=== PATIENT | female | born 1960 | race Caucasian/White ===

== ENCOUNTER 2020-04-12 11:26 | Day surgery (SDC) | payer MEDICAID, SELFPAY ==
[2020-04-05 13:34] VITALS: BMI 34.0
--- NOTE | 2020-04-11 14:24 | HO.ANESPROP2 ---
Documented by User: Malgorzata Doss 04/11/20 14:26 HPI - Anesthesia Eval Consult details Narrative: 59yo F for Upper Endoscopy and Colonoscopy [facility] Past Medical History Medical History Asthma Depression Diabetes Elevated cholesterol Fibromyalgia GERD (gastroesophageal reflux disease) Hepatitis HTN (hypertension) Neuropathy Sleep apnea Surgical History Surgical History Hx of excision of mass Hx of hernia repair S/P insertion of spinal cord stimulator Social History Social History Smoking Status: Current every day smoker Tobacco Type: Cigarette Cigarettes Per Day: 20 Years Smoked: 48 Use of substances other than those prescribed or required for medical reasons: No Advance Directives Information Provided: No Meds Allergies Allergy/AdvReac Type Severity Reaction Status Date / Time iodine Allergy Severe THROAT Verified 04/05/20 13:32 CLOSES ibuprofen AdvReac Intermediate UPSET Verified 04/05/20 13:32 STOMACH Home Medications Medication Instructions Recorded Confirmed Type albuterol sulfate [ProAir HFA] 2 puff INHALATION Q4-6H PRN 04/05/20 04/05/20 History atorvastatin 20 mg PO BEDTIME 04/05/20 04/05/20 History bupropion HCl [Wellbutrin XL] 150 mg PO QAM 04/05/20 04/05/20 History clonazepam 0.5 mg PO BEDTIME 04/05/20 04/05/20 History docusate sodium [Colace] 100 mg PO DAILY 04/05/20 04/05/20 History duloxetine 30 mg PO DAILY 04/05/20 04/05/20 History fluticasone furoate [Veramyst] 1 spray INTRANASAL DAILY 04/05/20 04/05/20 History fluticasone propionate [Flovent 1 puff INHALATION BID 04/05/20 04/05/20 History HFA] gabapentin 800 mg PO DAILY 04/05/20 04/05/20 History insulin detemir U-100 [Levemir SUBCUT 04/05/20 History U-100 Insulin] lactulose 10 g PO BEDTIME 04/05/20 04/05/20 History lisinopril 20 mg PO DAILY 04/05/20 04/05/20 History loratadine 10 mg PO DAILY 04/05/20 04/05/20 History meloxicam 15 mg PO DAILY 04/05/20 04/05/20 History metformin 500 mg PO BID 04/05/20 04/05/20 History oxycodone-acetaminophen [Percocet] 1 tab PO Q6H PRN 04/05/20 04/12/20 History pantoprazole 40 mg PO DAILY 04/05/20 04/05/20 History sucralfate [Carafate] 1 g PO BID 04/05/20 04/05/20 History trazodone 100 mg PO BEDTIME 04/05/20 04/05/20 History Exam Exam Date and Time: April 11, 2020 1424 Height,Weight and Vital Signs: Height 5 ft 4 in Weight 89.811 kg Assessment and Plan Assessment Anesthesia Assessment: Chart Reviewed Documented by User: Edith Lopez 04/12/20 11:42 PMFSH Past Medical History Medical History Asthma Depression Diabetes Elevated cholesterol Fibromyalgia GERD (gastroesophageal reflux disease) Hepatitis HTN (hypertension) Neuropathy Sleep apnea Surgical History Surgical History Hx of excision of mass Hx of hernia repair S/P insertion of spinal cord stimulator Social History Social History Smoking Status: Current every day smoker Tobacco Type: Cigarette Cigarettes Per Day: 20 Years Smoked: 48 Use of substances other than those prescribed or required for medical reasons: No Advance Directives Information Provided: No Meds Allergies Allergy/AdvReac Type Severity Reaction Status Date / Time iodine Allergy Severe THROAT Verified 04/05/20 13:32 CLOSES ibuprofen AdvReac Intermediate UPSET Verified 04/05/20 13:32 STOMACH Home Medications Medication Instructions Recorded Confirmed Type albuterol sulfate [ProAir HFA] 2 puff INHALATION Q4-6H PRN 04/05/20 04/05/20 History atorvastatin 20 mg PO BEDTIME 04/05/20 04/05/20 History bupropion HCl [Wellbutrin XL] 150 mg PO QAM 04/05/20 04/05/20 History clonazepam 0.5 mg PO BEDTIME 04/05/20 04/05/20 History docusate sodium [Colace] 100 mg PO DAILY 04/05/20 04/05/20 History duloxetine 30 mg PO DAILY 04/05/20 04/05/20 History fluticasone furoate [Veramyst] 1 spray INTRANASAL DAILY 04/05/20 04/05/20 History fluticasone propionate [Flovent 1 puff INHALATION BID 04/05/20 04/05/20 History HFA] gabapentin 800 mg PO DAILY 04/05/20 04/05/20 History insulin detemir U-100 [Levemir SUBCUT 04/05/20 History U-100 Insulin] lactulose 10 g PO BEDTIME 04/05/20 04/05/20 History lisinopril 20 mg PO DAILY 04/05/20 04/05/20 History loratadine 10 mg PO DAILY 04/05/20 04/05/20 History meloxicam 15 mg PO DAILY 04/05/20 04/05/20 History metformin 500 mg PO BID 04/05/20 04/05/20 History oxycodone-acetaminophen [Percocet] 1 tab PO Q6H PRN 04/05/20 04/12/20 History pantoprazole 40 mg PO DAILY 04/05/20 04/05/20 History sucralfate [Carafate] 1 g PO BID 04/05/20 04/05/20 History trazodone 100 mg PO BEDTIME 04/05/20 04/05/20 History Exam Airway Mallampati Class: III TM Dist: >3cm Neck ROM: Full Heart: RRR Lungs: CTA
[2020-04-12 11:34] VITALS: BP 152/72; PULSE 76; RESP 16; TEMP 36.4; O2SAT 97
--- NOTE | 2020-04-12 11:42 | HO.ANESPROP2 ---
[facility] Past Medical History Medical History Asthma Depression Diabetes Elevated cholesterol Fibromyalgia GERD (gastroesophageal reflux disease) Hepatitis HTN (hypertension) Neuropathy Sleep apnea Surgical History Surgical History Hx of excision of mass Hx of hernia repair S/P insertion of spinal cord stimulator Social History Social History Smoking Status: Current every day smoker Tobacco Type: Cigarette Cigarettes Per Day: 20 Years Smoked: 48 Use of substances other than those prescribed or required for medical reasons: No Advance Directives Information Provided: No Meds Allergies Allergy/AdvReac Type Severity Reaction Status Date / Time iodine Allergy Severe THROAT Verified 04/05/20 13:32 CLOSES ibuprofen AdvReac Intermediate UPSET Verified 04/05/20 13:32 STOMACH Home Medications Medication Instructions Recorded Confirmed Type albuterol sulfate [ProAir HFA] 2 puff INHALATION Q4-6H PRN 04/05/20 04/05/20 History atorvastatin 20 mg PO BEDTIME 04/05/20 04/05/20 History bupropion HCl [Wellbutrin XL] 150 mg PO QAM 04/05/20 04/05/20 History clonazepam 0.5 mg PO BEDTIME 04/05/20 04/05/20 History docusate sodium [Colace] 100 mg PO DAILY 04/05/20 04/05/20 History duloxetine 30 mg PO DAILY 04/05/20 04/05/20 History fluticasone furoate [Veramyst] 1 spray INTRANASAL DAILY 04/05/20 04/05/20 History fluticasone propionate [Flovent 1 puff INHALATION BID 04/05/20 04/05/20 History HFA] gabapentin 800 mg PO DAILY 04/05/20 04/05/20 History insulin detemir U-100 [Levemir SUBCUT 04/05/20 History U-100 Insulin] lactulose 10 g PO BEDTIME 04/05/20 04/05/20 History lisinopril 20 mg PO DAILY 04/05/20 04/05/20 History loratadine 10 mg PO DAILY 04/05/20 04/05/20 History meloxicam 15 mg PO DAILY 04/05/20 04/05/20 History metformin 500 mg PO BID 04/05/20 04/05/20 History oxycodone-acetaminophen [Percocet] 1 tab PO Q6H PRN 04/05/20 04/12/20 History pantoprazole 40 mg PO DAILY 04/05/20 04/05/20 History sucralfate [Carafate] 1 g PO BID 04/05/20 04/05/20 History trazodone 100 mg PO BEDTIME 04/05/20 04/05/20 History Exam Exam Date and Time: April 12, 2020 1142 Height,Weight and Vital Signs: Height 5 ft 4 in Weight 89.811 kg Last Vital Signs Temp 97.5 F 04/12/20 11:34 Pulse 76 04/12/20 11:34 Resp 16 04/12/20 11:34 BP 152/72 H 04/12/20 11:34 Pulse Ox 97 04/12/20 11:34 Assessment and Plan Assessment Anesthesia Assessment: Anesthesia Plan Discussed, Smoking Cess. Discussed and Chart Reviewed Final Anesthetic Review NPO: Yes ASA Class: III Final Preanesthetic Review: No Changes in Pt Med Stat, Meds/Allgs Chart Reviewed, Consent Obtained/Reviewed and Anes Risks/Benef Reviewed Patient Risk: Intermediate Anesthetic Plan Anesthetic Plan: MAC: Disposition: Standard PACU
--- NOTE | 2020-04-12 12:12 | MHC.SHP ---
Pre-Procedural Eval Section B Chief Complaint: EPIGASTRIC PAIN, SCREENING Relevant Social History: Tobacco Use Present Medications: see Short Stay Collaborative assessment Medical History: Significant History (Asthma, Depression, Diabetes, Elevated cholesterol, Fibromyalgia, GERD (gastroesophageal reflux disease), Hepatitis, HTN (hypertension), Neuropathy, Sleep apnea) History of Previous Operations: Relevant previous surgery/procedure and date(s) (hernia repair) Allergies: Allergies Allergy/AdvReac Type Severity Reaction Status Date / Time iodine Allergy Severe THROAT Verified 04/05/20 13:32 CLOSES ibuprofen AdvReac Intermediate UPSET Verified 04/05/20 13:32 STOMACH Review of Systems Sugical H&P ROS: Negative: Constitution, Cardiovascular, Respiratory, Neurological, Psychiatric, Hem-Onc, Allergic/Immunologic, Gastrointestinal, Genitourinary, Musculoskeletal, Integumentary, Endocrine and Eyes/Ears/Nose/Throat Exam Surgical H&P Exam: Normal: HEENT, Normal: Heart, Normal: Lungs, Normal: Extremities, Normal: Abdomen, Normal: Skin and Normal: Neurological Plan Diagnosis/Plan: Unchanged Patient has been examined and remains a candidate for the planned procedure
[2020-04-12 12:22] LABS: Glucose, Whole Blood 99 mg/dL (60-115)
--- NOTE | 2020-04-12 12:37 | P.OP_ITS ---
Operative Note Operative Note Date of Service: 04/12/20 Narrative: Operative Information Procedure Description: EGD, Colonoscopy FLEXIBLE TRANSORAL UPPER GASTROINTESTINAL ENDOSCOPY AND COLONOSCOPY PROCEDURE NOTE UPPER ENDOSCOPY Consent: Indications for the procedure and potential complications of bleeding, perforation, reaction to medications and missed diagnosis were discussed with the patient and informed consent was obtained. Instrument: Olympus GIF H 190 J mid size upper endoscope Monitoring: Vital signs and clinical assessment, continuous EKG monitoring, Pulse oximetry, Carbon Dioxide monitoring and blood pressure monitoring were done throughout the procedure. Procedure: The patient was placed in the left lateral decubitis position and pre-procedure medications were administered and a bite block was placed. The endoscope was inserted into the mouth and advanced under direct vision to the third part of duodenum. A careful inspection was made as the upper endoscope was withdrawn including a retroflexed examination of the proximal stomach; Findings and interventions are described below. Findings: Larynx:normal Esophagus: GE junction at 37 cm, diaphragm hiatus at 37 cm, normal mucosa, no varices seen Stomach: patchy erythema mucosa. Biopsies were obtained. Grade 2 flap valve on retroflexed examination of the cardia. Duodenum: Normal bulb and descending duodenum, bx taken Intervention: Biopsies as noted above COLONOSCOPY Instrument: Olympus variable stiffness pediatric scope 190L Colonoscopy Monitoring: Vital signs and clinical assessment, continuous EKG monitoring, Pulse oximetry, Carbon Dioxide monitoring and blood pressure monitoring were done throughout the procedure. Colon withdrawal time was 10 minutes. Procedure: The patient was placed in the left lateral decubitis position and pre-procedure medications were administered. After a digital rectal examination of the ano-rectum, the video colonoscope was inserted into the rectum and advanced through the colon to the cecum/TI. The colonoscope was slowly withdrawn in a retrograde panoramic fashion and the colon mucosa was carefully examined including a retroflexed view of the rectum. Findings and interventions are described below. Procedure Difficulty:difficult due to looping, patient coughing thru out procedure Findings: Terminal Ileum-not intubated but appeared lipomatous Cecum:normal Ascending Colon: normal Transverse Colon -normal Descending Colon:normal Sigmoid Colon: normal Rectum: Retroflexion with small internal hemorrhoids, grade I Anorectum - normal Colon preparation: Jenkins Bowel Preparation Scale Right colon; 2 Transverse colon: 2 Left colon; 2 (0 = Unprepared colon segment with mucosa not seen due to solid stool that cannot be cleared. 1 = Portion of mucosa of the colon segment seen, but other areas of the colon segment not well seen due to staining, residual stool and/or opaque liquid. 2 = Minor amount of residual staining, small fragments of stool and/or opaque liquid, but mucosa of colon segment seen well. 3 = Entire mucosa of colon segment seen well with no residual staining, small fragments of stool or opaque liquid) Impression and Post Procedure Diagnosis: Endoscopy Findings: gastritis Colonoscopy Findings: internal hemorrhoids Plan: Await Pathology results Repeat Colonoscopy in 5 years or earlier if clinically indicated High fiber diet leaflet avoid straining at stool, epsom salts and sitz bath, anusol supps or cream as needed Above findings were reviewed with the patient and relevant handouts were provided if indicated.
--- NOTE | 2020-04-12 12:37 | PM.OP ---
Brief Operative Note Date of Service: 04/12/20 Pre-op diagnosis: epigastric pain-improved now and colon screening Post-op diagnosis: same Procedure: see op note Surgeon: Evelyn Ruiz MD Anesthesia: MAC Estimated blood loss (mL): 0 Condition: stable Disposition: PACU
[2020-04-12 13:09] VITALS: BP 117/90; PULSE 91; RESP 20; TEMP 37; O2SAT 100
[2020-04-12 13:24] VITALS: BP 151/69; PULSE 69; RESP 22; TEMP 37; O2SAT 100
[2020-04-12 14:00] LABS: COVID-19 Test Negative (Negative); IDNOW Serial# 9DD0AD1C
== END 2020-04-12 14:27 | disposition home or self-care (01) ==
PROVIDERS: PCP Internal Medicine Geriatric Medicine; Visit Provider Internal Medicine Gastroenterology
PROC: (CPT 45380; principal; 2020-04-12 12:30)
DX: Z12.11 Encounter for screening for malignant neoplasm of colon (principal); K29.70 Gastritis, unspecified, without bleeding; K64.8 Other hemorrhoids; K56.2 Volvulus; E11.9 Type 2 diabetes mellitus without complications; I10 Essential (primary) hypertension; Z79.4 Long term (current) use of insulin; Z79.899 Other long term (current) drug therapy; Z20.828 Contact with and (suspected) exposure to other viral communicable diseases
CPT/HCPCS: 45380; 43239; 82947; 87635; 88305; 88342

== ENCOUNTER → 2020-06-01 10:37 | Outpatient (BNVA) | payer MEDICAID, SELFPAY | PROVIDERS: PCP Internal Medicine Geriatric Medicine; Visit Provider Internal Medicine Pulmonary Disease | DX: J44.9 Chronic obstructive pulmonary disease, unspecified (principal); R05 Cough; R91.8 Other nonspecific abnormal finding of lung field | CPT/HCPCS: 99202 ==

== ENCOUNTER 2020-06-22 11:49 | Outpatient (REF) | payer MEDICAID, SELFPAY | END 2020-06-22 11:50 | disposition home or self-care (01) | LOC: HO.RESP 11:49 | PROVIDERS: Visit Provider Internal Medicine Pulmonary Disease | DX: J44.9 Chronic obstructive pulmonary disease, unspecified (principal) | CPT/HCPCS: 94010; 99212 ==

== ENCOUNTER 2020-06-24 11:16 | Outpatient (REF) | payer MEDICAID, SELFPAY ==
--- NOTE | ~2020-06-24 | CT_ITS ---
EXAMINATION: CT CHEST WITHOUT CONTRAST CLINICAL INFORMATION: Abnormal finding of lung givens. COMPARISON: Chest x-ray 11/03/2015 TECHNIQUE: Multidetector volumetric CT imaging of the chest was done. Axial MIP volume rendering provided. Sagittal and coronal reformatted images were obtained. This CT examination was performed using dose optimization techniques as appropriate, variously including the following: *Automated exposure control *Adjustment of mA and/or kV according to patient size (this includes techniques or standardized protocols for targeted exams where dose is matched to indication/reason for exam; i.e. extremities or head) *Use of iterative reconstruction technique DLP: 217 mGy-cm FINDINGS: INTERACTIVE DEVELOPER: Unremarkable. LUNGS: There are punctate 1 mm scattered calcifications seen throughout the lungs. No noncalcified pulmonary nodules or mass seen. The lungs are expanded without any acute consolidation or mass. MEDIASTINUM: The thyroid lobes are symmetrical with a small hypodense nodule in the left lobe. The central trachea and bronchi are widely patent. The heart size and great vessels are normal caliber. There is no pericardial effusion. No abnormal size mediastinal or hilar lymph nodes seen. PLEURA: There is no pleural effusion. No pleural mass or thickening. AXILLA: No lymphadenopathy. UPPER ABDOMEN: Visualized liver, spleen, pancreas, and bilateral adrenal glands are unremarkable. OSSEOUS STRUCTURES: There is no lytic or sclerotic process. There is mild ventral spondylosis mid and lower dorsal spine. There is a posterior epidural space electrode. CT/CT chest wo con IMPRESSION: Scattered punctate calcifications throughout both lungs likely small granulomas. No noncalcified nodule, mass or consolidation seen. Hypodense nodule left thyroid lobe. Recommend ultrasound correlation.
== END 2020-06-24 11:17 | disposition home or self-care (01) ==
LOC: HO.CT 11:16
PROVIDERS: Visit Provider Internal Medicine Pulmonary Disease
DX: R91.8 Other nonspecific abnormal finding of lung field (principal)
CPT/HCPCS: 71250

== ENCOUNTER → 2020-07-11 08:42 | Outpatient (BNVA) | payer MEDICAID, SELFPAY | PROVIDERS: PCP Internal Medicine Geriatric Medicine; Referring Provider Internal Medicine Geriatric Medicine; Visit Provider Internal Medicine Gastroenterology ==

== ENCOUNTER 2020-11-03 14:12 | Emergency (ER) | payer MEDICAID, SELFPAY ==
[2020-11-03] VITALS (7 sets, daily range): BP systolic 118–180; BP diastolic 49–92; PULSE 73–83; RESP 15–24; TEMP 36.7–36.9; O2SAT 95–98; BMI 37.5
--- NOTE | 2020-11-03 | ECG_ITS ---
Test Reason : CHEST PRESSURE Blood Pressure : / mmHG Vent. Rate : 078 BPM Atrial Rate : 078 BPM P-R Int : 150 ms QRS Dur : 062 ms QT Int : 348 ms P-R-T Axes : 048 009 041 degrees QTc Int : 396 ms Normal sinus rhythm Normal ECG When compared to the previous EKG of No significant changes seen Referred By: Kya Ge Electronically Signed By:Jese Guzman
--- NOTE | ~2020-11-03 | XR_ITS ---
EXAMINATION: XR CHEST CLINICAL INFORMATION: Chest pain, chronic shortness of breath COMPARISON: Chest radiographs 07/05/2017, 11/03/2015, CT chest 06/24/2020. IT problems at time of imaging. Preliminary report provided 11/03/2020 at 1725 hours. TECHNIQUE: Portable upright AP view of the chest was obtained. FINDINGS: Heart is within upper limits of normal size. The vascularity is normal. The lungs are grossly clear. There is no lobar or segmental airspace consolidation or effusion. No pneumothorax or pleural reaction. Spinal stimulator leads are again noted overlying mid thoracic spine. XR/XR chest 1V IMPRESSION: Unremarkable examination.
--- NOTE | 2020-11-03 16:43 | ED_ITS ---
HPI - General Adult General Chief complaint: General Medical Stated complaint: weakness, tight chest pain Time Seen by Provider: 11/03/20 16:30 Source: patient Mode of arrival: ambulatory Limitations: no limitations History of Present Illness HPI narrative: Patient comes emergency room complaining of 2 weeks of feeling intermittent episodes of feeling tired and chest tightness. Patient states that she feels like she is ?melting?. Patient states she has this episodes approximately 4 times per day. At this moment, patient states she is asymptomatic. Denies chest pain, no shortness of breath, not feeling tired. Patient denies being sick recently, no nausea vomiting diarrhea, no UTI or URI symptoms. Related Data Home Medications Medication Instructions Recorded Confirmed albuterol sulfate [ProAir HFA] 2 puff INHALATION Q4-6H PRN 04/05/20 04/05/20 atorvastatin 20 mg PO BEDTIME 04/05/20 04/05/20 bupropion HCl [Wellbutrin XL] 150 mg PO QAM 04/05/20 04/05/20 clonazepam 0.5 mg PO BEDTIME 04/05/20 04/05/20 docusate sodium [Colace] 100 mg PO DAILY 04/05/20 04/05/20 duloxetine 30 mg PO DAILY 04/05/20 04/05/20 fluticasone furoate [Veramyst] 1 spray INTRANASAL DAILY 04/05/20 04/05/20 gabapentin 800 mg PO DAILY 04/05/20 04/05/20 insulin detemir U-100 [Levemir SUBCUT 04/05/20 U-100 Insulin] lactulose 10 g PO BEDTIME 04/05/20 04/05/20 lisinopril 20 mg PO DAILY 04/05/20 04/05/20 loratadine 10 mg PO DAILY 04/05/20 04/05/20 meloxicam 15 mg PO DAILY 04/05/20 04/05/20 metformin 500 mg PO BID 04/05/20 04/05/20 oxycodone-acetaminophen [Percocet] 1 tab PO Q6H PRN 04/05/20 04/12/20 trazodone 100 mg PO BEDTIME 04/05/20 04/05/20 Previous Rx's Medication Instructions Recorded bisacodyl 5 mg tablet,delayed 10 mg PO ONCE 1 Days #2 tab 04/11/20 release pantoprazole 40 mg tablet,delayed 40 mg PO BID 30 Days #60 tab 06/01/20 release fluticasone furoate 200 1 inh INHALATION DAILY 30 Days #1 07/04/20 mcg-vilanterol 25 mcg/dose ea inhalation powder umeclidinium 62.5 mcg/actuation 1 inh INHALATION DAILY 30 Days #1 07/04/20 blister powder for inhalation ea sucralfate 100 mg/mL oral 10 ml PO BID #600 ml 08/09/20 suspension Allergies Allergy/AdvReac Type Severity Reaction Status Date / Time iodine Allergy Severe THROAT Verified 11/03/20 15:19 CLOSES ibuprofen AdvReac Intermediate UPSET Verified 11/03/20 15:19 STOMACH Review of Systems Review of Systems: Constitutional : No Weight loss, No Fever, No Chills, No Ni ght Sweats, intermittent episodes Fatigue, No Malaise ENT/Mouth : No Hearing loss, No Ear Pain, No Nasal Congestion, No Sinus Pain, No Hoarseness, No sore throat, No Rhinorrhea, No Swallowing Difficulty Eyes: No Eye Pain, No Swelling, No Redness, No Foreign Body, No Discharge, No Vision Changes Cardiovascular : Intermittent chest pressure, no Chest Pain, No SOB, No Dyspnea on Exertion, No Orthopnea, No Edema, No Palpitations Respiratory : No Cough, No Sputum, No Wheezing, No Smoke Exposure, No Dyspnea Gastrointestinal : No Nausea, No Vomiting, No Diarrhea, No Constipation, No abdominal Pain, No Hematochezia, No Melena Genitourinary : no irregular bleeding, No Dysuria, No Urinary Frequency, No Hematuria, No Urinary Incontinence, No Urgency, No Flank Pain, No Urinary Flow Changes, No Hesitancy Musculoskeletal : No joint pain, No Myalgias, No Joint Swelling Skin : No Skin Lesions, No rash Neuro : No Weakness, No Numbness, No Paresthesias, No Loss of Consciousness, No Dizziness, the Mitten episodes Headache Psych : No Anxiety/Panic, No Depression, No SI/HI/AH/VH, No Social Issues, Heme/Lymph: No Bruising, No Bleeding,No Lymphadenopathy Endocrine : No Polyuria, No Polydipsia, No Temperature Intolerance PMFSH Past Medical History Medical History Asthma Depression Diabetes Elevated cholesterol Fibromyalgia GERD (gastroesophageal reflux disease) Hepatitis HTN (hypertension) Neuropathy Sleep apnea Surgical History H/O colonoscopy History of esophagogastroduodenoscopy (EGD) Hx of excision of mass Hx of hernia repair S/P insertion of spinal cord stimulator Social History Social History (Updated 07/11/20 @ 08:47 by DEIRDRE Toussaint) Household Members: None Alcohol intake: current Alcohol intake frequency: does not drink Alcohol type: wine Patient Tobacco Use Status: Current everyday Tobacco user Cigarette Packs Per Day: 1 Cigarettes Per Day: 20 Years Smoked: 48 Smoked in Last 30 Days: Yes Substance Use Type: Marijuana Advance Directives: No Advance Directives Information Provided: No Patient : No Physical Exam Vital Signs: Vital Signs: Last Vital Signs Temp 98.0 F 11/03/20 16:08 Pulse 73 11/03/20 18:09 Resp 20 11/03/20 18:09 BP 180/92 H 11/03/20 18:09 Pulse Ox 95 11/03/20 18:09 Body Mass Index 37.5 Appearance: Alert. Oriented X3. No acute distress. Eyes: Pupils equal, round and reactive to light. ENT: Pharynx normal. Neck: Normal inspection. Neck supple. No lymph nodes noted. No crepitus CVS: Normal heart rate and rhythm. Pulses normal. Normal S1 and S2 Respiratory: No respiratory distress. Breath sounds normal. No Wheezing. No rales Abdomen: Soft and nontender. No rigidity. No distention. good BS x4 Skin: Skin warm and dry. Normal skin color. Normal skin turgor. Extremities: No lower extremity edema. No lower extremity edema. No Lacerations. No Rash Neuro: Oriented X 3. No motor deficit. No sensory deficit. Moving all extermities. No slurred speech. Course Course Course Narrative: I discussed the labs with the patient, patient does have anemia, her hemoglobin is lower than usual. Patient states that she is known to be anemic, she is already taking iron pills. At this time, blood transfusion is not indicated. At this time patient remains asymptomatic. Patient will follow-up with her primary care physician Medical Decision Making Lab Data Result diagrams: 11/03/20 17:01 11/03/20 17:01 Labs: Lab Results 11/03/20 11/03/20 11/03/20 Range/Units 17:01 17:01 17:01 WBC 5.7 (4.8-10.8) X10*3/uL RBC 3.93 L (4.20-5.50) X10*6/uL Hgb 10.2 L (12.0-16.0) g/dl Hct 33.7 L (37-47) % MCV 85.8 (80-98) fL MCH 26.0 L (27.0-33.0) pg MCHC 30.3 L (31.0-35.0) g/dl RDW 14.6 (11.0-16.0) % Plt Count 146 L (160-400) X10*3/uL MPV 10.7 (9.4-12.3) fL Immature Gran % (Auto) 0.4 (0.0-0.4) % Neut % (Auto) 63.3 (45-73) % Lymph % (Auto) 26.7 (20-40) % Fleming % (Auto) 8.0 (2-11) % Eos % (Auto) 1.2 (0-4) % Baso % (Auto) 0.4 (0-2) % Lymph # (Auto) 1.5 (1.2-4.9) X10*3/uL Fleming # (Auto) 0.5 (0.1-1.2) X10*3/uL Eos # (Auto) 0.1 (0.0-0.4) X10*3/uL Baso # (Auto) 0.0 (0.0-0.2) X10*3/uL Abs Immat Gran (auto) 0.02 (0.00-0.03) X10*3/uL Absolute Neuts (auto) 3.6 (2.0-8.3) X10*3/uL Absolute Nucleated RBC 0.000 (0.0-0.012) X10*3/uL Nucleated RBC % (auto) 0.0 (0.0-0.2) /100WBC PT 12.3 (10.8-13.0) SEC INR 1.0 (0.9-1.1) Sodium 140 (135-145) mmol/L Potassium 5.1 (3.3-5.1) mmol/L Chloride 107 (96-108) mmol/L Carbon Dioxide 24 (22-29) mmol/L Anion Gap 14 (12-20) BUN 20 H (9-16) mg/dL Creatinine 0.97 (0.5-1.4) mg/dL Estim Creat Clear Calc 68.0 Estimated GFR 59 Random Glucose 188 H (60-115) mg/dL Calcium 9.1 (8.4-10.2) mg/dL Magnesium 1.7 (1.6-2.6) mg/dL Total Bilirubin 0.2 (0.0-1.0) mg/dL Direct Bilirubin < 0.2 (0.0-0.5) mg/dL AST 19 (5-31) U/L ALT 13 (0-31) U/L Alkaline Phosphatase 87 (39-117) U/L Troponin I High Sens (<3.5-17.0) ng/L B-Natriuretic Peptide (<100) pg/mL Total Protein 7.1 (6.5-8.0) g/dL Albumin 4.0 (3.5-5.0) g/dL Urine Color Urine Appearance Urine pH (5.0-8.0) Ur Specific [place] (1.005-1.025) Urine Protein (NEG-TRACE) MG/DL Urine Glucose (UA) (NEG) MG/DL Urine Ketones (NEG) MG/DL Urine Blood (NEG) Urine Nitrite (NEG) Ur Leukocyte Esterase (NEG) COVID-19 ([facility]) (Negative) COVID-19 Clin Com 11/03/20 11/03/20 11/03/20 Range/Units 17:01 17:01 17:37 WBC (4.8-10.8) X10*3/uL RBC (4.20-5.50) X10*6/uL Hgb (12.0-16.0) g/dl Hct (37-47) % MCV (80-98) fL MCH (27.0-33.0) pg MCHC (31.0-35.0) g/dl RDW (11.0-16.0) % Plt Count (160-400) X10*3/uL MPV (9.4-12.3) fL Immature Gran % (Auto) (0.0-0.4) % Neut % (Auto) (45-73) % Lymph % (Auto) (20-40) % Fleming % (Auto) (2-11) % Eos % (Auto) (0-4) % Baso % (Auto) (0-2) % Lymph # (Auto) (1.2-4.9) X10*3/uL Fleming # (Auto) (0.1-1.2) X10*3/uL Eos # (Auto) (0.0-0.4) X10*3/uL Baso # (Auto) (0.0-0.2) X10*3/uL Abs Immat Gran (auto) (0.00-0.03) X10*3/uL Absolute Neuts (auto) (2.0-8.3) X10*3/uL Absolute Nucleated RBC (0.0-0.012) X10*3/uL Nucleated RBC % (auto) (0.0-0.2) /100WBC PT (10.8-13.0) SEC INR (0.9-1.1) Sodium (135-145) mmol/L Potassium (3.3-5.1) mmol/L Chloride (96-108) mmol/L Carbon Dioxide (22-29) mmol/L Anion Gap (12-20) BUN (9-16) mg/dL Creatinine (0.5-1.4) mg/dL Estim Creat Clear Calc Estimated GFR Random Glucose (60-115) mg/dL Calcium (8.4-10.2) mg/dL Magnesium (1.6-2.6) mg/dL Total Bilirubin (0.0-1.0) mg/dL Direct Bilirubin (0.0-0.5) mg/dL AST (5-31) U/L ALT (0-31) U/L Alkaline Phosphatase (39-117) U/L Troponin I High Sens 4.9 (<3.5-17.0) ng/L B-Natriuretic Peptide 22 (<100) pg/mL Total Protein (6.5-8.0) g/dL Albumin (3.5-5.0) g/dL Urine Color YELLOW Urine Appearance CLEAR Urine pH 6.0 (5.0-8.0) Ur Specific [place] 1.025 (1.005-1.025) Urine Protein NEG (NEG-TRACE) MG/DL Urine Glucose (UA) NEG (NEG) MG/DL Urine Ketones NEG (NEG) MG/DL Urine Blood NEG (NEG) Urine Nitrite NEG (NEG) Ur Leukocyte Esterase NEG (NEG) COVID-19 ([facility]) Negative (Negative) COVID-19 Clin Com See Note Discharge Plan Discharge Clinical Impression: Fatigue Qualifiers: Fatigue type: unspecified Qualified Code(s): R53.83 - Other fatigue Anemia Qualifiers: Anemia type: unspecified type Qualified Code(s): D64.9 - Anemia, unspecified Patient Disposition: Home, Self-Care Instructions: Anemia (ED), Fatigue (ED) Additional Instructions: Please follow-up with your primary care physician tomorrow. If you have any worsening or new symptoms, please return to the emergency room or call 911 Prescriptions: No Action bisacodyl [Dulcolax (bisacodyl)] 5 mg tablet,delayed release (DR/EC) 10 mg PO ONCE 1 Days Qty: 2 RF: 0 Breo Ellipta 200-25 mcg/dose blister with device 1 inh inhalation DAILY 30 Days Qty: 1 RF: 6 Incruse Ellipta 62.5 mcg/actuation blister with device 1 inh inhalation DAILY 30 Days Qty: 1 RF: 6 sucralfate [Carafate] 100 mg/mL suspension 10 ml PO BID Qty: 600 RF: 3 metformin 500 mg Tablet 500 mg PO BID RF: 0 atorvastatin 20 mg Tablet 20 mg PO BEDTIME RF: 0 meloxicam 15 mg Tablet 15 mg PO DAILY RF: 0 lisinopril 20 mg Tablet 20 mg PO DAILY RF: 0 clonazepam 0.5 mg Tablet 0.5 mg PO BEDTIME RF: 0 gabapentin 800 mg Tablet 800 mg PO DAILY RF: 0 trazodone 100 mg Tablet 100 mg PO BEDTIME RF: 0 docusate sodium [Colace] 100 mg Capsule 100 mg PO DAILY RF: 0 oxycodone-acetaminophen [Percocet] 7.5-325 mg Tablet 1 tab PO Q6H PRN (Reason: Pain) RF: 0 albuterol sulfate [ProAir HFA] 90 mcg/actuation Hfa Aerosol Inhaler 2 puff INHALATION Q4-6H PRN (Reason: Wheezing) RF: 0 loratadine 10 mg Tablet 10 mg PO DAILY RF: 0 bupropion HCl [Wellbutrin XL] 150 mg Tablet Extended Release 24 Hr 150 mg PO QAM RF: 0 lactulose 10 gram/15 mL Solution 10 g PO BEDTIME RF: 0 Levemir U-100 Insulin 100 unit/mL Solution SUBCUT RF: 0 Veramyst 27.5 mcg/actuation Luna,Suspension 1 spray INTRANASAL DAILY RF: 0 duloxetine 30 mg Capsule, Delayed Rel Sprinkle 30 mg PO DAILY RF: 0 pantoprazole 40 mg tablet,delayed release (DR/EC) 40 mg PO BID 30 Days Qty: 60 RF: 3
[2020-11-03 17:05] LABS: MANUAL DIFF FLAG NO
[2020-11-03 17:08] LABS: Basophils Percent Auto 0.4 % (0-2); Eosinophils Absolute Auto 0.1 X10*3/uL (0.0-0.4); Eosinophils Percent Auto 1.2 % (0-4); Hematocrit 33.7 % (37-47); Hemoglobin 10.2 g/dl (12.0-16.0); Imm Gran Abs Auto 0.02 X10*3/uL (0.00-0.03); Imm Gran Pct Auto 0.4 % (0.0-0.4); Lymphocytes Absolute Auto 1.5 X10*3/uL (1.2-4.9); Lymphocytes Percent Auto 26.7 % (20-40); Mean Corpuscular HGB Conc 30.3 g/dl (31.0-35.0); Mean Corpuscular Volume 85.8 fL (80-98); Mean Platelet Volume 10.7 fL (9.4-12.3); Monocytes Absolute Auto 0.5 X10*3/uL (0.1-1.2); Neutrophils Absolute Auto 3.6 X10*3/uL (2.0-8.3); Neutrophils Percent Auto 63.3 % (45-73); Platelet Count 146 X10*3/uL (160-400); Red Blood Count 3.93 X10*6/uL (4.20-5.50); Red Cell Distribution Width 14.6 % (11.0-16.0); White Blood Count 5.7 X10*3/uL (4.8-10.8)
[2020-11-03 17:13] LABS: Prothrombin Time 12.3 SEC (10.8-13.0)
[2020-11-03 17:30] LABS: COVID-19 Test Negative (Negative)
[2020-11-03 17:39] LABS: Alanine Aminotransferase 13 U/L (0-31); Alkaline Phosphatase 87 U/L (39-117); Anion Gap 14 (12-20); Aspartate Amino Transferase 19 U/L (5-31); Bilirubin Direct < 0.2 mg/dL (0.0-0.5); Bilirubin Total 0.2 mg/dL (0.0-1.0); Blood Urea Nitrogen 20 mg/dL (9-16); Calcium 9.1 mg/dL (8.4-10.2); Carbon Dioxide 24 mmol/L (22-29); Chloride 107 mmol/L (96-108); Estimated Glomerular Filt Rate 59; Glucose Random 188 mg/dL (60-115); Magnesium 1.7 mg/dL (1.6-2.6); Potassium 5.1 mmol/L (3.3-5.1); Sodium 140 mmol/L (135-145); Total Protein 7.1 g/dL (6.5-8.0)
[2020-11-03 17:40] LABS: B Type Natriuretic Peptide 22 pg/mL (<100); Troponin-I High Sensitivity 4.9 ng/L (<3.5-17.0)
[2020-11-03 17:47] LABS: Glucose Urine UA NEG (NEG); Leukocyte Esterase Urine NEG (NEG); Nitrite Urine NEG (NEG); Specific Gravity - Urine 1.025 (1.005-1.025); Urine Blood NEG (NEG); Urine Ketones NEG (NEG); Urine Protein NEG (NEG-TRACE)
[2020-11-03 17:48] LABS: Appearance Urine CLEAR; Color Urine YELLOW
== END 2020-11-03 20:03 | disposition home or self-care (01) ==
PROVIDERS: Emergency Provider Emergency Medicine; PCP Internal Medicine Geriatric Medicine
DX: R53.83 Other fatigue (principal); D64.9 Anemia, unspecified; E11.9 Type 2 diabetes mellitus without complications; I10 Essential (primary) hypertension; J45.909 Unspecified asthma, uncomplicated; Z79.4 Long term (current) use of insulin; Z79.899 Other long term (current) drug therapy; Z20.822 Contact with and (suspected) exposure to COVID-19
CPT/HCPCS: 36415; 71045; 80048; 80076; 81003; 83735; 83880; 84484; 85025; 85610; 87635; 93005; 99283; 99284

== ENCOUNTER 2020-11-17 13:49 | Outpatient (REF) | payer MEDICAID, SELFPAY ==
[2020-11-17 14:45] LABS: MANUAL DIFF FLAG NO
[2020-11-17 14:49] LABS: Basophils Percent Auto 0.4 % (0-2); Eosinophils Absolute Auto 0.1 X10*3/uL (0.0-0.4); Eosinophils Percent Auto 1.5 % (0-4); Hematocrit 35.1 % (37-47); Hemoglobin 10.6 g/dl (12.0-16.0); Imm Gran Abs Auto 0.01 X10*3/uL (0.00-0.03); Imm Gran Pct Auto 0.2 % (0.0-0.4); Lymphocytes Absolute Auto 1.4 X10*3/uL (1.2-4.9); Lymphocytes Percent Auto 25.5 % (20-40); Mean Corpuscular HGB Conc 30.2 g/dl (31.0-35.0); Mean Corpuscular Hemoglobin 25.9 pg (27.0-33.0); Mean Corpuscular Volume 85.8 fL (80-98); Mean Platelet Volume 10.6 fL (9.4-12.3); Monocytes Absolute Auto 0.5 X10*3/uL (0.1-1.2); Monocytes Percent Auto 9.4 % (2-11); Neutrophils Absolute Auto 3.4 X10*3/uL (2.0-8.3); Platelet Count 156 X10*3/uL (160-400); Red Blood Count 4.09 X10*6/uL (4.20-5.50); Red Cell Distribution Width 15.1 % (11.0-16.0); White Blood Count 5.5 X10*3/uL (4.8-10.8)
== END 2020-11-17 13:50 | disposition home or self-care (01) ==
LOC: HO.LAB 13:49
PROVIDERS: PCP Internal Medicine Geriatric Medicine; Visit Provider Internal Medicine Pulmonary Disease
DX: Z91.09 Other allergy status, other than to drugs and biological substances (principal)
CPT/HCPCS: 36415; 85025; 86003; 99212

== ENCOUNTER → 2021-02-22 13:48 | Outpatient (BNVA) | payer MEDICAID, SELFPAY | PROVIDERS: PCP Internal Medicine Geriatric Medicine; Visit Provider Internal Medicine Pulmonary Disease | DX: J44.9 Chronic obstructive pulmonary disease, unspecified (principal); G47.33 Obstructive sleep apnea (adult) (pediatric) | CPT/HCPCS: 99212 ==

== ENCOUNTER → 2021-03-20 08:57 | Outpatient (REF) | payer MEDICAID, SELFPAY | LOC: HO.SL 08:57 | PROVIDERS: PCP Internal Medicine Geriatric Medicine; Visit Provider Internal Medicine Pulmonary Disease | DX: G47.33 Obstructive sleep apnea (adult) (pediatric) (principal) | CPT/HCPCS: 95806 ==

== ENCOUNTER 2021-04-04 08:37 | Outpatient (REF) | payer MEDICAID, SELFPAY ==
--- NOTE | ~2021-04-04 | US_ITS ---
EXAMINATION: US ABDOMEN COMPLETE CLINICAL INFORMATION: Hepatic fibrosis. COMPARISON: Abdominal ultrasound 08/11/2018. CT abdomen 08/29/2018. TECHNIQUE: Real-time imaging of the abdominal viscera. FINDINGS: PANCREAS: Normal. ABDOMINAL AORTA: The proximal and mid abdominal aorta is normal caliber. The distal abdominal aorta is not visualized. INFERIOR VENA CAVA: Visualized portions are normal. LIVER: The liver is normal in size. The liver contour is normal. Parenchymal echogenicity is moderately increased. No focal hepatic lesion. GALLBLADDER: Surgically absent. COMMON BILE DUCT: Normal in caliber measuring 1.19 cm in diameter. RIGHT KIDNEY: Normal. No hydronephrosis. No renal calculi or focal parenchymal lesions. The kidney measures 9.3 cm in maximum dimension. LEFT KIDNEY: Normal. No hydronephrosis. No renal calculi or focal parenchymal lesions. The kidney measures 10.7 cm in maximum dimension. SPLEEN: Normal. The spleen measures 10.8 cm in maximum dimension. FREE FLUID: None. US/US abdomen complete IMPRESSION: Moderate increased liver echogenicity. No focal lesion seen. The rest of the abdominal ultrasound is unremarkable.
== END 2021-04-04 08:38 | disposition home or self-care (01) ==
LOC: HO.HMGCX 08:37
PROVIDERS: PCP Internal Medicine Geriatric Medicine; Visit Provider Internal Medicine Geriatric Medicine
DX: K74.00 Hepatic fibrosis, unspecified (principal)
CPT/HCPCS: 76700

== ENCOUNTER 2021-05-31 12:23 | Outpatient (REF) | payer MEDICAID, SELFPAY ==
--- NOTE | ~2021-05-31 | MM_ITS ---
EXAMINATION: MM SCREENING DIGITAL BREAST TOMOSYNTHESIS, BILATERAL CLINICAL INFORMATION: Screening. Asymptomatic. The lifetime risk of breast cancer based on the Tyrer-Cuzick Model is 3%. COMPARISON: Mammography: 05/26/2018, 06/04/2016, 05/30/2015 TECHNIQUE: Digital breast tomosynthesis is performed in both the craniocaudal and mediolateral oblique views along with computer-aided detection (CAD). Synthesized 2D images are generated from the tomosynthesis. Additional bilateral CC and additional bilateral MLO views are provided. FINDINGS: The breasts are almost entirely fatty (ACR BI-RADS breast composition Category a). There are no significant masses, abnormal calcifications, or other abnormalities. Background stromal markings are similar to prior studies. No developing density. No significant changes. MM/MM tomosynthesis screening BI IMPRESSION: No mammographic evidence of malignancy. ASSESSMENT: BI-RADS 1: Negative RECOMMENDATION: Routine annual mammography screening. This patient's information was entered into a reminder system with a target due date for their next mammogram.
== END 2021-05-31 12:24 | disposition home or self-care (01) ==
LOC: HO.MAMMO 12:23
PROVIDERS: PCP Internal Medicine Geriatric Medicine; Visit Provider Internal Medicine Geriatric Medicine
DX: Z12.31 Encounter for screening mammogram for malignant neoplasm of breast (principal)
CPT/HCPCS: 77063; 77067

== ENCOUNTER → 2021-06-15 10:00 | Outpatient (BNVA) | payer MEDICAID, SELFPAY | PROVIDERS: PCP Internal Medicine Geriatric Medicine; Visit Provider Internal Medicine Pulmonary Disease ==

== ENCOUNTER 2021-09-26 10:54 | Outpatient (REF) | payer MEDICAID, SELFPAY ==
[2021-09-26 11:39] LABS: MANUAL DIFF FLAG NO
[2021-09-26 11:56] LABS: Basophils Percent Auto 0.4 % (0-2); Eosinophils Absolute Auto 0.1 X10*3/uL (0.0-0.4); Eosinophils Percent Auto 1.3 % (0-4); Hematocrit 35.3 % (37.0-47.0); Hemoglobin 10.9 g/dl (12.0-16.0); Imm Gran Abs Auto 0.03 X10*3/uL (0.00-0.03); Imm Gran Pct Auto 0.4 % (0.0-0.4); Lymphocytes Absolute Auto 2.6 X10*3/uL (1.2-4.9); Lymphocytes Percent Auto 32.3 % (20-40); Mean Corpuscular HGB Conc 30.9 g/dl (31.0-35.0); Mean Corpuscular Hemoglobin 26.4 pg (27.0-33.0); Mean Corpuscular Volume 85.5 fL (80.0-98.0); Monocytes Absolute Auto 0.5 X10*3/uL (0.1-1.2); Monocytes Percent Auto 6.1 % (2-11); Neutrophils Absolute Auto 4.9 x10*3/uL (2.0-8.3); Neutrophils Percent Auto 59.5 % (45-73); Platelet Count 166 X10*3/uL (160-400); Red Blood Count 4.13 X10*6/uL (4.20-5.50); Red Cell Distribution Width 14.4 % (11.0-16.0); White Blood Count 8.2 X10*3/uL (4.8-10.8)
== END 2021-09-26 10:55 | disposition home or self-care (01) ==
LOC: HO.LAB 10:54
PROVIDERS: PCP Internal Medicine Geriatric Medicine; Visit Provider Internal Medicine Pulmonary Disease
DX: J44.9 Chronic obstructive pulmonary disease, unspecified (principal); G47.33 Obstructive sleep apnea (adult) (pediatric); Z91.09 Other allergy status, other than to drugs and biological substances
CPT/HCPCS: 36415; 82785; 85025; 99212

== ENCOUNTER → 2022-01-10 11:28 | Outpatient (BNVA) | payer MEDICAID, SELFPAY | PROVIDERS: PCP Internal Medicine Geriatric Medicine; Visit Provider Internal Medicine Pulmonary Disease | DX: J44.9 Chronic obstructive pulmonary disease, unspecified (principal); G47.33 Obstructive sleep apnea (adult) (pediatric); R05.9 Cough, unspecified | CPT/HCPCS: 99212 ==

== ENCOUNTER 2022-02-12 14:19 | Outpatient (REF) | payer MEDICAID, SELFPAY ==
--- NOTE | ~2022-02-12 | FL_ITS ---
EXAMINATION: XR BARIUM SWALLOW CLINICAL INFORMATION: Cough, dysphagia and aspiration. COMPARISON: None TECHNIQUE: Routine modified barium swallow was performed with lateral fluoroscopy in the presence of speech therapist. FINDINGS: Following oral administration of thin barium, there is laryngeal penetration without aspiration. No retention of barium is seen in the pharynx. On oral administration of thick barium, puree, solid food, nectar consistency barium, there is normal propagation of barium from the oral cavity through the pharynx and into esophagus. FLUOROSCOPY TIME: 2.0 minutes DOSE AREA PRODUCT: 1.349 uGy-m2 (microgray-meter squared) FL/FL barium swallow modified IMPRESSION: Episode of laryngeal penetration with thin barium. This was not seen with other consistencies of barium. Correlate with speech therapy results.
--- NOTE | 2022-02-15 18:21 | MHC.SL.IMP ---
Date of Plan of Treatment: 02/12/22 Onset of Symptoms/Illness: 02/12/07 Date Treatment Started: 02/12/22 Admitting Diagnosis: Asthma Depression Diabetes Elevated cholesterol Fibromyalgia GERD Hepatitis Hypertension Neuropathy Sleep apnea Primary Speech & Language Diagnosis: R13.12 Oropharyngeal Phase Dysphagia Reason for Today's Visit: 32849 Modified Barium Swallow Study Pre-evaluation Dietary Consistencies: Regular Pre-evaluation Liquid Consistency: Thin Pre-evaluation Medication Administration: Whole with Liquid Medical History: Modified Barium Swallow Study Fluoroscopic Evaluation of Swallowing Function CPT Code 22088 Evaluation Year: 2021 Reason for Study: Patient reports extensive history of dysphagia. Referring Physician: Jed Story MD Evaluating Clinician: Samia Funes MA, CCC-[facility] [employer] [facility] Study Number: 1 Patient Name: Louisa Levin Status: Outpatient Age: 61 Gender: Female MEDICAL HISTORY: Comorbidities: Asthma Depression Diabetes Elevated cholesterol Fibromyalgia GERD Hepatitis Hypertension Neuropathy Sleep apnea Current (pre-evaluation) Intake/Diet: Route: PO Diet Grade: Regular Liquid Consistencies: Thin Pre-Study Functional Oral Intake Scale (FOIS): 7- Total oral intake with no restrictions Pain: None reported at time of study SUBJECTIVE: Pt is a 61 year old female referred for a modified barium swallow study by Jed Story MD of [facility]. Pt stated she has been experiencing difficulty swallowing ?for a very long time,? reporting onset of dysphagia approximately 15 years ago. She reports that she sometimes chokes when eating or drinking or on saliva. Pt reported a coughing episode which resulted in her eyes both turning red when she woke up the next morning. Pt reports she feels globus sensation at times. Pt denies odynophagia. Pt reports that she can sometimes swallow without any difficulties, stating that these episodes seem to occur at random and do not seem to be happening more with any particular foods or drinks. Food and Liquid Trials: Oral Impairment: Lip Closure: Did not test Oral Impairment: Tongue Control During Bolus Hold: 1=Escape to lateral buccal cavity/floor of mouth (FOM) Oral Impairment: Bolus Preparation/Mastication: 1=Slow prolonged chewing/mashing with complete re-collection Oral Impairment: Bolus Transport/Lingual Motion: 2=Slowed tongue motion Oral Impairment: Oral Residue: 1=Trace residue lining oral structures Oral Impairment:Initiation of Pharyngeal Swallow: 3=Bolus head in pyriforms Pharyngeal Impairment: Soft Palate Elevation: 0=No bolus between soft palate (SP)/pharyngeal wall (PW) Pharyngeal Impairment: Laryngeal Elevation: 1=Partial thyroid cartilage/arytenoids to epiglottic petiole movement Pharyngeal Impairment: Anterior Hyoid Excursion: 1=Partial anterior movement Pharyngeal Impairment: Epiglottic Movement: 1=Partial inversion Pharyngeal Impairment: Laryngeal Vestibular Closure:: 1=Incomplete: narrow column air/contrast in laryngeal vestibule Pharyngeal Impairment: Pharyngeal Stripping Wave: 1=Present: diminished Pharyngeal Impairment: Pharyngeal Contraction: Did not test Pharyngeal Impairment: Pharyngoesophageal Segment Openin=Complete distension and complete duration: no obstruction of flow Pharyngeal Impairment: Tongue Base (TB) Retraction: 3=Wide column of contrast/air between TB and posterior PW Pharyngeal Impairment: Pharyngeal Residue: 1=Trace residue within or on pharyngeal structures Pharyngeal Impairment: Esophageal Clearance Upright Position: Did not test Impressions and Recommendations Clinical Observations: OBJECTIVE: Time-out: performed at 02:45 Evaluation Start: 02:30; Stop: 02:40 Patient Positioning: Seated 70-90 degrees Viewing Planes: LATERAL ONLY Contrast: MBSImP? Standardized Protocol using commercially prepared, standardized Barium viscosities, including: Varibar? THIN LIQUID (40% w/v, <15 cps) , Varibar? NECTAR (40% w/v, <150-450 cps) , 1/2 Shortbread Cookie (1 x1 x.25 ) MBSImP ID: [id number] MBSImP Results: Lip closure for intraoral bolus containment could not be assessed due to logistical reasons not related to physiologic impairment. Tongue control during bolus hold allowed bolus escape to the lateral buccal cavity/floor of mouth. Bolus preparation and mastication resulted in slow, prolonged chewing/mashing but with complete re-collection. Bolus transport/lingual motion was with slowed tongue motion. Oral residue was a trace, lining oral structures. Initiation of the pharyngeal swallow occurred when the bolus head was in the pyriform sinuses. Soft palate elevation resulted in no bolus between the soft palate and the pharyngeal wall. Laryngeal elevation was decreased, with partial superior movement of the thyroid cartilage/partial approximation of the arytenoids to the epiglottic petiole. Anterior hyoid excursion demonstrated partial anterior movement. Epiglottic movement resulted in partial inversion. Laryngeal vestibular closure was incomplete, with a narrow column of air/contrast noted within the laryngeal vestibule at the height of the swallow. Pharyngeal stripping wave was present, but diminished. Pharyngeal contraction could not be determined due to logistical reasons not related to physiologic impairment. Pharyngoesophageal segment opening was completely distended for complete duration with no obstruction of bolus flow. Tongue base retraction allowed a wide column of contrast or air between the retracted tongue base and the posterior pharyngeal wall. Pharyngeal residue was a trace within or on pharyngeal structures. Esophageal clearance in the upright position could not be assessed due to logistical reasons not related to physiologic impairment. Oral Impairment Score: 7 (absence of score, component 1) Pharyngeal Impairment Score: 8 (absence of score, component 13) Esophageal Impairment Score: --- (absence of score, component 17) Laryngeal Penetration and Aspiration: Penetration was observed in today's study. Thin Contrast entered the airway, remained above the vocal folds, and was ejected from the airway. ASSESSMENT: Clinician Assessment: This exam was conducted by a multidisciplinary team, included a speech pathologist, radiologist, and radiology physician assistant. Pt was seated upright at 90 degrees in a chair for lateral view only. Pt trialed the following liquid and solid consistencies: thin liquid barium, nectar thick liquid barium, pureed solid (mixture applesauce with barium paste), ground solid (mixture chicken salad with barium paste), regular solid (Ileana Doone cookie coated with barium paste). There was escape of bolus to floor of mouth. Mastication was mildly prolonged, characterized by piece meal deglutition pattern. Pt chewed bolus, swallowed partial bolus, chewed remaining bolus, and swallowed again to clear the oral cavity. Posterior lingual movements for transport of bolus were slowed. Pt demonstrated good oral clearance, trace oral residue subsequently cleared. Pharyngeal swallow trigger was delayed, initiated as bolus head reached pyriform sinuses. There was no nasopharyngeal reflux. Laryngeal elevation was incomplete with partial anterior hyoid excursion and partial epiglottic inversion. Laryngeal vestibular closure was incomplete. There were episodes of flash penetration with sips of thin liquid. Contrast entered the airway above the vocal folds and spontaneously and immediately ejected from the airway, with no subsequent aspiration. No aspiration or penetration with sips of nectar thick liquid or with solids. There was good clearance of the valleculae and pyriform sinuses. Trace residue on tongue base and posterior pharyngeal wall subsequently cleared. No obstruction of flow through the pharyngoesophageal segment opening. The following compensatory strategies have not been used until today's study, but when employed, improved swallowing function: [place]-thick Liquid eliminated Penetration Liquid Intake Recommendation: Thin Liquid Intake Strategies: Small Sips, No Straws Dietary Recommendations: Regular Medication Administration: Whole with Puree Please contact the pharmacy regarding appropriate crushable or liquid drug formulations that are available whenever modified delivery is recommended. Compensatory Strategies Recommended: Sitting Upright (90 deg) No Straw Small Bites and Sips Alternate Liquids/Solids Rate of Ingestion Change Avoid Specific Foods Supervision during eating and or drinking: None Needed Recommendation for Speech Therapy: N/A PLAN: Intake Recommendations: Route: PO Diet Grade: Regular Liquid Consistencies: Thin Post-Study Functional Oral Intake Scale (FOIS): 7- Total oral intake with no restrictions Evidence of flash penetration with thin liquids. No evidence of aspiration with consumption of liquids and solids during this exam. Good oral and pharyngeal clearance. Recommend resume unmodified diet with aspiration precautions: -Take small sips of liquid, one sip at a time -Avoid ?chugging? consecutive sips of liquid -Avoid the use of straws -One bite at a time and chew food well -Clear oral cavity before taking more bites -Moisten food with sauce/gravy as needed -Upright 90 degree position when eating/drinking Recommend patient to continue monitoring dysphagia. Contact PCP if there is any worsening of dysphagia, in which case patient may need re-evaluation. Therapy Recommendations: Therapy will be discontinued Prognosis for Improvement: The prognosis for the patient to meet nutritional needs by mouth is good based on degree of impairment. Clinician - Supplemental, Miscellaneous Communication: It is important to note MBSS objective studies are snapshots in time and Patient function might vary with factors such as time of day or concomitant medical conditions. For this reason, the final treatment plan for this patient should rest with their medical care team. Additional recommendations should be considered with the totality of the Patient in mind. Thank for the opportunity to participate in the care of this patient. If you have any questions about the content of this report, please contact the [facility] at [facility]. Education: Education regarding findings from today's study and plans for therapy were provided to Patient and family/caregiver through Verbal Instruction. Understanding was expressed by the Patient and family/caregiver. Flatbed Owner Operator Clinician/Clinical Fellow: No Supervisory Statement: N/A Speech Language Pathologist: Samia Funes M.A., [facility]
== END 2022-02-12 14:20 | disposition home or self-care (01) ==
LOC: HO.XRAY 14:19
PROVIDERS: Visit Provider Internal Medicine Pulmonary Disease
DX: R13.12 Dysphagia, oropharyngeal phase (principal); R05.9 Cough, unspecified
CPT/HCPCS: 74230; 92611

== ENCOUNTER → 2022-03-14 10:15 | Outpatient (BNVA) | payer MEDICAID, SELFPAY | PROVIDERS: PCP Internal Medicine Geriatric Medicine; Visit Provider Internal Medicine Pulmonary Disease | DX: J44.9 Chronic obstructive pulmonary disease, unspecified (principal); G47.33 Obstructive sleep apnea (adult) (pediatric); R05.9 Cough, unspecified | CPT/HCPCS: 99212 ==

== ENCOUNTER 2022-07-31 08:49 | Outpatient (REF) | payer MEDICAID, SELFPAY ==
--- NOTE | ~2022-07-31 | US_ITS ---
EXAMINATION: US ABDOMEN COMPLETE CLINICAL INFORMATION: Abdominal pain. COMPARISON: Ultrasound abdomen 09/11/2021 and 04/04/2021. CT abdomen 12/29/2018. TECHNIQUE: Real-time imaging of the abdominal viscera. Technically difficult study secondary to body habitus. FINDINGS: Technologist reports extremely limited study due to body habitus. PANCREAS: The visualized head and body of the pancreas appears unremarkable. Remainder of the pancreas is obscured by bowel gas. ABDOMINAL AORTA: The distal aorta obscured. Normal caliber of the more proximal aorta. INFERIOR VENA CAVA: Visualized portions are normal. LIVER: Very Limited evaluation. Diffuse increased parenchymal echogenicity. No focal hepatic lesion. There is no intrahepatic biliary duct dilatation seen. GALLBLADDER: Surgically absent. COMMON BILE DUCT: Normal in caliber measuring 1.1 cm in diameter. RIGHT KIDNEY: Normal. No hydronephrosis. No renal calculi or focal parenchymal lesions. The kidney measures 11.3 cm in maximum dimension. LEFT KIDNEY: Normal. No hydronephrosis. No renal calculi or focal parenchymal lesions. The kidney measures 10.6 cm in maximum dimension. SPLEEN: Normal. The spleen measures 11.7 cm in maximum dimension. FREE FLUID: None. US/US abdomen complete IMPRESSION: 1. Technically Extremely limited study due to body habitus. Recommend further evaluation with CT scan as clinically warranted. 2. There is generalized increase in hepatic echotexture, consistent with fatty infiltration or hepatocellular disease. Please correlate clinically. No focal hepatic mass or intrahepatic biliary duct dilatation is seen, however evaluation is markedly limited. Further evaluation with CT scan or MRI as clinically warranted. 3. Status postcholecystectomy.
== END 2022-07-31 08:50 | disposition home or self-care (01) ==
LOC: HO.US 08:49
PROVIDERS: PCP Internal Medicine Geriatric Medicine; Visit Provider Internal Medicine Geriatric Medicine
DX: R10.84 Generalized abdominal pain (principal)
CPT/HCPCS: 76700

== ENCOUNTER → 2022-11-02 14:00 | Outpatient (BNVA) | payer MEDICAID, SELFPAY | PROVIDERS: PCP Internal Medicine Geriatric Medicine; Visit Provider Internal Medicine Pulmonary Disease | DX: J44.9 Chronic obstructive pulmonary disease, unspecified (principal); G47.33 Obstructive sleep apnea (adult) (pediatric) | CPT/HCPCS: 99212 ==

== ENCOUNTER 2023-01-16 11:04 | Outpatient (AMB) | payer MEDICAID, SELFPAY ==
[2023-01-16 11:08] VITALS: BP 110/62; PULSE 94; O2SAT 97; BMI 38.7
--- NOTE | 2023-01-16 11:08 | MHC.OFFVIS ---
Intake Vital Signs 01/16/23 11:08 Height 5 ft 3 in Weight 218 lb 4.122 oz BMI 38.7 BP 110/62 Blood Pressure Location Lt brachial Position Sitting Pulse 94 Pulse Source Doppler Pulse Oximetry (%) 97 Oxygen Delivery Method Room Air Intake Visit Reasons: shortness of breath Allergies iodine Allergy (Severe, Verified 01/16/23 11:10) THROAT CLOSES ibuprofen Adverse Reaction (Intermediate, Verified 01/16/23 11:10) UPSET STOMACH HPI shortness of breath HPI Details 61-year-old lady, active 48 pack-year smoker, followed for underlying moderate asthma/COPD overlap syndrome and moderate SHANNAN.? She continues to use Breo, Incruse, and albuterol MDI with good baseline control of her underlying symptoms.? Patient continues to undergo cardiac workup with a possibility for surgical intervention her underlying coronary artery disease. Patient denies any recent exacerbations. [facility] Medical History Asthma Depression Diabetes Elevated cholesterol Fibromyalgia GERD (gastroesophageal reflux disease) Hepatitis HTN (hypertension) Neuropathy Sleep apnea Surgical History H/O colonoscopy History of esophagogastroduodenoscopy (EGD) Hx of excision of mass Hx of hernia repair S/P insertion of spinal cord stimulator Social History (Updated 01/16/23 @ 11:15 by Darlyn You Bhavin) Household Members: None Alcohol intake: current Alcohol intake frequency: does not drink Alcohol type: wine Patient Tobacco Use Status: Current everyday Tobacco user Cigarette Packs Per Day: 1 Cigarettes Per Day: 24 Years Smoked: 48 Substance Use Type: Marijuana Review of Systems Const Denies daytime sleepiness, Denies excessive sweating, Denies fatigue, Denies fever(s), Denies lethargy, Denies malaise, Denies night sweats, Denies snoring and Denies weight loss Eyes Denies blurry vision and Denies itchy eyes ENT Denies nasal congestion, Denies post nasal drip, Denies sinus pain, Denies sinus pressure and Denies other ( Thrush) Card Denies chest pain, Denies pedal edema, Denies dyspnea, Reports dyspnea on exertion, Denies orthopnea and Denies paroxysmal nocturnal dyspnea Resp Denies cough, Denies hemoptysis, Denies excessive phlegm production, Denies dyspnea, Reports dyspnea on exertion, Denies snoring and Denies wheezing GI Denies abdominal pain and Denies heartburn Musc Denies myalgias, Denies arthralgias and Denies joint swelling Skin/Breast Denies rash Neuro Denies memory loss and Denies seizure-like activity Psych Denies abnormal sleep pattern, Denies anxiety and Denies memory loss Endo Denies excessive sweating, Denies fatigue and Denies heat intolerance Ken/Lymph Denies easy bruising Aller/Immun Denies itchy eyes, Denies seasonal rhinorrhea and Denies wheezing Physical Exam Vital Signs: Last Vital Signs Pulse 94 01/16/23 11:08 BP 110/62 01/16/23 11:08 Pulse Ox 97 01/16/23 11:08 Oxygen Delivery Method Room Air 01/16/23 11:08 BMI result Body Mass Index 38.7 Const General: no acute distress and alert Nutritional Appearance: obese Orientation/consciousness: Other orientation findings ( oriented) HEENT Head: Yes atraumatic Eyes General: appearance normal, both eyes and all related structures Sclerae: sclerae normal EOM: EOMs intact bilaterally Neck Neck: Yes supple Lymphatic: no lymphadenopathy noted Resp Effort & Inspection: normal respiratory effort and no use of accessory muscles Auscultation: clear to auscultation bilaterally Cardio Rate: regular rate Rhythm: regular rhythm Heart sounds: no gallops, no murmurs and no rubs Skin General skin exam: other ( warm) Extrem General: No clubbing, No cyanosis and No edema Assessment & Plan Assessment & Plan (1) Asthma-COPD overlap syndrome: Code(s): J44.9 - Chronic obstructive pulmonary disease, unspecified Plan: At this time well controlled on current regimen Breo, Incruse, and albuterol MDI. Continue current regimen. (2) SHANNAN (obstructive sleep apnea): Code(s): G47.33 - Obstructive sleep apnea (adult) (pediatric) Plan: Well controlled on current CPAP therapy. Continue current CPAP therapy. (3) Dyspnea on exertion: Code(s): R06.09 - Other forms of dyspnea Plan: Multifactorial in etiology including contribution from underlying cardiac, pulmonary, and obesity/deconditioning etiologies. Pulmonary component is well controlled at this time. Will obtain PFT for further assessment. Patient continues to undergo cardiac workup or with possibility of surgical intervention for underlying coronary artery disease. Patient has been advised on diet/exercise for underlying obesity/deconditioning component. Orders: Orders PFT pulmonary function test Today R06.09 - Other forms of dyspnea Coding Level of Care Code Est Pt Level 4 (11180) Diagnoses Asthma-COPD overlap syndrome J44.9 SHANNAN (obstructive sleep apnea) G47.33 Dyspnea on exertion R06.09
== END 2023-01-16 11:32 | disposition home or self-care (01) ==
PROVIDERS: PCP Internal Medicine Geriatric Medicine; Visit Provider Internal Medicine Pulmonary Disease
DX: J44.9 Chronic obstructive pulmonary disease, unspecified (principal); G47.33 Obstructive sleep apnea (adult) (pediatric); R06.09 Other forms of dyspnea
CPT/HCPCS: 99214

== ENCOUNTER → 2023-01-16 11:04 | Outpatient (BNVA) | payer MEDICAID, SELFPAY | PROVIDERS: PCP Internal Medicine Geriatric Medicine; Visit Provider Internal Medicine Pulmonary Disease | DX: J44.9 Chronic obstructive pulmonary disease, unspecified (principal); G47.33 Obstructive sleep apnea (adult) (pediatric); R06.09 Other forms of dyspnea | CPT/HCPCS: 99212 ==

== ENCOUNTER 2023-02-04 11:21 | Outpatient (REF) | payer MEDICAID, SELFPAY ==
--- NOTE | 2023-02-04 12:13 | PFT_ITS ---
Forced vital capacity is 79%, FEV1 76%. FEV1/FVC ratio is 75. [id number] 55% and MVV 107%. Post bronchodilator therapy, there is a significant improvement in [id number] by 42%. Total lung capacity 81%. Residual volume 70%. Diffusion capacity 55%. CONCLUSION: There is evidence of mild obstructive airway disorder with some improvement after bronchodilator therapy. These findings may be consistent with mild bronchial asthma. Clinical correlation is recommended. Hafsa Sinclair MD MSB/MODL / [phone]
== END 2023-02-04 11:22 | disposition home or self-care (01) ==
LOC: HO.RESP 11:21
PROVIDERS: PCP Internal Medicine Geriatric Medicine; Visit Provider Internal Medicine Pulmonary Disease
DX: R06.09 Other forms of dyspnea (principal)
CPT/HCPCS: 94010; 94727; 94729

== ENCOUNTER → 2023-02-04 12:13 | Outpatient (BNV) | payer MEDICAID, SELFPAY | PROVIDERS: PCP Internal Medicine Geriatric Medicine; Visit Provider Internal Medicine | DX: R06.09 Other forms of dyspnea (principal) | CPT/HCPCS: 94060; 94727; 94729 ==

== ENCOUNTER 2023-02-27 09:50 | Outpatient (AMB) | payer MEDICAID, SELFPAY ==
--- NOTE | 2023-02-27 10:04 | MHC.OFFVIS ---
Intake Vital Signs 02/27/23 10:11 Height 5 ft 3 in Weight 219 lb BMI 38.8 BP 132/55 L Blood Pressure Location Lt brachial Position Sitting Pulse 86 Intake Visit Reasons: Breakthrough GERD Intake Note: Dr. Ruiz former patient last appt was 2020 for GERD. Patient cc: acid reflex with burning sensation, abdominal pain, constipation and some swallowing even with saliva. Wreath Machine Operator Required: Yes Accompanied by: Spouse Allergies iodine Allergy (Severe, Verified 02/27/23 10:03) THROAT CLOSES ibuprofen Adverse Reaction (Intermediate, Verified 02/27/23 10:03) UPSET STOMACH Medication List - Last Reconciled 02/27/23 by RANCHO QuirosC albuterol sulfate 90 mcg/actuation (ProAir HFA) 2 puffs inhalation Q4-6H PRN atorvastatin 20 mg PO BEDTIME bupropion HCl (Wellbutrin XL) 150 mg PO QAM clonazepam 0.5 mg PO BEDTIME docusate sodium (Colace) 100 mg PO DAILY duloxetine 30 mg PO DAILY fluticasone furoate 27.5 mcg/actuation 1 spray intranasal DAILY fluticasone furoate-vilanterol 200-25 mcg/dose (Breo Ellipta) 1 ea inhalation DAILY gabapentin 800 mg PO DAILY insulin detemir U-100 (Levemir U-100 Insulin) subcut lactulose 10 grams PO BEDTIME lisinopril 20 mg PO DAILY loratadine 10 mg PO DAILY meloxicam 15 mg PO DAILY metformin 500 mg PO BID pantoprazole 40 mg PO BID 90 days prednisone 40 mg (2 x 20 mg) PO DAILY 5 days trazodone 100 mg PO BEDTIME umeclidinium 62.5 mcg/actuation (Incruse Ellipta) 1 inh inhalation DAILY HPI HPI Comments History of Present Illness Details A 62 y/o female with hx gastritis-established with Dr. Ruiz- last encounter 2020 My stomach comes up and into my nose sometimes at night - eats diana meal@ 5:30- ppi bid Eats 2 large meals a day-a.m. and p.m. [facility] Medical History (Updated 02/27/23 @ 13:55 by Deneen Hi PA-C) Diabetes Hepatitis GERD (gastroesophageal reflux disease) Neuropathy Fibromyalgia Depression Sleep apnea Asthma Elevated cholesterol HTN (hypertension) Surgical History History of esophagogastroduodenoscopy (EGD) H/O colonoscopy S/P insertion of spinal cord stimulator Hx of excision of mass Hx of hernia repair Social History Household Members: None Alcohol intake: current Alcohol intake frequency: does not drink Alcohol type: wine Patient Tobacco Use Status: Current everyday Tobacco user Cigarette Packs Per Day: 1 Cigarettes Per Day: 24 Years Smoked: 48 Substance Use Type: Marijuana Physical Exam Vital Signs: Last Vital Signs Pulse 86 02/27/23 10:11 BP 132/55 L 02/27/23 10:11 BMI result Body Mass Index 38.8 Const General: cooperative, comfortable and no acute distress Nutritional Appearance: overweight Orientation/consciousness: patient oriented x3 Limitations: language barrier and ambulation with cane Eyes Eyelids: Yes lid lag Conjunctivae: conjunctival abnormal (Conjunctiva injected bilateral no drainage) Resp Effort & Inspection: normal respiratory effort and able to speak in complete sentences Auscultation: clear to auscultation bilaterally, no rales, no rhonchi and no wheezes Cardio Rate: regular rate Rhythm: regular rhythm Heart sounds: Murmur heart sound present GI Palpation (GI): Soft to palpation and nontender Auscultation: normal bowel sounds Skin General skin exam: no rashes or lesions noted Neuro General: patient oriented x3 Psych Speech and movement: Normal speech and movement present Affect: Labile affect present Attitude: cooperative Thought process: Normal thought process present Thought content: Normal thought content present Results Reviewed Results Reviewed: ndoscopy Findings: gastritis Colonoscopy Findings: internal hemorrhoids Plan: Await Pathology results Repeat Colonoscopy in 5 years or earlier if clinically indicated High fiber diet leaflet avoid straining at stool, epsom salts and sitz bath, anusol supps or cream as needed Above findings were reviewed with the patient and relevant handouts were provided if indicated. B: 1960 Submitted by: Evelyn Ruiz MD Collected: 04/12/20 MR #: [id number] Received: 04/12/20 Status: [facility] Location: [facility] Diagnosis A. Duodenum, biopsy: Duodenal mucosa within normal limits. B. Stomach, biopsy: Antral-type and oxyntic mucosa with mild chronic inactive inflammation; no Helicobacter organisms seen. Clinical History Pre-Op Dx: Epigastric pain and screening Post-Op Dx: Gastritis Microscopic Description A,B. Microscopic sections reviewed. Immunostain for H. pylori is non-reactive (B). Material Received A. Duodenal bx's B. Stomach bx's Gross Description Received in two parts. Part A: Received in formalin labeled Duodenal bx's are three glistening, semitranslucent, soft, hyperemic and congested, adams and adams-pink, irregular tissue fragments, ranging from 0.2 to 0.3 cm. in greatest dimension, which are submitted in toto in a single cassette labeled A. Part B: Received in formalin labeled Stomach bx's are three glistening, semitranslucent, soft, hyperemic and congested, adams and adams-pink, irregular tissue fragments, ranging from 0.2 to 0.3 cm. in greatest dimension, which are submitted in toto in a single cassette labeled B. KL Special studies ordered and performed: immunostain for H. pylori on B NOTE: Some or all of the immunohistochemical tests reported herein may have been developed and their performance characteristics determined by [facility]. They have not been cleared or approved by the U.S. Food and Drug Administration (FDA). However, the FDA has determined that such clearance or approval is not necessary. This laboratory is certified under the Clinical Laboratory Improvement Amendments of 1988 (CLIA) as qualified to perform high complexity clinical laboratory testing. Electronically Signed By: Prashanth Ayers MD 04/13/20 1500 Patient: Louisa Levin Age/Sex: 59/F MR#: [id number] Page 1 of 1 Assessment & Plan Assessment & Plan (1) Epigastric abdominal pain: Comment: Vague, Not a great historian Reconcile medications list uncertain for correct Bring updated medication list next appointment Code(s): R10.13 - Epigastric pain Plan: Labs (2) Early satiety: Comment: DM, narcs- likely play a role Code(s): R68.81 - Early satiety Plan: GES Update labs Small portions at a time remain upright 2-3 hours after eating specially evening meal Continue PPI -qa.m. / HS (3) GERD (gastroesophageal reflux disease): Comment: Continue ppi- take 2nd dose @ hs Code(s): K21.9 - Gastro-esophageal reflux disease without esophagitis Plan: Continue PPI -qa.m. / HS (4) Diabetes: Comment: IDDM Code(s): E11.9 - Type 2 diabetes mellitus without complications Plan: Good glucose control Plan Gastric emptying study Orders: Orders Comprehensive Met. Panel Today R10.13 - Epigastric pain, R68.81 - Early satiety Thyroid Stimulating Hormone Today E11.9 - Type 2 diabetes mellitus without complications, R10.13 - Epigastric pain, R68.81 - Early satiety NM gastric emptying study Today E11.9 - Type 2 diabetes mellitus without complications, K21.9 - Gastro-esophageal reflux disease without esophagitis, R10.13 - Epigastric pain, R68.81 - Early satiety Complete Blood Count Auto Diff Today K21.9 - Gastro-esophageal reflux disease without esophagitis, R10.13 - Epigastric pain Hemoglobin A1c Today E11.9 - Type 2 diabetes mellitus without complications, R68.81 - Early satiety Patient Instructions: GES Update labs Small portions at a time remain upright 2-3 hours after eating specially evening meal Continue PPI -qa.m. / HS Bring updated medication list at next appointment Coding Level of Care Code Est Pt Level 4 (84559) Diagnoses Epigastric abdominal pain R10.13 Early satiety R68.81 GERD (gastroesophageal reflux disease) K21.9 Diabetes E11.9 Time Spent (min) 35 Comment [id number]
[2023-02-27 10:11] VITALS: BP 132/55; PULSE 86; BMI 38.8
== END 2023-02-27 11:20 | disposition home or self-care (01) ==
PROVIDERS: PCP Internal Medicine Geriatric Medicine; Visit Provider Physician Assistant
DX: R10.13 Epigastric pain (principal); R68.81 Early satiety; K21.9 Gastro-esophageal reflux disease without esophagitis; E11.9 Type 2 diabetes mellitus without complications
CPT/HCPCS: 99214

== ENCOUNTER → 2023-02-27 09:50 | Outpatient (BNVA) | payer MEDICAID, SELFPAY | PROVIDERS: PCP Internal Medicine Geriatric Medicine; Visit Provider Physician Assistant | DX: R10.13 Epigastric pain (principal); K21.9 Gastro-esophageal reflux disease without esophagitis; R68.81 Early satiety; E11.9 Type 2 diabetes mellitus without complications | CPT/HCPCS: 99212 ==

== ENCOUNTER → 2023-03-26 09:23 | Outpatient (REF) | payer MEDICAID, SELFPAY ==
--- NOTE | ~2023-03-26 | NM_ITS ---
EXAMINATION: CO RADIONUCLIDE SOLID FOOD GASTRIC EMPTYING 4-HOUR STUDY CLINICAL INFORMATION: Epigastric pain. COMPARISON: None available. TECHNIQUE: A standard meal consisting of 4 oz of Egg Beaters brand tagged with 1000 microcuries Tc-99m Sulfur Colloid, 8 oz water and 2 slices of toast with jelly was administered orally to the patient. Images were obtained using a dual head gamma camera in the anterior and posterior projections over of the stomach immediately post ingestion and at hourly intervals up to 4 hours post ingestion. The anterior and posterior counts at each time interval were averaged using the geometric mean and expressed as percentage of the immediate post ingestion counts. FINDINGS: There is good visualization of activity in the stomach immediately post ingestion. As the study progresses, there is good clearance of activity from the stomach and visualization of progressively increasing small bowel activity. By the end of the study, there is almost no retention noted in the stomach. Retention in the stomach at each time interval was: 1 hour 81% (normal 37%-90%) 2 hours 39% (normal 30%-60%) 3 hours 6% 4 hours 2% (normal 0%-10%) CO/CO gastric emptying study IMPRESSION: Normal 4-hour solid food gastric emptying study. (For solid meal, rapid gastric emptying is less than 30% at 60 minutes. Delayed gastric emptying criteria is more than 60% remaining at 120 minutes or more than 10% at 240 minutes. The 4-hour value is the best discriminator of a normal or abnormal result). Gastric emptying study grading per JNMT Consensus Recommendations in 2008 (https://tech.snmjournals.org/content/36/44) Grade 1 (mild retention): 11-20% at 4h Grade 2 (moderate retention): 21-35% at 4h Grade 3 (severe retention): 36-50% at 4h Grade 4 (very severe retention): >50% retention at 4h
== END ==
LOC: HO.NUCMED 09:23
PROVIDERS: PCP Internal Medicine Geriatric Medicine; Visit Provider Physician Assistant
DX: R10.13 Epigastric pain (principal); R68.81 Early satiety; K21.9 Gastro-esophageal reflux disease without esophagitis; E11.9 Type 2 diabetes mellitus without complications
CPT/HCPCS: 78264; A9541

== ENCOUNTER 2023-07-05 13:06 | Outpatient (AMB) | payer MEDICAID, SELFPAY ==
--- NOTE | 2023-07-05 13:08 | A.OFFVIS_ITS ---
Intake Vital Signs 07/05/23 13:10 Height 5 ft 3 in Weight 219 lb 5.759 oz BMI 38.9 BP 128/84 Pulse 87 Pulse Source Doppler Pulse Oximetry (%) 99 Oxygen Delivery Method Room Air Intake Visit Reasons: shortness of breath Prom Burn Off Operator Required: Yes Prom Burn Off Operator Name: Darlyn Edward Allergies iodine Allergy (Severe, Verified 07/05/23 13:16) THROAT CLOSES ibuprofen Adverse Reaction (Intermediate, Verified 07/05/23 13:16) UPSET STOMACH HPI shortness of breath HPI Details 62-year-old lady, active 48 pack-year sm marlo, followed for underlying moderate asthma/COPD overlap syndrome and moderate SHANNAN.? She continues to use Breo, Incruse, and albuterol MDI with good baseline control of her underlying symptoms.? Patient still continues to undergo cardiac workup with a possibility for surgical intervention her underlying coronary artery disease. Patient denies any recent exacerbations. [facility] Medical History (Updated 02/27/23 @ 13:55 by Deneen Hi PA-C) Diabetes Hepatitis GERD (gastroesophageal reflux disease) Neuropathy Fibromyalgia Depression Sleep apnea Asthma Elevated cholesterol HTN (hypertension) Surgical History History of esophagogastroduodenoscopy (EGD) H/O colonoscopy S/P insertion of spinal cord stimulator Hx of excision of mass Hx of hernia repair Social History Household Members: None Alcohol intake: current Alcohol intake frequency: does not drink Alcohol type: wine Patient Tobacco Use Status: Current everyday Tobacco user Cigarette Packs Per Day: 1 Cigarettes Per Day: 24 Years Smoked: 48 Substance Use Type: Marijuana Review of Systems Const Denies daytime sleepiness, Denies excessive sweating, Denies fatigue, Denies fever(s), Denies lethargy, Denies malaise, Denies night sweats, Denies snoring and Denies weight loss Eyes Denies blurry vision and Denies itchy eyes ENT Denies nasal congestion, Denies post nasal drip, Denies sinus pain, Denies sinus pressure and Denies other ( Thrush) Card Denies chest pain, Denies pedal edema, Denies dyspnea, Denies orthopnea and Denies paroxysmal nocturnal dyspnea Resp Denies cough, Denies hemoptysis, Denies excessive phlegm production, Denies dyspnea, Denies snoring and Denies wheezing GI Denies abdominal pain and Denies heartburn Musc Denies myalgias, Denies arthralgias and Denies joint swelling Skin/Breast Denies rash Neuro Denies memory loss and Denies seizure-like activity Psych Denies abnormal sleep pattern, Denies anxiety and Denies memory loss Endo Denies excessive sweating, Denies fatigue and Denies heat intolerance Ken/Lymph Denies easy bruising Aller/Immun Denies itchy eyes, Denies seasonal rhinorrhea and Denies wheezing Physical Exam Vital Signs: Last Vital Signs Pulse 87 07/05/23 13:10 BP 128/84 07/05/23 13:10 Pulse Ox 99 07/05/23 13:10 Oxygen Delivery Method Room Air 07/05/23 13:10 BMI result Body Mass Index 38.9 Const General: no acute distress and alert Nutritional Appearance: obese Orientation/consciousness: Other orientation findings ( oriented) HEENT Head: Yes atraumatic Eyes General: appearance normal, both eyes and all related structures Sclerae: sclerae normal EOM: EOMs intact bilaterally Neck Neck: Yes supple Lymphatic: no lymphadenopathy noted Resp Effort & Inspection: normal respiratory effort and no use of accessory muscles Auscultation: clear to auscultation bilaterally Cardio Rate: regular rate Rhythm: regular rhythm Heart sounds: no gallops, no murmurs and no rubs Skin General skin exam: other ( warm) Extrem General: No clubbing, No cyanosis and No edema Assessment & Plan Assessment & Plan (1) COPD (chronic obstructive pulmonary disease): Code(s): J44.9 - Chronic obstructive pulmonary disease, unspecified Plan: Well controlled on current regimen of Breo, Incruse, and albuterol MDI. Continue current regimen. (2) SHANNAN (obstructive sleep apnea): Code(s): G47.33 - Obstructive sleep apnea (adult) (pediatric) Plan: Well controlled on current CPAP therapy. Continue CPAP therapy. Coding Level of Care Code Est Pt Level 4 (95796) Diagnoses COPD (chronic obstructive pulmonary disease) J44.9 SHANNAN (obstructive sleep apnea) G47.33
[2023-07-05 13:10] VITALS: BP 128/84; PULSE 87; O2SAT 99; BMI 38.9
== END 2023-07-05 13:36 | disposition home or self-care (01) ==
PROVIDERS: PCP Internal Medicine Geriatric Medicine; Visit Provider Internal Medicine Pulmonary Disease
DX: J44.9 Chronic obstructive pulmonary disease, unspecified (principal); G47.33 Obstructive sleep apnea (adult) (pediatric)
CPT/HCPCS: 99214

== ENCOUNTER → 2023-07-05 13:06 | Outpatient (BNVA) | payer MEDICAID, SELFPAY | PROVIDERS: PCP Internal Medicine Geriatric Medicine; Visit Provider Internal Medicine Pulmonary Disease | DX: J44.9 Chronic obstructive pulmonary disease, unspecified (principal); G47.33 Obstructive sleep apnea (adult) (pediatric) | CPT/HCPCS: 99212 ==

== ENCOUNTER 2023-10-16 09:41 | Outpatient (REF) | payer MEDICAID, SELFPAY ==
[2023-10-16 15:05] LABS: MANUAL DIFF FLAG NO
[2023-10-16 15:09] LABS: Basophils Absolute Auto 0.1 X10*3/uL (0.0-0.2); Basophils Percent Auto 0.7 % (0-2); Eosinophils Absolute Auto 0.1 X10*3/uL (0.0-0.4); Eosinophils Percent Auto 1.3 % (0-4); Hematocrit 35.2 % (37.0-47.0); Hemoglobin 10.9 g/dl (12.0-16.0); Imm Gran Abs Auto 0.02 X10*3/uL (0.00-0.03); Imm Gran Pct Auto 0.3 % (0.0-0.4); Lymphocytes Absolute Auto 1.9 X10*3/uL (1.2-4.9); Lymphocytes Percent Auto 25.9 % (20-40); Mean Corpuscular Hemoglobin 26.5 pg (27.0-33.0); Mean Corpuscular Volume 85.6 fL (80.0-98.0); Mean Platelet Volume 11.2 fL (9.4-12.3); Monocytes Absolute Auto 0.6 X10*3/uL (0.1-1.2); Neutrophils Absolute Auto 4.6 x10*3/uL (2.0-8.3); Neutrophils Percent Auto 63.8 % (45-73); Platelet Count 209 X10*3/uL (160-400); Red Blood Count 4.11 X10*6/uL (4.20-5.50); Red Cell Distribution Width 15.7 % (11.0-16.0); White Blood Count 7.1 X10*3/uL (4.8-10.8)
[2023-10-16 15:35] LABS: Alanine Aminotransferase 16 U/L (0-31); Albumin Level 4.5 g/dL (3.5-5.0); Alkaline Phosphatase 72 U/L (39-117); Anion Gap 16 (12-20); Aspartate Amino Transferase 19 U/L (5-31); Bilirubin Total 0.3 mg/dL (0.0-1.0); Blood Urea Nitrogen 21 mg/dL (9-16); Calcium 10.2 mg/dL (8.4-10.2); Carbon Dioxide 23 mmol/L (22-29); Chloride 107 mmol/L (96-108); Cholesterol 163 mg/dL (<200); Estimated Glomerular Filt Rate 44; Glucose Fasting 117 mg/dL (60-99); HDL Cholesterol 38 mg/dL (>40); LDL Cholesterol Calculated 81 mg/dL (<100); Potassium 4.5 mmol/L (3.3-5.1); Sodium 141 mmol/L (135-145); Triglycerides 220 mg/dL (<150)
[2023-10-16 15:40] LABS: Creatinine Urine 246.69 mg/dL; Microalbum/Creatinine Ratio Ur 15.8 ug/mg cr (<30)
== END 2023-10-16 09:42 | disposition home or self-care (01) ==
LOC: HO.CHCLDS 09:41
PROVIDERS: Visit Provider Internal Medicine Geriatric Medicine
DX: I35.0 Nonrheumatic aortic (valve) stenosis (principal); E11.42 Type 2 diabetes mellitus with diabetic polyneuropathy; J42 Unspecified chronic bronchitis; E78.00 Pure hypercholesterolemia, unspecified; G89.4 Chronic pain syndrome; J32.9 Chronic sinusitis, unspecified; J45.909 Unspecified asthma, uncomplicated
CPT/HCPCS: 36415; 80053; 80061; 82043; 82570; 85025

== ENCOUNTER 2023-10-23 10:11 | Outpatient (AMB) | payer MEDICAID, SELFPAY ==
[2023-10-23 10:15] VITALS: BP 118/58; PULSE 98; O2SAT 99; BMI 35.4
--- NOTE | 2023-10-23 10:15 | A.OFFVIS_ITS ---
Vital Signs 10/23/23 10:15 Height 5 ft 3 in Weight 200 lb BMI 35.4 BP 118/58 L Blood Pressure Location Lt brachial Position Sitting Pulse 98 Pulse Source Doppler Pulse Oximetry (%) 99 Oxygen Delivery Method Room Air Intake Visit Reasons: shannan Home Health Clinical Liaison Required: Yes Home Health Clinical Liaison Name: Darlyn Joe Edward Allergies iodine Allergy (Severe, Verified 10/23/23 10:19) THROAT CLOSES ibuprofen Adverse Reaction (Intermediate, Verified 10/23/23 10:19) UPSET STOMACH HPI HPI shannan: Details: 62-year-old lady, active 48 pack-year smoker, followed for underlying moderate asthma/COPD overlap syndrome and moderate SHANNAN.? She continues to use Breo, Incruse, and albuterol MDI with good baseline control of her underlying symptoms.? Patient still continues to undergo cardiac workup with a possibility for surgical or percutaneous intervention her underlying coronary artery disease. Patient denies any recent exacerbations. patient was tried on Chantix by PCP, however she developed an allergic reaction. [facility] Medical History (Updated 10/23/23 @ 10:42 by Jed Story MD) Diabetes Hepatitis GERD (gastroesophageal reflux disease) Neuropathy Fibromyalgia Depression Sleep apnea Asthma Elevated cholesterol HTN (hypertension) Surgical History History of esophagogastroduodenoscopy (EGD) H/O colonoscopy S/P insertion of spinal cord stimulator Hx of excision of mass Hx of hernia repair Social History Household Members: None Alcohol intake: current Alcohol intake frequency: does not drink Alcohol type: wine Patient Tobacco Use Status: Current everyday Tobacco user Cigarette Packs Per Day: 1 Cigarettes Per Day: 24 Years Smoked: 48 Substance Use Type: Marijuana Review of Systems Const Denies daytime sleepiness, Denies excessive sweating, Denies fatigue, Denies fever(s), Denies lethargy, Denies malaise, Denies night sweats, Denies snoring and Denies weight loss Eyes Denies blurry vision and Denies itchy eyes ENT Denies nasal congestion, Denies post nasal drip, Denies sinus pain, Denies sinus pressure and Denies other ( Thrush) Card Denies chest pain, Denies pedal edema, Denies dyspnea, Denies orthopnea and Denies paroxysmal nocturnal dyspnea Resp Denies cough, Denies hemoptysis, Denies excessive phlegm production, Denies dyspnea, Denies snoring and Denies wheezing GI Denies abdominal pain and Denies heartburn Musc Denies myalgias, Denies arthralgias and Denies joint swelling Skin/Breast Denies rash Neuro Denies memory loss and Denies seizure-like activity Psych Denies abnormal sleep pattern, Denies anxiety and Denies memory loss Endo Denies excessive sweating, Denies fatigue and Denies heat intolerance Ken/Lymph Denies easy bruising Aller/Immun Denies itchy eyes, Denies seasonal rhinorrhea and Denies wheezing Physical Exam Vital Signs: Last Vital Signs Pulse 98 10/23/23 10:15 BP 118/58 L 10/23/23 10:15 Pulse Ox 99 10/23/23 10:15 Oxygen Delivery Method Room Air 10/23/23 10:15 BMI result Body Mass Index 35.4 Const General: no acute distress and alert Nutritional Appearance: obese Orientation/consciousness: Other orientation findings ( oriented) HEENT Head: Yes atraumatic Eyes General: appearance normal, both eyes and all related structures Sclerae: sclerae normal EOM: EOMs intact bilaterally Neck Neck: Yes supple Lymphatic: no lymphadenopathy noted Resp Effort & Inspection: normal respiratory effort and no use of accessory muscles Auscultation: clear to auscultation bilaterally Cardio Rate: regular rate Rhythm: regular rhythm Heart sounds: no gallops, no murmurs and no rubs Skin General skin exam: other ( warm) Extrem General: No clubbing, No cyanosis and No edema Assessment & Plan Assessment & Plan (1) Asthma-COPD overlap syndrome: Code(s): J44.9 - Chronic obstructive pulmonary disease, unspecified Category: Medical Plan: Well controlled on current regimen of Incruse, Breo, and albuterol MDI. Continue current regimen. (2) Personal history of nicotine dependence: Code(s): Z87.891 - Personal history of nicotine dependence Category: Medical Plan: Will obtain CT chest for screening for lung cancer. Orders: Orders CT lung screening Today Z87.891 - Personal history of nicotine dependence Medications: Refilled prednisone 40 mg (2 x 20 mg) PO DAILY 5 days 10 tabs 0RF Coding Level of Care Code Est Pt Level 4 (78040) Diagnoses Asthma-COPD overlap syndrome J44.9 Personal history of nicotine dependence Z87.205
== END 2023-10-23 10:39 | disposition home or self-care (01) ==
PROVIDERS: PCP Internal Medicine Geriatric Medicine; Referring Provider Internal Medicine Geriatric Medicine; Visit Provider Internal Medicine Pulmonary Disease
DX: J44.9 Chronic obstructive pulmonary disease, unspecified (principal); Z87.891 Personal history of nicotine dependence
CPT/HCPCS: 99214

== ENCOUNTER → 2023-10-23 10:11 | Outpatient (BNVA) | payer MEDICAID, SELFPAY | PROVIDERS: PCP Internal Medicine Geriatric Medicine; Visit Provider Internal Medicine Pulmonary Disease | DX: J44.9 Chronic obstructive pulmonary disease, unspecified (principal); G47.33 Obstructive sleep apnea (adult) (pediatric); Z87.891 Personal history of nicotine dependence | CPT/HCPCS: 99212 ==

== ENCOUNTER 2023-12-21 18:51 | Inpatient (IN) | payer MEDICAID, SELFPAY ==
[2023-12-21] VITALS (10 sets, daily range): BP systolic 129–178; BP diastolic 60–87; PULSE 112–133; RESP 19–30; TEMP 39.6–40; O2SAT 95–98; BMI 34.1
--- NOTE | 2023-12-21 | ECG_ITS ---
Test Reason : ams Blood Pressure : / mmHG Vent. Rate : 112 BPM Atrial Rate : 112 BPM P-R Int : 150 ms QRS Dur : 062 ms QT Int : 302 ms P-R-T Axes : 067 032 059 degrees QTc Int : 412 ms Sinus tachycardia Otherwise normal ECG When compared with ECG of 03-NOV-2020 15:33, Nonspecific T wave abnormality now evident in Inferior leads Referred By: Generic ED Physician Electronically Signed By:PAYTON HARTLEY MD
--- NOTE | ~2023-12-21 | XR_ITS ---
EXAMINATION: XR lumbar spine 2-3V CLINICAL INFORMATION: Reason for Exam location of spinal stimulator wires COMPARISON: None TECHNIQUE: 3 views of the lumbar spine FINDINGS: 5 nonrib-bearing lumbar-type vertebral bodies. Spinal stimulator leads are seen extending superiorly beyond the superior endplate of T10 vertebral body and out of field of view. Vertebral body heights are maintained. Alignment is maintained. Disc space narrowing and osteophytosis at L5/S1 Cholecystectomy clips are noted. XR/XR lumbar spine 2-3V IMPRESSION: * Spinal stimulator leads are seen extending superiorly beyond the superior endplate of T10 vertebral body and out of field of view. * Mild spondylosis of the lumbar spine.
--- NOTE | ~2023-12-21 | CT_ITS ---
EXAMINATION: CT HEAD WITHOUT CONTRAST CLINICAL INFORMATION: Fever. Altered mental status. COMPARISON: CT head dated 10/14/2020. TECHNIQUE: Contiguous axial imaging was performed from the skull base to vertex without intravenous administration of contrast. This CT examination was performed using dose optimization techniques as appropriate, variously including the following: *Automated exposure control *Adjustment of mA and/or kV according to patient size (this includes techniques or standardized protocols for targeted exams where dose is matched to indication/reason for exam; i.e. extremities or head) *Use of iterative reconstruction technique DLP: 909 mGy-cm FINDINGS: There is no acute intracranial hemorrhage. There is no evidence of acute/subacute cerebral or cerebellar infarction. There is no mass effect or midline shift. No extra-axial fluid collection. The ventricles are normal in size. The ocular lenses are surgically absent. The mastoid air cells are clear. The paranasal sinuses are well aerated. CT/CT head/brain wo IV con IMPRESSION: No acute intracranial pathology.
--- NOTE | ~2023-12-21 | XR_ITS ---
EXAMINATION: XR CHEST CLINICAL INFORMATION: Fever. COMPARISON: Chest radiograph dated 11/03/2020. TECHNIQUE: Frontal view of the chest was obtained. FINDINGS: The cardiac silhouette is normal in size. There is no consolidation within either lung. No large pleural effusion. No pneumothorax. No acute osseous abnormality. There are spinal stimulator leads overlying the mid thoracic spine. XR/XR chest 1V IMPRESSION: No acute cardiopulmonary disease.
--- NOTE | ~2023-12-21 | CT_ITS ---
EXAMINATION: CT EXTREMITY WITHOUT CONTRAST, LEFT LOWER CLINICAL INFORMATION: Query abscess. COMPARISON: Radiograph dated 02/20/2024. TECHNIQUE: Multidetector volumetric imaging was obtained through the left lower leg without intravenous contrast. Multiplanar reformatted images in coronal and sagittal orientations were submitted. This CT examination was performed using dose optimization techniques as appropriate, variously including the following: *Automated exposure control. *Adjustment of mA and/or kV according to patient size (this includes techniques or standardized protocols for targeted exams where dose is matched to indication/reason for exam; i.e. extremities or head). *Use of iterative reconstruction technique. DLP: 278 mGy-cm FINDINGS: There is diffuse soft tissue swelling in the lower leg from the knee to the hindfoot with associated generalized subcutaneous edema. No discrete fluid collections are identified. Specifically, no appreciable abscess on this unenhanced study. The prosthetic components of the left total knee arthroplasty appear appropriately aligned without periprosthetic fracture. No effusion. Mildly comminuted oblique fracture is present at the proximal fibular diaphysis with callus formation. No appreciable osseous bridging. There is a long medial plate and screw fixation construct extending from the proximal tibial diaphysis through the medial malleolus, crossing the comminuted fracture of the mid tibial diaphysis. Alignment appears anatomic. Multiple additional screws cross this fracture line. At the tibial plafond, there is a comminuted intra-articular component of the fracture with multiple separate AP fixation screws crossing the subarticular region. There is a nondisplaced transverse fracture of the distal fibular metadiaphysis with callus formation. No appreciable CT findings of osteomyelitis. CT/CT lower leg LT wo IV con IMPRESSION: 1. Diffuse soft tissue swelling and subcutaneous edema in the left lower leg. No discrete fluid collections are identified. Specifically, no appreciable abscess. 2. Healing fractures of the proximal and distal fibular diaphyses as well as the tibial shaft and tibial plafond status post ORIF.
--- NOTE | ~2023-12-21 | FL_ITS ---
FLUOROSCOPIC GUIDED LUMBAR PUNCTURE INDICATION: Concern for meningitis TECHNIQUE: Risks and benefits and possible complications were discussed with the patient's spouse and the consent was signed. Patient was placed prone on the fluoroscopy table. The back was prepped and draped in routine sterile fashion. Betadine was used as a skin antiseptic. Utilizing fluoroscopic guidance, the L2-3 interlaminar space was accessed with a 22 gauge Oscar spinal needle and clear CSF fluid obtained. Opening pressure was unable to be recorded due to the patient's agitation. 9 cc of fluid was sent for analysis. The needle was removed without immediate complications. Total fluoroscopy time: 1 min FL/FL guided lumbar puncture LP IMPRESSION: Successful fluoroscopic guided lumbar puncture This procedure was performed by Frederick Padilla PA-C and supervised by Dr. Pike.
--- NOTE | ~2023-12-21 | XR_ITS ---
EXAMINATION: XR CHEST CLINICAL INFORMATION: Fever. Evaluate for aspiration. COMPARISON: Chest radiograph dated 12/21/2023. TECHNIQUE: Frontal view of the chest was obtained. FINDINGS: Hypoinflation of the lungs. No airspace consolidation. No pleural effusion or pneumothorax. Stable cardiomediastinal silhouette. XR/XR chest 1V IMPRESSION: Hypoinflation of the lungs without airspace consolidation.
--- NOTE | ~2023-12-21 | XR_ITS ---
EXAMINATION: XR TIBIA AND FIBULA, LEFT CLINICAL INFORMATION: Orogastric, rule out osteomyelitis COMPARISON: None available. TECHNIQUE: AP and lateral views of the left tibia and fibula were obtained. FINDINGS: Total knee arthroplasty partially visualized. Proximal fibular obliquely oriented fracture with surrounding callus formation. Tibial ORIF affixes a mid tibial comminuted fracture in satisfactory alignment without evidence of hardware complication. Obliquely oriented distal fibular fracture. No periosteal reaction, cortical erosion, focal osteopenia to suggest osteomyelitis. Posterior soft tissue swelling. XR/XR tibia fibula LT 2V IMPRESSION: * No periosteal reaction, cortical erosion, focal osteopenia to suggest osteomyelitis. * Proximal fibular and distal fibular fractures. * Tibial ORIF without evidence of hardware complication. * Posterior soft tissue swelling.
[2023-12-21 19:45] LABS: MANUAL DIFF FLAG NO
[2023-12-21 19:46] LABS: Basophils Percent Auto 0.4 % (0-2); Eosinophils Percent Auto 0.4 % (0-4); Hematocrit 30.7 % (37.0-47.0); Hemoglobin 9.5 g/dl (12.0-16.0); Imm Gran Abs Auto 0.03 X10*3/uL (0.00-0.03); Imm Gran Pct Auto 0.4 % (0.0-0.4); Lymphocytes Absolute Auto 0.9 X10*3/uL (1.2-4.9); Mean Corpuscular HGB Conc 30.9 g/dl (31.0-35.0); Mean Corpuscular Volume 87.2 fL (80.0-98.0); Mean Platelet Volume 10.7 fL (9.4-12.3); Monocytes Absolute Auto 0.4 X10*3/uL (0.1-1.2); Monocytes Percent Auto 4.6 % (2-11); Neutrophils Absolute Auto 6.7 x10*3/uL (2.0-8.3); Neutrophils Percent Auto 83.2 % (45-73); Platelet Count 168 X10*3/uL (160-400); Red Blood Count 3.52 X10*6/uL (4.20-5.50); Red Cell Distribution Width 14.1 % (11.0-16.0); White Blood Count 8.1 X10*3/uL (4.8-10.8)
--- NOTE | 2023-12-21 19:46 | MHC.EDTECH ---
Patient BIBA,changed into hospital attire, sr. media managerthelma Botello placed patient on the hospital monitor ,vitals taken rectal temp of 104.4,RN aware at bedside.This tech placed a continues rectal at this time,cultures and labs obtained and sent to lab, EKG was taken by sr. media managerthelma Botello, patient is confused at this time and not redirectable at bedside at this time.
[2023-12-21 19:57] LABS: INTERNATIONAL NORM RATIO 1.1 (0.9-1.1); Prothrombin Time 13.5 SEC (11.1-13.3)
--- NOTE | 2023-12-21 19:57 | PC.NURSE ---
Dr. Barcenas came to bedside for provider evaluation. While removing the orthoboot from her left lower extremity, pt became increasingly agitated and combative, and grabbed the boot from this RN and yelled at the doctor stating: No! Don't touch that! It's mine! Go to hell doctor! (in Tuval[place], translated by this RN). Patient's daughter, 'Melissa' is present at bedside. States that her mother had a similar episode about 2 weeks ago at [place]. Denies any diagnosed known history of dementia/Alzheimer's. Melissa reports worsening altered mental status while at [facility]. Pt is a patient at [facility] for left tibial fracture after a fall on November 08. While changing into hospital attire, found to have a single tablet (unknown medication) under right breast, and a container of glucometer strips under her left breast. Pt is mumbling/talking, responding to auditory & visual hallucinations. Was screaming about her (who is not ), and holding a bundled up blanket stating that it is a baby boy. Increased urinary frequency and intermittent incontinence. IV access established in left wrist by EDWARD Jiang. 2 initial IV attempts unsuccessful by this RN in right forearm due to patient jerking her arms/movement. Patient is alert & oriented to self only. Couldn't recall the facility that she's at, and stated date was November 27 or something . Continuous monitoring in place, pt is tachycardic 110-120 bpm, hot to touch. Continuous rectal thermometer in place, currently 104.4 F. Sepsis protocol in place. Provider aware of plan to perform straight catheterization after administration (& effectiveness) of Haldol/Ativan. Labs drawn and sent for analysis. Awaiting urine specimen collection and analysis upon successful urinary catheterization. Care ongoing by [facility].
--- NOTE | 2023-12-21 19:58 | MHC.EDTECH ---
Patient is talking to her self and not allowing anyone to touch her, septic protocol called at 6 daughter at bedside
[2023-12-21 20:00] LABS: Partial Thromboplastin Time 30.4 SEC (26.0-36.8)
--- NOTE | 2023-12-21 20:00 | ED.AMS ---
HPI - Altered Mental Status General Chief Complaint: Altered Mental Status Stated Complaint: from [facility] AMS, possible sepsis, leg hot to touch Time Seen by Provider: 12/21/23 19:46 Source: patient Mode of arrival: EMS Limitations: language barrier (Sammarinese speaking only) and other (Patient is psychotic with paranoid ideation) History of Present Illness ED Provider: Dr. Adam Barcenas HPI narrative: 63-year-old female with history of diabetes mellitus, asthma, COPD, GERD, obstructive sleep apnea, tib fib fracture of the left lower extremity 11/09/[address] [facility] who presents from her nursing facility for evaluation of altered mental status. Information was obtained from the patient's daughter. The daughter states that the patient has had episodes of paranoid ideation since being discharged from [facility]. The daughter states the patient was hospitalized for several days to weeks prior due to paranoid ideation. Today, the patient became more paranoid and delusional. According to the nursing notes, at [facility] the patient was holding a blanket and saying it was a baby. She was sitting in a chair screaming about a baby. Patient has no history dementia or psychiatric illness. Here in the emergency department the patient was found to be febrile with a temperature of a 104 degrees degrees F, respiratory rate was 22, heart rate was 113 and blood pressure was 149/71. Patient does have erythema with increased warmth of the left lower extremity. Related Data Home Medications ?Medication ?Instructions ?Recorded ?Confirmed albuterol sulfate 90 mcg/actuation 2 puff inhalation Q4-6H PRN 04/05/20 02/27/23 aerosol inhaler (ProAir HFA) Wheezing atorvastatin 20 mg tablet 20 mg PO BEDTIME 04/05/20 02/27/23 bupropion HCl 150 mg 24 hr tablet, 150 mg PO QAM 04/05/20 02/27/23 extended release (Wellbutrin XL) clonazepam 0.5 mg tablet 0.5 mg PO BEDTIME 04/05/20 02/27/23 docusate sodium 100 mg capsule 100 mg PO DAILY 04/05/20 02/27/23 (Colace) duloxetine 30 mg capsule,delayed 30 mg PO DAILY 04/05/20 02/27/23 release sprinkle fluticasone furoate 27.5 1 spray intranasal DAILY 04/05/20 02/27/23 mcg/actuation nasal spray,suspension gabapentin 800 mg tablet 800 mg PO DAILY 04/05/20 02/27/23 insulin detemir U-100 100 unit/mL subcut 04/05/20 02/27/23 subcutaneous solution (Levemir U-100 Insulin) lactulose 10 gram/15 mL oral 10 g PO BEDTIME 04/05/20 02/27/23 solution lisinopril 20 mg tablet 20 mg PO DAILY 04/05/20 02/27/23 loratadine 10 mg tablet 10 mg PO DAILY 04/05/20 02/27/23 meloxicam 15 mg tablet 15 mg PO DAILY 04/05/20 02/27/23 metformin 500 mg tablet 500 mg PO BID 04/05/20 02/27/23 trazodone 100 mg tablet 100 mg PO BEDTIME 04/05/20 02/27/23 Previous Rx's ?Medication ?Instructions ?Recorded pantoprazole 40 mg tablet,delayed 40 mg PO BID 90 days #180 tabs 01/01/23 release fluticasone furoate 200 1 ea inhalation DAILY #60 ea 07/05/23 mcg-vilanterol 25 mcg/dose inhalation powder (Breo Ellipta) umeclidinium 62.5 mcg/actuation 1 inh inhalation DAILY #30 ea 07/05/23 blister powder for inhalation (Incruse Ellipta) prednisone 20 mg tablet 40 mg (2 x 20 mg) PO DAILY 5 days 10/23/23 #10 tabs Allergies Allergy/AdvReac Type Severity Reaction Status Date / Time iodine Allergy Severe THROAT Verified 12/21/23 19:08 CLOSES ibuprofen AdvReac Intermediate UPSET Verified 12/21/23 19:08 STOMACH Review of Systems Review of Systems: Yes all other systems are reviewed and are negative [facility] Past Medical History [facility] Narrative: Social history: The patient is currently residing at the [facility] facility secondary to her left tib-fib fracture/ORIF from [facility] since 11/09/2023. Medical History Diabetes Hepatitis GERD (gastroesophageal reflux disease) Neuropathy Fibromyalgia Depression Sleep apnea Asthma Elevated cholesterol HTN (hypertension) Surgical History History of esophagogastroduodenoscopy (EGD) H/O colonoscopy S/P insertion of spinal cord stimulator Hx of excision of mass Hx of hernia repair Social History Social History Household Members: None Alcohol intake: current Alcohol intake frequency: does not drink Alcohol type: wine Patient Tobacco Use Status: Tobacco use Unknown Cigarette Packs Per Day: 1 Cigarettes Per Day: 24 Years Smoked: 48 Smoked in Last 30 Days: No Use of substances other than those prescribed or required for medical reasons: No Substance Use Type: Marijuana Advance Directives: Yes Advance Directives Information Provided: No Advance Directives on File: No Do you have a plan to hurt others: No Plan Nutrition Risks: No Nutritional Risk Patient : No Physical Exam ED Vital Signs: Vital Signs - 24 hr 12/21/23 19:44 12/21/23 19:59 12/21/23 20:35 Temperature 104.0 F H 104.0 F H 103.6 F H Pulse Rate 113 H 118 H 114 H Respiratory Rate 22 H 20 19 Blood Pressure 149/71 H 129/81 167/77 H Pulse Oximetry 97 97 96 Oxygen Delivery Method Nasal Cannula Room Air Room Air 12/21/23 20:50 12/21/23 21:20 12/21/23 21:27 Temperature 103.5 F H 103.5 F H 103.6 F H Pulse Rate 123 H 120 H 121 H Respiratory Rate 28 H 30 H 30 H Blood Pressure 162/87 H 178/82 H 164/80 H Pulse Oximetry 96 97 95 Oxygen Delivery Method Room Air Room Air 12/21/23 22:00 12/21/23 22:12 Temperature 103.3 F H 103.3 F H Pulse Rate 117 H 123 H Respiratory Rate 29 H 28 H Blood Pressure 169/85 H 164/77 H Pulse Oximetry 96 96 Oxygen Delivery Method Room Air Room Air BMI result Body Mass Index 34.1 Vital signs reviewed, patient was an elevated temperature, heart rate, respiratory rate with a normal blood pressure. Exam: General: Patient was agitated, she is speaking Sammarinese and is referring to a baby, she does not want to be touched and is not cooperative Head: Normocephalic, atraumatic EENT: PERRL, Lids normal, sclera normal, conjunctiva normal, nose normal , ears normal, throat without erythema or exudates Neck: Supple, no adenopathy Lung: breath sounds symmetric, no wheezing, rales or rhonchi Chest: symmetric movement, nontender Heart: regular rate and rhythm, normal S1, S2 no murmurs or rubs Abdomen: soft, non-tender, nondistended, normal bowel sounds Back: no vertebral tenderness, no CVAT Extremities: Patient has erythema to her left lower extremity from the ankle to just below the knee, the erythema is warm to the touch Neuro: Awake, cranial nerves appear to be intact, moves all extremities symmetrically Psych: Patient is very paranoid and delusional Medications Administered Generic Name Dose Route Start Last Admin Trade Name Freq PRN Reason Stop Dose Admin Enoxaparin Sodium 40 mg 12/21/23 23:00 12/21/23 22:45 Enoxaparin Sodium 40 Mg/0.4 Ml Syringe SUBCUT 40 mg Q24H PEYTON Administration Insulin Human Lispro 0 unit 12/22/23 00:00 12/21/23 23:48 Insulin Lispro 100 Unit/Ml 3 Ml Vial SUBCUT Not Given Q6H PEYTON Protocol Sodium Chloride 3 ml 12/22/23 00:00 12/21/23 23:49 0.9 % Sodium Chloride Flush 3 Ml Syringe IVFLUSH Not Given QSHIFT PEYTON Discontinued Medications Generic Name Dose Route Start Last Admin Trade Name Freq PRN Reason Stop Dose Admin Acetaminophen 650 mg 12/21/23 20:12 12/21/23 20:46 Acetaminophen Supp 650 Mg Supp.Rect [place] 12/21/23 20:13 650 mg ONCE ONE Administration Diphenhydramine HCl 25 mg 12/21/23 19:56 12/21/23 20:08 Diphenhydramine Hcl 50 Mg/Ml Vial IVPUSH 12/21/23 19:57 25 mg ONCE ONE Administration Haloperidol Lactate 5 mg 12/21/23 19:56 12/21/23 20:08 Haloperidol Lactate 5 Mg/Ml Vial IVPUSH 12/21/23 19:57 5 mg ONCE ONE Administration Haloperidol Lactate 5 mg 12/21/23 21:46 12/21/23 21:50 Haloperidol Lactate 5 Mg/Ml Vial IVPUSH 12/21/23 21:47 5 mg ONCE ONE Administration Sodium Chloride 2,787 mls @ 2,787 mls/hr 12/21/23 19:56 12/21/23 21:58 Ns 30 ml/kg infuse over 1 hr (2787 ml) 12/21/23 20:55 Infused IV Infusion .Q1H STA Piperacillin Sod/Tazobactam 100 mls @ 200 mls/hr 12/21/23 19:56 12/21/23 20:40 Sod 4.5 gm/ Sodium Chloride IV 12/21/23 20:25 Infused ONCE ONE Infusion Vancomycin HCl 2,000 mg/ 500 mls @ 250 mls/hr 12/21/23 19:56 12/21/23 23:22 Sodium Chloride IV 12/21/23 21:55 Infused ONCE ONE Infusion Acetaminophen 1,000 mg in 100 mls @ 400 mls/hr 12/21/23 23:57 12/22/23 00:28 Ofirmev IV 12/22/23 00:11 Infused ONCE ONE Infusion Lorazepam 1 mg 12/21/23 19:56 12/21/23 20:08 Lorazepam 2 Mg/Ml Vial IVPUSH 12/21/23 19:57 1 mg STAT STA Administration Lorazepam 1 mg 12/21/23 23:57 12/22/23 00:14 Lorazepam 2 Mg/Ml Vial IVPUSH 12/21/23 23:58 1 mg STAT STA Administration Medical Decision Making Medical Decision Making MDM Narrative: 63-year-old female with history of diabetes mellitus, asthma, COPD, GERD, obstructive sleep apnea, tib fib fracture of the left lower extremity 11/09/[address] [facility] who presents from her nursing facility for evaluation of altered mental status with psychosis and paranoid delusions. According to the daughter patient has had paranoid ideation 2 weeks prior and was admitted to [facility] and has had these delusions since being hospitalized at her rehab facility. Patient's vital signs revealed temperature of a 104 degrees degrees F, respiratory rate was 22, heart rate was 113 and blood pressure was 149/71. Patient does have erythema with increased warmth of the left lower extremity from the ankle to just below the knee. 6: Sepsis protocol started at 19:56 hours Differential diagnosis: ?Includes but is not limited to cellulitis, sepsis, encephalopathy, auditory hallucinations, visual hallucinations, electrolyte abnormalities, anemia, urinary tract infection Following evaluation was ordered: CBC, BMP, liver panel, PT/INR, PTT, lactic acid, urinalysis, blood cultures x2, EKG Patient was initially treated with the following: Haldol 5 mg IV, Ativan 1 mg IV, Benadryl 25 mg IV, Zosyn 4.5 g IV and vancomycin 2 g IV, normal saline 30 cc/kilogram bolus Course: 22:01 My interpretation patient's laboratory evaluation as follows: WBC was normal 8100, normocytic anemia which is chronic with an H&H of 9.5 in 30.7. Platelet count was normal. Urinalysis was negative. Tox screen was positive for opiates and benzodiazepine-the patient was given benzos here in the emergency department prior to urine drug screen collection. Lactic acid was normal at 0.9. COVID-19, RSV and influenza were negative. Tib fib x-rays did not reveal any significant abnormalities except for posterior soft tissue swelling. The patient did get improvement of her acute psychosis with the above IV medications, she did require 2nd dose of Haldol [address] scan of the head is pending. I will discuss admission for cellulitis with the covering hospitalist. 22:40 I did discuss the patient over tiger text with the covering hospitalist, Dr. Zheng and the patient will be admitted for further management. Admission/Observation Consideration of admission/observation: Escalation of care including admission/observation considered Lab Data MDM Lab Attestation statement: I reviewed the patient's lab results. 12/21/23 19:38 12/21/23 19:38 Labs: Lab Results 12/21/23 12/21/23 Range/Units 19:38 20:45 WBC 8.1 (4.8-10.8) X10*3/uL RBC 3.52 L (4.20-5.50) X10*6/uL Hgb 9.5 L (12.0-16.0) g/dl Hct 30.7 L (37.0-47.0) % MCV 87.2 (80.0-98.0) fL MCH 27.0 (27.0-33.0) pg MCHC 30.9 L (31.0-35.0) g/dl RDW 14.1 (11.0-16.0) % Plt Count 168 (160-400) X10*3/uL MPV 10.7 (9.4-12.3) fL Immature Gran % (Auto) 0.4 (0.0-0.4) % Neut % (Auto) 83.2 H (45-73) % Lymph % (Auto) 11.0 L (20-40) % [place] % (Auto) 4.6 (2-11) % Eos % (Auto) 0.4 (0-4) % Baso % (Auto) 0.4 (0-2) % Lymph # (Auto) 0.9 L (1.2-4.9) X10*3/uL [place] # (Auto) 0.4 (0.1-1.2) X10*3/uL Eos # (Auto) 0.0 (0.0-0.4) X10*3/uL Baso # (Auto) 0.0 (0.0-0.2) X10*3/uL Abs Immat Gran (auto) 0.03 (0.00-0.03) X10*3/uL Absolute Neuts (auto) 6.7 (2.0-8.3) x10*3/uL Absolute Nucleated RBC 0.000 (0.0-0.012) X10*3/uL Nucleated RBC % (auto) 0.0 (0.0-0.2) /100WBC PT 13.5 H (11.1-13.3) SEC INR 1.1 (0.9-1.1) APTT 30.4 (26.0-36.8) SEC Sodium 140 (135-145) mmol/L Potassium 4.6 (3.3-5.1) mmol/L Chloride 109 H (96-108) mmol/L Carbon Dioxide 24 (22-29) mmol/L Anion Gap 12 (12-20) BUN 18 H (9-16) mg/dL Creatinine 1.21 (0.5-1.4) mg/dL Estim Creat Clear Calc 52.9 Estimated GFR 45 Random Glucose 189 H (60-115) mg/dL Lactic Acid 0.9 (0.5-2.0) mmol/L Calcium 9.5 D (8.4-10.2) mg/dL Total Bilirubin 0.3 (0.0-1.0) mg/dL Direct Bilirubin 0.1 (0.0-0.5) mg/dL AST 20 (5-31) U/L ALT 11 (0-31) U/L Alkaline Phosphatase 78 (39-117) U/L Total Protein 7.6 (6.5-8.0) g/dL Albumin 4.1 (3.5-5.0) g/dL Urine Color Yellow Urine Appearance Clear Urine pH 8.5 (5.0-9.0) Ur Specific [place] 1.015 (1.005-1.025) Urine Protein Negative (Neg-Trace) mg/dL Urine Glucose (UA) Negative (Negative) mg/dL Urine Ketones Negative (Negative) mg/dL Urine Blood Negative (Negative) Urine Nitrite Negative (Negative) Ur Leukocyte Esterase Negative (Negative) Urine RBC 0-2 (0-2) /HPF Urine WBC 0-5 (0-5) /HPF Ur Squamous Epith Cells 0-2 (0-2) /HPF Urine Bacteria None Seen (None Seen) Hyaline Casts 0-2 (0-2) /LPF Urine Opiates Screen Not Detected (Not Detect) Ur Buprenorphine Scrn Not Detected (Not Detect) ng/mL Ur Oxycodone Screen Positive H (Not Detect) ng/mL Urine Methadone Screen Not Detected (Not Detect) ng/mL Urine Fentanyl Screen Not Detected (Not Detect) Ur Barbiturates Screen Not Detected (Not Detect) Ur Phencyclidine Scrn Not Detected (Not Detect) Ur Amphetamines Screen Not Detected (Not Detect) U Benzodiazepines Scrn Not Detected (Not Detect) Urine Cocaine Screen Not Detected (Not Detect) U Marijuana (THC) Screen Not Detected (Not Detect) Influenza Type A (PCR) NEGATIVE (Negative) Influenza Type B (PCR) NEGATIVE (Negative) RSV RNA Qual (PCR) NEGATIVE (Negative) SARS-CoV-2 RNA (RT-PCR) NEGATIVE (Negative) Independent Interpretation I performed an independent interpretation of an: Plain X-Ray Interpretation: My interpretation of the patient's tib-fib x-ray is as follows: Nose disruption of the tibial hardware, no obvious fracture noted, no obvious osteomyelitis Radiology Impression Discussion of test interpretation with radiology: I have reviewed the radiologist's reading. Radiologist Impression: XR tibia fibula LT 2V IMPRESSION: * No periosteal reaction, cortical erosion, focal osteopenia to suggest osteomyelitis. * Proximal fibular and distal fibular fractures. * Tibial ORIF without evidence of hardware complication. * Posterior soft tissue swelling. Dictated By: Maite Mcdaniel MD CT head/brain wo IV con IMPRESSION: No acute intracranial pathology. Dictated By: Bridger Cha Jr, DO Independent Historian Clinical information obtained from an independent historian. History obtained from or confirmed by: Spouse and Other (Daughter) Critical Care Time Critical Care Time Critical Care Time: Yes Total Critical Care Time: 80 Attestation: Critical Care: The patient was critically ill with a high probability of imminent or life threatening deterioration. I spent greater than 30 minutes of discontinuous time evaluating the patient,delivering critical care at the bedside, discussing and evaluating pertinent data with consultants. Critical care time does not include time spent performing separately billable procedures or teaching. Total time spent performing critical care was 80 minutes. Discharge Plan Discharge Clinical Impression: Cellulitis of left leg, Delirium, Paranoid ideation, Hallucinations, visual Patient Disposition: Admitted As Inpatient
[2023-12-21 20:02] LABS: Lactic Acid 0.9 mmol/L (0.5-2.0)
[2023-12-21 20:07] LABS: Alanine Aminotransferase 11 U/L (0-31); Albumin Level 4.1 g/dL (3.5-5.0); Alkaline Phosphatase 78 U/L (39-117); Anion Gap 12 (12-20); Aspartate Amino Transferase 20 U/L (5-31); Bilirubin Direct 0.1 mg/dL (0.0-0.5); Bilirubin Total 0.3 mg/dL (0.0-1.0); Blood Urea Nitrogen 18 mg/dL (9-16); Calcium 9.5 mg/dL (8.4-10.2); Carbon Dioxide 24 mmol/L (22-29); Chloride 109 mmol/L (96-108); Creatinine Clr Calc Pharmacy 52.9; Estimated Glomerular Filt Rate 45; Glucose Random 189 mg/dL (60-115); Potassium 4.6 mmol/L (3.3-5.1); Sodium 140 mmol/L (135-145); Total Protein 7.6 g/dL (6.5-8.0)
[2023-12-21] MEDS: LORazepam 2 MG/ML VIAL 1 MG IVPUSH (20:08)
[2023-12-21] MEDS: Haloperidol Lactate 5 MG/ML VIAL IVPUSH ×2 (20:08→21:50)
[2023-12-21] MEDS: diphenhydrAMINE HCL 50 MG/ML VIAL 25 MG IVPUSH (20:08)
--- OUTSIDE RECORDS SUMMARY | 2023-12-21 20:08 | XMS_ITS | Continuity of Care Document ---
Author Organization [facility] ter Address [address] [place] [id number]- Care Team Providers Care Cat And Dog Bather Name Role Phone Name Henry BARTLETT Primary Care Physician Encounter [facility] Date(s): 10/11/22 - 10/11/[address] [id number] Discharge Disposition: A-D/C Home Attending Physician: Chelsie Pride MD Admitting Physician: Chelsie Pride MD Referring Physician: Chaz House DO Allergies, Adverse Reactions, Alerts Substance Reaction Severity Status ibuprofen Active aspirin Active Contrast Dye Active CeleBREX Active Medications albuterol 2.5mg / 3mL (0.083%) (OP) 3 mL = 2.5 mg, Neb, Every 6 hours, PRN as needed for wheezing, # 90 mL, 0 Refills, Maintenance Start Date: 10/11/22 Status: Ordered atorvastatin 20 mg oral tablet 1 tablet = 20 mg, By Mouth, Daily, # 30 tablet, 0 Refills, Maintenance, 10/11/22 9:54:00 EDT, Tablet, Partial fill upon patient request if the prescription is for a schedule II opioid drug. Start Date: 10/11/22 Status: Ordered azelastine 137 mcg/inh (0.1%) nasal spray 2 sprays, Nares, Both, 2 times a day, 0 Refills, Maintenance, 10/11/22 9:58:00 EDT, Partial fill upon patient request if the prescription is for a schedule II opioid drug. Start Date: 10/11/22 Status: Ordered Breo Ellipta 200 mcg-25 mcg/inh inhalation powder 1 puffs, Inhalation, Daily, 0 Refills, Maintenance, 10/11/22 9:48:00 EDT, Powder, Partial fill uponpatient request if the prescription is for a schedule II opioid drug. Start Date: 10/11/22 Status: Ordered Carafate 1 gm/10 ml oral suspension 10 mL = 1 Gm, By Mouth, 3 times a day before meals and bedtime, 0 Refills, Maintenance, 10/11/22 9:52:00 EDT, Partial fill upon patient request if the prescription is for a schedule II opioid drug. Start Date: 10/11/22 Status: Ordered cetirizine 10 mg oral tablet 1 tablet = 10 mg, By Mouth, Daily, # 30 tablet, 0 Refills, Maintenance, 10/11/22 9:58:00 EDT, Tablet, Partial fill upon patient request if the prescription is for a schedule II opioid drug. Start Date: 10/11/22 Status: Ordered Colace sodium 100 mg oral capsule 100 mg, 1, capsule, By Mouth, 2 times a day, PRN, # 20 capsule, Refills 0, Maintenance, for constipation, 10/11/22 9:51:00 EDT, Partial fill upon patient request if the prescription is for a scheduleII opioid drug. Start Date: 10/11/22 Status: Ordered duloxetine 60 mg oral enteric coated capsule 2 capsule = 120 mg, By Mouth, Daily, do not crush or chew, # 60 capsule, 0 Refills, Maintenance, 10/11/22 9:47:00 EDT, CR Capsule, Partial fill upon patient request if the prescription is for a schedule II opioid drug. Start Date: 10/11/22 Status: Ordered ferrous gluconate 324 mg oral tablet 1 tablet = 324 mg, By Mouth, Daily, # 100 tablet, 0 Refills, Maintenance, 10/11/22 9:56:00 EDT, Tablet, Partial fill upon patient request if the prescription is for a schedule II opioid drug. Start Date: 10/11/22 Status: Ordered lisinopril 20 mg oral tablet 20 mg, 1, tablet, By Mouth, Daily, # 30 tablet, Refills 0, Maintenance, 10/11/22 9:56:00 EDT, Partial fill upon patient request if the prescription is for a schedule II opioid drug. Start Date: 10/11/22 Status: Ordered Lyrica 100 mg oral capsule 1 capsule = 100 mg, By Mouth, 3 times a day, # 90 capsule, 5 Refills, Maintenance, 10/11/22 9:59:00EDT, Capsule, Partial fill upon patient request if the prescription is for a schedule II opioid drug. Start Date: 10/11/22 Status: Ordered meloxicam 15 mg oral tablet 1 tablet = 15 mg, By Mouth, Daily, # 30 tablet, 0 Refills, Maintenance, 10/11/22 9:54:00 EDT, Tablet, Partial fill upon patient request if the prescription is for a schedule II opioid drug. Start Date: 10/11/22 Status: Ordered metFORMIN 500 mg oral tablet 1 tablet = 500 mg, By Mouth, 2 times a day, # 60 tablet, 0 Refills, Maintenance, 10/11/22 9:54:00 EDT, Tablet, Partial fill upon patient request if the prescription is for a schedule II opioid drug. Start Date: 10/11/22 Status: Ordered omeprazole 40 mg oral enteric coated capsule 1 capsule = 40 mg, By Mouth, Daily, # 30 capsule, 0 Refills, Maintenance, 10/11/22 9:51:00 EDT, EC Capsule, Partial fill upon patient request if the prescription is for a schedule II opioid drug. Start Date: 10/11/22 Status: Ordered Percocet 7.5 mg-325 mg oral tablet 1 tablet, By Mouth, Every 8 hours, 0 Refills, Maintenance, 10/11/22 9:59:00 EDT, Partial fill upon patient request if the prescription is for a schedule II opioid drug. Start Date: 10/11/22 Status: Ordered Restasis 0.05% ophthalmic emulsion 1 drops, Every 12 hours, 0 Refills, Maintenance, 10/11/22 9:48:00 EDT, Partial fill upon patient request if the prescription is for a schedule II opioid drug. Start Date: 10/11/22 Status: Ordered riboflavin 400 mg oral capsule 1 capsule = 400 mg, By Mouth, Daily, # 30 capsule, 5 Refills, Maintenance, 10/11/22 9:56:00 EDT, Partial fill upon patient request if the prescription is for a schedule II opioid drug. Start Date: 10/11/22 Status: Ordered SUMAtriptan 100 mg oral tablet 1 tablet = 100 mg, By Mouth, Daily, PRN for migraine headache, may repeat dose after 2 hours up to a maximum of 2, # 9 tablet, 0 Refills, Maintenance, 10/11/22 9:57:00 EDT, Tablet, Partial fill upon patient request if the prescription is for a schedul... Start Date: 10/11/22 Status: Ordered tiZANidine 2 mg oral capsule 1 capsule = 2 mg, By Mouth, 3 times a day, PRN as needed for muscle spasm, # 90 capsule, 5 Refills,Maintenance, 10/11/22 9:58:00 EDT, Capsule, Partial fill upon patient request if the prescription is for a schedule II opioid drug. Start Date: 10/11/22 Stop Date: 11/10/22 Status: Ordered traZODone 100 mg oral tablet 200 mg, 2, tablet, By Mouth, Daily at bedtime, Refills 0, Maintenance, 10/11/22 9:49:00 EDT, Partial fill upon patient request if the prescription is for a schedule II opioid drug. Start Date: 10/11/22 Status: Ordered Problem List Condition Confirmation Course Effective Dates Status Health [facility] Informant Severe obesity Confirmed Active Vital Signs Most recent to oldest [Reference Range]: 1 2 3 Height 160 cm (10/11/22 8:55 AM) Weight 104 kg (10/11/22 8:55 AM) Oxygen Saturation [94-100 %] 96 % (10/11/22 8:55 AM) Pulse Rate [55-90 bpm] 84 bpm (10/11/22 8:55 AM) Body Mass Index [18.5-24.99 kg/m2] 40.63 kg/m2 *>HHI* (10/11/22 8:55 AM) Blood Pressure [90-138/55-84 mm Hg] 129/68mm Hg (10/11/22 9:00 AM) 128/75mm Hg (10/11/22 8:55 AM) Respiratory Rate [16-30 br/min] 22 br/min (10/11/22 11:39 AM) 16 br/min (10/11/22 8:55 AM) 23 br/min (10/11/22 8:55 AM) Temperature [96.8-100.4 DegF] 97.3 DegF (10/11/22 8:55 AM) Mode of Delivery (Oxygen) Room air (10/11/22 8:55 AM) Blood pressure sites Arm, left (10/11/22 9:00 AM) Arm, right (10/11/22 8:55 AM) Temperature Route Temporal (10/11/22 8:55 AM) Dry Weight 104 kg (10/11/22 8:55 AM) Weight Obtained Via Standing scale (10/11/22 8:55 AM) Dry Weight Obtained Via Standing scale (10/11/22 8:55 AM) Social History Social History Type Response Sex Female Patient Care team information Care Team Personnel Name: Name Henry BARTLETT Position: S Outreach Member Role: PCP Address: Address: [address] [place] [id number]
[2023-12-21] MEDS: Piperacillin Sodium/Tazobactam 4.5 GM in 0.9 % Sodium Chloride 100 ML IV (20:12)
[2023-12-21] MEDS: Acetaminophen Supp 650 MG SUPP.RECT PR (20:46)
--- NOTE | 2023-12-21 20:50 | PC.NURSE ---
Rectal temp probe replaced, urinary straight cath complete and urine sent to lab. Patient resting comfortably at this time. Awaiting xray and CT scan.
--- NOTE | 2023-12-21 20:51 | MHC.EDTECH ---
Assisted RN with a straight cath, patient had 180MLS of output (yellow in color) urine,sample and sars/flu/rsv was obtained and sent to lab. Vitals taken temp is 103.5,HR 123,resp.28,RN aware at bedside. Patient is calm at this time,family at bedside
[2023-12-21 21:16] LABS: Appearance Urine Clear; Color Urine Yellow; Glucose Urine UA Negative (Negative); Leukocyte Esterase Urine Negative (Negative); Nitrite Urine Negative (Negative); PH 8.5 (5.0-9.0); Specific Gravity - Urine 1.015 (1.005-1.025); Urine Blood Negative (Negative); Urine Ketones Negative (Negative); Urine Protein Negative (Neg-Trace)
[2023-12-21 21:19] LABS: Bacteria Urine None Seen (None Seen); Hyaline Casts Urine 0-2 /LPF (0-2); RBC Urine 0-2 /HPF (0-2); Squamous Epithelial Cell Urine 0-2 /HPF (0-2); WBC Urine 0-5 /HPF (0-5)
[2023-12-21 21:34] LABS: Influenza A PCR NEGATIVE (Negative); Influenza B PCR NEGATIVE (Negative); Resp Syncy Virus RNA Qual PCR NEGATIVE (Negative); SARS COV2 PCR INHOUSE NEGATIVE (Negative)
--- NOTE | 2023-12-21 21:43 | MHC.EDTECH ---
Hourly rounds and vitals completed,temp is 103.6,HR,BP and resp rate are elevated,RN is aware,patient is resting quietly at this time.
--- NOTE | 2023-12-21 22:13 | MHC.EDTECH ---
Patient was incont. X2 of a large amount of urine,patient was cleaned bed linen changed yimi-care given , Pure-wick placed to keep patient clean and dry,patient tolerated well,draining urine at this time, patient is confused,calm at this time,vitals taken,temp is 103.3 at this time,RN is aware
--- NOTE | 2023-12-21 22:16 | PM.IMHP ---
History of Present Illness Date of Service: 12/21/23 Chief Complaint: AMS This is a 63-year-old female with pertinent history of mood disorder, insulin-dependent diabetes mellitus, SHANNAN, COPD not on home oxygen, gastroesophageal reflux disease, tibia/fibula fracture of left lower extremity 11/09/2023 with ORIF at [facility] who presents to the emergency department from nursing facility for evaluation of altered mentation. Unable to obtain history from the patient. History was obtained from ER provider and chart review. As per the daughter who was present earlier prior to my evaluation patient has had many episodes of paranoia since being discharged from [facility]. Patient was confused on the day of presentation. Also had episodes of paranoia and delusion. Apparently, patient was holding a blanket and saying that it was a baby. She was also screaming about a date baby while sitting in chair. No history of psychiatric illness. In the emergency department, patient was found to be febrile, tachypneic and tachycardic. Also found to have left lower extremity cellulitis and initiated on empiric IV antibiotics. Unable to obtain review of systems. Review of Systems Review of Systems: Yes Unobtainable due to mental condition and Unobtainable due to mental status PMFSH Medical History Diabetes Hepatitis GERD (gastroesophageal reflux disease) Neuropathy Fibromyalgia Depression Sleep apnea Asthma Elevated cholesterol HTN (hypertension) Surgical History History of esophagogastroduodenoscopy (EGD) H/O colonoscopy S/P insertion of spinal cord stimulator Hx of excision of mass Hx of hernia repair Social History Household Members: None Alcohol intake: current Alcohol intake frequency: does not drink Alcohol type: wine Patient Tobacco Use Status: Current everyday Tobacco user Cigarette Packs Per Day: 1 Cigarettes Per Day: 24 Years Smoked: 48 Smoked in Last 30 Days: No Use of substances other than those prescribed or required for medical reasons: No Substance Use Type: Marijuana Advance Directives: Yes Advance Directives Information Provided: No Advance Directives on File: No Do you have a plan to hurt others: No Plan Meds Allergies Allergy/AdvReac Type Severity Reaction Status Date / Time iodine Allergy Severe THROAT Verified 12/21/23 19:08 CLOSES ibuprofen AdvReac Intermediate UPSET Verified 12/21/23 19:08 STOMACH Home Medications ?Medication ?Instructions ?Recorded ?Confirmed ?Last Taken ?Type albuterol sulfate 90 mcg/actuation 2 puff inhalation Q4-6H PRN 04/05/20 02/27/23 Unknown History aerosol inhaler (ProAir HFA) Wheezing atorvastatin 20 mg tablet 20 mg PO BEDTIME 04/05/20 02/27/23 Unknown History bupropion HCl 150 mg 24 hr tablet, 150 mg PO QAM 04/05/20 02/27/23 Unknown History extended release (Wellbutrin XL) clonazepam 0.5 mg tablet 0.5 mg PO BEDTIME 04/05/20 02/27/23 Unknown History docusate sodium 100 mg capsule 100 mg PO DAILY 04/05/20 02/27/23 Unknown History (Colace) duloxetine 30 mg capsule,delayed 30 mg PO DAILY 04/05/20 02/27/23 Unknown History release sprinkle fluticasone furoate 27.5 1 spray intranasal DAILY 04/05/20 02/27/23 Unknown History mcg/actuation nasal spray,suspension gabapentin 800 mg tablet 800 mg PO DAILY 04/05/20 02/27/23 Unknown History insulin detemir U-100 100 unit/mL subcut 04/05/20 02/27/23 Unknown History subcutaneous solution (Levemir U-100 Insulin) lactulose 10 gram/15 mL oral 10 g PO BEDTIME 04/05/20 02/27/23 Unknown History solution lisinopril 20 mg tablet 20 mg PO DAILY 04/05/20 02/27/23 Unknown History loratadine 10 mg tablet 10 mg PO DAILY 04/05/20 02/27/23 Unknown History meloxicam 15 mg tablet 15 mg PO DAILY 04/05/20 02/27/23 Unknown History metformin 500 mg tablet 500 mg PO BID 04/05/20 02/27/23 Unknown History trazodone 100 mg tablet 100 mg PO BEDTIME 04/05/20 02/27/23 Unknown History Physical Exam Vital Signs and Narrative: Vital Signs: Last Vital Signs Temp 103.3 F H 12/21/23 22:12 Pulse 123 H 12/21/23 22:12 Resp 28 H 12/21/23 22:12 BP 164/77 H 12/21/23 22:12 Pulse Ox 96 12/21/23 22:12 O2 Del Method Room Air 12/21/23 22:12 BMI result Body Mass Index 34.1 Middle-aged female lying in bed in no distress Neck supple, no JVD Regular rate and rhythm, S1-S2 heard Regular breath sounds bilaterally, no wheezing or crackles appreciated Abdomen soft nontender, no guarding, no rigidity Patient is awake, alert and not answering questions appropriately, unable to assess orientation, not following commands Psych: Paranoid Left lower extremity with erythema and warmth Results Labs 12/21/23 19:38 12/21/23 19:38 Labs: Laboratory Results - last 24 hr 12/21/23 12/21/23 19:38 20:45 MCV 87.2 MCH 27.0 MCHC 30.9 L RDW 14.1 Plt Count 168 MPV 10.7 Immature Gran % (Auto) 0.4 Neut % (Auto) 83.2 H Lymph % (Auto) 11.0 L [place] % (Auto) 4.6 Eos % (Auto) 0.4 Baso % (Auto) 0.4 Lymph # (Auto) 0.9 L [place] # (Auto) 0.4 Eos # (Auto) 0.0 Baso # (Auto) 0.0 Abs Immat Gran (auto) 0.03 Absolute Neuts (auto) 6.7 Absolute Nucleated RBC 0.000 Nucleated RBC % (auto) 0.0 PT 13.5 H INR 1.1 APTT 30.4 Anion Gap 12 Estim Creat Clear Calc 52.9 Estimated GFR 45 Random Glucose 189 H Lactic Acid 0.9 Calcium 9.5 D Total Bilirubin 0.3 Direct Bilirubin 0.1 AST 20 ALT 11 Alkaline Phosphatase 78 Total Protein 7.6 Albumin 4.1 Urine Color Yellow Urine Appearance Clear Urine pH 8.5 Ur Specific [place] 1.015 Urine Protein Negative Urine Glucose (UA) Negative Urine Ketones Negative Urine Blood Negative Urine Nitrite Negative Ur Leukocyte Esterase Negative Urine RBC 0-2 Urine WBC 0-5 Ur Squamous Epith Cells 0-2 Urine Bacteria None Seen Hyaline Casts 0-2 Influenza Type A (PCR) NEGATIVE Influenza Type B (PCR) NEGATIVE RSV RNA Qual (PCR) NEGATIVE SARS-CoV-2 RNA (RT-PCR) NEGATIVE Imaging Radiologist's Impressions: Impressions Tibia/Fibula X-Ray 12/21/23 21:17 IMPRESSION: * No periosteal reaction, cortical erosion, focal osteopenia to suggest osteomyelitis. * Proximal fibular and distal fibular fractures. * Tibial ORIF without evidence of hardware complication. * Posterior soft tissue swelling. Assessment and Plan (1) Cellulitis of left leg: Status: Acute Plan This is a 63-year-old female with pertinent history of mood disorder, insulin-dependent diabetes mellitus, SHANNAN, COPD not on home oxygen, gastroesophageal reflux disease, tubular fracture of left lower extremity 11/09/2023 with ORIF at [facility] who presents to the emergency department from nursing facility for evaluation of altered mentation. #. Sepsis due to left lower leg cellulitis: Resuscitated with IV crystalloids. Initiating empiric IV vancomycin. Lactic acid and blood culture obtained. #. Acute metabolic encephalopathy in the setting of above #. Paranoia in a patient with mood disorder: Consulting Psychiatry to optimize #. Insulin-dependent diabetes mellitus with hyperglycemia: Initiating Accu-Cheks with sliding scale insulin every 6 hours #. COPD: No exacerbation during admission. Continue home inhalers #. Gastroesophageal reflux disease: On PPI #. Tibia/fibular fracture status post ORIF Med rec pending DVT prophylaxis: Lovenox Full code Admit as inpatient and will require two night minimum hospital stay for IV antibiotics (as above), which is not possible in a lesser acute setting. Quality Stroke Does the patient have a stroke diagnosis?: No VTE Prior VTE?: No VTE Risk Level:: Medical - moderate - high VTE Device Contraindication: Treatment Not Indicated VTE Drug Contraindication: N/A - Med Ordered
--- NOTE | 2023-12-21 22:30 | MHC.EDTECH ---
Belongings list completed,copy placed in chart, POC taken and is 130,RN was made aware
[2023-12-21 22:35] LABS: Glucose, Whole Blood 130 mg/dL (60-115)
[2023-12-21] MEDS: Enoxaparin Sodium 40 MG/0.4 ML SYRINGE SUBCUT (22:45)
[2023-12-21 22:47] LABS: Amphetamine Screen Urine Not Detected (Not Detect); Barbiturates, Urine Not Detected (Not Detect); Benzodiazepines Screen Urine Not Detected (Not Detect); Buprenorphine Scr Not Detected (Not Detect); Cannabinoid Screen Urine Not Detected (Not Detect); Cocaine Screen Urine Not Detected (Not Detect); Fentanyl, urine Not Detected (Not Detect); Methadone Screen, Urine Not Detected (Not Detect); Opiate Screen Urine Not Detected (Not Detect); Oxycodone Screen Urine Positive (Not Detect); Phencyclidine Screen Urine Not Detected (Not Detect)
[2023-12-21 23:51] LABS: Glucose, Whole Blood 128 mg/dL (60-115)
--- NOTE | 2023-12-21 23:56 | PC.NURSE ---
Assumed care for pt at 2300. Pt is altered, fidgety, attempting to get out of bed. Removed purewick. Core temp is currently 104F. [place] text sent to Dr. Zheng with this information. New orders placed in JUL.
[2023-12-22] VITALS (23 sets, daily range): BP systolic 109–198; BP diastolic 56–90; PULSE 94–123; RESP 16–34; TEMP 36.2–39.6; O2SAT 94–100
[2023-12-22] MEDS: Acetaminophen 1,000 MG/100 ML PIGGYBACK 400 MG IV ×3 (00:13→15:22)
[2023-12-22] MEDS: LORazepam 2 MG/ML VIAL 1 MG IVPUSH ×2 (00:14→15:21)
--- NOTE | 2023-12-22 00:24 | PC.NURSE ---
Pt medicated as per JUL. Cooling blanket not available. Dr. Zheng and charge nurse made aware. Ice packs applied. Pt tolerating well. Monitoring is ongoing.
--- NOTE | 2023-12-22 00:45 | PC.NURSE ---
Cooling blanket applied. Pt tolerating well.
--- NOTE | 2023-12-22 02:36 | MHC.EDTECH ---
Pt placed on cooling blanket, set to 98.6. Will take pt off once temp reaches 98.6
--- NOTE | 2023-12-22 04:21 | MHC.EDTECH ---
This tech took over care of patient at 0400AM,rounds and vitals completed,patient has a pure-wick in place and is clean and dry,and is resting quietly.call gay in reach
--- NOTE | 2023-12-22 04:25 | MHC.EDTECH ---
Cooling blanket is turned off at this time
[2023-12-22 05:09] LABS: Glucose, Whole Blood 166 mg/dL (60-115)
--- NOTE | 2023-12-22 05:09 | MHC.EDTECH ---
Patient placed back on cooling blanket,temp is 102.3 at this time,RN at bedside
[2023-12-22 05:10] LABS: Basophils Absolute Auto 0.1 X10*3/uL (0.0-0.2); Basophils Percent Auto 0.3 % (0-2); Hematocrit 33.9 % (37.0-47.0); Hemoglobin 10.6 g/dl (12.0-16.0); Imm Gran Abs Auto 0.12 X10*3/uL (0.00-0.03); Imm Gran Pct Auto 0.7 % (0.0-0.4); Lymphocytes Absolute Auto 1.1 X10*3/uL (1.2-4.9); Lymphocytes Percent Auto 6.3 % (20-40); MANUAL DIFF FLAG NO; Mean Corpuscular HGB Conc 31.3 g/dl (31.0-35.0); Mean Corpuscular Hemoglobin 27.4 pg (27.0-33.0); Mean Corpuscular Volume 87.6 fL (80.0-98.0); Mean Platelet Volume 10.9 fL (9.4-12.3); Monocytes Absolute Auto 1.5 X10*3/uL (0.1-1.2); Monocytes Percent Auto 8.3 % (2-11); Neutrophils Absolute Auto 14.9 x10*3/uL (2.0-8.3); Neutrophils Percent Auto 84.4 % (45-73); Platelet Count 151 X10*3/uL (160-400); Red Blood Count 3.87 X10*6/uL (4.20-5.50); Red Cell Distribution Width 14.3 % (11.0-16.0); White Blood Count 17.7 X10*3/uL (4.8-10.8)
[2023-12-22 05:24] LABS: Anion Gap 13 (12-20); Blood Urea Nitrogen 15 mg/dL (9-16); Calcium 9.3 mg/dL (8.4-10.2); Carbon Dioxide 19 mmol/L (22-29); Chloride 112 mmol/L (96-108); Creatinine Clr Calc Pharmacy 52.9; Estimated Glomerular Filt Rate 45; Glucose Random 190 mg/dL (60-115); Sodium 140 mmol/L (135-145)
--- NOTE | 2023-12-22 05:41 | PC.NURSE ---
Pts alert and oriented to self. Pt is on the cooling blanket. Temp rising to 102.9. [place] text sent to Dr. Zheng.
--- NOTE | 2023-12-22 06:20 | MHC.EDTECH ---
Emptied 900MLS of clear yellow urine from suction canister, patient removed pure-wick,per-care given linen changed,new pure wick placed,patient tolerated well, Vitals taken temp is 103.2 cooling blanket remains on patient.
[2023-12-22] MEDS: vancomycin HCL 1,250 MG in 0.9 % Sodium Chloride 250 ML 166.67 MG IV (08:16)
[2023-12-22] MEDS: 0.9 % Sodium Chloride Flush 3 ML SYRINGE IVFLUSH (08:18)
--- NOTE | 2023-12-22 09:32 | PHA.MEDREC ---
Addendum entered by Ashlyn Wolfe RPh 12/22/23 10:02: MED REC DONE BY AUDIT MGR, REVIEWED BY [facility] Original Note: Pharmacy Consult ? Medication Reconciliation Pharmacy has completed the medication reconciliation. List from [facility].
[2023-12-22] MEDS: Acetaminophen Supp 650 MG SUPP.RECT PR (10:11)
[2023-12-22] MEDS: cefTRIAXone sodium 2 GM in 0.9 % Sodium Chloride 50 ML IV (10:12)
[2023-12-22] MEDS: Ampicillin Sodium 2 GM in 0.9 % Sodium Chloride 100 ML IV ×3 (10:44→18:49)
--- NOTE | 2023-12-22 11:32 | PC.NURSE ---
Assumed care of this patient at 1100 from [facility], upon initial bedside assessment, patient noted to have rectal temp of 102.0, uncomfortable on stretcher. Patient repositioned, bed linen change, cooling blanket reapplied.
--- NOTE | 2023-12-22 11:33 | P.PNIM_ITS ---
Subjective Subjective Date of Service: 12/22/23 Interval History: seen and evaluated this morning altered mentation, verbally responsive, more alert than last night continues to spike fever no other overnight events Review of Systems Review of Systems: Yes Unobtainable due to mental status Physical Exam 2 Vital Signs: Vital Signs: Last Vital Signs Temp 99 F 12/22/23 10:13 Pulse 106 H 12/22/23 10:13 Resp 22 H 12/22/23 10:13 BP 160/74 H 12/22/23 10:13 Pulse Ox 98 12/22/23 10:13 O2 Del Method Room Air 12/22/23 07:21 BMI result Body Mass Index 34.1 Const: Other: Constitutional : altered, restless, not in distress Neck : Normal inspection, Supple Cardiovascular : RRR, no JVP, no lower extremity edema Respiratory : good bilateral air entry, no crackles, wheezes or rhonchi Gastrointestinal: soft, lax, Normal bowel sounds, Non tender Skin : Warm, Dry, LLE mild warmth but no erythema or tenderness around the surgical area, no drainage. Neurological : respond to physical stimuli, says a word or 2, follow some commands, restless Objective Data Active Medications Acetaminophen (Acetaminophen 325 Mg Tablet) 650 mg PO Q6H PRN PRN Reason: Pain, Mild (Pain Scale 1-3), fever or headache Acetaminophen (Acetaminophen Supp 650 Mg Supp.Rect) 650 mg DC Q6H PRN PRN Reason: Pain, Mild (Pain Scale 1-3), fever or headache Last Admin: 12/22/23 10:11 Dose: 650 mg Documented By: HERNANDEZ Albuterol Sulfate (Albuterol Sulfate (0.083%) 2.5 Mg/3 Ml Vial.Neb) 2.5 mg INHALE Q4H PRN PRN Reason: Shortness of Breath/Wheezing Calcium Carbonate (Calcium Carbonate 750 Mg Tab.Chew) 750 mg PO Q4H PRN PRN Reason: Heartburn Glucose (Glucose Gel 15 Gm Gel..Gram.) 15 gm PO Q15M PRN; Protocol PRN Reason: per Hypoglycemia Standing Ord. Dextrose (D10) 250 mls @ 750 mls/hr IV Q15M PRN; Protocol PRN Reason: per Hypoglycemia Standing Ord. Vancomycin HCl 750 mg/ Sodium (Chloride) 265 mls @ 265 mls/hr IV Q12H [facility] Ampicillin Sodium 2 gm/ Sodium (Chloride) 100 mls @ 200 mls/hr IV Q4H [facility] Last Infusion: 12/22/23 11:32 Dose: Infused Documented By: MIKEL Ceftriaxone Sodium 2 gm/ (Sodium Chloride) 50 mls @ 100 mls/hr IV Q12H [facility] Last Infusion: 12/22/23 11:31 Dose: Infused Documented By: MIKEL Insulin Human Lispro (Insulin Lispro 100 Unit/Ml 3 Ml Vial) 0 unit SUBCUT Q6H [facility]; Protocol Last Admin: 12/22/23 05:08 Dose: Not Given Documented By: DIOGO Non-Admin Reason: NPO Magnesium Hydroxide (Milk Of Magnesia 30 Ml Oral.Susp) 30 ml PO DAILY PRN PRN Reason: Constipation Melatonin (Melatonin 3 Mg Tablet) 6 mg PO BEDTIME PRN PRN Reason: Insomnia Ondansetron HCl (Ondansetron Hcl 4 Mg/2 Ml Vial) 4 mg IVPUSH Q8H PRN PRN Reason: Nausea and Vomiting Pharmacy Consult (Consult Rx Vancomycin Dosing) 1 each MISCELLANE DAILY PRN PRN Reason: Consult order Sodium Chloride (0.9 % Sodium Chloride Flush 3 Ml Syringe) 3 ml IVFLUSH QSHIFT [facility] Last Admin: 12/22/23 08:18 Dose: 3 ml Documented By: HERNANDEZ Labs 12/22/23 05:06 12/22/23 05:06 Labs: Laboratory Results - last 24 hr 12/21/23 12/21/23 12/21/23 19:38 20:45 22:29 MCV 87.2 MCH 27.0 MCHC 30.9 L RDW 14.1 Plt Count 168 MPV 10.7 Immature Gran % (Auto) 0.4 Neut % (Auto) 83.2 H Lymph % (Auto) 11.0 L [place] % (Auto) 4.6 Eos % (Auto) 0.4 Baso % (Auto) 0.4 Lymph # (Auto) 0.9 L [place] # (Auto) 0.4 Eos # (Auto) 0.0 Baso # (Auto) 0.0 Abs Immat Gran (auto) 0.03 Absolute Neuts (auto) 6.7 Absolute Nucleated RBC 0.000 Nucleated RBC % (auto) 0.0 PT 13.5 H INR 1.1 APTT 30.4 Anion Gap 12 Estim Creat Clear Calc 52.9 Estimated GFR 45 POC Glucose 130 H Random Glucose 189 H Lactic Acid 0.9 Calcium 9.5 D Total Bilirubin 0.3 Direct Bilirubin 0.1 AST 20 ALT 11 Alkaline Phosphatase 78 Total Protein 7.6 Albumin 4.1 Urine Color Yellow Urine Appearance Clear Urine pH 8.5 Ur Specific [place] 1.015 Urine Protein Negative Urine Glucose (UA) Negative Urine Ketones Negative Urine Blood Negative Urine Nitrite Negative Ur Leukocyte Esterase Negative Urine RBC 0-2 Urine WBC 0-5 Ur Squamous Epith Cells 0-2 Urine Bacteria None Seen Hyaline Casts 0-2 Urine Opiates Screen Not Detected Ur Buprenorphine Scrn Not Detected Ur Oxycodone Screen Positive H Urine Methadone Screen Not Detected Urine Fentanyl Screen Not Detected Ur Barbiturates Screen Not Detected Ur Phencyclidine Scrn Not Detected Ur Amphetamines Screen Not Detected U Benzodiazepines Scrn Not Detected Urine Cocaine Screen Not Detected U Marijuana (THC) Screen Not Detected Influenza Type A (PCR) NEGATIVE Influenza Type B (PCR) NEGATIVE RSV RNA Qual (PCR) NEGATIVE SARS-CoV-2 RNA (RT-PCR) NEGATIVE 12/21/23 12/22/23 23:47 05:06 MCV 87.6 MCH 27.4 MCHC 31.3 RDW 14.3 Plt Count 151 L MPV 10.9 Immature Gran % (Auto) 0.7 H Neut % (Auto) 84.4 H Lymph % (Auto) 6.3 L [place] % (Auto) 8.3 Eos % (Auto) 0.0 Baso % (Auto) 0.3 Lymph # (Auto) 1.1 L [place] # (Auto) 1.5 H Eos # (Auto) 0.0 Baso # (Auto) 0.1 Abs Immat Gran (auto) 0.12 H Absolute Neuts (auto) 14.9 H Absolute Nucleated RBC 0.000 Nucleated RBC % (auto) 0.0 PT INR APTT Anion Gap 13 Estim Creat Clear Calc 52.9 Estimated GFR 45 POC Glucose 128 H 166 H Random Glucose 190 H Lactic Acid Calcium 9.3 Total Bilirubin Direct Bilirubin AST ALT Alkaline Phosphatase Total Protein Albumin Urine Color Urine Appearance Urine pH Ur Specific [place] Urine Protein Urine Glucose (UA) Urine Ketones Urine Blood Urine Nitrite Ur Leukocyte Esterase Urine RBC Urine WBC Ur Squamous Epith Cells Urine Bacteria Hyaline Casts Urine Opiates Screen Ur Buprenorphine Scrn Ur Oxycodone Screen Urine Methadone Screen Urine Fentanyl Screen Ur Barbiturates Screen Ur Phencyclidine Scrn Ur Amphetamines Screen U Benzodiazepines Scrn Urine Cocaine Screen U Marijuana (THC) Screen Influenza Type A (PCR) Influenza Type B (PCR) RSV RNA Qual (PCR) SARS-CoV-2 RNA (RT-PCR) Assessment and Plan (1) Hallucinations, visual: Status: Acute (2) Delirium: Status: Acute (3) Sepsis: Status: Acute (4) Fever: Status: Acute (5) Toxic metabolic encephalopathy: Status: Acute Plan This is a 63-year-old female with pertinent history of mood disorder, insulin- dependent diabetes mellitus, SHANNAN, COPD not on home oxygen, gastroesophageal reflux disease, tubular fracture of left lower extremity 11/09/2023 with OR[facility] at [facility] who presents to the emergency department from nursing facility for evaluation of altered mentation. # Sepsis due to possible Meningitis vs LLE cellulitis complicated with acute metabolic encephalopathy Pending cultures To check LP later today by ED provider ( postponed as patient received Lovenox) Continue Vancomycin Start IV Ceftriaxone and Ampicillin ID evaluation IVF IV and DC Tylenol for fever Close monitoring # Paranoia in a patient with mood disorder Consulting Psychiatry to optimize medications # Insulin-dependent diabetes mellitus with hyperglycemia:Initiating Accu-Cheks with sliding scale insulin every 6 hours # COPD: No exacerbation during admission. Continue home inhalers # Gastroesophageal reflux disease: On PPI # Tibia/fibular fracture status post ORIF, to do PT once medically stable DVT prophylaxis: SCDs Full code The patient will need overnight stay for further work up including likely LP and to continue IV antibiotics pending specialist evaluation which is not possible in a lesser acute setting. Quality Stroke Does the patient have a stroke diagnosis?: No VTE Prior VTE?: No VTE Risk Level:: Medical - moderate - high VTE Device Contraindication: Treatment Not Indicated VTE Drug Contraindication: N/A - Med Ordered
[2023-12-22 11:36] LABS: Glucose, Whole Blood 171 mg/dL (60-115)
[2023-12-22] MEDS: Insulin Lispro 100 UNIT/ML 3 ML VIAL SUBCUT (11:42)
--- NOTE | 2023-12-22 11:52 | PC.NURSE ---
Spoke to inpatient Dr. Amaya about patient's current condition and plan of care. Fever persists at 102, at bedside asking about LP. Patient to get LP this afternoon since she received Lovonox shot last night, then will be admitted upstairs Med/Tele. Will come down to speak with . Resp Viral Panel to be ordered & collected. ID consult place by provider.
--- NOTE | 2023-12-22 13:31 | PC.NURSE ---
Attempted to place second IV line, patient uncooperative, pulling arm. Patient attempting to get OOB, redirected to lie back down. Patient does not tolerate the rapid cooling temp option, moderate cooling option continues to run.
--- NOTE | 2023-12-22 13:38 | PC.NURSE ---
Patient continues to try to get OOB, provider made aware.
[2023-12-22 13:45] LABS: Adenovirus PCR Not Detected (Not Detect.); Bordetella parapertussis PCR Not Detected (Not Detect.); Bordetella pertussis PCR Not Detected (Not Detect.); Chlamydia pneumoniae PCR Not Detected (Not Detect.); Coronavirus 229E PCR Not Detected (Not Detect.); Coronavirus HKU1 PCR Not Detected (Not Detect.); Coronavirus NL63 PCR Not Detected (Not Detect.); Coronavirus OC43 PCR Not Detected (Not Detect.); Human metapneumovirus PCR Not Detected (Not Detect.); Influenza A PCR Not Detected (Not Detect.); Influenza B PCR Not Detected (Not Detect.); Mycoplasma pneumoniae PCR Not Detected (Not Detect.); Parainfluenza 1 PCR Not Detected (Not Detect.); Parainfluenza 2 PCR Not Detected (Not Detect.); Parainfluenza 3 PCR Not Detected (Not Detect.); Parainfluenza 4 PCR Not Detected (Not Detect.); RSV PCR Not Detected (Not Detect.); Rhino/Enterovirus PCR Not Detected (Not Detect.)
[2023-12-22 13:50] LABS: SARS-CoV-2 PCR Not Detected (Not Detect.)
[2023-12-22] MEDS: OLANZapine 10 MG VIAL 5 MG IM ×2 (14:07→14:55)
--- NOTE | 2023-12-22 14:10 | PC.NURSE ---
Provider at bedside, patient continues to fight staff, remove her own clothing, attempt to get OOB. Concern regarding need to lie still & recover from upcoming LP discussed, need for additional IV line and kenny also mentioned. Provider order 1x 5mg IM Zyprexa IM. Patient is usually on many PO psych meds, currently held. 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 ICU to review chart.
--- NOTE | 2023-12-22 15:02 | PC.NURSE ---
Proivder again at bedside, patient attempting to get OOB, yelling out in Ivorian incomprehensibly, Removed IV, Tele leads, purewick, trying to climb OOB via tele wires. Provider Dr. Russell verbally ordered okay to give PRN IM Zyprexa and bilat soft wrist restaints. Marvin Vazquez at bedside with Flip RN to assist in restraining patient. No seizure pads available, but blankets taped to siderails to prevent climbing/injury to patient. Cooling blanket to be repplied, Taylor to attempt IV access.
[2023-12-22] MEDS: Ketorolac Tromethamine 30 MG/ML VIAL IVPUSH (15:21)
[2023-12-22] MEDS: cefEPime HCl 2 GM in 0.9 % Sodium Chloride 50 ML IV ×2 (15:21→23:17)
--- NOTE | 2023-12-22 15:59 | PC.NURSE ---
Patient now more settled in bed, intermittently pulling on restraints. Cooling blanket remains on, fever persists, monitored through rectal probe. IV toradol and tylenol given per MAR as IV access has been reestablished. 20 R Hand, wrapped with gauze for additional protection. Per Provider, okay to given PRN IV ativan, medicated per JUL.
[2023-12-22 16:20] LABS: VBG Base Excess -6.7 mmol/L; VBG HCO3 15 mmol/L (22-26); VBG pCO2 22 mmHg; VBG pH 7.44 (7.32-7.43); VBG pO2 128 mmHg
[2023-12-22 16:20] LABS: Venous Blood Gas Refer to POC result
[2023-12-22 16:41] LABS: Anion Gap 16 (12-20); Blood Urea Nitrogen 14 mg/dL (9-16); C Reactive Protein 25.16 mg/dL (< or = 0.50); Calcium 9.7 mg/dL (8.4-10.2); Carbon Dioxide 17 mmol/L (22-29); Chloride 110 mmol/L (96-108); Estimated Glomerular Filt Rate 56; Glucose Random 110 mg/dL (60-115); Lactate Dehydrogenase 288 U/L (122-220); Potassium 3.7 mmol/L (3.3-5.1); Sodium 139 mmol/L (135-145)
--- NOTE | 2023-12-22 17:33 | PC.NURSE ---
Patient currently had [facility] bed. Spoke to admitting providerJose Luis regarding whether to admit patient upstairs and wait for LP tomorrow d/t need of IR procedure and sedation, provider relays that it is ED provider's call. Dr. Mesa ED spoke with patient's , feels that sedation level is appropiate to attempt at bedside now. Also spoke to Jose Luis about need for kenny, earlier order was canceled. Dr. Amaya confirmed Kenny can be placed with nursing feels she is sedate enough to tolerate procedure, will place order when kenny is successful. 16F temp sensing kenny placed, waiting for provider to place new order. Patient continues to have fever, HR better, VS documented.
[2023-12-22 17:42] LABS: Glucose, Whole Blood 112 mg/dL (60-115)
--- NOTE | 2023-12-22 18:32 | PC.NURSE ---
Upon initial assessment, Dr. Mesa noticed spinal stimulator on patient's imaging, patient taken to xray for additional images for location of stimulator for LP. Patient tolerated xrays mildly well, intermittent arm flailing. Dr. Mesa currently attempting bedside LP. Plan for patient to go upstairs med/tele bed still in place.
--- NOTE | 2023-12-22 18:47 | PC.NURSE ---
Pt being prepared for transport up to floor room.
--- NOTE | 2023-12-22 18:52 | PC.NURSE ---
Dr. Mesa attempt bedside LP x 3, patient did not tolerate, patient going up to med/tele now.
--- NOTE | 2023-12-22 18:57 | PC.NURSE ---
1745 abx delayed d/t emergent imaging/bedside LP
[2023-12-22] MEDS: Naloxone HCl 0.4 MG/ML VIAL IVPUSH (20:37)
--- NOTE | 2023-12-22 20:38 | P.PNCC_ITS ---
Critical Care Event Note Summary Date of Service: 12/22/23 <TAHIRA Underwood - Last Filed: 12/23/23 01:11> Code activated: No <TAHIRA Underwood - Last Filed: 12/23/23 01:11> Narrative: This case had a high probability of a clinically significant, sudden, or life threatening deterioration of this patient's condition which required my full and direct attention, intervention and personal management. <TAHIRA Underwood - Last Filed: 12/23/23 01:11> Critical Care Time (minutes): 45 <TAHIRA Underwood - Last Filed: 12/23/23 01:11> Comment: Asked to evaluate the patient for possible ICU co-management or transfer VSS Somnolent, pinpoint pupils Bilat thick neck iii/vi systolic murmur LLSB with clear S1 and S2 Lungs CTA Abdomen soft positive BS LL Ext linear fibula wound with sourounding erythema, hotness c/w cellulitis 2+ pulses bilateral upper and lower ext Labs reviewed remarkable for WBC 17 k Patient takes narcotics on a daily basis, when she does not she gets agresive, angry and agitated (according to her ). Yesterday she was like this in the ED and received many doses of Zyprexa, Haldol, Ativan. She did c/o headache but suffers from chronic migraines. Has a Fever and a red LLExt as she had recent surgery and was seen at [facility] due to possible wound necrosis which was ruled out. For the past 3 day she had low grade fever, red L L Ext and malaise. Currently not septic or in Shock however early SIRS due to fever, WBC > 12 and eminent Celullitis LLExt Doubt Meningitis No Co2 retention VBG normal Some response with Narcan 0.4mg IV x 1 get better IV access, AVOID sedative agents which can cause respiratory suppresion (opioids are ok for pain control and distress) No ICU need at this point patient is Hemodinamically stable; mantaining her own airway, she is not hypotensive, tachycardic, tachypnic or hypoxic. Fever control with cooling blanket, Tylenol and ICE; can use Toradol as there is no true allergy to NSAIDS recommend Idalia NEVILLE and Dayami Case discussed with Dr Curtis and Dr Rivero Total Critical Care time eval 45 min <TAHIRA Underwood - Last Filed: 12/23/23 01:11> Asked to evaluate the patient for possible ICU co-management or transfer VSS Somnolent, pinpoint pupils Bilat thick neck iii/vi systolic murmur LLSB with clear S1 and S2 Lungs CTA Abdomen soft positive BS LL Ext linear fibula wound with sourounding erythema, hotness c/w cellulitis 2+ pulses bilateral upper and lower ext Labs reviewed remarkable for WBC 17 k Patient takes narcotics on a daily basis, when she does not she gets agresive, angry and agitated (according to her ). Yesterday she was like this in the ED and received many doses of Zyprexa, Haldol, Ativan. She did c/o headache but suffers from chronic migraines. Has a Fever and a red LLExt as she had recent surgery and was seen at [facility] due to possible wound necrosis which was ruled out. For the past 3 day she had low grade fever, red L L Ext and malaise. Currently not septic or in Shock however early SIRS due to fever, WBC > 12 and eminent Celullitis LLExt No Co2 retention VBG normal Some response with Narcan 0.4mg IV x 1 get better IV access, AVOID sedative agents which can cause respiratory suppresion (opioids are ok for pain control and distress) No ICU need at this point patient is Hemodinamically stable; mantaining her own airway, she is not hypotensive, tachycardic, tachypnic or hypoxic. Fever control with cooling blanket, Tylenol and ICE; can use Toradol as there is no true allergy to NSAIDS recommend ECHO, Vanco and Zosyn Case discussed with Dr Curtis and Dr Rivero Total Critical Care time eval 45 min <Beatriz Curtis MD - Last Filed: 12/23/23 07:41>
[2023-12-22 22:03] LABS: Vancomycin Random 18.4 mcg/mL (15-20)
[2023-12-22] MEDS: vancomycin HCL 750 MG in 0.9 % Sodium Chloride 250 ML 265 MG IV (22:04)
[2023-12-22 22:49] LABS: Erythrocyte Sedimentation Rate 74 MM/HR (0-20)
[2023-12-23] VITALS (13 sets, daily range): BP systolic 134–181; BP diastolic 66–107; PULSE 97–114; RESP 19–22; TEMP 36.2–39.4; O2SAT 94–100
[2023-12-23] MEDS: Ampicillin Sodium 2 GM in 0.9 % Sodium Chloride 100 ML IV ×4 (00:07→13:05)
[2023-12-23] MEDS: Acetaminophen Supp 650 MG SUPP.RECT PR ×3 (00:21→18:03)
[2023-12-23 00:33] LABS: Glucose, Whole Blood 73 mg/dL (60-115)
[2023-12-23] MEDS: LORazepam 2 MG/ML VIAL 1 MG IVPUSH ×4 (01:47→16:23)
[2023-12-23] MEDS: Ketorolac Tromethamine 15 MG/ML VIAL IVPUSH (01:59)
[2023-12-23 03:04] LABS: Glucose, Whole Blood 82 mg/dL (60-115)
--- NOTE | 2023-12-23 04:17 | PC.NURSE ---
pt arrived to unit from ED at approx 191. Non behavioral restraints in place to bilateral wrists. Cooling blanket at bedside if needed. T 99.7 rectally
--- NOTE | 2023-12-23 05:20 | PC.NURSE ---
T 102.9 Rectally. medicated with tylenol supp, Prn toradol for elevated temp both without result, Temp remains elevated. placed on cooling blanket @ 0230 with core temp 103.3 noted. Core temp at 0515 100.1 increased agitation and restlessness due to cooling blanket noted. previously medicated with ativan 1mg IV with minimal effect noted. MD at bedside several times throughout the night.
[2023-12-23 05:46] LABS: Glucose, Whole Blood 95 mg/dL (60-115)
[2023-12-23] MEDS: cefEPime HCl 2 GM in 0.9 % Sodium Chloride 50 ML IV (06:22)
[2023-12-23 07:37] LABS: Hematocrit 32.9 % (37.0-47.0); Hemoglobin 10.1 g/dl (12.0-16.0); Mean Corpuscular HGB Conc 30.7 g/dl (31.0-35.0); Mean Corpuscular Hemoglobin 27.1 pg (27.0-33.0); Mean Corpuscular Volume 88.2 fL (80.0-98.0); Mean Platelet Volume 12.2 fL (9.4-12.3); Platelet Count 132 X10*3/uL (160-400); Red Blood Count 3.73 X10*6/uL (4.20-5.50); White Blood Count 14.8 X10*3/uL (4.8-10.8)
[2023-12-23 07:48] LABS: Vancomycin Random 18.9 mcg/mL (15-20)
[2023-12-23 08:06] LABS: Anion Gap 15 (12-20); Blood Urea Nitrogen 19 mg/dL (9-16); Calcium 9.1 mg/dL (8.4-10.2); Carbon Dioxide 16 mmol/L (22-29); Chloride 113 mmol/L (96-108); Creatinine Clr Calc Pharmacy 60.9; Estimated Glomerular Filt Rate 53; Glucose Random 116 mg/dL (60-115); Potassium 3.6 mmol/L (3.3-5.1); Sodium 140 mmol/L (135-145)
--- NOTE | 2023-12-23 08:18 | HE.PHANOTE ---
RE VANCO DOSE DECREASED YESTERDAY BUT TROUGH STILL INCREASING. 18.9 TODAY WITH RENAL FUNCTION STABLE. WILL CHANGE TO 1250 Q24 DOSING. INSIGHT STATES THIS SHOULD GIVE AUC 422 AND TROUGH 11.9 BUT WITH PATIENT RUNNING HIGHER THAN ANTICIPATED WILL PROBABLY SEE TROUGH CLOSER TO 19 WITH NEXT LEVEL 12/23 @2100. MAY STILL NEED TO REDUCE DOSE FURTHER.
[2023-12-23 08:26] LABS: Glucose, Whole Blood 132 mg/dL (60-115)
--- NOTE | 2023-12-23 08:54 | MHC.CM.PN ---
Patient is a STR Resident at [facility] and a [facility] bed hold there.Returning [facility] to [facility] is the tentative plan; CM has initiated and will follow for dc planning. [facility] is faxing over a copy of Patient's HCP.
[2023-12-23 12:01] LABS: Glucose, Whole Blood 111 mg/dL (60-115)
[2023-12-23 12:16] LABS: CSF Appearance Clear, Colorless
[2023-12-23 12:17] LABS: CSF Tube # 1
[2023-12-23 12:25] LABS: Glucose CSF 82 mg/dL; Total Protein CSF 40.6 mg/dL (15-45)
--- NOTE | 2023-12-23 12:35 | P.PNIM_ITS ---
Subjective Subjective Date of Service: 12/23/23 Interval History: seen and evaluated this morning More alert and interactive but overall restless and disoriented continues to spike fever , less than before LP negative for Brain infx no other overnight events Review of Systems Review of Systems: Yes all other systems are reviewed and are negative Physical Exam 2 Vital Signs: Vital Signs: Last Vital Signs Temp 97.2 F 12/23/23 11:59 Pulse 105 H 12/23/23 11:59 Resp 19 12/23/23 11:59 BP 163/78 H 12/23/23 11:59 Pulse Ox 98 12/23/23 11:59 O2 Del Method Room Air 12/23/23 11:59 BMI result Body Mass Index 34.1 Const: Other: Constitutional : altered, restless Neck : Normal inspection, Supple Cardiovascular : RRR, no JVP, no lower extremity edema Respiratory : good bilateral air entry, no crackles, wheezes or rhonchi Gastrointestinal: soft, lax, Normal bowel sounds, Non tender Skin : Warm, Dry, LLE mild warmth but no erythema or tenderness around the surgical area, no drainage. Neurological : alert, disoriented, follow some commands, restless Objective Data Active Medications Acetaminophen (Acetaminophen Supp 650 Mg Supp.Rect) 650 mg OH Q6H PRN PRN Reason: Pain, Mild (Pain Scale 1-3), fever or headache Last Admin: 12/23/23 09:57 Dose: 650 mg Documented By: HUGH Albuterol Sulfate (Albuterol Sulfate (0.083%) 2.5 Mg/3 Ml Vial.Neb) 2.5 mg INHALE Q4H PRN PRN Reason: Shortness of Breath/Wheezing Calcium Carbonate (Calcium Carbonate 750 Mg Tab.Chew) 750 mg PO Q4H PRN PRN Reason: Heartburn Glucose (Glucose Gel 15 Gm Gel..Gram.) 15 gm PO Q15M PRN; Protocol PRN Reason: per Hypoglycemia Standing Ord. Dextrose (D10) 250 mls @ 750 mls/hr IV Q15M PRN; Protocol PRN Reason: per Hypoglycemia Standing Ord. Cefepime HCl 2 gm/ Sodium (Chloride) 50 mls @ 100 mls/hr IV Q8H [place] Last Infusion: 12/23/23 06:52 Dose: Infused Documented By: MAYA Ampicillin Sodium 2 gm/ Sodium (Chloride) 100 mls @ 200 mls/hr IV Q4H [facility] Last Infusion: 12/23/23 10:33 Dose: Infused Documented By: HUGH Vancomycin HCl 1,250 mg/ (Sodium Chloride) 250 mls @ 166.667 mls/hr IV Q24H [place] Insulin Human Lispro (Insulin Lispro 100 Unit/Ml 3 Ml Vial) 0 unit SUBCUT Q6H [facility]; Protocol Last Admin: 12/23/23 12:08 Dose: Not Given Documented By: HUGH Non-Admin Reason: No Insulin Coverage Lorazepam (Lorazepam 2 Mg/Ml Vial) 1 mg IVPUSH Q6H PRN PRN Reason: Restlessness Last Admin: 12/23/23 10:31 Dose: 1 mg Documented By: HUGH Magnesium Hydroxide (Milk Of Magnesia 30 Ml Oral.Susp) 30 ml PO DAILY PRN PRN Reason: Constipation Melatonin (Melatonin 3 Mg Tablet) 6 mg PO BEDTIME PRN PRN Reason: Insomnia Olanzapine (Olanzapine 10 Mg Vial) 5 mg IM ONCE PRN PRN Reason: anxiety/restlessness Last Admin: 12/22/23 14:55 Dose: 5 mg Documented By: MIKEL Ondansetron HCl (Ondansetron Hcl 4 Mg/2 Ml Vial) 4 mg IVPUSH Q8H PRN PRN Reason: Nausea and Vomiting Pharmacy Consult (Consult Rx Vancomycin Dosing) 1 each MISCELLANE DAILY PRN PRN Reason: Consult order Sodium Chloride (0.9 % Sodium Chloride Flush 3 Ml Syringe) 3 ml IVFLUSH QSHIFT [facility] Last Admin: 12/23/23 10:32 Dose: Not Given Documented By: HUGH Non-Admin Reason: IV Running Labs 12/23/23 06:52 12/23/23 06:52 Labs: Laboratory Results - last 24 hr 12/22/23 12/22/23 12/22/23 16:13 17:38 21:37 MCV MCH MCHC RDW Plt Count MPV Absolute Nucleated RBC Nucleated RBC % (auto) ESR 74 H VBG pH 7.44 H VBG pCO2 22 VBG pO2 128 VBG HCO3 15 L VBG O2 Saturation 99.0 VBG Base Excess -6.7 Anion Gap 16 Estim Creat Clear Calc 64.0 Estimated GFR 56 POC Glucose 112 Random Glucose 110 Calcium 9.7 Lactate Dehydrogenase 288 H C-Reactive Protein 25.16 H CSF Tube Number CSF Appearance (b) CSF Glucose CSF Total Protein Random Vancomycin 18.4 Respiratory Panel Leslie Adenovirus (Rapid PCR) B.pert (TEM-PCR) B.parapertussis DNA PCR C. pneumoniae DNA (PCR) Coronavirus OC43 (PCR) Coronavirus HKU1 (PCR) Coronavirus 229E (PCR) Coronavirus NL63 (PCR) Human Metapneumovir PCR Influenza A (RT-PCR) Influenza B (RT-PCR) M. pneumoniae (PCR) Parainfluenza 1 (PCR) Parainfluenza 2 (PCR) Parainfluenza 3 (PCR) Parainfluenza 4 (PCR) RSV (PCR) Entero/Rhino (PCR) SARS-CoV-2 RNA (RT-PCR) 12/22/23 12/23/23 12/23/23 Unknown 00:16 02:59 MCV MCH MCHC RDW Plt Count MPV Absolute Nucleated RBC Nucleated RBC % (auto) ESR VBG pH VBG pCO2 VBG pO2 VBG HCO3 VBG O2 Saturation VBG Base Excess Anion Gap Estim Creat Clear Calc Estimated GFR POC Glucose 73 82 Random Glucose Calcium Lactate Dehydrogenase C-Reactive Protein CSF Tube Number CSF Appearance (b) CSF Glucose CSF Total Protein Random Vancomycin Respiratory Panel Leslie See Note Adenovirus (Rapid PCR) Not Detected B.pert (TEM-PCR) Not Detected B.parapertussis DNA PCR Not Detected C. pneumoniae DNA (PCR) Not Detected Coronavirus OC43 (PCR) Not Detected Coronavirus HKU1 (PCR) Not Detected Coronavirus 229E (PCR) Not Detected Coronavirus NL63 (PCR) Not Detected Human Metapneumovir PCR Not Detected Influenza A (RT-PCR) Not Detected Influenza B (RT-PCR) Not Detected M. pneumoniae (PCR) Not Detected Parainfluenza 1 (PCR) Not Detected Parainfluenza 2 (PCR) Not Detected Parainfluenza 3 (PCR) Not Detected Parainfluenza 4 (PCR) Not Detected RSV (PCR) Not Detected Entero/Rhino (PCR) Not Detected SARS-CoV-2 RNA (RT-PCR) Not Detected 12/23/23 12/23/23 12/23/23 05:40 06:52 08:16 MCV 88.2 MCH 27.1 MCHC 30.7 L RDW 14.0 Plt Count 132 L MPV 12.2 Absolute Nucleated RBC 0.000 Nucleated RBC % (auto) 0.0 ESR VBG pH VBG pCO2 VBG pO2 VBG HCO3 VBG O2 Saturation VBG Base Excess Anion Gap 15 Estim Creat Clear Calc 60.9 Estimated GFR 53 POC Glucose 95 132 H Random Glucose 116 H Calcium 9.1 D Lactate Dehydrogenase C-Reactive Protein CSF Tube Number CSF Appearance (b) CSF Glucose CSF Total Protein Random Vancomycin 18.9 Respiratory Panel Leslie Adenovirus (Rapid PCR) B.pert (TEM-PCR) B.parapertussis DNA PCR C. pneumoniae DNA (PCR) Coronavirus OC43 (PCR) Coronavirus HKU1 (PCR) Coronavirus 229E (PCR) Coronavirus NL63 (PCR) Human Metapneumovir PCR Influenza A (RT-PCR) Influenza B (RT-PCR) M. pneumoniae (PCR) Parainfluenza 1 (PCR) Parainfluenza 2 (PCR) Parainfluenza 3 (PCR) Parainfluenza 4 (PCR) RSV (PCR) Entero/Rhino (PCR) SARS-CoV-2 RNA (RT-PCR) 12/23/23 12/23/23 11:58 Unknown MCV MCH MCHC RDW Plt Count MPV Absolute Nucleated RBC Nucleated RBC % (auto) ESR VBG pH VBG pCO2 VBG pO2 VBG HCO3 VBG O2 Saturation VBG Base Excess Anion Gap Estim Creat Clear Calc Estimated GFR POC Glucose 111 Random Glucose Calcium Lactate Dehydrogenase C-Reactive Protein CSF Tube Number 1 CSF Appearance (b) Clear, Colorless CSF Glucose 82 CSF Total Protein 40.6 Random Vancomycin Respiratory Panel Leslie Adenovirus (Rapid PCR) B.pert (TEM-PCR) B.parapertussis DNA PCR C. pneumoniae DNA (PCR) Coronavirus OC43 (PCR) Coronavirus HKU1 (PCR) Coronavirus 229E (PCR) Coronavirus NL63 (PCR) Human Metapneumovir PCR Influenza A (RT-PCR) Influenza B (RT-PCR) M. pneumoniae (PCR) Parainfluenza 1 (PCR) Parainfluenza 2 (PCR) Parainfluenza 3 (PCR) Parainfluenza 4 (PCR) RSV (PCR) Entero/Rhino (PCR) SARS-CoV-2 RNA (RT-PCR) Microbiology Microbiology Results: Microbiology 12/21/23 19:43 Blood Culture - Preliminary Blood - Venous No growth after 24 hours. 12/21/23 19:38 Blood Culture - Preliminary Blood - Venous No growth after 24 hours. Assessment and Plan (1) Toxic metabolic encephalopathy: Status: Acute (2) Fever: Status: Acute (3) Hallucinations, visual: Status: Acute Plan This is a 63-year-old female with pertinent history of mood disorder, insulin- dependent diabetes mellitus, SHANNAN, COPD not on home oxygen, gastroesophageal reflux disease, tubular fracture of left lower extremity 11/09/2023 with [facility] at [facility] who presents to the emergency department from nursing facility for evaluation of altered mentation. # Acute toxic metabolic encephalopathy 2/2 Possible Sepsis due to possible LLE cellulitis OR acute Serotonin syndrome Pending cultures CSF analysis negative for infection, pending encephalitis panel On Duloxetine, Trazodone, Bupropion among others that might be causing Serotonin syndrome Continue IV and OH Tylenol for fever with cooling device Pending final cultures DC Vancomycin, Cefepime and Ampicillin ID evaluation, Start Doxycycline and check for Tick borne disease Continue IVF Neurology and Psychiatry consults pending Keep on Tele Check CK, HIV, Hep C load, [place] Close monitoring # Paranoia in a patient with mood disorder Consulting Psychiatry to optimize medications # Insulin-dependent diabetes mellitus with hyperglycemia:Initiating Accu-Cheks with sliding scale insulin every 6 hours # COPD: No exacerbation during admission. Continue home inhalers # Gastroesophageal reflux disease: On PPI # Tibia/fibular fracture status post ORIF, to do PT once medically stable DVT prophylaxis: SCDs Full code The patient will need overnight stay for further work up and treatment with IV antibiotics and Benzodiazepines, pending specialist evaluation which is not possible in a lesser acute setting. Quality Stroke Does the patient have a stroke diagnosis?: No VTE Prior VTE?: No VTE Risk Level:: Medical - moderate - high VTE Device Contraindication: Treatment Not Indicated VTE Drug Contraindication: N/A - Med Ordered
[2023-12-23 12:56] LABS: Appearance CSF CLEAR; CSF Monos 50 %; CSF Tube # 4; Color CSF COLORLESS; Lymphocytes CSF 50 %; Red Blood Cell CSF 0 MM*3; White Blood Cell CSF 1 MM*3
--- NOTE | 2023-12-23 13:11 | P.CNPS_ITS ---
History of Present Illness Date of Service: 12/23/23 Chief Complaint: AMS Reason for Consult: psychosis Requesting physician: Tristin Amaya Discussed with referring provider: Yes Sources of Information: patient interviewed and chart reviewed HPI Narrative: pt seen at bedside; pt had just had sedation for a procedure so was unable to participate in interview; this write spoke with who said that before the sedation bijan was more herself; he says she was clearer and more coherent; she recognized him easily today whereas she could not recognize him yesterday. Past Psychiatric History: hx mood disorder Medical Evaluation Reviewed: Yes discussed with Dr Amaya- GAURAV longla; no spesis; suspect acute serotonin sydrome [facility] Medical History Diabetes Hepatitis GERD (gastroesophageal reflux disease) Neuropathy Fibromyalgia Depression Sleep apnea Asthma Elevated cholesterol HTN (hypertension) Surgical History History of esophagogastroduodenoscopy (EGD) H/O colonoscopy S/P insertion of spinal cord stimulator Hx of excision of mass Hx of hernia repair Diagnostics Vital Signs (24Hr): Vital Signs - 24 hr 12/22/23 13:57 12/22/23 14:00 12/22/23 14:10 Temperature 102.5 F H 101.9 F H Pulse Rate 115 H 120 H 110 H Respiratory Rate 28 H 34 H 28 H Blood Pressure 172/62 H 172/62 H Pulse Oximetry Oxygen Delivery Method 12/22/23 14:55 12/22/23 15:10 12/22/23 15:16 Temperature 100.1 F Pulse Rate 116 H 116 H Respiratory Rate 30 H 28 H 19 Blood Pressure 177/90 H 198/84 H 177/90 H Pulse Oximetry 96 98 Oxygen Delivery Method Room Air Room Air 12/22/23 15:25 12/22/23 15:55 12/22/23 18:12 Temperature 101.4 F H 101.5 F H Pulse Rate 115 H 113 H 96 Respiratory Rate 25 H 28 H 21 H Blood Pressure 189/64 H 160/69 H 109/56 L Pulse Oximetry 96 98 99 Oxygen Delivery Method Room Air Room Air 12/22/23 19:07 12/23/23 00:00 12/23/23 00:15 Temperature 97.2 F 98.3 F 102.9 F H Pulse Rate 94 113 H Respiratory Rate 20 20 Blood Pressure 145/58 H 174/81 H Pulse Oximetry 94 96 Oxygen Delivery Method Room Air Room Air 12/23/23 01:21 12/23/23 04:09 12/23/23 05:18 Temperature 102.9 F H 101.4 F H 100.1 F Pulse Rate 114 H Respiratory Rate 22 H Blood Pressure 173/70 H Pulse Oximetry 94 Oxygen Delivery Method Room Air 12/23/23 06:27 12/23/23 07:49 12/23/23 11:59 Temperature 99.9 F 97.8 F 97.2 F Pulse Rate 113 H 105 H Respiratory Rate 20 19 Blood Pressure 148/71 H 163/78 H Pulse Oximetry 100 98 Oxygen Delivery Method Room Air Room Air BMI result Body Mass Index 34.1 Labs 12/23/23 06:52 12/23/23 06:52 Labs: Laboratory Results - last 48 hr 12/21/23 12/21/23 12/21/23 19:38 20:45 22:29 WBC 8.1 RBC 3.52 L Hgb 9.5 L Hct 30.7 L MCV 87.2 MCH 27.0 MCHC 30.9 L RDW 14.1 Plt Count 168 MPV 10.7 Immature Gran % (Auto) 0.4 Neut % (Auto) 83.2 H Lymph % (Auto) 11.0 L Hart % (Auto) 4.6 Eos % (Auto) 0.4 Baso % (Auto) 0.4 Lymph # (Auto) 0.9 L Hart # (Auto) 0.4 Eos # (Auto) 0.0 Baso # (Auto) 0.0 Abs Immat Gran (auto) 0.03 Absolute Neuts (auto) 6.7 Absolute Nucleated RBC 0.000 Nucleated RBC % (auto) 0.0 ESR PT 13.5 H INR 1.1 APTT 30.4 VBG pH VBG pCO2 VBG pO2 VBG HCO3 VBG O2 Saturation VBG Base Excess Sodium 140 Potassium 4.6 Chloride 109 H Carbon Dioxide 24 Anion Gap 12 BUN 18 H Creatinine 1.21 Estim Creat Clear Calc 52.9 Estimated GFR 45 POC Glucose 130 H Random Glucose 189 H Lactic Acid 0.9 Calcium 9.5 D Total Bilirubin 0.3 Direct Bilirubin 0.1 AST 20 ALT 11 Alkaline Phosphatase 78 Lactate Dehydrogenase C-Reactive Protein Total Protein 7.6 Albumin 4.1 Urine Color Yellow Urine Appearance Clear Urine pH 8.5 Ur Specific Heaters 1.015 Urine Protein Negative Urine Glucose (UA) Negative Urine Ketones Negative Urine Blood Negative Urine Nitrite Negative Ur Leukocyte Esterase Negative Urine RBC 0-2 Urine WBC 0-5 Ur Squamous Epith Cells 0-2 Urine Bacteria None Seen Hyaline Casts 0-2 CSF Tube Number CSF Volume CSF Appearance CSF Color CSF WBC CSF RBC CSF Lymphocytes CSF Monocytes % CSF Appearance (b) CSF Glucose CSF Total Protein Random Vancomycin Urine Opiates Screen Not Detected Ur Buprenorphine Scrn Not Detected Ur Oxycodone Screen Positive H Urine Methadone Screen Not Detected Urine Fentanyl Screen Not Detected Ur Barbiturates Screen Not Detected Ur Phencyclidine Scrn Not Detected Ur Amphetamines Screen Not Detected U Benzodiazepines Scrn Not Detected Urine Cocaine Screen Not Detected U Marijuana (THC) Screen Not Detected Respiratory Panel Leslie Adenovirus (Rapid PCR) B.pert (TEM-PCR) B.parapertussis DNA PCR C. pneumoniae DNA (PCR) Coronavirus OC43 (PCR) Coronavirus HKU1 (PCR) Coronavirus 229E (PCR) Coronavirus NL63 (PCR) Human Metapneumovir PCR Influenza A (RT-PCR) Influenza Type A (PCR) NEGATIVE Influenza B (RT-PCR) Influenza Type B (PCR) NEGATIVE M. pneumoniae (PCR) Parainfluenza 1 (PCR) Parainfluenza 2 (PCR) Parainfluenza 3 (PCR) Parainfluenza 4 (PCR) RSV (PCR) RSV RNA Qual (PCR) NEGATIVE Entero/Rhino (PCR) SARS-CoV-2 RNA (RT-PCR) NEGATIVE 12/21/23 12/22/23 12/22/23 23:47 05:06 11:32 WBC 17.7 H RBC 3.87 L Hgb 10.6 L Hct 33.9 L MCV 87.6 MCH 27.4 MCHC 31.3 RDW 14.3 Plt Count 151 L MPV 10.9 Immature Gran % (Auto) 0.7 H Neut % (Auto) 84.4 H Lymph % (Auto) 6.3 L Hart % (Auto) 8.3 Eos % (Auto) 0.0 Baso % (Auto) 0.3 Lymph # (Auto) 1.1 L Hart # (Auto) 1.5 H Eos # (Auto) 0.0 Baso # (Auto) 0.1 Abs Immat Gran (auto) 0.12 H Absolute Neuts (auto) 14.9 H Absolute Nucleated RBC 0.000 Nucleated RBC % (auto) 0.0 ESR PT INR APTT VBG pH VBG pCO2 VBG pO2 VBG HCO3 VBG O2 Saturation VBG Base Excess Sodium 140 Potassium 4.0 Chloride 112 H Carbon Dioxide 19 L Anion Gap 13 BUN 15 Creatinine 1.21 Estim Creat Clear Calc 52.9 Estimated GFR 45 POC Glucose 128 H 166 H 171 H Random Glucose 190 H Lactic Acid Calcium 9.3 Total Bilirubin Direct Bilirubin AST ALT Alkaline Phosphatase Lactate Dehydrogenase C-Reactive Protein Total Protein Albumin Urine Color Urine Appearance Urine pH Ur Specific Heaters Urine Protein Urine Glucose (UA) Urine Ketones Urine Blood Urine Nitrite Ur Leukocyte Esterase Urine RBC Urine WBC Ur Squamous Epith Cells Urine Bacteria Hyaline Casts CSF Tube Number CSF Volume CSF Appearance CSF Color CSF WBC CSF RBC CSF Lymphocytes CSF Monocytes % CSF Appearance (b) CSF Glucose CSF Total Protein Random Vancomycin Urine Opiates Screen Ur Buprenorphine Scrn Ur Oxycodone Screen Urine Methadone Screen Urine Fentanyl Screen Ur Barbiturates Screen Ur Phencyclidine Scrn Ur Amphetamines Screen U Benzodiazepines Scrn Urine Cocaine Screen U Marijuana (THC) Screen Respiratory Panel Leslie Adenovirus (Rapid PCR) B.pert (TEM-PCR) B.parapertussis DNA PCR C. pneumoniae DNA (PCR) Coronavirus OC43 (PCR) Coronavirus HKU1 (PCR) Coronavirus 229E (PCR) Coronavirus NL63 (PCR) Human Metapneumovir PCR Influenza A (RT-PCR) Influenza Type A (PCR) Influenza B (RT-PCR) Influenza Type B (PCR) M. pneumoniae (PCR) Parainfluenza 1 (PCR) Parainfluenza 2 (PCR) Parainfluenza 3 (PCR) Parainfluenza 4 (PCR) RSV (PCR) RSV RNA Qual (PCR) Entero/Rhino (PCR) SARS-CoV-2 RNA (RT-PCR) 12/22/23 12/22/23 12/22/23 16:13 17:38 21:37 WBC RBC Hgb Hct MCV MCH MCHC RDW Plt Count MPV Immature Gran % (Auto) Neut % (Auto) Lymph % (Auto) Hart % (Auto) Eos % (Auto) Baso % (Auto) Lymph # (Auto) Hart # (Auto) Eos # (Auto) Baso # (Auto) Abs Immat Gran (auto) Absolute Neuts (auto) Absolute Nucleated RBC Nucleated RBC % (auto) ESR 74 H PT INR APTT VBG pH 7.44 H VBG pCO2 22 VBG pO2 128 VBG HCO3 15 L VBG O2 Saturation 99.0 VBG Base Excess -6.7 Sodium 139 Potassium 3.7 Chloride 110 H Carbon Dioxide 17 L Anion Gap 16 BUN 14 Creatinine 1.00 Estim Creat Clear Calc 64.0 Estimated GFR 56 POC Glucose 112 Random Glucose 110 Lactic Acid Calcium 9.7 Total Bilirubin Direct Bilirubin AST ALT Alkaline Phosphatase Lactate Dehydrogenase 288 H C-Reactive Protein 25.16 H Total Protein Albumin Urine Color Urine Appearance Urine pH Ur Specific Heaters Urine Protein Urine Glucose (UA) Urine Ketones Urine Blood Urine Nitrite Ur Leukocyte Esterase Urine RBC Urine WBC Ur Squamous Epith Cells Urine Bacteria Hyaline Casts CSF Tube Number CSF Volume CSF Appearance CSF Color CSF WBC CSF RBC CSF Lymphocytes CSF Monocytes % CSF Appearance (b) CSF Glucose CSF Total Protein Random Vancomycin 18.4 Urine Opiates Screen Ur Buprenorphine Scrn Ur Oxycodone Screen Urine Methadone Screen Urine Fentanyl Screen Ur Barbiturates Screen Ur Phencyclidine Scrn Ur Amphetamines Screen U Benzodiazepines Scrn Urine Cocaine Screen U Marijuana (THC) Screen Respiratory Panel Leslie Adenovirus (Rapid PCR) B.pert (TEM-PCR) B.parapertussis DNA PCR C. pneumoniae DNA (PCR) Coronavirus OC43 (PCR) Coronavirus HKU1 (PCR) Coronavirus 229E (PCR) Coronavirus NL63 (PCR) Human Metapneumovir PCR Influenza A (RT-PCR) Influenza Type A (PCR) Influenza B (RT-PCR) Influenza Type B (PCR) M. pneumoniae (PCR) Parainfluenza 1 (PCR) Parainfluenza 2 (PCR) Parainfluenza 3 (PCR) Parainfluenza 4 (PCR) RSV (PCR) RSV RNA Qual (PCR) Entero/Rhino (PCR) SARS-CoV-2 RNA (RT-PCR) 12/22/23 12/23/23 12/23/23 Unknown 00:16 02:59 WBC RBC Hgb Hct MCV MCH MCHC RDW Plt Count MPV Immature Gran % (Auto) Neut % (Auto) Lymph % (Auto) Hart % (Auto) Eos % (Auto) Baso % (Auto) Lymph # (Auto) Hart # (Auto) Eos # (Auto) Baso # (Auto) Abs Immat Gran (auto) Absolute Neuts (auto) Absolute Nucleated RBC Nucleated RBC % (auto) ESR PT INR APTT VBG pH VBG pCO2 VBG pO2 VBG HCO3 VBG O2 Saturation VBG Base Excess Sodium Potassium Chloride Carbon Dioxide Anion Gap BUN Creatinine Estim Creat Clear Calc Estimated GFR POC Glucose 73 82 Random Glucose Lactic Acid Calcium Total Bilirubin Direct Bilirubin AST ALT Alkaline Phosphatase Lactate Dehydrogenase C-Reactive Protein Total Protein Albumin Urine Color Urine Appearance Urine pH Ur Specific Heaters Urine Protein Urine Glucose (UA) Urine Ketones Urine Blood Urine Nitrite Ur Leukocyte Esterase Urine RBC Urine WBC Ur Squamous Epith Cells Urine Bacteria Hyaline Casts CSF Tube Number CSF Volume CSF Appearance CSF Color CSF WBC CSF RBC CSF Lymphocytes CSF Monocytes % CSF Appearance (b) CSF Glucose CSF Total Protein Random Vancomycin Urine Opiates Screen Ur Buprenorphine Scrn Ur Oxycodone Screen Urine Methadone Screen Urine Fentanyl Screen Ur Barbiturates Screen Ur Phencyclidine Scrn Ur Amphetamines Screen U Benzodiazepines Scrn Urine Cocaine Screen U Marijuana (THC) Screen Respiratory Panel Leslie See Note Adenovirus (Rapid PCR) Not Detected B.pert (TEM-PCR) Not Detected B.parapertussis DNA PCR Not Detected C. pneumoniae DNA (PCR) Not Detected Coronavirus OC43 (PCR) Not Detected Coronavirus HKU1 (PCR) Not Detected Coronavirus 229E (PCR) Not Detected Coronavirus NL63 (PCR) Not Detected Human Metapneumovir PCR Not Detected Influenza A (RT-PCR) Not Detected Influenza Type A (PCR) Influenza B (RT-PCR) Not Detected Influenza Type B (PCR) M. pneumoniae (PCR) Not Detected Parainfluenza 1 (PCR) Not Detected Parainfluenza 2 (PCR) Not Detected Parainfluenza 3 (PCR) Not Detected Parainfluenza 4 (PCR) Not Detected RSV (PCR) Not Detected RSV RNA Qual (PCR) Entero/Rhino (PCR) Not Detected SARS-CoV-2 RNA (RT-PCR) Not Detected 12/23/23 12/23/23 12/23/23 05:40 06:52 08:16 WBC 14.8 H RBC 3.73 L Hgb 10.1 L Hct 32.9 L MCV 88.2 MCH 27.1 MCHC 30.7 L RDW 14.0 Plt Count 132 L MPV 12.2 Immature Gran % (Auto) Neut % (Auto) Lymph % (Auto) Hart % (Auto) Eos % (Auto) Baso % (Auto) Lymph # (Auto) Hart # (Auto) Eos # (Auto) Baso # (Auto) Abs Immat Gran (auto) Absolute Neuts (auto) Absolute Nucleated RBC 0.000 Nucleated RBC % (auto) 0.0 ESR PT INR APTT VBG pH VBG pCO2 VBG pO2 VBG HCO3 VBG O2 Saturation VBG Base Excess Sodium 140 Potassium 3.6 Chloride 113 H Carbon Dioxide 16 L Anion Gap 15 BUN 19 H Creatinine 1.05 Estim Creat Clear Calc 60.9 Estimated GFR 53 POC Glucose 95 132 H Random Glucose 116 H Lactic Acid Calcium 9.1 D Total Bilirubin Direct Bilirubin AST ALT Alkaline Phosphatase Lactate Dehydrogenase C-Reactive Protein Total Protein Albumin Urine Color Urine Appearance Urine pH Ur Specific Heaters Urine Protein Urine Glucose (UA) Urine Ketones Urine Blood Urine Nitrite Ur Leukocyte Esterase Urine RBC Urine WBC Ur Squamous Epith Cells Urine Bacteria Hyaline Casts CSF Tube Number CSF Volume CSF Appearance CSF Color CSF WBC CSF RBC CSF Lymphocytes CSF Monocytes % CSF Appearance (b) CSF Glucose CSF Total Protein Random Vancomycin 18.9 Urine Opiates Screen Ur Buprenorphine Scrn Ur Oxycodone Screen Urine Methadone Screen Urine Fentanyl Screen Ur Barbiturates Screen Ur Phencyclidine Scrn Ur Amphetamines Screen U Benzodiazepines Scrn Urine Cocaine Screen U Marijuana (THC) Screen Respiratory Panel Leslie Adenovirus (Rapid PCR) B.pert (TEM-PCR) B.parapertussis DNA PCR C. pneumoniae DNA (PCR) Coronavirus OC43 (PCR) Coronavirus HKU1 (PCR) Coronavirus 229E (PCR) Coronavirus NL63 (PCR) Human Metapneumovir PCR Influenza A (RT-PCR) Influenza Type A (PCR) Influenza B (RT-PCR) Influenza Type B (PCR) M. pneumoniae (PCR) Parainfluenza 1 (PCR) Parainfluenza 2 (PCR) Parainfluenza 3 (PCR) Parainfluenza 4 (PCR) RSV (PCR) RSV RNA Qual (PCR) Entero/Rhino (PCR) SARS-CoV-2 RNA (RT-PCR) 12/23/23 12/23/23 12/23/23 11:58 Unknown Unknown WBC RBC Hgb Hct MCV MCH MCHC RDW Plt Count MPV Immature Gran % (Auto) Neut % (Auto) Lymph % (Auto) Hart % (Auto) Eos % (Auto) Baso % (Auto) Lymph # (Auto) Hart # (Auto) Eos # (Auto) Baso # (Auto) Abs Immat Gran (auto) Absolute Neuts (auto) Absolute Nucleated RBC Nucleated RBC % (auto) ESR PT INR APTT VBG pH VBG pCO2 VBG pO2 VBG HCO3 VBG O2 Saturation VBG Base Excess Sodium Potassium Chloride Carbon Dioxide Anion Gap BUN Creatinine Estim Creat Clear Calc Estimated GFR POC Glucose 111 Random Glucose Lactic Acid Calcium Total Bilirubin Direct Bilirubin AST ALT Alkaline Phosphatase Lactate Dehydrogenase C-Reactive Protein Total Protein Albumin Urine Color Urine Appearance Urine pH Ur Specific Heaters Urine Protein Urine Glucose (UA) Urine Ketones Urine Blood Urine Nitrite Ur Leukocyte Esterase Urine RBC Urine WBC Ur Squamous Epith Cells Urine Bacteria Hyaline Casts CSF Tube Number 1 4 CSF Volume 3.0 CSF Appearance CLEAR CSF Color COLORLESS CSF WBC 1 CSF RBC 0 CSF Lymphocytes 50 CSF Monocytes % 50 CSF Appearance (b) Clear, Colorless CSF Glucose 82 CSF Total Protein 40.6 Random Vancomycin Urine Opiates Screen Ur Buprenorphine Scrn Ur Oxycodone Screen Urine Methadone Screen Urine Fentanyl Screen Ur Barbiturates Screen Ur Phencyclidine Scrn Ur Amphetamines Screen U Benzodiazepines Scrn Urine Cocaine Screen U Marijuana (THC) Screen Respiratory Panel Leslie Adenovirus (Rapid PCR) B.pert (TEM-PCR) B.parapertussis DNA PCR C. pneumoniae DNA (PCR) Coronavirus OC43 (PCR) Coronavirus HKU1 (PCR) Coronavirus 229E (PCR) Coronavirus NL63 (PCR) Human Metapneumovir PCR Influenza A (RT-PCR) Influenza Type A (PCR) Influenza B (RT-PCR) Influenza Type B (PCR) M. pneumoniae (PCR) Parainfluenza 1 (PCR) Parainfluenza 2 (PCR) Parainfluenza 3 (PCR) Parainfluenza 4 (PCR) RSV (PCR) RSV RNA Qual (PCR) Entero/Rhino (PCR) SARS-CoV-2 RNA (RT-PCR) Imaging Radiology Impressions: ITS Impressions Tibia/Fibula X-Ray 12/21/23 21:17 IMPRESSION: * No periosteal reaction, cortical erosion, focal osteopenia to suggest osteomyelitis. * Proximal fibular and distal fibular fractures. * Tibial ORIF without evidence of hardware complication. * Posterior soft tissue swelling. Head CT 12/21/23 21:27 IMPRESSION: No acute intracranial pathology. Chest X-Ray 12/21/23 22:20 IMPRESSION: No acute cardiopulmonary disease. Lumbar Spine X-Ray 12/22/23 17:57 IMPRESSION: * Spinal stimulator leads are seen extending superiorly beyond the superior endplate of T10 vertebral body and out of field of view. * Mild spondylosis of the lumbar spine. Mental Status Exam Mental Status Exam Narrative: pt unable to participate in interview Level of Consciousness: Restless Medications Medications Current Medications Acetaminophen (Acetaminophen Supp 650 Mg Supp.Rect) 650 mg DC Q6H PRN PRN Reason: Pain, Mild (Pain Scale 1-3), fever or headache Last Admin: 12/23/23 09:57 Dose: 650 mg Albuterol Sulfate (Albuterol Sulfate (0.083%) 2.5 Mg/3 Ml Vial.Neb) 2.5 mg INHALE Q4H PRN PRN Reason: Shortness of Breath/Wheezing Calcium Carbonate (Calcium Carbonate 750 Mg Tab.Chew) 750 mg PO Q4H PRN PRN Reason: Heartburn Glucose (Glucose Gel 15 Gm Gel..Gram.) 15 gm PO Q15M PRN; Protocol PRN Reason: per Hypoglycemia Standing Ord. Dextrose (D10) 250 mls @ 750 mls/hr IV Q15M PRN; Protocol PRN Reason: per Hypoglycemia Standing Ord. Cefepime HCl 2 gm/ Sodium (Chloride) 50 mls @ 100 mls/hr IV Q8H [facility] Last Infusion: 12/23/23 06:52 Dose: Infused Ampicillin Sodium 2 gm/ Sodium (Chloride) 100 mls @ 200 mls/hr IV Q4H [facility] Last Admin: 12/23/23 13:05 Dose: 200 mls/hr Vancomycin HCl 1,250 mg/ (Sodium Chloride) 250 mls @ 166.667 mls/hr IV Q24H [facility] Insulin Human Lispro (Insulin Lispro 100 Unit/Ml 3 Ml Vial) 0 unit SUBCUT Q6H [facility]; Protocol Last Admin: 12/23/23 12:08 Dose: Not Given Lorazepam (Lorazepam 2 Mg/Ml Vial) 1 mg IVPUSH Q6H PRN PRN Reason: Restlessness Last Admin: 12/23/23 10:31 Dose: 1 mg Magnesium Hydroxide (Milk Of Magnesia 30 Ml Oral.Susp) 30 ml PO DAILY PRN PRN Reason: Constipation Melatonin (Melatonin 3 Mg Tablet) 6 mg PO BEDTIME PRN PRN Reason: Insomnia Olanzapine (Olanzapine 10 Mg Vial) 5 mg IM ONCE PRN PRN Reason: anxiety/restlessness Last Admin: 12/22/23 14:55 Dose: 5 mg Ondansetron HCl (Ondansetron Hcl 4 Mg/2 Ml Vial) 4 mg IVPUSH Q8H PRN PRN Reason: Nausea and Vomiting Pharmacy Consult (Consult Rx Vancomycin Dosing) 1 each MISCELLANE DAILY PRN PRN Reason: Consult order Sodium Chloride (0.9 % Sodium Chloride Flush 3 Ml Syringe) 3 ml IVFLUSH QSHIFT [place] Last Admin: 12/23/23 10:32 Dose: Not Given Allergies Allergies Allergy/AdvReac Type Severity Reaction Status Date / Time iodine Allergy Severe THROAT Verified 12/21/23 19:08 CLOSES ibuprofen AdvReac Intermediate UPSET Verified 12/21/23 19:08 STOMACH Assessment & Plan Assessment & Plan (1) Toxic metabolic encephalopathy: Status: Acute Code(s): G92.8 - Other toxic encephalopathy Plan no medication recommendations to day please re-consult when needed thank you signing off now Total time managing care of this patient today ____ minutes.
[2023-12-23 14:17] LABS: Cryptococcus neoformans/gattii Not Detected (Not Detect.); Enterovirus Not Detected (Not Detect.); Escherichia coli K1 Not Detected (Not Detect.); Haemophilus influenzae Not Detected (Not Detect.); Herpes simplex virus 1 Not Detected (Not Detect.); Herpes simplex virus 2 Not Detected (Not Detect.); Human herpesvirus 6 Not Detected (Not Detect.); Human parechovirus Not Detected (Not Detect.); Listeria monocytogenes Not Detected (Not Detect.); Neisseria meningitidis Not Detected (Not Detect.); Streptococcus agalactiae Not Detected (Not Detect.); Streptococcus pneumoniae Not Detected (Not Detect.); Varicella zoster virus Not Detected (Not Detect.)
[2023-12-23] MEDS: Doxycycline Hyclate 100 MG in 0.9 % Sodium Chloride 250 ML 166.67 MG IV (14:41)
[2023-12-23] MEDS: Labetalol HCL 100 MG/20 ML VIAL 10 MG IVPUSH (14:46)
[2023-12-23] MEDS: Lactated Ringers 1,000 ML 100 ML IVCONT (15:05)
[2023-12-23 17:02] LABS: Glucose, Whole Blood 93 mg/dL (60-115)
[2023-12-23 22:45] LABS: Acetaminophen LAB < 3 mcg/mL (<30)
[2023-12-24] VITALS (9 sets, daily range): BP systolic 142–202; BP diastolic 64–85; PULSE 82–103; RESP 18–20; TEMP 36.2–38.5; O2SAT 98–100
[2023-12-24 00:15] LABS: Glucose, Whole Blood 111 mg/dL (60-115)
[2023-12-24] MEDS: LORazepam 2 MG/ML VIAL 1 MG IVPUSH (00:48)
[2023-12-24] MEDS: Acetaminophen Supp 650 MG SUPP.RECT PR (00:49)
[2023-12-24] MEDS: Doxycycline Hyclate 100 MG in 0.9 % Sodium Chloride 250 ML 250 MG IV (00:50)
[2023-12-24] MEDS: 0.9 % Sodium Chloride Flush 3 ML SYRINGE IVFLUSH ×2 (01:17→21:35)
[2023-12-24] MEDS: Lactated Ringers 1,000 ML 100 ML IVCONT (01:54)
[2023-12-24 06:54] LABS: Hematocrit 28.6 % (37.0-47.0); Hemoglobin 8.8 g/dl (12.0-16.0); Mean Corpuscular HGB Conc 30.8 g/dl (31.0-35.0); Mean Corpuscular Hemoglobin 26.7 pg (27.0-33.0); Mean Corpuscular Volume 86.7 fL (80.0-98.0); Mean Platelet Volume 11.7 fL (9.4-12.3); Platelet Count 151 X10*3/uL (160-400); Red Cell Distribution Width 13.9 % (11.0-16.0); White Blood Count 8.8 X10*3/uL (4.8-10.8)
[2023-12-24 06:58] LABS: Glucose, Whole Blood 129 mg/dL (60-115)
[2023-12-24 07:14] LABS: Alanine Aminotransferase 16 U/L (0-31); Albumin Level 3.5 g/dL (3.5-5.0); Alkaline Phosphatase 76 U/L (39-117); Aspartate Amino Transferase 23 U/L (5-31); Bilirubin Direct 0.2 mg/dL (0.0-0.5); Bilirubin Total 0.4 mg/dL (0.0-1.0); Creatinine Clr Calc Pharmacy 68.1; Estimated Glomerular Filt Rate 60
[2023-12-24 07:18] LABS: Anion Gap 15 (12-20); Blood Urea Nitrogen 17 mg/dL (9-16); Calcium 9.3 mg/dL (8.4-10.2); Carbon Dioxide 18 mmol/L (22-29); Chloride 114 mmol/L (96-108); Creatinine Clr Calc Pharmacy 63.3; Estimated Glomerular Filt Rate 55; Glucose Random 142 mg/dL (60-115); Potassium 3.3 mmol/L (3.3-5.1); Sodium 144 mmol/L (135-145)
[2023-12-24 08:32] LABS: C Reactive Protein 19.76 mg/dL (< or = 0.50)
[2023-12-24 08:35] LABS: HIV Num 1 9.95 S/CO (0.00-0.99)
[2023-12-24 09:11] LABS: Erythrocyte Sedimentation Rate 100 MM/HR (0-20)
[2023-12-24 10:44] LABS: HIV AB/AG Nonreactive (Nonreactive); HIV Num 2 0.05 S/CO; HIV Num 3 0.05 S/CO
[2023-12-24 11:00] LABS: Procalcitonin 2.26 ng/mL
--- NOTE | 2023-12-24 11:11 | MHC.CM.PN ---
Per rounds, pt. is not ready to DC, she is still running a fever. DCP is to return to [facility] for STR, they are holding her bed. Clinical update has been sent to [facility] [place].
[2023-12-24] MEDS: Labetalol HCL 100 MG/20 ML VIAL 10 MG IVPUSH (11:26)
[2023-12-24 11:33] LABS: Glucose, Whole Blood 135 mg/dL (60-115)
[2023-12-24] MEDS: Losartan Potassium 50 MG TABLET PO (12:23)
[2023-12-24] MEDS: Aspirin Enteric Coated 81 MG TABLET.DR PO (12:24)
--- NOTE | 2023-12-24 12:36 | HO.PM.IMPN ---
Subjective Subjective Date of Service: 12/24/23 Interval History: seen and evaluated this morning More alert and interactive continues to spike fever , less often LLE more painful today and swollen no other overnight events Review of Systems Review of Systems: Yes all other systems are reviewed and are negative Physical Exam Vital Signs: Vital Signs: Last Vital Signs Temp 100.7 F H 12/24/23 12:00 Pulse 103 H 12/24/23 12:00 Resp 20 12/24/23 12:00 BP 174/79 H 12/24/23 12:23 Pulse Ox 100 12/24/23 12:00 O2 Del Method Room Air 12/24/23 12:00 BMI result Body Mass Index 34.1 Const: Other: Constitutional : altered, less restless Neck : Normal inspection, Supple Cardiovascular : RRR, no JVP, no lower extremity edema Respiratory : good bilateral air entry, no crackles, wheezes or rhonchi Gastrointestinal: soft, lax, Normal bowel sounds, Non tender Skin : Warm, Dry, LLE worsening warmth and mild tenderness around the surgical area, no drainage. Neurological : alert, disoriented, follow commands, having less tremors Objective Data Active Medications Acetaminophen (Acetaminophen Supp 650 Mg Supp.Rect) 650 mg AK Q6H PRN PRN Reason: Pain, Mild (Pain Scale 1-3), fever or headache Last Admin: 12/24/23 00:49 Dose: 650 mg Documented By: JENNY Albuterol Sulfate (Albuterol Sulfate (0.083%) 2.5 Mg/3 Ml Vial.Neb) 2.5 mg INHALE Q4H PRN PRN Reason: Shortness of Breath/Wheezing Aspirin (Aspirin Enteric Coated 81 Mg Tablet.) 81 mg PO DAILY [facility] Last Admin: 12/24/23 12:24 Dose: 81 mg Documented By: NIRAJ Atorvastatin Calcium (Atorvastatin Calcium 20 Mg Tablet) 20 mg PO BEDTIME [facility] Calcium Carbonate (Calcium Carbonate 750 Mg Tab.Chew) 750 mg PO Q4H PRN PRN Reason: Heartburn Glucose (Glucose Gel 15 Gm Gel..Gram.) 15 gm PO Q15M PRN; Protocol PRN Reason: per Hypoglycemia Standing Ord. Dextrose (D10) 250 mls @ 750 mls/hr IV Q15M PRN; Protocol PRN Reason: per Hypoglycemia Standing Ord. Clindamycin Phosphate (Cleocin) 300 mg in 50 mls @ 100 mls/hr IV Q6H [facility] Insulin Human Lispro (Insulin Lispro 100 Unit/Ml 3 Ml Vial) 0 unit SUBCUT Q6H [facility]; Protocol Last Admin: 12/24/23 11:29 Dose: Not Given Documented By: NIRAJ Non-Admin Reason: No Insulin Coverage Labetalol HCl (Labetalol Hcl 100 Mg/20 Ml Vial) 10 mg IVPUSH Q6H PRN PRN Reason: SBP > 160 Lorazepam (Lorazepam 2 Mg/Ml Vial) 1 mg IVPUSH Q4H PRN PRN Reason: Restlessness Last Admin: 12/24/23 00:48 Dose: 1 mg Documented By: SALMOD Losartan Potassium (Losartan Potassium 50 Mg Tablet) 50 mg PO DAILY [facility]; Protocol Last Admin: 12/24/23 12:23 Dose: 50 mg Documented By: NIRAJ Magnesium Hydroxide (Milk Of Magnesia 30 Ml Oral.Susp) 30 ml PO DAILY PRN PRN Reason: Constipation Melatonin (Melatonin 3 Mg Tablet) 6 mg PO BEDTIME PRN PRN Reason: Insomnia Sodium Chloride (0.9 % Sodium Chloride Flush 3 Ml Syringe) 3 ml IVFLUSH QSHIFT [facility] Last Admin: 12/24/23 08:29 Dose: Not Given Documented By: NIRAJ Non-Admin Reason: IV Running Tamsulosin HCl (Tamsulosin Hcl 0.4 Mg Capsule) 0.4 mg PO BEDTIME [facility] Topiramate (Topiramate 25 Mg Tablet) 50 mg PO BID [facility] Labs 12/24/23 06:11 12/24/23 06:11 Labs: Laboratory Results - last 24 hr 12/23/23 12/23/23 12/23/23 06:52 16:53 22:08 MCV MCH MCHC RDW Plt Count MPV Absolute Nucleated RBC Nucleated RBC % (auto) ESR Anion Gap Estim Creat Clear Calc Estimated GFR POC Glucose 93 Random Glucose Calcium Total Bilirubin Direct Bilirubin AST ALT Alkaline Phosphatase Total Creatine Kinase 173 H C-Reactive Protein Total Protein Albumin Procalcitonin CSF Tube Number CSF Volume CSF Appearance CSF Color CSF WBC CSF RBC CSF Lymphocytes CSF Monocytes % CSF C.neoform/gat PCR CSF CMV DNA (PCR) CSF Enterovirus (PCR) CSF E. coli K1 (PCR) CSF H. influenzae (PCR) CSF HSV I (PCR) CSF HSV II (PCR) CSF HHV 6 (PCR) CSF L.monocytogenes PCR CSF N. meningitidis PCR CSF Parechovirus (PCR) CSF S. agalactiae (PCR) CSF S. pneumoniae (PCR) CSF VZV (PCR) Acetaminophen < 3 HIV 1&2 Ab/P24 Ag 4thGn Nonreactive 12/23/23 12/24/23 12/24/23 Unknown 00:10 06:11 MCV 86.7 MCH 26.7 L MCHC 30.8 L RDW 13.9 Plt Count 151 L MPV 11.7 Absolute Nucleated RBC 0.000 Nucleated RBC % (auto) 0.0 ESR 100 H Anion Gap 15 Estim Creat Clear Calc 63.3 Estimated GFR POC Glucose 111 Random Glucose Calcium Total Bilirubin Direct Bilirubin AST ALT Alkaline Phosphatase Total Creatine Kinase C-Reactive Protein Total Protein Albumin Procalcitonin CSF Tube Number 4 CSF Volume 3.0 CSF Appearance CLEAR CSF Color COLORLESS CSF WBC 1 CSF RBC 0 CSF Lymphocytes 50 CSF Monocytes % 50 CSF C.neoform/gat PCR Not Detected CSF CMV DNA (PCR) Not Detected CSF Enterovirus (PCR) Not Detected CSF E. coli K1 (PCR) Not Detected CSF H. influenzae (PCR) Not Detected CSF HSV I (PCR) Not Detected CSF HSV II (PCR) Not Detected CSF HHV 6 (PCR) Not Detected CSF L.monocytogenes PCR Not Detected CSF N. meningitidis PCR Not Detected CSF Parechovirus (PCR) Not Detected CSF S. agalactiae (PCR) Not Detected CSF S. pneumoniae (PCR) Not Detected CSF VZV (PCR) Not Detected Acetaminophen HIV 1&2 Ab/P24 Ag 4thGn 12/24/23 12/24/23 12/24/23 06:11 06:11 06:55 MCV MCH MCHC RDW Plt Count MPV Absolute Nucleated RBC Nucleated RBC % (auto) ESR Anion Gap Estim Creat Clear Calc 68.1 Estimated GFR 55 60 POC Glucose 129 H Random Glucose 142 H Calcium 9.3 Total Bilirubin 0.4 Direct Bilirubin 0.2 AST 23 ALT 16 Alkaline Phosphatase 76 Total Creatine Kinase C-Reactive Protein 19.76 H Total Protein 7.0 Albumin 3.5 Procalcitonin CSF Tube Number CSF Volume CSF Appearance CSF Color CSF WBC CSF RBC CSF Lymphocytes CSF Monocytes % CSF C.neoform/gat PCR CSF CMV DNA (PCR) CSF Enterovirus (PCR) CSF E. coli K1 (PCR) CSF H. influenzae (PCR) CSF HSV I (PCR) CSF HSV II (PCR) CSF HHV 6 (PCR) CSF L.monocytogenes PCR CSF N. meningitidis PCR CSF Parechovirus (PCR) CSF S. agalactiae (PCR) CSF S. pneumoniae (PCR) CSF VZV (PCR) Acetaminophen HIV 1&2 Ab/P24 Ag 4thGn 12/24/23 12/24/23 09:39 11:29 MCV MCH MCHC RDW Plt Count MPV Absolute Nucleated RBC Nucleated RBC % (auto) ESR Anion Gap Estim Creat Clear Calc Estimated GFR POC Glucose 135 H Random Glucose Calcium Total Bilirubin Direct Bilirubin AST ALT Alkaline Phosphatase Total Creatine Kinase C-Reactive Protein Total Protein Albumin Procalcitonin 2.26 CSF Tube Number CSF Volume CSF Appearance CSF Color CSF WBC CSF RBC CSF Lymphocytes CSF Monocytes % CSF C.neoform/gat PCR CSF CMV DNA (PCR) CSF Enterovirus (PCR) CSF E. coli K1 (PCR) CSF H. influenzae (PCR) CSF HSV I (PCR) CSF HSV II (PCR) CSF HHV 6 (PCR) CSF L.monocytogenes PCR CSF N. meningitidis PCR CSF Parechovirus (PCR) CSF S. agalactiae (PCR) CSF S. pneumoniae (PCR) CSF VZV (PCR) Acetaminophen HIV 1&2 Ab/P24 Ag 4thGn Microbiology Microbiology Results: Microbiology 12/23/23 Unknown Gram Stain - Final Cerebrospinal Fluid CSF Examination - Final Fluid Description - Final CSF Culture - Preliminary No growth after 1 day 12/21/23 19:43 Blood Culture - Preliminary Blood - Venous No growth after 48 hours. 12/21/23 19:38 Blood Culture - Preliminary Blood - Venous No growth after 48 hours. Assessment and Plan (1) Toxic metabolic encephalopathy: Status: Acute (2) Fever: Status: Acute (3) Sepsis: Status: Acute Plan This is a 63-year-old female with pertinent history of mood disorder, insulin-dependent diabetes mellitus, SHANNAN, COPD not on home oxygen, gastroesophageal reflux disease, tubular fracture of left lower extremity 11/09/2023 with ORIF at [facility] who presents to the emergency department from nursing facility for evaluation of altered mentation. # Acute toxic metabolic encephalopathy 2/2 Possible Sepsis due to possible LLE cellulitis OR acute Serotonin syndrome On Duloxetine, Trazodone, Bupropion among others that might be causing Serotonin syndrome. On Hold Blood cultures negative CSF analysis negative for infection, negative encephalitis panel Elevated CRP, ESR and Procalcitonin still raising question of infection; LLE looks worse today so will cover with broader Abx Mildly elevated CK of 170 Passed swallowing screen, start diet Lorazepam IV PRN for possible Serotonin syndrome; less tremors and restlessness for the last 2 days, still spiking fever but lower and less frequent PO Tylenol for fever with cooling device DC Vancomycin, Cefepime and Ampicillin, ID evaluation, Switch to Clindamycin for now pending Tick borne disease, HIV, Hep C load, [place] [facility] consult pending Close monitoring # Paranoia in a patient with mood disorder Consulting Psychiatry to optimize medications once more alert # Insulin-dependent diabetes mellitus with hyperglycemia:Initiating Accu-Cheks with SSI # COPD: No exacerbation during admission. Continue home inhalers # Gastroesophageal reflux disease: On PPI # Tibia/fibular fracture status post ORIF, to do PT once medically stable DVT prophylaxis: SCDs Full code The patient will need overnight stay for further work up and treatment with IV antibiotics and Benzodiazepines, pending specialist evaluation which is not possible in a lesser acute setting. Quality Stroke Does the patient have a stroke diagnosis?: No VTE Prior VTE?: No VTE Risk Level:: Medical - moderate - high VTE Device Contraindication: Treatment Not Indicated VTE Drug Contraindication: N/A - Med Ordered
--- NOTE | 2023-12-24 13:27 | P.CNNE_ITS ---
History of Present Illness Data of Consult Service Date: 12/24/23 Primary Care Provider: Ethan Lepe MD [facility] Reason for consult: Altered mental status This is a 63-year-old female with history of mood disorder, insulin-dependent diabetes mellitus, SHANNAN, COPD, gastroesophageal reflux disease, tibia/fibula fracture of left lower extremity 11/09/2023 with ORIF at [facility] who presented to the emergency department from nursing facility for evaluation of altered mentation. Unable to obtain history from the patient. History was obtained from ER provider and chart review. Per the daughter, this patient has had many episodes of paranoia since being discharged from [facility]. Patient was confused on the day of presentation. Also had episodes of paranoia and delusion. Apparently, patient was holding a blanket and saying that it was a baby. She was also screaming about a date baby while sitting in chair. No history of psychiatric illness. In the emergency department, patient was found to be febrile, tachypneic and tachycardic. Also found to have left lower extremity cellulitis and initiated on empiric IV antibiotics. Her feels that she is better mentally, although she prefers to sleep and does not answer many questions. She speaks Slovak and a exam was performed with the help of her who speaks Slovak. She complains of a lot of pain in her left leg in which she has the cellulitis. CT brain and Spinal fluid were normal. [facility] Past Medical History Medical History Diabetes Hepatitis GERD (gastroesophageal reflux disease) Neuropathy Fibromyalgia Depression Sleep apnea Asthma Elevated cholesterol HTN (hypertension) Surgical History Surgical History History of esophagogastroduodenoscopy (EGD) H/O colonoscopy S/P insertion of spinal cord stimulator Hx of excision of mass Hx of hernia repair Social History Social History Household Members: None Housing: Intermediate Do you presently have visiting nurse or other home services: No (currently at [facility]) Alcohol intake: current Alcohol intake frequency: does not drink Alcohol type: wine 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 Patient Tobacco Use Status: Tobacco use Unknown Cigarette Packs Per Day: 1 Cigarettes Per Day: 24 Years Smoked: 48 Substance Use Type: Marijuana Advance Directives Date on File: 12/23/23 service: No Meds Allergies Allergy/AdvReac Type Severity Reaction Status Date / Time iodine Allergy Severe THROAT Verified 12/21/23 19:08 CLOSES ibuprofen AdvReac Intermediate UPSET Verified 12/21/23 19:08 STOMACH Active Medications: Current Medications Acetaminophen (Acetaminophen 325 Mg Tablet) 975 mg PO Q6H PRN PRN Reason: Fever Albuterol Sulfate (Albuterol Sulfate (0.083%) 2.5 Mg/3 Ml Vial.Neb) 2.5 mg INHALE Q4H PRN PRN Reason: Shortness of Breath/Wheezing Aspirin (Aspirin Enteric Coated 81 Mg Tablet.Dr) 81 mg PO DAILY [facility] Last Admin: 12/24/23 12:24 Dose: 81 mg Atorvastatin Calcium (Atorvastatin Calcium 20 Mg Tablet) 20 mg PO BEDTIME [facility] Calcium Carbonate (Calcium Carbonate 750 Mg Tab.Chew) 750 mg PO Q4H PRN PRN Reason: Heartburn Glucose (Glucose Gel 15 Gm Gel..Gram.) 15 gm PO Q15M PRN; Protocol PRN Reason: per Hypoglycemia Standing Ord. Dextrose (D10) 250 mls @ 750 mls/hr IV Q15M PRN; Protocol PRN Reason: per Hypoglycemia Standing Ord. Clindamycin Phosphate (Cleocin) 300 mg in 50 mls @ 100 mls/hr IV Q6H [facility] Insulin Human Lispro (Insulin Lispro 100 Unit/Ml 3 Ml Vial) 0 unit SUBCUT QIDACHS [facility]; Protocol Labetalol HCl (Labetalol Hcl 100 Mg/20 Ml Vial) 10 mg IVPUSH Q6H PRN PRN Reason: SBP > 160 Lorazepam (Lorazepam 2 Mg/Ml Vial) 1 mg IVPUSH Q4H PRN PRN Reason: Restlessness Last Admin: 12/24/23 00:48 Dose: 1 mg Losartan Potassium (Losartan Potassium 50 Mg Tablet) 50 mg PO DAILY [facility]; Protocol Last Admin: 12/24/23 12:23 Dose: 50 mg Magnesium Hydroxide (Milk Of Magnesia 30 Ml Oral.Susp) 30 ml PO DAILY PRN PRN Reason: Constipation Melatonin (Melatonin 3 Mg Tablet) 6 mg PO BEDTIME PRN PRN Reason: Insomnia Sodium Chloride (0.9 % Sodium Chloride Flush 3 Ml Syringe) 3 ml IVFLUSH QSHIFT [facility] Last Admin: 12/24/23 08:29 Dose: Not Given Tamsulosin HCl (Tamsulosin Hcl 0.4 Mg Capsule) 0.4 mg PO BEDTIME [facility] Topiramate (Topiramate 25 Mg Tablet) 50 mg PO BID [facility] Home Medications ?Medication ?Instructions ?Recorded ?Confirmed ?Last Taken ?Type atorvastatin 20 mg tablet 20 mg PO BEDTIME 04/05/20 12/22/23 Unknown History bupropion HCl 150 mg 24 hr tablet, 150 mg PO DAILY 04/05/20 12/22/23 Unknown History extended release (Wellbutrin XL) insulin detemir U-100 100 unit/mL 34 unit subcut BEDTIME 04/05/20 12/22/23 Unknown History subcutaneous solution (Levemir U-100 Insulin) metformin 500 mg tablet 500 mg PO DAILY 04/05/20 12/22/23 Unknown History trazodone 100 mg tablet 100 mg PO BEDTIME 04/05/20 12/22/23 Unknown History Saccharomyces boulardii 10 billion 10,000 mmu cells PO BID 12/22/23 12/22/23 Unknown History cell capsule acetaminophen 325 mg tablet 650 mg PO Q4H PRN Pain 12/22/23 12/22/23 Unknown History (Tylenol) albuterol sulfate 90 mcg/actuation 2 puff inhalation Q6H PRN wheezing 12/22/23 12/22/23 Unknown History aerosol inhaler (Ventolin HFA) aspirin 81 mg tablet,delayed 81 mg PO DAILY 12/22/23 12/22/23 Unknown History release bisacodyl 10 mg rectal suppository 10 mg MS DAILY PRN Constipation 12/22/23 12/22/23 Unknown History cetirizine 10 mg tablet 10 mg PO DAILY 12/22/23 12/22/23 Unknown History docusate sodium 100 mg capsule 100 mg PO BID 12/22/23 12/22/23 Unknown History duloxetine 60 mg capsule,delayed 60 mg PO BID 12/22/23 12/22/23 Unknown History release sprinkle famotidine 20 mg tablet 20 mg PO BEDTIME 12/22/23 12/22/23 Unknown History ferrous gluconate 324 mg (38 mg 324 mg PO DAILY 12/22/23 12/22/23 Unknown History iron) tablet fluticasone propionate 50 2 spray intranasal DAILY 12/22/23 12/22/23 Unknown History mcg/actuation nasal spray,suspension (Flonase Allergy Relief) insulin lispro 100 unit/mL 1 sliding scale dose subcut TIDAC 12/22/23 12/22/23 Unknown History subcutaneous solution losartan 50 mg tablet 50 mg PO DAILY 12/22/23 12/22/23 Unknown History magnesium hydroxide 400 mg/5 mL 30 ml PO DAILY PRN Constipation 12/22/23 12/22/23 Unknown History oral suspension (Milk of Magnesia) naloxone 4 mg/actuation nasal 4 mg intranasal Q3M PRN Opioid 12/22/23 12/22/23 Unknown History spray (Narcan) Overdose oxycodone 5 mg tablet 5 mg PO Q4H PRN Moderate Pain 12/22/23 12/22/23 Unknown History (Scale Score 5-6) oxycodone-acetaminophen 7.5 mg-325 1 tab PO DAILY 12/22/23 12/22/23 Unknown History mg tablet (Percocet) pantoprazole 40 mg tablet,delayed 40 mg PO DAILY@0630 12/22/23 12/22/23 Unknown History release pregabalin 100 mg capsule 100 mg PO TID 12/22/23 12/22/23 Unknown History riboflavin (vitamin B2) 100 mg 100 mg PO DAILY 12/22/23 12/22/23 Unknown History tablet riboflavin (vitamin B2) 400 mg 400 mg PO DAILY 12/22/23 12/22/23 Unknown History tablet sennosides 8.6 mg-docusate sodium 2 tab-cap PO BEDTIME 12/22/23 12/22/23 Unknown History 50 mg tablet (Senna with Docusate Sodium) sodium phosphates 19 gram-7 118 ml MS DAILY PRN Constipation 12/22/23 12/22/23 Unknown History gram/118 mL enema (Fleet Enema) sumatriptan succinate 100 mg tablet 100 mg PO DAILY PRN Migraine 12/22/23 12/22/23 Unknown History Headache tamsulosin 0.4 mg capsule 0.4 mg PO BEDTIME 12/22/23 12/22/23 Unknown History tizanidine 4 mg tablet 4 mg PO Q8H PRN Muscle Spasm 12/22/23 12/22/23 Unknown History topiramate 50 mg tablet 50 mg PO BID 12/22/23 12/22/23 Unknown History Physical Exam 2 Vital Signs: Vital Signs: Last Vital Signs Temp 100.7 F H 12/24/23 12:00 Pulse 103 H 12/24/23 12:00 Resp 20 12/24/23 12:00 BP 174/79 H 12/24/23 12:23 Pulse Ox 100 12/24/23 12:00 O2 Del Method Room Air 12/24/23 12:00 BMI result Body Mass Index 34.1 Neuro: Other: Exam is somewhat limited because of poor patient cooperation and because she prefers to sleep at this time. She was oriented to month, year and to the hospital but didn't know this was [facility]. She followed simple commands, and her exam was nonfocal. Neck was supple. Results Labs 12/24/23 06:11 12/24/23 06:11 Labs: Short CBC 12/24/23 Range/Units 06:11 WBC 8.8 (4.8-10.8) X10*3/uL Hgb 8.8 L (12.0-16.0) g/dl Hct 28.6 L (37.0-47.0) % Plt Count 151 L (160-400) X10*3/uL BMP 12/24/23 12/24/23 06:11 06:11 Sodium 144 Potassium 3.3 Chloride 114 H Carbon Dioxide 18 L BUN 17 H Creatinine 1.01 0.94 Calcium 9.3 Cardiac Enzymes 12/23/23 Range/Units 06:52 Total Creatine Kinase 173 H (26-140) U/L Liver Function 12/24/23 Range/Units 06:11 Total Bilirubin 0.4 (0.0-1.0) mg/dL Direct Bilirubin 0.2 (0.0-0.5) mg/dL AST 23 (5-31) U/L ALT 16 (0-31) U/L Alkaline Phosphatase 76 (39-117) U/L Albumin 3.5 (3.5-5.0) g/dL Microbiology Microbiology Results: Microbiology 12/23/23 Unknown Cerebrospinal Fluid Gram Stain - Final 12/23/23 Unknown Cerebrospinal Fluid CSF Examination - Final 12/23/23 Unknown Cerebrospinal Fluid Fluid Description - Final 12/23/23 Unknown Cerebrospinal Fluid CSF Culture - Preliminary No growth after 1 day 12/21/23 19:43 Blood - Venous Blood Culture - Preliminary No growth after 48 hours. 12/21/23 19:38 Blood - Venous Blood Culture - Preliminary No growth after 48 hours. Assessment and Plan (1) Toxic metabolic encephalopathy: Status: Acute Encephalopathy probably related to her Left leg cellulitis. She's spiking temperatures again. Recommendation and blood cultures. Continue antibiotic coverage. Rule out other metabolic abnormalities. CT brain and spinal fluid were negative. Procedures Date of Service Date of Service: 12/24/23
[2023-12-24] MEDS: Acetaminophen 325 MG TABLET 975 MG PO (13:29)
[2023-12-24] MEDS: Clindamycin Phosphate/D5W 300 MG/50 ML PIGGYBACK 100 MG IV ×2 (13:57→18:32)
--- NOTE | 2023-12-24 14:04 | MHC.SPEECHCO ---
Per RN, Pt passed swallow screen and MD has placed her on a diet. No difficulties indicated by Staff or in EMR - save behavioral challenges. Per , OK to hold off for now, please re-refer if status changes.
[2023-12-24 15:00] LABS: MRSA Nasal PCR POSITIVE (Negative); SA Nasal PCR POSITIVE (Negative)
[2023-12-24 16:32] LABS: Glucose, Whole Blood 126 mg/dL (60-115)
--- NOTE | 2023-12-24 17:48 | HO.WOUND ---
Wound Consult: Initial 63yr old?female admitted to [facility] on 12/21/23 - See progress notes and H&P for detailed history.? Wound consult placed for Left Leg wound.? Patient agreeable to assessment and photo documentation.? See chart review for detailed history patient had orthopedic procedure at [facility]SH on 11/09/23 per providers notes imaging completed and no concern for osteo at this time. Concern for hardware reaction may be considered TT to provider. Left Lower Leg Etiology: ?Unknown Etiology Measurements: Superior site 1cm x 0.4cm x 0.2cm dry lifting scab with moist wound bed exposed medial site 3cm x 0.5cm x 0.1cm dried yellow slough adhernt to wound bed Drainage / Odor: None Edges: ? irregular Dorina wound: Red hot swollen and tender to the touch Pain: pain reported Goals of Treatment: ? Elevate lower leg and moist wound healing Recommendations: 1. Left Lower Leg - Elevate lower leg off of bed surface with pillows. Cleanse wound sites with NS moist gauze, apply wound gel cover with dry dressing change ever 3 days. Re-consult wound care Nurse for wound deterioration or wound changes.
[2023-12-24 20:47] LABS: Glucose, Whole Blood 112 mg/dL (60-115)
[2023-12-24] MEDS: Tamsulosin HCL 0.4 MG CAPSULE PO (21:34)
[2023-12-24] MEDS: Atorvastatin Calcium 20 MG TABLET PO (21:34)
[2023-12-24] MEDS: Topiramate 25 MG TABLET 50 MG PO (21:34)
[2023-12-24] MEDS: Melatonin 3 MG TABLET 6 MG PO (21:45)
[2023-12-24 21:50] LABS: Vancomycin Random 5.8 mcg/mL (15-20)
[2023-12-25] MEDS: Clindamycin Phosphate/D5W 300 MG/50 ML PIGGYBACK 100 MG IV ×4 (01:41→18:33)
[2023-12-25] MEDS: Acetaminophen 325 MG TABLET 975 MG PO ×2 (03:03→21:55)
[2023-12-25] MEDS: cefEPime HCl 2 GM in 0.9 % Sodium Chloride 50 ML IV ×3 (03:05→17:37)
[2023-12-25 03:22] VITALS: BP 156/76; PULSE 82; RESP 18; TEMP 36.7; O2SAT 98
[2023-12-25 06:59] LABS: Hematocrit 26.3 % (37.0-47.0); Hemoglobin 8.2 g/dl (12.0-16.0); Mean Corpuscular HGB Conc 31.2 g/dl (31.0-35.0); Mean Corpuscular Hemoglobin 26.8 pg (27.0-33.0); Mean Corpuscular Volume 85.9 fL (80.0-98.0); Mean Platelet Volume 11.4 fL (9.4-12.3); Platelet Count 154 X10*3/uL (160-400); Red Blood Count 3.06 X10*6/uL (4.20-5.50); Red Cell Distribution Width 13.9 % (11.0-16.0); White Blood Count 7.2 X10*3/uL (4.8-10.8)
[2023-12-25 07:11] VITALS: BP 124/67; PULSE 62; RESP 18; TEMP 36.3; O2SAT 100
[2023-12-25 07:13] LABS: Anion Gap 13 (12-20); Blood Urea Nitrogen 12 mg/dL (9-16); Calcium 9.3 mg/dL (8.4-10.2); Carbon Dioxide 20 mmol/L (22-29); Chloride 112 mmol/L (96-108); Creatinine Clr Calc Pharmacy 74.4; Estimated Glomerular Filt Rate > 60; Glucose Random 154 mg/dL (60-115); Sodium 142 mmol/L (135-145)
[2023-12-25 07:41] LABS: Glucose, Whole Blood 141 mg/dL (60-115)
[2023-12-25] MEDS: Topiramate 25 MG TABLET 50 MG PO ×2 (07:45→21:55)
[2023-12-25] MEDS: Losartan Potassium 50 MG TABLET PO (07:45)
[2023-12-25] MEDS: Aspirin Enteric Coated 81 MG TABLET.DR PO (07:46)
[2023-12-25] MEDS: 0.9 % Sodium Chloride Flush 3 ML SYRINGE IVFLUSH ×2 (07:46→16:45)
--- NOTE | 2023-12-25 09:27 | P.CONOP_ITS ---
History of Present Illness HPI Consult date: 12/25/23 Chief complaint: AMS Narrative: Ms. Levin is a 63-year-old female with history of diabetes mellitus, asthma, COPD, GERD, obstructive sleep apnea, tib fib fracture of the left lower extremity 11/09/[address] [facility] who presents from her nursing facility for evaluation of altered mental status. She was admitted to the medicine service and noted to have cellulitis on the left lower extremity. Orthopedics was consulted given recent surgery for additional evaluation. Review of Systems 2 Review of Systems: Yes all other systems are reviewed and are negative [facility] Past Medical History Medical History Diabetes Hepatitis GERD (gastroesophageal reflux disease) Neuropathy Fibromyalgia Depression Sleep apnea Asthma Elevated cholesterol HTN (hypertension) Surgical History Surgical History History of esophagogastroduodenoscopy (EGD) H/O colonoscopy S/P insertion of spinal cord stimulator Hx of excision of mass Hx of hernia repair Social History Social History Household Members: None Housing: [facility] Do you presently have visiting nurse or other home services: No (currently at [facility]) Alcohol intake: current Alcohol intake frequency: does not drink Alcohol type: wine 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 Patient Tobacco Use Status: Tobacco use Unknown Cigarette Packs Per Day: 1 Cigarettes Per Day: 24 Years Smoked: 48 Substance Use Type: Marijuana Advance Directives Date on File: 12/23/23 service: No Meds Allergies Allergy/AdvReac Type Severity Reaction Status Date / Time iodine Allergy Severe THROAT Verified 12/21/23 19:08 CLOSES ibuprofen AdvReac Intermediate UPSET Verified 12/21/23 19:08 STOMACH Active Medications: Current Medications Acetaminophen (Acetaminophen 325 Mg Tablet) 975 mg PO Q6H PRN PRN Reason: Fever Last Admin: 12/25/23 03:03 Dose: 975 mg Acetaminophen/Butalbital/Caffeine (Butalb/Acetamin/Caff 50/325/40 Tablet) 1 tab PO Q4H PRN PRN Reason: Headache Albuterol Sulfate (Albuterol Sulfate (0.083%) 2.5 Mg/3 Ml Vial.Neb) 2.5 mg INHALE Q4H PRN PRN Reason: Shortness of Breath/Wheezing Aspirin (Aspirin Enteric Coated 81 Mg Tablet.Dr) 81 mg PO DAILY [facility] Last Admin: 12/25/23 07:46 Dose: 81 mg Atorvastatin Calcium (Atorvastatin Calcium 20 Mg Tablet) 20 mg PO BEDTIME [facility] Last Admin: 12/24/23 21:34 Dose: 20 mg Calcium Carbonate (Calcium Carbonate 750 Mg Tab.Chew) 750 mg PO Q4H PRN PRN Reason: Heartburn Glucose (Glucose Gel 15 Gm Gel..Gram.) 15 gm PO Q15M PRN; Protocol PRN Reason: per Hypoglycemia Standing Ord. Dextrose (D10) 250 mls @ 750 mls/hr IV Q15M PRN; Protocol PRN Reason: per Hypoglycemia Standing Ord. Clindamycin Phosphate (Cleocin) 300 mg in 50 mls @ 100 mls/hr IV Q6H [facility] Last Infusion: 12/25/23 08:28 Dose: Infused Cefepime HCl 2 gm/ Sodium (Chloride) 50 mls @ 100 mls/hr IV Q8H [facility] Last Infusion: 12/25/23 04:12 Dose: Infused Insulin Human Lispro (Insulin Lispro 100 Unit/Ml 3 Ml Vial) 0 unit SUBCUT QIDACHS [facility]; Protocol Last Admin: 12/25/23 07:44 Dose: Not Given Labetalol HCl (Labetalol Hcl 100 Mg/20 Ml Vial) 10 mg IVPUSH Q6H PRN PRN Reason: SBP > 160 Lorazepam (Lorazepam 2 Mg/Ml Vial) 1 mg IVPUSH Q4H PRN PRN Reason: Restlessness Last Admin: 12/24/23 00:48 Dose: 1 mg Losartan Potassium (Losartan Potassium 50 Mg Tablet) 50 mg PO DAILY [facility]; Protocol Last Admin: 12/25/23 07:45 Dose: 50 mg Magnesium Hydroxide (Milk Of Magnesia 30 Ml Oral.Susp) 30 ml PO DAILY PRN PRN Reason: Constipation Melatonin (Melatonin 3 Mg Tablet) 6 mg PO BEDTIME PRN PRN Reason: Insomnia Last Admin: 12/24/23 21:45 Dose: 6 mg Sodium Chloride (0.9 % Sodium Chloride Flush 3 Ml Syringe) [address] [facility] Last Admin: 12/25/23 07:46 Dose: 3 ml Tamsulosin HCl (Tamsulosin Hcl 0.4 Mg Capsule) 0.4 mg PO BEDTIME [facility] Last Admin: 12/24/23 21:34 Dose: 0.4 mg Topiramate (Topiramate 25 Mg Tablet) 50 mg PO BID [facility] Last Admin: 12/25/23 07:45 Dose: 50 mg Home Medications ?Medication ?Instructions ?Recorded ?Confirmed ?Last Taken ?Type atorvastatin 20 mg tablet 20 mg PO BEDTIME 04/05/20 12/22/23 Unknown History bupropion HCl 150 mg 24 hr tablet, 150 mg PO DAILY 04/05/20 12/22/23 Unknown History extended release (Wellbutrin XL) insulin detemir U-100 100 unit/mL 34 unit subcut BEDTIME 04/05/20 12/22/23 Unknown History subcutaneous solution (Levemir U-100 Insulin) metformin 500 mg tablet 500 mg PO DAILY 04/05/20 12/22/23 Unknown History trazodone 100 mg tablet 100 mg PO BEDTIME 04/05/20 12/22/23 Unknown History Saccharomyces boulardii 10 billion 10,000 mmu cells PO BID 12/22/23 12/22/23 Unknown History cell capsule acetaminophen 325 mg tablet 650 mg PO Q4H PRN Pain 12/22/23 12/22/23 Unknown History (Tylenol) albuterol sulfate 90 mcg/actuation 2 puff inhalation Q6H PRN wheezing 12/22/23 12/22/23 Unknown History aerosol inhaler (Ventolin HFA) aspirin 81 mg tablet,delayed 81 mg PO DAILY 12/22/23 12/22/23 Unknown History release bisacodyl 10 mg rectal suppository 10 mg [place] DAILY PRN Constipation 12/22/23 12/22/23 Unknown History cetirizine 10 mg tablet 10 mg PO DAILY 12/22/23 12/22/23 Unknown History docusate sodium 100 mg capsule 100 mg PO BID 12/22/23 12/22/23 Unknown History duloxetine 60 mg capsule,delayed 60 mg PO BID 12/22/23 12/22/23 Unknown History release sprinkle famotidine 20 mg tablet 20 mg PO BEDTIME 12/22/23 12/22/23 Unknown History ferrous gluconate 324 mg (38 mg 324 mg PO DAILY 12/22/23 12/22/23 Unknown History iron) tablet fluticasone propionate 50 2 spray intranasal DAILY 12/22/23 12/22/23 Unknown History mcg/actuation nasal spray,suspension (Flonase Allergy Relief) insulin lispro 100 unit/mL 1 sliding scale dose subcut TIDAC 12/22/23 12/22/23 Unknown History subcutaneous solution losartan 50 mg tablet 50 mg PO DAILY 12/22/23 12/22/23 Unknown History magnesium hydroxide 400 mg/5 mL 30 ml PO DAILY PRN Constipation 12/22/23 12/22/23 Unknown History oral suspension (Milk of Magnesia) naloxone 4 mg/actuation nasal 4 mg intranasal Q3M PRN Opioid 12/22/23 12/22/23 Unknown History spray (Narcan) Overdose oxycodone 5 mg tablet 5 mg PO Q4H PRN Moderate Pain 12/22/23 12/22/23 Unknown History (Scale Score 5-6) oxycodone-acetaminophen 7.5 mg-325 1 tab PO DAILY 12/22/23 12/22/23 Unknown History mg tablet (Percocet) pantoprazole 40 mg tablet,delayed 40 mg PO DAILY@0630 12/22/23 12/22/23 Unknown History release pregabalin 100 mg capsule 100 mg PO TID 12/22/23 12/22/23 Unknown History riboflavin (vitamin B2) 100 mg 100 mg PO DAILY 12/22/23 12/22/23 Unknown History tablet riboflavin (vitamin B2) 400 mg 400 mg PO DAILY 12/22/23 12/22/23 Unknown History tablet sennosides 8.6 mg-docusate sodium 2 tab-cap PO BEDTIME 12/22/23 12/22/23 Unknown History 50 mg tablet (Senna with Docusate Sodium) sodium phosphates 19 gram-7 118 ml [place] DAILY PRN Constipation 12/22/23 12/22/23 Unknown History gram/118 mL enema (Fleet Enema) sumatriptan succinate 100 mg tablet 100 mg PO DAILY PRN Migraine 12/22/23 12/22/23 Unknown History Headache tamsulosin 0.4 mg capsule 0.4 mg PO BEDTIME 12/22/23 12/22/23 Unknown History tizanidine 4 mg tablet 4 mg PO Q8H PRN Muscle Spasm 12/22/23 12/22/23 Unknown History topiramate 50 mg tablet 50 mg PO BID 12/22/23 12/22/23 Unknown History Physical Exam 2 Vital Signs: Vital Signs: Last Vital Signs Temp 97.3 F 12/25/23 07:11 Pulse 62 12/25/23 07:11 Resp 18 12/25/23 07:11 BP 124/67 12/25/23 07:11 Pulse Ox 100 12/25/23 07:11 O2 Del Method Room Air 12/25/23 07:11 BMI result Body Mass Index 34.1 Const: Other: Constitutional : altered, less restless Neck : Normal inspection, Supple Cardiovascular : RRR, no JVP, no lower extremity edema Respiratory : good bilateral air entry, no crackles, wheezes or rhonchi Gastrointestinal: soft, lax, Normal bowel sounds, Non tender Skin : Warm, Dry, LLE worsening warmth and mild tenderness around the surgical area, no drainage. Neurological : alert, disoriented, follow commands, having less tremors General: cooperative, healthy appearing and no acute distress Resp: Effort & Inspection: normal respiratory effort and able to speak in complete sentences Cardio: Rate: regular rate Peripheral pulses: Peripheral pulses 2+ throughout GI: Palpation (GI): Soft to palpation Skin: Lesions: no lesions Rashes: no rashes Extrem: Other: LLE cellulitic. Prior incision sites are intact. No active drainage. Able to dorsi/plantar flex. NVI. Results Labs 12/25/23 06:04 12/25/23 06:04 Labs: Abnormal lab results 12/24/23 12/24/23 12/24/23 Range/Units 11:29 13:40 16:27 RBC (4.20-5.50) X10*6/uL Hgb (12.0-16.0) g/dl Hct (37.0-47.0) % MCH (27.0-33.0) pg Plt Count (160-400) X10*3/uL Potassium (3.3-5.1) mmol/L Chloride (96-108) mmol/L Carbon Dioxide (22-29) mmol/L POC Glucose 135 H 126 H (60-115) mg/dL Random Glucose (60-115) mg/dL Nasal Screen MRSA (PCR) POSITIVE A (Negative) Nasal S. aureus Screen POSITIVE A (Negative) Random Vancomycin (15-20) mcg/mL 12/24/23 12/25/23 12/25/23 Range/Units 21:10 06:04 07:31 RBC 3.06 L (4.20-5.50) X10*6/uL Hgb 8.2 L (12.0-16.0) g/dl Hct 26.3 L (37.0-47.0) % MCH 26.8 L (27.0-33.0) pg Plt Count 154 L (160-400) X10*3/uL Potassium 3.0 L (3.3-5.1) mmol/L Chloride 112 H (96-108) mmol/L Carbon Dioxide 20 L (22-29) mmol/L POC Glucose 141 H (60-115) mg/dL Random Glucose 154 H (60-115) mg/dL Nasal Screen MRSA (PCR) (Negative) Nasal S. aureus Screen (Negative) Random Vancomycin 5.8 L (15-20) mcg/mL H & H 12/21/23 12/22/23 12/23/23 Range/Units 19:38 05:06 06:52 Hgb 9.5 L 10.6 L 10.1 L (12.0-16.0) g/dl Hct 30.7 L 33.9 L 32.9 L (37.0-47.0) % 12/24/23 12/25/23 Range/Units 06:11 06:04 Hgb 8.8 L 8.2 L (12.0-16.0) g/dl Hct 28.6 L 26.3 L (37.0-47.0) % Coagulation 12/21/23 Range/Units 19:38 INR 1.1 (0.9-1.1) All other labs normal. Assessment and Plan (1) Fever: Status: Acute (2) Sepsis: Status: Acute (3) Cellulitis of left leg: Status: Acute Continue IV abx Pain management as appropriate No acute orthopeidc intervention needed at this time -> f/u with surgeon once discharged Procedures Date of Service Date of Service: 12/25/23
[2023-12-25] MEDS: Butalb/Acetamin/Caff 50/325/40 TABLET 2 TAB PO (10:28)
[2023-12-25 11:12] VITALS: BP 141/86; PULSE 82; RESP 18; TEMP 36.1; O2SAT 100
[2023-12-25 11:41] LABS: Glucose, Whole Blood 141 mg/dL (60-115)
--- NOTE | 2023-12-25 12:12 | P.PNIM_ITS ---
Subjective Subjective Date of Service: 12/25/23 Interval History: seen and evaluated this morning Alert, interactive but disoriented Looks much better overall LLE painful and swollen, little better than yesterday No fever last 24 hours no other overnight events Review of Systems Review of Systems: Yes all other systems are reviewed and are negative Physical Exam 2 Vital Signs: Vital Signs: Last Vital Signs Temp 97.0 F 12/25/23 11:12 Pulse 82 12/25/23 11:12 Resp 18 12/25/23 11:12 BP 141/86 H 12/25/23 11:12 Pulse Ox 100 12/25/23 11:12 O2 Del Method Room Air 12/25/23 11:12 BMI result Body Mass Index 34.1 Const: Other: Constitutional : Alert, interactive, not in distress Neck : Normal inspection, Supple Cardiovascular : RRR, no JVP, no lower extremity edema Respiratory : good bilateral air entry, no crackles, wheezes or rhonchi Gastrointestinal: soft, lax, Normal bowel sounds, Non tender Skin : Warm, Dry, LLE worsened erythema and mild tenderness around the surgical area, no drainage. Neurological : Alert, disoriented, no focal weakness Objective Data Active Medications Acetaminophen (Acetaminophen 325 Mg Tablet) 975 mg PO Q6H PRN PRN Reason: Fever Last Admin: 12/25/23 03:03 Dose: 975 mg Documented By: RAZIA Acetaminophen/Butalbital/Caffeine (Butalb/Acetamin/Caff 50/325/40 Tablet) 1 tab PO Q4H PRN PRN Reason: Headache Albuterol Sulfate (Albuterol Sulfate (0.083%) 2.5 Mg/3 Ml Vial.Glory) 2.5 mg INHALE Q4H PRN PRN Reason: Shortness of Breath/Wheezing Aspirin (Aspirin Enteric Coated 81 Mg Tablet.) 81 mg PO DAILY [facility] Last Admin: 12/25/23 07:46 Dose: 81 mg Documented By: AISHWARYA Atorvastatin Calcium (Atorvastatin Calcium 20 Mg Tablet) 20 mg PO BEDTIME [facility] Last Admin: 12/24/23 21:34 Dose: 20 mg Documented By: SHIRA Calcium Carbonate (Calcium Carbonate 750 Mg Tab.Chew) 750 mg PO Q4H PRN PRN Reason: Heartburn Glucose (Glucose Gel 15 Gm Gel..Gram.) 15 gm PO Q15M PRN; Protocol PRN Reason: per Hypoglycemia Standing Ord. Dextrose (D10) 250 mls @ 750 mls/hr IV Q15M PRN; Protocol PRN Reason: per Hypoglycemia Standing Ord. Clindamycin Phosphate (Cleocin) 300 mg in 50 mls @ 100 mls/hr IV Q6H [facility] Last Infusion: 12/25/23 08:28 Dose: Infused Documented By: AISHWARYA Cefepime HCl 2 gm/ Sodium (Chloride) 50 mls @ 100 mls/hr IV Q8H [facility] Last Infusion: 12/25/23 11:04 Dose: Infused Documented By: AISHWARYA Insulin Human Lispro (Insulin Lispro 100 Unit/Ml 3 Ml Vial) 0 unit SUBCUT QIDACHS [facility]; Protocol Last Admin: 12/25/23 11:41 Dose: Not Given Documented By: AISHWARYA Non-Admin Reason: No Insulin Coverage Labetalol HCl (Labetalol Hcl 100 Mg/20 Ml Vial) 10 mg IVPUSH Q6H PRN PRN Reason: SBP > 160 Lorazepam (Lorazepam 2 Mg/Ml Vial) 1 mg IVPUSH Q4H PRN PRN Reason: Restlessness Last Admin: 12/24/23 00:48 Dose: 1 mg Documented By: JENNY Losartan Potassium (Losartan Potassium 50 Mg Tablet) 50 mg PO DAILY [facility]; Protocol Last Admin: 12/25/23 07:45 Dose: 50 mg Documented By: AISHWARYA Magnesium Hydroxide (Milk Of Magnesia 30 Ml Oral.Susp) 30 ml PO DAILY PRN PRN Reason: Constipation Melatonin (Melatonin 3 Mg Tablet) 6 mg PO BEDTIME PRN PRN Reason: Insomnia Last Admin: 12/24/23 21:45 Dose: 6 mg Documented By: SHIRA Comments: pt request for sleep Sodium Chloride (0.9 % Sodium Chloride Flush 3 Ml Syringe) [facility] Last Admin: 12/25/23 07:46 Dose: 3 ml Documented By: AISHWARYA Tamsulosin HCl (Tamsulosin Hcl 0.4 Mg Capsule) 0.4 mg PO BEDTIME [facility] Last Admin: 12/24/23 21:34 Dose: 0.4 mg Documented By: SHIRA Topiramate (Topiramate 25 Mg Tablet) 50 mg PO BID [facility] Last Admin: 12/25/23 07:45 Dose: 50 mg Documented By: AISHWARYA Labs 12/25/23 06:04 12/25/23 06:04 Labs: Laboratory Results - last 24 hr 12/24/23 12/24/23 12/24/23 13:40 16:27 20:42 MCV MCH MCHC RDW Plt Count MPV Absolute Nucleated RBC Nucleated RBC % (auto) Anion Gap Estim Creat Clear Calc Estimated GFR POC Glucose 126 H 112 Random Glucose Calcium Nasal Screen MRSA (PCR) POSITIVE A Nasal S. aureus Screen POSITIVE A Nasal MRSA/S.aureus Interp SEE NOTE Random Vancomycin 12/24/23 12/25/23 12/25/23 21:10 06:04 06:04 MCV 85.9 MCH 26.8 L MCHC 31.2 RDW 13.9 Plt Count 154 L MPV 11.4 Absolute Nucleated RBC 0.000 Nucleated RBC % (auto) 0.0 Anion Gap 13 Estim Creat Clear Calc 74.4 Cancelled Estimated GFR > 60 POC Glucose Random Glucose Calcium Nasal Screen MRSA (PCR) Nasal S. aureus Screen Nasal MRSA/S.aureus Interp Random Vancomycin 5.8 L 12/25/23 12/25/23 12/25/23 06:04 07:31 11:36 MCV MCH MCHC RDW Plt Count MPV Absolute Nucleated RBC Nucleated RBC % (auto) Anion Gap Estim Creat Clear Calc Estimated GFR Cancelled POC Glucose 141 H 141 H Random Glucose 154 H Calcium 9.3 Nasal Screen MRSA (PCR) Nasal S. aureus Screen Nasal MRSA/S.aureus Interp Random Vancomycin Microbiology Microbiology Results: Microbiology 12/23/23 Unknown Gram Stain - Final Cerebrospinal Fluid CSF Examination - Final Fluid Description - Final CSF Culture - Preliminary No growth after 2 days Assessment and Plan (1) Toxic metabolic encephalopathy: Status: Acute (2) Sepsis: Status: Acute (3) Paranoid ideation: Status: Acute (4) Cellulitis of left leg: Status: Acute (5) Delirium: Status: Acute Plan This is a 63-year-old female with pertinent history of mood disorder, insulin- dependent diabetes mellitus, SHANNAN, COPD not on home oxygen, gastroesophageal reflux disease, tubular fracture of left lower extremity 11/09/2023 with ORIF at [facility] who presents to the emergency department from nursing facility for evaluation of altered mentation. # Acute toxic metabolic encephalopathy 2/2 Sepsis due to LLE cellulitis OR acute Serotonin syndrome (or both?) On Duloxetine, Trazodone, Bupropion among others that might be causing Serotonin syndrome. On Hold CSF analysis negative for infection, negative encephalitis panel Blood cultures negative Elevated CRP, ESR and Procalcitonin still raising question of infection pending Tick borne disease, HIV, Hep C load, [place] Lorazepam IV PRN for possible Serotonin syndrome; last dose on 12/23 LLE looked worse after narrowing down to Doxycycline only; Broaden to Clindamycin but had to Add Cefepime as it worsened in few hours even more Today LLE looks little better. CT scan LLE not showing any abscess ID evaluation, Switch to Clindamycin for now Neurology input, treat infx Orthopedic input; outpatient follow up after finishing treatment for infection, no intervention now Continue Clindamycin and Cefepime: To discuss to ID PO Tylenol for fever with cooling device Close monitoring Start PT Psychiatry consult for home medications review and advice # Headache likely related to recent LP encourage PO fluids, give IV if needed and use pain meds prn # Paranoia in a patient with mood disorder Consulting Psychiatry to optimize medications once more alert # Insulin-dependent diabetes mellitus with hyperglycemia:Initiating Accu-Cheks with SSI # COPD: No exacerbation during admission. Continue home inhalers # Gastroesophageal reflux disease: On PPI # Tibia/fibular fracture status post ORIF, to do PT once medically stable DVT prophylaxis: SCDs Full code The patient will need overnight stay for further work up and treatment with IV antibiotics and Benzodiazepines, pending specialist evaluation which is not possible in a lesser acute setting. Quality Stroke Does the patient have a stroke diagnosis?: No VTE Prior VTE?: No VTE Risk Level:: Medical - moderate - high VTE Device Contraindication: Treatment Not Indicated VTE Drug Contraindication: N/A - Med Ordered
--- NOTE | 2023-12-25 12:56 | MHC.CM.PN ---
Per ROUNDS discussion, Patient will receive a PSYCH Eval and is not yet medically cleared for dc. Returning to [facility] is the goal and CM will continue to follow.
--- NOTE | 2023-12-25 14:17 | W.PM.IDCN ---
History of Present Illness Data of Consult Service Date: 12/23/23 Requesting physician: Tristin Amaya Primary Care Provider: Ethan Lepe MD HPI Reason for consult: fever of unknown origin She presents with confusion and temperature 104 on 12/20. She was given IV antibiotics and LP was done which is unremarkable. She has been on multiple medications for pain. She has had initial some mild LLE cellulitis Review of Systems Review of Systems: Yes Unobtainable due to mental status PMFSH Past Medical History Medical History Diabetes Hepatitis GERD (gastroesophageal reflux disease) Neuropathy Fibromyalgia Depression Sleep apnea Asthma Elevated cholesterol HTN (hypertension) Family History Family history: reviewed and not pertinent Surgical History Surgical History History of esophagogastroduodenoscopy (EGD) H/O colonoscopy S/P insertion of spinal cord stimulator Hx of excision of mass Hx of hernia repair Social History Social History Household Members: None Housing: [place]way Do you presently have visiting nurse or other home services: No (currently at [facility]) Alcohol intake: current Alcohol intake frequency: does not drink Alcohol type: wine 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 Patient Tobacco Use Status: Tobacco use Unknown Cigarette Packs Per Day: 1 Cigarettes Per Day: 24 Years Smoked: 48 Substance Use Type: Marijuana Advance Directives Date on File: 12/23/23 service: No Meds Allergies Allergy/AdvReac Type Severity Reaction Status Date / Time iodine Allergy Severe THROAT Verified 12/21/23 19:08 CLOSES ibuprofen AdvReac Intermediate UPSET Verified 12/21/23 19:08 STOMACH Active Medications: Current Medications Acetaminophen (Acetaminophen 325 Mg Tablet) 975 mg PO Q6H PRN PRN Reason: Fever Last Admin: 12/25/23 03:03 Dose: 975 mg Acetaminophen/Butalbital/Caffeine (Butalb/Acetamin/Caff 50/325/40 Tablet) 1 tab PO Q4H PRN PRN Reason: Headache Albuterol Sulfate (Albuterol Sulfate (0.083%) 2.5 Mg/3 Ml Vial.Neb) 2.5 mg INHALE Q4H PRN PRN Reason: Shortness of Breath/Wheezing Aspirin (Aspirin Enteric Coated 81 Mg Tablet.Dr) 81 mg PO DAILY [facility] Last Admin: 12/25/23 07:46 Dose: 81 mg Atorvastatin Calcium (Atorvastatin Calcium 20 Mg Tablet) 20 mg PO BEDTIME [facility] Last Admin: 12/24/23 21:34 Dose: 20 mg Calcium Carbonate (Calcium Carbonate 750 Mg Tab.Chew) 750 mg PO Q4H PRN PRN Reason: Heartburn Glucose (Glucose Gel 15 Gm Gel..Gram.) 15 gm PO Q15M PRN; Protocol PRN Reason: per Hypoglycemia Standing Ord. Dextrose (D10) 250 mls @ 750 mls/hr IV Q15M PRN; Protocol PRN Reason: per Hypoglycemia Standing Ord. Clindamycin Phosphate (Cleocin) 300 mg in 50 mls @ 100 mls/hr IV Q6H [facility] Last Infusion: 12/25/23 12:52 Dose: Infused Cefepime HCl 2 gm/ Sodium (Chloride) 50 mls @ 100 mls/hr IV Q8H [facility] Last Infusion: 12/25/23 11:04 Dose: Infused Insulin Human Lispro (Insulin Lispro 100 Unit/Ml 3 Ml Vial) 0 unit SUBCUT QIDACHS [facility]; Protocol Last Admin: 12/25/23 11:41 Dose: Not Given Labetalol HCl (Labetalol Hcl 100 Mg/20 Ml Vial) 10 mg IVPUSH Q6H PRN PRN Reason: SBP > 160 Lorazepam (Lorazepam 2 Mg/Ml Vial) 1 mg IVPUSH Q4H PRN PRN Reason: Restlessness Last Admin: 12/24/23 00:48 Dose: 1 mg Losartan Potassium (Losartan Potassium 50 Mg Tablet) 50 mg PO DAILY [facility]; Protocol Last Admin: 12/25/23 07:45 Dose: 50 mg Magnesium Hydroxide (Milk Of Magnesia 30 Ml Oral.Susp) 30 ml PO DAILY PRN PRN Reason: Constipation Melatonin (Melatonin 3 Mg Tablet) 6 mg PO BEDTIME PRN PRN Reason: Insomnia Last Admin: 12/24/23 21:45 Dose: 6 mg Sodium Chloride (0.9 % Sodium Chloride Flush 3 Ml Syringe) 3 ml IVFLUSH QSHIFT [facility] Last Admin: 12/25/23 07:46 Dose: 3 ml Tamsulosin HCl (Tamsulosin Hcl 0.4 Mg Capsule) 0.4 mg PO BEDTIME [facility] Last Admin: 12/24/23 21:34 Dose: 0.4 mg Topiramate (Topiramate 25 Mg Tablet) 50 mg PO BID [facility] Last Admin: 12/25/23 07:45 Dose: 50 mg Home Medications ?Medication ?Instructions ?Recorded ?Confirmed ?Last Taken ?Type atorvastatin 20 mg tablet 20 mg PO BEDTIME 04/05/20 12/22/23 Unknown History bupropion HCl 150 mg 24 hr tablet, 150 mg PO DAILY 04/05/20 12/22/23 Unknown History extended release (Wellbutrin XL) insulin detemir U-100 100 unit/mL 34 unit subcut BEDTIME 04/05/20 12/22/23 Unknown History subcutaneous solution (Levemir U-100 Insulin) metformin 500 mg tablet 500 mg PO DAILY 04/05/20 12/22/23 Unknown History trazodone 100 mg tablet 100 mg PO BEDTIME 04/05/20 12/22/23 Unknown History Saccharomyces boulardii 10 billion 10,000 mmu cells PO BID 12/22/23 12/22/23 Unknown History cell capsule acetaminophen 325 mg tablet 650 mg PO Q4H PRN Pain 12/22/23 12/22/23 Unknown History (Tylenol) albuterol sulfate 90 mcg/actuation 2 puff inhalation Q6H PRN wheezing 12/22/23 12/22/23 Unknown History aerosol inhaler (Ventolin HFA) aspirin 81 mg tablet,delayed 81 mg PO DAILY 12/22/23 12/22/23 Unknown History release bisacodyl 10 mg rectal suppository 10 mg DC DAILY PRN Constipation 12/22/23 12/22/23 Unknown History cetirizine 10 mg tablet 10 mg PO DAILY 12/22/23 12/22/23 Unknown History docusate sodium 100 mg capsule 100 mg PO BID 12/22/23 12/22/23 Unknown History duloxetine 60 mg capsule,delayed 60 mg PO BID 12/22/23 12/22/23 Unknown History release sprinkle famotidine 20 mg tablet 20 mg PO BEDTIME 12/22/23 12/22/23 Unknown History ferrous gluconate 324 mg (38 mg 324 mg PO DAILY 12/22/23 12/22/23 Unknown History iron) tablet fluticasone propionate 50 2 spray intranasal DAILY 12/22/23 12/22/23 Unknown History mcg/actuation nasal spray,suspension (Flonase Allergy Relief) insulin lispro 100 unit/mL 1 sliding scale dose subcut TIDAC 12/22/23 12/22/23 Unknown History subcutaneous solution losartan 50 mg tablet 50 mg PO DAILY 12/22/23 12/22/23 Unknown History magnesium hydroxide 400 mg/5 mL 30 ml PO DAILY PRN Constipation 12/22/23 12/22/23 Unknown History oral suspension (Milk of Magnesia) naloxone 4 mg/actuation nasal 4 mg intranasal Q3M PRN Opioid 12/22/23 12/22/23 Unknown History spray (Narcan) Overdose oxycodone 5 mg tablet 5 mg PO Q4H PRN Moderate Pain 12/22/23 12/22/23 Unknown History (Scale Score 5-6) oxycodone-acetaminophen 7.5 mg-325 1 tab PO DAILY 12/22/23 12/22/23 Unknown History mg tablet (Percocet) pantoprazole 40 mg tablet,delayed 40 mg PO DAILY@0630 12/22/23 12/22/23 Unknown History release pregabalin 100 mg capsule 100 mg PO TID 12/22/23 12/22/23 Unknown History riboflavin (vitamin B2) 100 mg 100 mg PO DAILY 12/22/23 12/22/23 Unknown History tablet riboflavin (vitamin B2) 400 mg 400 mg PO DAILY 12/22/23 12/22/23 Unknown History tablet sennosides 8.6 mg-docusate sodium 2 tab-cap PO BEDTIME 12/22/23 12/22/23 Unknown History 50 mg tablet (Senna with Docusate Sodium) sodium phosphates 19 gram-7 118 ml DC DAILY PRN Constipation 12/22/23 12/22/23 Unknown History gram/118 mL enema (Fleet Enema) sumatriptan succinate 100 mg tablet 100 mg PO DAILY PRN Migraine 12/22/23 12/22/23 Unknown History Headache tamsulosin 0.4 mg capsule 0.4 mg PO BEDTIME 12/22/23 12/22/23 Unknown History tizanidine 4 mg tablet 4 mg PO Q8H PRN Muscle Spasm 12/22/23 12/22/23 Unknown History topiramate 50 mg tablet 50 mg PO BID 12/22/23 12/22/23 Unknown History Physical Exam Vital Signs: Vital Signs: Last Vital Signs Temp 97.0 F 12/25/23 11:12 Pulse 82 12/25/23 11:12 Resp 18 12/25/23 11:12 BP 141/86 H 12/25/23 11:12 Pulse Ox 100 12/25/23 11:12 O2 Del Method Room Air 12/25/23 11:12 BMI result Body Mass Index 34.1 Extrem: Other: slight LLE cellulitis Results Labs 12/25/23 06:04 12/25/23 06:04 Labs: Short CBC 12/25/23 Range/Units 06:04 WBC 7.2 (4.8-10.8) X10*3/uL Hgb 8.2 L (12.0-16.0) g/dl Hct 26.3 L (37.0-47.0) % Plt Count 154 L (160-400) X10*3/uL BMP 12/25/23 12/25/23 06:04 06:04 Sodium 142 Potassium 3.0 L Chloride 112 H Carbon Dioxide 20 L BUN 12 Creatinine 0.86 Cancelled Calcium 9.3 Microbiology Microbiology Results: Microbiology 12/23/23 Unknown Cerebrospinal Fluid Gram Stain - Final 12/23/23 Unknown Cerebrospinal Fluid CSF Examination - Final 12/23/23 Unknown Cerebrospinal Fluid Fluid Description - Final 12/23/23 Unknown Cerebrospinal Fluid CSF Culture - Preliminary No growth after 2 days 12/21/23 19:43 Blood - Venous Blood Culture - Preliminary No growth after 48 hours. 12/21/23 19:38 Blood - Venous Blood Culture - Preliminary No growth after 48 hours. Assessment and Plan (1) Toxic metabolic encephalopathy: Status: Acute (2) Fever: Status: Acute (3) Sepsis: Status: Acute Plan Possible serotonin syndrome. It would be unusual to have fever with such mild cellulitis Can give Vancomycin or Doxycycline and Zosyn pending above. Await cultures. Optimize pain medication management to minimize serotonergic medication interaction.
[2023-12-25 15:21] VITALS: BP 138/67; PULSE 83; RESP 18; TEMP 36.7; O2SAT 99
--- NOTE | 2023-12-25 15:36 | P.CNPS_ITS ---
History of Present Illness Date of Service: t Chief Complaint: AMS Reason for Consult: R/O serotoninergic syndrome Requesting physician: Tristin Amaya Discussed with referring provider: Yes Sources of Information: patient interviewed, chart reviewed and crisis/core team assessment reviewed HPI Narrative: The patient is a 63-year-old Cym[place] female, only [place]utanese-speaking, , with a past history of a fracture that was transferred from the subacute rehab to the emergency room due to fever and altered mental status. It was clear that the patient had cellulitis and she needed IV antibiotics and inpatient level of care for her sepsis. The patient has several medical comorbidities such as obesity, SHANNAN, diabetes and high blood pressure. The patient has a long history of mood disorders, she had been treated as an outpatient several times and she has tried psychiatric medications in the past. On admission she was initially on Cymbalta and Topamax but it Cymbalta was discontinued due to the possibility of serotonergic syndrome. The assessment focused stain showed that the patient was on delirium, encephalopathy due to sepsis. Today she was assessed at bedside, chart review and case discussed with the primary team. The patient is alert, awake but she is slightly confused oriented to self, partially on place and time. The patient is pleasant, cooperative and states that she does not remember very well. Still encephalopathic. She is able to contract for safety and I explained her that is completely expected that she could be confused after being septic. The patient understood and she was able to contract for safety. Past Psychiatric History: hx mood disorder Medical Evaluation Reviewed: Yes Review of Systems Review of Systems Yes all other systems are reviewed and are negative [facility] Medical History Diabetes Hepatitis GERD (gastroesophageal reflux disease) Neuropathy Fibromyalgia Depression Sleep apnea Asthma Elevated cholesterol HTN (hypertension) Surgical History History of esophagogastroduodenoscopy (EGD) H/O colonoscopy S/P insertion of spinal cord stimulator Hx of excision of mass Hx of hernia repair Family History: Denies Social History: with good social support Substance History: Denies Diagnostics Vital Signs (24Hr): Vital Signs - 24 hr 12/24/23 19:22 12/24/23 23:32 12/25/23 03:22 Temperature 97.2 F 97.5 F 98.0 F Pulse Rate 92 82 82 Respiratory Rate 18 18 18 Blood Pressure 172/82 H 160/80 H 156/76 H Pulse Oximetry 100 99 98 Oxygen Delivery Method Room Air Room Air Room Air 12/25/23 07:11 12/25/23 11:12 12/25/23 15:21 Temperature 97.3 F 97.0 F 98.1 F Pulse Rate 62 82 83 Respiratory Rate 18 18 18 Blood Pressure 124/67 141/86 H 138/67 Pulse Oximetry 100 100 99 Oxygen Delivery Method Room Air Room Air Room Air BMI result Body Mass Index 34.1 Labs 12/25/23 06:04 12/25/23 06:04 Labs: Laboratory Results - last 48 hr 12/23/23 12/23/23 12/23/23 06:52 16:53 22:08 WBC RBC Hgb Hct MCV MCH MCHC RDW Plt Count MPV Absolute Nucleated RBC Nucleated RBC % (auto) ESR Sodium Potassium Chloride Carbon Dioxide Anion Gap BUN Creatinine Estim Creat Clear Calc Estimated GFR POC Glucose 93 Random Glucose Calcium Total Bilirubin Direct Bilirubin AST ALT Alkaline Phosphatase Total Creatine Kinase 173 H C-Reactive Protein Total Protein Albumin Procalcitonin Nasal Screen MRSA (PCR) Nasal S. aureus Screen Nasal MRSA/S.aureus Interp Random Vancomycin Acetaminophen < 3 HIV 1&2 Ab/P24 Ag 4thGn Nonreactive 12/24/23 12/24/23 12/24/23 00:10 06:11 06:11 WBC 8.8 RBC 3.30 L Hgb 8.8 L Hct 28.6 L MCV 86.7 MCH 26.7 L MCHC 30.8 L RDW 13.9 Plt Count 151 L MPV 11.7 Absolute Nucleated RBC 0.000 Nucleated RBC % (auto) 0.0 ESR 100 H Sodium 144 Potassium 3.3 Chloride 114 H Carbon Dioxide 18 L Anion Gap 15 BUN 17 H Creatinine 1.01 0.94 Estim Creat Clear Calc 63.3 Estimated GFR POC Glucose 111 Random Glucose Calcium Total Bilirubin Direct Bilirubin AST ALT Alkaline Phosphatase Total Creatine Kinase C-Reactive Protein Total Protein Albumin Procalcitonin Nasal Screen MRSA (PCR) Nasal S. aureus Screen Nasal MRSA/S.aureus Interp Random Vancomycin Acetaminophen HIV 1&2 Ab/P24 Ag 4thGn 12/24/23 12/24/23 12/24/23 06:11 06:11 06:55 WBC RBC Hgb Hct MCV MCH MCHC RDW Plt Count MPV Absolute Nucleated RBC Nucleated RBC % (auto) ESR Sodium Potassium Chloride Carbon Dioxide Anion Gap BUN Creatinine Estim Creat Clear Calc 68.1 Estimated GFR 55 60 POC Glucose 129 H Random Glucose 142 H Calcium 9.3 Total Bilirubin 0.4 Direct Bilirubin 0.2 AST 23 ALT 16 Alkaline Phosphatase 76 Total Creatine Kinase C-Reactive Protein 19.76 H Total Protein 7.0 Albumin 3.5 Procalcitonin Nasal Screen MRSA (PCR) Nasal S. aureus Screen Nasal MRSA/S.aureus Interp Random Vancomycin Acetaminophen HIV 1&2 Ab/P24 Ag 4thGn 12/24/23 12/24/23 12/24/23 09:39 11:29 13:40 WBC RBC Hgb Hct MCV MCH MCHC RDW Plt Count MPV Absolute Nucleated RBC Nucleated RBC % (auto) ESR Sodium Potassium Chloride Carbon Dioxide Anion Gap BUN Creatinine Estim Creat Clear Calc Estimated GFR POC Glucose 135 H Random Glucose Calcium Total Bilirubin Direct Bilirubin AST ALT Alkaline Phosphatase Total Creatine Kinase C-Reactive Protein Total Protein Albumin Procalcitonin 2.26 Nasal Screen MRSA (PCR) POSITIVE A Nasal S. aureus Screen POSITIVE A Nasal MRSA/S.aureus Interp SEE NOTE Random Vancomycin Acetaminophen HIV 1&2 Ab/P24 Ag 4thGn 12/24/23 12/24/23 12/24/23 16:27 20:42 21:10 WBC RBC Hgb Hct MCV MCH MCHC RDW Plt Count MPV Absolute Nucleated RBC Nucleated RBC % (auto) ESR Sodium Potassium Chloride Carbon Dioxide Anion Gap BUN Creatinine Estim Creat Clear Calc Estimated GFR POC Glucose 126 H 112 Random Glucose Calcium Total Bilirubin Direct Bilirubin AST ALT Alkaline Phosphatase Total Creatine Kinase C-Reactive Protein Total Protein Albumin Procalcitonin Nasal Screen MRSA (PCR) Nasal S. aureus Screen Nasal MRSA/S.aureus Interp Random Vancomycin 5.8 L Acetaminophen HIV 1&2 Ab/P24 Ag 4thGn 12/25/23 12/25/23 12/25/23 06:04 06:04 06:04 WBC 7.2 RBC 3.06 L Hgb 8.2 L Hct 26.3 L MCV 85.9 MCH 26.8 L MCHC 31.2 RDW 13.9 Plt Count 154 L MPV 11.4 Absolute Nucleated RBC 0.000 Nucleated RBC % (auto) 0.0 ESR Sodium 142 Potassium 3.0 L Chloride 112 H Carbon Dioxide 20 L Anion Gap 13 BUN 12 Creatinine 0.86 Cancelled Estim Creat Clear Calc 74.4 Cancelled Estimated GFR > 60 POC Glucose Random Glucose Calcium Total Bilirubin Direct Bilirubin AST ALT Alkaline Phosphatase Total Creatine Kinase C-Reactive Protein Total Protein Albumin Procalcitonin Nasal Screen MRSA (PCR) Nasal S. aureus Screen Nasal MRSA/S.aureus Interp Random Vancomycin Acetaminophen HIV 1&2 Ab/P24 Ag 4thGn 12/25/23 12/25/23 12/25/23 06:04 07:31 11:36 WBC RBC Hgb Hct MCV MCH MCHC RDW Plt Count MPV Absolute Nucleated RBC Nucleated RBC % (auto) ESR Sodium Potassium Chloride Carbon Dioxide Anion Gap BUN Creatinine Estim Creat Clear Calc Estimated GFR Cancelled POC Glucose 141 H 141 H Random Glucose 154 H Calcium 9.3 Total Bilirubin Direct Bilirubin AST ALT Alkaline Phosphatase Total Creatine Kinase C-Reactive Protein Total Protein Albumin Procalcitonin Nasal Screen MRSA (PCR) Nasal S. aureus Screen Nasal MRSA/S.aureus Interp Random Vancomycin Acetaminophen HIV 1&2 Ab/P24 Ag 4thGn Imaging Radiology Impressions: ITS Impressions Tibia/Fibula X-Ray 12/21/23 21:17 IMPRESSION: * No periosteal reaction, cortical erosion, focal osteopenia to suggest osteomyelitis. * Proximal fibular and distal fibular fractures. * Tibial ORIF without evidence of hardware complication. * Posterior soft tissue swelling. Head CT 12/21/23 21:27 IMPRESSION: No acute intracranial pathology. Chest X-Ray 12/21/23 22:20 IMPRESSION: No acute cardiopulmonary disease. Lumbar Spine X-Ray 12/22/23 17:57 IMPRESSION: * Spinal stimulator leads are seen extending superiorly beyond the superior endplate of T10 vertebral body and out of field of view. * Mild spondylosis of the lumbar spine. Lumbar Puncture Fluoroscopy 12/23/23 11:50 IMPRESSION: Successful fluoroscopic guided lumbar puncture This procedure was performed by Frederick Padilla PA-C and supervised by Dr. Pike. Chest X-Ray 12/24/23 11:50 IMPRESSION: Hypoinflation of the lungs without airspace consolidation. Lower Extremity CT 12/24/23 18:56 IMPRESSION: 1. Diffuse soft tissue swelling and subcutaneous edema in the left lower leg. No discrete fluid collections are identified. Specifically, no appreciable abscess. 2. Healing fractures of the proximal and distal fibular diaphyses as well as the tibial shaft and tibial plafond status post ORIF. Mental Status Exam Mental Status Exam Patient Appearance: Appropriate (On hospital gowns) Patient Orientation: Person and Situation Level of Consciousness: Awake and Appropriate Patient Behavior: Guarded and Passive Mood Description: Withdrawn Affect Description: Constricted Patient Cognition Impaired: Yes Ability to Follow Directions: Good Speech Pattern: Clear Hallucinations: None Delusions: Ideas of Reference Thought Process: Distracted Thought Content: positive for [place] and positive for Poverty of Content Judgement: Poor Medications Medications Current Medications Acetaminophen (Acetaminophen 325 Mg Tablet) 975 mg PO Q6H PRN PRN Reason: Fever Last Admin: 12/25/23 03:03 Dose: 975 mg Acetaminophen/Butalbital/Caffeine (Butalb/Acetamin/Caff 50/325/40 Tablet) 1 tab PO Q4H PRN PRN Reason: Headache Albuterol Sulfate (Albuterol Sulfate (0.083%) 2.5 Mg/3 Ml Vial.Glory) 2.5 mg INHALE Q4H PRN PRN Reason: Shortness of Breath/Wheezing Aspirin (Aspirin Enteric Coated 81 Mg Tablet.) 81 mg PO DAILY [facility] Last Admin: 12/25/23 07:46 Dose: 81 mg Atorvastatin Calcium (Atorvastatin Calcium 20 Mg Tablet) 20 mg PO BEDTIME [facility] Last Admin: 12/24/23 21:34 Dose: 20 mg Calcium Carbonate (Calcium Carbonate 750 Mg Tab.Chew) 750 mg PO Q4H PRN PRN Reason: Heartburn Glucose (Glucose Gel 15 Gm Gel..Gram.) 15 gm PO Q15M PRN; Protocol PRN Reason: per Hypoglycemia Standing Ord. Dextrose (D10) 250 mls @ 750 mls/hr IV Q15M PRN; Protocol PRN Reason: per Hypoglycemia Standing Ord. Clindamycin Phosphate (Cleocin) 300 mg in 50 mls @ 100 mls/hr IV Q6H [facility] Last Infusion: 12/25/23 12:52 Dose: Infused Cefepime HCl 2 gm/ Sodium (Chloride) 50 mls @ 100 mls/hr IV Q8H [facility] Last Infusion: 12/25/23 11:04 Dose: Infused Insulin Human Lispro (Insulin Lispro 100 Unit/Ml 3 Ml Vial) 0 unit SUBCUT QIDACHS [facility]; Protocol Last Admin: 12/25/23 11:41 Dose: Not Given Labetalol HCl (Labetalol Hcl 100 Mg/20 Ml Vial) 10 mg IVPUSH Q6H PRN PRN Reason: SBP > 160 Lorazepam (Lorazepam 2 Mg/Ml Vial) 1 mg IVPUSH Q4H PRN PRN Reason: Restlessness Last Admin: 12/24/23 00:48 Dose: 1 mg Losartan Potassium (Losartan Potassium 50 Mg Tablet) 50 mg PO DAILY [facility]; Protocol Last Admin: 12/25/23 07:45 Dose: 50 mg Magnesium Hydroxide (Milk Of Magnesia 30 Ml Oral.Susp) 30 ml PO DAILY PRN PRN Reason: Constipation Melatonin (Melatonin 3 Mg Tablet) 6 mg PO BEDTIME PRN PRN Reason: Insomnia Last Admin: 12/24/23 21:45 Dose: 6 mg Sodium Chloride (0.9 % Sodium Chloride Flush 3 Ml Syringe) 3 ml IVFLUSH QSHIFT [facility] Last Admin: 12/25/23 07:46 Dose: 3 ml Tamsulosin HCl (Tamsulosin Hcl 0.4 Mg Capsule) 0.4 mg PO BEDTIME [facility] Last Admin: 12/24/23 21:34 Dose: 0.4 mg Topiramate (Topiramate 25 Mg Tablet) 50 mg PO BID [facility] Last Admin: 12/25/23 07:45 Dose: 50 mg Allergies Allergies Allergy/AdvReac Type Severity Reaction Status Date / Time iodine Allergy Severe THROAT Verified 12/21/23 19:08 CLOSES ibuprofen AdvReac Intermediate UPSET Verified 12/21/23 19:08 STOMACH Assessment & Plan Assessment & Plan (1) Toxic metabolic encephalopathy: Status: Acute Code(s): G92.8 - Other toxic encephalopathy (2) Fever: Status: Acute Code(s): R50.9 - Fever, unspecified (3) Sepsis: Status: Acute Code(s): A41.9 - Sepsis, unspecified organism (4) Hallucinations, visual: Status: Acute Code(s): R44.1 - Visual hallucinations (5) Delirium: Status: Acute Code(s): R41.0 - Disorientation, unspecified (6) Cellulitis of left leg: Status: Acute Code(s): L03.116 - Cellulitis of left lower limb (7) Diabetes: Status: Acute Code(s): E11.9 - Type 2 diabetes mellitus without complications (8) GERD (gastroesophageal reflux disease): Status: Acute Code(s): K21.9 - Gastro-esophageal reflux disease without esophagitis (9) SHANNAN (obstructive sleep apnea): Status: Acute Code(s): G47.33 - Obstructive sleep apnea (adult) (pediatric) Plan The patient is a middle-aged [place] female, only Bhutanese-speaking who was initially admitted for cellulitis and sepsis after of leg fracture. The patient was initially extremely confused with psychotic symptoms in the context of her infectious process. She was treated with antibiotics IV and currently she looks much better from the 1st assessment of December 20. Diagnosis 1. Delirium, in process of resolving. 2. Mood disorder. Plan 1. Continue IV antibiotics and other medical treatment. 2. Continue Topamax. 3. At this moment do not restart Cymbalta until she is medically cleared and we can start the titration of Cymbalta as an outpatient. At this moment the patient does not have signs or symptoms of serotonergic syndrome. 4. Reassessment as demand. Total time managing care of this patient today _45___ minutes. Patient educated on: diagnosis Guardian/Caregiver educated on: diagnosis and therapeutic strategies Informed Consent: further education needed
[2023-12-25 16:15] LABS: Glucose, Whole Blood 126 mg/dL (60-115)
[2023-12-25 16:33] LABS: A. Phagocytphilium DNA,RT-PCR NOT DETECTED (NOT DETECTED); Babesia Microti DNA, RT-PCR NOT DETECTED (NOT DETECTED); Borrelia Miyamotoi,DNA RT-PCR NOT DETECTED (NOT DETECTED); E.Chaffeensis DNA RT-PCR NOT DETECTED (NOT DETECTED); Lyme(Borrelia ssp)DNA RT-PCR NOT DETECTED (NOT DETECTED)
[2023-12-25] MEDS: Butalb/Acetamin/Caff 50/325/40 TABLET 1 TAB PO (17:37)
[2023-12-25 19:20] VITALS: BP 181/79; PULSE 82; RESP 20; TEMP 36.9; O2SAT 95
[2023-12-25] MEDS: Atorvastatin Calcium 20 MG TABLET PO (21:55)
[2023-12-25] MEDS: Melatonin 3 MG TABLET 6 MG PO (21:55)
[2023-12-25] MEDS: Tamsulosin HCL 0.4 MG CAPSULE PO (21:55)
[2023-12-25 23:51] VITALS: BP 188/79; PULSE 79; RESP 20; TEMP 36.9; O2SAT 97
[2023-12-26] VITALS (10 sets, daily range): BP systolic 158–192; BP diastolic 69–83; PULSE 78–91; RESP 18–63; TEMP 36.2–36.8; O2SAT 98–100
[2023-12-26] MEDS: 0.9 % Sodium Chloride Flush 3 ML SYRINGE IVFLUSH (00:16)
[2023-12-26] MEDS: Labetalol HCL 100 MG/20 ML VIAL 10 MG IVPUSH (00:16)
[2023-12-26] MEDS: Clindamycin Phosphate/D5W 300 MG/50 ML PIGGYBACK 100 MG IV (00:57)
[2023-12-26] MEDS: LORazepam 2 MG/ML VIAL 1 MG IVPUSH ×2 (00:59→19:56)
[2023-12-26] MEDS: cefEPime HCl 2 GM in 0.9 % Sodium Chloride 50 ML IV ×2 (02:04→19:56)
[2023-12-26] MEDS: Acetaminophen 325 MG TABLET 975 MG PO ×2 (05:19→21:10)
[2023-12-26] MEDS: Losartan Potassium 50 MG TABLET PO (06:07)
--- NOTE | 2023-12-26 06:18 | PC.NURSE ---
[id number] [facility] [place] medical coding specialist utilized as patient initally declines medical coding specialist, allows attempt to have IV placed and then with increasing anxiety declines IV access as RN as is attempting to obtain access with vein finder. [facility] [place] medical coding specialist called to bedside as patient now refusing care, self ambulates herself to chair and appears very anxious. In speaking to patient with [facility] medical coding specialist patient is offered comfort and support. Offered to patient to speak to her family and if one of them is available it would be permissible to have them come and provide support for her during the night. Pt said she could ask but her daughter's work . Also explained to the patient that before any test/procedures to have medical coding specialist utilized instead of declined to better assist in providing her the best care for her. Patient reports she is anxious and cannot help it at times . Words of encouragement and support provided and offered to reach out to Dr. Zheng to address her anxiety and elevated BP. Pt agreeable and at this point sitting in recliner, legs elevated with blanket. Dr. Zheng notified and orders as documented.
[2023-12-26] MEDS: LORazepam 0.5 MG TABLET 0.25 MG PO (06:34)
[2023-12-26 07:01] LABS: Glucose, Whole Blood 184 mg/dL (60-115)
[2023-12-26 07:53] LABS: Hematocrit 26.4 % (37.0-47.0); Hemoglobin 8.4 g/dl (12.0-16.0); Mean Corpuscular HGB Conc 31.8 g/dl (31.0-35.0); Mean Corpuscular Hemoglobin 27.1 pg (27.0-33.0); Mean Corpuscular Volume 85.2 fL (80.0-98.0); Mean Platelet Volume 11.1 fL (9.4-12.3); Platelet Count 156 X10*3/uL (160-400); Red Cell Distribution Width 13.9 % (11.0-16.0); White Blood Count 7.2 X10*3/uL (4.8-10.8)
[2023-12-26 08:11] LABS: Alanine Aminotransferase 22 U/L (0-31); Albumin Level 3.4 g/dL (3.5-5.0); Alkaline Phosphatase 63 U/L (39-117); Anion Gap 16 (12-20); Aspartate Amino Transferase 28 U/L (5-31); Bilirubin Direct 0.2 mg/dL (0.0-0.5); Bilirubin Total 0.4 mg/dL (0.0-1.0); Blood Urea Nitrogen 12 mg/dL (9-16); C Reactive Protein 8.23 mg/dL (< or = 0.50); Calcium 9.2 mg/dL (8.4-10.2); Carbon Dioxide 17 mmol/L (22-29); Chloride 112 mmol/L (96-108); Creatinine Clr Calc Pharmacy 68.1; Estimated Glomerular Filt Rate 60; Glucose Random 178 mg/dL (60-115); Potassium 3.1 mmol/L (3.3-5.1); Sodium 142 mmol/L (135-145); Total Protein 6.7 g/dL (6.5-8.0)
[2023-12-26 08:48] LABS: HCV Log PCR <1.18 NOT DETECTED Log IU/mL (NOT DETECTED); HepC Viral Load <15 NOT DETECTED IU/mL (NOT DETECTED)
[2023-12-26] MEDS: Aspirin Enteric Coated 81 MG TABLET.DR PO (09:25)
[2023-12-26] MEDS: Topiramate 25 MG TABLET 50 MG PO ×2 (09:25→21:10)
[2023-12-26] MEDS: Insulin Lispro 100 UNIT/ML 3 ML VIAL SUBCUT (09:25)
--- NOTE | 2023-12-26 11:25 | P.PNIM_ITS ---
Subjective Subjective Date of Service: 12/26/23 Interval History: continues to improved, more alert, better insight Physical Exam 2 Vital Signs: Vital Signs: Last Vital Signs Temp 97.1 F 12/26/23 08:00 Pulse 85 12/26/23 08:00 Resp 20 12/26/23 08:00 BP 163/69 H 12/26/23 08:00 Pulse Ox 100 12/26/23 08:00 O2 Del Method Room Air 12/26/23 08:00 BMI result Body Mass Index 34.1 Extrem: Other: slight LLE cellulitis Objective Data Active Medications Acetaminophen (Acetaminophen 325 Mg Tablet) 975 mg PO Q6H PRN PRN Reason: Fever Last Admin: 12/26/23 05:19 Dose: 975 mg Documented By: SHIRA Acetaminophen/Butalbital/Caffeine (Butalb/Acetamin/Caff 50/325/40 Tablet) 1 tab PO Q4H PRN PRN Reason: Headache Last Admin: 12/25/23 17:37 Dose: 1 tab Documented By: AISHWARYA Albuterol Sulfate (Albuterol Sulfate (0.083%) 2.5 Mg/3 Ml Vial.Glory) 2.5 mg INHALE Q4H PRN PRN Reason: Shortness of Breath/Wheezing Aspirin (Aspirin Enteric Coated 81 Mg Tablet.) 81 mg PO DAILY [facility] Last Admin: 12/26/23 09:25 Dose: 81 mg Documented By: AISHWARYA Atorvastatin Calcium (Atorvastatin Calcium 20 Mg Tablet) 20 mg PO BEDTIME [facility] Last Admin: 12/25/23 21:55 Dose: 20 mg Documented By: HEYDI Calcium Carbonate (Calcium Carbonate 750 Mg Tab.Chew) 750 mg PO Q4H PRN PRN Reason: Heartburn Glucose (Glucose Gel 15 Gm Gel..Gram.) 15 gm PO Q15M PRN; Protocol PRN Reason: per Hypoglycemia Standing Ord. Guaifenesin (Guaifenesin 200 Mg/10 Ml 10 Ml Liquid) 10 ml PO Q4H PRN PRN Reason: Cough Dextrose (D10) 250 mls @ 750 mls/hr IV Q15M PRN; Protocol PRN Reason: per Hypoglycemia Standing Ord. Clindamycin Phosphate (Cleocin) 300 mg in 50 mls @ 100 mls/hr IV Q6H [facility] Last Infusion: 12/26/23 02:02 Dose: Infused Documented By: SHIRA Cefepime HCl 2 gm/ Sodium (Chloride) 50 mls @ 100 mls/hr IV Q8H [facility] Last Infusion: 12/26/23 03:45 Dose: Infused Documented By: SHIRA Insulin Human Lispro (Insulin Lispro 100 Unit/Ml 3 Ml Vial) 0 unit SUBCUT QIDACHS [facility]; Protocol Last Admin: 12/26/23 09:25 Dose: 2 unit Documented By: AISHWARYA Labetalol HCl (Labetalol Hcl 100 Mg/20 Ml Vial) 10 mg IVPUSH Q6H PRN PRN Reason: SBP > 160 Last Admin: 12/26/23 00:16 Dose: 10 mg Documented By: SHIRA Lorazepam (Lorazepam 2 Mg/Ml Vial) 1 mg IVPUSH Q4H PRN PRN Reason: Restlessness Last Admin: 12/26/23 00:59 Dose: 1 mg Documented By: SHIRA Comments: Anxiety unable to sleep Losartan Potassium (Losartan Potassium 50 Mg Tablet) 50 mg PO DAILY [facility]; Protocol Last Admin: 12/26/23 06:07 Dose: 50 mg Documented By: SHIRA Comments: Ordered to give early per Dr. Zheng Magnesium Hydroxide (Milk Of Magnesia 30 Ml Oral.Susp) 30 ml PO DAILY PRN PRN Reason: Constipation Melatonin (Melatonin 3 Mg Tablet) 6 mg PO BEDTIME PRN PRN Reason: Insomnia Last Admin: 12/25/23 21:55 Dose: 6 mg Documented By: HEYDI Sodium Chloride (0.9 % Sodium Chloride Flush 3 Ml Syringe) 3 ml IVFLUSH QSHIFT [facility] Last Admin: 12/26/23 07:05 Dose: Not Given Documented By: AISHWARYA Non-Admin Reason: No Access Tamsulosin HCl (Tamsulosin Hcl 0.4 Mg Capsule) 0.4 mg PO BEDTIME [facility] Last Admin: 12/25/23 21:55 Dose: 0.4 mg Documented By: HEYDI Topiramate (Topiramate 25 Mg Tablet) 50 mg PO BID [facility] Last Admin: 12/26/23 09:25 Dose: 50 mg Documented By: AISHWARYA Labs 12/26/23 07:31 12/26/23 07:31 Labs: Laboratory Results - last 24 hr 12/23/23 12/25/23 12/25/23 22:08 11:36 16:12 MCV MCH MCHC RDW Plt Count MPV Absolute Nucleated RBC Nucleated RBC % (auto) Anion Gap Estim Creat Clear Calc Estimated GFR POC Glucose 141 H 126 H Random Glucose Calcium Total Bilirubin Direct Bilirubin AST ALT Alkaline Phosphatase C-Reactive Protein Total Protein Albumin A.phagocytophil DNA PCR NOT DETECTED Babesia microti DNA PCR NOT DETECTED Borrelia sp DNA (PCR) NOT DETECTED Borrelia miyamotoi (PCR) NOT DETECTED E.chaffeensis DNA (PCR) NOT DETECTED Hep C Viral Load <15 NOT DETECTED Hep C Viral Load Log <1.18 NOT DETECTED Tick-borne Disease PCR SEE NOTE 12/26/23 12/26/23 06:56 07:31 MCV 85.2 MCH 27.1 MCHC 31.8 RDW 13.9 Plt Count 156 L MPV 11.1 Absolute Nucleated RBC 0.000 Nucleated RBC % (auto) 0.0 Anion Gap 16 Estim Creat Clear Calc 68.1 Estimated GFR 60 POC Glucose 184 H Random Glucose 178 H Calcium 9.2 Total Bilirubin 0.4 Direct Bilirubin 0.2 AST 28 ALT 22 Alkaline Phosphatase 63 C-Reactive Protein 8.23 H Total Protein 6.7 Albumin 3.4 L A.phagocytophil DNA PCR Babesia microti DNA PCR Borrelia sp DNA (PCR) Borrelia miyamotoi (PCR) E.chaffeensis DNA (PCR) Hep C Viral Load Hep C Viral Load Log Tick-borne Disease PCR Microbiology Microbiology Results: Microbiology 12/23/23 Unknown Gram Stain - Final Cerebrospinal Fluid CSF Examination - Final Fluid Description - Final CSF Culture - Final No growth after 3 days. Assessment and Plan (1) Toxic metabolic encephalopathy: Status: Acute (2) Sepsis: Status: Acute (3) Paranoid ideation: Status: Acute (4) Cellulitis of left leg: Status: Acute (5) Delirium: Status: Acute Plan 63F PMH mood disorder, insulin-dependent diabetes mellitus, SHANNAN, COPD not on home oxygen, gastroesophageal reflux disease, tubular fracture of left lower extremity 11/09/2023 with ORIF at [facility] who presented to the emergency department from nursing facility for evaluation of altered mentation. Acute toxic metabolic encephalopathy 2/2 Sepsis due to LLE cellulitis and polypharmacy On Duloxetine, Trazodone, Bupropion now On Hold CSF analysis negative for infection, negative encephalitis panel Blood cultures negative Elevated CRP, ESR and Procalcitonin still raising question of infection will continue cefepime and change clinda to doxy, plan for 2-3 days iv abx, if remains fever free will change to po Insulin-dependent diabetes mellitus with hyperglycemia Accu-Cheks with SSI COPD No exacerbation during admission. Continue home inhalers Gastroesophageal reflux disease On PPI Tibia/fibular fracture status post ORIF, pt recommnending str at discharge DVT prophylaxis: lovenox Full code reason for continued hospitalization:monitoring for deferevesence Quality Stroke Does the patient have a stroke diagnosis?: No VTE Prior VTE?: No VTE Risk Level:: Medical - moderate - high VTE Device Contraindication: Treatment Not Indicated VTE Drug Contraindication: N/A - Med Ordered
[2023-12-26 11:39] LABS: Glucose, Whole Blood 123 mg/dL (60-115)
[2023-12-26] MEDS: Potassium Chloride ER 20 MEQ TAB.ER.PRT 40 MEQ PO (12:02)
[2023-12-26] MEDS: Enoxaparin Sodium 40 MG/0.4 ML SYRINGE SUBCUT (12:03)
--- NOTE | 2023-12-26 17:46 | HO.MIDLINE_ITS ---
Midline Insertion MIDLINE INSERTION Diagnosis: LLE Cellulitis Indication: IV access for antibiotics Pertinent Labs: reviewed Technique: Using sterile technique including cap and mask, glove and drape, the right arm was prepped and draped in the usual sterile fashion of full barrier technique with CHG. Using ultrasound guidance, right basilic vein access was obtained twice by Ysabel Parekh RN, but unable to advance guidewire. Right brachial vein access was then obtained by Vandana Trevino RN on second attempt. A 20G X 8CM non-PASV ST midline was positioned. The procedure was performed in S272. Ultrasound was used to document vein patency and for needle entry. A formal ultrasound picture was recorded. V[employer] Data Processing Mechanic has released the line for use and it is currently dressed with a StatLock, Tegaderm, and CHG disc. Verification has been performed for blood return and line patency. Arm Circumference: 33 CM Equipment: BARD PowerGlide ST Midline Catheter Type: 20G X 8 CM non-PASV Midline Lot #: [id number]
[2023-12-26 18:19] LABS: Glucose, Whole Blood 106 mg/dL (60-115)
--- NOTE | 2023-12-26 19:10 | PC.NURSE ---
patient came back from midline insertion at 1820 and refusing to get blood pressure recheck and to take medications. patient educated blood pressure is elevated and the importance of checking the blood pressure. patient continued to refuse, made MD aware.
[2023-12-26 20:39] LABS: Glucose, Whole Blood 113 mg/dL (60-115)
[2023-12-26] MEDS: Atorvastatin Calcium 20 MG TABLET PO (21:09)
[2023-12-26] MEDS: Melatonin 3 MG TABLET 6 MG PO (21:09)
[2023-12-26] MEDS: Tamsulosin HCL 0.4 MG CAPSULE PO (21:10)
[2023-12-26] MEDS: Doxycycline Hyclate 100 MG in 0.9 % Sodium Chloride 250 ML 166.67 MG IV (21:11)
[2023-12-27] VITALS (8 sets, daily range): BP systolic 154–182; BP diastolic 70–82; PULSE 75–82; RESP 18–20; TEMP 36.2–36.5; O2SAT 98–100
[2023-12-27] MEDS: Labetalol HCL 100 MG/20 ML VIAL 10 MG IVPUSH (00:22)
[2023-12-27] MEDS: Acetaminophen 325 MG TABLET 975 MG PO ×4 (04:27→23:46)
[2023-12-27] MEDS: cefEPime HCl 2 GM in 0.9 % Sodium Chloride 50 ML IV ×3 (04:27→20:13)
[2023-12-27] MEDS: amLODIPine Besylate 5 MG TABLET PO (06:30)
[2023-12-27] MEDS: Losartan Potassium 50 MG TABLET PO (06:30)
[2023-12-27 06:41] LABS: Mean Corpuscular Hemoglobin 26.5 pg (27.0-33.0); Mean Corpuscular Volume 85.3 fL (80.0-98.0); Mean Platelet Volume 10.9 fL (9.4-12.3); Platelet Count 219 X10*3/uL (160-400); Red Cell Distribution Width 13.8 % (11.0-16.0); White Blood Count 9.6 X10*3/uL (4.8-10.8)
[2023-12-27 06:50] LABS: Anion Gap 18 (12-20); Blood Urea Nitrogen 9 mg/dL (9-16); Calcium 9.4 mg/dL (8.4-10.2); Carbon Dioxide 17 mmol/L (22-29); Chloride 112 mmol/L (96-108); Creatinine Clr Calc Pharmacy 75.3; Estimated Glomerular Filt Rate > 60; Glucose Fasting 128 mg/dL (60-99); Potassium 3.3 mmol/L (3.3-5.1); Sodium 144 mmol/L (135-145)
[2023-12-27 07:59] LABS: Glucose, Whole Blood 134 mg/dL (60-115)
[2023-12-27] MEDS: Topiramate 25 MG TABLET 50 MG PO ×2 (08:35→20:14)
[2023-12-27] MEDS: Aspirin Enteric Coated 81 MG TABLET.DR PO (08:35)
[2023-12-27] MEDS: Potassium Chloride ER 20 MEQ TAB.ER.PRT 40 MEQ PO (08:35)
[2023-12-27] MEDS: Doxycycline Hyclate 100 MG in 0.9 % Sodium Chloride 250 ML 166.67 MG IV ×2 (08:38→21:57)
[2023-12-27] MEDS: Heparin Sodium,Porcine Flush 50 UNITS, 0.9 % Sodium Chloride Flush 5 ML IVFLUSH ×4 (08:43→23:46)
--- NOTE | 2023-12-27 08:58 | P.PNIM_ITS ---
Subjective Subjective Date of Service: 12/27/23 Interval History: continues to improved, more alert, better insight Physical Exam 2 Vital Signs: Vital Signs: Last Vital Signs Temp 97.2 F 12/27/23 07:20 Pulse 76 12/27/23 07:20 Resp 20 12/27/23 07:20 BP 154/78 H 12/27/23 07:20 Pulse Ox 100 12/27/23 07:20 O2 Del Method Room Air 12/27/23 07:20 BMI result Body Mass Index 34.1 Extrem: Other: slight LLE cellulitis Objective Data Active Medications Acetaminophen (Acetaminophen 325 Mg Tablet) 975 mg PO Q6H PRN PRN Reason: Fever Last Admin: 12/27/23 04:27 Dose: 975 mg Documented By: MAYA Acetaminophen/Butalbital/Caffeine (Butalb/Acetamin/Caff 50/325/40 Tablet) 1 tab PO Q4H PRN PRN Reason: Headache Last Admin: 12/25/23 17:37 Dose: 1 tab Documented By: AISHWARYA Albuterol Sulfate (Albuterol Sulfate (0.083%) 2.5 Mg/3 Ml Vial.Neb) 2.5 mg INHALE Q4H PRN PRN Reason: Shortness of Breath/Wheezing Amlodipine Besylate (Amlodipine Besylate 5 Mg Tablet) 5 mg PO DAILY [facility]; Protocol Last Admin: 12/27/23 06:30 Dose: 5 mg Documented By: MAYA Aspirin (Aspirin Enteric Coated 81 Mg Tablet.Dr) 81 mg PO DAILY [facility] Last Admin: 12/27/23 08:35 Dose: 81 mg Documented By: MARYBETH Atorvastatin Calcium (Atorvastatin Calcium 20 Mg Tablet) 20 mg PO BEDTIME [facility] Last Admin: 12/26/23 21:09 Dose: 20 mg Documented By: MAYA Calcium Carbonate (Calcium Carbonate 750 Mg Tab.Chew) 750 mg PO Q4H PRN PRN Reason: Heartburn Heparin Sodium (Porcine) 50 (units/ Sodium Chloride 5 ml) 0 units IVFLUSH QSHIFT [facility] Last Admin: 12/27/23 08:43 Dose: 50 unit Documented By: MARYBETH Enoxaparin Sodium (Enoxaparin Sodium 40 Mg/0.4 Ml Syringe) 40 mg SUBCUT Q24H [facility] Last Admin: 12/26/23 12:03 Dose: 40 mg Documented By: AISHWARYA Glucose (Glucose Gel 15 Gm Gel..Gram.) 15 gm PO Q15M PRN; Protocol PRN Reason: per Hypoglycemia Standing Ord. Guaifenesin (Guaifenesin 200 Mg/10 Ml 10 Ml Liquid) 10 ml PO Q4H PRN PRN Reason: Cough Dextrose (D10) 250 mls @ 750 mls/hr IV Q15M PRN; Protocol PRN Reason: per Hypoglycemia Standing Ord. Cefepime HCl 2 gm/ Sodium (Chloride) 50 mls @ 100 mls/hr IV Q8H [facility] Last Infusion: 12/27/23 04:57 Dose: Infused Documented By: MAYA Doxycycline Hyclate 100 mg/ (Sodium Chloride) 250 mls @ 166.67 mls/hr IV Q12H [facility] Last Admin: 12/27/23 08:38 Dose: 166.67 mls/hr Documented By: MARYBETH Insulin Human Lispro (Insulin Lispro 100 Unit/Ml 3 Ml Vial) 0 unit SUBCUT QIDACHS [facility]; Protocol Last Admin: 12/27/23 08:03 Dose: Not Given Documented By: MARYBETH Non-Admin Reason: No Insulin Coverage Labetalol HCl (Labetalol Hcl 100 Mg/20 Ml Vial) 10 mg IVPUSH Q6H PRN PRN Reason: SBP > 160 Last Admin: 12/27/23 00:22 Dose: 10 mg Documented By: MAYA Lorazepam (Lorazepam 2 Mg/Ml Vial) 1 mg IVPUSH Q4H PRN PRN Reason: Restlessness Last Admin: 12/26/23 19:56 Dose: 1 mg Documented By: MAYA Losartan Potassium (Losartan Potassium 50 Mg Tablet) 50 mg PO DAILY [facility]; Protocol Last Admin: 12/27/23 06:30 Dose: 50 mg Documented By: MAYA Magnesium Hydroxide (Milk Of Magnesia 30 Ml Oral.Susp) 30 ml PO DAILY PRN PRN Reason: Constipation Melatonin (Melatonin 3 Mg Tablet) 6 mg PO BEDTIME PRN PRN Reason: Insomnia Last Admin: 12/26/23 21:09 Dose: 6 mg Documented By: MAYA Sodium Chloride (0.9 % Sodium Chloride Flush 3 Ml Syringe) [facility] Last Admin: 12/27/23 08:28 Dose: Not Given Documented By: MARYBETH Non-Admin Reason: No Access Tamsulosin HCl (Tamsulosin Hcl 0.4 Mg Capsule) 0.4 mg PO BEDTIME [facility] Last Admin: 12/26/23 21:10 Dose: 0.4 mg Documented By: MAYA Topiramate (Topiramate 25 Mg Tablet) 50 mg PO BID [facility] Last Admin: 12/27/23 08:35 Dose: 50 mg Documented By: MARYBETH Labs 12/27/23 06:17 12/27/23 06:17 Labs: Laboratory Results - last 24 hr 12/26/23 12/26/23 12/26/23 11:34 18:10 20:31 MCV MCH MCHC RDW Plt Count MPV Absolute Nucleated RBC Nucleated RBC % (auto) Anion Gap Estim Creat Clear Calc Estimated GFR POC Glucose 123 H 106 113 Fasting Glucose Calcium 12/27/23 12/27/23 06:17 07:36 MCV 85.3 MCH 26.5 L MCHC 31.0 RDW 13.8 Plt Count 219 D MPV 10.9 Absolute Nucleated RBC 0.000 Nucleated RBC % (auto) 0.0 Anion Gap 18 Estim Creat Clear Calc 75.3 Estimated GFR > 60 POC Glucose 134 H Fasting Glucose 128 H Calcium 9.4 Microbiology Microbiology Results: Microbiology 12/21/23 19:43 Blood Culture - Final Blood - Venous No growth after 5 days. 12/21/23 19:38 Blood Culture - Final Blood - Venous No growth after 5 days. 12/23/23 Unknown Gram Stain - Final Cerebrospinal Fluid CSF Examination - Final Fluid Description - Final CSF Culture - Final No growth after 3 days. Assessment and Plan (1) Toxic metabolic encephalopathy: Status: Acute (2) Sepsis: Status: Acute (3) Paranoid ideation: Status: Acute (4) Cellulitis of left leg: Status: Acute (5) Delirium: Status: Acute Plan 63F PMH mood disorder, insulin-dependent diabetes mellitus, SHANNAN, COPD not on home oxygen, gastroesophageal reflux disease, tubular fracture of left lower extremity 11/09/2023 with ORIF at [facility] who presented to the emergency department from nursing facility for evaluation of altered mentation. Acute toxic metabolic encephalopathy 2/2 Sepsis due to LLE cellulitis and polypharmacy On Duloxetine, Trazodone, Bupropion now On Hold CSF analysis negative for infection, negative encephalitis panel Blood cultures negative Elevated CRP, ESR and Procalcitonin still raising question of infection continue cefepime and doxy, plan for 2-3 days iv abx, if remains fever free will change to po Insulin-dependent diabetes mellitus with hyperglycemia Accu-Cheks with SSI COPD No exacerbation during admission. Continue home inhalers Gastroesophageal reflux disease On PPI Tibia/fibular fracture status post ORIF, pt recommnending str at discharge DVT prophylaxis: lovenox Full code reason for continued hospitalization:monitoring for deferevesence Quality Stroke Does the patient have a stroke diagnosis?: No VTE Prior VTE?: No VTE Risk Level:: Medical - moderate - high VTE Device Contraindication: Treatment Not Indicated VTE Drug Contraindication: N/A - Med Ordered
[2023-12-27] MEDS: LORazepam 0.5 MG TABLET PO ×2 (09:52→23:46)
[2023-12-27 11:29] LABS: Glucose, Whole Blood 111 mg/dL (60-115)
[2023-12-27] MEDS: Enoxaparin Sodium 40 MG/0.4 ML SYRINGE SUBCUT (12:10)
--- NOTE | 2023-12-27 13:31 | MHC.CM.PN ---
EMR REVIEWED, PER HOSPITALIST PT WILL REMAIN INPT FOR 1-2 MORE DAYS FOR IV ABX, PLAN FOR PT TO RETURN TO [facility] TO CONT STR, SNF UPDATED AND CM WILL CONT TO FOLLOW DC NEEDS.
[2023-12-27 17:03] LABS: Glucose, Whole Blood 97 mg/dL (60-115)
[2023-12-27] MEDS: Tamsulosin HCL 0.4 MG CAPSULE PO (20:13)
[2023-12-27] MEDS: Atorvastatin Calcium 20 MG TABLET PO (20:13)
[2023-12-27] MEDS: Melatonin 3 MG TABLET 6 MG PO (20:13)
[2023-12-27 21:22] LABS: Glucose, Whole Blood 93 mg/dL (60-115)
[2023-12-28] VITALS (7 sets, daily range): BP systolic 114–180; BP diastolic 70–84; PULSE 76–98; RESP 17–20; TEMP 36–37.2; O2SAT 99–100
[2023-12-28] MEDS: cefEPime HCl 2 GM in 0.9 % Sodium Chloride 50 ML IV ×3 (04:13→17:33)
[2023-12-28] MEDS: LORazepam 2 MG/ML VIAL 1 MG IVPUSH ×2 (04:13→07:59)
[2023-12-28 06:17] LABS: Creatinine Clr Calc Pharmacy 76.2; Estimated Glomerular Filt Rate > 60
[2023-12-28 07:46] LABS: Glucose, Whole Blood 122 mg/dL (60-115)
[2023-12-28] MEDS: Aspirin Enteric Coated 81 MG TABLET.DR PO (07:58)
[2023-12-28] MEDS: Heparin Sodium,Porcine Flush 50 UNITS, 0.9 % Sodium Chloride Flush 5 ML IVFLUSH ×2 (07:58→16:39)
[2023-12-28] MEDS: amLODIPine Besylate 5 MG TABLET PO (07:58)
[2023-12-28] MEDS: Topiramate 25 MG TABLET 50 MG PO ×2 (07:59→20:49)
[2023-12-28] MEDS: 0.9 % Sodium Chloride Flush 3 ML SYRINGE IVFLUSH ×2 (07:59→16:39)
[2023-12-28] MEDS: Losartan Potassium 50 MG TABLET PO (07:59)
[2023-12-28] MEDS: Hydrocortisone 2.5 % Rectal Cr 30 GM TUBE 1 APPL PR (08:14)
--- NOTE | 2023-12-28 09:15 | HO.PM.IMPN ---
Subjective Subjective Date of Service: 12/28/23 Interval History: some improvement in LLE swelling and pain Physical Exam Vital Signs: Vital Signs: Last Vital Signs Temp 96.8 F 12/28/23 07:19 Pulse 89 12/28/23 07:19 Resp 18 12/28/23 07:19 BP 136/84 12/28/23 07:19 Pulse Ox 100 12/28/23 07:19 O2 Del Method Room Air 12/28/23 07:19 BMI result Body Mass Index 34.1 LLE erythema resolved, still with some swelling and tenderness Objective Data Active Medications Acetaminophen (Acetaminophen 325 Mg Tablet) 975 mg PO Q6H PRN PRN Reason: Fever Last Admin: 12/27/23 23:46 Dose: 975 mg Documented By: MAYA Acetaminophen/Butalbital/Caffeine (Butalb/Acetamin/Caff 50/325/40 Tablet) 1 tab PO Q4H PRN PRN Reason: Headache Last Admin: 12/25/23 17:37 Dose: 1 tab Documented By: AISHWARYA Albuterol Sulfate (Albuterol Sulfate (0.083%) 2.5 Mg/3 Ml Vial.Neb) 2.5 mg INHALE Q4H PRN PRN Reason: Shortness of Breath/Wheezing Amlodipine Besylate (Amlodipine Besylate 5 Mg Tablet) 5 mg PO DAILY [facility]; Protocol Last Admin: 12/28/23 07:58 Dose: 5 mg Documented By: AISHWARYA Aspirin (Aspirin Enteric Coated 81 Mg Tablet.Dr) 81 mg PO DAILY [facility] Last Admin: 12/28/23 07:58 Dose: 81 mg Documented By: AISHWARYA Atorvastatin Calcium (Atorvastatin Calcium 20 Mg Tablet) 20 mg PO BEDTIME [facility] Last Admin: 12/27/23 20:13 Dose: 20 mg Documented By: MAYA Calcium Carbonate (Calcium Carbonate 750 Mg Tab.Chew) 750 mg PO Q4H PRN PRN Reason: Heartburn Heparin Sodium (Porcine) 50 (units/ Sodium Chloride 5 ml) 0 units IVFLUSH QSHIFT [facility] Last Admin: 12/28/23 07:58 Dose: 50 unit Documented By: AISHWARYA Enoxaparin Sodium (Enoxaparin Sodium 40 Mg/0.4 Ml Syringe) 40 mg SUBCUT Q24H [facility] Last Admin: 12/27/23 12:10 Dose: 40 mg Documented By: MARYBETH Glucose (Glucose Gel 15 Gm Gel..Gram.) 15 gm PO Q15M PRN; Protocol PRN Reason: per Hypoglycemia Standing Ord. Guaifenesin (Guaifenesin 200 Mg/10 Ml 10 Ml Liquid) 10 ml PO Q4H PRN PRN Reason: Cough Hydrocortisone (Hydrocortisone 2.5 % Rectal Cr 30 Gm Tube) 1 appl NC DAILY [facility] Last Admin: 12/28/23 08:14 Dose: 1 appl Documented By: AISHWARYA Dextrose (D10) 250 mls @ 750 mls/hr IV Q15M PRN; Protocol PRN Reason: per Hypoglycemia Standing Ord. Cefepime HCl 2 gm/ Sodium (Chloride) 50 mls @ 100 mls/hr IV Q8H [facility] Last Infusion: 12/28/23 04:43 Dose: Infused Documented By: MAYA Doxycycline Hyclate 100 mg/ (Sodium Chloride) 250 mls @ 166.67 mls/hr IV Q12H [facility] Insulin Human Lispro (Insulin Lispro 100 Unit/Ml 3 Ml Vial) 0 unit SUBCUT QIDACHS [facility]; Protocol Last Admin: 12/28/23 07:48 Dose: Not Given Documented By: AISHWARYA Non-Admin Reason: No Insulin Coverage Comments: POC 122 Labetalol HCl (Labetalol Hcl 100 Mg/20 Ml Vial) 10 mg IVPUSH Q6H PRN PRN Reason: SBP > 160 Last Admin: 12/27/23 00:22 Dose: 10 mg Documented By: MAYA Lorazepam (Lorazepam 2 Mg/Ml Vial) 1 mg IVPUSH Q4H PRN PRN Reason: Restlessness Last Admin: 12/28/23 07:59 Dose: 1 mg Documented By: AISHWARYA Lorazepam (Lorazepam 0.5 Mg Tablet) 0.5 mg PO Q8H PRN PRN Reason: anxiety/restlessness Last Admin: 12/27/23 23:46 Dose: 0.5 mg Documented By: MAYA Losartan Potassium (Losartan Potassium 50 Mg Tablet) 50 mg PO DAILY [facility]; Protocol Last Admin: 12/28/23 07:59 Dose: 50 mg Documented By: AISHWARYA Magnesium Hydroxide (Milk Of Magnesia 30 Ml Oral.Susp) 30 ml PO DAILY PRN PRN Reason: Constipation Melatonin (Melatonin 3 Mg Tablet) 6 mg PO BEDTIME PRN PRN Reason: Insomnia Last Admin: 12/27/23 20:13 Dose: 6 mg Documented By: MAYA Sodium Chloride (0.9 % Sodium Chloride Flush 3 Ml Syringe) 3 ml IVFLUSH QSHIFT [facility] Last Admin: 12/28/23 07:59 Dose: 3 ml Documented By: AISHWARYA Tamsulosin HCl (Tamsulosin Hcl 0.4 Mg Capsule) 0.4 mg PO BEDTIME [facility] Last Admin: 12/27/23 20:13 Dose: 0.4 mg Documented By: MAYA Topiramate (Topiramate 25 Mg Tablet) 50 mg PO BID [facility] Last Admin: 12/28/23 07:59 Dose: 50 mg Documented By: AISHWARYA Labs 12/27/23 06:17 12/28/23 05:26 Labs: Laboratory Results - last 24 hr 12/27/23 12/27/23 12/27/23 11:14 16:54 21:02 Estim Creat Clear Calc Estimated GFR POC Glucose 111 97 93 12/28/23 12/28/23 05:26 07:22 Estim Creat Clear Calc 76.2 Estimated GFR > 60 POC Glucose 122 H Assessment and Plan (1) Toxic metabolic encephalopathy: Status: Acute (2) Sepsis: Status: Acute (3) Paranoid ideation: Status: Acute (4) Cellulitis of left leg: Status: Acute (5) Delirium: Status: Acute Plan 63F PMH mood disorder, insulin-dependent diabetes mellitus, SHANNAN, COPD not on home oxygen, gastroesophageal reflux disease, tubular fracture of left lower extremity 11/09/2023 with [facility] at [facility] who presented to the emergency department from nursing facility for evaluation of altered mentation. Acute toxic metabolic encephalopathy 2/2 Sepsis due to LLE cellulitis and polypharmacy On Duloxetine, Trazodone, Bupropion now On Hold CSF analysis negative for infection, negative encephalitis panel Blood cultures negative continue cefepime and doxy, plan for 1-2 more days iv abx, if remains fever free will change to po Insulin-dependent diabetes mellitus with hyperglycemia Accu-Cheks with SSI COPD No exacerbation during admission. Continue home inhalers Gastroesophageal reflux disease On PPI Tibia/fibular fracture status post ORIF, pt recommnending str at discharge DVT prophylaxis: lovenox Full code reason for continued hospitalization: needs a couple more days iv abx for better bioavailability Quality Stroke Does the patient have a stroke diagnosis?: No VTE Prior VTE?: No VTE Risk Level:: Medical - moderate - high VTE Device Contraindication: Treatment Not Indicated VTE Drug Contraindication: N/A - Med Ordered
[2023-12-28] MEDS: Doxycycline Hyclate 100 MG in 0.9 % Sodium Chloride 250 ML 166.67 MG IV ×2 (11:08→22:55)
[2023-12-28] MEDS: Enoxaparin Sodium 40 MG/0.4 ML SYRINGE SUBCUT (11:13)
[2023-12-28 11:45] LABS: Glucose, Whole Blood 112 mg/dL (60-115)
[2023-12-28 16:16] LABS: Glucose, Whole Blood 156 mg/dL (60-115)
[2023-12-28] MEDS: Insulin Lispro 100 UNIT/ML 3 ML VIAL SUBCUT (16:39)
[2023-12-28] MEDS: LORazepam 0.5 MG TABLET PO (17:33)
[2023-12-28] MEDS: Melatonin 3 MG TABLET 6 MG PO (20:48)
[2023-12-28] MEDS: Acetaminophen 325 MG TABLET 975 MG PO (20:48)
[2023-12-28] MEDS: Tamsulosin HCL 0.4 MG CAPSULE PO (20:49)
[2023-12-28] MEDS: Atorvastatin Calcium 20 MG TABLET PO (20:49)
[2023-12-28 20:56] LABS: Glucose, Whole Blood 84 mg/dL (60-115)
[2023-12-29] VITALS (7 sets, daily range): BP systolic 140–178; BP diastolic 59–85; PULSE 72–86; RESP 16–20; TEMP 36.2–36.6; O2SAT 97–100
[2023-12-29] MEDS: LORazepam 0.5 MG TABLET PO ×3 (00:23→15:08)
[2023-12-29] MEDS: Heparin Sodium,Porcine Flush 50 UNITS, 0.9 % Sodium Chloride Flush 5 ML IVFLUSH ×4 (00:24→23:26)
[2023-12-29] MEDS: 0.9 % Sodium Chloride Flush 3 ML SYRINGE IVFLUSH ×3 (00:24→15:06)
[2023-12-29] MEDS: cefEPime HCl 2 GM in 0.9 % Sodium Chloride 50 ML IV ×3 (03:30→19:55)
[2023-12-29 07:26] LABS: Hemoglobin 9.1 g/dl (12.0-16.0); Mean Corpuscular HGB Conc 29.4 g/dl (31.0-35.0); Mean Corpuscular Hemoglobin 26.3 pg (27.0-33.0); Mean Corpuscular Volume 89.6 fL (80.0-98.0); Mean Platelet Volume 10.8 fL (9.4-12.3); Platelet Count 225 X10*3/uL (160-400); Red Blood Count 3.46 X10*6/uL (4.20-5.50); White Blood Count 6.9 X10*3/uL (4.8-10.8)
[2023-12-29 07:32] LABS: Anion Gap 17 (12-20); Blood Urea Nitrogen 12 mg/dL (9-16); Calcium 9.4 mg/dL (8.4-10.2); Carbon Dioxide 16 mmol/L (22-29); Chloride 112 mmol/L (96-108); Creatinine Clr Calc Pharmacy 75.3; Estimated Glomerular Filt Rate > 60; Glucose Fasting 149 mg/dL (60-99); Sodium 142 mmol/L (135-145)
--- NOTE | 2023-12-29 08:18 | HO.PM.IMPN ---
Subjective Subjective Date of Service: 12/29/23 Interval History: Pt seen and examined in her room with airline security representative services Appears more interactive but still confused. Pt thinks it is 2004 and she is here because of her fall at home which occured on 11/09/2023 LLE with improvement in swelling, pt still complaining of pain Routine labs today significant for potassium of 3.0 Review of Systems Left lower leg pain No fever, chills Denies chest pain/pressure Physical Exam Vital Signs: Vital Signs: Last Vital Signs Temp 97.8 F 12/29/23 07:59 Pulse 77 12/29/23 07:59 Resp 18 12/29/23 07:59 BP 158/70 H 12/29/23 07:59 Pulse Ox 99 12/29/23 07:59 O2 Del Method Room Air 12/29/23 07:59 BMI result Body Mass Index 34.1 General: Alert and oriented to person and place, not to time situation. In no acute distress Resp: CTA bilaterally CVS: S1, S2, RRR GI: +BS, NT, no distention Skin: Warm, dry Neuro: Cranial nerves II-XII grossly intact bilaterally. Motor grossly intact bilaterally Extremities: No edema. Mild tenderness to left lower extremity. Left lower extremity with mild erythema, so purulent discharge Objective Data Active Medications Acetaminophen (Acetaminophen 325 Mg Tablet) 975 mg PO Q6H PRN PRN Reason: Fever Last Admin: 12/28/23 20:48 Dose: 975 mg Documented By: MAYA Acetaminophen/Butalbital/Caffeine (Butalb/Acetamin/Caff 50/325/40 Tablet) 1 tab PO Q4H PRN PRN Reason: Headache Last Admin: 12/25/23 17:37 Dose: 1 tab Documented By: AISHWARYA Albuterol Sulfate (Albuterol Sulfate (0.083%) 2.5 Mg/3 Ml Vial.Neb) 2.5 mg INHALE Q4H PRN PRN Reason: Shortness of Breath/Wheezing Amlodipine Besylate (Amlodipine Besylate 5 Mg Tablet) 5 mg PO DAILY [facility]; Protocol Last Admin: 12/28/23 07:58 Dose: 5 mg Documented By: AISHWARYA Aspirin (Aspirin Enteric Coated 81 Mg Tablet.) 81 mg PO DAILY [facility] Last Admin: 12/28/23 07:58 Dose: 81 mg Documented By: AISHWARYA Atorvastatin Calcium (Atorvastatin Calcium 20 Mg Tablet) 20 mg PO BEDTIME [facility] Last Admin: 12/28/23 20:49 Dose: 20 mg Documented By: MAYA Calcium Carbonate (Calcium Carbonate 750 Mg Tab.Chew) 750 mg PO Q4H PRN PRN Reason: Heartburn Heparin Sodium (Porcine) 50 (units/ Sodium Chloride 5 ml) 0 units IVFLUSH QSHIFT [facility] Last Admin: 12/29/23 00:24 Dose: 50 unit Documented By: MAYA Enoxaparin Sodium (Enoxaparin Sodium 40 Mg/0.4 Ml Syringe) 40 mg SUBCUT Q24H [facility] Last Admin: 12/28/23 11:13 Dose: 40 mg Documented By: AISHWARYA Glucose (Glucose Gel 15 Gm Gel..Gram.) 15 gm PO Q15M PRN; Protocol PRN Reason: per Hypoglycemia Standing Ord. Guaifenesin (Guaifenesin 200 Mg/10 Ml 10 Ml Liquid) 10 ml PO Q4H PRN PRN Reason: Cough Hydrocortisone (Hydrocortisone 2.5 % Rectal Cr 30 Gm Tube) 1 appl [place] DAILY [facility] Last Admin: 12/28/23 08:14 Dose: 1 appl Documented By: AISHWARYA Dextrose (D10) 250 mls @ 750 mls/hr IV Q15M PRN; Protocol PRN Reason: per Hypoglycemia Standing Ord. Cefepime HCl 2 gm/ Sodium (Chloride) 50 mls @ 100 mls/hr IV Q8H [facility] Last Infusion: 12/29/23 04:00 Dose: Infused Documented By: MAYA Doxycycline Hyclate 100 mg/ (Sodium Chloride) 250 mls @ 166.67 mls/hr IV Q12H [facility] Last Infusion: 12/29/23 00:25 Dose: Infused Documented By: MAYA Insulin Human Lispro (Insulin Lispro 100 Unit/Ml 3 Ml Vial) 0 unit SUBCUT QIDACHS [facility]; Protocol Last Admin: 12/28/23 20:49 Dose: Not Given Documented By: MAYA Non-Admin Reason: No Insulin Coverage Labetalol HCl (Labetalol Hcl 100 Mg/20 Ml Vial) 10 mg IVPUSH Q6H PRN PRN Reason: SBP > 160 Last Admin: 12/27/23 00:22 Dose: 10 mg Documented By: MAYA Lorazepam (Lorazepam 0.5 Mg Tablet) 0.5 mg PO Q6H PRN PRN Reason: anxiety/restlessness Last Admin: 12/29/23 00:23 Dose: 0.5 mg Documented By: MAYA Losartan Potassium (Losartan Potassium 50 Mg Tablet) 50 mg PO DAILY [facility]; Protocol Last Admin: 12/28/23 07:59 Dose: 50 mg Documented By: AISHWARYA Magnesium Hydroxide (Milk Of Magnesia 30 Ml Oral.Susp) 30 ml PO DAILY PRN PRN Reason: Constipation Melatonin (Melatonin 3 Mg Tablet) 6 mg PO BEDTIME PRN PRN Reason: Insomnia Last Admin: 12/28/23 20:48 Dose: 6 mg Documented By: MAYA Sodium Chloride (0.9 % Sodium Chloride Flush 3 Ml Syringe) 3 ml IVFLUSH QSHIFT [facility] Last Admin: 12/29/23 00:24 Dose: 3 ml Documented By: MAYA Tamsulosin HCl (Tamsulosin Hcl 0.4 Mg Capsule) 0.4 mg PO BEDTIME [facility] Last Admin: 12/28/23 20:49 Dose: 0.4 mg Documented By: MAYA Topiramate (Topiramate 25 Mg Tablet) 50 mg PO BID [facility] Last Admin: 12/28/23 20:49 Dose: 50 mg Documented By: MAYA Labs 12/29/23 07:08 12/29/23 07:08 Labs: Laboratory Results - last 24 hr 12/28/23 12/28/23 12/28/23 11:32 16:05 20:46 MCV MCH MCHC RDW Plt Count MPV Absolute Nucleated RBC Nucleated RBC % (auto) Anion Gap Estim Creat Clear Calc Estimated GFR POC Glucose 112 156 H 84 Fasting Glucose Calcium 12/29/23 07:08 MCV 89.6 MCH 26.3 L MCHC 29.4 L RDW 14.0 Plt Count 225 MPV 10.8 Absolute Nucleated RBC 0.000 Nucleated RBC % (auto) 0.0 Anion Gap 17 Estim Creat Clear Calc 75.3 Estimated GFR > 60 POC Glucose Fasting Glucose 149 H Calcium 9.4 Assessment and Plan (1) Toxic metabolic encephalopathy: Status: Acute (2) Cellulitis of left leg: Status: Acute Plan 63F PMH mood disorder, insulin-dependent diabetes mellitus, SHANNAN, COPD not on home oxygen, gastroesophageal reflux disease, tubular fracture of left lower extremity 11/09/2023 with ORIF at [facility] who presented to the emergency department from nursing facility for evaluation of altered mentation. Acute toxic metabolic encephalopathy 2/2 Sepsis due to LLE cellulitis and polypharmacy On Duloxetine, Trazodone, Bupropion now on hold CSF analysis negative for infection, negative encephalitis panel Blood cultures negative Will continue cefepime and doxy IV for one more day, will change to p.o. abx if remains afebrile Hypokalemia Labs this show potassium of 3.0 Will give potassium 40 mEq p.o. Follow potassium Tibia/fibula fracture on 11/09/2023 S/P ORIF at [facility] Insulin-dependent type 2 diabetes SSI, diabetic diet COPD Not in acute exacerbation Continue home inhalers GERD Continue ppi Full Code Attending:?Dr. Pimentel DVT Prophylaxis: Lovenox Pt will require a hospitalization of at least two nights for treatment with IV abx. Pt is not yet back to baseline mentation. Quality Stroke Does the patient have a stroke diagnosis?: No VTE Prior VTE?: No VTE Risk Level:: Medical - moderate - high VTE Device Contraindication: Treatment Not Indicated VTE Drug Contraindication: N/A - Med Ordered
[2023-12-29 08:25] LABS: Glucose, Whole Blood 152 mg/dL (60-115)
[2023-12-29] MEDS: Potassium Chloride Packet 20 MEQ PACKET 40 MEQ PO (08:46)
[2023-12-29] MEDS: Aspirin Enteric Coated 81 MG TABLET.DR PO (08:46)
[2023-12-29] MEDS: amLODIPine Besylate 5 MG TABLET PO (08:46)
[2023-12-29] MEDS: Losartan Potassium 50 MG TABLET PO (08:46)
[2023-12-29] MEDS: Topiramate 25 MG TABLET 50 MG PO ×2 (08:47→22:38)
[2023-12-29] MEDS: Hydrocortisone 2.5 % Rectal Cr 30 GM TUBE 1 APPL PR (08:50)
[2023-12-29] MEDS: Doxycycline Hyclate 100 MG in 0.9 % Sodium Chloride 250 ML 166.67 MG IV ×2 (10:08→22:36)
[2023-12-29 11:37] LABS: Glucose, Whole Blood 127 mg/dL (60-115)
[2023-12-29] MEDS: Enoxaparin Sodium 40 MG/0.4 ML SYRINGE SUBCUT (11:39)
[2023-12-29 16:10] LABS: Glucose, Whole Blood 122 mg/dL (60-115)
[2023-12-29 20:26] LABS: Glucose, Whole Blood 107 mg/dL (60-115)
[2023-12-29] MEDS: Atorvastatin Calcium 20 MG TABLET PO (22:38)
[2023-12-29] MEDS: Tamsulosin HCL 0.4 MG CAPSULE PO (22:38)
[2023-12-30 02:56] VITALS: BP 148/67; PULSE 97; RESP 16; TEMP 36.5; O2SAT 100
[2023-12-30] MEDS: cefEPime HCl 2 GM in 0.9 % Sodium Chloride 50 ML IV (03:03)
[2023-12-30] MEDS: LORazepam 0.5 MG TABLET PO ×2 (03:37→15:14)
[2023-12-30 07:08] LABS: Anion Gap 17 (12-20); Blood Urea Nitrogen 12 mg/dL (9-16); Calcium 9.4 mg/dL (8.4-10.2); Carbon Dioxide 16 mmol/L (22-29); Chloride 113 mmol/L (96-108); Creatinine Clr Calc Pharmacy 74.4; Estimated Glomerular Filt Rate > 60; Glucose Random 132 mg/dL (60-115); Potassium 3.9 mmol/L (3.3-5.1); Sodium 142 mmol/L (135-145)
[2023-12-30 07:31] VITALS: BP 152/72; PULSE 94; RESP 16; TEMP 36.2; O2SAT 100
--- NOTE | 2023-12-30 07:39 | P.PNIM_ITS ---
Subjective Subjective Date of Service: 12/30/23 Interval History: Patient is Fijian-speaking only, seen with practice clinician services Patient overall says she is ?feeling great? However continues to complain of lower leg pain, especially in right leg No significant swelling or erythema Patient continues to be confused, oriented to self only. Patient reports believing that she is at [facility] but states she does not know what kind of facility that his. Also unable to state date. However, when asked to later where she came from patient states she was previously at rehab Potassium improved, 3.0 -> 3.9 No other significant electrolyte abnormalities Physical Exam 2 Vital Signs: Vital Signs: Last Vital Signs Temp 97.2 F 12/30/23 07:31 Pulse 94 12/30/23 07:31 Resp 16 12/30/23 07:31 BP 152/72 H 12/30/23 07:31 Pulse Ox 100 12/30/23 07:31 O2 Del Method Room Air 12/30/23 07:31 BMI result Body Mass Index 34.1 General: AOx1, not to place, time, or situation. In no acute distress Resp: CTA bilaterally CVS: S1, S2, RRR, murmur GI: +BS, NT, no distention Skin: Warm, dry Neuro: Cranial nerves II-XII grossly intact bilaterally. Motor grossly intact bilaterally Extremities: No edema. No significant erythema or warmth. As pictured below Psych: Pleasantly confused Objective Data Active Medications Acetaminophen (Acetaminophen 325 Mg Tablet) 975 mg PO Q6H PRN PRN Reason: Fever Last Admin: 12/28/23 20:48 Dose: 975 mg Documented By: MAYA Acetaminophen/Butalbital/Caffeine (Butalb/Acetamin/Caff 50/325/40 Tablet) 1 tab PO Q4H PRN PRN Reason: Headache Last Admin: 12/25/23 17:37 Dose: 1 tab Documented By: AISHWARYA Amlodipine Besylate (Amlodipine Besylate 5 Mg Tablet) 5 mg PO DAILY [facility]; Protocol Last Admin: 12/29/23 08:46 Dose: 5 mg Documented By: ELROY Aspirin (Aspirin Enteric Coated 81 Mg Tablet.) 81 mg PO DAILY [facility] Last Admin: 12/29/23 08:46 Dose: 81 mg Documented By: ELROY Atorvastatin Calcium (Atorvastatin Calcium 20 Mg Tablet) 20 mg PO BEDTIME [facility] Last Admin: 12/29/23 22:38 Dose: 20 mg Documented By: FITO Calcium Carbonate (Calcium Carbonate 750 Mg Tab.Chew) 750 mg PO Q4H PRN PRN Reason: Heartburn Heparin Sodium (Porcine) 50 (units/ Sodium Chloride 5 ml) 0 units IVFLUSH QSHIFT [facility] Last Admin: 12/29/23 23:26 Dose: 50 unit Documented By: FITO Enoxaparin Sodium (Enoxaparin Sodium 40 Mg/0.4 Ml Syringe) 40 mg SUBCUT Q24H [facility] Last Admin: 12/29/23 11:39 Dose: 40 mg Documented By: ELROY Glucose (Glucose Gel 15 Gm Gel..Gram.) 15 gm PO Q15M PRN; Protocol PRN Reason: per Hypoglycemia Standing Ord. Guaifenesin (Guaifenesin 200 Mg/10 Ml 10 Ml Liquid) 10 ml PO Q4H PRN PRN Reason: Cough Hydrocortisone (Hydrocortisone 2.5 % Rectal Cr 30 Gm Tube) 1 appl [place] DAILY [facility] Last Admin: 12/29/23 08:50 Dose: 1 appl Documented By: ELROY Dextrose (D10) 250 mls @ 750 mls/hr IV Q15M PRN; Protocol PRN Reason: per Hypoglycemia Standing Ord. Cefepime HCl 2 gm/ Sodium (Chloride) 50 mls @ 100 mls/hr IV Q8H [facility] Last Infusion: 12/30/23 03:54 Dose: Infused Documented By: FITO Doxycycline Hyclate 100 mg/ (Sodium Chloride) 250 mls @ 166.67 mls/hr IV Q12H [facility] Last Infusion: 12/30/23 01:05 Dose: Infused Documented By: FITO Insulin Human Lispro (Insulin Lispro 100 Unit/Ml 3 Ml Vial) 0 unit SUBCUT QIDACHS [facility]; Protocol Last Admin: 12/29/23 22:39 Dose: Not Given Documented By: FITO Non-Admin Reason: No Insulin Coverage Labetalol HCl (Labetalol Hcl 100 Mg/20 Ml Vial) 10 mg IVPUSH Q6H PRN PRN Reason: SBP > 160 Last Admin: 12/27/23 00:22 Dose: 10 mg Documented By: MAYA Lorazepam (Lorazepam 0.5 Mg Tablet) 0.5 mg PO Q6H PRN PRN Reason: anxiety/restlessness Last Admin: 12/30/23 03:37 Dose: 0.5 mg Documented By: FITO Losartan Potassium (Losartan Potassium 50 Mg Tablet) 50 mg PO DAILY [facility]; Protocol Last Admin: 12/29/23 08:46 Dose: 50 mg Documented By: ELROY Magnesium Hydroxide (Milk Of Magnesia 30 Ml Oral.Susp) 30 ml PO DAILY PRN PRN Reason: Constipation Melatonin (Melatonin 3 Mg Tablet) 6 mg PO BEDTIME PRN PRN Reason: Insomnia Last Admin: 12/28/23 20:48 Dose: 6 mg Documented By: MAYA Sodium Chloride (0.9 % Sodium Chloride Flush 3 Ml Syringe) 3 ml IVFLUSH QSHIFT [facility] Last Admin: 12/29/23 23:51 Dose: Not Given Documented By: FITO Non-Admin Reason: pt has midline Tamsulosin HCl (Tamsulosin Hcl 0.4 Mg Capsule) 0.4 mg PO BEDTIME [facility] Last Admin: 12/29/23 22:38 Dose: 0.4 mg Documented By: FITO Topiramate (Topiramate 25 Mg Tablet) 50 mg PO BID [facility] Last Admin: 12/29/23 22:38 Dose: 50 mg Documented By: FITO Labs 12/29/23 07:08 12/30/23 05:02 Labs: Laboratory Results - last 24 hr 12/29/23 12/29/23 12/29/23 08:22 11:24 16:00 Anion Gap Estim Creat Clear Calc Estimated GFR POC Glucose 152 H 127 H 122 H Random Glucose Calcium 12/29/23 12/30/23 19:39 05:02 Anion Gap 17 Estim Creat Clear Calc 74.4 Estimated GFR > 60 POC Glucose 107 Random Glucose 132 H Calcium 9.4 Assessment and Plan (1) Toxic metabolic encephalopathy: Status: Acute (2) Cellulitis of left leg: Status: Acute Plan 63F PMH mood disorder, insulin-dependent diabetes mellitus, SHANNAN, COPD not on home oxygen, gastroesophageal reflux disease, tubular fracture of left lower extremity 11/09/2023 with ORIF at who presented to the emergency department from nursing facility for evaluation of altered mentation. Acute toxic metabolic encephalopathy 2/2 Sepsis due to LLE cellulitis and polypharmacy On Duloxetine, Trazodone, Bupropion, and pregabalin, all now on hold CSF analysis negative for infection, negative encephalitis panel Blood cultures negative UA negative Pt received 10 days of IV abx, last on cefepime and doxy, stopped 12/30/2023 Midline can be removed Pt still pleasantly confused, unclear if this is new baseline Psychiatry consult for medication management, including Cymbalta titration Hypokalemia, resolved Potassium improved to 3.9 Tibia/fibula fracture on 11/09/2023 S/P ORIF at [facility] for rehab Insulin-dependent type 2 diabetes SSI, diabetic diet COPD Not in acute exacerbation Continue home inhalers GERD Continue ppi Full Code Attending:?Dr. Pimentel DVT Prophylaxis: Lovenox Pt will require continued hospitalization while awaiting psychiatric medication reconciliation and titration. Pt will likely be able to be discharged back to rehab tomorrow. Quality Stroke Does the patient have a stroke diagnosis?: No VTE Prior VTE?: No VTE Risk Level:: Medical - moderate - high VTE Device Contraindication: Treatment Not Indicated VTE Drug Contraindication: N/A - Med Ordered
[2023-12-30 07:41] LABS: Glucose, Whole Blood 125 mg/dL (60-115)
[2023-12-30] MEDS: Aspirin Enteric Coated 81 MG TABLET.DR PO (08:21)
[2023-12-30] MEDS: Losartan Potassium 50 MG TABLET PO (08:21)
[2023-12-30] MEDS: amLODIPine Besylate 5 MG TABLET PO (08:21)
[2023-12-30] MEDS: 0.9 % Sodium Chloride Flush 3 ML SYRINGE IVFLUSH (08:22)
[2023-12-30] MEDS: Topiramate 25 MG TABLET 50 MG PO (08:22)
[2023-12-30] MEDS: Heparin Sodium,Porcine Flush 50 UNITS, 0.9 % Sodium Chloride Flush 5 ML IVFLUSH ×2 (08:34→15:24)
[2023-12-30] MEDS: Doxycycline Hyclate 100 MG in 0.9 % Sodium Chloride 250 ML 166.67 MG IV (11:05)
--- NOTE | 2023-12-30 11:17 | PC.NURSE ---
Patient refused sequentials,risks explained,encouraged activity
[2023-12-30 11:21] LABS: Glucose, Whole Blood 128 mg/dL (60-115)
[2023-12-30 12:00] VITALS: BP 126/79; PULSE 88; RESP 14; TEMP 36.2; O2SAT 96
[2023-12-30] MEDS: Enoxaparin Sodium 40 MG/0.4 ML SYRINGE SUBCUT (12:48)
--- NOTE | 2023-12-30 13:32 | MHC.CM.PN ---
Addendum entered by Oralia Thompson 12/30/23 15:48: PT WAS SEEN BY PSYCH, PER PROVIDER, PT CAN DC BACK TO [facility] TODAY. BLS TRANSPORT IS BOOKED FOR 6:30 P.M. VIA [facility]. PROVIDER WILL NOTIFY DAUGHTER WHEN SPEAKS WITH HER REGARDING PSYCH CONSULT. CENTER UPDATED ON RETURN VIA [facility] Original Note: EMR REVIEWED AND PER MD ROUNDS, PT MAY BE READY TO DC TODAY HOWEVER WILL NEED TO BE SEEN BY PSYCH BEFORE DC REGARDING HOME MED REGIME. CM WILL CONTINUE TO FOLLOW FOR PLAN.
[2023-12-30] MEDS: Acetaminophen 325 MG TABLET 975 MG PO (15:03)
--- NOTE | 2023-12-30 15:15 | PM.PSYCN ---
History of Present Illness Date of Service: 12/30/2023 Chief Complaint: AMS Reason for Consult: med management for discharge; psych meds currently on hold Requesting physician: Herlinda Garvin Discussed with referring provider: Yes Sources of Information: patient interviewed and chart reviewed HPI Narrative: Per previous psychiatric consult on 12/25/23: The patient is a 63-year-old female, only Wallisian-speaking, , with a past history of a fracture that was transferred from the subacute rehab to the emergency room due to fever and altered mental status. It was clear that the patient had cellulitis and she needed IV antibiotics and inpatient level of care for her sepsis. The patient has several medical comorbidities such as obesity, SHANNAN, diabetes and high blood pressure. The patient has history of mood disorders, she had been treated as an outpatient several times and she has tried psychiatric medications in the past. On admission she was initially on Cymbalta and Topamax but it Cymbalta was discontinued due to the possibility of serotonergic syndrome. The assessment focused stain showed that the patient was on delirium, encephalopathy due to sepsis. During psychiatric assessment today, pt presents alert, oriented to person and certain aspects of situation; not oriented to time. Calm, cooperative, pleasant. She reports feeling confused but feeling okay ; denies depressive symptoms. Pt requesting to be discharged home. Past Psychiatric History: hx mood disorder Medical Evaluation Reviewed: Yes [facility] Medical History Diabetes Hepatitis GERD (gastroesophageal reflux disease) Neuropathy Fibromyalgia Depression Sleep apnea Asthma Elevated cholesterol HTN (hypertension) Surgical History History of esophagogastroduodenoscopy (EGD) H/O colonoscopy S/P insertion of spinal cord stimulator Hx of excision of mass Hx of hernia repair Family History: Denies Social History: with good social support Diagnostics Vital Signs (24Hr): Vital Signs - 24 hr 12/29/23 19:34 12/29/23 23:03 12/30/23 02:56 Temperature 97.8 F 97.2 F 97.7 F Pulse Rate 85 86 97 Respiratory Rate 16 16 16 Blood Pressure 163/85 H 168/70 H 148/67 H Pulse Oximetry 97 100 100 Oxygen Delivery Method Room Air Room Air 12/30/23 07:31 12/30/23 12:00 Temperature 97.2 F 97.1 F Pulse Rate 94 88 Respiratory Rate 16 14 Blood Pressure 152/72 H 126/79 Pulse Oximetry 100 96 Oxygen Delivery Method Room Air Room Air BMI result Body Mass Index 34.1 Labs 12/29/23 07:08 12/30/23 05:02 Labs: Laboratory Results - last 48 hr 12/28/23 12/28/23 12/29/23 16:05 20:46 07:08 WBC 6.9 RBC 3.46 L Hgb 9.1 L Hct 31.0 L MCV 89.6 MCH 26.3 L MCHC 29.4 L RDW 14.0 Plt Count 225 MPV 10.8 Absolute Nucleated RBC 0.000 Nucleated RBC % (auto) 0.0 Sodium 142 Potassium 3.0 L Chloride 112 H Carbon Dioxide 16 L Anion Gap 17 BUN 12 Creatinine 0.85 Estim Creat Clear Calc 75.3 Estimated GFR > 60 POC Glucose 156 H 84 Random Glucose Fasting Glucose 149 H Calcium 9.4 12/29/23 12/29/23 12/29/23 08:22 11:24 16:00 WBC RBC Hgb Hct MCV MCH MCHC RDW Plt Count MPV Absolute Nucleated RBC Nucleated RBC % (auto) Sodium Potassium Chloride Carbon Dioxide Anion Gap BUN Creatinine Estim Creat Clear Calc Estimated GFR POC Glucose 152 H 127 H 122 H Random Glucose Fasting Glucose Calcium 12/29/23 12/30/23 12/30/23 19:39 05:02 07:35 WBC RBC Hgb Hct MCV MCH MCHC RDW Plt Count MPV Absolute Nucleated RBC Nucleated RBC % (auto) Sodium 142 Potassium 3.9 D Chloride 113 H Carbon Dioxide 16 L Anion Gap 17 BUN 12 Creatinine 0.86 Estim Creat Clear Calc 74.4 Estimated GFR > 60 POC Glucose 107 125 H Random Glucose 132 H Fasting Glucose Calcium 9.4 12/30/23 11:17 WBC RBC Hgb Hct MCV MCH MCHC RDW Plt Count MPV Absolute Nucleated RBC Nucleated RBC % (auto) Sodium Potassium Chloride Carbon Dioxide Anion Gap BUN Creatinine Estim Creat Clear Calc Estimated GFR POC Glucose 128 H Random Glucose Fasting Glucose Calcium Imaging Radiology Impressions: ITS Impressions Tibia/Fibula X-Ray 12/21/23 21:17 IMPRESSION: * No periosteal reaction, cortical erosion, focal osteopenia to suggest osteomyelitis. * Proximal fibular and distal fibular fractures. * Tibial ORIF without evidence of hardware complication. * Posterior soft tissue swelling. Head CT 12/21/23 21:27 IMPRESSION: No acute intracranial pathology. Chest X-Ray 12/21/23 22:20 IMPRESSION: No acute cardiopulmonary disease. Lumbar Spine X-Ray 12/22/23 17:57 IMPRESSION: * Spinal stimulator leads are seen extending superiorly beyond the superior endplate of T10 vertebral body and out of field of view. * Mild spondylosis of the lumbar spine. Lumbar Puncture Fluoroscopy 12/23/23 11:50 IMPRESSION: Successful fluoroscopic guided lumbar puncture This procedure was performed by Frederick Padilla PA-C and supervised by Dr. Pike. Chest X-Ray 12/24/23 11:50 IMPRESSION: Hypoinflation of the lungs without airspace consolidation. Lower Extremity CT 12/24/23 18:56 IMPRESSION: 1. Diffuse soft tissue swelling and subcutaneous edema in the left lower leg. No discrete fluid collections are identified. Specifically, no appreciable abscess. 2. Healing fractures of the proximal and distal fibular diaphyses as well as the tibial shaft and tibial plafond status post ORIF. Mental Status Exam Mental Status Exam Patient Appearance: Appropriate Patient Orientation: Person and Situation Level of Consciousness: Awake Patient Behavior: Appropriate and Good Eye Contact Mood Description: Calm and Withdrawn Affect Description: Calm Ability to Follow Directions: Good Speech Pattern: Clear and Difficulty Finding Words Hallucinations: None Delusions: Not Present Thought Process: Confusion Thought Content: positive for Linear Judgement: Fair Medications Medications Current Medications Acetaminophen (Acetaminophen 325 Mg Tablet) 975 mg PO Q6H PRN PRN Reason: Fever or mild pain Last Admin: 12/30/23 15:03 Dose: 975 mg Acetaminophen/Butalbital/Caffeine (Butalb/Acetamin/Caff 50/325/40 Tablet) 1 tab PO Q4H PRN PRN Reason: Headache Last Admin: 12/25/23 17:37 Dose: 1 tab Amlodipine Besylate (Amlodipine Besylate 5 Mg Tablet) 5 mg PO DAILY [facility]; Protocol Last Admin: 12/30/23 08:21 Dose: 5 mg Aspirin (Aspirin Enteric Coated 81 Mg Tablet.) 81 mg PO DAILY [facility] Last Admin: 12/30/23 08:21 Dose: 81 mg Atorvastatin Calcium (Atorvastatin Calcium 20 Mg Tablet) 20 mg PO BEDTIME [facility] Last Admin: 08/18/24 22:38 Dose: 20 mg Calcium Carbonate (Calcium Carbonate 750 Mg Tab.Chew) 750 mg PO Q4H PRN PRN Reason: Heartburn Heparin Sodium (Porcine) 50 (units/ Sodium Chloride 5 ml) [facility] Last Admin: 12/30/23 08:34 Dose: 50 unit Enoxaparin Sodium (Enoxaparin Sodium 40 Mg/0.4 Ml Syringe) 40 mg SUBCUT Q24H [facility] Last Admin: 12/30/23 12:48 Dose: 40 mg Glucose (Glucose Gel 15 Gm Gel..Gram.) 15 gm PO Q15M PRN; Protocol PRN Reason: per Hypoglycemia Standing Ord. Guaifenesin (Guaifenesin 200 Mg/10 Ml 10 Ml Liquid) 10 ml PO Q4H PRN PRN Reason: Cough Hydrocortisone (Hydrocortisone 2.5 % Rectal Cr 30 Gm Tube) 1 appl [place] DAILY [facility] Last Admin: 12/30/23 08:31 Dose: Not Given Dextrose (D10) 250 mls @ 750 mls/hr IV Q15M PRN; Protocol PRN Reason: per Hypoglycemia Standing Ord. Insulin Human Lispro (Insulin Lispro 100 Unit/Ml 3 Ml Vial) 0 unit SUBCUT QIDACHS [facility]; Protocol Last Admin: 12/30/23 12:44 Dose: Not Given Labetalol HCl (Labetalol Hcl 100 Mg/20 Ml Vial) 10 mg IVPUSH Q6H PRN PRN Reason: SBP > 160 Last Admin: 12/27/23 00:22 Dose: 10 mg Lorazepam (Lorazepam 0.5 Mg Tablet) 0.5 mg PO Q6H PRN PRN Reason: anxiety/restlessness Last Admin: 12/30/23 15:14 Dose: 0.5 mg Losartan Potassium (Losartan Potassium 50 Mg Tablet) 50 mg PO DAILY [facility]; Protocol Last Admin: 12/30/23 08:21 Dose: 50 mg Magnesium Hydroxide (Milk Of Magnesia 30 Ml Oral.Susp) 30 ml PO DAILY PRN PRN Reason: Constipation Melatonin (Melatonin 3 Mg Tablet) 6 mg PO BEDTIME PRN PRN Reason: Insomnia Last Admin: 12/28/23 20:48 Dose: 6 mg Sodium Chloride (0.9 % Sodium Chloride Flush 3 Ml Syringe) 3 ml IVFLUSH [facility] Last Admin: 12/30/23 08:22 Dose: 3 ml Tamsulosin HCl (Tamsulosin Hcl 0.4 Mg Capsule) 0.4 mg PO BEDTIME [facility] Last Admin: 12/29/23 22:38 Dose: 0.4 mg Topiramate (Topiramate 25 Mg Tablet) 50 mg PO BID [facility] Last Admin: 12/30/23 08:22 Dose: 50 mg Allergies Allergies Allergy/AdvReac Type Severity Reaction Status Date / Time iodine Allergy Severe THROAT Verified 12/21/23 19:08 CLOSES ibuprofen AdvReac Intermediate UPSET Verified 12/21/23 19:08 STOMACH Assessment & Plan Assessment & Plan (1) Toxic metabolic encephalopathy: Status: Acute Code(s): G92.8 - Other toxic encephalopathy (2) Sepsis: Status: Acute Code(s): A41.9 - Sepsis, unspecified organism (3) Delirium: Status: Acute Code(s): R41.0 - Disorientation, unspecified (4) Paranoid ideation: Status: Acute Code(s): F22 - Delusional disorders (5) Hallucinations, visual: Status: Acute Code(s): R44.1 - Visual hallucinations Plan During psychiatric assessment today, pt presents alert, oriented to person, place (unable to name hospital but knew she was in the hospital) and certain aspects of situation; not oriented to time. Calm, cooperative, pleasant. She reports feeling confused but feeling okay ; denies depressive symptoms. No delusions present at this time. denies SI/HI/VH/AH. Pt requesting to be discharged home. Recommendations: Continue Topamax. DC Trazodone. Hold Cymbalta and Wellbutrin until pt follows up with her outpatient providers. Can slowly restart after pt's confusion has improved. Total time managing care of this patient today _30___ minutes. Patient educated on: medication risk/benefits
[2023-12-30 15:49] VITALS: BP 177/76; PULSE 79; RESP 20; TEMP 36.4; O2SAT 100
--- NOTE | 2023-12-30 16:26 | PM.DS ---
DS: Providers Provider Date of Service: 12/30/23 Date of admission: 12/21/23 22:14 Date of discharge: 12/30/23 Primary care physician: Ethan Lepe MD Consults: 12/22/23 11:41 Consult to Infectious Diseases Routine Consulting Provider: [facility] Reason for consultation: Fever, AMS, concerns of Meningitis vs cellulitis 12/23/23 03:26 Consult to Wound Care Routine Reason for consultation: redness and warmth to LLE Has provider been notified: No 12/23/23 14:17 Consult to Neurology Routine Consulting Provider: [facility] Reason for consultation: AMS, Fever, Serotonin syndrome ? 12/23/23 14:20 Consult to Psychiatry Routine Consulting Provider: Psych Cover[facility] Reason for consultation: AMS, Serotonins syndrome ? 12/25/23 07:23 Consult to Orthopedics Routine Consulting Provider: [facility] Reason for consultation: LLE swelling and erythema at site of recent ORIF. 12/25/23 09:32 Consult to Psychiatry Routine Consulting Provider: Psych Covering Reason for consultation: Home medicaiton evaluation. concern over Serotonin syndrome. 12/30/23 10:59 Consult to Psychiatry Routine Consulting Provider: Psych Covering Reason for consultation: Med management for discharge today; psych meds currently on hold DS: Diagnosis Discharge Diagnosis (1) Toxic metabolic encephalopathy: Status: Acute (2) Sepsis: Status: Acute (3) Delirium: Status: Acute (4) Paranoid ideation: Status: Acute (5) Hallucinations, visual: Status: Acute DS: Summary Hospital Course Hospital Course: From admission H&P: Chief Complaint: AMS This is a 63-year-old female with pertinent history of mood disorder, insulin-dependent diabetes mellitus, SHANNAN, COPD not on home oxygen, gastroesophageal reflux disease, tibia/fibula fracture of left lower extremity 11/09/2023 with ORIF at [facility] who presents to the emergency department from nursing facility for evaluation of altered mentation. Unable to obtain history from the patient. History was obtained from ER provider and chart review. As per the daughter who was present earlier prior to my evaluation patient has had many episodes of paranoia since being discharged from [facility]. Patient was confused on the day of presentation. Also had episodes of paranoia and delusion. Apparently, patient was holding a blanket and saying that it was a baby. She was also screaming about a date baby while sitting in chair. No history of psychiatric illness. In the emergency department, patient was found to be febrile, tachypneic and tachycardic. Also found to have left lower extremity cellulitis and initiated on empiric IV antibiotics. Unable to obtain review of systems. Hospital course: Patient was admitted to the hospital for acute metabolic encephalopathy in the setting of lower left extremity cellulitis with sepsis and polypharmacy. Patient's temperature was noted be as high as 104.0. For cellulitis with sepsis patient was initially treated with empiric vancomycin IV, and then ceftriaxone and ampicillin were added. Patient was evaluated by critical Care who felt she did not meet ICU criteria. Patient was also evaluated for tick-borne diseases, West Nile virus, hep C, and HIV. Lumbar puncture was performed and CSF analysis was negative for infection, and negative for encephalitis panel. Blood cultures were negative. UA negative. CT of head negative. CXR negative. ID was consulted and patient's IV antibiotics were switched to cefepime and doxycycline. Patient had midline placed and received a total of 10 days IV antibiotics. For polypharmacy, patient was seen by Psychiatry 3 times and initial concern was for serotonergic syndrome. Patient's bupropion, duloxetine, trazodone, and pregabalin were held, with only pregabalin being resumed upon discharge. Psychiatry recommended continuing Topamax, discontinuing trazodone, and holding Cymbalta and Wellbutrin until patient follows up with outpatient psychiatry. Daughter was contacted and patient already has established outpatient care with psychiatry. Patient continues to be encephalopathic and not fully oriented to time, place, or situation. Patient should follow-up with Psychiatry outpatient for full resolution of encephalopathy and possible resumption of anti psychiatric medications. Patient's long-acting insulin Levemir 34 units bedtime was also held during admission. Patient was placed on a sliding scale insulin, but was mostly euglycemic during admission and not requiring additional insulin. Will resume metformin and sliding scale insulin upon discharge. For COPD will resume home inhalers. For CAD will resume statin and aspirin. For GERD continue PPI. For hypertension continue home meds. For migraines continue sumatriptan. Time Attestation Discharge Coordination Time (in mins): 40 Quality: Safe Use of Opioids Does Pt have an Active Cancer Diagnosis on the Problem List?: No Quality: Stroke Does the patient have a stroke diagnosis?: No Physical Exam Vital Signs: Vital Signs: Last Vital Signs Temp 97.5 F 12/30/23 15:49 Pulse 79 12/30/23 15:49 Resp 20 12/30/23 15:49 BP 177/76 H 12/30/23 15:49 Pulse Ox 100 12/30/23 15:49 O2 Del Method Room Air 12/30/23 15:49 BMI result Body Mass Index 34.1 General: AOx1, not to place, time, or situation. In no acute distress Resp: CTA bilaterally CVS: S1, S2, RRR, murmur GI: +BS, NT, no distention Skin: Warm, dry Neuro: Cranial nerves II-XII grossly intact bilaterally. Motor grossly intact bilaterally Extremities: No edema. No significant erythema or warmth. As pictured below Psych: Pleasantly confused DS: Data Data Completed and Pending Labs on day of discharge: Laboratory Results - last 24 hr 12/29/23 12/30/23 12/30/23 19:39 05:02 07:35 Sodium 142 Potassium 3.9 D Chloride 113 H Carbon Dioxide 16 L Anion Gap 17 BUN 12 Creatinine 0.86 Estim Creat Clear Calc 74.4 Estimated GFR > 60 POC Glucose 107 125 H Random Glucose 132 H Calcium 9.4 12/30/23 11:17 Sodium Potassium Chloride Carbon Dioxide Anion Gap BUN Creatinine Estim Creat Clear Calc Estimated GFR POC Glucose 128 H Random Glucose Calcium Discharge Plan Discharge Anticipated Discharge Date/Time: 12/30/23 16:30 Patient Disposition: Xfer SNF Discharge Diagnosis: Acute toxic metabolic encephalopathy due to LLE cellulitis with sepsis and polypharmacy Referrals: [facility] [Outside] - 1 Week (TRANSFER FOR SHORT TERM REHAB) Ethan Lepe MD [Primary Care Provider] - 1 Week Discharge Medications: Continued Incruse Ellipta 62.5 mcg/actuation blister with device 1 inh inhalation DAILY Qty: 30 6RF Breo Ellipta 200-25 mcg/dose blister with device 1 ea inhalation DAILY Qty: 60 6RF pantoprazole 40 mg tablet,delayed release (DR/EC) 40 mg PO DAILY@0630 Qty: 30 6RF metformin 500 mg Tablet 500 mg PO DAILY atorvastatin 20 mg Tablet 20 mg PO BEDTIME losartan 50 mg Tablet 50 mg PO DAILY acetaminophen [Tylenol] 325 mg Tablet 650 mg PO Q4H PRN (Reason: Pain) cetirizine 10 mg Tablet 10 mg PO DAILY tizanidine 4 mg Tablet 4 mg PO Q8H PRN (Reason: Muscle Spasm) riboflavin (vitamin B2) 100 mg Tablet 100 mg PO DAILY sumatriptan succinate 100 mg Tablet 100 mg PO DAILY PRN (Reason: Migraine Headache) Rx Instructions: do not exceed 2 doses per 24 hrs sennosides-docusate sodium [Senna with Docusate Sodium] 8.6-50 mg Tablet 2 tab-cap PO BEDTIME aspirin 81 mg Tablet,Delayed Release (Dr/Ec) 81 mg PO DAILY famotidine 20 mg Tablet 20 mg PO BEDTIME magnesium hydroxide [Milk of Magnesia] 400 mg/5 mL Suspension 30 ml PO DAILY PRN (Reason: Constipation) tamsulosin 0.4 mg Capsule 0.4 mg PO BEDTIME bisacodyl 10 mg Suppository 10 mg UT DAILY PRN (Reason: Constipation) Fleet Enema 19-7 gram/118 mL Enema 118 ml UT DAILY PRN (Reason: Constipation) docusate sodium 100 mg Capsule 100 mg PO BID insulin lispro 100 unit/mL Solution 1 sliding scale dose SUBCUT TIDAC albuterol sulfate [Ventolin HFA] 90 mcg/actuation HFA aerosol inhaler 2 puff INHALATION Q6H PRN (Reason: wheezing) fluticasone propionate [Flonase Allergy Relief] 50 mcg/actuation Aulander,Suspension 2 spray INTRANASAL DAILY Rx Instructions: administer into each nostril oxycodone 5 mg Tablet 5 mg PO Q4H PRN (Reason: Moderate Pain (Scale Score 5-6)) topiramate 50 mg Tablet 50 mg PO BID pregabalin 100 mg Capsule 100 mg PO TID ferrous gluconate 324 mg (38 mg iron) Tablet 324 mg PO DAILY riboflavin (vitamin B2) 400 mg Tablet 400 mg PO DAILY Saccharomyces boulardii 10 billion cell Capsule 10,000 mmu cells PO BID naloxone [Narcan] 4 mg/actuation Aulander,Non-Aerosol 4 mg INTRANASAL Q3M PRN (Reason: Opioid Overdose) Rx Instructions: spray 1 dose into ONE nostril; alternate nostrils w each dose until help arrives Discontinued trazodone 100 mg Tablet 100 mg PO BEDTIME bupropion HCl [Wellbutrin XL] 150 mg Tablet Extended Release 24 Hr 150 mg PO DAILY Levemir U-100 Insulin 100 unit/mL Solution 34 unit SUBCUT BEDTIME oxycodone-acetaminophen [Percocet] 7.5-325 mg Tablet 1 tab PO DAILY Rx Instructions: May use PRN oxycodone 4 hrs after this dose. duloxetine 60 mg Capsule, Delayed Rel Sprinkle 60 mg PO BID Discharge Orders: Discharge Order (Routine); Ordered 12/30/23 Ordered By: Herlinda Garvin Diet: Advance to usual diet Activity on Discharge: As tolerated Stand Alone Forms: Patient Portal Discharge page Print Language: Turkish Care Plan Goals: Resolution of mentation back to baseline Resolution of lower left leg cellulitis Health Concerns: Monitor for fever, lethargy, agitation, increasing confusion Monitor for increased lower left leg swelling, redness, pain Plan of Treatment: Pt's psychiatric medications -- bupropion 150 mg daily, duloxetine 60 mg b.i.d., and trazodone 100 mg bedtime -- are being held due to possible serotonin syndrome Patient should follow up outpatient with Psychiatry in 1-2 weeks for evaluation of of continued encephalopathy and possible resumption of psychiatric medications Long acting insulin Levemir 34 units at bedtime also being held due to patient being mostly you glycemic during hospital stay and not requiring insulin dosing with sliding scale insulin; resume as indicated Follow-up outpatient for tibia/fibula ORIF with [facility] Assessment: See discharge summary
[2023-12-30 16:29] LABS: Glucose, Whole Blood 118 mg/dL (60-115)
[2023-12-30 17:25] LABS: West Nile Virus IgM Antibody <0.90 index (<0.90); West Nile Virus, IgG 3.15 index (<1.30)
--- NOTE | 2023-12-30 18:23 | PC.NURSE ---
Midline removed from Right upper arm by charge nurse Meeta
== END 2023-12-30 19:03 | disposition skilled nursing facility (03) | DRG 720 ==
LOC: HO.ED 22:42 → HO.EDOVER 22:47 → HO.IMC 12-22 16:28 → HO.S3 12-29 18:14
PROVIDERS: Emergency Medicine Emergency Medical Services; Internal Medicine; Student in an Organized Health Care Education/Training Program; Admitting Provider Student in an Organized Health Care Education/Training Program; Emergency Provider Emergency Medicine; PCP Family Medicine; Referring Provider Internal Medicine Geriatric Medicine; Visit Provider Student in an Organized Health Care Education/Training Program
DX: A41.9 Sepsis, unspecified organism (principal); G92.8 Other toxic encephalopathy; F22 Delusional disorders; E11.40 Type 2 diabetes mellitus with diabetic neuropathy, unspecified; L03.116 Cellulitis of left lower limb; D64.9 Anemia, unspecified; E11.65 Type 2 diabetes mellitus with hyperglycemia; F39 Unspecified mood [affective] disorder; G97.1 Other reaction to spinal and lumbar puncture; I25.10 Atherosclerotic heart disease of native coronary artery without angina pectoris; Y84.4 Aspiration of fluid as the cause of abnormal reaction of the patient, or of later complication, without mention of misadventure at the time of the procedure; T50.915A Adverse effect of multiple unspecified drugs, medicaments and biological substances, initial encounter; E87.6 Hypokalemia; G47.33 Obstructive sleep apnea (adult) (pediatric); K21.9 Gastro-esophageal reflux disease without esophagitis; J44.9 Chronic obstructive pulmonary disease, unspecified; M79.7 Fibromyalgia; Z79.4 Long term (current) use of insulin; Z79.51 Long term (current) use of inhaled steroids; Z79.82 Long term (current) use of aspirin; Z79.84 Long term (current) use of oral hypoglycemic drugs; Z96.82 Presence of neurostimulator; Z79.899 Other long term (current) drug therapy
CPT/HCPCS: 0241U; 36410; 36415; 62328; 70450; 71045; 72100; 73590; 73700; 80048; 80076; 80143; 80202; 80307; 81001; 82550; 82565; 82803; 82945; 82947; 83605; 83615; 84145; 84157; 85025; 85027; 85610; 85652; 85730; 86140; 86788; 86789; 87015; 87040; 87070; 87205; 87389; 87468; 87469; 87478; 87483; 87484; 87522; 87633; 87640; 87641; 87798; 89051; 93005; 97116; 97162; 99285; C1758; J0131; J0290; J0692; J0696; J0736; J1200; J1630; J1642; J1650; J1885; J1920; J2060; J2310; J2359; J2543; J3370; J3371; J7120

== ENCOUNTER → 2023-12-21 19:11 | Outpatient (BNV) | payer MEDICAID, SELFPAY | PROVIDERS: Admitting Provider Student in an Organized Health Care Education/Training Program; Emergency Provider Emergency Medicine Emergency Medical Services; PCP Family Medicine; Visit Provider Internal Medicine Cardiovascular Disease | DX: R00.0 Tachycardia, unspecified (principal) | CPT/HCPCS: 93010 ==

== ENCOUNTER 2023-12-21 22:14 | Outpatient (BNV) | payer MEDICAID, SELFPAY | END 2023-12-22 11:00 | PROVIDERS: Admitting Provider Student in an Organized Health Care Education/Training Program; Emergency Provider Emergency Medicine; PCP Family Medicine; Visit Provider Physician Assistant Surgical | DX: R41.0 Disorientation, unspecified (principal) | CPT/HCPCS: 62328 ==

== ENCOUNTER → 2023-12-21 22:14 | Outpatient (BNV) | payer MEDICAID, SELFPAY | PROVIDERS: Admitting Provider Student in an Organized Health Care Education/Training Program; Emergency Provider Emergency Medicine; PCP Family Medicine; Visit Provider Internal Medicine | DX: G92.8 Other toxic encephalopathy (principal); R50.9 Fever, unspecified; A41.9 Sepsis, unspecified organism | CPT/HCPCS: 99222 ==

== ENCOUNTER → 2023-12-21 22:14 | Outpatient (BNV) | payer MEDICAID, SELFPAY | PROVIDERS: Admitting Provider Student in an Organized Health Care Education/Training Program; Emergency Provider Emergency Medicine; PCP Family Medicine; Visit Provider Physician Assistant Medical | DX: A41.9 Sepsis, unspecified organism (principal); L03.116 Cellulitis of left lower limb; R41.0 Disorientation, unspecified | CPT/HCPCS: 99291 ==

== ENCOUNTER → 2023-12-21 22:14 | Outpatient (BNV) | payer OTHER, SELFPAY | PROVIDERS: Admitting Provider Student in an Organized Health Care Education/Training Program; Emergency Provider Emergency Medicine; PCP Family Medicine; Visit Provider Clinical Nurse Specialist Psychiatric/Mental Health | DX: F22 Delusional disorders (principal); G92.8 Other toxic encephalopathy; A41.9 Sepsis, unspecified organism; R41.0 Disorientation, unspecified; R44.1 Visual hallucinations | CPT/HCPCS: 99231; 99232 ==

== ENCOUNTER → 2023-12-21 22:14 | Outpatient (BNV) | payer MEDICAID, SELFPAY | PROVIDERS: Admitting Provider Student in an Organized Health Care Education/Training Program; Emergency Provider Emergency Medicine; PCP Family Medicine; Visit Provider Psychiatry & Neurology Neurology | DX: G92.8 Other toxic encephalopathy (principal); L03.116 Cellulitis of left lower limb | CPT/HCPCS: 99222 ==

== ENCOUNTER → 2023-12-21 22:14 | Outpatient (BNV) | payer MEDICAID, SELFPAY | PROVIDERS: Admitting Provider Student in an Organized Health Care Education/Training Program; Emergency Provider Emergency Medicine; PCP Family Medicine; Visit Provider Physician Assistant | DX: R50.9 Fever, unspecified (principal); A41.9 Sepsis, unspecified organism; L03.116 Cellulitis of left lower limb | CPT/HCPCS: 99222 ==

== ENCOUNTER → 2023-12-21 22:14 | Outpatient (BNV) | payer MEDICAID, SELFPAY | PROVIDERS: Admitting Provider Student in an Organized Health Care Education/Training Program; Emergency Provider Emergency Medicine Emergency Medical Services; PCP Family Medicine; Visit Provider Student in an Organized Health Care Education/Training Program | DX: A41.9 Sepsis, unspecified organism (principal); F22 Delusional disorders; L03.116 Cellulitis of left lower limb; G93.41 Metabolic encephalopathy; R41.0 Disorientation, unspecified; R44.1 Visual hallucinations | CPT/HCPCS: 99223; 99232; 99233; 99239 ==

== ENCOUNTER 2024-04-10 12:39 | Outpatient (REF) | payer MEDICAID, SELFPAY | END 2024-04-10 12:40 | disposition home or self-care (01) | LOC: HO.CT 12:39 | PROVIDERS: PCP Family Medicine; Visit Provider Internal Medicine Pulmonary Disease | DX: Z12.2 Encounter for screening for malignant neoplasm of respiratory organs (principal); Z87.891 Personal history of nicotine dependence | CPT/HCPCS: 71271 ==

== ENCOUNTER 2024-07-03 08:37 | Outpatient (AMB) | payer MEDICAID, SELFPAY ==
--- OUTSIDE RECORDS SUMMARY | 2024-07-03 08:54 | XMS_ITS | Encounter Summary ---
Author Organization [employer] Address [address] [facility] 7t [place] [address] Care Team Providers Care Garment Steamer Name Role Phone Name, Henry BARTLETT Primary Care Provider [phone] Reason for Visit * Reason Comments Med Refill Encounter Details Date Type Department Care Team ([facility] st Contact Info) Description 07/09/2023 Refill [facility] [address] [place], [place] [phone] Name, MD Henry [address] [place] [address] Chronic pain syndrome Social History Tobacco Use Types Packs/Day Years Used Date Smoking Tobacco: Every Day Cigarettes Passive Smoke Exposure: Current Smokeless Tobacco: Current Alcohol Use Standard Drinks/Week Comments Never 0 (1 standard drink = 0.6 oz pur e alcohol) Depression Answer Date Recorded Patient Health Questionnaire-9 Score 6 09/13/2022 Housing Stability Answer Date Recorded What is your housing situation today? I have aleksey conte 02/26/[address] you li ve. Do you have problems with any of the following? None of the above 02/26/2023 Food Insecurity Answer Date Recorded Within the past 12 months, y ou worried that your food would run out before you got money to buy more: Never True 02/26/2023 Within the past 12 months,th e food you bought just didn't last and you didn't have enough money to get more: Never True Transportation Answer Date Recorded In the past 12 months, has l ack of transportation kept you from medical appts, meetings, work or from getting things needed for daily living? No 02/26/2023 Utilities Answer Date Recorded In the past 12 months, has t he electric, gas, oil or water company threatened to shut off services in your home? No 02/26/2023 Depression Answer Date Recorded Patient Health Questionnaire-2 Score 2 09/13/2022 Comments Unknown Sex and Gender Information Value Date Recorded Sex Assigned at Female 03/12/2022 10:16 AM EDT Legal Sex Female 10:16 AM EDT Gender Identity Female 03/12/2022 10:16 AM EDT Sexual Orientation Straight 03/12/2022 10 :16 AM EDT documented as of this encounter Plan of Treatment Upcoming Encounters Date Type Department Care Team (Late st Contact Info) Description 07/29/2024 10:45 AM EDT Office Visit [facility] [address] [place] [phone] Name, MD Henry [address] [place] [phone] 09/11/2024 9:30 AM EDT Telemedicine [facility] [address] [place] [phone] Suni Rodriguez RN 10/01/2024 10:00 AM EDT Office Visit [facility] [address] [place] [address] Clarisse Bar [address] [place] [address] documented as of this encounter Visit Diagnoses Diagnosis Chronic pain syndrome documented in this encounter Additional Health Concerns Assessment Noted Time PHQ-9 Depression Total Score: 6 09/14/19 23 9:53 AM EDT documented as of this encounter Care Teams Garment Steamer Relationship Specialty Start Date End Date Name, MD Henry [address] [place] [phone] PCP - General Family Medicine 08/19/15 Finn Galindo Inverted Block OperatorAudio/Visual Operator 08/06/23 Mari Carrion Production Tool EngineerAudio/Visual Operator 12/03/23 Chiquita 01/18/24 documented as of this encounter
--- OUTSIDE RECORDS SUMMARY | 2024-07-03 08:54 | XMS_ITS | Encounter Summary ---
Author Organization [employer] Address [address] [facility] 7t [place] [address] Care Team Providers Care Veneer Puller Name Role Phone Name, Henry BARTLETT Primary Care Provider [phone] Encounter Details Date Type Department Care Team (Latest Contact Info) Description 03/20/2021 Abstract [facility] CONVERSIONS Dental, Provider, DDS Social History Tobacco Use Types Packs/Day Years Used Date Smoking Tobacco: Never Assessed Comments Unknown Sex and Gender Information Value Date Recorded Sex Assigned at Female 03/12/2022 10:16 AM EDT Legal Sex Female 10:16 AM EDT Gender Identity Female 03/12/2022 10:16 AM EDT Sexual Orientation Straight 03/12/2022 10 :16 AM EDT documented as of this encounter Plan of Treatment Upcoming Encounters Date Type Department Care Team ( st Contact Info) Description 07/29/2024 10:45 AM EDT Office Visit [facility] [address] [place] [phone] Name, MD Henry [address] [place] [address] 09/11/2024 9:30 AM EDT Telemedicine [facility] [address] [place] [address] [phone] Suni Rodriguez, EDWARD 10/01/2024 10:00 AM EDT Office Visit [facility] ADULT DENTAL [address] [place] [phone] Clarisse Bar [address] [place] [address] documented as of this encounter Visit Diagnoses Not on filedocumented in this encounter Care Teams Veneer Puller Relationship Specialty Start Date End Date Name, MD Henry [address] [place] [phone] PCP - General Family Medicine 08/19/15 Finn Galindo Robot TechnicianInsole Reinforcer 08/06/23 Mari Carrion Clinical Trials ManagerInsole Reinforcer 12/03/23 Chiquita 01/18/24 documented as of this encounter
--- OUTSIDE RECORDS SUMMARY | 2024-07-03 08:54 | XMS_ITS | Encounter Summary ---
Author Organization [employer] Address [address] [facility] 7t [place] [address] Care Team Providers Care Sustainable Agriculture Faculty Name Role Phone Name, Henry BARTLETT Primary Care Provider [phone] Reason for Visit * Reason Onset Date Comments Prior Authorization 09/18/2023 Encounter Details Date Type Department Care Team ([facility] st Contact Info) Description 09/18/2023 Telephone [facility] [address] [place], [place] [phone] Name, MD Henry [address] [place] [address] Prior Authorization Social History Tobacco Use Types Packs/Day Years [...] AM EDT documented as of this encounter Miscellaneous Notes * Telephone Encounter - Yue Olsen NP - 10/18/2023 2:59 PM EDT Happy to complete pa on pcp behalf thanks * Telephone Encounter - Rocky Talamantes - 09/18/2023 10:35 AM EDT Tc from pt calling in regards to pregabalin (Lyrica) 100 MG capsule unsure if medication needed PA.Sap Basis Architect spoke with pharmacy in which they stated medication needs a PA renewal. documented in this encounter Plan of Treatment Upcoming Encounters Date Type Department Care Team (Late st Contact Info) Description 07/29/2024 10:45 AM EDT Office Visit [facility] [address] [place] [phone] Name, MD Henry [address] [place] [address] 09/11/2024 9:30 AM EDT Telemedicine [facility] [address] [place] [phone] Suni Rodriguez RN 10/01/2024 10:00 AM EDT Office Visit [facility] [address] [place] [phone] Clarisse Bar [address] [place] [address] documented as of this encounter Visit Diagnoses Not on filedocumented in this encounter Additional Health Concerns Assessment Noted Time PHQ-9 Depression Total Score: 6 09/14/19 23 9:53 AM EDT documented as of this encounter Care Teams Sustainable Agriculture Faculty Relationship Specialty Start Date End Date Name, MD Henry [address] [place] [address] PCP - General Family Medicine 08/19/15 Finn Galindo Inter Fold Roll CutterRed Cross Worker 08/06/23 Mari Carrion Building Equipment InspectorRed Cross Worker 12/03/23 Chiquiat 01/18/24 documented as of this encounter
--- OUTSIDE RECORDS SUMMARY | 2024-07-03 08:54 | XMS_ITS | Encounter Summary ---
Author Organization [employer] Address [address] [facility] 7t [place] [address] Care Team Providers Care Rampman Name Role Phone Name, Henry BARTLETT Primary Care Provider [phone] Reason for Visit * Reason Comments Med Refill Encounter Details Date Type Department Care Team ([facility] st Contact Info) Description 08/05/2023 Refill [facility] [address] [place], [place] [phone] Name, MD Henry [address] [place] [address] Chronic pain syndrome Social History Tobacco Use [...] Description 07/29/2024 10:45 AM EDT Office Visit [facility] [address] [place] [phone] Name, MD Henry [address] [place] [address] 09/11/2024 9:30 AM EDT Telemedicine [facility] [address] [place] [phone] Suni Rodriguez RN 10/01/2024 10:00 AM EDT Office Visit [facility] [address] [place] [address] Clarisse Bar [address] [place] [address] documented as of this encounter Visit Diagnoses Diagnosis Chronic pain syndrome documented in this encounter Additional Health Concerns Assessment Noted Time PHQ-9 Depression Total Score: 6 09/14/19 23 9:53 AM EDT documented as of this encounter Care Teams Rampman Relationship Specialty Start Date End Date Name, MD Henry [address] [place] [phone] PCP - General Family Medicine 08/19/15 Finn Galindo State EditorAnode Adjuster 08/06/23 Mari Carrion Human Resources Operations ManagerAnode Adjuster 12/03/23 Chiquita 01/18/24 documented as of this encounter
--- OUTSIDE RECORDS SUMMARY | 2024-07-03 08:54 | XMS_ITS | Encounter Summary ---
Author Organization [employer] Address [address] [facility] 7t [place] [address] Care Team Providers Care Chief Supply Chain Officer Name Role Phone Name, Henry BARTLETT Primary Care Provider [phone] Encounter Details Date Type Department Care Team (Late st Contact Info) Description 05/09/2022 Orders Only [facility] [address] [place], [place] [phone] Darlyn Pagan RN [address] [place], [place] [phone] Social History Tobacco Use Types Packs/Day Years Used Date Smoking Tobacco: Never Assessed Comments Unknown Sex and Gender Information Value Date Recorded Sex Assigned at Female 03/12/2022 10:16 AM EDT Legal Sex Female 10:16 AM EDT Gender Identity Female 03/12/2022 10:16 AM EDT Sexual Orientation Straight 03/12/2022 10 :16 AM EDT COVID-19 Exposure Response Date Recorded In the last 10 days, have yo u been in contact with someone who was confirmed or suspected to have Coronavirus/COVID-19? Unable to assess 04/23/2022 3:31 PM EST documented as of this encounter Plan of Treatment Upcoming Encounters Date Type Department Care Team (Late st Contact Info) Description 07/29/2024 10:45 AM EDT Office Visit [facility] [address] [place] [address] [phone] Name, MD Henry [address] [place], [place] [phone] 09/11/2024 9:30 AM EDT Telemedicine [facility] [address] [place] [address] Suni Rodriguez RN 10/01/2024 10:00 AM EDT Office Visit [facility] AD[facility] [address] [place], [place] [phone] Dipika, Clarisse [address] [place] [address] documented as of this encounter Visit Diagnoses Not on filedocumented in this encounter Care Teams Chief Supply Chain Officer Relationship Specialty Start Date End Date Name, MD Henry [address] [place] [address] PCP - General Family Medicine 08/19/15 Finn Galindo Core DipperHand Drawer In Helper 08/06/23 Mari Carrion Director Global Market ResearchHand Drawer In Helper 12/03/23 Chiquita 01/18/24 documented as of this encounter
--- OUTSIDE RECORDS SUMMARY | 2024-07-03 08:54 | XMS_ITS | Data Portability ---
Author Organization [facility], Main Office Address [address], [address] [place] [address] Care Team Providers [employer] Name Role Phone ROSEANN VAZQUEZ - 2ND FLOOR OTHER NAME, SAMEER Primary Care Provider [phone] Assessment Encounter Date Assessment Date Assessment LastModified by Organization Details LastModified Time 01/02/2024 01/02/2024 Spent 30 reviewing records, seeing pt, consulting with staff and documenting [email or web address] Not available 01/02/2024 20:36:57 01/09/2024 01/09/2024 Spent 30 reviewing records, seeing pt, consulting with staff and documenting [email or web address] Not available 01/09/2024 13:17:39 01/15/2024 01/15/2024 spent greateer than 30 minutes with assessment, coordination of services, planning, and discharge documentation [email or web address] Not available 01/15/2024 11:53:57 Plan of Treatment Reminders Order Date Submit Date Provider Last Modified By Organization Details Last Modified Time Details Appointments None record ed. Lab None record ed. Referral None record ed. Procedures None record ed. Surgeries None record ed. Imaging None record ed. Medication Orders None record ed. Patient TargetsNo targets recorded. Patient InstructionsNo instructions recorded. Reason for Referral None Reported. Problems Name Problem SNOMED Code Status Onset Date Resolution Date Notes Provider Name and Address Organization Details Recorded Time Open fracture of left tibia 3558609529473 9105 Active 2023 Juliet Whittaker NP [address] [facility], [address], [place], [address], [facility] [employer] 4 14:31:24 Insulin treated type 2 diabetes mellitus 948998271 Active 2023 Juliet Whittaker NP [address] [facility], [address], [place], [address], [facility] [employer] [facility] 4 14:31:36 Smoker 71722056 Active 2023 Juliet Whittaker NP [address], [place], [address], [facility] [employer] [facility] 4 14:31:04 Hypertensiv e disorder 10067577 Active 2023 Juliet Whittaker NP [address], [place], [address], [facility] [employer] [facility] 4 14:31:42 Hyperlipide jessica 57585949 Active 2023 Juliet Whittaker NP [address], [place], [address], [facility] [employer] [facility] 4 14:31:08 Asthma 249970579 Active 2023 Juliet Whittaker NP [address], [place], [address], [facility] [employer] [facility] 4 14:31:29 Gastroesoph ageal reflux disease without esophagitis 936041168 Active 2023 Juliet Whittaker NP [address], [place], [address], [facility] [employer] [facility] 4 14:30:48 Depressive disorder 83746656 Active 2023 Juliet Whittaker NP [address], [place], [address], [facility] [employer] [facility] 4 14:30:37 Migraine 73947163 Active 2023 Juliet Whittaker NP [address], [place], [address], [facility] [employer] [facility] 4 14:30:45 Chronic pain 07173235 Active 2023 Juliet Whittaker NP [address], [place], [address], [facility] [employer] [facility] 4 14:30:20 Delirium 2746856 Active 2023 Juliet Whittaker NP [address], [place], [address], [facility] 4 14:30:17 Anemia 386314369 Active 2023 Juliet Whittaker NP [address] [facility], [facility] [address], [place], [address], [facility] 4 14:30:42 Chronic constipatio n 158253641 Active 2023 Juliet Whittaker NP [address] [facility], [facility] [address], [place], [address], [facility] 4 14:30:09 Itching 129432277 Active 2023 Shantelle Henderson MD [address] [facility], [facility] [address], [place], [address], [facility] 4 20:36:29 Problem Notes None recorded. Medical Equipment None Reported. Allergies Allergen ID Allergen Name Allergen Category Reaction Reaction Severity Criticality Documentation Date Start Date Code Code System Note Provider Name and Address Organization Details Recorded Time 57703 ibuprofen medicatio n Not available Not available Not available 11/13/2023 5640 RxNorm Not Available Not Available Not Available 64778 iodine medicatio n Not available Not available Not available 11/13/2023 5933 RxNorm Not Available Not Available Not Available Medications Name Sig Start Date Stop Date Status Note LastModified by Organization Details LastModified Time Percocet 7.5 mg-325 mg tablet give one tab po q am at 0800 2023 active may have oxycodone in 4 hours prn from percocet for breakthrou gh pain'insur ance only approving once a day and this is what pt requests for pain Not Available Not Available Not Available Ativan 0.5 mg tablet 1 tab po q 6 hrs prn x 14 days E KIT 2023 active Not Available Not Available Not Avai lable oxycodone 5 mg tablet 1 tab q 4 hrs prn severe pain 2023 active Not Available Not Available Not Avai lable Lyrica 100 mg capsule Take 1 capsule 3 times a day by oral route. 2023 active Not Available Not Available Not Avai lable Vitals Date Recorded Body height Systolic blood pressure Diastolic blood pressure Provider Name and Address Organization Details Last Updated DateTime 12/21/2023 154.94 cm 130 mm[Hg] 77 mm[Hg] Ethan Lepe MD [address], [place], [address], [facility] 12/21/2023 16:38:09 Date Recorded Body height Heart rate Respiratory rate Body temperature Oxygen saturation Oxygen saturation in Arterial blood by Pulse oximetry Systolic blood pressure Diastolic blood pressure Provider Name and Address Organization Details Last Updated DateTime 4 154.94 cm 74 /min 18 /min 98 [degF] 97 % 97 % 132 mm[Hg] 70 mm[Hg] SPIKE CARRILLO NP [address] [facility], [address], [place], [address], [facility] 4 12:03:14 Date Recorded Body height Body mass index (BMI) Body weight Heart rate Respiratory rate Body temperature Oxygen saturation Oxygen saturation in Arterial blood by Pulse oximetry Systolic blood pressure Diastolic blood pressure Provider Name and Address Organization Details Last Updated DateTime 4 154.94 cm 35.7 kg/m2 17574.9 6 g 70 /min 18 /min 98 [degF] 97 % 97 % 128 mm[Hg] 60 mm[Hg] Shantelle Henderson MD [address], [place], [address], [facility] 4 17:41:59 Date Recorded Body height Heart rate Respiratory rate Body temperature Oxygen saturation Oxygen saturation in Arterial blood by Pulse oximetry Systolic blood pressure Diastolic blood pressure Provider Name and Address Organization Details Last Updated DateTime 4 154.94 cm 88 /min 18 /min 97.3 [degF] 97 % 97 % 150 mm[Hg] 83 mm[Hg] SPIKE CARRILLO NP [address], [place], [address], [facility] 4 13:17:27 Date Recorded Body height Heart rate Respiratory rate Body temperature Oxygen saturation Oxygen saturation in Arterial blood by Pulse oximetry Provider Name and Address Organization Details Last Updated DateTime 4 154.94 cm 74 /min 18 /min 97.5 [degF] 97 % 97 % Juliet Whittaker NP [address] [facility], [address], [place], [address], [facility] [employer] [facility] 4 11:04:12 Social History Question Answer Notes LastModified by Organizat ion Details LastModified Time Tobacco Smoking Status Current Every Day Smoker SPIKE CARRILLO NP [address] [facility] [address] [facility], [address], [place], [address], [facility] [employer] [facility] 11/13/2023 15:19:45 Do You Have An Advance Directive? Yes Information not available 11/19/2023 What Is Your Level Of Alcohol Consumption? None [email or web address] Information not available 11/13/2023 What Is Your Code Status? DNR/DNI No Dialysis Information not available 11/13/2023 Where Do You Live? Apartment Alone Information not available 11/19/2023 Legal Guardian? No Informati on not available 11/19/2023 Do You Have A Medical Power Of Dredge Operator? Yes Has HCP Not Invoked Information not available 11/19/2023 What Was The Date Of Your Most Recent Tobacco Screening? 11/19/2023 Information not available 11/19/2023 Do You Have An Out Of Hospital DNR? Yes [email or web address] Information not available 11/13/2023 What Is Your Relationship Status? Lives Locally And Is Supportive. (not Father Of Her Kids) Information not available 11/19/2023 How Much Tobacco Do You Smoke? 1 PPD [email or web address] Information not available 11/13/2023 Do You Use Any Illicit Or Recreational Drugs? No [email or web address] Information not available 11/13/2023 Has Tobacco Cessation Counseling Been Provided? Yes She Says She Has Been Smoking 1 Cig/d Since Here And Will Try To Keep To That. Information not available 11/19/2023 On What Date Was Tobacco Cessation Counseling Provided? 11/19/2023 Information not available 11/19/2023 How Many Years Have You Smoked Tobacco? 48 [email or web address] Information not available 11/13/2023 Do You Or Have You Ever Used Any Other Forms Of Tobacco Or Nicotine? No [email or web address] Information not available 11/13/2023 Sex: Unknown Functional Status None recorded. Mental Status None recorded. Family History Nothing Reported Notes:n/c Medical History No medical history recorded. Gynecological HistoryNo gynecological history recorded. Obstetrics History GPAL:G 0 P 0 0 0 0 Immunizations Vaccine Type Date Status Note Provider Nam e and Address Organization Details Recorded Time Hep B, unspecified formulation 5 completed Marietta Zachariah null, [facility] 11/20/2023 14:12:27 Hep B, unspecified formulation 6 completed [facility] 11/20/2023 14:12:36 Hep B, unspecified formulation 6 completed [facility] 11/20/2023 14:12:44 Hep B, unspecified formulation 3 completed [facility] 11/20/2023 14:12:52 Hep B, unspecified formulation 3 completed [facility] 11/20/2023 14:13:01 Hep B, unspecified formulation 9 completed [facility] 11/20/2023 14:13:12 Tdap 9 completed Marietta Zachariah [facility] 11/20/2023 14:13:29 Td(adult) unspecified formulation 7 completed Marietta Zachariah [facility] 11/20/2023 14:13:42 Td(adult) unspecified formulation 0 completed Marietta Zachariah [facility] 11/20/2023 14:13:50 Pneumococcal conjugate PCV20, polysaccharide CEW420 conjugate, adjuvant, PF 4 completed Marietta Zachariah [facility] 11/20/2023 14:21:19 pneumococcal polysaccharide PPV23 5 completed [facility] 11/20/2023 14:21:52 influenza, unspecified formulation 3 completed [facility] Son[facility] 11/20/2023 14:22:14 influenza, unspecified formulation 3 completed [facility] 11/20/2023 14:22:25 Hep A, unspecified formulation 5 completed [place] [facility] 11/20/2023 14:22:56 Hep A, unspecified formulation 6 completed [place] [facility] 11/20/2023 14:23:07 SARS-COV-2 (COVID-19) vaccine, UNSPECIFIED 1 completed [place] [facility] 11/20/2023 14:23:28 SARS-COV-2 (COVID-19) vaccine, UNSPECIFIED 1 completed [facility] 11/20/2023 14:23:41 SARS-COV-2 (COVID-19) vaccine, UNSPECIFIED 1 completed [place] [facility] 11/20/2023 14:23:54 SARS-COV-2 (COVID-19) vaccine, UNSPECIFIED 3 completed [facility] 11/20/2023 14:24:04 SARS-COV-2 (COVID-19) vaccine, UNSPECIFIED 3 completed [facility] 11/20/2023 14:24:14 Past Encounters Encounter ID Performer Location Encounter Start Date Encounter Closed Date Diagnosis/Indication Diagnosis SNOMED-CT Code Diagnosis ICD10 Code Diagnosis Note [id number] SPIKE CARRILLO NP [address] [address] 11/13/2023 14:55:15 11/21/2023 12:53:23 Open fracture of left tibia [id number] 3441556 S82.292B S/P ORIF at [facility] by Dr. Escobar. procedure well.Soft cast in placeNWBPT OT eval and tx.On lovenox 40 mg qd x 28d for ACContinue APAP 1000 mg tidOn oxycodone - currently 5 mg or 7.5 mg q 4 hr prn. Change to 5 or 10 mg q 4 hr prnMiralax bid for bowelsKefl ex 500 mg qid to complete 10 days of abx. proph. for open fx. Last day 11/17. Plus probioticO rtho follow up 11/24Monito r VS, labs, CSM, painUpdate Ortho with concerns Delirium 5935145 F09 Problemati c in hosp.Impro rajiv with pain mgmt, fracture repair, and tx. of urinary retention. Hosp. meds reviewed, appears ativan used in hosp. during agitated event. Currently very agitated and upsetPlan -get usual psych meds orderedman age pain - liberalizi ng dose as aboveget nicoderm patchadd ativan 0.5 mg q 6 prn x 14 daysprovid e supportive care, family may be helpful to calm her downMonito r closely Chronic pain 10716228 G8 9.29 Increasing oxy as above - 5 or 10 mg q4 hr prn(FYI uses percocet 7.5/325 tid prn at home)William nue other home meds:Dulox etine 60 mg bidLyrica 100 mg tidTizanid ine 4 mg q8 hr prnMonitor use and effect. Asthma 147527320 J45.90 9 Currently on:albuter ol MDI prnzyrtec 10 mg qdFlonase nasal spray qdBreo Ellipta 1 inh qdIncruse Ellipta 1 inh qdMonitor resp. sx. Insulin tr eated type 2 diabetes mellitus 594953636 Z79.4 Continue:C arb control dietLevemi r 30 units sq qdMetformi n 500 mg bidAdd lispro SSI tid Hypertensive disorder 38 736469 I10 Continue losartan 50 mg qdMonitor VS Hyperlipidemia 10290941 E78.5 Continue atorvastat in 20 mg qd Depressive disorder 3548 9007 F32.A Continue:W ellbutrin XL 150 mg qdDuloxeti ne 60 mg bidTrazodo ne 100 mg q HS Currently agitated, adding ativan prn x 14 d as above Gastroesop hageal reflux disease without esophagitis 057535156 K21.9 Continue:p epcid 20 mg q HSpantopra zole 40 mg bidMonitor GI sx. Anemia 688852106 D64.9 Continue Fe Gluc 324 mg qdMonitor CBC, S/S active bleed Migraine 00884515 G43.90 9 Continue sumatripta n 100 mg qd prn [id number] SHANNON CASTELLANO [facility] [address] [place] [address] 11/15/2023 11:34:00 11/21/2023 13:27:05 Open fracture of left tibia [id number] 9836713 S82.292B S/P ORIF at [facility] by Dr. Escobar. procedure well.Soft cast in placeNWBPT OT eval and tx.On lovenox 40 mg qd x 28d for ACContinue APAP 1000 mg tidOn oxycodone - currently 5 mg or 7.5 mg q 4 hr prn. Change to 5 or 10 mg q 4 hr prnMiralax bid for bowelsKefl ex 500 mg qid to complete 10 days of abx. proph. for open fx. Last day 11/17. Plus probioticO rtho follow up 11/24Monito r VS, labs, CSM, painUpdate Ortho with concerns Chronic pain 14970779 G8 9.29 Increasing oxy as above - 5 or 10 mg q4 hr prn(FYI uses percocet 7.5/325 tid prn at home)William nue other home meds:Dulox etine 60 mg bidLyrica 100 mg tidTizanid ine 4 mg q8 hr prnMonitor use and effect. Asthma 853113562 J45.90 9 Currently on:albuter ol MDI prnzyrtec 10 mg qdFlonase nasal spray qdBreo Ellipta 1 inh qdIncruse Ellipta 1 inh qdMonitor resp. sx. Insulin tr eated type 2 diabetes mellitus 311407096 Z79.4 Continue:C arb control dietLevemi r 30 units sq qdMetformi n 500 mg bidAdd lispro SSI tid Hypertensive disorder 38 214795 I10 Continue losartan 50 mg qdMonitor VS Hyperlipidemia 15671430 E78.5 Continue atorvastat in 20 mg qd Depressive disorder 9029 9007 F32.A Continue:W ellbutrin XL 150 mg qdDuloxeti ne 60 mg bidTrazodo ne 100 mg q HSmood is good today, she is pleasant Gastroesop hageal reflux disease without esophagitis 034840112 K21.9 Continue:p epcid 20 mg q HSpantopra zole 40 mg bidMonitor GI sx. [id number] Juliet Whittaker, [facility] [address] [place] [address] 11/18/2023 15:52:50 11/21/2023 14:49:22 Open fracture of left tibia [id number] 6833079 S82.292B S/P ORIF at [facility] by Dr. Meadows with Soft cast in placeNWBPT OT eval and tx.contlov enox 40 mg qd x 28d for ACAPAP 1000 mg tidoxycodo ne 5 or 10 mg q 4 hr prndc Miralax bid for bowels, refusing to takesenna s 1 tab po dailymom 60 cc po x 1 todayKefle x 500 mg qid to complete 10 days of abx. proph. for open fx. Last day 11/17 today. Plus probioticO rtho follow up 11/24Monito r VS, labs, CSM, painUpdate Ortho with concernssh e requests to go home, will need social service to assess readiness and services Chronic pain 66279131 G8 9.29 oxy as above - 5 or 10 mg q4 hr prn, recently increased( FYI uses percocet 7.5/325 tid prn at home)Willaim nue other home meds:Dulox etine 60 mg bidLyrica 100 mg tidTizanid ine 4 mg q8 hr prnMonitor use and effect. Asthma 047196478 J45.90 9 Currently on:albuter ol MDI prnzyrtec 10 mg qdFlonase nasal spray qdBreo Ellipta 1 inh qdIncruse Ellipta 1 inh qdMonitor resp. sx. Insulin tr eated type 2 diabetes mellitus 467284453 Z79.4 Continue:C arb control dietLevemi r 30 units sq qdMetformi n 500 mg bidAdd lispro SSI tid Hypertensive disorder 38 347840 I10 Continuelo sartan 50 mg qdMonitor VS Depressive disorder 0609 9007 F32.A very upset todayConti nue:Wellbu marisa XL 150 mg qdDuloxeti ne 60 mg bidTrazodo ne 100 mg q HSmonitor mood Gastroesop hageal reflux disease without esophagitis 619936806 K21.9 Continue:p epcid 20 mg q HSpantopra zole 40 mg bidMonitor GI sx. Smoker 27025089 F17.200 pt refuses nicotine patch11/17 startnicor ette gum 2 mg po q 1-2 hoursmonit or and encourage quitting Acute constipation 9006 K59.00 11/17 states no bm in a weekdc Miralax bid for bowelssenn a s 1 tab po dailymom 60 cc po x 1 todaymonit or [id number] Shantelle Henderson MD [address] [place] [address] 11/19/2023 16:09:47 11/21/2023 15:41:04 Open fracture of left tibia 6108539703 1122179 S82.292B Recovering from ORIF for open fx of left tib-fib.Is NWB on LLENeeds PT/OT for strengthen ing, balance, gait training, safety and function.C ontinue fall precaution s.Monitor for safety.Con tinue lovenox 40 mg subq qd x 28d for DVT prophylaxi s (end date 12/21)William nue APAP 1000 mg TID and oxycodone 5-10 mg q 4 hrs prn for pain.Compl eted cephalexin for abx prophylaxi s.Understa nds need to stay here for safety while NWB.F/U with ortho on 11/24 at 10 AM as planned. Smoker 26552124 F17.200 Doing well with 1 cig/dayCon tinue nicorette gum 2 mg po q 1-2 hours when needed.Con tinue to encourage cessation. Chronic pain 37230912 G8 9.29 From neuropathy and back pain.William nue meds as above and duloxetine 60 mg BID, Lyrica 100 mg TID and tizanidine 4 mg q 8 hrs prnMonitor use and effect. Hypertensive disorder 38 572785 I10 Only 2 BPs checked since here.Will order daily.Cont inue losartan 50 mg qdMonitor BP and labs. Depressive disorder 6124 9007 F33.8 Mood good todayConti nue Wellbutrin XL 150 mg qd, duloxetine 60 mg BID and trazodone 100 mg qhs.Also started on lorazepam 0.5 mg q 6 hrs prn for agitation. Monitor mood.Consu lt psych prn Gastroesop hageal reflux disease without esophagitis 674562927 K21.9 No current sxs.Contin ue famotidine 20 mg qd and pantoprazo le 40 mg qd. (written as BID on d/c summary, but qd in PCC, will leave for now and monitor sxs).Monit or GI sx. Chronic constipation 236 157691 K59.09 She tells me this is a chronic problem and in [place] gave her something sweet that worked well. Figured out it was lactulose. We discuss that that is something we usually use later on and try gentler stuff first.Will increase senna to 2 tabs qhs and continue prn MOM.Monito r bowel function. Chronic ob structive pulmonary disease 75479905 J44.89 More likely COPD than asthma, although may be crossover syndrome.N o current sxs.Contin ue Breo ellipta 200/25 mcg qd, Incruse ellipta 62.5 mcg qd, cetirizine 10 mg qd, fluticason e nasal spray 2 sprays in each nostril qd, and albuterol MDI 2 puffs q 6 hrs prn.Monito r resp. 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 Anemia 634866793 D64.9 Acute on chronic.Co ntinue FeSO4 325 mg qd.Monitor labs. Migraine 72070402 G43.80 9 Had a migraine inpt, none since here.William nue sumatripta n 100 mg qd prn.Also on topiramate 50 mg BID and riboflavin 400 mg qd per d/c med list, but not in PCC, added.Amina tor sxs. [id number] Juliet Whittaker NP [address] [address] 11/22/2023 08:21:02 2023 15:10:12 Open fracture of left tibia 1050179498 5772449 S82.292B Recovering from ORIF for open fx of left tib-fib with NWB to LLEContPT/ OT for strengthen ing, balance, gait training, safety and function.C ontinue fall precaution s.Monitor for safety.valentine enox 40 mg subq qd x 28d for DVT prophylaxi s (end date 12/11)APAP 1000 mg TID and oxycodone 5-10 mg q 4 hrs prn for pain. (requiring 2-3 times per day) (was on 7.5 mg percocet at home prior to fx)Complet ed cephalexin for abx prophylaxi s due to open woundUnder stands need to stay here for safety while NWB and agreeable to revisit on saturdayF/U with ortho on 11/24 at 10 AM as planned. Chronic constipation 236 452388 K59.09 chronic problemrep orts having bowel movementsc ontdocusat e 100 mg po bidsenna-s 2 tabs qhs and continue prn MOM.Monito r bowel function. Smoker 85650141 F17.200 Doing well with 1 cig/dayCon tnicorette gum 2 mg po q 1-2 hours prnencoura ge cessation. Chronic pain 55438888 G8 9.29 From neuropathy and back pain.Contm eds as above and duloxetine 60 mg BIDLyrica 100 mg TIDtizanid ine 4 mg q 8 hrs prnMonitor use and effect.see ms she has refused a few doses of lyrica but denies this Chronic ob structive pulmonary disease 10790154 J44.89 stableNo current sxs.Contin ueBreo ellipta 200/25 mcg qd, Incruse ellipta 62.5 mcg qd, cetirizine 10 mg qd, fluticason e nasal spray 2 sprays in each nostril qd, and albuterol MDI 2 puffs q 6 hrs prn.Monito r resp. 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 Depressive disorder 3548 9007 F33.8 Mood good todayConti nueWellbut rin XL 150 mg qd, duloxetine 60 mg BID and trazodone 100 mg qhs.Also started on lorazepam 0.5 mg q 6 hrs prn for agitation until 11/26 as rehab has been challengin g for her.Monito r mood.Consu lt psych prn Gastroesop hageal reflux disease without esophagitis 206671145 K21.9 No current sxs.Contin uefamotidi ne 20 mg qd and pantoprazo le 40 mg qd. (written as BID on d/c summary, but qd in PCC, will leave for now and monitor sxs).Monit or GI sx. Anemia 031088457 D64.9 Acute on chronic.Co ntinueFeSO 4 325 mg qd.Monitor labs. Dysuria 36612510 R30.0 pt had kenny removed on 11/19, no bladder scan available but urinating good amounts per pt and no distention has scant bleeding per pt and has some11/21 urinalysis with c & s [id number] Juliet Whittaker NP [address] [address] 11/25/2023 14:11:11 2023 15:32:35 Open fracture of left tibia [id number] S82.292B Recovering from [facility]IF for open fx of left tib-fib with NWB to LLEContPT/ OT for strengthen ing, balance, gait training, safety and function.C ontinue fall precaution s.Monitor for safety.valentine enox 40 mg subq qd x 28d for DVT prophylaxi s (end date 12/11)APAP 1000 mg TID and oxycodone 5-10 mg q 4 hrs prn for pain. (requiring 2-3 times per day) (was on 7.5 mg percocet at home prior to fx)Complet ed cephalexin for abx prophylaxi s due to open wound She remains NWB, has Ortho f/u 11/25/23 as planned at 940 am. Recommenda tions for visit:Plac ed in AEB out 2-3x /day for romMay PWB in boot onlyShe may go home when safe with wheelchair /walkerfu in 6 weekscanno t read all of consult rec and request progress note. F/U with ortho in 6 weeks Anemia 493350512 D64.9 Acute on chronic.Co ntinueFeSO 4 325 mg qd.Monitor labs. Smoker 90470065 F17.200 Doing well with 1 cig/day now request to quit totally and would like patch 11/24 dc nicorette gum 2 mg po q 1-2 hours prn11/24 start nicotine patch 14 transderma l q 24 hoursencou rage cessation. Chronic pain 94536585 G8 9.29 From neuropathy and back pain.Contm eds as aboveanddu loxetine 60 mg BIDLyrica 100 mg TIDtizanid ine 4 mg q 8 hrs prnMonitor use and effect.see ms she has refused a few doses of lyrica but denies this [id number] Juliet Whittaker NP [address] [address] 11/26/2023 12:25:38 2023 16:07:03 Open fracture of left tibia [id number] S82.292B Recovering from ORIF for open fx of left tib-fib with NWB to LLEContPT/ OT for strengthen ing, balance, gait training, safety and function.C ontinue fall precaution s.Monitor for safety.valentine enox 40 mg subq qd x 28d for DVT prophylaxi s (end date 12/11)APAP 1000 mg TID and oxycodone 5-10 mg q 4 hrs prn for pain. (requiring 2-3 times per day still)(was on 7.5 mg percocet at home prior to fx)Complet ed cephalexin for abx prophylaxi s due to open woundwill consider decrease or change to percocet in near future to match prior dosing Ortho f/u 11/25/23Rec karin quintero for visit:Plac ed in AEB out 2-3x /day for romMay PWB in boot onlyShe may go home when safe with wheelchair /walkerfu in 6 weekscanno t read all of consult rec and request progress note. 11/26/23 with macerated open areas- sutures and soft cast removed on 11/24 at ortho visit.Will recommend ns wash, pat dry, and zerform to these wounds daily with ty wrap and wound consult for optimal healing. F/U with ortho in 6 weeks Anemia 764320357 D64.9 stableAcut e on chronic.Co ntinueFeSO 4 325 mg qd.Monitor labs. Smoker 83700330 F17.200 Doing well with 1 cig/day now request to quit totally and would like patch 11/24 dc nicorette gum 2 mg po q 1-2 hours prn11/24 start nicotine patch 14 transderma l q 24 hours11/25 seems happy with patch todayencou rage cessation. Chronic pain 95233000 G8 9.29 From neuropathy and back pain.Contm eds as aboveanddu loxetine 60 mg BIDLyrica 100 mg TIDtizanid ine 4 mg q 8 hrs prnMonitor use and effect.see ms she has refused a few doses of lyrica but denies this Type 2 kiarra betes mellitus 63515387 E11.42 E11.21 BS improving with increased dosingWith neuropathy and nephropath y.11/21 increase Levemir 30 units sq qd to 34 units qd, contmetfor min 500 mg BID and SSI.Pain meds as above for neuropathy .Sugars have frequently 99-270s hereNo recent HgA1Cs found in any hospital system, most recent 2020.monit or for adjustment s Depressive disorder 8465 8772 F33.8 Mood good todayConti nueWellbut rin XL 150 mg qd, duloxetine 60 mg BID and trazodone 100 mg qhs.11/25 dc for nonuse--lo razepam 0.5 mg q 6 hrs prn for agitation until 11/26 as rehab has been challengin g for her.Monito r mood.Consu lt psych prn Gastroesop hageal reflux disease without esophagitis 499161573 K21.9 No current sxs.Contin uefamotidi ne 20 mg qdpantopra zole 40 mg qd. (written as BID on d/c summary, but qd in PCC, will leave for now and monitor sxs).Monit or GI sx. [id number] SPIKE CARRILLO NP [facility] [place] [address] 12/03/2023 10:34:04 12/04/2023 20:41:13 Open fracture of left tibia [id number] S82.292B Recovering from ORIF for open fx of left tib-fib with NWB to LLE S/P recent hosp. due to increased pain and concern of oozing from wounds. Seen by Ortho, work up unremarkab le, pain improved. Continue:N WB per most recent note from Dr. Meadows in hosp.Fract ure boot when OOBPT OT eval and tx.lovenox 40 mg subq qd x 28d for DVT prophylaxi s (end date 12/11)APAP 1000 mg TIDOxycodo ne 5-10 mg q 4 hrs prn for pain, still using, monitor (was on 7.5 mg percocet at home prior to fx) Completed cephalexin for abx prophylaxi s due to open woundMonit or Depressive disorder 3548 9007 F33.8 Mood good today, no agitation or behaviors. ContinueWe llbutrin XL 150 mg qd, duloxetine 60 mg BID and trazodone 100 mg qhs.11/25 dc for nonuse--lo razepam 0.5 mg q 6 hrs prn for agitation until 11/26 as rehab has been challengin g for her.Monito r mood.Consu lt psych prn Anemia 570838037 D64.9 stableAcut e on chronic.Co ntinueFeSO 4 325 mg qd.Monitor labs. Smoker 24693169 F17.200 Waxes and wanes re: smoking.Cu rrently back on the nicoderm patch.Enco urage smoking cessation Chronic pain 65217987 G8 9.29 From neuropathy and back pain.Contm eds as aboveanddu loxetine 60 mg BIDLyrica 100 mg TIDtizanid ine 4 mg q 8 hrs prnMonitor use and effect. Type 2 kiarra betes mellitus 63359565 E11.42 E11.21 BS controlled , most readings 100s, occ. 200s.With neuropathy and nephropath y.On 11/21, increased Levemir from 30 units to 34 units qd, continueCo ntinue metformin 500 mg BID and SSI.Pain meds as above for neuropathy .Monitor Gastroesop hageal reflux disease without esophagitis 989867728 K21.9 No current sxs.Contin uefamotidi ne 20 mg qdpantopra zole 40 mg qd. (written as BID on d/c summary, but qd in PCC, will leave for now and monitor sxs).Monit or GI sx. [id number] Juliet Whittaker, LANCE [address] [address] 12/11/2023 08:34:56 12/13/2023 13:43:14 Open fracture of left tibia [id number] 6409944 S82.292B Recovering from ORIF for open fx of left tib-fib with NWB to LLE repaired on 11/10/[address] Meadows at [facility] 11/29 S/P recent hosp. due to increased pain and concern of oozing from wounds. Seen by Ortho, work up unremarkab le with xray US , pain improved, and no s/s of infection Continue:N WB per most recent note from Dr. Meadows in hosp.Fract ure boot when OOB, NWBPT OT eval and tx.lovenox 40 mg subq qd x 28d for DVT prophylaxi s (end date 12/11)APAP 1000 mg TID 12/08 dc Oxycodone 5-10 mg q 4 hrs prn for pain, still using, monitor (was on 7.5 mg percocet at home prior to fx)12/08 start percocet 7.5 mg po q 8 hours prn painComple brit cephalexin for abx prophylaxi s due to open woundMonit or for s/s of infection Depressive disorder 8445 9463 F33.8 Mood good today, no agitation or behaviors. ContinueWe llbutrin XL 150 mg qdduloxeti ne 60 mg BIDtrazodo ne 100 mg qhs.Monito r mood.Consu lt psych prn Anemia 620467850 D64.9 stableAcut e on chronic.Co ntFeSO4 325 mg qd.Monitor labs weekly Smoker 10536363 F17.200 Waxes and wanes re: smoking.Cu rrently back on the nicoderm patchwill leave patch on JUL as she continues to change her mind3-10 minutes spent on smoking cessation counseling Encourage smoking cessation Chronic pain 28586906 G8 9.29 From neuropathy and back pain.Conts ee meds aboveand contduloxe richie 60 mg BIDLyrica 100 mg TIDtizanid ine 4 mg q 8 hrs prnMonitor use and effect. Type 2 kiarra betes mellitus 21736352 E11.42 E11.21 BS controlled , most readings 100s, occ. 200s.With neuropathy and nephropath y.On 11/21, increased Levemir from 30 units to 34 units qd, with improved BSContinue metformin 500 mg BID and SSI.Pain meds as above for neuropathy .Monitor Gastroesop hageal reflux disease without esophagitis 664389530 K21.9 No current sxs.Contfa motidine 20 mg qdpantopra zole 40 mg qdMonitor GI sx. Chronic constipation 236 308750 K59.09 chronic problemrep orts having bowel movementsc ontdocusat e 100 mg po bidsenna-s 2 tabs qhs and continue prn MOM.Monito r bowel function. Chronic ob structive pulmonary disease 74107135 J44.89 stableNo current sxs.Contin ueBreo ellipta 200/25 mcg qd, Incruse ellipta 62.5 mcg qd, cetirizine 10 mg qd, fluticason e nasal spray 2 sprays in each nostril qd, and albuterol MDI 2 puffs q 6 hrs prn.Monito r resp. status Hypertensive disorder 38 331682 I10 slightly elevated but improvingw ill monitor as likely slightly elevated prior with pain and prior to medsContin uelosartan 50 mg qdMonitor BP and labs. [id number] Juliet Whittaker NP [facility] [address] 12/18/2023 09:58:36 12/24/2023 14:47:22 Open fracture of left tibia 9757050604 9142882 S82.292B Recovering from ORIF for open fx of left tib-fib with NWB to LLE repaired on 11/10/[address] Meadows at [facility] of note: 11/29 S/P recent hosp. due to increased pain and concern of oozing from wounds. Seen by Ortho, work up unremarkab le with xray US , pain improved, and no s/s of infection, no change is medication s at this visit Continue:N WB per most recent note from Dr. Meadows in hosp.Fract ure boot when OOB, NWBPT OT eval and tx.complet ed lovenox 40 mg subq qd x 28d for DVT prophylaxi s (end date 12/11)fu Dr Meadows 01/05 at 0900 contduloxe richie 60 mg po bidtizandi dine 4 mg po q 8 hours prn spasmslyri ca 100 mg po tidpercoce t 7.5 mg po q am as this is all insurance will allow and supplement with oxycodone 5 mg po q 4 hours prn pain/ dc 10 mg po oxycodone doseof note: refuses tylenol sched and dc'd Completed cephalexin for abx prophylaxi s due to open woundMonit or for s/s of infection Depressive disorder 3548 9007 F33.8 Mood good today, no agitation or behaviors. ContinueWe llbutrin XL 150 mg qdduloxeti ne 60 mg BIDtrazodo ne 100 mg qhs.Monito r mood.Consu lt psych prn Anemia 713757801 D64.9 stableAcut e on chronic.Co ntFeSO4 325 mg qd.Monitor labs weekly Smoker 31430731 F17.200 Waxes and wanes re: smoking.Cu rrently back on the nicoderm patchwill leave patch on JUL as she continues to change her mind3-10 minutes spent on smoking cessation counseling Encourage smoking cessation Chronic pain 20760623 G8 9.29 From neuropathy and back pain.Conts ee meds aboveand contduloxe richie 60 mg BIDLyrica 100 mg TIDtizanid ine 4 mg q 8 hrs prnMonitor use and effect. Type 2 kiarra betes mellitus 62846822 E11.42 E11.21 BS controlled , most readings 100s, occ. 200s.With neuropathy and nephropath y.On 11/21, increased Levemir from 30 units to 34 units qd, with improved BSContinue metformin 500 mg BID and SSI.Pain meds as above for neuropathy .Monitor Gastroesop hageal reflux disease without esophagitis 937921735 K21.9 No current sxs.Contfa motidine 20 mg qdpantopra zole 40 mg qdMonitor GI sx. Chronic constipation 236 726297 K59.09 chronic problemrep orts having bowel movementsc ontdocusat e 100 mg po bidsenna-s 2 tabs qhs and continue prn MOM.Monito r bowel function. Chronic ob structive pulmonary disease 82749238 J44.89 stableNo current sxs.Contin ueBreo ellipta 200/25 mcg qd, Incruse ellipta 62.5 mcg qd, cetirizine 10 mg qd, fluticason e nasal spray 2 sprays in each nostril qd, and albuterol MDI 2 puffs q 6 hrs prn.Monito r resp. status Hypertensive disorder 38 875668 I10 slightly elevated but improvingw ill monitor as likely slightly elevated prior with pain and prior to medsContin uelosartan 50 mg qdMonitor BP and labs. [id number] Ethan Lepe MD [facility] [address] 12/21/2023 16:37:35 12/24/2023 15:57:18 Cellulitis of left lower limb 4952361400 1775386 L03.116 concern for infection with altered mental statusstat CBC with diff, blood cultures x 2, bmp, UAafter labs drawn startkefle x 500 mg qid x 10 daysprobio tic x 2 weeksto ED for decompensa tion Altered mental status 41 1899046 G93.41 see above [id number] SPIKE CARRILLO NP [facility] [address] 12/31/2023 11:32:41 01/03/2024 15:58:35 Metabolic encephalopathy 78982853 G93.41 Altered MS - treated for infection and concern of serotonin syndrome.S till with altered MS upon return.See n by Psych at [facility] - meds adjusted - currently off cymbalta and wellbutrin and trazodone. Pregabalin and topamax continued. Recommend outpt. psych follow up re: encephalop athy and ? restart of cymbalta and wellbutrin .Will refer to Psych provider here, continue meds, continue to monitor behaviors and MS. Cellulitis of left lower limb 0432967981 7596562 L03.116 Initially treated with IV Vanco, ceftriaxon e, and ampicillin .Seen by ID, abx. changed to cefepime and doxycyclin e, completed 10 days of tx. with improvemen t in cellulitis .Continue to monitor LLE, VS, and labs.CBC, BMP x 1 in am, then q mond. x 2 Insulin tr eated type 2 diabetes mellitus 309170668 Z79.4 Levemir stopped in hosp., BS stayed mostly euglycemic Upon discharge, recommende d metformin 500 mg qd, lispro SSIContinu e Carb control dietMonito r BS and need to adjust meds. Open fract ure of left tibia 8762092007 3062546 S82.292B Recovering from ORIF for open fx of left tib-fib with NWB to LLE Continue:N WB per most recent note from Dr. Meadows in hosp.Fract ure boot when OOBPT OT eval and tx.lovenox 40 mg subq qd x 28d for DVT prophylaxi s complete (end date 12/11)APAP 1000 mg TIDOxycodo ne 5 mg q 4 hrs prn for pain, still using, monitor (was on 7.5 mg percocet at home prior to fx)Follow up with Ortho as sched. Delirium 7035855 F09 Problemati c during first hosp.Impro rajiv with pain mgmt, fracture repair, and tx. of urinary retention. Hosp. meds reviewed, appears ativan used in hosp. during agitated event. Continues with behaviors and agitation; see above POC Depressive disorder 2163 3218 F33.8 See above, meds adjusted in hosp. due to encephalop athy; concern of serotonin syndrome.S een by Psych, Wellbutrin XL 150 mg qd, duloxetine 60 mg BID and trazodone 100 mg qhs stopped.Re commend outpt. Psych to monitor behaviors and whether to consider restart of wellbutrin and/or duloxetine .Monitor mood and behaviors, will refer to Psych provider here.Consu lt psych prn Gastroesop hageal reflux disease without esophagitis 279455008 K21.9 No current sxs.Contin uefamotidi ne 20 mg qdpantopra zole 40 mg qd. (written as BID on d/c summary, but qd in PCC, will leave for now and monitor sxs).Monit or GI sx. Hypertensive disorder 38 485503 I10 Continue losartan 50 mg qdMonitor VS Hyperlipidemia 19457934 E78.5 Continue atorvastat in 20 mg qd Migraine 63148611 G43.80 9 Continue sumatripta n 100 mg qd prn Chronic pain 42340568 G8 9.29 From neuropathy and back pain.dulox etine 60 mg BID stopped in hosp. due to encephalop athy.Remai ns on:Lyrica 100 mg TIDAPAP prntizanid ine 4 mg q 8 hrs prnMonitor use and effect. Chronic constipation 236 276276 K59.09 continue senna s 2 q HS and colace 100 mg bidadjust prn Asthma 094019293 J45.90 9 Currently on:albuter ol MDI prnzyrtec 10 mg qdFlonase nasal spray qdBreo Ellipta 1 inh qdIncruse Ellipta 1 inh qdMonitor resp. sx. Anemia 444707139 D64.9 stableAcut e on chronic.Co ntinueFeSO 4 325 mg qd.Monitor labs. [id number] Shantelle Henderson MD [address] [address] 01/02/2024 17:02:34 01/06/2024 10:29:53 Metabolic encephalopathy 58202868 G93.41 With numerous med changes inpt due to concern about seratonin syndrome.S he continues to be confused at times and with some agitation as detailed in rehab notes.Cont inue topiramate 50 mg BID.Will likely need some of other meds restarted also, but will await psych consult.Mo nitor mood and behaviors. Cellulitis of left lower limb 7584863427 6362911 L03.116 Completed tx inpt.Monit or for recurrence . Insulin tr eated type 2 diabetes mellitus 099494769 E11.42 With neuropathy .Levemir stopped in hosp.BS have been <200 since return.Con tinue metformin 500 mg qd and SSIContinu e Lyrica 100 mg TID and topiramate 50 mg BID for neuropathy .Continue Carb control dietMonito r fingerstic ks TID and restart Levemir if needed. Open fract ure of left tibia 9994061017 6347116 S82.292B Recovering from ORIF for open fx of left tib-fib continuing with NWB to LLEMay be able to PWB per 11/24 note, but contradict ed in 12/09 note.Will await f/u on 01/05 for clarificat ion.Pt is not always compliant with NWB and has been resistant to rehab tx this week.William nue APAP 650 mg q 4 hrs prn and oxycodone 5 mg q 4 hrs prn. Depressive disorder 3548 9007 F33.8 As above. Gastroesop hageal reflux disease without esophagitis 576353904 K21.9 No current sxs.Contin ue famotidine 20 mg qd and pantoprazo le 40 mg qd.Monitor GI sx. Hypertensive disorder 38 115657 I10 Remains in good control on losartan 50 mg qdMonitor BP and labs. Hyperlipidemia 31126262 E78.49 Continue atorvastat in 20 mg qdMonitor labs yearly. Migraine 20839779 G43.80 9 Continue sumatripta n 100 mg qd prn.Also on topiramate 50 mg BID and riboflavin 400 mg qdMonitor sxs Chronic pain 98694619 G8 9.29 As above and tizanidine 4 mg q 8 hrs prnMonitor sxs Chronic constipation 236 332547 K59.09 Continue bowel meds as ordered.Mo nitor bowel function. Anemia 774145182 D64.89 StableCont inue FeSO4 325 mg qd.Monitor labs. Chronic ob structive pulmonary disease 82536710 J44.89 No current sxs.Contin ue Breo ellipta 200/25 mcg qd, Incruse ellipta 62.5 mcg qd, cetirizine 10 mg qd, fluticason e nasal spray 2 sprays in each nostril qd, and albuterol MDI 2 puffs q 6 hrs prn.Monito r resp. status Itching 174491675 L29.9 Already on cetirizine 10 mg qd, will add diphenhydr amine 25 mg q 4 hrs prn.Monito r for oversedati on or urinary retention. [id number] SPIKE CARRILLO NP [address] [place] [address] 01/09/2024 13:16:26 01/15/2024 11:32:24 Metabolic encephalopathy 56485364 G93.41 With numerous med changes inpt due to concern about seratonin syndrome.S he continues to be confused at times and with some agitation as detailed in rehab notes but overall mood is pleasant and cooperativ e.Continue topiramate 50 mg BID.Will likely need some of other meds restarted also, but will await psych consult.Mo nitor mood and behaviors. Cellulitis of left lower limb 1386019702 2498960 L03.116 Completed tx inpt.Monit or for recurrence . Insulin tr eated type 2 diabetes mellitus 351614142 E11.42 With neuropathy .Levemir stopped in hosp.BS have been <200 since return.Con tinue metformin 500 mg qd and SSIContinu e Lyrica 100 mg TID and topiramate 50 mg BID for neuropathy .Continue Carb control dietMonito r fingerstic ks TID and restart Levemir if needed. Open fract ure of left tibia 9337058230 4627564 S82.292B Recovering from ORIF for open fx of left tib-fib continuing with NWB to LLESeen by Ortho 01/05, now WBAT with walker, and ok to shower with tub bench without boot.Next f/u 10/7Contin ue APAP 650 mg q 4 hrs prn pain Depressive disorder 3548 9007 F33.8 As above.Refe rred to Psych for continued mgmt. Gastroesop hageal reflux disease without esophagitis 976728336 K21.9 No current sxs.Contin ue famotidine 20 mg qd and pantoprazo le 40 mg qd.Monitor GI sx. Hypertensive disorder 38 710653 I10 Remains in good control on losartan 50 mg qdMonitor BP and labs. Hyperlipidemia 57354737 E78.49 Continue atorvastat in 20 mg qdMonitor labs yearly. Migraine 27148958 G43.80 9 Continue sumatripta n 100 mg qd prn.Also on topiramate 50 mg BID and riboflavin 400 mg qdMonitor sxs Chronic pain 72536661 G8 9.29 As above and tizanidine 4 mg q 8 hrs prnMonitor sxs Chronic constipation 236 881592 K59.09 Continue bowel meds as ordered.Mo nitor bowel function. Chronic ob structive pulmonary disease 01242529 J44.89 No current sxs.Contin ue Breo ellipta 200/25 mcg qd, Incruse ellipta 62.5 mcg qd, cetirizine 10 mg qd, fluticason e nasal spray 2 sprays in each nostril qd, and albuterol MDI 2 puffs q 6 hrs prn.Monito r resp. status Anemia 615533857 D64.89 StableCont inue FeSO4 325 mg qd.Monitor labs. Itching 867085346 L29.9 Already on cetirizine 10 mg qd, will add diphenhydr amine 25 mg q 4 hrs prn.Monito r for oversedati on or urinary retention. [id number] Juliet Whittaker NP [address] [address] 01/15/2024 11:02:23 01/17/2024 13:48:19 Metabolic encephalopathy 62655012 G93.41 With numerous med changes inpt due to concern about seratonin syndrome.d c'd buproprion , duloxetine , trazodone, cymbalta and and wellbutrin until follow up with outpt. psych.She continues to be confused at times and with some agitation as detailed in rehab notes but overall mood is pleasant and cooperativ e today.Cont inuetopira mate 50 mg BID.lyrica resumed 100 mg po tidWill likely need some of other meds restarted also, but will await psych consult outptMonit or mood and behaviors outpt and wtih pcp Cellulitis of left lower limb 6083978788 8032727 L03.116 Completed tx inpt.and resolvedMo nitor for recurrence outpt with pcp Insulin tr eated type 2 diabetes mellitus 429917349 E11.42 With neuropathy .Levemir stopped in hosp.BS have been <200 since return.Con tinuemetfo rmin 500 mg bidLyrica 100 mg TIDtopiram ate 50 mg BID for neuropathy .Continue Carb control dietMonito r fingerstic ks TID and restart Levemir if needed. Open fract ure of left tibia 0977733268 9092437 S82.292B Recovering from ORIF for open fx of left tib-fib continuing with NWB to LLESeen by Ortho 01/05, now WBAT with walker, and ok to shower with tub bench without boot.William nueAPAP 650 mg q 4 hrs prn painoxycod one 5mg po bid prnNext f/u 02/16 outpt with ortho Depressive disorder 3548 9007 F33.8 As above.star brit on melatonin 3 mg po qhs hereReferr ed to Psych outpt for continued mgmt. Gastroesop hageal reflux disease without esophagitis 952902669 K21.9 No current sxs.Contin uefamotidi ne 20 mg qdpantopra zole 40 mg qd.Monitor GI sx. outpt with pcp Hypertensive disorder 38 686493 I10 Remains in good control and labile at timescontl osartan 50 mg qdMonitor BP and labs outpt Hyperlipidemia 45231806 E78.49 Continueat orvastatin 20 mg qdMonitor labs oupt with pcp Migraine 58669210 G43.80 9 Continuesu matriptan 100 mg qd prn.topira mate 50 mg BIDribofla francia 400 mg qdMonitor sxs outpt with pcp Chronic pain 86743114 G8 9.29 As above and tizanidine 4 mg q 8 hrs prnMonitor sxs outpt with pcp Chronic constipation 236 223972 K59.09 Continue bowel meds as ordered.Mo nitor bowel function outpt with pcp Chronic ob structive pulmonary disease 55084259 J44.89 No current sxs.Contin ueBreo ellipta 200/25 mcg qd, Incruse ellipta 62.5 mcg qd, cetirizine 10 mg qd, fluticason e nasal spray 2 sprays in each nostril qd, and albuterol MDI 2 puffs q 6 hrs prn.Monito r resp. status with pcp outpt Anemia 060584051 D64.89 StableCont inue FeSO4 325 mg qd.Monitor labs outpt with pcp Health Concerns Section Related Observation LastModified by Organization Detai ls LastModified Time None Recorded Concern Status LastModified by Organization Details LastModified Time None Recorded Advance Directives Directive Y: Payers Encounter Date Sequence Insurance Name Policy Number Policy Mantilla Covered Member ID Mantilla Member ID Guarantor Name 12/21/2023 1 [place] Louisa Ollie [id number] Louisa Ollie 12/31/2023 1 [place] Louisa Ollie [id number] Louisa Ollie 01/02/2024 1 [place] Louisa Ollie [id number] Louisa Ollie 01/09/2024 1 [place] Louisa Ollie [id number] Louisa Ollie 01/15/2024 1 [place] Louisa Ollie [id number] Louisa Ollie Notes Date Note Type Note Provider Name and Address Organization Details Recorded Time 4 text/html Patient is a 63 yo female resident seen for acute rounding with concerns for increased confusion. Patient normally A and O x 3 now orients to person only. Is correct with month but year is 19__. Daughter is present and helps with hx. Patient was admit with open left tib fx with dressing in place. Dressings taken down with erythema at site of lower wound Ethan Lepe MD [address] [facility], [address], [place], [address], [place] 12/21/2023 16:44:18 4 text/html Louisa is seen today for readmission.She is a 63 yo lady, here at [facility] for rehab due to a left tibial fx, s/p ORIF. She was sent to [facility] 12/21/23 due to altered MS.Work up revealed acute metabolic encephalopathy, LLE cellulitis and sepsis.Initially treated with Vanco, ceftriaxone, and ampicillin. Seen by ID, abx. switched to cefepime and doxycycline. Completed a total of 10 days of abx.Infectious work up otherwise negative (tick borne diseases, west nile virus, Hep C, HIV, CSF analysis, BC, UA CXR).Seen by Psych, initial concern of serotonin syndrome. Buproprion, duloxetine, trazodone, and pregabalin held. Recommended restarting pregabalin upon discharge and continuing topamax; stopping trazodone, and holding cymbalta and and wellbutrin until follow up with outpt. Psych. Continued to be encephalopathic upon discharge.Levemir insulin held in hosp., covered with SSI, stayed mostly euglycemic. Recommended to continue glucophage and SSI upon discharge.CAD, GERD, COPD, migraine - home meds continued. She returned from [facility] 12/31/23 for continued care and rehab.Upon exam, Louisa is up in her w/c, self propelling in the halls. Alert, pleasant, no agitation or behaviors. Appropriate with conversation. She said her LLE still hurts, trying to use tylenol only to manage pain. Wearing walking boot, compliant. Otherwise she is feeling ok. PMH: HTN, AODM, COPD, chronic pain, depression, insomnia, GERD, HLD, migraine, smoker, s/p bilateral TKRs, s/p ORIF left tib-fib 11/2023, recurrent fevers of unknown origin, hx of transaminitis, and hx of delirium.MOLST: DNR, DNI SPIKE CARRILLO NP [address] [facility], [address], [place], [address], [facility] [employer] 12/31/2023 12:54:50 4 text/html This is a 63 yo woman who I am seeing today for a routine MD 60 day reeval rounding visit.She was just readmitted on 12/30 after a rehospitalization for sepsis with encephalopathy from LLE cellulitis.Txed with abxs for total of 10 days with improvement back to baseline.Most notably buproprion, duloxetine, trazodone, and pregabalin were held due to concern for seratonin syndrome, with temp up to 104.But recommended restarting pregabalin upon discharge and continuing topamax; stopping trazodone, and holding cymbalta and and wellbutrin until follow up with outpt. psych.Also long acting insulin was d/c'd and she was kept on only metformin and SSI with generally good control. Levemir was not restarted on d/c. She was originally admitted on 11/12 after an ORIF for an open left tib-fib fx.She has progressed with rehab, there is a handwritten ortho note from 11/24 saying pt may PWB with boot on, but then note form 12/09 says strict NWB, so very confusing.She continues to have confusion and paranoia.Daughter is trying to get services and equipment set up for d/c home in the near future. I see her with a chilean speaking staff member.Tonight she is up in the dining room. She is pleasant and cooperative. She is able to tell me about the hospital stay, getting abxs and being very confused and yelling at people. She says her leg hardly hurts at all.Her main c/o is itching which she tends to get in the spring and fall. She has gotten shots for this in the past. Usually takes benadryl at home. Her PMH includes HTN, AODM, COPD, chronic pain, depression, insomnia, GERD, HLD, migraine, smoker, s/p bilateral TKRs, s/p ORIF left tib-fib 11/2023, recurrent fevers of unknown origin, hx of transaminitis, and hx of delirium. Shantelle Henderson MD [address] [place] [address], [address], [place], [address], [employer] 01/02/2024 20:37:01 4 text/html Louisa is seen today for an acute visit. 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 psych.Also long acting insulin was d/c'd and she was kept on only metformin and SSI with generally good control. Levemir was not restarted on d/c. She was originally admitted on 11/12 after an ORIF for an open left tib-fib fx.She has progressed with rehab, there is a handwritten ortho note from 11/24 saying pt may PWB with boot on, but then note form 12/09 says strict NWB, so very confusing.She continues to have confusion and paranoia.Daughter is trying to get services and equipment set up for d/c home in the near future. Upon exam, Louisa is up in her w/c, self propelling in the halls. Mood bright, animated. She says she is feeling good, only complaint is a little leg pain today, APAP helps.Appetite goodBS in 100s, remains off insulin.VSS, BP occ. on higher side of nl.Labs stable.Continues to work with OT.Seen by Ortho 01/05 - now WBAT with walker, may shower with bench without boot. Follow up 02/17/24. Her PMH includes HTN, AODM, COPD, chronic pain, depression, insomnia, GERD, HLD, migraine, smoker, s/p bilateral TKRs, s/p ORIF left tib-fib 11/2023, recurrent fevers of unknown origin, hx of transaminitis, and hx of delirium. SPIKE CARRILLO, LANCE [address] [facility], [address], [place], [address], [facility] [employer] 01/09/2024 13:33:32 4 text/html Louisa is a 62 yo lady admitted on 11/12 to [facility] from [facility] for continued care and rehab after a brief hosp. related to a fall with left tibial fx. Her PMH includes HTN, AODM, COPD, chronic pain, depression, insomnia, GERD, HLD, migraine, smoker, s/p bilateral TKRs, s/p ORIF left tib-fib 11/2023, recurrent fevers of unknown origin, hx of transaminitis, and hx of delirium. She initially presented to [facility] 11/10/23 after falling at home with residual LLE pain. Work up revealed an open left tibial fracture. Underwent ORIF by Dr. Meadows. Tolerated the procedure well. Currently NWB, needs Ortho f/u 11/24/ To complete 10 days of abx. prophylaxis. for open fracture. Pain managed with APAP and oxycodone. Lovenox started for AC. Per summary her hospital stay complicated by:Urinary retention - failed a voiding trial, kenny replaced and started flomax. Rec. to try voiding trial when more mobile.Delirium - improved with pain mgmt., tx. of fx. and urinary retention. Also with some concern of mild underlying cognitive impairment.DM - managed with lantus and SSI.Azotemia - mild, stable, monitoredTransaminitis - resolvedDaily fevers - chronic, has had work up in past. BC neg. x 2 resolved with abx. 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 psych.Also long acting insulin was d/c'd and she was kept on only metformin daily and SSI with generally good control. Levemir was not restarted on d/c. While here at [facility]:She was last seen by Ortho 01/05 with recommendations now WBAT with walker, may shower with bench without boot. Follow up 02/17/24. She has had labile mood while here and often changes her mind about treatment and plans during her stay here. She states she is followed outpt for this. She has been using oxycodone approx 1-2 times per day which is equivalent to her home dose of percocet which she reports she has at home, which was d/c'd. Will dc with remainder of oxycodone approximately 20 tablets. She was seen by school psychology professor here and recommends 3 mg po qhs, will start here. BS stable lately in the 100s, remains off insulin.BP occ. on higher side of normal, very labile.Labs stable lately as written below.Continues to work with therapy while here and getting stronger with improved balance daily. On exam, her mood is pleasant, calm, and cooperative today. She takes off her walking boot without difficulty and her pain is controlled. She is excited to go home soon. Her left ankle and anterior tib/fib is healing, wound closed and well approx and no s/s of infection. Juliet Whittaker NP [address] [facility], [address], [place], [address], [facility] [employer] 01/15/2024 11:54:12 OBGyn Episode No OBEpisode recorded.
--- OUTSIDE RECORDS SUMMARY | 2024-07-03 08:55 | XMS_ITS | Encounter Summary ---
Author Organization [employer] Address [address] [facility] 7t [place] [address] Care Team Providers Care Forest Fire Warden Name Role Phone Name, Henry BARTLETT Primary Care Provider [phone] Reason for Visit * Reason Onset Date Comments FYI 12/17/2023 Encounter Details Date Type Department Care Team ([facility] st Contact Info) Description 12/17/[address] [facility] [address] [place], [place] [phone] Name, MD Henry [address] [place] [address] FYI Social History Tobacco Use Types Packs/Day Years [...] encounter Miscellaneous Notes * Telephone Encounter - Renny Vasquez RN - 12/17/2023 3:27 PM EDT Meghan KNIGHT. Is already cancelled. * Telephone Encounter - Rocky Talamantes - 12/17/2023 9:38 AM EDT Tc from pt calling in regards to upcoming appt with Suni stating she is currently in Rehab for PT and OT due to foot injury and states cannot make it to upcoming appts at the moment. Rehab pt is being seen at is the [facility] ([address] [place] [address]) Rehab documented in this encounter Plan of Treatment Upcoming Encounters Date Type Department Care Team ([facility] st Contact Info) Description 07/29/2024 10:45 AM EDT Office Visit [facility] [address] [place] [address] Name, MD Henry [address] [place] [address] 09/11/2024 9:[address] [facility] [address] [place] [address] Suni Rodriguez RN 10/01/2024 10:00 AM EDT Office Visit [facility] ADULT DENTAL [address] [place] [address] Clarisse Bar [address] [place], [place] [phone] documented as of this encounter Visit Diagnoses Not on filedocumented in this encounter Additional Health Concerns Assessment Noted Time PHQ-9 Depression Total Score: 6 09/14/19 23 9:53 AM EDT documented as of this encounter Care Teams Forest Fire Warden Relationship Specialty Start Date End Date Name, MD Henry [address] [place] [address] PCP - General Family Medicine 08/19/15 Finn Galindo Repairer Cylinder HeadsAircraft Electrical Systems Specialist 08/06/23 Mari Carrion Costuming SupervisorAircraft Electrical Systems Specialist 12/03/23 Chiquita 01/18/24 documented as of this encounter
--- OUTSIDE RECORDS SUMMARY | 2024-07-03 08:55 | XMS_ITS | Encounter Summary ---
Author Organization [employer] Address [address] [facility] 7t [place] [address] Care Team Providers Care Shank Taper Name Role Phone Name, Henry BARTLETT Primary Care Provider [phone] Reason for Visit * Reason Comments Med Refill Encounter Details Date Type Department Care Team ([facility] st Contact Info) Description 11/25/2023 Refill [facility] [address] [place], [place] [phone] Name, MD Henry [address] [place], [place] [phone] Iron deficiency anemia, unspecified iron deficiency anemia type Social History Tobacco Use Types Packs/Day Years [...] Description 07/29/2024 10:45 AM EDT Office Visit [facility] [address] [place] [address] Name, MD Henry [address] [place] [address] 09/11/2024 9:30 AM EDT Telemedicine [facility] [address] [place] [address] Suni Rodriguez RN 10/01/2024 10:00 AM EDT Office Visit [facility] ADULT DENTAL [address] [place] [address] Clarisse Bar [address] [place] [address] documented as of this encounter Visit Diagnoses Diagnosis Iron deficiency anemia, unspecified iron deficiency anemia type documented in this encounter Additional Health Concerns Assessment Noted Time PHQ-9 Depression Total Score: 6 09/14/19 23 9:53 AM EDT documented as of this encounter Care Teams Shank Taper Relationship Specialty Start Date End Date Name, MD Henry [address] [place] [address] PCP - General Family Medicine 08/19/15 Finn Galindo Bone Char Kiln TenderPsychiatric Attendant 08/06/23 Mari Carrion President & CeoPsychiatric Attendant 12/03/23 [id number] 01/18/24 documented as of this encounter
--- OUTSIDE RECORDS SUMMARY | 2024-07-03 08:55 | XMS_ITS | Encounter Summary ---
Author Organization [employer] Address [address] [facility] 7t [place] [address] Care Team Providers Care Woods Manager Name Role Phone Name, Henry BARTLETT Primary Care Provider [phone] Reason for Visit * Reason Onset Date Comments Results 10/22/2023 Encounter Details Date Type Department Care Team ([facility] st Contact Info) Description 10/22/2023 Telephone [facility] [address] [place], [place] [phone] Name, MD Henry [address] [place] [address] Results Social History Tobacco Use Types Packs/Day Years [...] encounter Miscellaneous Notes * Telephone Encounter - Delroy Ortega - 10/22/2023 2:37 PM EDT TC from pt requesting call back regarding Results. Type of results: Lab and Urine Date when done: 10/15 Facility: [facility] documented in this encounter Plan of Treatment Upcoming Encounters Date Type Department Care Team (Late st Contact Info) Description 07/29/2024 10:45 AM EDT Office Visit [facility] MED[facility] [address] [place] [address] NameHenry MD [address] [place] [address] 09/11/2024 9:30 AM EDT Telemedicine [facility] [address] [place] [address] Suni Rodriguez RN 10/01/2024 10:00 AM EDT Office Visit [facility] ADULT DENTAL [address] [place] [address] Clarisse Bar [address] [place] [address] documented as of this encounter Visit Diagnoses Not on filedocumented in this encounter Additional Health Concerns Assessment Noted Time PHQ-9 Depression Total Score: 6 09/14/19 23 9:53 AM EDT documented as of this encounter Care Teams Woods Manager Relationship Specialty Start Date End Date Name, MD Henry [address] [place] [address] PCP - General Family Medicine 08/19/15 Finn Galindo Clinical Trials AssistantRoping Machine Tender 08/06/23 Mari Carrion Bandmill OperatorRoping Machine Tender 12/03/23 Chiquita 01/18/24 documented as of this encounter
--- OUTSIDE RECORDS SUMMARY | 2024-07-03 08:55 | XMS_ITS | Encounter Summary ---
Author Organization [employer] Address [address] [facility] 7t [place] [address] Care Team Providers Care Division Officer Weapons Department Name Role Phone Name, Henry BARTLETT Primary Care Provider [phone] Encounter Details Date Type Department Care Team (Late Contact Info) Description 11/01/2022 Orders Only [facility] MED[facility]INE [address] [place] [address] Haley Gardner LPN Social History Tobacco Use Types Packs/Day Years Used Date Smoking Tobacco: Every Day Cigarettes Smokeless Tobacco: Current Depression Answer Date Recorded Patient Health Questionnaire-9 Score 6 09/13/2022 Depression Answer Date Recorded Patient Health Questionnaire-2 [...] Description 07/29/2024 10:45 AM EDT Office Visit [facility] [address] [place] [address] Name, MD Henry [address] [place] [address] 09/11/2024 9:30 AM EDT Telemedicine [facility] [address] [place] [address] Suni Rodriguez RN 10/01/2024 10:00 AM EDT Office Visit [facility] ADULT DENTAL [address] [place] [address] Clarisse Bar [address] [place], [place] [phone] documented as of this encounter Visit Diagnoses Not on filedocumented in this encounter Additional Health Concerns Assessment Noted Time PHQ-9 Depression Total Score: 6 09/14/19 23 9:53 AM EDT documented as of this encounter Care Teams Division Officer Weapons Department Relationship Specialty Start Date End Date Name, MD Henry [address] [place] [address] PCP - General Family Medicine 08/19/15 Finn Galindo Bone Cooking OperatorFarmworker Animal 08/06/23 Mari Carrion Underwriting Operations ManagerFarmworker Animal 12/03/23 Chiquita 01/18/24 documented as of this encounter
--- OUTSIDE RECORDS SUMMARY | 2024-07-03 08:55 | XMS_ITS | Encounter Summary ---
Author Organization [employer] Address [address] [facility] 7t [place] [address] Care Team Providers Care Housekeeping Room Inspector Name Role Phone Name, Henry BARTLETT Primary Care Provider Reason for Visit * Reason Comments Med Refill Encounter Details Date Type Department Care Team (Late st Contact Info) Description 09/17/2022 Refill [facility] MEDICINE [address] [place], [place] [phone] Name, MD Henry [address] [place] [address] Social History Tobacco Use Types Packs/Day Years [...] was confirmed or suspected to have Coronavirus/COVID-19? No / Unsure 09/13/2022 9:38 AM EDT documented as of this encounter Plan of Treatment Upcoming Encounters Date Type Department Care Team (Late st Contact Info) Description 07/29/2024 10:45 AM EDT Office Visit [facility] MEDICINE [address] [place] [address] Name, MD Henry [address] [place] [address] 09/11/2024 9:30 AM EDT Telemedicine [facility] MEDICINE [address] [place] [address] Suni Rodriguez RN 10/01/2024 10:00 AM EDT Office Visit [facility] ADULT DENTAL [address] [place] [address] Clarisse Bar [address] [place] [address] documented as of this encounter Visit Diagnoses Not on filedocumented in this encounter Additional Health Concerns Assessment Noted Time PHQ-9 Depression Total Score: 6 09/14/19 23 9:53 AM EDT documented as of this encounter Care Teams Housekeeping Room Inspector Relationship Specialty Start Date End Date Name, MD Henry [address] [place] [address] PCP - General Family Medicine 08/19/15 Finn Galindo Front Counter AttendantYard Hostler 08/06/23 Mari Carrion Forming Press OperatorYard Hostler 12/03/23 Chiquita 01/18/24 documented as of this encounter
--- OUTSIDE RECORDS SUMMARY | 2024-07-03 08:55 | XMS_ITS | Encounter Summary ---
Author Organization [employer] Address [address] [facility] 7t [place] [address] Care Team Providers Care Binder Fixer Name Role Phone Name, Henry BARTLETT Primary Care Provider [phone] Encounter Details Date Type Department Care Team (Late st Contact Info) Description 10/23/[address] [address] Henry Bernardo MD [address] [place] [address] Social History Tobacco Use Types Packs/Day Years [...] Description 07/29/2024 10:45 AM EDT Office Visit [address] [phone] Henry Bernardo MD [address] [place] [address] 09/11/2024 9:30 AM EDT Telemedicine [address] [place] [address] Suni Rodriguez RN 10/01/2024 10:00 AM EDT Office Visit [facility] ADULT DENTAL [address] [place] [address] Nicholas Bararis [address] [place] [address] documented as of this encounter Procedures Procedure Name Priority Date/Time Associated Diagnosis Comments COLONOSCOPY Routine 04/12/2020 10:05 AM EST documented in this encounter Results * Hm Colonoscopy (04/12/2020 10:05 AM EST) Colonoscopy Normal Normal Narrative Amina Stroud - 04/12/2020 10:05 AM EST Recommended 5 year follow up ([facility] [place] [place] us Historical Provider HEALTH MAINTENANCE Final Result documented in this encounter Visit Diagnoses Not on filedocumented in this encounter Additional Health Concerns Assessment Noted Time PHQ-9 Depression Total Score: 6 09/14/19 23 9:53 AM EDT documented as of this encounter Care Teams Binder Fixer Relationship Specialty Start Date End Date Name, MD Henry [address] [place] [address] PCP - General Family Medicine 08/19/15 Finn Galindo ApiculturistEducational Administration Teacher 08/06/23 Mari Carrion AircrewmanEducational Administration Teacher 12/03/23 Chiquita 01/18/24 documented as of this encounter
--- OUTSIDE RECORDS SUMMARY | 2024-07-03 08:55 | XMS_ITS | Encounter Summary ---
Author Organization [employer] Address [address] [facility] 7t [place] [address] Care Team Providers Care Riveter Helper Name Role Phone Name, Henry BARTLETT Primary Care Provider [phone] Reason for Visit * Reason Comments Med Refill Encounter Details Date Type Department Care Team (Late st Contact Info) Description 09/15/2022 Refill [facility] [address] [place] [address] [phone] Name, MD Henry [address] [place] [address] Chronic pain syndrome Social History Tobacco Use [...] Office Visit [facility] [address] [place] [address] Name, MD Henry [address] [place] [address] 09/11/2024 9:30 AM EDT Telemedicine [facility] [address] [place] [address] Suni Rodriguez, EDWARD 10/01/2024 10:00 AM EDT Office Visit [facility] ADULT DENTAL [address] [place] [address] DipikaClarisse [address] [place] [address] documented as of this encounter Visit Diagnoses Diagnosis Chronic pain syndrome documented in this encounter Additional Health Concerns Assessment Noted Time PHQ-9 Depression Total Score: 6 09/14/19 9:53 AM EDT documented as of this encounter Care Teams Riveter Helper Relationship Specialty Start Date End Date Name, MD Henry [address] [place] [address] PCP - General Family Medicine 08/19/15 Finn Galindo EntererCore Fitter 08/06/23 Mari Carrion Casting Wheel Operator HelperCore Fitter 12/03/23 Chiquita 01/18/24 documented as of this encounter
--- OUTSIDE RECORDS SUMMARY | 2024-07-03 08:55 | XMS_ITS | Encounter Summary ---
Author Organization [employer] Address [address] [facility] 7t [place] [address] Care Team Providers Care Executive Vice President Of Sales Name Role Phone NameHenry MD Primary Care Provider [phone] Reason for Visit * Reason Comments Med Refill Encounter Details Date Type Department Care Team (Late st Contact Info) Description 12/31/2022 Refill [facility] [address] [place] [address] [phone] NameHenry MD [address] [place] [phone] Social History Tobacco Use Types Packs/Day Years [...] Description 07/29/2024 10:45 AM EDT Office Visit [facility] [address] [place] [address] [phone] Henry Bernardo MD [address] [place] [address] 09/11/2024 9:30 AM EDT Telemedicine [facility] [address] [place] [address] Suni Rodriguez RN 10/01/2024 10:00 AM EDT Office Visit [facility] ADULT DENTAL [address] [place] [address] Clarisse Bar [address] [place] [address] documented as of this encounter Visit Diagnoses Not on filedocumented in this encounter Additional Health Concerns Assessment Noted Time PHQ-9 Depression Total Score: 6 09/14/19 23 9:53 AM EDT documented as of this encounter Care Teams Executive Vice President Of Sales Relationship Specialty Start Date End Date Name, MD Henry [address] [place] [address] PCP - General Family Medicine 08/19/15 Finn Galindo Learning SpecialistDirector Cpg 08/06/23 Mari Carrion Track HelperDirector Cpg 12/03/23 Chiquita 01/18/24 documented as of this encounter
--- OUTSIDE RECORDS SUMMARY | 2024-07-03 08:55 | XMS_ITS | Encounter Summary ---
Author Organization [employer] Address 75 [facility] 7t [place] [address] Care Team Providers Care Shipping Support Clerk Name Role Phone Name, Henry BARTLETT Primary Care Provider [phone] Reason for Visit * Reason Onset Date Comments FYI 12/02/2023 Encounter Details Date Type Department Care Team ([facility] st Contact Info) Description 12/02/2023 Telephone [facility] [address] [place], [place] [phone] Name, MD Henry [address] [place] [address] FYI Social History Tobacco Use Types Packs/Day [...] * Telephone Encounter - Delroy Ortega - 12/02/2023 2:47 PM EDT Tc from the patients spouse calling to report the reason the patient did not attend last appt is due to the patient having a foot injury and is currently in a rehab documented in this encounter Plan of Treatment Upcoming Encounters Date Type Department Care Team (Late st Contact Info) Description 07/29/2024 10:45 AM EDT Office Visit [facility] [address] [place] [address] Henry Bernardo MD [address] [place] [address] 09/11/2024 9:30 AM EDT Telemedicine [facility] [address] [place] [address] Suni Rodriguez RN 10/01/2024 10:00 AM EDT Office Visit [facility] ADULT DENTAL [address] [place] [address] Clarisse Bar [address] [place] [address] documented as of this encounter Visit Diagnoses Not on filedocumented in this encounter Additional Health Concerns Assessment Noted Time PHQ-9 Depression Total Score: 6 09/14/19 23 9:53 AM EDT documented as of this encounter Care Teams Shipping Support Clerk Relationship Specialty Start Date End Date Henry Bernardo MD [address] [place] [address] PCP - General Family Medicine 08/19/15 Finn Galindo Skills AuditorGeneral Pediatrician 08/06/23 Mari Carrion Sales DirectorGeneral Pediatrician 12/03/23 Chiquita 01/18/24 documented as of this encounter
--- OUTSIDE RECORDS SUMMARY | 2024-07-03 08:55 | XMS_ITS | Encounter Summary ---
Author Organization [employer] Address [address] [facility] 7t [place] [address] Care Team Providers Care E Business Project Manager Name Role Phone Name, Henry BARTLETT Primary Care Provider [phone] Reason for Visit * Reason Onset Date Comments Medical Question 09/18/2022 Encounter Details Date Type Department Care Team ([facility] st Contact Info) Description 09/18/2022 Telephone [facility] [address] [place], [place] [phone] Name, MD Henry [address] [place] [address] Medical Question Social History Tobacco Use Types Packs/Day Years [...] encounter Miscellaneous Notes * Telephone Encounter - Mannymaryam Agmeliza Wheat - 09/18/2022 11:16 AM EDT Tc from pt requesting a call from a nurse in regards for heart monitor. Pt states that Cardiologistgave her a call and advise that pt has a weak heart and pt would like to see if possible to get a heart monitor Please contact pt at [phone] Yi Speaker documented in this encounter Plan of Treatment Upcoming Encounters Date Type Department Care Team (Late st Contact Info) Description 07/29/2024 10:45 AM EDT Office Visit [facility] [address] [place] [address] Name, MD Henry [address] [place] [address] 09/11/2024 9:30 AM EDT Telemedicine [facility] [address] [place] [address] Suni Rodriguez RN 10/01/2024 10:00 AM EDT Office Visit [facility] ADULT DENTAL [address] [place] [address] Clarisse Bar [address] [place] [address] documented as of this encounter Visit Diagnoses Not on filedocumented in this encounter Additional Health Concerns Assessment Noted Time PHQ-9 Depression Total Score: 6 09/14/19 23 9:53 AM EDT documented as of this encounter Care Teams E Business Project Manager Relationship Specialty Start Date End Date Name, MD Henry [address] [place] [address] PCP - General Family Medicine 08/19/15 Finn Galindo Technical Sales DirectorRegional Refrigerated Cdl Truck Driver 08/06/23 Mari Carrion Emergency Department CoordinatorRegional Refrigerated Cdl Truck Driver 12/03/23 Chiquita 01/18/24 documented as of this encounter
--- OUTSIDE RECORDS SUMMARY | 2024-07-03 08:55 | XMS_ITS | Encounter Summary ---
Author Organization [employer] Address 75 [facility] 7t [place] [address] Care Team Providers Care Consumer Analyst Name Role Phone Name, Henry BARTLETT Primary Care Provider [phone] Reason for Visit * Reason Onset Date Comments Medication Question 01/01/2023 pregabalin ( Lyrica) 50 MG capsule Encounter Details Date Type Department Care Team ([facility] st Contact Info) Description 01/01/2023 Telephone [facility] [address] [place], [place] [phone] Name, MD Henry [address] [place], [place] [phone] Medication Question (pregabalin (Lyrica) 50 MG capsule//) Social History Tobacco Use Types Packs/Day Years [...] encounter Miscellaneous Notes * Telephone Encounter - Pattie Preston RN - 01/01/2023 2:47 PM EDT Please review message below. Pt is requesting to go back to 100mg dose. Pt is scheduled with you tomorrow and can discuss further with you. * Telephone Encounter - Naima Zabala - 01/01/2023 10:04 AM EDT Tc from patient requesting a call back, in regards to medication pregabalin (Lyrica) 50 MG capsule.Patient states medication was lowered from 100 mg to 50 mg and is requesting for dose to go back to100 mh. Patient speaks marshallese. documented in this encounter Plan of Treatment Upcoming Encounters Date Type Department Care Team (Late st Contact Info) Description 07/29/2024 10:45 AM EDT Office Visit [facility] [address] [place] [address] Name, MD Henry [address] [place] [address] 09/11/2024 9:30 AM EDT Telemedicine [facility] [address] [place] [address] Suni Rodriguez RN 10/01/2024 10:00 AM EDT Office Visit [facility] ADULT DENTAL [address] [place] [address] Clarisse Bar [address] [place] [address] documented as of this encounter Visit Diagnoses Not on filedocumented in this encounter Additional Health Concerns Assessment Noted Time PHQ-9 Depression Total Score: 6 09/14/19 23 9:53 AM EDT documented as of this encounter Care Teams Consumer Analyst Relationship Specialty Start Date End Date Henry Bernardo MD [address] [place] [address] PCP - General Family Medicine 08/19/15 Finn Galindo Bed Machine OperatorOven Dauber 08/06/23 Mari Carrion Biomedical Field Service EngineerOven Dauber 12/03/23 Chiquita 01/18/24 documented as of this encounter
--- OUTSIDE RECORDS SUMMARY | 2024-07-03 08:55 | XMS_ITS | Encounter Summary ---
Author Organization [employer] Address 75 [facility] 7t [place] [address] Care Team Providers Care Building Admin Name Role Phone Name, Henry BARTLETT Primary Care Provider [phone] Reason for Visit * Reason Onset Date Comments Hospital Follow-up 01/10/2024 Encounter Details Date Type Department Care Team ([facility] st Contact Info) Description 01/10/[address] [facility] [address] [place], [place] [phone] Name, MD Henry [address] [place] [address] Hospital Follow-up Social History Tobacco Use Types Packs/Day Years [...] encounter Miscellaneous Notes * Telephone Encounter - Rocky Talamantes - 01/15/2024 11:01 AM EDT Tc from Melissa regarding message prior stating pt is in currently in rehab and unable to take the call so Melissa is requesting you contact her directly. Please contact Melissa at [phone]. * Telephone Encounter - Ethan Suazo - 01/10/2024 4:16 PM EDT TC from Melissa ( daughter) stated pt will be discharging from [facility] after fall a few months ago . Discharge date : 01/15 documented in this encounter Plan of Treatment Upcoming Encounters Date Type Department Care Team (Late st Contact Info) Description 07/29/2024 10:45 AM EDT Office Visit [facility] [address] [place] [address] Name, MD Henry [address] [place] [address] 09/11/2024 9:30 AM EDT Telemedicine [facility] [address] [place] [address] Suni Rodriguez RN 10/01/2024 10:00 AM EDT Office Visit [facility] ADULT DENTAL [address] [place] [address] [phone] Clarisse Bar [address] [place] [address] documented as of this encounter Visit Diagnoses Not on filedocumented in this encounter Additional Health Concerns Assessment Noted Time PHQ-9 Depression Total Score: 6 09/14/19 23 9:53 AM EDT documented as of this encounter Care Teams Building Admin Relationship Specialty Start Date End Date Name, MD Henry [address] [place] [address] PCP - General Family Medicine 08/19/15 Finn Galindo Extractor FillerControls Designer 08/06/23 Mari Carrion Jewel Hole Rough OpenerControls Designer 12/03/23 Chiquita 01/18/24 documented as of this encounter
--- OUTSIDE RECORDS SUMMARY | 2024-07-03 08:56 | XMS_ITS | Encounter Summary ---
Author Organization [employer] Address 75 [facility] 7t [place] [address] Care Team Providers Care Account Manager B2B Name Role Phone Name, Henry BARTLETT Primary Care Provider [phone] Reason for Visit * Reason Onset Date Comments Recommend FOCUS PULLER Tele Tier 2 06/26/2024 Encounter Details Date Type Department Care Team ([facility] st Contact Info) Description 06/26/2024 Telephone [facility] [address] [place], [place] [phone] Suni Rodriguez, EDWARD Recommend FOCUS PULLER Tele Tier 2 Social History Tobacco Use Types Packs/Day Years Used Date Smoking Tobacco: Every Day Cigarettes Passive Smoke Exposure: Current Smokeless Tobacco: Current Alcohol Use Standard Drinks/Week Comments Never 0 (1 standard drink = 0.6 oz pur e alcohol) Depression Answer Date Recorded Patient Health Questionnaire-9 Score 6 09/13/2022 Housing Stability Answer Date Recorded What is your housing situation today? I have alekseychuckie conte 02/26/[address] you [...] encounter Miscellaneous Notes * Telephone Encounter - Suni Rodriguez RN - 06/26/2024 7:24 AM EST What FOCUS PULLER Tier would you like this patient to be? I recommend Tele Tier 2, please let me know if you agree or would rather patient be in another FOCUS PULLER Tier. Tier 1 = HIGH RISK, Monthly FOCUS PULLER visits Tier 2 = MODerate RISK, Q3 Month visits Tier 3 = LOW RISK = Q4-6 month visits documented in this encounter Plan of Treatment Upcoming Encounters Date Type Department Care Team (Late st Contact Info) Description 07/29/2024 10:45 AM EDT Office Visit [facility] [address] [place] [address] Henry Bernardo MD [address] [place] [address] 09/11/2024 9:30 AM EDT Telemedicine [facility] [address] [place] [address] Suni Rodriguez RN 10/01/2024 10:00 AM EDT Office Visit [facility] ADULT [facility] [address] [place] [address] Clarisse Bar [address] [place] [address] documented as of this encounter Visit Diagnoses Not on filedocumented in this encounter Additional Health Concerns Assessment Noted Time PHQ-9 Depression Total Score: 6 09/14/19 23 9:53 AM EDT documented as of this encounter Care Teams Account Manager B2B Relationship Specialty Start Date End Date Henry Bernardo MD [address] [place] [address] PCP - General Family Medicine 08/19/15 Finn Galindo Soda Dry House OperatorChild Development Consultant 08/06/23 Mari Carrion Risk Management ConsultantChild Development Consultant 12/03/23 Chiquita 01/18/24 documented as of this encounter
--- OUTSIDE RECORDS SUMMARY | 2024-07-03 08:56 | XMS_ITS ---
Author Organization [employer] Address [address] [facility] 7t [place] [address] Care Team Providers Care Business Law Professor Name Role Phone Name, Henry BARTLETT Primary Care Provider [phone] DIRECTOR OF FINANCE Status:Enrolled (Active) Start date:06/14/2022 Enrollment date:06/14/2022 Enrollment reason:Identified using pharmacy data Current support & services provided:Tier 4 (DIRECTOR OF FINANCE) Case Team Name Relationship Phone Suni Rodriguez RN Registered Nurse(Responsible Sta ff) Continued Care and Services Coordination
--- OUTSIDE RECORDS SUMMARY | 2024-07-03 08:56 | XMS_ITS | Encounter Summary ---
Author Organization [employer] Address 75 [facility] 7t [place] [address] Care Team Providers Care Wool Tamper Name Role Phone NameHenry MD Primary Care Provider [phone] Reason for Visit * Reason Comments Med Refill Encounter Details Date Type Department Care Team (Late st Contact Info) Description 02/08/2023 Refill [facility] [address] [place], [place] [phone] Henry Bernardo MD [address] [place] [address] Chronic pain syndrome Social History Tobacco Use [...] Encounters Date Type Department Care Team (Late Contact Info) Description 07/29/2024 10:45 AM EDT Office Visit [facility] [address] [place] [address] [phone] Henry Bernardo MD [address] [place] [address] 09/11/2024 9:30 AM EDT Telemedicine [facility] [address] [place] [address] Suni Rodriguez RN 10/01/2024 10:00 AM EDT Office Visit [facility] ADULT DENTAL [address] [place] [address] Clarisse Bar [address] [place] [address] documented as of this encounter Visit Diagnoses Diagnosis Chronic pain syndrome documented in this encounter Additional Health Concerns Assessment Noted Time PHQ-9 Depression Total Score: 6 09/14/19 9:53 AM EDT documented as of this encounter Care Teams Wool Tamper Relationship Specialty Start Date End Date Name, MD Henry [address] [place] [address] PCP - General Family Medicine 08/19/15 Finn Galindo Batch Still OperatorOvercoil Stepper 08/06/23 Mari Carrion Cable TenderOvercoil Stepper 12/03/23 Chiquita 01/18/24 documented as of this encounter
--- OUTSIDE RECORDS SUMMARY | 2024-07-03 08:56 | XMS_ITS | Encounter Summary ---
Author Organization [employer] Address 75 [facility] 7t [place] [address] Care Team Providers Care Pipeline Executive Name Role Phone Name, Henry BARTLETT Primary Care Provider [phone] Reason for Visit * Reason Onset Date Comments Med Refill 06/30/2024 Encounter Details Date Type Department Care Team (Late st Contact Info) Description 06/30/2024 Refill [facility] [address] [place], [place] [phone] Name, MD Henry [address] [place] [address] Diabetic polyneuropathy associated with type 2 diabetes mellitus (CMS/HCC) Social History Tobacco Use Types Packs/Day Years [...] encounter Miscellaneous Notes * Telephone Encounter - Darlyn Michelle LPN - 06/30/2024 11:59 AM EST SALES MANAGER checked on 06/30/24. Next appointment 07/29/24. documented in this encounter Plan of Treatment Upcoming Encounters Date Type Department Care Team (Late st Contact Info) Description 07/29/2024 10:45 AM EDT Office Visit [facility] [address] [place] [address] Name, MD Henry [address] [place] [address] 09/11/2024 9:30 AM EDT Telemedicine [facility] [address] [place] [address] Suni Rodriguez, RN 10/01/2024 10:00 AM EDT Office Visit [facility] ADULT DENTAL [address] [place] [address] Clarisse Bar [address] [place] [address] documented as of this encounter Visit Diagnoses Diagnosis Diabetic polyneuropathy associated with type 2 diabetes mellitus (CMS/HCC) documented in this encounter Additional Health Concerns Assessment Noted Time PHQ-9 Depression Total Score: 6 09/14/19 23 9:53 AM EDT documented as of this encounter Care Teams Pipeline Executive Relationship Specialty Start Date End Date Name, MD Henry [address] [place] [address] PCP - General Family Medicine 08/19/15 Finn Galindo Rap ArtistTrade Specialist 08/06/23 Mari Carrion InvestorTrade Specialist 12/03/23 Chiquita 01/18/24 documented as of this encounter
--- OUTSIDE RECORDS SUMMARY | 2024-07-03 08:56 | XMS_ITS | Clinical Summary ---
Author Organization [address] [place] [address] [place] [phone] Phone Care Team Providers Care Instructional Technology Instructor Name Role Phone Name, Henry BARTLETT Primary Care Provider [phone] Encounters Date Type Department Care Team Description 05/19/2024 8:08 AM EST - 05/19/2024 11:59 PM EST Hospital Encounter [facility] Ortho Xray [address] [place] [phone] Pain Discharge Disposition: Home or Self Care from Last 3 Months Immunizations Name Administration Dates Next Due [employer] SARS-CoV-2 COVID-19, mRNA, LNP-S, preservative free 02/28/2021,06/16/2020,05/26/2020 Surgical History Surgery Date Site/Laterality Comments KNEE ARTHROSCOPY PROCEDURE: AK ARTHROSCOPY AID TX SPINE&/FX KNEE W/O FIXJ HYSTERECTOMY PROCEDURE: HISTORICAL HYSTERECTOMY HERNIA REPAIR PROCEDURE: HISTORICAL HERNIA REPAIR/ING CHOLECYSTECTOMY PROCEDURE: HISTORICAL CHOLECYSTECTOMY ESOPHAGOGASTRODUODENOSCOPY 2002? PROCEDURE: AK ESOPHAGOGASTRODUODENOSCOPY TRANSORAL DIAGNOSTIC; COMMENT: h pylori gatritis? COLONOSCOPY 2004 PROCEDURE: AK COLONOSCOPY FLX DX W/COLLJ SPEC WHEN PFRMD; COMMENT: normal? (done for evaluation of rectal bleeding) ESOPHAGOGASTRODUODENOSCOPY 09/20/2009 PROCEDURE: AK EGD TRANSORAL BIOPSY SINGLE/MULTIPLE; COMMENT: Esophagus normal, bilious fluid in the stomach, antral gastritis-biopsy:mild reactive gastropathy (HPylori-), normal SB TOTAL KNEE ARTHROPLASTY PROCEDURE: HISTORICAL TOTAL KNEE REPLACE; COMMENT: both knees (2010 and 2009) SINUS SURGERY 2010 PROCEDURE: AK UNLISTED PROCEDURE ACCESSORY SINUSES; COMMENT: date approximate; chronic sinusitis. Medical History Medical History Date Comments Esophageal reflux DX:Esophageal reflux Historical Medical DX 09/27/08 DX:HTN Diabetes mellitus type 2 in obese 01/25/2010 DX:Diabetes mellitus type 2 in obese Allergic rhinitis 06/01/2010 DX:Allergic rh initis Asthma 09/27/2008 DX:Asthma Depression 09/27/2008 DX:Depression GERD (gastroesophageal reflux disease) 09/27/2008 DX:GERD (gastroesophageal reflux disease) Hepatitis C 09/27/2008 DX:Hepatitis C DJD (degenerative joint disease) 09/27/2008 DX:DJD (degenerative joint disease) Sacroiliac pain 2009 DX:Sacroiliac pa in Low back pain 2009 DX:Low back pain Radiculitis, lumbosacral 2009 DX:Radi culitis, lumbosacral Elevated rheumatoid factor 10/26/2008 DX:El evated rheumatoid factor Migraine 10/26/2008 DX:Migraine Obesity 09/27/2008 DX:Obesity SHANNAN (obstructive sleep apnea) DX :SHANNAN (obstructive sleep apnea) Family History Medical History Relation Name Comments Blindness Neg Hx Breast cancer Neg Hx Cataracts Neg Hx Glaucoma Neg Hx Macular degeneration Neg Hx Strabismus Neg Hx Relation Name Status Comments Brother drug use, AIDS Daughter 1 Alive Daughter 2 Alive Father Alive alcohol Mother Alive alcohol Son suicide Social History Tobacco Use Types Packs/Day Years Used Date Smoking Tobacco: Every Day Cigarettes Smokeless Tobacco: Current Alcohol Use Standard Drinks/Week Comments No 0 (1 standard drink = 0.6 oz pur e alcohol) Comments Unknown Sex and Gender Information Value Date Recorded Sex Assigned at Not on file Legal Sex Female 8:51 AM EST Gender Identity Not on file Sexual Orientation Not on file Obstetrics History Plan of Treatment Health Maintenance Due Date Last Done Comments Diabetes: Annual GFR (Glomerular Filtration Rate) 1959 Diabetes: Annual Foot Exam 11/27/1969 Diabetes: Annual Retina Eye Exam 11/27/1969 Cervical Cancer Screening: Pap Smear 11/27/1980 Zoster Vaccines (1 of 2) 11/27/2009 RSV Immunization Patients 60+ Years Old (1 - Risk 60-74 years 1-dose series) 2019 Colorectal Cancer Screening: Colonoscopy 04/15/2022 Hepatitis C Screening 04/15/2022 Social Influencers of Health Screening 04/15/2022 Diabetes: Annual Urine Albumin-Creatinine Ratio (uACR) 04/19/2022 Hypertension/CHF/CAD Annual BMP Blood Test 04/19/2022 Breast Cancer Screening 05/31/2023 05/31/2021 Depression Screening 09/14/2023 09/13/2022 COVID-19 Vaccine ( season) 2024 04/09/2023, 07/09/2022, 02/28/2021, Additional history exists Diabetes: Blood Sugar Control Test (HGBA1C) 07/27/2024 01/28/2024 Cholesterol Screening (Lipid Panel) 10/15/2028 10/16/2023 DTaP,Tdap,and Td Vaccines (4 - Td or Tdap) 06/24/2029 06/24/2019, 09/27/2008, 09/06/2006 Hepatitis A Vaccines Completed 04/23/2006, 04/24/20 Hepatitis B Vaccines Completed 08/27/2018, 01/22/2013, 06/16/2012, Additional history exists HIV Screening Completed 01/30/2021 Pneumococcal Vaccine: 50+ Years Completed 08/06/2023, 03/07/2008, 04/09/2005 Pneumococcal Vaccine: Pediatrics (0 to 5 Years) and At-Risk Patients (6 to 64 Years) Completed 08/06/2023, 03/07/2008, 04/09/2005 Influenza Vaccine Completed 01/28/2024, , 07/09/2022, Additional history exists HIB Vaccines Aged Out No longer eligi ble based on patient's age to complete this topic HPV Vaccines Aged Out No longer eligi ble based on patient's age to complete this topic IPV Vaccines Aged Out No longer eligi ble based on patient's age to complete this topic MMR Vaccines Aged Out No longer eligi ble based on patient's age to complete this topic Meningococcal ACWY Vaccine Aged Out N o longer eligible based on patient's age to complete this topic Meningococcal B Vacine Aged Out No lo nger eligible based on patient's age to complete this topic RSV Immunization Patients Under 20 months Aged Out No longer eligible based on patient's age to complete this topic Varicella Vaccines Aged Out No longer eligible based on patient's age to complete this topic Procedures Procedure Name Priority Date/Time Associated Diagnosis Comments XR TIBIA FIBULA 2 VIEWS LEFT Routine 05/19/2024 10:26 AM EST Pain from Last 3 Months Results * XR Tibia Fibula 2 Views Left (05/19/2024 10:26 AM EST) Narrative RIS PACS/VR - 05/19/2024 10:26 AM EST This order has been auto-finalized and does not contain a result. us Mauro Meyers MD IMG XR PROCEDURES Final Resul t RIS PACS/VR from Last 3 Months Insurance MEDICAID - [place] Advance Directives Documents on File Type Date Recorded Patient Iv Rn Expl anation Health Care Decision (hx) 12/04/2023 AD DONOVAN DIRECTIVE Health Care Decision (hx) 11/11/2023 AD DONOVAN DIRECTIVE Health Care Decision (hx) 11/11/2023 AD DONOVAN DIRECTIVE Health Care Decision (hx) 11/11/2023 AD DONOVAN DIRECTIVE Care Teams Instructional Technology Instructor Relationship Specialty Start Date End Date Name, MD Henry [address] [place] [address] PCP - General Internal Medicine 12/05/15
--- OUTSIDE RECORDS SUMMARY | 2024-07-03 08:56 | XMS_ITS | Encounter Summary ---
Author Organization [employer] Address [address] [facility] [address] [place] [address] Care Team Providers Care Mail Processor Name Role Phone Name, Henry BARTLETT Primary Care Provider [phone] Reason for Visit * Reason Onset Date Comments Med Refill 06/17/2024 Encounter Details Date Type Department Care Team (Late st Contact Info) Description 06/17/2024 Refill [facility] [address] [place], [place] [phone] Name, MD Henry [address] [place] [address] Chronic pain syndrome Social History Tobacco Use [...] encounter Miscellaneous Notes * Telephone Encounter - Star Hernandez - 06/17/2024 9:57 AM EST TC from pt requesting medication refill. Medications needing refill : oxyCODONE-acetaminophen (Percocet) 7.5-325 MG tablet To be sent to: [facility] - [place], [place] - [address] [place] [address] documented in this encounter Plan of Treatment Upcoming Encounters Date Type Department Care Team (Late st Contact Info) Description 07/29/2024 10:45 AM EDT Office Visit [facility] MED[facility] [address] [place] [phone] Name, MD Henry [address] [place] [phone] 09/11/2024 9:30 AM EDT Telemedicine [facility]INE [address] [place] [phone] Suni Rodriguez RN 10/01/2024 10:00 AM EDT Office Visit [facility] ADULT DENTAL [address] [place] [phone] Clarisse Bar [address] [place] [address] documented as of this encounter Visit Diagnoses Diagnosis Chronic pain syndrome documented in this encounter Additional Health Concerns Assessment Noted Time PHQ-9 Depression Total Score: 6 09/14/19 23 9:53 AM EDT documented as of this encounter Care Teams Mail Processor Relationship Specialty Start Date End Date Name, MD Henry [address] [place] [address] PCP - General Family Medicine 08/19/15 Finn Galindo Department ChairLining Brusher 08/06/23 Mari Carrion Information Technology Account ManagerLining Brusher 12/03/23 Chiquita 01/18/24 documented as of this encounter
--- OUTSIDE RECORDS SUMMARY | 2024-07-03 08:56 | XMS_ITS | Encounter Summary ---
Author Organization [employer] Address [address] [facility] 7t [place] [address] Care Team Providers Care Labview Programmer Name Role Phone Name, Henry BARTLETT Primary Care Provider Reason for Visit * Reason Comments Med Refill Encounter Details Date Type Department Care Team ([facility] st Contact Info) Description 04/30/2024 Refill [facility] MEDICINE [address] [place], [place] [phone] Yue Olsen, EXECUTIVE MARKETING ASSISTANT [address] [place], [place] [phone] COPD exacerbation (CMS/HCC) Social History Tobacco Use Types Packs/Day [...] Description 07/29/2024 10:45 AM EDT Office Visit [facility] MEDICINE [address] [place] [phone] Name, MD Henry [address] [place] [phone] 09/11/2024 9:30 AM EDT Telemedicine [facility] MEDICINE [address] [place] [phone] Suni Rodriguez RN 10/01/2024 10:00 AM EDT Office Visit [facility] ADULT DENTAL [address] [place] [phone] Clarisse Bar [address] [place] [address] documented as of this encounter Visit Diagnoses Diagnosis COPD exacerbation ([facility]) Obstructive chronic bronchitis with exacerbation documented in this encounter Additional Health Concerns Assessment Noted Time PHQ-9 Depression Total Score: 6 09/14/19 23 9:53 AM EDT documented as of this encounter Care Teams Labview Programmer Relationship Specialty Start Date End Date Name, MD Henry [address] [place] [phone] PCP - General Family Medicine 08/19/15 Finn Galindo Pulp PilerFeed Handler 08/06/23 Mari Carrion Band Machine OperatorFeed Handler 12/03/23 [id number] 01/18/24 documented as of this encounter
--- OUTSIDE RECORDS SUMMARY | 2024-07-03 08:56 | XMS_ITS | Encounter Summary ---
Author Organization [employer] Address [address] [facility] [address] [place] [address] Care Team Providers Care Java Oracle Developer Name Role Phone Name, Henry BARTLETT Primary Care Provider [phone] Reason for Visit * Reason Onset Date Comments Med Refill 06/11/2024 Encounter Details Date Type Department Care Team (Late st Contact Info) Description 06/11/2024 Refill [facility] [address] [place], [place] [phone] Name, MD Henry [address] [place] [address] Migraine without status migrainosus, not intractable, unspecified migraine type Social History Tobacco Use Types Packs/Day [...] 07/29/2024 10:45 AM EDT Office [address] [facility] MED[facility]INE [address] [place] [phone] Name, MD Henry [address] [place] [phone] 09/11/2024 9:[address] [facility] [address] [place] [phone] Suni Rodriguez RN 10/01/2024 10:00 AM EDT Office Visit [facility] ADULT DENTAL [address] [place] [phone] Clarisse Bar [address] [place] [address] documented as of this encounter Visit Diagnoses Diagnosis Migraine without status migrainosus, not intractable, unspecified migraine type documented in this encounter Additional Health Concerns Assessment Noted Time PHQ-9 Depression Total Score: 6 09/14/19 23 9:53 AM EDT documented as of this encounter Care Teams Java Oracle Developer Relationship Specialty Start Date End Date NameHenry MD [address] [place] [phone] PCP - General Family Medicine 08/19/15 Finn Galindo Well Treatment OffsiderBox Covering Machine Operator 08/06/23 Mari Carrion Ice Cream ServerBox Covering Machine Operator 12/03/23 [id number] 01/18/24 documented as of this encounter
--- OUTSIDE RECORDS SUMMARY | 2024-07-03 08:56 | XMS_ITS | Encounter Summary ---
Author Organization [employer] Address [address] [facility] 7[address] [place] [address] Care Team Providers Care Sap Sd Analyst Name Role Phone Name, Henry BARTLETT Primary Care Provider [phone] Encounter Details Date Type Department Care Team (Latest Contact Info) Description 06/26/2024 Travel Social History Tobacco Use Types Packs/Day Years [...] Description 07/29/2024 10:45 AM EDT Office Visit [facility] MEDICINE [address] [place] [address] NameHenry MD [address] [place] [address] 09/11/2024 9:30 AM EDT Telemedicine [facility] [address] [place] [address] Suni Rodriguez RN 10/01/2024 10:00 AM EDT Office Visit [facility] ADULT DENTAL [address] [place] [address] Clarisse Bar [address] [place] [address] documented as of this encounter Visit Diagnoses Not on filedocumented in this encounter Additional Health Concerns Assessment Noted Time PHQ-9 Depression Total Score: 6 09/14/19 23 9:53 AM EDT documented as of this encounter Care Teams Sap Sd Analyst Relationship Specialty Start Date End Date NameHenry MD [address] [place] [phone] PCP - General Family Medicine 08/19/15 Finn Galindo Publications Sales RepresentativeBiztalk Architect 08/06/23 Mari Carrion Airconditioning EngineerBiztalk Architect 12/03/23 Chiquita 01/18/24 documented as of this encounter
--- OUTSIDE RECORDS SUMMARY | 2024-07-03 08:56 | XMS_ITS | Clinical Summary ---
Author Organization [employer] Address [address] [facility] [address] [place] [address] Care Team Providers Care Medical Or Surgical Instrument Maker Name Role Phone Name, Henry BARTLETT Primary Care Provider [phone] Allergies Active Allergy Reactions Criticality Noted Date Comments Celecoxib 05/23/2022 Other reaction(s): GI UPSET Ibuprofen Unknown 10/21/2015 Other reaction(s): gi upset Iodinated Contrast Media 05/23/2022 Other reaction(s): anaphylactic shock Iodine Unknown 10/21/2015 Pineapple Itching 12/04/2022 Medications * This document contains information received from the source organization and may not represent a complete record from that organization. Umeclidinium [place] (Incruse Ellipta) 62.5 MCG/ACT aerosol powder Inhale 1 puff 1 (one) time each day. Active docusate sodium (Colace) 100 MG capsule Take 1 capsule by mouth every 12 (twelve) hours. 020 Active pantoprazole (ProtoNix) 40 MG EC tablet Take 1 tablet by mouth 1 (one) time each day. 021 Active Misc. Devices (Pulse Oximeter) misc - for Covid and COPD 021 Active Blood Glucose Monitoring Suppl (FreeStyle glucose monitoring) kit 1 each if needed. 1 meter Active TRUEplus Lancets 33G miscIndications:D iabetic polyneuropathy associated with type 2 diabetes mellitus (CMS/HCC) TEST BLOOD SUGAR THREE TIMES DAILY 100 each 11 023 Active Alcohol Swabs (Alcohol Prep) 70 % padsIndications:D iabetic polyneuropathy associated with type 2 diabetes mellitus (CMS/HCC) TEST BLOOD SUGAR THREE TIMES DAILY 100 each Active FREESTYLE LITE test strip TEST BLOOD SUGAR THREE TIMES DAILY 50 strip Active metFORMIN (Glucophage) 500 MG tabletIndications :Type 2 diabetes mellitus with other specified complication, with long-term current use of insulin (CMS/HCC) TAKE 1 TABLET BY MOUTH TWICE DAILY IN THE MORNING AND IN THE EVENING WITH FOOD 180 tablet Active topiramate 50 MG tabletIndications :Migraine without status migrainosus, not intractable, unspecified migraine type TAKE 1 TABLET BY MOUTH TWICE DAILY IN THE MORNING AND AT BEDTIME 60 tablet Active nicotine (Nicoderm, Step 2) 14 MG/24HR patch APPLY 1 PATCH TOPICALLY EVERY DAY AND REMOVE AT BEDTIME Active sucralfate (Carafate) 1 GM/10ML suspension Take 10 mL (1 g) by mouth every 12 (twelve) hours. Daily on empty stomach 1 hour before meals and at bedtime 473 mL 024 2024 Active cetirizine (ZyrTEC) 10 MG tabletIndications :Seasonal allergies Take 1 tablet (10 mg) by mouth in the morning. 90 tablet Active Aspirin Low Dose 81 MG chewable tablet TAKE 1 TABLET BY MOUTH EVERY MORNING 90 tablet Active riboflavin (vitamin B2) 100 mg tablet tabletIndications :Hypercholesterol emia TAKE 4 TABLETS BY MOUTH EVERY MORNING 360 tablet Active atorvastatin (Lipitor) 20 MG tabletIndications :Hypercholesterol emia TAKE 1 TABLET BY MOUTH EVERY MORNING 90 tablet 1 Active losartan (Cozaar) 50 MG tabletIndications :Hypertension, unspecified type Take 1 tablet (50 mg) by mouth Once per day. 90 tablet 3 024 2024 Active famotidine (Pepcid) 20 MG tabletIndications :Heartburn TAKE 1 TABLET BY MOUTH AT BEDTIME 90 tablet 3 Active fluticasone (Flonase) 50 MCG/ACT nasal sprayIndications: Chronic bronchitis, unspecified chronic bronchitis type (CMS/HCC) USE 2 SPRAYS IN EACH NOSTRIL ONCE DAILY DIRECTED 48 g 1 Active lidocaine (Lidoderm) 5 % patch APPLY 1 PATCH TOPICALLY TO SKIN, LEAVE ON FOR 12 HOURS AND OFF FOR 12 HOURS DIRECTED Active insulin detemir (Levemir) 100 UNIT/ML injectionIndicati ons:Type 2 diabetes mellitus with other specified complication, with long-term current use of insulin (CMS/HCC) Inject 30 Units under the skin Once daily. 10 mL 11 024 2024 Active ferrous gluconate (Fergon) 324 (38 Fe) MG tabletIndications :Iron deficiency anemia, unspecified iron deficiency anemia type 1 tab in the morning with breakfast 90 tablet 1 Active Fluticasone Furoate-Vilantero l (Breo Ellipta) 100-25 MCG/ACT aerosol powder Inhale 1 Inhalation Once daily. Active traZODone (Desyrel) 100 MG tablet Take 1 tablet (100 mg) by mouth at bedtime. Active albuterol (2.5 MG/3ML) 0.083% nebulizer solution Take 3 mL (2.5 mg) by nebulization every 6 (six) hours if needed for wheezing. 360 mL 3 Active Azelastine HCl 137 MCG/SPRAY solutionIndicatio ns:Chronic bronchitis, unspecified chronic bronchitis type (CMS/HCC) USE 1 SPRAY IN EACH NOSTRIL TWICE DAILY 30 mL 2 Active Diclofenac Sodium 1 % gelIndications:Ch ronic low back pain, unspecified back pain laterality, unspecified whether sciatica present APPLY TO THE AFFECTED AREA(S) TOPICALLY 2 GRAMS EVERY DAY 100 g 1 Active amoxicillin (Amoxil) 500 MG capsule Take 4 capsules of amoxicillin 500 mg 1 hour prior dental procedure 12 capsule 024 Active lactulose (Chronulac) 10 GM/15ML solution TAKE 15mls BY MOUTH EVERY DAY 450 mL 5 024 Active tamsulosin (Flomax) 0.4 MG 24 hr capsule TAKE 1 CAPSULE BY MOUTH EVERY EVENING 90 capsule 025 Active albuterol (Ventolin HFA) 108 (90 Base) MCG/ACT inhalerIndication s:Short of breath on exertion Inhale 2 puffs every 6 (six) hours if needed for wheezing. 18 g 11 025 Active SUMAtriptan (Imitrex) 100 MG tabletIndications :Migraine without status migrainosus, not intractable, unspecified migraine type TAKE 1 TABLET BY MOUTH AT ONSET OF MIGRAINE. MAY REPEAT ONCE AFTER 2 HOURS IF NEEDED 10 tablet 2 025 Active oxyCODONE-acetami nophen (Percocet) 7.5-325 MG tabletIndications :Chronic pain syndrome Take 1 tablet by mouth every 8 (eight) hours if needed for severe pain for up to 28 days. 84 tablet 025 2024 Active insulin syringe-needle U-100 (UltiCare Insulin Syringe) 31G X 5/16 1 mL misc Use as instructed 100 each 5 025 Active pregabalin (Lyrica) 100 MG capsuleIndication s:Diabetic polyneuropathy associated with type 2 diabetes mellitus (CMS/HCC) TAKE 1 CAPSULE BY MOUTH THREE TIMES DAILY IN THE MORNING, EVENING, AND BEDTIME 90 capsule 025 Active UltiCare Insulin Syringe 31G X 5/16 1 ML misc USE DAILY DIRECTED 100 each 5 023 2024 Discontinued(R eorder (will not trigger notification to Pharmacy)) Ventolin HFA 108 (90 Base) MCG/ACT inhalerIndication s:Short of breath on exertion INHALE 2 PUFFS BY MOUTH EVERY 6 HOURS NEEDED FOR WHEEZING 18 g 11 024 2024 Discontinued(R eorder (will not trigger notification to Pharmacy)) SUMAtriptan (Imitrex) 100 MG tabletIndications :Migraine without status migrainosus, not intractable, unspecified migraine type TAKE 1 TABLET BY MOUTH AT ONSET OF MIGRAINE. MAY REPEAT ONCE AFTER 2 HOURS IF NEEDED 10 tablet 2 024 2024 Discontinued(R eorder (will not trigger notification to Pharmacy)) oxyCODONE-acetami nophen (Percocet) 7.5-325 MG tabletIndications :Chronic pain syndrome Take 1 tablet by mouth every 8 (eight) hours if needed for severe pain for up to 28 days. Do not start before May 20, 2024. 84 tablet 025 2024 Discontinued(R eorder (will not trigger notification to Pharmacy)) pregabalin (Lyrica) 100 MG capsuleIndication s:Diabetic polyneuropathy associated with type 2 diabetes mellitus (CMS/HCC) TAKE 1 CAPSULE BY MOUTH THREE TIMES DAILY IN THE MORNING, EVENING, AND BEDTIME 90 capsule 025 2024 Discontinued(R eorder (will not trigger notification to Pharmacy)) Active Problems Problem Noted Date Diagnosed Date Dental plaque 04/01/2024 Generalized gingival recession 04/01/2024 Missing teeth, acquired 04/01/2024 Xerostomia 04/01/2024 Hair loss 02/10/2024 Assessment & Plan (02/10/2024 8:20 PM EDT): Suspect stress induced hair loss, however will check labs COPD exacerbation 02/10/2024 Assessment & Plan (02/10/2024 8:20 PM EDT): Rx for prednisone, monitor sugars, [facility] hours reviewed Chronic constipation 11/19/2023 Anemia 11/13/2023 Open fracture of left tibia 11/13/2023 Aortic valve stenosis 11/01/2023 Type 2 diabetes mellitus treated with insulin Assessment & Plan (02/10/2024 8:21 PM EDT): Has upcoming visit with pcp encouraged pt to discuss trulicity then Use of opiates for therapeutic purposes 11/30/19 Arthritis 11/29/2022 Cataract of both eyes 11/29/2022 Gastroesophageal reflux disease without esophagi tis 11/29/2022 Hepatitis C virus infection 11/29/2022 Pain of foot 11/29/2022 Chronic bronchitis 03/29/2022 Chronic sinusitis 03/29/2022 Depressive disorder 03/29/2022 Epigastric pain 03/29/2022 Seasonal allergic reaction 03/29/2022 Chronic pain 03/29/2022 History of cataract extraction 03/29/2022 History of hepatitis C 03/29/2022 Smoker 03/29/2022 Spinal cord stimulator status 10/13/2018 Hepatic fibrosis 08/11/2018 Chronic low back pain 03/26/2017 Diabetic polyneuropathy 02/26/2017 Hypertensive disorder 07/10/2016 Heartburn 07/10/2016 Fibromyalgia 02/27/2016 SHANNAN on CPAP 02/27/2016 Overview (11/29/2022): Not using noninvasive ventilation device Recurrent sinusitis 02/14/2016 Asthma 09/20/2015 H/O: hysterectomy 09/20/2015 History of cholecystectomy 09/20/2015 History of total knee arthroplasty 09/20/2015 Hyperlipidemia 09/20/2015 Migraine 09/20/2015 Morbid obesity 09/20/2015 Resolved Problems Problem Noted Date Diagnosed Date Resolved Date Itching 01/02/2024 03/02/2024 Delirium 11/13/2023 03/02/2024 Diabetes mellitus 09/20/2015 01/02/2023 Encounters Date Type Department Care Team Description 06/30/2024 Refill [facility] PEDS [address] [place] [address] Henry Bernardo MD Diabetic polyneuropathy associated with type 2 diabetes mellitus ([facility]) 06/26/2024 10:30 AM EST Telemedicine [facility] MEDICINE [address] [place] [phone] Suni Rodriguez, cuprous chloride helper low back pain, unspecified back pain laterality, unspecified whether sciatica present 06/26/2024 Travel 06/26/2024 Telephone [facility] MEDICINE [address] [place] [phone] Suni Rodriguez, RN Recommend CURRICULUM DEVELOPMENT SPECIALIST Tele Tier 2 06/18/2024 Refill [facility] [address] [place] [address] Henry Bernardo MD 06/17/2024 Refill [facility] MEDICINE [address] [place] [address] Henry Bernardo MD Chronic pain syndrome 06/11/2024 Refill [facility] [address] [place] [address] Henry Bernardo MD Migraine without status migrainosus, not intractable, unspecified migraine type 06/08/2024 Refill [facility] [address] [place], [place] [phone] Henry Bernardo MD Short of breath on exertion 05/26/2024 Refill [facility] [address] [place] [address] Henry Bernardo MD Diabetic polyneuropathy associated with type 2 diabetes mellitus ([facility]) 05/18/2024 Refill [facility] MEDICINE [address] [place] [phone] Melisa Li MD 05/15/2024 Telephone [facility] MEDICINE [address] [place] [phone] Yu Baker MA feb recalls 05/15/2024 Refill [facility] [address] [place] [address] Henry Bernardo MD Chronic pain syndrome 04/30/2024 Refill [facility] MEDICINE [address] [place] [phone] Yue Olsen NP COPD exacerbation ([facility]) 04/28/2024 Telephone [facility] MEDICINE [address] [place] [phone] Henry Bernardo MD Medication Question 04/21/2024 Refill [facility] [address] [place] [address] Henry Bernardo MD Diabetic polyneuropathy associated with type 2 diabetes mellitus ([facility]) 04/20/2024 Refill [facility] MEDICINE [address] [place] [phone] Henry Bernardo MD Chronic pain syndrome 04/03/2024 10:30 AM EST Telemedicine [facility] MED[facility]INE [address] [place] [phone] Suni Rodriguez, cuprous chloride helper low back pain, unspecified back pain laterality, unspecified whether sciatica present 04/03/2024 Travel from Last 3 Months Immunizations Name Administration Dates Next Due Hep A, Adult 04/23/2006,04/24/2005 Hep A, Unspecified 04/23/2006,04/24/2005 Hep B, Unspecified 08/27/2018, 3,06/16/2012,04/23,05/29/2005,04/24/2005 Hep B, adult 08/27/2018, 3,06/16/2012,04/23,05/29/2005,04/24/2005 INFLUENZA VACCINE QUADRIVALE NT RECOMBINANT PRESERVATIVE FREE RIV4 02/10/2020 Influenza injectable quadriv alent IIV4 with preservative 06/24/2019,02/26/2018,02/13/2017,02/26 Influenza injectable quadriv alent preservative free 03/13/2023,02/28/2021 Influenza, IIV3, injectable 01/22/2013,1 05/23/2011,03/02/2011,01/25,01/27/2009,03/07/2008,06/13/2007 ,04/23/2006,04/06/2005 Influenza, seasonal, injecta ble, preservative free 01/28/2024,07/09/2022 Moderna Covid-19 Vaccine 12+ 06/16/2020,05/26/19 21 Novel [id number], preservative-free 05/20/2009 Pfizer Covid-19 Vaccine 12+ 04/09/2023,1 ,06/16/2020,05/26 Pfizer Covid-19 Vaccine 12+ Bivalent 07/09/2022 Pneumococcal Conjugate PCV 20 08/06/2023 Pneumococcal Polysaccharide PPSV23 03/07/2008, SARS-CoV-2, Unspecified 02/28/2021,06/16/2020, TD (adult), 2 Lf tetanus tox oid, preservative free, adsorbed 06/24/2019,09/06/2006 Td (adult), 5 Lf tetanus tox oid, preservative free, adsorbed 09/06/2006 Td (adult), unspecified 06/24/2019,09/06/2006 Tdap 09/27/2008 Social History Tobacco Use Types Packs/Day Years Used Date Smoking Tobacco: Every Day Cigarettes Passive Smoke Exposure: Current Smokeless Tobacco: Current Tobacco Cessation:Ready to Q uit: Not Asked; Counseling Given: Not Answered Alcohol Use Standard Drinks/Week Comments Never 0 (1 standard drink = 0.6 oz pur e alcohol) Depression Answer Date Recorded Patient Health Questionnaire-9 Score 6 09/13/2022 Housing Stability Answer Date Recorded What is your housing situation today? I have aleksey sing 02/26/[address] you li [...] Orientation Straight 03/12/2022 10 :16 AM EDT Last Filed Vital Signs Vital Sign Reading Time Taken Comments Blood Pressure 130/76 04/01/2024 11:10 AM EST Pulse 84 02/10/2024 3:50 PM EDT Temperature 36.8 ??C (98.2 ??F) 11/01/2023 9:37 AM ED T Respiratory Rate 18 02/10/2024 3:50 PM EDT Oxygen Saturation 99% 02/10/2024 3:50 PM EDT Inhaled Oxygen Concentration - - Weight 85.7 kg (189 lb) 01/28/2024 1:22 PM EDT Height 160 cm (5' 3 ) 02/10/2024 3:50 PM EDT Body Mass Index 33.48 01/28/2024 1:22 PM EDT Plan of Treatment Upcoming Encounters Date Type Department Care Team (Late st Contact Info) Description 07/29/2024 10:45 AM EDT Office Visit [facility] MEDICINE [address] [place] [phone] Name, MD Henry [address] [place] [address] 09/11/2024 9:30 AM EDT Telemedicine [facility] MEDICINE [address] [place] [address] Suni Rodriguez, EDWARD 10/01/2024 10:00 AM EDT Office Visit [facility] ADULT DENTAL [address] [place] [address] Clarisse Bar [address] [place] [address] Health Maintenance Due Date Last Done Comments CT Colonography 1959 FIT DNA/Cologuard 1959 FIT 1959 FOBT 1959 Sigmoidoscopy 1959 Alcohol/Substance Use Screening 1971 Pap Smear 11/27/1980 Cervical Cancer Screening 11/27/1989 HPV/Cotest 11/27/1989 Zoster Vaccines (1 of 2) 11/27/2009 RSV Patients and Patients Aged 60 years or older (1 - Risk 60-74 years 1-dose series) 2019 Mammogram 05/31/2023 05/31/2021, 05/29/2018 Dental X-Ray: Bitewings 07/13/2023 07/11/2022 Depression Screening 09/14/2023 09/13/2022, 09/14/19 23 SDOH Screening 09/14/2023 09/13/2022 COVID-19 Vaccine ( season) 2024 04/09/2023, 07/09/2022, 02/28/2021, Additional history exists Diabetes: Hemoglobin A1C 04/28/20242 024, 08/06/2023, 04/09/2023, Additional history exists Diabetes: Foot Exam 08/05/2024 08/06/2023, 08/06/2023, 04/09/2023, Additional history exists Dental Oral Exam 09/09/2024 03/10/2024, 05/2022, 05/23/2022 Dental Prophylaxis 09/30/2024 04/01/2024 Diabetes: Urine Protein Screening 10/15/2024 10/16/2023, 09/13/2022, 03/02/2020, Additional history exists Lipid Panel 10/15/2024 10/16/2023, 03/02/2020 Tobacco Screening 04/01/2025 04/01/2024 Colonoscopy 04/12/2025 04/12/2020 Colorectal Cancer Screening 04/12/2025 Eye Exam 09/10/2025 09/11/2023, 05/0 05/2023, 09/11/2023, Additional history exists Dental X-Ray: Full Mouth 03/11/2027 03/10/2024 DTaP/Tdap/Td Vaccines (4 - Td or Tdap) 06/24/2029 06/24/2019, 06/24/2019, 09/27/2008, Additional history exists Hepatitis A Vaccines Completed 04/23/2006, 04/23/2006, 04/24/2005, Additional history exists Hepatitis B Vaccines Completed 08/27/2018, 08/27/2018, 01/22/2013, Additional history exists HIV Screening Completed 01/30/2021 Pneumococcal Vaccine: 50+ Years Completed 08/06/2023, 03/07/2008, 04/09/2005 Influenza Vaccine Completed 01/28/2024, , 07/09/2022, Additional history exists HIB Vaccines Aged Out No longer eligi ble based on patient's age to complete this topic HPV Vaccines Aged Out No longer eligi ble based on patient's age to complete this topic IPV Vaccines Aged Out No longer eligi ble based on patient's age to complete this topic Meningococcal Vaccine Aged Out No anna silver eligible based on patient's age to complete this topic RSV under 20 months Aged Out No longe r eligible based on patient's age to complete this topic Rotavirus Vaccines Aged Out No longer eligible based on patient's age to complete this topic Procedures Procedure Name Priority Date/Time Associated Diagnosis Comments PROPHYLAXIS - ADULT Routine 04/01/2024 1 1:00 AM EST Dental plaque Generalized gingival recession Missing teeth, acquired Xerostomia PANORAMIC RADIOGRAPHIC IMAGE Routine 03/10/2024 3:30 PM EDT Encounter for dental examination Dental caries Generalized gingival recession PERIODIC ORAL EVALUATION - ESTABLISHED PATIENT Routine 03/10/2024 3:30 PM EDT Encounter for dental examination Dental caries Generalized gingival recession POCT GLYCATED HEMOGLOBIN, TOTAL Routine 01/28/2024 1:23 PM EDT Type 2 diabetes mellitus with other specified complication, with long-term current use of insulin (CMS/HCC) ALBUMIN, RANDOM URINE W/CREATININE Routine 10/16/2023 9:50 AM EDT Aortic valve stenosis, etiology of cardiac valve disease unspecified Diabetic polyneuropathy associated with type 2 diabetes mellitus (CMS/HCC) Chronic bronchitis, unspecified chronic bronchitis type (CMS/HCC) Tobacco user Chronic pain syndrome LIPID PANEL, STANDARD Routine 10/16/2023 9:45 AM EDT Aortic valve stenosis, etiology of cardiac valve disease unspecified Diabetic polyneuropathy associated with type 2 diabetes mellitus (CMS/HCC) Chronic bronchitis, unspecified chronic bronchitis type (CMS/HCC) Tobacco user Chronic pain syndrome BITEWINGS - 4 RADIOGRAPHIC IMAGES Routine 07/11/2022 10:00 AM EST Recurrent dental caries extending into dentin Encounter for dental examination MAMMOGRAM GENERIC Routine 05/31/2021 12: 50 PM EST HIV 1/2 ANTIGEN/ANTIBODY, FOURTH GENERATION W/RFL Routine 01/30/2021 9:42 AM EDT HM COLONOSCOPY Routine 04/12/2020 10:05 AM EST from Last 3 Months or Most Recently Relevant to Health Maintenance Results * (ABNORMAL) POCT HGB A1C (01/28/2024 1:23 PM EDT) Hemoglobin A1C 7.2(A) 4.0 - 6.0 % QC Media Lot # [id number] Lot# Expiration Date [id number] Blood 01/28/2024 1:23 PM EDT us Henry Bernardo MD POINT OF CARE TEST ENTER/EDIT OR DERABLES Final Result * Albumin, Random Urine W/Creatinine (10/16/2023 9:50 AM EDT) Creatinine, Urine 246.69 mg/dL [facility] Microalbumin Urine 39.0 mg/L H [facility] Microalbum Creatinine Ratio Ur 15.8 <30 ug/mg cr [facility] Comment:Albumin/Creatinine R atio Reference Ranges: Normal: < 30 ug/mg creatinine Microalbuminuria: 30 - 300 ug/mg creatinineClinical Albuminuria: > 300 ug/mg creatinine Urine (Urine, Random) 10/16/2023 9:50 AM EDT 10/16/2023 2:51 PM EDT us Henry Name LAB URINE ORDERABLES Final Resul t [facility] [address] [place] [phone] * (ABNORMAL) Lipid Panel, Standard (10/16/2023 9:45 AM EDT) Triglycerides 220(H) <150 mg/dL [facility] Comment:Desirable Triglyceri de: less than 150 mg/dLBorderline High Triglyceride 150-199 mg/dLHigh Triglyceride: 200-499 mg/dLVery High Triglyceride: greater than or equal to 5OO mg/dL Cholesterol 163 <200 mg/dL [facility] Comment:Desirable Cholestero l: less than 200 mg/dLBorderline High Cholesterol: 200-239 mg/dLHigh Cholesterol: greater than 239 mg/dL LDL Cholesterol Calculated 81 <100 mg/dL [facility] Comment:Desirable LDL: less than 100 mg/dLNear Optimal/Above Optimal LDL: 110- 129 mg/dLBorderline High LDL: 130-159 mg/dLHigh LDL: 160-189 mg/dLVery High LDL: greater than or equal to 190 mg/dL HDL Cholesterol 38(L) >40 mg/dL [facility] Comment:Desirable HDL: great er than 40 mg/dL Note: This HDL assay may give artificially low results in patients with liver disease. Blood Venous blood specimen / Unknown 10/16/2023 9:45 AM EDT 10/16/2023 3:01 PM EDT us Henry Name MD LAB BLOOD ORDERABLES Final Resul t [facility] [address] [place] [phone] * Mammography Report 1 (05/31/2021 12:50 PM EST) Anatomical Region Laterality Modality Breast Bilateral Mammography 05/31/2021 12:5 0 PM EST Narrative 06/01/2021 11:03 AM EST Refer to the Notes tab for result details [facility] Procedure: Mammography Report 1 Procedure Note Provider, MD Eric - 08/05/2022 Refer to the Notes tab for result details [facility] Procedure: Mammography Report 1 Henry Bernardo MD IMG BI PROCEDURES Final Result * HIV 1/2 ANTIGEN/ANTIBODY,FOURTH GENERATION W/RFL (01/30/2021 9:42 AM EDT) HIV-1/2 ANTIGEN AND ANTIBODIES, 4TH GENERATION W/ REFLEX NON-REACT [facility] Comment: HIV-1 antigen and HIV-1/HIV-2 antibodies were not detected. There is no laboratory evidence of HIV infection. ?? PLEASE NOTE: This information has been disclosed to you from records whose confidentiality may be protected by state law. ??If your state requires such protection, then the state law prohibits you from making any further disclosure of the information without the specific written consent of the person to whom it pertains, or as otherwise permitted by law. A general authorization for the release of medical or other information is NOT sufficient for this purpose. ? For additional information please refer to http://education.Artabase.TrendingGames/faq/QQQ193 (This link is being provided for informational/ educational purposes only.) ? The performance of this assay has not been clinically validated in patients less than 2 years old. ?? 01/30/2021 9:42 AM EDT Sheyla Faith DIGITAL MANAGER LAB BLOOD ORDERABLES Final Res ult [facility] [address] [place] [address], * Hm Colonoscopy (04/12/2020 10:05 AM EST) Colonoscopy Normal Normal Narrative Amina Stroud - 04/12/2020 10:05 AM EST Recommended 5 [place] Historical Provider MD HEALTH MAINTENANCE Final Result from Last 3 Months or Most Recently Relevant to Health Maintenance [place] [address] [place] [address] [facility] MEDICAID STAND ADULT [address] [place] [address] [address] [place] [address] Care Teams Medical Or Surgical Instrument Maker Relationship Specialty Start Date End Date Name, MD Henry [address] [place] [phone] PCP - General Family Medicine 08/19/15 Finn Galindo Economic Development DirectorSr. Unix System Administrator 08/06/23 Mari Carrion Picture EnlargerSr. Unix System Administrator 12/03/23 Chiquita 01/18/24
--- OUTSIDE RECORDS SUMMARY | 2024-07-03 08:56 | XMS_ITS | Encounter Summary ---
Author Organization [employer] Address 75 [facility] 7t [place] [address] Care Team Providers Care Screwmaker Automatic Name Role Phone Name, Henry BARTLETT Primary Care Provider [phone] Reason for Visit * Reason Onset Date Comments Med Refill 06/08/2024 Encounter Details Date Type Department Care Team (Late st Contact Info) Description 06/08/2024 Refill [facility] MED & PEDS [address] [place], [place] [phone] Name, MD Henry [address] [place] [address] Short of breath on exertion Social History Tobacco Use Types Packs/Day Years [...] 10:45 AM EDT Office Visit [facility] [address] [place] [address] Name, MD Henry [address] [place] [address] 09/11/2024 9:30 AM EDT Telemedicine [facility] [address] [place] [address] Suni Rodriguez RN 10/01/2024 10:00 AM EDT Office Visit [facility] ADULT DENTAL [address] [place] [address] DipikaClarisse 230 [place] [address] documented as of this encounter Visit Diagnoses Diagnosis Short of breath on exertion documented in this encounter Additional Health Concerns Assessment Noted Time PHQ-9 Depression Total Score: 6 09/14/19 23 9:53 AM EDT documented as of this encounter Care Teams Screwmaker Automatic Relationship Specialty Start Date End Date Name, MD Henry [address] [place] [address] PCP - General Family Medicine 08/19/15 Finn Galindo Narrow Fabric CalendererWhite Spooler 08/06/23 Mari Carrion Guitar MakerWhite Spooler 12/03/23 [id number] 01/18/24 documented as of this encounter
--- OUTSIDE RECORDS SUMMARY | 2024-07-03 08:56 | XMS_ITS | Encounter Summary ---
Author Organization [employer] Address 75 [facility] 7t [place] [address] Care Team Providers Care Ordnance Technician Name Role Phone Name, Henry BARTLETT Primary Care Provider [phone] Reason for Visit * Reason Comments Med Refill Encounter Details Date Type Department Care Team (Late st Contact Info) Description 11/19/2022 Refill [facility] [address] [place] [address] [phone] Name, MD Henry [address] [place] [address] Chronic pain syndrome Social History Tobacco Use Types Packs/Day Years Used Date Smoking Tobacco: Every Day Cigarettes Passive Smoke Exposure: Current Smokeless Tobacco: Current Depression Answer Date Recorded [...] suspected to have Coronavirus/COVID-19? No / Unsure 11/05/2022 9:21 AM EDT documented as of this encounter Plan of Treatment Upcoming Encounters Date Type Department Care Team (Late st Contact Info) Description 07/29/2024 10:45 AM EDT Office Visit [facility] [address] [place] [address] Name, MD Henry [address] [place] [address] 09/11/2024 9:30 AM EDT Telemedicine [facility] [address] [place] [address] Suni Rodriguez RN 10/01/2024 10:00 AM EDT Office Visit [facility] ADULT DENTAL [address] [place] [address] Clarisse Bar [address] [place] [address] documented as of this encounter Visit Diagnoses Diagnosis Chronic pain syndrome documented in this encounter Additional Health Concerns Assessment Noted Time PHQ-9 Depression Total Score: 6 09/14/19 9:53 AM EDT documented as of this encounter Care Teams Ordnance Technician Relationship Specialty Start Date End Date Name, MD Henry [address] [place] [address] PCP - General Family Medicine 08/19/15 Finn Galindo Assistant Project ManagerOrder Schedule Clerk 08/06/23 Mari Carrion Radio ArtistOrder Schedule Clerk 12/03/23 Chiquita 01/18/24 documented as of this encounter
--- OUTSIDE RECORDS SUMMARY | 2024-07-03 08:56 | XMS_ITS | Encounter Summary ---
Author Organization [employer] Address 75 [facility] 7t [place] [address] Care Team Providers Care Director Of Child Welfare Services Name Role Phone NameHenry MD Primary Care Provider [phone] Reason for Visit * Reason Comments Med Refill Encounter Details Date Type Department Care Team (Late st Contact Info) Description 01/25/2023 Refill [facility] [address] [place] [address] [phone] NameHenry MD [address] [place] [address] Diabetic polyneuropathy associated with type 2 diabetes mellitus ([facility] Social History Tobacco Use Types Packs/Day Years [...] Description 07/29/2024 10:45 AM EDT Office Visit [facility] [address] [place] [address] [phone] NameHenry MD 230 [place] [address] 09/11/2024 9:30 AM EDT Telemedicine [facility] [address] [place], [place] [phone] Suni Rodriguez RN 10/01/2024 10:00 AM EDT Office Visit [facility] ADULT DENTAL [address] [place], [place] [phone] Clarisse aBr [address] [place] [address] documented as of this encounter Visit Diagnoses Diagnosis Diabetic polyneuropathy associated with type 2 diabetes mellitus (CMS/HCC) documented in this encounter Additional Health Concerns Assessment Noted Time PHQ-9 Depression Total Score: 6 09/14/19 9:53 AM EDT documented as of this encounter Care Teams Director Of Child Welfare Services Relationship Specialty Start Date End Date Name, [place] [address] PCP - General Family Medicine 08/19/15 Finn Galindo Engineering ClerkStudent Life Vice President 08/06/23 Mari Carrion It Disaster Recovery ManagerStudent Life Vice President 12/03/23 Chiquita 01/18/24 documented as of this encounter
--- OUTSIDE RECORDS SUMMARY | 2024-07-03 08:56 | XMS_ITS | Encounter Summary ---
Author Organization [employer] Address 75 [facility] 7t [place] [address] Care Team Providers Care Roofing Subcontractor Name Role Phone Name, Henry BARTLETT Primary Care Provider [phone] Reason for Visit * Reason Onset Date Comments Med Refill 06/18/2024 Encounter Details Date Type Department Care Team (Late st Contact Info) Description 06/18/2024 Refill [facility] MED & PEDS [address] [place], [place] [phone] Name, MD Henry [address] [place] [address] Social History Tobacco Use Types Packs/Day Years [...] 10:45 AM EDT Office Visit [facility] [address] [place] [address] Name, MD Henry [address] [place] [address] 09/11/2024 9:30 AM EDT Telemedicine [facility] [address] [place] [address] Suni Rodriguez RN 10/01/2024 10:00 AM EDT Office Visit [facility] ADULT DENTAL [address] [place] [address] Nicholas Bararis [address] [place] [address] documented as of this encounter Visit Diagnoses Not on filedocumented in this encounter Additional Health Concerns Assessment Noted Time PHQ-9 Depression Total Score: 6 09/14/19 23 9:53 AM EDT documented as of this encounter Care Teams Roofing Subcontractor Relationship Specialty Start Date End Date Name, MD Henry [address] [place] [address] PCP - General Family Medicine 08/19/15 Finn Galindo Oyster FloaterPlanning Intern 08/06/23 Mari Carrion Reference Data ExpertPlanning Intern 12/03/23 Chiquita 01/18/24 documented as of this encounter
--- OUTSIDE RECORDS SUMMARY | 2024-07-03 08:56 | XMS_ITS | Encounter Summary ---
Author Organization [employer] Address 75 [facility] 7t [place] [address] Care Team Providers Care Electric Crane Operator Name Role Phone Name, Henry BARTLETT Primary Care Provider [phone] Reason for Visit * Reason Comments NUTRITION INSTRUCTOR RV NUTRITION INSTRUCTOR RV Encounter Details Date Type Department Care Team (Late st Contact Info) Description 06/26/2024 10:30 AM EST Telemedicine [facility] [address] [place] [address] Suni Rodriguez RN Chronic low back pain, unspecified back pain laterality, unspecified whether sciatica present Social History Tobacco Use Types Packs/Day Years [...] AM EDT documented as of this encounter Progress Notes * Suni Rodriguez RN - 06/26/2024 10:30 AM EST S: Pt called for NUTRITION INSTRUCTOR Revisit, via BLS#[id number]. Prescribed Percocet 7.5mg Q8hr PRN. States she has been taking as prescribed, last dose taken was this morning. She smokes 1 pack of cigarettes daily and has for over 50 years. Denies Illicit drug use, marijuana use and ETOH use. Currently rates her paina 9 and states medication is 60% effective at alleviating her pain. Current pain sites are her shoulders, hips, ankles, knee's, left leg and her back. Patients medications are managed by [address] O: NUTRITION INSTRUCTOR Tele Tier 2. Pt currently prescribed Percocet 7.5mg Q8hr PRN. AUTOMOBILE RADIATOR MECHANIC verified today. Rx last filled on 06/17/24. Spoke with [facility] nurse Pradhan, who stated that patient has 57 percocet at this time, 56 at least expected. Medication is not overused by patient. Last PCP visit was 01/28/24, scheduled next07/29/24. A: NUTRITION INSTRUCTOR Revisit: Chronic Opioid use related to pain. P: Pt to continue taking medication only as prescribed; Next Tele NUTRITION INSTRUCTOR RV appointment scheduled for 09/11/24 @ 9:30a, F/U sooner PRN. Appointment reminder mailed. Pt verbalized understanding and agreed to plan. documented in this encounter Plan of Treatment Upcoming Encounters Date Type Department Care Team ([facility] st Contact Info) Description 07/29/2024 10:45 AM EDT Office Visit [facility] [address] [place] [address] Name, MD Henry [address] [place] [address] 09/11/2024 9:30 AM EDT Telemedicine [facility] [address] [place], [place] [phone] Suni Rodriguez RN 10/01/2024 10:00 AM EDT Office Visit [facility] ADULT DENTAL [address] [place] [address] Dipika, Clarisse [address] [place] [address] documented as of this encounter Visit Diagnoses Diagnosis Chronic low back pain, unspecified back pain laterality, unspecified whether sciatica present documented in this encounter Additional Health Concerns Assessment Noted Time PHQ-9 Depression Total Score: 6 09/14/19 23 9:53 AM EDT documented as of this encounter Care Teams Electric Crane Operator Relationship Specialty Start Date End Date Name, MD Henry [address] [place] [address] PCP - General Family Medicine 08/19/15 Finn Galindo Excelsior Machine OperatorResidential Collections 08/06/23 Mari Carrion Computer Numerical Control GrinderResidential Collections 12/03/23 Chiquita 01/18/24 documented as of this encounter
[2024-07-03 09:04] VITALS: BP 142/72; PULSE 83; O2SAT 99; BMI 32.8
--- NOTE | 2024-07-03 09:04 | MHC.OFFVIS ---
Vital Signs 07/03/24 09:04 Height 5 ft 3 in Weight 185 lb BMI 32.8 BP 142/72 H Blood Pressure Location Rt brachial Position Sitting Pulse 83 Pulse Source Doppler Pulse Oximetry (%) 99 Oxygen Delivery Method Room Air Intake Visit Reasons: hx nicotine dependence Long Wall Mining Machine Helper Required: Yes Long Wall Mining Machine Helper Name: Darlyn Diaz KendyDario Allergies iodine Allergy (Severe, Verified 12/21/23 19:08) THROAT CLOSES ibuprofen Adverse Reaction (Intermediate, Verified 12/21/23 19:08) UPSET STOMACH HPI HPI hx nicotine dependence: Details: 63-year-old lady, active 48 pack-year smoker, followed for underlying moderate asthma/COPD overlap syndrome and moderate SHANNAN.? She continues to use Breo, Incruse, and albuterol MDI with good baseline control of her underlying symptoms.? Today patient complains of approximately one-week history of cough productive of greenish sputum. She did complete her lung cancer screening CT chest. [facility] Medical History Diabetes Hepatitis GERD (gastroesophageal reflux disease) Neuropathy Fibromyalgia Depression Sleep apnea Asthma Elevated cholesterol HTN (hypertension) Surgical History History of esophagogastroduodenoscopy (EGD) H/O colonoscopy S/P insertion of spinal cord stimulator Hx of excision of mass Hx of hernia repair Social History Household Members: None Housing: Skilled Nursing Do you presently have visiting nurse or other home services: No (currently at [facility]) Alcohol intake: current Alcohol intake frequency: does not drink Alcohol type: wine 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 Patient Tobacco Use Status: Tobacco use Unknown Cigarette Packs Per Day: 1 Cigarettes Per Day: 24 Years Smoked: 48 Substance Use Type: Marijuana Advance Directives Date on File: 12/23/23 service: No Review of Systems Const Denies daytime sleepiness, Denies excessive sweating, Denies fatigue, Denies fever(s), Denies lethargy, Denies malaise, Denies night sweats, Denies snoring and Denies weight loss Eyes Denies blurry vision and Denies itchy eyes ENT Denies nasal congestion, Denies post nasal drip, Denies sinus pain, Denies sinus pressure and Denies other ( Thrush) Card Denies chest pain, Denies pedal edema, Denies dyspnea, Denies orthopnea and Denies paroxysmal nocturnal dyspnea Resp Reports cough, Denies hemoptysis, Reports excessive phlegm production, Denies dyspnea, Denies snoring and Denies wheezing GI Denies abdominal pain and Denies heartburn Musc Denies myalgias, Denies arthralgias and Denies joint swelling Skin/Breast Denies rash Neuro Denies memory loss and Denies seizure-like activity Psych Denies abnormal sleep pattern, Denies anxiety and Denies memory loss Endo Denies excessive sweating, Denies fatigue and Denies heat intolerance Ken/Lymph Denies easy bruising Aller/Immun Denies itchy eyes, Denies seasonal rhinorrhea and Denies wheezing Physical Exam Vital Signs: Last Vital Signs Pulse 83 07/03/24 09:04 BP 142/72 H 07/03/24 09:04 Pulse Ox 99 07/03/24 09:04 Oxygen Delivery Method Room Air 07/03/24 09:04 BMI result Body Mass Index 32.8 Const General: no acute distress and alert Nutritional Appearance: not obese Orientation/consciousness: Other orientation findings ( oriented) HEENT Head: Yes atraumatic Eyes General: appearance normal, both eyes and all related structures Sclerae: sclerae normal EOM: EOMs intact bilaterally Neck Neck: Yes supple Lymphatic: no lymphadenopathy noted Resp Effort & Inspection: normal respiratory effort and no use of accessory muscles Auscultation: clear to auscultation bilaterally Cardio Rate: regular rate Rhythm: regular rhythm Heart sounds: no gallops, no murmurs and no rubs Skin General skin exam: other ( warm) Extrem General: No clubbing, No cyanosis and No edema Assessment & Plan Assessment & Plan (1) Asthma-COPD overlap syndrome: Code(s): J44.9 - Chronic obstructive pulmonary disease, unspecified Category: Medical Plan: Baseline well controlled on regimen of Breo, Incruse, and albuterol MDI. Continue current regimen. Now with bronchitic exacerbation, will treat with a course of Augmentin. (2) Personal history of nicotine dependence: Code(s): Z87.891 - Personal history of nicotine dependence Category: Medical Plan: Results of lung cancer screening reviewed, no worrisome nodules. Continue with yearly screening, next in March of 2025. Medications: New amoxicillin-pot clavulanate 875-125 mg 1 tab PO BID 20 tabs 0RF Coding Level of Care Code Est Pt Level 4 (89324) Diagnoses Asthma-COPD overlap syndrome J44.9 Personal history of nicotine dependence Z87.899
== END 2024-07-03 09:30 | disposition home or self-care (01) ==
PROVIDERS: PCP Internal Medicine Geriatric Medicine; Visit Provider Internal Medicine Pulmonary Disease
DX: J44.9 Chronic obstructive pulmonary disease, unspecified (principal); Z87.891 Personal history of nicotine dependence
CPT/HCPCS: 99214

== ENCOUNTER → 2024-07-03 08:37 | Outpatient (BNVA) | payer MEDICAID, SELFPAY | PROVIDERS: PCP Internal Medicine Geriatric Medicine; Visit Provider Internal Medicine Pulmonary Disease | DX: J44.9 Chronic obstructive pulmonary disease, unspecified (principal); Z87.891 Personal history of nicotine dependence | CPT/HCPCS: 99212 ==

== ENCOUNTER 2024-08-14 10:11 | Outpatient (REF) | payer MEDICAID, SELFPAY ==
--- OUTSIDE RECORDS SUMMARY | 2024-08-14 11:35 | XMS_ITS | Encounter Summary ---
Author Organization [employer] Address 75 [facility] 7t [place] [address] Care Team Providers Care Creative Lead Name Role Phone Name, Henry BARTLETT Primary Care Provider [phone] Reason for Visit * Reason Comments Med Refill Encounter Details Date Type Department Care Team ([facility] st Contact Info) Description 08/05/2023 Refill [facility] MED & PEDS [address] [place], [place] [phone] Name, MD Henry [address] [place] [address] Chronic pain syndrome Social History Tobacco Use [...] Care Team (Late st Contact Info) Description 10/01/2024 10:00 AM EDT Office Visit [facility] ADULT DENTAL [address] [place] [address] Clarisse Bar [address] [place] [address] 11/18/2024 10:30 AM EDT Office Visit [facility] [address] [place] [address] Name, MD Henry [address] [place] [address] 11/27/2024 9:30 AM EDT Telemedicine [facility] [address] [place] [address] Suni Rodriguez, EDWARD documented as of this encounter Visit Diagnoses Diagnosis Chronic pain syndrome documented in this encounter Additional Health Concerns Assessment Noted Time PHQ-9 Depression Total Score: 6 09/14/19 23 9:53 AM EDT documented as of this encounter Care Teams Creative Lead Relationship Specialty Start Date End Date Name, MD Henry [address] [place] [address] PCP - General Family Medicine 08/19/15 Finn Galindo Patient Registration SupervisorErp Analyst 08/06/23 Mari Carrion Platform ArchitectErp Analyst 12/03/23 Chiquita 01/18/24 documented as of this encounter
--- OUTSIDE RECORDS SUMMARY | 2024-08-14 11:35 | XMS_ITS | Encounter Summary ---
Author Organization [employer] Address 75 [facility] 7t [place] [address] Care Team Providers Care Prepared Foods Team Leader Name Role Phone Name, Henry BARTLETT Primary Care Provider [phone] Reason for Visit * Reason Comments Med Refill Encounter Details Date Type Department Care Team ([facility] st Contact Info) Description 08/11/2024 Refill [facility] MED & PEDS [address] [place], [place] [phone] Name, MD Henry [address] [place] [address] Chronic pain syndrome Social History Tobacco Use [...] encounter Miscellaneous Notes * Telephone Encounter - Marian Vo RN - 08/12/2024 8:34 AM EDT [employer] checked by instructional writer on 08/12/24. Pt picked up a 28 day supply of oxyCODONE- acetaminophen (Percocet) 7.5-325 MG tablet on 07/15/24. Pt due for refill today 08/12/24. Medication pended to PCP. Message forwarded to PCP to review and advise. * Telephone Encounter - Marian Vo RN - 08/11/2024 3:33 PM EDT [employer] checked by instructional writer. Pt picked up a 28 day supply of oxyCODONE- acetaminophen (Percocet) 7.5-325 MG tablet on 07/15/24. Pt not due for refill until tomorrow 08/12/24. Reminder sent to drake team nurses for 08/12/24 to pend medication to PCP. documented in this encounter Plan of Treatment Upcoming Encounters Date Type Department Care Team (Late st Contact Info) Description 10/01/2024 10:00 AM EDT Office Visit [facility] ADULT DENTAL [address] [place] [address] Clarisse Bar [address] [place], [place] [phone] 11/18/2024 10:30 AM EDT Office Visit [facility] [address] [facility] [place] [address] Name, MD [place] [address] 11/27/2024 9:30 AM EDT Telemedicine [facility] [place] [address] Suni Rodriguez RN documented as of this encounter Visit Diagnoses Diagnosis Chronic pain syndrome documented in this encounter Additional Health Concerns Assessment Noted Time PHQ-9 Depression Total Score: 6 09/14/19 23 9:53 AM EDT documented as of this encounter Care Teams Prepared Foods Team Leader Relationship Specialty Start Date End Date Name, [place] [address] PCP - General Family Medicine 08/19/15 Finn Galindo Platform Material Handling SupervisorTransmission Rebuilder 08/06/23 Mari Carrion Baggage SmasherTransmission Rebuilder 12/03/23 Chiquita 01/18/24 documented as of this encounter
--- OUTSIDE RECORDS SUMMARY | 2024-08-14 11:35 | XMS_ITS | Encounter Summary ---
Author Organization [employer] Address 75 [facility] 7t [place] [address] Care Team Providers Care Technical Marketing Consultant Name Role Phone Name, Henry BARTLETT Primary Care Provider [phone] Encounter Details Date Type Department Care Team (Latest Contact Info) Description 03/20/2021 Abstract [facility] CONVERSIONS Dental, Provider, DDS Social History Tobacco [...] Care Team ( st Contact Info) Description 10/01/2024 10:00 AM EDT Office Visit [facility] ADULT DENTAL [address] [place] [address] Clarisse Bar [address] [place] [address] 11/18/2024 10:30 AM EDT Office Visit [facility] MEDICINE [address] [place] [address] [phone] Name, MD Henry [address] [place] [address] 11/27/2024 9:30 AM EDT Telemedicine [facility] MEDICINE [address] [place] [address] Suni Rodriguez RN documented as of this encounter Visit Diagnoses Not on filedocumented in this encounter Care Teams Technical Marketing Consultant Relationship Specialty Start Date End Date Name, MD Henry [address] [place] [address] PCP - General Family Medicine 08/19/15 Finn Galindo Electronic Maintenance SupervisorReconciliation Manager 08/06/23 Mari Carrion Pattern Shop SupervisorReconciliation Manager 12/03/23 Chiquita 01/18/24 documented as of this encounter
--- OUTSIDE RECORDS SUMMARY | 2024-08-14 11:35 | XMS_ITS | Encounter Summary ---
Author Organization [employer] Address 75 [facility] 7t [place] [address] Care Team Providers Care Senior Policy Analyst Name Role Phone Name, Henry BARTLETT Primary Care Provider [phone] Reason for Visit * Reason Comments Med Refill Encounter Details Date Type Department Care Team ([facility] st Contact Info) Description 07/09/2023 Refill [facility] MED & PEDS [address] [place], [place] [phone] Name, MD Henry [address] [place] [address] Chronic pain syndrome Social History Tobacco Use [...] Description 10/01/2024 10:00 AM EDT Office Visit [facility] ADULT DENTAL [address] [place] [address] Clarisse Bar [address] [place] [address] 11/18/2024 10:30 AM EDT Office Visit [facility] MEDICINE [address] [place] [phone] Name, MD Henry [address] [place] [address] 11/27/2024 9:30 AM EDT Telemedicine [facility] MEDICINE [address] [place] [address] Suni Rodriguez, EDWARD documented as of this encounter Visit Diagnoses Diagnosis Chronic pain syndrome documented in this encounter Additional Health Concerns Assessment Noted Time PHQ-9 Depression Total Score: 6 09/14/19 23 9:53 AM EDT documented as of this encounter Care Teams Senior Policy Analyst Relationship Specialty Start Date End Date Name, MD Henry [address] [place] [address] PCP - General Family Medicine 08/19/15 Finn Galindo Rfid SpecialistNetwork Firewall Engineer 08/06/23 Mari Carrion Animal CaregiverNetwork Firewall Engineer 12/03/23 Chiquita 01/18/24 documented as of this encounter
--- OUTSIDE RECORDS SUMMARY | 2024-08-14 11:35 | XMS_ITS | Encounter Summary ---
Author Organization [employer] Address 75 [facility] 7t [place] [address] Care Team Providers Care Tool Designer Apprentice Name Role Phone Name, Henry BARTLETT Primary Care Provider [phone] Encounter Details Date Type Department Care Team (Late st Contact Info) Description 05/09/2022 [facility] Only [facility] 230 [place], [place] [phone] Darlyn Pagan RN 230 [place] [address] Social History Tobacco Use Types Packs/Day Years [...] Description 10/01/2024 10:00 AM EDT Office Visit [facility] ADULT DENTAL 230 [place] [address] Clarisse Bar 230 [place], [place] [phone] 11/18/2024 10:30 AM EDT Office Visit [facility] MEDICINE 230 [place] [address] Name, MD Henry 230 [place], [place] [phone] 11/27/2024 9:30 AM EDT Telemedicine [facility] MEDICINE [facility] [place], [place] [phone] Suni Rodriguez, EDWARD documented as of this encounter Visit Diagnoses Not on filedocumented in this encounter Care Teams Tool Designer Apprentice Relationship Specialty Start Date End Date Name, MD Henry 230 [facility] [place] [address] PCP - General Family Medicine 08/19/15 Finn Galindo Shuttle DriverHotel Server 08/06/23 Mari Carrion Lithographic Press FeederHotel Server 12/03/23 Chiquita 01/18/24 documented as of this encounter
--- OUTSIDE RECORDS SUMMARY | 2024-08-14 11:35 | XMS_ITS | Encounter Summary ---
Author Organization [employer] Address 75 [facility] 7t [place] [address] Care Team Providers Care Recreational Programs Director Name Role Phone Name, Henry BARTLETT Primary Care Provider Reason for Visit * Reason Comments Med Refill Encounter Details Date Type Department Care Team ([facility] st Contact Info) Description 08/05/2024 Refill [facility] MED & PEDS [address] [place], [place] [phone] Name, MD Henry 230 [place] [address] Chronic pain syndrome Social History Tobacco Use [...] Description 10/01/2024 10:00 AM EDT Office Visit [facility] ADULT DENTAL [address] [place] [address] Clarisse Bar 230 [place] [address] 11/18/2024 10:30 AM EDT Office Visit [facility] MEDICINE [address] [place] [address] Name, MD Henry [address] [place] [address] 11/27/2024 9:30 AM EDT Telemedicine [facility] MEDICINE [address] [place] [address] Suni Rodriguez, EDWARD documented as of this encounter Visit Diagnoses Diagnosis Chronic pain syndrome documented in this encounter Additional Health Concerns Assessment Noted Time PHQ-9 Depression Total Score: 6 09/14/19 23 9:53 AM EDT documented as of this encounter Care Teams Recreational Programs Director Relationship Specialty Start Date End Date Name, MD Henry [address] [place] [address] PCP - General Family Medicine 08/19/15 Finn Galindo Loom Winder TenderFiller Machine Operator 08/06/23 Mari Carrion Wire HangerFiller Machine Operator 12/03/23 Chiquita 01/18/24 documented as of this encounter
--- OUTSIDE RECORDS SUMMARY | 2024-08-14 11:36 | XMS_ITS | Encounter Summary ---
Author Organization [employer] Address 75 [facility] 7t [place] [address] Care Team Providers Care Roof Mechanic Name Role Phone Name, Henry BARTLETT Primary Care Provider [phone] Reason for Visit * Reason Comments Med Refill Encounter Details Date Type Department Care Team (Late st Contact Info) Description 02/08/2023 Refill [facility] CH[facility] MED & PEDS [address] [place], [place] [phone] Name, MD Henry 230 [place] [address] Chronic pain syndrome Social History Tobacco Use [...] Department Care Team (Late Contact Info) Description 10/01/2024 10:00 AM EDT Office Visit [facility] ADULT DENTAL 230 [place], [place] [phone] Clarisse Bar 230 [place] [address] 11/18/2024 10:30 AM EDT Office Visit [facility] MEDICINE [address] [place] [address] Name, [place] [address] 11/27/2024 9:30 AM EDT Telemedicine [facility] MEDICINE [address] [place] [address] Suni Rodriguez, RN documented as of this encounter Visit Diagnoses Diagnosis Chronic pain syndrome documented in this encounter Additional Health Concerns Assessment Noted Time PHQ-9 Depression Total Score: 6 09/14/19 23 9:53 AM EDT documented as of this encounter Care Teams Roof Mechanic Relationship Specialty Start Date End Date Name, [place] [address] PCP - General Family Medicine 08/19/15 Finn Galindo Cab DriverSales Agent Financial Report Service 08/06/23 Mari Carrion Loader Malt HouseSales Agent Financial Report Service 12/03/23 Chiquita 01/18/24 documented as of this encounter
--- OUTSIDE RECORDS SUMMARY | 2024-08-14 11:36 | XMS_ITS | Encounter Summary ---
Author Organization [employer] Address 75 [facility] 7t [place] [address] Care Team Providers Care Furnace Converter Name Role Phone Name, Henry BARTLETT Primary Care Provider [phone] Reason for Visit * Reason Onset Date Comments FYI 12/02/2023 Encounter Details Date Type Department Care Team ([facility] st Contact Info) Description 12/02/2023 Telephone [facility] MEDICINE 230 [place], [place] [phone] Name, MD Henry 230 [place] [address] FYI Social History Tobacco Use Types Packs/Day [...] Description 10/01/2024 10:00 AM EDT Office Visit [facility] ADULT DENTAL 230 [place] [address] Clarisse Bar [address] [place] [address] 11/18/2024 10:30 AM EDT Office Visit [facility] MEDICINE [address] [place] [address] Name, MD Henry [address] [place] [address] 11/27/2024 9:30 AM EDT Telemedicine [facility] MEDICINE [address] [place] [address] Suni Rodriguez RN documented as of this encounter Visit Diagnoses Not on filedocumented in this encounter Additional Health Concerns Assessment Noted Time PHQ-9 Depression Total Score: 6 09/14/19 23 9:53 AM EDT documented as of this encounter Care Teams Furnace Converter Relationship Specialty Start Date End Date Name, MD Henry [address] [place] [address] PCP - General Family Medicine 08/19/15 Finn Galindo Editor Greeting CardSummer Law Associate 08/06/23 Mari Carrion Mastercam ProgrammerSummer Law Associate 12/03/23 Chiquita 01/18/24 documented as of this encounter
--- OUTSIDE RECORDS SUMMARY | 2024-08-14 11:36 | XMS_ITS | Encounter Summary ---
Author Organization [employer] Address 75 [facility] 7t [place] [address] Care Team Providers Care Supervisor Pullet Farm Name Role Phone Name, Henry BARTLETT Primary Care Provider [phone] Encounter Details Date Type Department Care Team (Late st Contact Info) Description 10/23/2022 Abstract [facility] MEDICINE [address] [place] [address] [phone] Name, MD Henry [address] [place] [address] Social History Tobacco Use Types Packs/Day Years [...] Description 10/01/2024 10:00 AM EDT Office Visit [facility] ADULT DENTAL 230 [place], [place] [phone] Nicholas Bararis 230 [place] [address] 11/18/2024 10:30 AM EDT Office Visit [facility] MEDICINE [address] [place] [address] Name, MD Henry [facility] [place] [id number] 11/27/2024 9:30 AM EDT Telemedicine [facility] [place] [address] Suni Rodriguez, RN documented as of this encounter Procedures Procedure Name Priority Date/Time Associated Diagnosis Comments COLONOSCOPY Routine 04/12/2020 10:05 AM EST documented in this encounter Results * Hm Colonoscopy (04/12/2020 10:05 AM EST) Colonoscopy Normal Normal Narrative Amina Stroud - 04/12/2020 10:05 AM EST Recommended 5 year follow up ([facility] us Historical Provider HEALTH MAINTENANCE Final Result documented in this encounter Visit Diagnoses Not on filedocumented in this encounter Additional Health Concerns Assessment Noted Time PHQ-9 Depression Total Score: 6 09/14/19 23 9:53 AM EDT documented as of this encounter Care Teams Supervisor Pullet Farm Relationship Specialty Start Date End Date Name, [place] [id number] PCP - General Family Medicine 08/19/15 Finn Galindo Supervisor Adult EducationManager Oracle 08/06/23 Mari Carrion Stripper Black And WhiteManager Oracle 12/03/23 Chiquita 01/18/24 documented as of this encounter
--- OUTSIDE RECORDS SUMMARY | 2024-08-14 11:36 | XMS_ITS | Encounter Summary ---
Author Organization [employer] Address 75 [facility] 7t [place] [address] Care Team Providers Care Linecasting Machine Keyboard Operator Name Role Phone Name, Henry BARTLETT Primary Care Provider [phone] Reason for Visit * Reason Onset Date Comments Medical Question 09/18/2022 Encounter Details Date Type Department Care Team ([facility] st Contact Info) Description 09/18/2022 Telephone [facility] 230 [place], [place] [phone] Name, MD Henry 230 [place] [address] Medical Question Social History Tobacco Use Types [...] a heart monitor Please contact pt at [phone] Belarusian Speaker documented in this encounter Plan of Treatment Upcoming Encounters Date Type Department Care Team (Late st Contact Info) Description 10/01/2024 10:00 AM EDT Office Visit [facility] ADULT [facility] [address] [place] [address] Clarisse Bar [address] [place] [address] 11/18/2024 10:30 AM EDT Office Visit [facility] [address] [place] [address] Name, MD Henry 230 [place] [address] 11/27/2024 9:30 AM EDT Telemedicine [facility] [address] [place] [address] Suni Rdoriguez, EDWARD documented as of this encounter Visit Diagnoses Not on filedocumented in this encounter Additional Health Concerns Assessment Noted Time PHQ-9 Depression Total Score: 6 09/14/19 23 9:53 AM EDT documented as of this encounter Care Teams Linecasting Machine Keyboard Operator Relationship Specialty Start Date End Date Name, MD Henry [address] [place] [address] PCP - General Family Medicine 08/19/15 Finn Galindo Flight Tower DispatcherSas Analyst 08/06/23 Mari Carrion Poleyard SupervisorSas Analyst 12/03/23 Chiquita 01/18/24 documented as of this encounter
--- OUTSIDE RECORDS SUMMARY | 2024-08-14 11:36 | XMS_ITS | Encounter Summary ---
Author Organization [employer] Address 75 [facility] 7t [place] [address] Care Team Providers Care Service Line Bus Cleaner Name Role Phone Name, Henry BARTLETT Primary Care Provider [phone] Reason for Visit * Reason Comments Med Refill Encounter Details Date Type Department Care Team (Late st Contact Info) Description 12/31/2022 Refill [facility] MEDICINE 230 [place], [place] [phone] Name, MD Henry 230 [place] [address] Social History Tobacco Use Types Packs/Day Years [...] [facility] 230 [place], [place] [phone] Clarisse Bar 230 [place] [address] 11/18/2024 10:30 AM EDT Office Visit [facility] Kishan [facility] [place] [address] Name, MD Henry Kishan [facility] [place] [address] 11/27/2024 9:30 AM EDT Telemedicine [address] [address] Suni Rodriguez, EDWARD documented as of this encounter Visit Diagnoses Not on filedocumented in this encounter Additional Health Concerns Assessment Noted Time PHQ-9 Depression Total Score: 6 09/14/19 23 9:53 AM EDT documented as of this encounter Care Teams Service Line Bus Cleaner Relationship Specialty Start Date End Date Name, MD Henry Kishan [facility] [place] [address] PCP - General Family Medicine 08/19/15 Finn Galindo Boner MeatExterminator Helper 08/06/23 Mari Carrion Segment Block LayerExterminator Helper 12/03/23 Chiquita 01/18/24 documented as of this encounter
--- OUTSIDE RECORDS SUMMARY | 2024-08-14 11:36 | XMS_ITS | Encounter Summary ---
Author Organization [employer] Address 75 [facility] 7t [place] [address] Care Team Providers Care Catholic Priest Name Role Phone Name, Henry BARTLETT Primary Care Provider [phone] Reason for Visit * Reason Onset Date Comments Medication Question 01/01/2023 pregabalin ( Lyrica) 50 MG capsule Encounter Details Date Type Department Care Team ([facility] st Contact Info) Description 01/01/2023 Telephone [facility] MEDICINE 230 [place], [place] [phone] Name, MD Henry 230 [place], [place] [phone] Medication Question (pregabalin (Lyrica) 50 MG capsule//) [...] to go back to100 mh. Patient speaks amharic. documented in this encounter Plan of Treatment Upcoming Encounters Date Type Department Care Team (Late st Contact Info) Description 10/01/2024 10:00 AM EDT Office Visit [facility] ADULT DENTAL [address] [place] [address] Clraisse Bar 230 [place] [address] 11/18/2024 10:30 AM EDT Office Visit [facility] MEDICINE [address] [place] [address] Name, MD Henry [address] [place] [address] 11/27/2024 9:30 AM EDT Telemedicine [facility] MEDICINE [address] [place] [address] Suni Rodriguez RN documented as of this encounter Visit Diagnoses Not on filedocumented in this encounter Additional Health Concerns Assessment Noted Time PHQ-9 Depression Total Score: 6 09/14/19 23 9:53 AM EDT documented as of this encounter Care Teams Catholic Priest Relationship Specialty Start Date End Date NameHenry MD [address] [place] [address] PCP - General Family Medicine 08/19/15 Finn Galindo Managed Security Sales ConsultantRelations Specialist 08/06/23 Mari Carrion Corporate Law SpecialistRelations Specialist 12/03/23 Chiquita 01/18/24 documented as of this encounter
--- OUTSIDE RECORDS SUMMARY | 2024-08-14 11:36 | XMS_ITS | Encounter Summary ---
Author Organization [employer] Address 75 [facility] 7t [place] [address] Care Team Providers Care Claims Configuration Analyst Name Role Phone Name, Henry BARTLETT Primary Care Provider [phone] Reason for Visit * Reason Comments Med Refill Encounter Details Date Type Department Care Team ([facility] st Contact Info) Description 11/25/2023 Refill [facility] 230 [place], [place] [phone] Name, MD Henry 230 [place], [place] [phone] Iron deficiency anemia, unspecified iron deficiency anemia [...] Description 10/01/2024 10:00 AM EDT Office Visit [facility] ADULT DENTAL [address] [place] [address] Clarisse Bar [address] [place] [address] 11/18/2024 10:30 AM EDT Office Visit [facility] MEDICINE [address] [place] [address] Name, MD Henry [address] [place] [address] 11/27/2024 9:30 AM EDT Telemedicine [facility] [address] [place] [address] Suni Rodriguez RN documented as of this encounter Visit Diagnoses Diagnosis Iron deficiency anemia, unspecified iron deficiency anemia type documented in this encounter Additional Health Concerns Assessment Noted Time PHQ-9 Depression Total Score: 6 09/14/19 23 9:53 AM EDT documented as of this encounter Care Teams Claims Configuration Analyst Relationship Specialty Start Date End Date Name, MD Henry [address] [place] [address] PCP - General Family Medicine 08/19/15 Finn Galindo Service CleanerIntegration Manager 08/06/23 Mari Carrion Rice Cleaning Machine TenderIntegration Manager 12/03/23 [id number] 01/18/24 documented as of this encounter
--- OUTSIDE RECORDS SUMMARY | 2024-08-14 11:36 | XMS_ITS | Encounter Summary ---
Author Organization [employer] Address 75 [facility] 7t [place] [address] Care Team Providers Care Underground Conduit Installer Name Role Phone Name, Henry BARTLETT Primary Care Provider [phone] Reason for Visit * Reason Onset Date Comments Results 10/22/2023 Encounter Details Date Type Department Care Team ([facility] st Contact Info) Description 10/22/2023 Telephone [facility] MEDICINE 230 [place], [place] [phone] Name, MD Henry [address] [place] [address] Results Social History Tobacco Use Types Packs/Day [...] and Urine Date when done: 10/15 Facility: [facility] documented in this encounter Plan of Treatment Upcoming Encounters Date Type Department Care Team (Late st Contact Info) Description 10/01/2024 10:00 AM EDT Office Visit [facility] ADULT DENTAL [address] [place] [address] Clarisse Bar 230 [place] [address] 11/18/2024 10:30 AM EDT Office Visit [facility] MEDICINE [address] [place] [address] Name, MD Henry [address] [place] [address] 11/27/2024 9:30 AM EDT Telemedicine [facility] MEDICINE [address] [place] [address] Suni Rodriguez RN documented as of this encounter Visit Diagnoses Not on filedocumented in this encounter Additional Health Concerns Assessment Noted Time PHQ-9 Depression Total Score: 6 09/14/19 23 9:53 AM EDT documented as of this encounter Care Teams Underground Conduit Installer Relationship Specialty Start Date End Date Name, MD Henry [address] [place] [address] PCP - General Family Medicine 08/19/15 Finn Galindo Travel DirectorManager Relocation 08/06/23 Mari Carrion Ultrasonic Seaming Machine OperatorManager Relocation 12/03/23 Chiquita 01/18/24 documented as of this encounter
--- OUTSIDE RECORDS SUMMARY | 2024-08-14 11:36 | XMS_ITS | Clinical Summary ---
Author Organization [employer] Address [address] [facility] 7t [place] [address] Care Team Providers Care Hrbp Name Role Phone Name, Henry BARTLETT Primary Care Provider [phone] Allergies Active Allergy Reactions Criticality Noted Date Comments Celecoxib 05/23/2022 Other reaction(s): GI UPSET Ibuprofen Unknown 10/21/2015 Other reaction(s): gi upset Iodinated Contrast Media 05/23/2022 Other reaction(s): anaphylactic shock Iodine Unknown 10/21/2015 Pineapple Itching 12/04/2022 Medications * This document contains information received from the source organization and may not represent a complete record from that organization. Umeclidinium [place] (Incruse Ellipta) 62.5 MCG/ACT aerosol powder Inhale [...] polyneuropathy associated with type 2 diabetes mellitus ([facility]) TEST BLOOD SUGAR THREE TIMES DAILY 100 each 11 Active topiramate 50 MG tabletIndications :Migraine without status migrainosus, not intractable, unspecified migraine type TAKE 1 TABLET BY MOUTH TWICE DAILY IN THE MORNING AND AT BEDTIME 60 tablet 11 Active nicotine (Nicoderm, Step 2) 14 MG/24HR [...] by mouth in the morning. 90 tablet 1 Active losartan (Cozaar) 50 MG tabletIndications :Hypertension, unspecified type Take 1 tablet (50 mg) by mouth Once per day. 90 tablet 3 024 2024 Active famotidine (Pepcid) 20 MG tabletIndications :Heartburn TAKE 1 TABLET BY MOUTH AT BEDTIME 90 tablet 3 Active fluticasone (Flonase) 50 MCG/ACT nasal sprayIndications: Chronic bronchitis, unspecified chronic bronchitis type ([facility]) USE 2 SPRAYS IN EACH NOSTRIL ONCE DAILY DIRECTED 48 g Active lidocaine (Lidoderm) 5 % patch APPLY 1 PATCH TOPICALLY TO SKIN, LEAVE ON FOR 12 HOURS AND OFF FOR 12 HOURS DIRECTED Active insulin detemir (Levemir) 100 UNIT/ML injectionIndicati ons:Type 2 diabetes mellitus with other specified complication, with long-term current use of insulin ([facility]) Inject 30 Units under the skin Once daily. 10 mL 024 2024 Active ferrous gluconate (Fergon) 324 (38 Fe) MG tabletIndications :Iron deficiency anemia, unspecified iron deficiency anemia type 1 tab in the morning with breakfast 90 tablet Active Fluticasone Furoate-Vilantero l (Breo Ellipta) 100-25 MCG/ACT aerosol powder Inhale 1 Inhalation Once daily. Active traZODone (Desyrel) 100 MG tablet Take 1 tablet (100 mg) by mouth at bedtime. Active Azelastine HCl 137 MCG/SPRAY solutionIndicatio ns:Chronic [...] 1 hour prior dental procedure 12 capsule Active lactulose (Chronulac) 10 GM/15ML solution TAKE 15mls BY MOUTH EVERY DAY 450 mL 5 Active albuterol (Ventolin HFA) 108 (90 Base) MCG/ACT inhalerIndication s:Short of breath on exertion Inhale 2 puffs every 6 (six) hours if needed for wheezing. 18 g 11 Active SUMAtriptan (Imitrex) 100 MG tabletIndications :Migraine without status migrainosus, not intractable, unspecified migraine type TAKE 1 TABLET BY MOUTH AT ONSET OF MIGRAINE. MAY REPEAT ONCE AFTER 2 HOURS IF NEEDED 10 tablet 2 Active insulin syringe-needle U-100 (UltiCare Insulin Syringe) 31G X 5/16 1 mL misc Use as instructed 100 each 5 025 Active FREESTYLE LITE test stripIndications: Type 2 diabetes mellitus with other specified complication, with long-term current use of insulin (CMS/HCC) TEST BLOOD SUGAR THREE TIMES DAILY 50 strip 11 025 Active atorvastatin (Lipitor) 20 MG tabletIndications :Hypercholesterol emia TAKE 1 TABLET BY MOUTH EVERY MORNING 90 tablet 1 025 Active riboflavin (vitamin B2) 100 mg tablet tabletIndications :Hypercholesterol emia TAKE 4 TABLETS BY MOUTH EVERY MORNING 360 tablet 1 025 Active Aspirin Low Dose 81 MG chewable tablet TAKE 1 TABLET BY MOUTH EVERY MORNING (CHEW) 90 tablet 1 025 Active metFORMIN (Glucophage) 500 MG tabletIndications :Type 2 diabetes mellitus with other specified complication, with long-term current use of insulin ([facility]) TAKE 1 TABLET BY MOUTH TWICE DAILY IN THE MORNING AND IN THE EVENING WITH FOOD 180 tablet 3 025 Active albuterol (2.5 MG/3ML) 0.083% nebulizer solution INHALE 1 AMPULE USING A NEBULIZER EVERY 6 HOURS NEEDED FOR WHEEZING 360 mL 3 025 Active pregabalin (Lyrica) 100 MG capsuleIndication s:Diabetic polyneuropathy associated with type 2 diabetes mellitus ([facility]/HCC) TAKE 1 CAPSULE BY MOUTH THREE TIMES DAILY IN THE MORNING, EVENING, AND BEDTIME 90 capsule 025 Active oxyCODONE-acetami nophen (Percocet) 7.5-325 MG tabletIndications :Chronic pain syndrome TAKE 1 TABLET BY MOUTH EVERY 8 HOURS NEEDED FOR SEVERE PAIN 84 tablet 025 Active tamsulosin (Flomax) 0.4 MG 24 hr capsule TAKE 1 CAPSULE BY MOUTH EVERY EVENING 90 capsule 1 025 Active metFORMIN (Glucophage) 500 MG tabletIndications :Type 2 diabetes mellitus with other specified complication, with long-term current use of insulin ([facility]) TAKE 1 TABLET BY MOUTH TWICE DAILY IN THE MORNING AND IN THE EVENING WITH FOOD 180 tablet 3 024 2024 Discontinued Aspirin Low Dose 81 MG chewable tablet TAKE 1 TABLET BY MOUTH EVERY MORNING 90 tablet 1 024 2024 Discontinued riboflavin (vitamin B2) 100 mg tablet tabletIndications :Hypercholesterol emia TAKE 4 TABLETS BY MOUTH EVERY MORNING 360 tablet 1 024 2024 Discontinued atorvastatin (Lipitor) 20 MG tabletIndications :Hypercholesterol emia TAKE 1 TABLET BY MOUTH EVERY MORNING 90 tablet 1 024 2024 Discontinued albuterol (2.5 MG/3ML) 0.083% nebulizer solution Take 3 mL (2.5 mg) by nebulization every 6 (six) hours if needed for wheezing. 360 mL 3 024 2024 Discontinued tamsulosin (Flomax) 0.4 MG 24 hr capsule TAKE 1 CAPSULE BY MOUTH EVERY EVENING 90 capsule 025 2024 Discontinued(R eorder (will [...] to 28 days. Do not start before July 15, 2024. 84 tablet 025 2024 Discontinued Active Problems Problem Noted Date Diagnosed Date Abdominal hernia without obstruction and without gangrene 07/29/2024 Dental plaque 04/01/2024 Generalized gingival recession 04/01/2024 [...] Encounters Date Type Department Care Team Description 08/13/2024 Refill [facility] [address] [place] [address] Henry Bernardo MD 08/11/2024 Refill [facility] [address] [place] [address] Henry Bernardo MD Chronic pain syndrome 08/07/2024 Telephone [facility] [address] [place] [address] [phone] Yu Baker MA october recalls 08/05/2024 Refill [facility] [address] [place] [address] Henry Bernardo MD Chronic pain syndrome 07/29/2024 10:45 AM EDT Office Visit [facility] [address] [place] [phone] Henry Bernardo MD Type 2 diabetes mellitus with other specified complication, with long-term current use of insulin ([facility]) (Primary Dx); Hypertension, unspecified type; Chronic bronchitis, unspecified chronic bronchitis type (CMS/HCC); Memory changes; Family history of dementia; Hair loss; Aortic valve stenosis, etiology of cardiac valve disease unspecified; Encounter for immunization 07/29/[address] [facility] [address] [place] [address] Henry Bernardo MD Diabetic polyneuropathy associated with type 2 diabetes mellitus (CMS/HCC) 07/29/2024 Telephone [facility] MEDIC[facility] [address] [place] [address] Henry Bernardo MD 07/29/2024 Travel 07/28/2024 Telephone [facility] MED[facility] [address] [place] [address] Yu Baker MA chart prep 07/26/2024 Refill [facility] [address] [place] [address] Yue Olsen NP 07/24/2024 Population Health Risk Score [facility] () Department [address] [place] [phone] Provider, Population Health Generic 07/22/2024 Refill [facility] [address] [place] [address] Henry Bernardo MD Hypercholesterolemia ; Type 2 diabetes mellitus with other specified complication, with long-term current use of insulin ([facility]) 07/13/2024 Refill [facility] [address] [place] [address] Henry Bernardo MD Chronic pain syndrome 07/10/2024 Refill [facility] [address] [place] [address] Henry Bernardo MD Type 2 diabetes mellitus with other specified complication, with long-term current use of insulin ([facility]) 07/09/2024 Refill [facility] [address] [place] [address] Henry Bernardo MD Chronic pain syndrome 06/30/2024 Refill [facility] [address] [place] [address] Henry Bernardo MD Diabetic polyneuropathy associated with type 2 diabetes mellitus (CMS/HCC) 06/26/2024 10:30 AM EST Telemedicine [facility] [address] [place] [address] Suni Rodriguez RN Chronic low back pain, unspecified back pain laterality, unspecified whether sciatica present 06/26/2024 Travel 06/26/2024 Telephone [facility] [address] [place] [address] Suni Rodriguez RN Recommend AUTOMATION DESIGN ENGINEER Tele Tier 2 06/18/2024 Refill [facility] [address] [place] [address] NameHenry MD 06/17/2024 Refill [facility] [address] [place] [address] NameHenry MD Chronic pain syndrome 06/11/2024 Refill [facility] [address] [place] [address] Name, MD Henry Migraine without status migrainosus, not intractable, unspecified migraine type 06/08/[address] [facility] [address] [place] [address] NameHenry MD Short of breath on exertion 05/26/[address] [facility] [address] [place] [address] Name, MD Henry Diabetic polyneuropathy associated with type 2 diabetes mellitus ([facility]) 05/18/2024 Refill [facility] [address] [place] [address] Melisa Li MD from Last 3 Months Immunizations Name Administration [...] Moderna Covid-19 Vaccine 12+ 06/16/2020,05/26/19 21 Novel [id number], preservative-free 05/20/2009 Pfizer Covid-19 Vaccine 12+ 07/29/2024,1 06/09/2022,02/28/2021,06/16,05/26/2020 Pfizer Covid-19 Vaccine 12+ Bivalent 07/09/2022 Pneumococcal [...] Sign Reading Time Taken Comments Blood Pressure 156/72 07/29/2024 10:51 AM EDT Pulse 74 07/29/2024 10:51 AM EDT Temperature 36.2 ??C (97.1 ??F) 07/29/2024 10:51 AM E DT Respiratory Rate 14 07/29/2024 10:51 AM EDT Oxygen Saturation 97% 07/29/2024 10:51 AM EDT Inhaled Oxygen Concentration - - Weight 84.5 kg (186 lb 3.2 oz) 07/29/2024 10:51 AM EDT Height 162.6 cm (5' 4 ) 07/29/2024 10:51 AM EDT Body Mass Index 31.96 07/29/2024 10:51 AM EDT Plan of Treatment Upcoming Encounters Date Type Department Care Team (Late st Contact Info) Description 10/01/2024 10:00 AM EDT Office Visit [facility] [address] [place] [address] Clarisse Bar [address] [place] [address] 11/18/2024 10:30 AM EDT Office Visit [facility] [address] [place] [phone] Name, [place] [address] 11/27/2024 9:30 AM EDT Telemedicine [facility] [address] [place] [phone] Suni Rodriguez, RN Health Maintenance Due Date Last Done Comments [...] 09/13/2022, 09/14/19 23 SDOH Screening 09/14/2023 09/13/2022 Diabetes: Foot Exam 08/05/2024 08/06/2023, 08/06/2023, 04/09/2023, Additional history exists Dental Oral Exam 09/09/2024 03/10/2024, 05/2022, 05/23/2022 Dental Prophylaxis 09/30/2024 04/01/2024 Diabetes: Urine Protein Screening 10/15/2024 10/16/2023, 09/13/2022, 03/02/2020, Additional history exists Lipid Panel 10/15/2024 10/16/2023, 03/02/2020 Diabetes: Hemoglobin A1C 01/29/2025 025, 01/28/2024, 08/06/2023, Additional history exists Colonoscopy 04/12/2025 04/12/2020 Colorectal Cancer Screening 04/12/2025 Tobacco Screening 07/29/2025 07/29/2024 Eye Exam 09/10/2025 09/11/2023, 05/0 05/2023, 09/11/2023, [...] Completed 01/28/2024, , 07/09/2022, Additional history exists COVID-19 Vaccine Completed 07/29/2024, , 07/09/2022, Additional history exists HIB Vaccines [...] Procedure Name Priority Date/Time Associated Diagnosis Comments POCT GLYCATED HEMOGLOBIN, TOTAL Routine 07/29/2024 10:52 AM EDT Type 2 diabetes mellitus with other specified complication, with long-term current use of insulin ([facility]) POCT GLUCOSE Routine 07/29/2024 10:52 AM EDT Type 2 diabetes mellitus with other specified complication, with long-term current use of insulin ([facility]) PROPHYLAXIS - ADULT Routine 04/01/2024 1 1:00 AM EST Dental plaque Generalized gingival recession Missing teeth, acquired Xerostomia PANORAMIC RADIOGRAPHIC IMAGE Routine 03/10/2024 3:30 PM EDT Encounter for dental examination Dental caries Generalized gingival recession PERIODIC ORAL EVALUATION - ESTABLISHED PATIENT Routine 03/10/2024 3:30 PM EDT Encounter for dental examination Dental caries Generalized gingival recession ALBUMIN, RANDOM URINE W/CREATININE Routine 10/16/2023 9:50 [...] Recently Relevant to Health Maintenance Results * POCT HGB A1C (07/29/2024 10:52 AM EDT) Hemoglobin A1C 5.8 4.0 - 6.0 % QC Media Lot # [id number] Lot# Expiration Date ,42 Blood 07/29/2024 10:5 2 AM EDT us Henry Bernardo MD POINT OF CARE TEST ENTER/EDIT OR DERABLES Final Result * POCT Glucose (07/29/2024 10:52 AM EDT) Glucose Blood, POC 161 60 - 200 mg/dL QC Media Lot # [id number] Lot# Expiration Date [id number] Blood Capillary blood specimen / Unknown 07/29/2024 10:52 AM EDT us Henry Bernardo MD POINT OF CARE TEST ENTER/EDIT OR DERABLES Final Result * Albumin, Random Urine W/Creatinine (10/16/2023 9:50 AM EDT) Creatinine, Urine 246.69 mg/dL [facility] Microalbumin Urine 39.0 mg/L H [facility] Microalbum Creatinine Ratio Ur 15.8 <30 ug/mg cr [facility] Comment:Albumin/Creatinine R atio Reference Ranges: Normal: < 30 ug/mg creatinine Microalbuminuria: 30 - 300 ug/mg creatinineClinical Albuminuria: > 300 ug/mg creatinine Urine (Urine, Random) 10/16/2023 9:50 AM EDT 10/16/2023 2:51 PM EDT us Henry Bernardo MD LAB URINE ORDERABLES Final Resul t [facility] [address] [place] [phone] * (ABNORMAL) Lipid Panel, Standard (10/16/2023 9:45 AM EDT) Triglycerides 220(H) <150 mg/dL [facility] Comment:Desirable Triglyceri de: less than 150 mg/dLBorderline High Triglyceride 150-199 mg/dLHigh Triglyceride: 200-499 mg/dLVery High Triglyceride: greater than or equal to 5OO mg/dL Cholesterol 163 <200 mg/dL [facility] Comment:Desirable Cholestero l: less than 200 mg/dLBorderline High Cholesterol: 200-239 mg/dLHigh Cholesterol: greater than 239 mg/dL LDL Cholesterol Calculated 81 <100 mg/dL [facility] Comment:Desirable LDL: less than 100 mg/dLNear Optimal/Above Optimal LDL: 110- 129 mg/dLBorderline High LDL: 130-159 mg/dLHigh LDL: 160-189 mg/dLVery High LDL: greater than or equal to 190 mg/dL HDL Cholesterol 38(L) >40 mg/dL [facility] Comment:Desirable HDL: great er than 40 mg/dL Note: This HDL assay may give artificially low results in patients with liver disease. Blood Venous blood specimen / Unknown 10/16/2023 9:45 AM EDT 10/16/2023 3:01 PM EDT us Henry Bernardo MD LAB BLOOD ORDERABLES Final Resul t [facility] [address] [place] [address] [phone] * Mammography Report 1 (05/31/2021 12:50 PM EST) Anatomical Region Laterality Modality Breast Bilateral Mammography 05/31/2021 12:5 0 PM EST Narrative 06/01/2021 11:03 AM EST Refer to the Notes tab for result details [facility] Procedure: Mammography Report 1 Procedure Note Provider, MD Eric - 08/05/2022 Refer to the Notes tab for result details [facility] Procedure: Mammography Report 1 us Henry Bernardo MD IMG BI PROCEDURES Final Result * HIV 1/2 ANTIGEN/ANTIBODY,FOURTH GENERATION W/RFL (01/30/2021 9:42 AM EDT) HIV-1/2 ANTIGEN AND ANTIBODIES, 4TH GENERATION W/ REFLEX NON-REACT NAVID NON-REACT NAVID [facility] Comment: HIV-1 antigen and HIV-1/HIV-2 [...] ? For additional information please refer to http://education.TransGaming.Rockerbox/faq/VND849 (This link is being provided for informational/ educational purposes only.) ? The performance of this assay has not been clinically validated in patients less than 2 years old. ?? 01/30/2021 9:42 AM EDT us Sheyla Faith PICKER PACKER LAB BLOOD ORDERABLES Final Res ult [facility] Critical access hospital [address] * Colonoscopy (04/12/2020 10:05 AM EST) Colonoscopy Normal Normal Narrative Amina Stroud - 04/12/2020 10:05 AM EST Recommended 5 year [place] Historical Provider MD HEALTH MAINTENANCE Final Result from Last 3 Months or Most Recently Relevant to Health Maintenance Insurance C[facility] MEDICAID STAND ADULT Care Teams Hrbp Relationship Specialty Start Date End Date Name, MD Henry [address] [place] [phone] PCP - General Family Medicine 08/19/15 Finn Galindo Lead Tank MechanicSalvation Army Officer 08/06/23 Mari Carrion Chief Talent OfficerSalvation Army Officer 12/03/23 Chiquita 01/18/24
--- OUTSIDE RECORDS SUMMARY | 2024-08-14 11:36 | XMS_ITS | Encounter Summary ---
Author Organization [employer] Address [address] [facility] 7t [place] [address] Care Team Providers Care Bulk Pigment Reducer Name Role Phone Name, Henry BARTLETT Primary Care Provider [phone] Reason for Visit * Reason Comments Med Refill Encounter Details Date Type Department Care Team (Late st Contact Info) Description 09/17/2022 Refill [facility] [address] [place], [place] [phone] Name, MD Henry [address] [place] [address] Social History Tobacco Use Types Packs/Day Years [...] Description 10/01/2024 10:00 AM EDT Office Visit [facility] ADULT D[facility]AL [address] [place] [address] Dipika Clarisse [address] [place] [address] 11/18/2024 10:30 AM EDT Office Visit [address] [address] Name, MD Henry [address] [place] [address] 11/27/2024 9:30 AM EDT Telemedicine [address] [address] Suni Rodriguez, EDWARD documented as of this encounter Visit Diagnoses Not on filedocumented in this encounter Additional Health Concerns Assessment Noted Time PHQ-9 Depression Total Score: 6 09/14/19 23 9:53 AM EDT documented as of this encounter Care Teams Bulk Pigment Reducer Relationship Specialty Start Date End Date Name, MD Henry [address] [place] [phone] PCP - General Family Medicine 08/19/15 Finn Galindo Zipper Machine OperatorPsychological Examiner 08/06/23 Mari Carrion Assistant Field Hockey CoachPsychological Examiner 12/03/23 Chiquita 01/18/24 documented as of this encounter
--- OUTSIDE RECORDS SUMMARY | 2024-08-14 11:36 | XMS_ITS | Encounter Summary ---
Author Organization [employer] Address [address] [facility] [address]t [place] [address] Care Team Providers Care Oil Prospecting Observer Name Role Phone Name, Henry BARTLETT Primary Care Provider [phone] Reason for Visit * Reason Comments Med Refill Encounter Details Date Type Department Care Team ([facility] st Contact Info) Description 04/30/2024 Refill [facility] MED[facility] [address] [place], [place] [phone] Yue Olsen, LEPIDOPTERIST [address] [place], [place] [phone] COPD exacerbation (CMS/HCC) Social History Tobacco Use [...] Description 10/01/2024 10:00 AM EDT Office Visit [facility] ADULT DENTAL [address] [place] [phone] Clarisse Bar [address] [place] [address] 11/18/2024 10:30 AM EDT Office Visit [facility] MEDICINE [address] [place] [address] Name, MD Henry [address] [place] [phone] 11/27/2024 9:30 AM EDT Telemedicine [facility] [address] [place] [phone] Suni Rodriguez, EDWARD documented as of this encounter Visit Diagnoses Diagnosis COPD exacerbation ([facility]) Obstructive chronic bronchitis with exacerbation documented in this encounter Additional Health Concerns Assessment Noted Time PHQ-9 Depression Total Score: 6 09/14/19 23 9:53 AM EDT documented as of this encounter Care Teams Oil Prospecting Observer Relationship Specialty Start Date End Date Name, MD Henry [address] [place] [phone] PCP - General Family Medicine 08/19/15 Finn Galindo Theatre ProfessorBackend Java Developer 08/06/23 Mari Carrion Manager HousekeepingBackend Java Developer 12/03/23 [id number] 01/18/24 documented as of this encounter
--- OUTSIDE RECORDS SUMMARY | 2024-08-14 11:36 | XMS_ITS | Encounter Summary ---
Author Organization [employer] Address [address] [facility] 7t [place] [address] Care Team Providers Care Baseball Coach Name Role Phone Name, Henry BARTLETT Primary Care Provider [phone] Reason for Visit * Reason Onset Date Comments FYI 12/17/2023 Encounter Details Date Type Department Care Team ([facility] st Contact Info) Description 12/17/2023 Telephone [facility] MEDICINE [address] [place], [place] [phone] Name, MD Henry [address] [place] [address] FYI Social History Tobacco Use Types Packs/Day [...] pt is being seen at is the [facility] ([address] [place] [phone]) Rehab documented in this encounter Plan of Treatment Upcoming Encounters Date Type Department Care Team ([facility] st Contact Info) Description 10/01/2024 10:00 AM EDT Office Visit [facility] ADULT DENTAL [address] [place] [address] [phone] Clarisse Bar [address] [place] [address] 11/18/2024 10:30 AM EDT Office Visit [facility] MEDICINE [address] [place] [phone] Name, MD Henry [address] [place] [phone] 11/27/2024 9:30 AM EDT Telemedicine [facility] MEDICINE [address] [place] [address] Suni Rodriguez, RN documented as of this encounter Visit Diagnoses Not on filedocumented in this encounter Additional Health Concerns Assessment Noted Time PHQ-9 Depression Total Score: 6 09/14/19 23 9:53 AM EDT documented as of this encounter Care Teams Baseball Coach Relationship Specialty Start Date End Date Name, MD Henry [address] [place] [address] PCP - General Family Medicine 08/19/15 Finn Galindo Supervisor Malt HouseDrawing Frame Tender 08/06/23 Mari Carrion Insulation Batting Machine OperatorDrawing Frame Tender 12/03/23 Chiquita 01/18/24 documented as of this encounter
--- OUTSIDE RECORDS SUMMARY | 2024-08-14 11:36 | XMS_ITS | Encounter Summary ---
Author Organization [employer] Address [address] [facility] 7t [place] [address] Care Team Providers Care Dry Clipper Tender Name Role Phone Name, Henry BARTLETT Primary Care Provider [phone] Reason for Visit * Reason Onset Date Comments Hospital Follow-up 01/10/2024 Encounter Details Date Type Department Care Team ([facility] st Contact Info) Description 01/10/2024 Telephone [facility] MEDICINE [address] [place], [place] [phone] Name, MD Henry [address] [place] [address] Hospital Follow-up Social History Tobacco Use Types [...] contact her directly. Please contact Melissa at [phone]. * Telephone Encounter - Ethan Suazo - 01/10/2024 4:16 PM EDT TC from Melissa ( daughter) stated pt will be discharging from [facility] after fall a few months ago . Discharge date : 01/15 documented in this encounter Plan of Treatment Upcoming Encounters Date Type Department Care Team (Late st Contact Info) Description 10/01/2024 10:00 AM EDT Office Visit [facility] ADULT DENTAL [address] [place] [address] Clarisse Bar [address] [place] [address] 11/18/2024 10:30 AM EDT Office Visit [facility] MEDICINE [address] [place] [address] Name, MD Henry [address] [place] [address] 11/27/2024 9:30 AM EDT Telemedicine [facility] MEDICINE [address] [facility] [place] [address] Suni Rodriguez RN documented as of this encounter Visit Diagnoses Not on filedocumented in this encounter Additional Health Concerns Assessment Noted Time PHQ-9 Depression Total Score: 6 09/14/19 23 9:53 AM EDT documented as of this encounter Care Teams Dry Clipper Tender Relationship Specialty Start Date End Date Name, MD Henry [address] [facility] [place] [address] PCP - General Family Medicine 08/19/15 Finn Galindo Speed Reading TeacherBelt Dresser 08/06/23 Mari Carrion Linux DeveloperBelt Dresser 12/03/23 Chiquita 01/18/24 documented as of this encounter
--- OUTSIDE RECORDS SUMMARY | 2024-08-14 11:36 | XMS_ITS | Encounter Summary ---
Author Organization [employer] Address 75 [facility] 7t [place] [address] Care Team Providers Care Commercial Appraiser Name Role Phone Name, Henry BARTLETT Primary Care Provider [phone] Reason for Visit * Reason Onset Date Comments Med Refill 08/13/2024 Encounter Details Date Type Department Care Team (Late st Contact Info) Description 08/13/2024 Refill [facility] [address] [place], [place] [phone] Name, MD Henry [address] [place] [address] Social History Tobacco Use Types Packs/Day Years [...] Telephone Encounter - Darlyn Michelle LPN - 08/13/2024 1:34 PM EDT Last seen 07/29/24. documented in this encounter Plan of Treatment Upcoming Encounters Date Type Department Care Team (Late st Contact Info) Description 10/01/2024 10:00 AM EDT Office Visit [facility] [address] [place] [address] Clarisse Bar [address] [place] [address] 11/18/2024 10:30 AM EDT Office Visit [facility] [address] [place] [address] Name, MD Henry [address] [place] [address] 11/27/2024 9:30 AM EDT Telemedicine [facility] [address] [place] [address] Suni Rodriguez RN documented as of this encounter Visit Diagnoses Not on filedocumented in this encounter Additional Health Concerns Assessment Noted Time PHQ-9 Depression Total Score: 6 09/14/19 23 9:53 AM EDT documented as of this encounter Care Teams Commercial Appraiser Relationship Specialty Start Date End Date Name, MD Henry [address] [place] [address] PCP - General Family Medicine 08/19/15 Finn Galindo Bag PrinterCopper Tapper 08/06/23 Mari Carrion Fan Mail EditorCopper Tapper 12/03/23 Chiquita 01/18/24 documented as of this encounter
--- OUTSIDE RECORDS SUMMARY | 2024-08-14 11:36 | XMS_ITS | Encounter Summary ---
Author Organization [employer] Address 75 [facility] 7t [place] [address] Care Team Providers Care Consumer Loan Underwriter Name Role Phone Name, Henry BARTLETT Primary Care Provider [phone] Reason for Visit * Reason Comments Med Refill Encounter Details Date Type Department Care Team (Late st Contact Info) Description 09/15/2022 Refill [facility] MEDICINE [address] [place] [address] Name, MD Henry [address] [place] [address] Chronic pain syndrome Social History Tobacco Use [...] Description 10/01/2024 10:00 AM EDT Office Visit [facility] ADULT DENTAL [address] [place] [address] Nicholas Bararis [address] [place] [address] 11/18/2024 10:30 AM EDT Office Visit [facility] MEDICINE [address] [place] [address] Name, MD Henry [address] [place] [address] 11/27/2024 9:30 AM EDT Telemedicine [facility] MEDICINE [address] [place] [address] Suni Rodriguez, EDWARD documented as of this encounter Visit Diagnoses Diagnosis Chronic pain syndrome documented in this encounter Additional Health Concerns Assessment Noted Time PHQ-9 Depression Total Score: 6 09/14/19 23 9:53 AM EDT documented as of this encounter Care Teams Consumer Loan Underwriter Relationship Specialty Start Date End Date Name, MD Henry [address] [place] [address] PCP - General Family Medicine 08/19/15 Finn Galindo Molder OperatorVinyl Installer 08/06/23 Mari Carrion CementerVinyl Installer 12/03/23 Chiquita 01/18/24 documented as of this encounter
--- OUTSIDE RECORDS SUMMARY | 2024-08-14 11:36 | XMS_ITS ---
Author Organization [employer] Address [address] [facility] 7t [place] [address] Care Team Providers Care Director Of Program Management Name Role Phone Name, Henry BARTLETT Primary Care Provider [phone] COUNTER MAKER Status:Enrolled (Active) Start date:06/14/2022 Enrollment date:06/14/2022 Enrollment reason:Identified using pharmacy data Current support & services provided:Tier 4 (COUNTER MAKER) Case Team Name Relationship Phone Suni Rodriguez RN Registered Nurse(Responsible Sta ff) Continued Care and Services Coordination
--- OUTSIDE RECORDS SUMMARY | 2024-08-14 11:36 | XMS_ITS | Encounter Summary ---
Author Organization [employer] Address 75 [facility] 7t [place] [address] Care Team Providers Care Mfts Name Role Phone Name, Henry BARTLETT Primary Care Provider [phone] Reason for Visit * Reason Comments Med Refill Encounter Details Date Type Department Care Team (Late st Contact Info) Description 01/25/2023 Refill [facility] MEDICINE [address] [place] [address] Name, MD Henry [address] [place] [address] Diabetic polyneuropathy associated with type 2 diabetes mellitus ([facility]) Social History Tobacco Use Types Packs/Day Years [...] 10/01/2024 10:00 AM EDT Office Visit [facility] ADULT DENTAL [address] [place] [address] Clarisse Bar [address] [place] [address] 11/18/2024 10:30 AM EDT Office Visit [address] [place] [address] [address] Name, MD Henry [address] [place] [address] 11/27/2024 9:30 AM EDT Telemedicine [address] [place] [address] [address] Suni Rodriguez, EDWARD documented as of this encounter Visit Diagnoses Diagnosis Diabetic polyneuropathy associated with type 2 diabetes mellitus (CMS/HCC) documented in this encounter Additional Health Concerns Assessment Noted Time PHQ-9 Depression Total Score: 6 09/14/19 9:53 AM EDT documented as of this encounter Care Teams Mfts Relationship Specialty Start Date End Date Name, MD Henry [address] [place] [address] PCP - General Family Medicine 08/19/15 Finn Galindo Weather AnchorMarketing Production Coordinator 08/06/23 Mari Carrion Cardiac TechnologistMarketing Production Coordinator 12/03/23 Chiquita 01/18/24 documented as of this encounter
--- OUTSIDE RECORDS SUMMARY | 2024-08-14 11:36 | XMS_ITS | Encounter Summary ---
Author Organization [employer] Address [address] [facility] 7t [place] [address] Care Team Providers Care Utilization Specialist Name Role Phone Name, Henry BARTLETT Primary Care Provider [phone] Encounter Details Date Type Department Care Team (Late st Contact Info) Description 11/01/2022 Orders Only [facility] MEDICINE [address] [place] [address] [phone] Haley Gardner LPN Social History Tobacco Use [...] Description 10/01/2024 10:00 AM EDT Office Visit [facility] ADULT DENTAL [address] [place] [address] [phone] Clarisse Bar [address] [place] [address] 11/18/2024 10:30 AM EDT Office Visit [facility] MEDICINE [address] [place] [address] Name, MD Henyr [address] [place] [address] 11/27/2024 9:30 AM EDT Telemedicine [facility] MEDICINE [address] [place] [address] Suni Rodriguez, RN documented as of this encounter Visit Diagnoses Not on filedocumented in this encounter Additional Health Concerns Assessment Noted Time PHQ-9 Depression Total Score: 6 09/14/19 23 9:53 AM EDT documented as of this encounter Care Teams Utilization Specialist Relationship Specialty Start Date End Date Name, MD Henry [address] [place] [address] PCP - General Family Medicine 08/19/15 Finn Galindo BartendersBiomedical Engineering Technician 08/06/23 Mari Carrion Lace Machine OperatorBiomedical Engineering Technician 12/03/23 Chiquita 01/18/24 documented as of this encounter
--- OUTSIDE RECORDS SUMMARY | 2024-08-14 11:36 | XMS_ITS | Encounter Summary ---
Author Organization [employer] Address 75 [facility] 7t [place] [address] Care Team Providers Care Python Engineer Name Role Phone Name, Henry BARTLETT Primary Care Provider [phone] Reason for Visit * Reason Comments Med Refill Encounter Details Date Type Department Care Team ([facility] st Contact Info) Description 07/09/2024 Refill [facility] MEDICINE [address] [place], [place] [phone] Name, MD Henry [address] [place] [address] Chronic pain syndrome Social History Tobacco Use [...] Description 10/01/2024 10:00 AM EDT Office Visit [facility] ADULT DENTAL [address] [place] [address] Clarisse Bar [address] [place] [address] 11/18/2024 10:30 AM EDT Office Visit [facility] MEDICINE [address] [place] [address] Name, MD Henry [address] [place] [address] 11/27/2024 9:30 AM EDT Telemedicine [address] [address] Suni Rodriguez, RN documented as of this encounter Visit Diagnoses Diagnosis Chronic pain syndrome documented in this encounter Additional Health Concerns Assessment Noted Time PHQ-9 Depression Total Score: 6 09/14/19 23 9:53 AM EDT documented as of this encounter Care Teams Python Engineer Relationship Specialty Start Date End Date Name, MD Henry [address] [place] [address] PCP - General Family Medicine 08/19/15 Finn Galindo Back End DeveloperGeneral Superintendent 08/06/23 Mari Carrion Flat KnitterGeneral Superintendent 12/03/23 Chiquita 01/18/24 documented as of this encounter
--- OUTSIDE RECORDS SUMMARY | 2024-08-14 11:36 | XMS_ITS | Clinical Summary ---
Author Organization [address] [place] [address] [place] [phone] Phone Care Team Providers Care Data Communications Analyst Name Role Phone Name, Henry BARTLETT Primary Care Provider [phone] Encounters Date Type Department Care Team Description 05/19/2024 8:08 AM EST - 05/19/2024 11:59 PM EST Hospital Encounter [facility] [address] [place] [phone] Pain Discharge Disposition: Home or Self Care from Last 3 Months Immunizations Name Administration Dates Next Due [employer] SARS-CoV-2 COVID-19, mRNA, LNP-S, preservative free 02/28/2021,06/16/2020,05/26/2020 Surgical History Surgery Date Site/Laterality Comments KNEE ARTHROSCOPY PROCEDURE: NM ARTHROSCOPY AID TX SPINE&/FX KNEE W/O FIXJ HYSTERECTOMY PROCEDURE: HISTORICAL HYSTERECTOMY HERNIA REPAIR PROCEDURE: HISTORICAL HERNIA REPAIR/ING CHOLECYSTECTOMY PROCEDURE: HISTORICAL CHOLECYSTECTOMY ESOPHAGOGASTRODUODENOSCOPY 2002? PROCEDURE: NM ESOPHAGOGASTRODUODENOSCOPY TRANSORAL DIAGNOSTIC; COMMENT: h pylori gatritis? COLONOSCOPY 2004 PROCEDURE: NM COLONOSCOPY FLX DX W/COLLJ SPEC WHEN PFRMD; COMMENT: normal? (done for evaluation of rectal bleeding) ESOPHAGOGASTRODUODENOSCOPY 09/20/2009 PROCEDURE: NM EGD TRANSORAL BIOPSY SINGLE/MULTIPLE; COMMENT: Esophagus normal, bilious fluid in the stomach, antral gastritis-biopsy:mild reactive gastropathy (HPylori-), normal SB TOTAL KNEE ARTHROPLASTY PROCEDURE: HISTORICAL TOTAL KNEE REPLACE; COMMENT: both knees (2010 and 2009) SINUS SURGERY 2010 PROCEDURE: NM UNLISTED PROCEDURE ACCESSORY SINUSES; COMMENT: date approximate; [...] Vaccines (1 of 2) 11/27/2009 RSV Immunization Adult Patients (1 - Risk 60-74 years 1-dose series) [...] Documents on File Type Date Recorded Patient Scientist Expl anation Health Care Decision (hx) 12/04/2023 AD DONOVAN DIRECTIVE Health Care Decision (hx) 11/11/2023 AD DONOVAN DIRECTIVE Health Care Decision (hx) 11/11/2023 AD DONOVAN DIRECTIVE Health Care Decision (hx) 11/11/2023 AD DONOVAN DIRECTIVE Care Teams Data Communications Analyst Relationship Specialty Start Date End Date Name, MD Henry [address] [place] [address] PCP - General Internal Medicine 12/05/15
--- OUTSIDE RECORDS SUMMARY | 2024-08-14 11:36 | XMS_ITS | Encounter Summary ---
Author Organization [employer] Address [address] [facility] 7t [place] [address] Care Team Providers Care Cleater Name Role Phone Name, Henry BARTLETT Primary Care Provider [phone] Reason for Visit * Reason Comments Med Refill Encounter Details Date Type Department Care Team (Late st Contact Info) Description 11/19/2022 Refill [facility] MEDICINE [address] [place], [place] [phone] Name, MD Henry [address] [place] [address] Chronic pain syndrome Social History Tobacco Use [...] 10/01/2024 10:00 AM EDT Office Visit [facility] ADULT DENTAL [address] [place] [address] Clarisse Bar [address] [place] [address] 11/18/2024 10:30 AM EDT Office Visit [address] [address] Name, MD Henry [address] [place] [address] 11/27/2024 9:30 AM EDT Telemedicine [address] [phone] Suni Rodriguez RN documented as of this encounter Visit Diagnoses Diagnosis Chronic pain syndrome documented in this encounter Additional Health Concerns Assessment Noted Time PHQ-9 Depression Total Score: 6 09/14/19 23 9:53 AM EDT documented as of this encounter Care Teams Cleater Relationship Specialty Start Date End Date Name, MD Henry [address] [place] [address] PCP - General Family Medicine 08/19/15 Finn Galindo Crust SorterIndustrial Designer 08/06/23 Mari Carrion Branch Service LeaderIndustrial Designer 12/03/23 Chiquita 01/18/24 documented as of this encounter
--- OUTSIDE RECORDS SUMMARY | 2024-08-14 11:36 | XMS_ITS | Encounter Summary ---
Author Organization [employer] Address [address] [facility] 7t [place] [address] Care Team Providers Care Parking Ramp Attendant Name Role Phone Name, Henry BARTLETT Primary Care Provider [phone] Reason for Visit * Reason Onset Date Comments Prior Authorization 09/18/2023 Encounter Details Date Type Department Care Team ([facility] st Contact Info) Description 09/18/2023 Telephone [facility] MEDICINE [address] [place], [place] [phone] Name, MD Henry [address] [place] [address] Prior Authorization Social History Tobacco Use Types [...] 100 MG capsule unsure if medication needed PA.Dupligraph Operator spoke with pharmacy in which they stated medication needs a PA renewal. documented in this encounter Plan of Treatment Upcoming Encounters Date Type Department Care Team (Late st Contact Info) Description 10/01/2024 10:00 AM EDT Office Visit [facility] ADULT DENTAL [address] [place] [address] Clarisse Bar [address] [place] [address] 11/18/2024 10:30 AM EDT Office Visit [facility] MEDICINE [address] [place] [address] Name, MD Henry [address] [place] [address] 11/27/2024 9:30 AM EDT Telemedicine [facility] MEDICINE [address] [place] [address] Suni Rodriguez, RN documented as of this encounter Visit Diagnoses Not on filedocumented in this encounter Additional Health Concerns Assessment Noted Time PHQ-9 Depression Total Score: 6 09/14/19 23 9:53 AM EDT documented as of this encounter Care Teams Parking Ramp Attendant Relationship Specialty Start Date End Date Name, MD Henry [address] [place] [address] PCP - General Family Medicine 08/19/15 Finn Galindo Financial Planning AdvisorPowder And Primer Canning Leader 08/06/23 Mari Carrion LinotypistPowder And Primer Canning Leader 12/03/23 Chiquita 01/18/24 documented as of this encounter
[2024-08-14 14:06] LABS: MANUAL DIFF FLAG NO
[2024-08-14 14:11] LABS: Basophils Percent Auto 0.7 % (0-2); Eosinophils Absolute Auto 0.1 X10*3/uL (0.0-0.4); Eosinophils Percent Auto 1.6 % (0-4); Hematocrit 36.6 % (37.0-47.0); Imm Gran Abs Auto 0.02 X10*3/uL (0.00-0.03); Imm Gran Pct Auto 0.4 % (0.0-0.4); Lymphocytes Absolute Auto 1.9 X10*3/uL (1.2-4.9); Lymphocytes Percent Auto 32.7 % (20-40); Mean Corpuscular HGB Conc 30.1 g/dl (31.0-35.0); Mean Corpuscular Hemoglobin 26.6 pg (27.0-33.0); Mean Corpuscular Volume 88.6 fL (80.0-98.0); Mean Platelet Volume 11.9 fL (9.4-12.3); Monocytes Absolute Auto 0.4 X10*3/uL (0.1-1.2); Monocytes Percent Auto 7.2 % (2-11); Neutrophils Absolute Auto 3.3 x10*3/uL (2.0-8.3); Neutrophils Percent Auto 57.4 % (45-73); Platelet Count 182 X10*3/uL (160-400); Red Blood Count 4.13 X10*6/uL (4.20-5.50); Red Cell Distribution Width 14.9 % (11.0-16.0); White Blood Count 5.7 X10*3/uL (4.8-10.8)
[2024-08-14 14:53] LABS: Alanine Aminotransferase 26 U/L (0-31); Albumin Level 4.3 g/dL (3.5-5.0); Alkaline Phosphatase 70 U/L (39-117); Anion Gap 12 (12-20); Aspartate Amino Transferase 28 U/L (5-31); Bilirubin Total 0.3 mg/dL (0.0-1.0); Blood Urea Nitrogen 19 mg/dL (9-16); Calcium 9.6 mg/dL (8.4-10.2); Carbon Dioxide 24 mmol/L (22-29); Chloride 113 mmol/L (96-108); Estimated Glomerular Filt Rate 47; Glucose Random 123 mg/dL (60-115); Potassium 5.2 mmol/L (3.3-5.1); Sodium 144 mmol/L (135-145); TSH reflex Free T4 1.27 uIU/mL (0.32-4.0); Total Protein 7.6 g/dL (6.5-8.0)
[2024-08-14 15:00] LABS: Folate 14.5 ng/mL (> or = 4.0); Vitamin B12 1258 pg/mL (200-900)
[2024-08-17 11:09] LABS: RPR Rapid Plasma Reagin NON-REACTIVE (NON-REACTIVE)
== END 2024-08-14 10:12 | disposition home or self-care (01) ==
LOC: HO.CHCLDS 10:11
PROVIDERS: Visit Provider Internal Medicine Geriatric Medicine
DX: R41.3 Other amnesia (principal); L65.9 Nonscarring hair loss, unspecified
CPT/HCPCS: 36415; 80053; 82607; 82746; 84443; 85025; 86592

== ENCOUNTER 2024-09-25 12:47 | Outpatient (REF) | payer MEDICAID, SELFPAY ==
--- NOTE | ~2024-09-25 | CT_ITS ---
CLINICAL HISTORY: Memory problems CT Brain without contrast Comparison: CT/SR - CT HEAD/BRAIN WO IV CON - 12/21/23 21:05 EDT FINDINGS: Cortical sulci: There is diffuse prominence of the cortical sulci compatible with age-related atrophy. Ventricles: Normal for age Brain parenchyma: There is patchy lucency throughout the deep white matter indicating chronic microvascular leukomalacia. Extra axial spaces: Normal Posterior Fossa: Normal Extracranial soft tissues: Normal Additional abnormality: None IMPRESSION: Age-related atrophy with chronic microvascular leukomalacia. No hemorrhage, mass effect, or acute findings identified. This document has been electronically signed by: Pb Castro MD on 09/29/2024 12:59:36
--- OUTSIDE RECORDS SUMMARY | 2024-09-25 12:49 | XMS_ITS | Data Portability ---
Author Organization [facility] Cue [facility], Main Office Address [address] [facility], [address] [place] [address] Care Team Providers Care Refrigerator Car Icer Name Role Phone ROSEANN VAZQUEZ - 2ND FLOOR OTHER NAME, SAMEER Primary Care Provider [phone] Assessment Encounter Date Assessment Date Assessment LastModified by Organization Details LastModified Time 01/02/2024 01/02/2024 Spent 30 reviewing records, seeing pt, consulting with staff and documenting [email or web address] Not available 01/02/2024 20:36:57 01/09/2024 01/09/2024 Spent 30 reviewing records, seeing pt, consulting with staff and documenting [email or web address] Not available 01/09/2024 13:17:39 01/15/2024 01/15/2024 spent [...] Recorded Time Open fracture of left tibia [id number] 9105 Active 2023 Juliet Whittaker NP [address] [facility], [address], [place], [address], [facility] 4 14:31:24 Insulin treated type 2 diabetes mellitus 781461457 Active 2023 Juliet Whittaker NP [address] [facility], [address], [place], [address], [facility] Mobile Location, IP [facility] 4 14:31:36 Smoker 31219332 Active 2023 Juliet Whittaker NP [address], [place], [address], [facility] Mobile Location, IP [facility] 4 14:31:04 Hypertensiv e disorder 93984216 Active 2023 Juliet Whittaker NP [address], [place], [address], [facility] Mobile Location, IP [facility] 4 14:31:42 Hyperlipide jessica 90788794 Active 2023 Juliet Whittaker NP [address], [place], [address], [facility] Mobile Location, IP [facility] 4 14:31:08 Asthma 431669224 Active 2023 Juliet Whittaker NP [address], [place], [address], [facility] Mobile Location, IP [facility] 4 14:31:29 Gastroesoph ageal reflux disease without esophagitis 342896754 Active 2023 Juliet Whittaker NP [address], [place], [address], [facility] Mobile Location, IP [facility] 4 14:30:48 Depressive disorder 16282067 Active 2023 Juliet Whittaker NP [address], [place], [address], [facility] Mobile Location, IP [facility] 4 14:30:37 Migraine 85959917 Active 2023 Juliet Whittaker NP [address], [place], [address], [facility] Mobile Location, IP [facility] 4 14:30:45 Chronic pain 24483261 Active 2023 Juliet Whittaker NP [address], [place], [address], [facility] Mobile Location, IP [facility] 4 14:30:20 Delirium 6269543 Active 2023 Juliet Whittaker NP [address], [place], [address], [facility] 4 14:30:17 Anemia 895407188 Active 2023 Juliet Whittaker NP [address] [facility] [address], [place], [address], [facility] 4 14:30:42 Chronic constipatio n 421339472 Active 2023 Juliet Whittaker NP [address] [facility] [address], [place], [address], [facility] 4 14:30:09 Itching 250837293 Active 2023 Shantelle Henderson MD [address] [address], [place], [address], [facility] 4 20:36:29 Problem Notes None recorded. Medical Equipment None Reported. Allergies Allergen ID Allergen Name Allergen Category Reaction Reaction Severity Criticality Documentation Date Start Date Code Code System Note Provider Name and Address Organization Details Recorded Time 88942 ibuprofen medicatio n Not available Not available Not available 11/13/2023 5640 RxNorm SPIKE CARRILLO NP [address] [address], [place], [address], [facility] 4 15:12:37 31077 iodine medicatio n Not available Not available Not available 11/13/2023 5933 RxNorm SPIKE CARRILLO NP [address] [address], [place], [address], [facility] 4 15:12:44 Medications Name Sig Start Date Stop Date [...] mm[Hg] 77 mm[Hg] Ethan Lepe MD [address] [facility] [address], [place], [address], [facility] 12/21/2023 16:38:09 Date Recorded Body height Heart rate Respiratory rate Body temperature Oxygen saturation Oxygen saturation in Arterial blood by Pulse oximetry Systolic blood pressure Diastolic blood pressure Provider Name and Address Organization Details Last Updated DateTime 4 154.94 cm 74 /min 18 /min 98 [degF] 97 % 97 % 132 mm[Hg] 70 mm[Hg] SPIKE CARRILLO NP [address] [facility] [address], [place], [address], [facility] 4 12:03:14 Date Recorded Body height Body mass index (BMI) Body weight Heart rate Respiratory rate Body temperature Oxygen saturation Oxygen saturation in Arterial blood by Pulse oximetry Systolic blood pressure Diastolic blood pressure Provider Name and Address Organization Details Last Updated DateTime 4 154.94 cm 35.7 kg/m2 13779.9 6 g 70 /min 18 /min 98 [degF] 97 % 97 % 128 mm[Hg] 60 mm[Hg] Shantelle Henderson MD [address], [address], [place], [address], [facility] 4 17:41:59 Date Recorded Body height Heart rate Respiratory rate Body temperature Oxygen saturation Oxygen saturation in Arterial blood by Pulse oximetry Systolic blood pressure Diastolic blood pressure Provider Name and Address Organization Details Last Updated DateTime 4 154.94 cm 88 /min 18 /min 97.3 [degF] 97 % 97 % 150 mm[Hg] 83 mm[Hg] SPIKE CARRILLO NP [address] [facility] [address], [place], [address], [facility] 4 13:17:27 Date Recorded Body height Heart rate Respiratory rate Body temperature Oxygen saturation Oxygen saturation in Arterial blood by Pulse oximetry Provider Name and Address Organization Details Last Updated DateTime 4 154.94 cm 74 /min 18 /min 97.5 [degF] 97 % 97 % Juliet Whittaker NP [address], [place], [address], [facility] 4 11:04:12 Social History Question Answer Notes LastModified by [employer] Details LastModified Time Tobacco Smoking Status Current Every Day Smoker SPIKE CARRILLO NP [address], [place], [address], [facility] 11/13/2023 15:19:45 Do You Have An Advance Directive? Yes Information not available 11/19/2023 What Is Your Code Status? DNR/DNI No Dialysis [email or web address] Information not available 11/13/2023 Where Do You Live? Apartment Alone Information not available 11/19/2023 Legal Guardian? No Informati on not available 11/19/2023 Do You Have A Medical Power Of Health Director? Yes Has HCP Not Invoked Information not available 11/19/2023 What Was The Date Of Your Most Recent Tobacco Screening? 11/19/2023 Information not available 11/19/2023 Do You Have An Out Of Hospital DNR? Yes [email or web address] Information not available 11/13/2023 What Is Your Relationship Status? Lives Locally And Is Supportive. (not Father Of Her Kids) Information not available 11/19/2023 How Much Tobacco Do You Smoke? 1 PPD [email or web address] Information not available 11/13/2023 Has Tobacco Cessation Counseling Been Provided? Yes She Says She Has Been Smoking 1 Cig/d Since Here And Will Try To Keep To That. Information not available 11/19/2023 On What Date Was Tobacco Cessation Counseling Provided? 11/19/2023 Information not available 11/19/2023 How Many Years Have You Smoked Tobacco? 48 [email or web address] Information not available 11/13/2023 Sex: Unknown Functional Status Question Answer Note LastModified by Organizat ion Details LastModified Time Do you use any illicit or recreational drugs? No [email or web address] Information not available 11/13/2023 Do you or have you ever used any other forms of tobacco or nicotine? No [email or web address] Information not available 11/13/2023 What is your level of alcohol consumption? None [email or web address] Information not available 11/13/2023 Mental Status None recorded. Family History Nothing Reported Notes:n/c Medical History No medical history recorded. Gynecological HistoryNo gynecological history recorded. Obstetrics History GPAL:G 0 P 0 0 0 0 Immunizations Vaccine Type Date Status Note Provider Nam e and Address Organization Details Recorded Time Hep B, unspecified formulation 5 completed Marietta Zachariah [facility] 11/20/2023 14:12:27 Hep B, unspecified formulation 6 completed Marietta Zachariah [facility] 11/20/2023 14:12:36 Hep B, unspecified formulation 6 completed Marietta Soni [facility] 11/20/2023 14:12:44 Hep B, unspecified formulation 3 completed Marietta Zachariah [facility] 11/20/2023 14:12:52 Hep B, unspecified formulation 3 completed Marietta Zachariah [facility] 11/20/2023 14:13:01 Hep B, unspecified formulation 9 completed Marietta Soni [facility] 11/20/2023 14:13:12 Tdap 9 completed Marietta Zachariah [facility] 11/20/2023 14:13:29 Td(adult) unspecified formulation 7 completed Marietta Soni [facility] 11/20/2023 14:13:42 Td(adult) unspecified formulation 0 completed Marietta Soni [facility] 11/20/2023 14:13:50 Pneumococcal conjugate PCV20, polysaccharide CBT284 conjugate, adjuvant, PF 4 completed Marietta Soni [facility] 11/20/2023 14:21:19 pneumococcal polysaccharide PPV23 5 completed Marietta Zachariah [facility] 11/20/2023 14:21:52 influenza, unspecified formulation 3 completed Marietta Zachariah null, [facility] 11/20/2023 14:22:14 influenza, unspecified formulation 3 completed Marietta Zachariah [facility] 11/20/2023 14:22:25 Hep A, unspecified formulation 5 completed Marietta Zachariah null, [facility] 11/20/2023 14:22:56 Hep A, unspecified formulation 6 completed Marietta Zachariah [facility] 11/20/2023 14:23:07 SARS-COV-2 (COVID-19) vaccine, UNSPECIFIED 1 completed Marietta Soni [facility] 11/20/2023 14:23:28 SARS-COV-2 (COVID-19) vaccine, UNSPECIFIED 1 completed Marietta Zachariah [facility] 11/20/2023 14:23:41 SARS-COV-2 (COVID-19) vaccine, UNSPECIFIED 1 completed Marietta Zachariah [facility] 11/20/2023 14:23:54 SARS-COV-2 (COVID-19) vaccine, UNSPECIFIED 3 completed Marietta Soni [facility] 11/20/2023 14:24:04 SARS-COV-2 (COVID-19) vaccine, UNSPECIFIED 3 completed Marietta Zachariah [facility] 11/20/2023 14:24:14 Past Encounters Encounter ID Performer Location Encounter Start Date Encounter Closed Date Diagnosis/Indication Diagnosis SNOMED-CT Code Diagnosis ICD10 Code Diagnosis Note [id number] SPIKE CARRILLO NP [address] [address] 11/13/2023 14:55:15 11/21/2023 12:53:23 Open fracture of left tibia [id number] 6511411 S82.292B S/P ORIF at [facility] by Dr. Escobar. procedure well.Soft cast in [...] labs, CSM, painUpdate Ortho with concerns Delirium 2325214 F09 Problemati c in hosp.Impro rajiv with [...] calm her downMonito r closely Chronic pain 44954795 G8 9.29 Increasing oxy as above - 5 or 10 mg q4 hr prn(FYI uses percocet 7.5/325 tid prn at home)William nue other home meds:Dulox etine 60 mg bidLyrica 100 mg tidTizanid ine 4 mg q8 hr prnMonitor use and effect. Asthma 953741576 J45.90 9 Currently on:albuter ol MDI prnzyrtec 10 mg qdFlonase nasal spray qdBreo Ellipta 1 inh qdIncruse Ellipta 1 inh qdMonitor resp. sx. Insulin tr eated type 2 diabetes mellitus 851381655 Z79.4 Continue:C arb control dietLevemi r 30 units sq qdMetformi n 500 mg bidAdd lispro SSI tid Hypertensive disorder 38 072802 I10 Continue losartan 50 mg qdMonitor VS Hyperlipidemia 39556535 E78.5 Continue atorvastat in 20 mg qd Depressive disorder 3418 3947 F32.A Continue:W ellbutrin XL 150 mg qdDuloxeti ne 60 mg bidTrazodo ne 100 mg q HS Currently agitated, adding ativan prn x 14 d as above Gastroesop hageal reflux disease without esophagitis 900001038 K21.9 Continue:p epcid 20 mg q HSpantopra zole 40 mg bidMonitor GI sx. Anemia 047845932 D64.9 Continue Fe Gluc 324 mg qdMonitor CBC, S/S active bleed Migraine 43951059 G43.90 9 Continue sumatripta n 100 mg qd prn [id number] KRISTOPHER HARTMANN, SUPERVISOR [employer] [facility] [address] [place] [address] 11/15/2023 11:34:00 11/21/2023 13:27:05 Open fracture of left tibia [id number] 2426958 S82.292B S/P ORIF at [facility] by Dr. Escobar. procedure well.Soft cast in [...] CSM, painUpdate Ortho with concerns Chronic pain 92762588 G8 9.29 Increasing oxy as above - 5 or 10 mg q4 hr prn(FYI uses percocet 7.5/325 tid prn at home)William nue other home meds:Dulox etine 60 mg bidLyrica 100 mg tidTizanid ine 4 mg q8 hr prnMonitor use and effect. Asthma 705356812 J45.90 9 Currently on:albuter ol MDI prnzyrtec 10 mg qdFlonase nasal spray qdBreo Ellipta 1 inh qdIncruse Ellipta 1 inh qdMonitor resp. sx. Insulin tr eated type 2 diabetes mellitus 766004724 Z79.4 Continue:C arb control dietLevemi r 30 units sq qdMetformi n 500 mg bidAdd lispro SSI tid Hypertensive disorder 38 416701 I10 Continue losartan 50 mg qdMonitor VS Hyperlipidemia 73822145 E78.5 Continue atorvastat in 20 mg qd Depressive disorder 5860 9000 F32.A Continue:W ellbutrin XL 150 mg qdDuloxeti ne 60 mg bidTrazodo ne 100 mg q HSmood is good today, she is pleasant Gastroesop hageal reflux disease without esophagitis 736921104 K21.9 Continue:p epcid 20 mg q HSpantopra zole 40 mg bidMonitor GI sx. [id number] Juliet Whittaker, LANCE [facility] [place] [address] 11/18/2023 15:52:50 11/21/2023 14:49:22 Open fracture of left tibia 5371583474 8092075 S82.292B S/P ORIF at [facility] by Dr. Meadows with Soft cast in [...] to assess readiness and services Chronic pain 16156582 G8 9.29 oxy as above - 5 or 10 mg q4 hr prn, recently increased( FYI uses percocet 7.5/325 tid prn at home)William nue other home meds:Dulox etine 60 mg bidLyrica 100 mg tidTizanid ine 4 mg q8 hr prnMonitor use and effect. Asthma 876660926 J45.90 9 Currently on:albuter ol MDI prnzyrtec 10 mg qdFlonase nasal spray qdBreo Ellipta 1 inh qdIncruse Ellipta 1 inh qdMonitor resp. sx. Insulin tr eated type 2 diabetes mellitus 288713235 Z79.4 Continue:C arb control dietLevemi r 30 units sq qdMetformi n 500 mg bidAdd lispro SSI tid Hypertensive disorder 38 575427 I10 Continuelo sartan 50 mg qdMonitor VS Depressive disorder 3548 9007 F32.A very upset todayConti nue:Wellbu marisa XL 150 mg qdDuloxeti ne 60 mg bidTrazodo ne 100 mg q HSmonitor mood Gastroesop hageal reflux disease without esophagitis 860675332 K21.9 Continue:p epcid 20 mg q HSpantopra zole 40 mg bidMonitor GI sx. Smoker 87553476 F17.200 pt refuses nicotine patch11/17 startnicor ette gum 2 mg po q 1-2 hoursmonit or and encourage quitting Acute constipation 02652 9006 K59.00 11/17 states no bm in a weekdc Miralax bid for bowelssenn a s 1 tab po dailymom 60 cc po x 1 todaymonit or [id number] Shantelle Henderson MD [address] [address] 11/19/2023 16:09:47 11/21/2023 15:41:04 Open fracture of left tibia 8861774435 4972574 S82.292B Recovering from ORIF for open fx [...] 11/24 at 10 AM as planned. Smoker 75751935 F17.200 Doing well with 1 cig/dayCon tinue nicorette gum 2 mg po q 1-2 hours when needed.Con tinue to encourage cessation. Chronic pain 84121639 G8 9.29 From neuropathy and back pain.William nue meds as above and duloxetine 60 mg BID, Lyrica 100 mg TID and tizanidine 4 mg q 8 hrs prnMonitor use and effect. Hypertensive disorder 38 482737 I10 Only 2 BPs checked since here.Will order daily.Cont inue losartan 50 mg qdMonitor BP and labs. Depressive disorder 3548 9007 F33.8 Mood good todayConti nue Wellbutrin XL 150 mg qd, duloxetine 60 mg BID and trazodone 100 mg qhs.Also started on lorazepam 0.5 mg q 6 hrs prn for agitation. Monitor mood.Consu lt psych prn Gastroesop hageal reflux disease without esophagitis 794192346 K21.9 No current sxs.Contin ue famotidine 20 mg qd and pantoprazo le 40 mg qd. (written as BID on d/c summary, but qd in PCC, will leave for now and monitor sxs).Monit or GI sx. Chronic constipation 236 309474 K59.09 She tells me this is a chronic problem and in [place] gave her something sweet that worked well. Figured out it was lactulose. We discuss that that is something we usually use later on and try gentler stuff first.Will increase senna to 2 tabs qhs and continue prn MOM.Monito r bowel function. Chronic ob structive pulmonary disease 25535743 J44.89 More likely COPD than asthma, although may be crossover syndrome.N o current sxs.Contin ue Breo ellipta 200/25 mcg qd, Incruse ellipta 62.5 mcg qd, cetirizine 10 mg qd, fluticason e nasal spray 2 sprays in each nostril qd, and albuterol MDI 2 puffs q 6 hrs prn.Monito r resp. 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 Anemia 608908298 D64.9 Acute on chronic.Co ntinue FeSO4 325 mg qd.Monitor labs. Migraine 80672745 G43.80 9 Had a migraine inpt, none since here.William nue sumatripta n 100 mg qd prn.Also on topiramate 50 mg BID and riboflavin 400 mg qd per d/c med list, but not in PCC, added.Amina tor sxs. [id number] Juliet Whittaker, LANCE [facility] [place] [address] 11/22/2023 08:21:02 2023 15:10:12 Open fracture of left tibia 1555550548 4843274 S82.292B Recovering from ORIF for open fx [...] while NWB and agreeable to revisit on /U with ortho on 11/24 at 10 AM as planned. Chronic constipation 236 776417 K59.09 chronic problemrep orts having bowel movementsc ontdocusat e 100 mg po bidsenna-s 2 tabs qhs and continue prn MOM.Monito r bowel function. Smoker 86177814 F17.200 Doing well with 1 cig/dayCon tnicorette gum 2 mg po q 1-2 hours prnencoura ge cessation. Chronic pain 45015316 G8 9.29 From neuropathy and back pain.Contm eds as above and duloxetine 60 mg BIDLyrica 100 mg TIDtizanid ine 4 mg q 8 hrs prnMonitor use and effect.see ms she has refused a few doses of lyrica but denies this Chronic ob structive pulmonary disease 31128257 J44.89 stableNo current sxs.Contin ueBreo ellipta 200/25 mcg qd, Incruse ellipta 62.5 mcg qd, cetirizine 10 mg qd, fluticason e nasal spray 2 sprays in each nostril qd, and albuterol MDI 2 puffs q 6 hrs prn.Monito r resp. 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 (written as BID on d/c summary, but qd in PCC, will leave for now and monitor sxs).Monit or GI sx. Anemia 499853966 D64.9 Acute on chronic.Co ntinueFeSO 4 325 mg qd.Monitor labs. Dysuria 77575755 R30.0 pt had kenny removed on 11/19, no bladder scan available but urinating good amounts per pt and no distention has scant bleeding per pt and has some11/21 urinalysis with c & s [id number] Juliet Whittaker NP [address] [address] 11/25/2023 14:11:11 2023 15:32:35 Open fracture of left tibia 2394979390 3736419 S82.292B Recovering from ORIF for open fx [...] F/U with ortho in 6 weeks Anemia 585882042 D64.9 Acute on chronic.Co ntinueFeSO 4 325 mg qd.Monitor labs. Smoker 12939025 F17.200 Doing well with 1 cig/day now request to quit totally and would like patch 11/24 dc nicorette gum 2 mg po q 1-2 hours prn11/24 start nicotine patch 14 transderma l q 24 hoursencou rage cessation. Chronic pain 04987105 G8 9.29 From neuropathy and back pain.Contm eds as aboveanddu loxetine 60 mg BIDLyrica 100 mg TIDtizanid ine 4 mg q 8 hrs prnMonitor use and effect.see ms she has refused a few doses of lyrica but denies this [id number] Juliet Whittaker NP [facility] [place] [address] 11/26/2023 12:25:38 2023 16:07:03 Open fracture of left tibia 4078673391 1839834 S82.292B Recovering from ORIF for open fx [...] to match prior dosing Ortho f/u 11/25/23Rec monodaprem ns for visit:Plac ed in AEB out 2-3x [...] F/U with ortho in 6 weeks Anemia 191139287 D64.9 stableAcut e on chronic.Co ntinueFeSO 4 325 mg qd.Monitor labs. Smoker 44926905 F17.200 Doing well with 1 cig/day now request to quit totally and would like patch 11/24 dc nicorette gum 2 mg po q 1-2 hours prn11/24 start nicotine patch 14 transderma l q 24 hours11/25 seems happy with patch todayencou rage cessation. Chronic pain 12834251 G8 9.29 From neuropathy and back pain.Contm eds as aboveanddu loxetine 60 mg BIDLyrica 100 mg TIDtizanid ine 4 mg q 8 hrs prnMonitor use and effect.see ms she has refused a few doses of lyrica but denies this Type 2 kiarra betes mellitus 23308231 E11.42 E11.21 BS improving with increased dosingWith neuropathy and nephropath y.11/21 increase Levemir 30 units sq qd to 34 units qd, contmetfor min 500 mg BID and SSI.Pain meds as above for neuropathy .Sugars have frequently 99-270s hereNo recent HgA1Cs found in any hospital system, most recent 2020.monit or for adjustment s Depressive disorder 7534 3823 F33.8 Mood good todayConti nueWellbut rin XL 150 mg qd, duloxetine 60 mg BID and trazodone 100 mg qhs.11/25 dc for nonuse--lo razepam 0.5 mg q 6 hrs prn for agitation until 11/26 as rehab has been challengin g for her.Monito r mood.Consu lt psych prn Gastroesop hageal reflux disease without esophagitis 721083254 K21.9 No current sxs.Contin uefamotidi ne 20 mg qdpantopra zole 40 mg qd. (written as BID on d/c summary, but qd in PCC, will leave for now and monitor sxs).Monit or GI sx. [id number] SPIKE CARRILLO NP [facility] [address] [place] [address] 12/03/2023 10:34:04 12/04/2023 20:41:13 Open fracture of left tibia 1734690006 8542734 S82.292B Recovering from ORIF for open fx [...] due to open woundMonit or Depressive disorder 7128 9007 F33.8 Mood good today, no agitation or behaviors. ContinueWe llbutrin XL 150 mg qd, duloxetine 60 mg BID and trazodone 100 mg qhs.11/25 dc for nonuse--lo razepam 0.5 mg q 6 hrs prn for agitation until 11/26 as rehab has been challengin g for her.Monito r mood.Consu lt psych prn Anemia 935964677 D64.9 stableAcut e on chronic.Co ntinueFeSO 4 325 mg qd.Monitor labs. Smoker 13949671 F17.200 Waxes and wanes re: smoking.Cu rrently back on the nicoderm patch.Enco urage smoking cessation Chronic pain 22552433 G8 9.29 From neuropathy and back pain.Contm eds as aboveanddu loxetine 60 mg BIDLyrica 100 mg TIDtizanid ine 4 mg q 8 hrs prnMonitor use and effect. Type 2 kiarra betes mellitus 34973952 E11.42 E11.21 BS controlled , most readings 100s, occ. 200s.With neuropathy and nephropath y.On 11/21, increased Levemir from 30 units to 34 units qd, continueCo ntinue metformin 500 mg BID and SSI.Pain meds as above for neuropathy .Monitor Gastroesop hageal reflux disease without esophagitis 239264572 K21.9 No current sxs.Contin uefamotidi ne 20 mg qdpantopra zole 40 mg qd. (written as BID on d/c summary, but qd in PCC, will leave for now and monitor sxs).Monit or GI sx. [id number] Juliet Whittaker NP [address] [address] 12/11/2023 08:34:56 12/13/2023 13:43:14 Open fracture of left tibia 8688242342 4200287 S82.292B Recovering from ORIF for open fx of left tib-fib with NWB to LLE repaired on 11/10/[address] Meadows at [facility] 11/29 S/P recent hosp. due to [...] or for s/s of infection Depressive disorder 4812 9002 F33.8 Mood good today, no agitation or behaviors. ContinueWe llbutrin XL 150 mg qdduloxeti ne 60 mg BIDtrazodo ne 100 mg qhs.Monito r mood.Consu lt psych prn Anemia 826632954 D64.9 stableAcut e on chronic.Co ntFeSO4 325 mg qd.Monitor labs weekly Smoker 67100673 F17.200 Waxes and wanes re: smoking.Cu rrently back on the nicoderm patchwill leave patch on JUL as she continues to change her mind3-10 minutes spent on smoking cessation counseling Encourage smoking cessation Chronic pain 40751441 G8 9.29 From neuropathy and back pain.Conts ee meds aboveand contduloxe richie 60 mg BIDLyrica 100 mg TIDtizanid ine 4 mg q 8 hrs prnMonitor use and effect. Type 2 kiarra betes mellitus 45399614 E11.42 E11.21 BS controlled , most readings 100s, occ. 200s.With neuropathy and nephropath y.On 11/21, increased Levemir from 30 units to 34 units qd, with improved BSContinue metformin 500 mg BID and SSI.Pain meds as above for neuropathy .Monitor Gastroesop hageal reflux disease without esophagitis 050014240 K21.9 No current sxs.Contfa motidine 20 mg qdpantopra zole 40 mg qdMonitor GI sx. Chronic constipation 236 778001 K59.09 chronic problemrep orts having bowel movementsc ontdocusat e 100 mg po bidsenna-s 2 tabs qhs and continue prn MOM.Monito r bowel function. Chronic ob structive pulmonary disease 63960190 J44.89 stableNo current sxs.Contin ueBreo ellipta 200/25 mcg qd, Incruse ellipta 62.5 mcg qd, cetirizine 10 mg qd, fluticason e nasal spray 2 sprays in each nostril qd, and albuterol MDI 2 puffs q 6 hrs prn.Monito r resp. status Hypertensive disorder 38 816368 I10 slightly elevated but improvingw ill monitor as likely slightly elevated prior with pain and prior to medsContin uelosartan 50 mg qdMonitor BP and labs. [id number] Juliet Whittaker NP [facility] [address] [place] [address] 12/18/2023 09:58:36 12/24/2023 14:47:22 Open fracture of left tibia 7800552161 9009043 S82.292B Recovering from ORIF for open fx of left tib-fib with NWB to LLE repaired on 11/10/[address] Meadows at [facility] of note: 11/29 S/P recent hosp. [...] 5 mg po q 4 hours prn pain8/7 dc 10 mg po oxycodone doseof note: refuses tylenol sched and dc'd Completed cephalexin for abx prophylaxi s due to open woundMonit or for s/s of infection Depressive disorder 3548 9007 F33.8 Mood good today, no agitation or behaviors. ContinueWe llbutrin XL 150 mg qdduloxeti ne 60 mg BIDtrazodo ne 100 mg qhs.Monito r mood.Consu lt psych prn Anemia 139946937 D64.9 stableAcut e on chronic.Co ntFeSO4 325 mg qd.Monitor labs weekly Smoker 86429665 F17.200 Waxes and wanes re: smoking.Cu rrently back on the nicoderm patchwill leave patch on JUL as she continues to change her mind3-10 minutes spent on smoking cessation counseling Encourage smoking cessation Chronic pain 62360282 G8 9.29 From neuropathy and back pain.Conts ee meds aboveand contduloxe richie 60 mg BIDLyrica 100 mg TIDtizanid ine 4 mg q 8 hrs prnMonitor use and effect. Type 2 kiarra betes mellitus 01396151 E11.42 E11.21 BS controlled , most readings 100s, occ. 200s.With neuropathy and nephropath y.On 11/21, increased Levemir from 30 units to 34 units qd, with improved BSContinue metformin 500 mg BID and SSI.Pain meds as above for neuropathy .Monitor Gastroesop hageal reflux disease without esophagitis 347439577 K21.9 No current sxs.Contfa motidine 20 mg qdpantopra zole 40 mg qdMonitor GI sx. Chronic constipation 236 549232 K59.09 chronic problemrep orts having bowel movementsc ontdocusat e 100 mg po bidsenna-s 2 tabs qhs and continue prn MOM.Monito r bowel function. Chronic ob structive pulmonary disease 37975713 J44.89 stableNo current sxs.Contin ueBreo ellipta 200/25 mcg qd, Incruse ellipta 62.5 mcg qd, cetirizine 10 mg qd, fluticason e nasal spray 2 sprays in each nostril qd, and albuterol MDI 2 puffs q 6 hrs prn.Monito r resp. status Hypertensive disorder 38 759187 I10 slightly elevated but improvingw ill monitor as likely slightly elevated prior with pain and prior to medsContin uelosartan 50 mg qdMonitor BP and labs. [id number] Ethan Lepe MD [facility] [address] 12/21/2023 16:37:35 12/24/2023 15:57:18 Cellulitis of left lower limb [id number] 1576731 L03.116 concern for infection with altered mental statusstat CBC with diff, blood cultures x 2, bmp, UAafter labs drawn startkefle x 500 mg qid x 10 daysprobio tic x 2 weeksto ED for decompensa tion Altered mental status 41 8877356 G93.41 see above [id number] SPIKE CARRILLO NP [facility] [address] 12/31/2023 11:32:41 01/03/2024 15:58:35 Metabolic encephalopathy 44014321 G93.41 Altered MS - treated for infection and concern of serotonin syndrome.S till with altered MS upon return.See n by Psych [place] [facility] [place] meds adjusted - currently off cymbalta and wellbutrin and trazodone. Pregabalin and topamax continued. Recommend outpt. psych follow up re: encephalop athy and ? restart of cymbalta and wellbutrin .Will refer to Psych provider here, continue meds, continue to monitor behaviors and MS. Cellulitis of left lower limb [id number] 4542196 L03.116 Initially treated with IV Vanco, ceftriaxon e, and ampicillin .Seen by ID, abx. changed to cefepime and doxycyclin e, completed 10 days of tx. with improvemen t in cellulitis .Continue to monitor LLE, VS, and labs.CBC, BMP x 1 in am, then q mond. x 2 Insulin tr eated type 2 diabetes mellitus 073702153 Z79.4 Levemir stopped in hosp., BS stayed mostly euglycemic Upon discharge, recommende d metformin 500 mg qd, lispro SSIContinu e Carb control dietMonito r BS and need to adjust meds. Open fract ure of left tibia [id number] 7014416 S82.292B Recovering from ORIF for open fx [...] fx)Follow up with Ortho as sched. Delirium 9342723 F09 Problemati c during first hosp.Impro rajiv with pain mgmt, fracture repair, and tx. of urinary retention. Hosp. meds reviewed, appears ativan used in hosp. during agitated event. Continues with behaviors and agitation; see above POC Depressive disorder 6108 3421 F33.8 See above, meds adjusted in hosp. [...] prn Gastroesop hageal reflux disease without esophagitis 134234770 K21.9 No current sxs.Contin uefamotidi ne 20 mg qdpantopra zole 40 mg qd. (written as BID on d/c summary, but qd in PCC, will leave for now and monitor sxs).Monit or GI sx. Hypertensive disorder 38 448840 I10 Continue losartan 50 mg qdMonitor VS Hyperlipidemia 97691128 E78.5 Continue atorvastat in 20 mg qd Migraine 72906327 G43.80 9 Continue sumatripta n 100 mg qd prn Chronic pain 16969476 G8 9.29 From neuropathy and back pain.dulox etine 60 mg BID stopped in hosp. due to encephalop athy.Remai ns on:Lyrica 100 mg TIDAPAP prntizanid ine 4 mg q 8 hrs prnMonitor use and effect. Chronic constipation 236 230956 K59.09 continue senna s 2 q HS and colace 100 mg bidadjust prn Asthma 450205082 J45.90 9 Currently on:albuter ol MDI prnzyrtec 10 mg qdFlonase nasal spray qdBreo Ellipta 1 inh qdIncruse Ellipta 1 inh qdMonitor resp. sx. Anemia 739527758 D64.9 stableAcut e on chronic.Co ntinueFeSO 4 325 mg qd.Monitor labs. [id number] Shantelle Henderson MD [facility] [address] 01/02/2024 17:02:34 01/06/2024 10:29:53 Metabolic encephalopathy 47887370 G93.41 With numerous med changes inpt due to concern about seratonin syndrome.S he continues to be confused at times and with some agitation as detailed in rehab notes.Cont inue topiramate 50 mg BID.Will likely need some of other meds restarted also, but will await psych consult.Mo nitor mood and behaviors. Cellulitis of left lower limb 8414981618 2482608 L03.116 Completed tx inpt.Monit or for recurrence . Insulin tr eated type 2 diabetes mellitus 518372156 E11.42 With neuropathy .Levemir stopped in hosp.BS have been <200 since return.Con tinue metformin 500 mg qd and SSIContinu e Lyrica 100 mg TID and topiramate 50 mg BID for neuropathy .Continue Carb control dietMonito r fingerstic ks TID and restart Levemir if needed. Open fract ure of left tibia 2392176690 7649622 S82.292B Recovering from ORIF for open fx of left tib-fib [facility] per 11/24 note, [...] above. Gastroesop hageal reflux disease without esophagitis 507793930 K21.9 No current sxs.Contin ue famotidine 20 mg qd and pantoprazo le 40 mg qd.Monitor GI sx. Hypertensive disorder 38 249848 I10 Remains in good control on losartan 50 mg qdMonitor BP and labs. Hyperlipidemia 60131388 E78.49 Continue atorvastat in 20 mg qdMonitor labs yearly. Migraine 32727742 G43.80 9 Continue sumatripta n 100 mg qd prn.Also on topiramate 50 mg BID and riboflavin 400 mg qdMonitor sxs Chronic pain 21758976 G8 9.29 As above and tizanidine 4 mg q 8 hrs prnMonitor sxs Chronic constipation 236 916484 K59.09 Continue bowel meds as ordered.Mo nitor bowel function. Anemia 295355483 D64.89 StableCont inue FeSO4 325 mg qd.Monitor labs. Chronic ob structive pulmonary disease 17054501 J44.89 No current sxs.Contin ue Breo ellipta 200/25 mcg qd, Incruse ellipta 62.5 mcg qd, cetirizine 10 mg qd, fluticason e nasal spray 2 sprays in each nostril qd, and albuterol MDI 2 puffs q 6 hrs prn.Monito r resp. status Itching 286678180 L29.9 Already on cetirizine 10 mg qd, will add diphenhydr amine 25 mg q 4 hrs prn.Monito r for oversedati on or urinary retention. [id number] SPIKE CARRILLO NP [address] [address] 01/09/2024 13:16:26 01/15/2024 11:32:24 Metabolic encephalopathy 71127743 G93.41 With numerous med changes inpt due to concern about seratonin syndrome.S he continues to be confused at times and with some agitation as detailed in rehab notes but overall mood is pleasant and cooperativ e.Continue topiramate 50 mg BID.Will likely need some of other meds restarted also, but will await psych consult.Mo nitor mood and behaviors. Cellulitis of left lower limb 4408657016 3854690 L03.116 Completed tx inpt.Monit or for recurrence . Insulin tr eated type 2 diabetes mellitus 393909120 E11.42 With neuropathy .Levemir stopped in hosp.BS have been <200 since return.Con tinue metformin 500 mg qd and SSIContinu e Lyrica 100 mg TID and topiramate 50 mg BID for neuropathy .Continue Carb control dietMonito r fingerstic ks TID and restart Levemir if needed. Open fract ure of left tibia 5475617176 7717429 S82.292B Recovering from ORIF for open fx of left tib-fib continuing with NWB to [facility] by Ortho 01/05, now WBAT with walker, and ok to shower with tub bench without boot.Next f/u 10/7Contin ue APAP 650 mg q 4 hrs prn pain Depressive disorder 5598 9007 F33.8 As above.Refe rred to Psych for continued mgmt. Gastroesop hageal reflux disease without esophagitis 243836084 K21.9 No current sxs.Contin ue famotidine 20 mg qd and pantoprazo le 40 mg qd.Monitor GI sx. Hypertensive disorder 38 992624 I10 Remains in good control on losartan 50 mg qdMonitor BP and labs. Hyperlipidemia 77393039 E78.49 Continue atorvastat in 20 mg qdMonitor labs yearly. Migraine 59892988 G43.80 9 Continue sumatripta n 100 mg qd prn.Also on topiramate 50 mg BID and riboflavin 400 mg qdMonitor sxs Chronic pain 92012398 G8 9.29 As above and tizanidine 4 mg q 8 hrs prnMonitor sxs Chronic constipation 236 114033 K59.09 Continue bowel meds as ordered.Mo nitor bowel function. Chronic ob structive pulmonary disease 11780195 J44.89 No current sxs.Contin ue Breo ellipta 200/25 mcg qd, Incruse ellipta 62.5 mcg qd, cetirizine 10 mg qd, fluticason e nasal spray 2 sprays in each nostril qd, and albuterol MDI 2 puffs q 6 hrs prn.Monito r resp. status Anemia 351467694 D64.89 StableCont inue FeSO4 325 mg qd.Monitor labs. Itching 578578200 L29.9 Already on cetirizine 10 mg qd, will add diphenhydr amine 25 mg q 4 hrs prn.Monito r for oversedati on or urinary retention. [id number] Juliet Whittaker NP [address] [address] 01/15/2024 11:02:23 01/17/2024 13:48:19 Metabolic encephalopathy 08419098 G93.41 With numerous med changes inpt due [...] wtih pcp Cellulitis of left lower limb 7651250190 6634279 L03.116 Completed tx inpt.and resolvedMo nitor for recurrence outpt with pcp Insulin tr eated type 2 diabetes mellitus 489914727 E11.42 With neuropathy .Levemir stopped in hosp.BS have been <200 since return.Con tinuemetfo rmin 500 mg bidLyrica 100 mg TIDtopiram ate 50 mg BID for neuropathy .Continue Carb control dietMonito r fingerstic ks TID and restart Levemir if needed. Open fract ure of left tibia 2651140513 8883224 S82.292B Recovering from ORIF for open fx [...] mgmt. Gastroesop hageal reflux disease without esophagitis 033539757 K21.9 No current sxs.Contin uefamotidi ne 20 mg qdpantopra zole 40 mg qd.Monitor GI sx. outpt with pcp Hypertensive disorder 38 160189 I10 Remains in good control and labile at timescontl osartan 50 mg qdMonitor BP and labs outpt Hyperlipidemia 64507044 E78.49 Continueat orvastatin 20 mg qdMonitor labs oupt with pcp Migraine 09581086 G43.80 9 Continuesu matriptan 100 mg qd prn.topira mate 50 mg BIDribofla francia 400 mg qdMonitor sxs outpt with pcp Chronic pain 88920719 G8 9.29 As above and tizanidine 4 mg q 8 hrs prnMonitor sxs outpt with pcp Chronic constipation 236 883804 K59.09 Continue bowel meds as ordered.Mo nitor bowel function outpt with pcp Chronic ob structive pulmonary disease 13274145 J44.89 No current sxs.Contin ueBreo ellipta 200/25 mcg qd, Incruse ellipta 62.5 mcg qd, cetirizine 10 mg qd, fluticason e nasal spray 2 sprays in each nostril qd, and albuterol MDI 2 puffs q 6 hrs prn.Monito r resp. status with pcp outpt Anemia 979888010 D64.89 StableCont inue FeSO4 325 mg qd.Monitor labs outpt with pcp Health Concerns Section Related Observation LastModified by Organization Detai ls LastModified Time None Recorded Concern Status LastModified by Organization Details LastModified Time None Recorded Advance Directives Directive Y: Payers Encounter Date Sequence Insurance Name Policy Number Policy Mantilla Covered Member ID Mantilla Member ID Guarantor Name 12/21/2023 1 [place] Louisa Ollie [id number] Louisa Ollie 12/31/2023 1 [place] Louisa Ollie [id number] Louisa Ollie 01/02/2024 1 [place] Louisa Ollie [id number] Louisa Ollie 01/09/2024 1 [place] Louisa Ollie [id number] Louisa Ollie 01/15/2024 1 [place] Louisa Ollie [id number] Louisa Ollie Notes Date Note Type Note [...] site of lower wound Ethan Lepe MD [address] [place] [address], [address], [place], [address], [facility] 12/21/2023 16:44:18 4 text/html Louisa is seen today for readmission.She is a 63 yo lady, here at [facility] for rehab due to a left tibial fx, s/p ORIF. She was sent to [facility] [place]23 due to altered MS.Work up revealed [...] - home meds continued. She returned from [facility] 12/31/23 for continued care and rehab.Upon exam, [...] of delirium.MOLST: DNR, DNI SPIKE CARRILLO NP [address] [place] [address], [address], [place], [address], [facility] 12/31/2023 12:54:50 4 text/html This is a [...] near future. I see her with a turkmen speaking staff member.Tonight she is up in [...] and hx of delirium. Shantelle Henderson MD [address] [place] [address], [address], [place], [address], [facility] 01/02/2024 20:37:01 4 text/html Louisa is seen [...] hx of delirium. SPIKE CARRILLO, LANCE [address] [facility], [address], [place], [address], [facility] 01/09/2024 13:33:32 4 text/html Louisa is a 62 yo lady admitted on 11/12 to [facility] from [facility] for continued care and rehab after a brief hosp. related to a fall with left tibial fx. Her PMH includes HTN, AODM, COPD, chronic pain, depression, insomnia, GERD, HLD, migraine, smoker, s/p bilateral TKRs, s/p ORIF left tib-fib 11/2023, recurrent fevers of unknown origin, hx of transaminitis, and hx of delirium. She initially presented to [facility] 11/10/23 after falling at home with residual [...] not restarted on d/c. While here at [facility]:She was last seen by Ortho 01/05 with [...] approximately 20 tablets. She was seen by psychiatric mental health nurse here and recommends 3 mg po qhs, [...] s/s of infection. Juliet Whittaker NP [address] [facility], [address], [place], [address], [facility] 01/15/2024 11:54:12 OBGyn Episode No OBEpisode recorded.
--- OUTSIDE RECORDS SUMMARY | 2024-09-25 12:49 | XMS_ITS | Clinical Summary ---
Author Organization [address] [place] [address] [place] [address] Phone Care Team Providers Care International Controller Name Role Phone Name, Henry BARTLETT Primary Care Provider [phone] Immunizations Name Administration Dates Next Due Pfizer SARS-CoV-2 COVID-19, mRNA, LNP-S, preservative free 02/28/2021,06/16/2020,05/26/2020 Surgical History Surgery Date Site/Laterality Comments KNEE ARTHROSCOPY PROCEDURE: NJ ARTHROSCOPY AID TX SPINE&/FX KNEE W/O FIXJ HYSTERECTOMY PROCEDURE: HISTORICAL HYSTERECTOMY HERNIA REPAIR PROCEDURE: HISTORICAL HERNIA REPAIR/ING CHOLECYSTECTOMY PROCEDURE: HISTORICAL CHOLECYSTECTOMY ESOPHAGOGASTRODUODENOSCOPY 2002? PROCEDURE: NJ ESOPHAGOGASTRODUODENOSCOPY TRANSORAL DIAGNOSTIC; COMMENT: h pylori gatritis? COLONOSCOPY 2004 PROCEDURE: NJ COLONOSCOPY FLX DX W/COLLJ SPEC WHEN PFRMD; COMMENT: normal? (done for evaluation of rectal bleeding) ESOPHAGOGASTRODUODENOSCOPY 09/20/2009 PROCEDURE: NJ EGD TRANSORAL BIOPSY SINGLE/MULTIPLE; COMMENT: Esophagus normal, bilious fluid in the stomach, antral gastritis-biopsy:mild reactive gastropathy (HPylori-), normal SB TOTAL KNEE ARTHROPLASTY PROCEDURE: HISTORICAL TOTAL KNEE REPLACE; COMMENT: both knees (2010 and 2009) SINUS SURGERY 2010 PROCEDURE: NJ UNLISTED PROCEDURE ACCESSORY SINUSES; COMMENT: date approximate; [...] age to complete this topic Meningococcal B Vaccine Aged Out No l onger eligible based on patient's age to complete this topic RSV Immunization Patients Under 20 months Aged Out No longer eligible based on patient's age to complete this topic Varicella Vaccines Aged Out No longer eligible based on patient's age to complete this topic Insurance [place] - [place] Advance Directives Documents on File Type Date Recorded 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
== END 2024-09-25 12:48 | disposition home or self-care (01) ==
LOC: HO.CT 12:47
PROVIDERS: PCP Internal Medicine Geriatric Medicine; Visit Provider Internal Medicine Geriatric Medicine
DX: R41.3 Other amnesia (principal)
CPT/HCPCS: 70450

== ENCOUNTER → 2024-09-25 12:50 | Outpatient (BNV) | payer MEDICAID, SELFPAY | PROVIDERS: PCP Internal Medicine Geriatric Medicine; Visit Provider Nuclear Medicine | DX: G93.89 Other specified disorders of brain (principal); H31.119 Age-related choroidal atrophy, unspecified eye | CPT/HCPCS: 70450 ==

== ENCOUNTER 2025-01-21 08:54 | Outpatient (AMB) | payer MEDICAID, SELFPAY ==
--- OUTSIDE RECORDS SUMMARY | 2025-01-19 13:45 | XMS_ITS | Encounter Summary ---
Author Organization [employer] Address [address] [facility] 7t [place] [address] Care Team Providers Care Identification And Records Commander Name Role Phone Henry Bernardo MD Primary Care Provider [phone] Reason for Referral * Consultation (Routine) - Authorized Specialty Diagnoses / Procedures Referred By Ann dickinson Referred To Contact Podiatry Diagnoses Ingrown toenail NameHenry MD [address] [place] [phone] Phone: tel: fax: Tony Vigil DPM [address] [facility] [address] [place] [phone] Phone: tel: fax: Referral ID Status Reason Start Date Expiration Date Visits Requested Visits Authorized [id number] Authorized Specialty Services Required 01/19/2025 01/19/2026 1 1 Reason for Visit * Reason Comments Follow-up Encounter Details Date Type Department Care Team (Late st Contact Info) Description 01/19/2025 1:45 PM EDT Office Visit [facility] MEDICINE [address] [place], [place] [phone] Henry Bernardo MD [address] [place], [place] [phone] Type 2 diabetes mellitus with other specified complication, with long-term current use of insulin (CMS/HCC) (Primary Dx); Ingrown toenail; Mild vascular dementia with anxiety (CMS/HCC); Hypertension, unspecified type Social History Tobacco Use Types Packs/Day Years Used Date Smoking Tobacco: Every Day Cigarettes Passive Smoke Exposure: Current Smokeless Tobacco: Current Tobacco Cessation:Ready to Q uit: Not Asked; Counseling Given: Not Answered Alcohol Use Standard Drinks/Week Comments Never 0 (1 standard drink = 0.6 oz pur e alcohol) Depression Answer Date Recorded Patient Health Questionnaire-9 Score 24 11/20/2024 Patient Health Questionnaire-9 Score 24 11/20/2024 Last PHQ-9: Questionnaire Data Not on file 0 11/20/2024 Housing Stability Answer Date Recorded What is your housing situation today? I have aleksey conte 11/18/[address] you li ve. Do you have problems with any of the following? None of the above 11/18/2024 Food Insecurity Answer Date Recorded Within the past 12 months, y ou worried that your food would run out before you got money to buy more: Never True 11/18/2024 Within the past 12 months,th e food you bought just didn't last and you didn't have enough money to get more: Never True 01/2025 Transportation Answer Date Recorded In the past 12 months, has l ack of transportation kept you from medical appts, meetings, work or from getting things needed for daily living? No 11/18/2024 Utilities Answer Date Recorded In the past 12 months, has t he electric, gas, oil or water company threatened to shut off services in your home? No 11/18/2024 Depression Answer Date Recorded Patient Health Questionnaire-2 Score 6 11/20/2024 Internet Access Answer Date Recorded Internet Access Q1 Yes 11/18/2024 Internet Access Q2 Not on file 11/18/2024 Comments Unknown Sex and Gender Information Value Date Recorded Sex Assigned at Female 03/12/2022 10:16 AM EDT Legal Sex Female 10:16 AM EDT Gender Identity Female 03/12/2022 10:16 AM EDT Sexual Orientation Straight 03/12/2022 10 :16 AM EDT documented as of this encounter Last Filed Vital Signs Vital Sign Reading Time Taken Comments Blood Pressure 158/68 01/19/2025 1:44 PM EDT Pulse 81 01/19/2025 1:44 PM EDT Temperature 36.1 C (97 F) 01/19/2025 1:44 PM EDT Respiratory Rate 14 01/19/2025 1:44 PM EDT Oxygen Saturation 99% 01/19/2025 1:44 PM EDT Inhaled Oxygen Concentration - - Weight 88.2 kg (194 lb 6.4 oz) 01/19/2025 1:44 P M EDT Height 160 cm (5' 3 ) 01/19/2025 1:44 PM EDT Body Mass Index 34.44 01/19/2025 1:44 PM EDT documented in this encounter Progress Notes * Henry Bernardo MD - 01/19/2025 1:45 PM EDT Subjective Patient ID: Louisa Levin is a 64 y.o. female who presents for Follow-up. Patient comes for a follow-up visit. Last appointment I started her on low-dose Aricept for memory problems that I think are related to mild vascular dementia. She is alone for the visit today. She continues to complain of memory problems but denies any difficulties tolerating the Aricept. She has a follow-up with neurology on January 21. Her BP is elevated. She has VNA that checks her blood pressure daily and she tells me she uses her losartan daily as prescribed and her BP is usually better at home. The patient blood sugars well-controlled based on the last hemoglobin A1c. She is on metformin 500 mg twice daily, insulin Levemir 30 units daily, she denies episodes of hypoglycemia at home. She requested referral to podiatry for ingrown toenails on both great toes, she is also interested in getting diabetic shoes and a CGM and I agreed. Review of Systems Constitutional: Negative for chills and fever. HENT: Negative for sore throat. Respiratory: Negative for cough, shortness of breath and wheezing. Cardiovascular: Negative for chest pain, palpitations and leg swelling. Gastrointestinal: Negative for abdominal pain. Objective Vitals: 01/19/25 1344 BP: (!) 158/68 BP Location: Left arm Patient Position: Sitting BP Cuff Size: Adult Pulse: 81 Resp: 14 Temp: 97 ??F (36.1 ??C) TempSrc: Temporal SpO2: 99% Weight: 194 lb 6.4 oz (88.2 kg) Height: 5' 3 (1.6 m) Physical Exam Constitutional: Appearance: Normal appearance. Cardiovascular: Rate and Rhythm: Normal rate and regular rhythm. Pulses: Dorsalis pedis pulses are 2+ on the right side and 2+ on the left side. Posterior tibial pulses are 2+ on the right side and 2+ on the left side. Heart sounds: Murmur heard. No gallop. Pulmonary: Effort: Pulmonary effort is normal. No respiratory distress. Breath sounds: Normal breath sounds. No wheezing. Musculoskeletal: Right lower leg: No edema. Left lower leg: No edema. Right foot: Normal range of motion. Left foot: Normal range of motion. Feet: Right foot: Protective Sensation: 5 sites tested. 3 sites sensed. Skin integrity: Skin integrity normal. Toenail Condition: Right toenails are ingrown. Left foot: Protective Sensation: 5 sites tested. 3 sites sensed. Skin integrity: Skin integrity normal. Toenail Condition: Left toenails are ingrown. Neurological: Mental Status: She is alert. Lab Results Component Value Date HGBA1C 6.1 (A) 11/18/2024 HGBA1C 5.8 07/29/2024 HGBA1C 7.2 (A) 01/28/2024 HGBA1C 7.6 (A) 08/06/2023 HGBA1C 7.2 (A) 04/09/2023 HGBA1C 6.4 (H) 07/11/2022 HGBA1C 6.3 (H) 07/09/2022 Lab Results Component Value Date GLUCOSE 123 (H) 08/14/2024 NA 144 08/14/2024 K 5.2 (H) 08/14/2024 CO2 24 08/14/2024 CL 113 (H) 08/14/2024 BUN 19 (H) 08/14/2024 CREATININE 1.16 08/14/2024 Lab Results Component Value Date WBC 5.7 08/14/2024 HGB 11.0 (L) 08/14/2024 HCT 36.6 (L) 08/14/2024 MCV 88.6 08/14/2024 PLT 182 08/14/2024 Assessment/Plan Diagnoses and all orders for this visit: Type 2 diabetes mellitus with other specified complication, with long-term current use of insulin ([facility]) Comments: Continue current dose of metformin and Levemir Continue statin, baby ASA and ARB I will prescribe the patient a CGM Referral to podiatry for ingrown toenails I will prescribe the patient diabetic shoes as well as he requested She is reminded to go for the fasting blood work ordered at her previous visit for lipids and urinefor microalbumin. Orders: - POCT Glucose - Basic Metabolic Panel; Future Ingrown toenail - Referral to Podiatry; Future Mild vascular dementia with anxiety (CMS/HCC) Comments: Increase Aricept to 10 mg. She is encouraged to keep her upcoming appoint with neurology Hypertension, unspecified type Comments: Continue current dose of losartan. Recheck BMP, continue checking BP at home with VNA Orders: - losartan (Cozaar) 50 MG tablet; Take 1 tablet (50 mg) by mouth Once per day. - Basic Metabolic Panel; Future Other orders - donepezil (Aricept) 10 MG tablet; Take 1 tablet (10 mg) by mouth at bedtime. - Continuous Glucose Set Off Blocker (FreeStyle [address]) device; 1 each Once per day. Use as directed for CGM - Continuous Glucose Sensor (FreeStyle Jimena 3 Plus Sensor) misc; 1 each every 15 days. Apply 1 every 15 days as directed for CGM - glucose blood (FreeStyle Precision Richard Test) test strip; Use to test blood sugar 3 times daily incase of CGM failure or extremes of BG Future Appointments Date Time Provider Department Center 02/05/2025 9:00 AM Suni Rodriguez RN MEDICINE [facility] documented in this encounter Plan of Treatment Upcoming Encounters Date Type Department Care Team (Late st Contact Info) Description 02/05/2025 9:00 AM EDT Telemedicine [facility] [address] [place] [phone] Suni Rodriguez RN 02/12/2025 9:00 AM EDT Office Visit [facility] ADULT DENTAL [address] [place] [phone] Lorena Cazares, DDS [address] [place] [address] 04/14/2025 2:30 PM EST Office Visit [facility] [address] [place] [phone] Name, MD Henry [address] [facility] [place] [address] Scheduled Orders Name Type Priority Associated Diagnoses Orde r Schedule Basic Metabolic Panel Lab Routine Type 2 diabetes mellitus with other specified complication, with long-term current use of insulin (CMS/HCC) Hypertension, unspecified type Expected: 01/19/2025 (Approximate), Expires: 01/19/2026 Scheduled Referrals Name Type Priority Associated Diagnoses Orde r Schedule Referral to Podiatry Outpatient Referral Routine Ingrown toenail Expected: 01/19/2025 (Approximate), Expires: 01/19/2026 documented as of this encounter Procedures Procedure Name Priority Date/Time Associated Diagnosis Comments POCT GLUCOSE Routine 01/19/2025 1:45 PM EDT Type 2 diabetes mellitus with other specified complication, with long-term current use of insulin (CMS/[facility]) documented in this encounter Results * POCT Glucose (01/19/2025 1:45 PM EDT) [facility] Glucose Blood, POC 110 60 - 200 mg/dL QC Media Lot # [id number] Lot# Expiration Date Blood Capillary blood specimen / Unknown 01/19/2025 1:45 PM EDT Henry Bernardo MD POINT OF CARE TEST ENTER/EDIT OR DERABLES Final Result documented in this encounter Visit Diagnoses Diagnosis Type 2 diabetes mellitus with other specified complication, with long-term current use of insulin (CMS/HCC)- Primary Ingrown toenail Ingrowing nail Mild vascular dementia with anxiety (CMS/HCC) Hypertension, unspecified type documented in this encounter Additional Health Concerns Assessment Noted Time PHQ-9 Depression Total Score: 24 11/20/2 025 11:00 AM EDT documented as of this encounter Care Teams Identification And Records Commander Relationship Specialty Start Date End Date NameHenry [place] [address] PCP - General Family Medicine 08/19/15 Finn Galindo Informatics Application AnalystHead Machinist 08/06/23 Mari Carrion Fire Extinguisher ChargerHead Machinist 12/03/23 Chiquita 01/18/24 documented as of this encounter
--- NOTE | 2025-01-21 08:57 | A.OFFVIS_ITS ---
Vital Signs 01/21/25 09:01 Height 5 ft 3 in BP 132/68 Blood Pressure Location Rt brachial Position Sitting Respiration 16 Pulse 67 Pulse Oximetry (%) 98 Intake Visit Reasons: ENP: Memory problems/ Mild dementia Time Cycle Operator Required: Yes Time Cycle Operator Services: Time Cycle Operator Present Time Cycle Operator Name: Oziel Mccauley ID [id number] Information Interpreted: non-clinical & clinical Supervisor Decorating: Supervisor Decorating Present Accompanied by: Spouse Allergies iodine Allergy (Severe, Verified 01/21/25 09:01) THROAT CLOSES ibuprofen Adverse Reaction (Intermediate, Verified 01/21/25 09:01) UPSET STOMACH HPI Comments Details: Louisa is a 64-year-old female patient with a past medical history of asthma, SHANNAN on CPAP, hyperlipidemia, type 2 diabetes, and hepatitis-C who is here today for a memory evaluation. According to referral notes from primary care dated 12/23/2024, her family has been noticing progressive memory problems. A workup was conducted through primary care including reversible causes of dementia which was negative. A CT scan of the head revealed evidence of microvascular leukomalacia and age- related atrophy. A mini cognitive test performed in the office was abnormal. It was suspected that based on medical history and CT scan, that she has possible vascular dementia. (She has a nerve stimulator in her back and cannot have an MRI) 08/14/2024 TSH, RPR, and B12 were all WNL Today accompanied by her and with use of a video medical hospital sales, Louisa tells me that she has noticed that she has been experiencing some memory changes. She feels that she Forgets about everything such as getting lost in conversation or loosing her belongings at home. She started noticing a change in her memory slowly over the course of the last 3-4 years or so. Her started to notice these symptoms around the same time that Louisa did as Louisa vocalized her concerns to him. He was not noticing changes earlier on than that. His biggest concern in regards to her memory is that she has numerous medical conditions and she is on numerous medications. He is concerned that she will have difficulty managing her health moving forward if her memory continues to decline. Memory evaluation: Onset of memory changes: 3-4 years ago Rate of progression:Slowly over the course of the last few years Cognitive: Difficulty remembering upcoming events: Yes, her and RERECORDING MIXER assist with reminding her Getting lost: No, though she is not going anywhere on her own Difficulty keeping track of time: Yes Difficulty finding appropriate words:Yes Difficulty making decisions or problem-solving: Yes Functional: Difficulty writing checks, paying bills:Yes but much of her bills are automated Difficulty driving a car: Currently not driving Difficulty shopping alone: Does not shop alone but believes that she would not be able to do this Difficulty performing household tasks:No, she is still cooking and cleaning Difficulty managing own medications: She has a nurse helping her at home with this Difficulty pursuing hobbies/leisure activities:She tells me that she does not have hobbies Change in gait:She feels that she has had changes in the way she walks d/t pain Social activities: Difficulty holding conversation:Yes, feels that she gets lost in conversation often Decreased social activity with family/friends: She tells me that she only so cializes with her family. Less cooperative: No Less aware of others feeling/her full: Yes, she feels that she has been short fused with her family. Less concerned about bathing/dressing/grooming:No Behavioral: Sad, depressed:Yes Anxious, worried:Yes Inpatient, fidgety:Yes Acts impulsively, disinhibited:Yes, she feels that she is always impulsive Change appetite or weight:She has had a reduction in her appetite and a 100lb weight loss over the last year Change in sleep pattern, daytime fatigue:She feels that she sleeps well with trazadone. She has been taking trazadone for many years. Hallucinations:She feels that she has had hallucinations in the past including people, zombies, and objects aroud the home that are not there. She will initially get scared and then will be able to rationalize that the hallucinations are not real. This has been going on intermittently for about 2 years. [facility] Medical History (Updated 01/21/25 @ 11:27 by Génesis Lance CNP) Personal history of nicotine dependence Toxic metabolic encephalopathy Hallucinations, visual Paranoid ideation Delirium Cellulitis of left leg SHANNAN (obstructive sleep apnea) Diabetes Hepatitis GERD (gastroesophageal reflux disease) Neuropathy Fibromyalgia Depression Sleep apnea Asthma Elevated cholesterol HTN (hypertension) Surgical History History of esophagogastroduodenoscopy (EGD) H/O colonoscopy S/P insertion of spinal cord stimulator Hx of excision of mass Hx of hernia repair Social History Household Members: None Housing: Retirement Do you presently have visiting nurse or other home services: No (currently at [facility]) Alcohol intake: current Alcohol intake frequency: does not drink Alcohol type: wine 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 Patient Tobacco Use Status: Tobacco use Unknown Cigarette Packs Per Day: 1 Cigarettes Per Day: 24 Years Smoked: 48 Substance Use Type: Marijuana Advance Directives Date on File: 12/23/23 service: No Review of Systems Const Reports as per HPI Physical Exam Exam Exam: MOCA: MOCA total:[]/30 Executive:[]/5 Naming:[]/3 Attention:[]/6 Language:[]/3 Abstraction:[]/2 Delayed recall:[]/5 Orientation:[]/6 Vital Signs: Last Vital Signs Pulse 67 01/21/25 09:01 Resp 16 01/21/25 09:01 BP 132/68 01/21/25 09:01 Pulse Ox 98 01/21/25 09:01 Const General: cooperative, healthy appearing, comfortable and no acute distress Nutritional Appearance: well nourished Limitations: no limitations HEENT Head: Yes normal to inspection and Yes normocephalic Eyes General: appearance normal, both eyes and all related structures Visual Bay: normal visual bay by confrontation Alignment and Position: alignment normal Periorbital: periorbital findings normal Eyelids: Yes eyelids normal Conjunctivae: conjunctivae normal Sclerae: sclerae normal Direct Ophthalmoscopy: normal light reflex Neuro General: tone normal Cranial nerves: Yes CN's II-XII intact bilaterally and Yes Facial sensation intact/muscles of mastication intact Cognition (Neuro): normal cognition Gait exam (Neuro): Antalgic gait present Motor exam (neuro): 5/5 motor strength present throughout, Pronator motor function not present, Tremors during motor activity present (Mild BUE action tremor) and normal tone Sensory Exam: double simultaneous stimulation for sensation normal Deep tendon reflexes (DTR's): Right triceps reflex intensity grade: 2+, Left triceps reflex intensity grade: 2+, Rt Biceps (C5, C6): 2+, Left biceps reflex intensity grade: 2+, Right brachioradialis reflex intensity grade: 2+, Left brachioradialis reflex intensity grade: 2+, Right patellar reflex intensity grade: 0, Left patellar reflex intensity grade: 0, Right ankle reflex intensity grade: 0 and Left ankle reflex intensity grade: 0 Coordination: [id number] test normal Psych Appearance: grossly normal Mental Status: mental status grossly normal Speech and movement: Normal speech and movement present and Clear speech present Affect: Anxious affect present Attitude: cooperative Thought process: Normal thought process present Thought content: Normal thought content present Insight: Good insight present (Psych) Judgement: Good judgement present (Psych) Assessment & Plan Assessment & Plan (1) Memory change: Comment: . Code(s): R41.3 - Other amnesia Category: Medical Plan: . Maxi Jasso is a 64-year-old female patient with a past medical history of asthma, SHANNAN on CPAP, hyperlipidemia, type 2 diabetes, and hepatitis-C who is here today for a memory evaluation. Prior workup has included a CT of the brain and lab work to rule out reversible causes of memory loss. Labs were normal though her CT scan of the brain did suggest possibility of a vascular changes which may lead to memory loss. Her physical exam today was grossly non concerning though her Dallas score which was performed with a medical hospital sales today showed some signs of cognitive impairment. Based on her history and Dallas screening today, I would like to obtain an amyloid PET scan to rule out Alzheimer's versus other forms of dementia. Unfortunately, she can not have an MRI due to an implantable device. Pending results of PET scan, we could consider start of on therapy versus send her for further testing including neuropsych testing. Vascular dementia vs. Alzheimers Will order Amyloid PET (cannot have an MRI due to history of implantable device.) Could consider formal neuropsych testing Follow-up after PET scan Today's visit took a total of 70 minutes including new prior records, obtaining detailed history, physical exam, memory screening/formal Dallas testing with use of a medical hospital sales, and explanation of plan to the patient and her Labs: Coding Level of Care Code New Pt Level 5 (25274) Diagnoses Memory change R41.3
[2025-01-21 09:01] VITALS: BP 132/68; PULSE 67; RESP 16; O2SAT 98
--- OUTSIDE RECORDS SUMMARY | 2025-01-21 10:04 | XMS_ITS | Encounter Summary ---
Author Organization [employer] Address [address] [facility] 7t [place] [address] Care Team Providers Care Enterprise Software Engineer Name Role Phone NameHenry MD Primary Care Provider [phone] Reason for Visit * Reason Comments Med Refill Encounter Details Date Type Department Care Team ([facility] st Contact Info) Description 07/09/2023 Refill [facility] MED & PEDS [address] [place], [place] [phone] Name, MD Henry [address] [place] [address] Chronic pain syndrome Social History Tobacco Use [...] Info) Description 02/05/2025 9:00 AM EDT Telemedicine [facility] MEDICINE [address] [place] [phone] Suni Rodriguez, RN 02/12/2025 9:00 AM EDT Office Visit [facility] ADULT DENTAL [address] [place] [phone] Lorena Cazares DDS [address] [place] [address] 04/14/2025 2:30 PM EST Office Visit [facility] MEDICINE [address] [place] [phone] Name, MD Henry [address] [place] [phone] documented as of this encounter Visit Diagnoses Diagnosis Chronic pain syndrome documented in this encounter Additional Health Concerns Assessment Noted Time PHQ-9 Depression Total Score: 6 09/14/19 23 9:53 AM EDT documented as of this encounter Care Teams Enterprise Software Engineer Relationship Specialty Start Date End Date Name, MD Henry [address] [place] [phone] PCP - General Family Medicine 08/19/15 Finn Galindo Financial AuditorDistribution Center Manager 08/06/23 Mari Carrion Knife CutterDistribution Center Manager 12/03/23 [email or web address] 01/18/24 documented as of this encounter
--- OUTSIDE RECORDS SUMMARY | 2025-01-21 10:04 | XMS_ITS | Encounter Summary ---
Author Organization [employer] Address [address] [facility] 7t [place] [address] Care Team Providers Care Semiconductor Packages Platemaker Name Role Phone Name, Henry BARTLETT Primary Care Provider [phone] Encounter Details Date Type Department Care Team (Latest Contact Info) Description 03/20/2021 Abstract [facility] CONVERSIONS Dental, Provider, DDS Social History Tobacco [...] Care Team ( st Contact Info) Description 02/05/2025 9:00 AM EDT Telemedicine [facility] MEDICINE [address] [place] [phone] Suni Rodriguez, RN 02/12/2025 9:00 AM EDT Office Visit [facility] ADULT DENTAL [address] [place] [phone] Lorena Cazares DDS [address] [place] [phone] 04/14/2025 2:30 PM EST Office Visit [facility] MEDICINE [address] [place] [phone] Name, MD Henry [address] [place] [phone] documented as of this encounter Visit Diagnoses Not on filedocumented in this encounter Care Teams Semiconductor Packages Platemaker Relationship Specialty Start Date End Date Name, MD Henry [address] [place] [phone] PCP - General Family Medicine 08/19/15 Finn Galindo Corporate Financial AnalystOrthotist/Prosthetist 08/06/23 Mari Carrion Manager NeonatalOrthotist/Prosthetist 12/03/23 Chiquita 01/18/24 documented as of this encounter
--- OUTSIDE RECORDS SUMMARY | 2025-01-21 10:04 | XMS_ITS | Encounter Summary ---
Author Organization [employer] Address 75 [facility] 7t [place] [address] Care Team Providers Care Diamond Mounter Name Role Phone Name, Henry BARTLETT Primary Care Provider [phone] Reason for Visit * Reason Comments Med Refill Encounter Details Date Type Department Care Team ([facility] st Contact Info) Description 11/25/2023 Refill [facility] [address] [place], [place] [phone] Name, MD Henry 230 [place] [address] Iron deficiency anemia, unspecified iron deficiency anemia [...] Info) Description 02/05/2025 9:00 AM EDT Telemedicine [facility] MEDICINE [address] [place] [address] 88883 Suni Rodriguez RN 02/12/2025 9:00 AM EDT Office Visit [facility] ADULT DENTAL [address] [place] [address] 98[address] Lorena Cazares, DDS [address] [place] [address] 04/14/2025 2:30 PM EST Office Visit [facility] MEDICINE [address] [place] [address] Name, MD Henry [address] [place] [address] documented as of this encounter Visit Diagnoses Diagnosis Iron deficiency anemia, unspecified iron deficiency anemia type documented in this encounter Additional Health Concerns Assessment Noted Time PHQ-9 Depression Total Score: 6 09/14/19 23 9:53 AM EDT documented as of this encounter Care Teams Diamond Mounter Relationship Specialty Start Date End Date Name, MD Henry [address] [place] [address] PCP - General Family Medicine 08/19/15 Finn Galindo Head ChopperGlue Bone Crusher 08/06/23 Mari Carrion Certified Medical Technician AssistantGlue Bone Crusher 12/03/23 [id number] 01/18/24 documented as of this encounter
--- OUTSIDE RECORDS SUMMARY | 2025-01-21 10:04 | XMS_ITS | Encounter Summary ---
Author Organization [employer] Address 75 [facility] 7t [place] [address] Care Team Providers Care Care Professional Name Role Phone NameHenry MD Primary Care Provider [phone] Reason for Visit * Reason Onset Date Comments Prior Authorization 09/18/2023 Encounter Details Date Type Department Care Team (Late st Contact Info) Description 09/18/[address] [facility] MEDICINE [address] [place], [place] [phone] Name, MD Herny 230 [place] [address] Prior Authorization Social History Tobacco Use Types [...] 100 MG capsule unsure if medication needed PA.Public Relations Specialist spoke with pharmacy in which they stated medication needs a PA renewal. documented in this encounter Plan of Treatment Upcoming Encounters Date Type Department Care Team (Late st Contact Info) Description 02/05/2025 9:[address] [facility] MEDICINE [address] [place] [address] Suni Rodriguez, EDWARD 02/12/2025 9:00 AM EDT Office Visit [facility] ADULT DENTAL [address] [place] [address] 34693 Lorena Cazares DDS 230 [place] [address] 04/14/2025 2:30 PM EST Office Visit [facility] MEDICINE [address] [place] [address] 19021 Name, MD Henry 230 [place] [address] documented as of this encounter Visit Diagnoses Not on filedocumented in this encounter Additional Health Concerns Assessment Noted Time PHQ-9 Depression Total Score: 6 09/14/19 23 9:53 AM EDT documented as of this encounter Care Teams Care Professional Relationship Specialty Start Date End Date Name, MD Henry 230 [facility] [place] [address] PCP - General Family Medicine 08/19/15 Finn Galindo Netbackup AdminCentral Office Equipment Engineer 08/06/23 Mari Carrion Orthotics Prosthetics TechnicianCentral Office Equipment Engineer 12/03/23 Chiquita 01/18/24 documented as of this encounter
--- OUTSIDE RECORDS SUMMARY | 2025-01-21 10:04 | XMS_ITS | Encounter Summary ---
Author Organization [employer] Address 75 [facility] 7t [place] [address] Care Team Providers Care Sfdc Technical Architect Name Role Phone Name, Henry BARTLETT Primary Care Provider [phone] Reason for Visit * Reason Comments Med Refill Encounter Details Date Type Department Care Team ([facility] st Contact Info) Description 07/09/2024 Refill [facility] MEDICINE 230 [place], [place] [phone] Name, MD Henry 230 [place] [address] Chronic pain syndrome Social History Tobacco Use [...] 02/05/2025 9:00 AM EDT Telemedicine [facility] MEDICINE [address] [place] [address] 53354 Suni Rodriguez, RN 02/12/2025 9:00 AM EDT Office Visit [facility] ADULT DENTAL [address] [place] [address] 00727 Lorena Cazares DDS [address] [place] [address] 9[address] 04/14/2025 2:30 PM EST Office Visit [facility] MEDICINE [address] [place] [address] 99726 Name, MD Henry [address] [place] [address] documented as of this encounter Visit Diagnoses Diagnosis Chronic pain syndrome documented in this encounter Additional Health Concerns Assessment Noted Time PHQ-9 Depression Total Score: 6 09/14/19 23 9:53 AM EDT documented as of this encounter Care Teams Sfdc Technical Architect Relationship Specialty Start Date End Date Name, MD Henry [address] [place] [address]951 PCP - General Family Medicine 08/19/15 Finn Galindo Heel ScourerWool Carder 08/06/23 Mari Carrion Drawing Machine OperatorWool Carder 12/03/23 [id number] 01/18/24 documented as of this encounter
--- OUTSIDE RECORDS SUMMARY | 2025-01-21 10:04 | XMS_ITS | Encounter Summary ---
Author Organization [employer] Address 75 [facility] 7t [place] [address] Care Team Providers Care Financial Assistance Specialist Name Role Phone NameHenry MD Primary Care Provider [phone] Reason for Visit * Reason Comments Med Refill Encounter Details Date Type Department Care Team ([facility] st Contact Info) Description 08/05/2024 Refill [facility] CHC MED & PEDS [address] [place], [place] [phone] Name, MD Henry 230 [place] [address] Chronic pain syndrome Social History Tobacco Use [...] Info) Description 02/05/2025 9:00 AM EDT Telemedicine [facility] MEDICINE [address] [place] [address] Suni Rodriguez, RN 02/12/2025 9:00 AM EDT Office Visit [facility] ADULT DENTAL [address] [place] [address] 00358 Lorena Cazares DDS [address] [place] [address] 04/14/2025 2:30 PM EST Office Visit [facility] MEDICINE [address] [place] [address] 24402 Name, MD Henry [address] [place] [address] documented as of this encounter Visit Diagnoses Diagnosis Chronic pain syndrome documented in this encounter Additional Health Concerns Assessment Noted Time PHQ-9 Depression Total Score: 6 09/14/19 23 9:53 AM EDT documented as of this encounter Care Teams Financial Assistance Specialist Relationship Specialty Start Date End Date Name, MD Henry [address] [place] [address] PCP - General Family Medicine 08/19/15 Finn Galindo Disaster Recovery ConsultantRfid Systems Architect 08/06/23 Mari Carrion Arboreal ScientistRfid Systems Architect 12/03/23 [id number] 01/18/24 documented as of this encounter
--- OUTSIDE RECORDS SUMMARY | 2025-01-21 10:04 | XMS_ITS | Encounter Summary ---
Author Organization [employer] Address 75 [facility] 7t [place] [address] Care Team Providers Care Staff Assistant Name Role Phone Name, Henry BARTLETT Primary Care Provider [phone] Encounter Details Date Type Department Care Team (Late st Contact Info) Description 05/09/2022 [facility] Only [facility] 230 [place], [place] [phone] Darlyn Pagan RN 230 [place] [address] Social History Tobacco Use Types Packs/Day Years [...] Department Care Team (Late Contact Info) Description 02/05/2025 9:00 AM EDT Telemedicine [facility] MEDICINE 230 [place], [place] [phone] Suni Rodriguez, EDWARD 02/12/2025 9:00 AM EDT Office Visit [facility] ADULT DENTAL [address] [place], [place] [phone] Lorena Cazares DDS 230 [place], [place] [phone] 04/14/2025 2:30 PM EST Office Visit [facility] MEDICINE [address] [place], [place] [phone] Name, MD Henry 230 [place], [place] [phone] documented as of this encounter Visit Diagnoses Not on filedocumented in this encounter Care Teams Staff Assistant Relationship Specialty Start Date End Date Name, MD Henry Kishan [place], [place] [phone] PCP - General Family Medicine 08/19/15 Finn Galindo Dynamics Ax Solution ArchitectCartography Teacher 08/06/23 Mari Carrion Plumbing ManagerCartography Teacher 12/03/23 Chiquita 01/18/24 documented as of this encounter
--- OUTSIDE RECORDS SUMMARY | 2025-01-21 10:04 | XMS_ITS | Encounter Summary ---
Author Organization [employer] Address 75 [facility] 7t [place] [address] Care Team Providers Care Dog License Officer Supervisor Name Role Phone NameHenry MD Primary Care Provider [phone] Reason for Visit * Reason Comments Med Refill Encounter Details Date Type Department Care Team ([facility] st Contact Info) Description 08/05/2023 Refill [facility] CHC MED & PEDS [address] [place], [place] [phone] Name, MD Henry 230 [place] [address] Chronic pain syndrome Social History Tobacco Use [...] Info) Description 02/05/2025 9:00 AM EDT Telemedicine [facility] MEDICINE [address] [place] [address] 936[address] Suni Rodriguez, RN 02/12/2025 9:00 AM EDT Office Visit [facility] ADULT DENTAL [address] [place] [address] Lorena Cazares DDS [address] [place] [address] 04/14/2025 2:30 PM EST Office Visit [facility] MEDICINE [address] [place] [address] 7[address]12 Name, MD Henry [address] [place] [address] 17298 documented as of this encounter Visit Diagnoses Diagnosis Chronic pain syndrome documented in this encounter Additional Health Concerns Assessment Noted Time PHQ-9 Depression Total Score: 6 09/14/19 23 9:53 AM EDT documented as of this encounter Care Teams Dog License Officer Supervisor Relationship Specialty Start Date End Date Name, MD Henry [address] [place] [address] PCP - General Family Medicine 08/19/15 Finn Galindo Credit Reporting ClerkSide Door Worker 08/06/23 Mari Carrion Turkey BonerSide Door Worker 12/03/23 [id number] 01/18/24 documented as of this encounter
--- OUTSIDE RECORDS SUMMARY | 2025-01-21 10:05 | XMS_ITS | Encounter Summary ---
Author Organization [employer] Address 75 [facility] 7t [place] [address] Care Team Providers Care Shop Mechanic Helper Name Role Phone Name, Henry BARTLETT Primary Care Provider [phone] Reason for Visit * Reason Onset Date Comments FYI 12/02/2023 Encounter Details Date Type Department Care Team ([facility] st Contact Info) Description 12/02/2023 Telephone [facility] MEDICINE 230 [place], [place] [phone] Name, MD Henry 230 [place] [address] FYI Social History Tobacco Use Types Packs/Day [...] Info) Description 02/05/2025 9:00 AM EDT Telemedicine [facility] MEDICINE [address] [place] [address] 03668 Suni Rodriguez RN 02/12/2025 9:00 AM EDT Office Visit [facility] ADULT DENTAL [address] [place] [address] 56264 Lorena Cazares, DDS 230 [place] [address] 04/14/2025 2:30 PM EST Office Visit [facility] MEDICINE [address] [place] [address] 77794 Name, MD Henry 230 [place] [address] documented as of this encounter Visit Diagnoses Not on filedocumented in this encounter Additional Health Concerns Assessment Noted Time PHQ-9 Depression Total Score: 6 09/14/19 23 9:53 AM EDT documented as of this encounter Care Teams Shop Mechanic Helper Relationship Specialty Start Date End Date Name, MD Henry 230 [place] [address] PCP - General Family Medicine 08/19/15 Finn Galindo Topstitcher LockstitchIndependent Crop Consultant 08/06/23 Mari Carrion Pinion PolisherIndependent Crop Consultant 12/03/23 Chiquita 01/18/24 documented as of this encounter
--- OUTSIDE RECORDS SUMMARY | 2025-01-21 10:05 | XMS_ITS | Encounter Summary ---
Author Organization [employer] Address 75 [facility] 7t [place] [address] Care Team Providers Care Sediment Remediation Consultant Name Role Phone NameHenry MD Primary Care Provider Reason for Visit * Reason Onset Date Comments Results 10/22/2023 Encounter Details Date Type Department Care Team ([facility] st Contact Info) Description 10/22/2023 Telephone [facility] MEDICINE [address] [place], [place] [phone] Name, MD Henry 230 [place] [address] Results Social History Tobacco Use Types Packs/Day [...] Info) Description 02/05/2025 9:00 AM EDT Telemedicine [facility] MEDICINE [address] [place] [address] 52[address] Suni Rodriguez RN 02/12/2025 9:00 AM EDT Office Visit [facility] ADULT DENTAL [address] [place] [address] Mason-Ramesh, Lorena, DDS 230 [place] [address] 04/14/2025 2:30 PM EST Office Visit [facility] MEDICINE [address] [place] [address] 24864 NameHenry MD [address] [place] [address] 9[address] documented as of this encounter Visit Diagnoses Not on filedocumented in this encounter Additional Health Concerns Assessment Noted Time PHQ-9 Depression Total Score: 6 09/14/19 23 9:53 AM EDT documented as of this encounter Care Teams Sediment Remediation Consultant Relationship Specialty Start Date End Date NameHenry MD 230 [place] [address] PCP - General Family Medicine 08/19/15 Finn Galindo Home Health Nurse Licensed PracticalClient Relations Associate 08/06/23 Mari Carrion Director TreasurerClient Relations Associate 12/03/23 Chiquita 01/18/24 documented as of this encounter
--- OUTSIDE RECORDS SUMMARY | 2025-01-21 10:05 | XMS_ITS | Encounter Summary ---
Author Organization [employer] Address 75 [facility] 7t [place] [address] Care Team Providers Care Engineering Assistant Name Role Phone Name, Henry BARTLETT Primary Care Provider [phone] Reason for Visit * Reason Comments Med Refill Encounter Details Date Type Department Care Team ([facility] st Contact Info) Description 01/18/2025 Refill [facility]EDS [address] [place], [place] [phone] Name, MD Henry 230 [place] [address] Heartburn Social History Tobacco Use Types Packs/Day Years [...] Info) Description 02/05/2025 9:00 AM EDT Telemedicine [facility] MEDICINE [address] [place] [address] Suni Rodriguez, EDWARD 02/12/2025 9:00 AM EDT Office Visit [facility] ADULT DENTAL [address] [place] [address] 18901 Lorena Cazares DDS [address] [place] [address] 48[address] 04/14/2025 2:30 PM EST Office Visit [facility] MEDICINE [address] [place] [address] 27907 Henry Bernardo MD [address] [place] [address] 12773 documented as of this encounter Visit Diagnoses Diagnosis Heartburn documented in this encounter Additional Health Concerns Assessment Noted Time PHQ-9 Depression Total Score: 24 025 11:00 AM EDT documented as of this encounter Care Teams Engineering Assistant Relationship Specialty Start Date End Date Henry Bernardo MD [address] [place] [address] 84620 PCP - General Family Medicine 08/19/15 Finn Galindo General Service OfficerSeeing Eye Dog Teacher 08/06/23 Mari Carrion Ceo Ziff DavisSeeing Eye Dog Teacher 12/03/23 Chiquita 01/18/24 documented as of this encounter
--- OUTSIDE RECORDS SUMMARY | 2025-01-21 10:05 | XMS_ITS | Encounter Summary ---
Author Organization [employer] Address 75 [facility] 7t [place] [address] Care Team Providers Care Drafting Technician Name Role Phone NameHenry MD Primary Care Provider [phone] Reason for Visit * Reason Onset Date Comments FYI 12/17/2023 Encounter Details Date Type Department Care Team ([facility] st Contact Info) Description 12/17/2023 Telephone [facility] MEDICINE 230 [place], [place] [phone] Name, MD Henry 230 [place] [address] FYI Social History Tobacco Use Types Packs/Day [...] Vasquez RN - 12/17/2023 3:27 PM EDT EU[facility] Apt. Is already cancelled. * Telephone Encounter - Rocky Talamantes - 12/17/2023 9:38 AM EDT Tc from pt calling in regards to upcoming appt with Suni stating she is currently in Rehab for PT and OT due to foot injury and states cannot make it to upcoming appts at the moment. Rehab pt is being seen at is the [facility] ([address] [place] [address]) Rehab documented in this encounter Plan of Treatment Upcoming Encounters Date Type Department Care Team (Late st Contact Info) Description 02/05/2025 9:00 AM EDT Telemedicine [facility] MEDICINE [address] [place] [address] Suni Rodriguez RN 02/12/2025 9:00 AM EDT Office Visit [facility] ADULT DENTAL [address] [place] [address] Lorena Cazares DDS [address] [place] [address] 04/14/2025 2:30 PM EST Office Visit [facility] MEDICINE [address] [place] [address] Name, MD Henry 230 [place] [address] documented as of this encounter Visit Diagnoses Not on filedocumented in this encounter Additional Health Concerns Assessment Noted Time PHQ-9 Depression Total Score: 6 09/14/19 23 9:53 AM EDT documented as of this encounter Care Teams Drafting Technician Relationship Specialty Start Date End Date Name, [place] [address] PCP - General Family Medicine 08/19/15 Finn Galindo Can CapperWelcome Wagon Hostess 08/06/23 Mari Carrion Marketing Communications AssociateWelcome Wagon Hostess 12/03/23 Chiquita 01/18/24 documented as of this encounter
--- OUTSIDE RECORDS SUMMARY | 2025-01-21 10:05 | XMS_ITS | Encounter Summary ---
Author Organization [employer] Address 75 [facility] 7t [place] [address] Care Team Providers Care Counseling Center Manager Name Role Phone Name, Henry BARTLETT Primary Care Provider [phone] Reason for Visit * Reason Comments Med Refill Encounter Details Date Type Department Care Team (Late st Contact Info) Description 11/19/2022 Refill [facility] MEDICINE [address] [place] [address] [phone] Name, MD Henry 230 [place] [address] Chronic pain syndrome Social History Tobacco Use [...] Info) Description 02/05/2025 9:00 AM EDT Telemedicine [facility] MEDICINE 230 [place] [address] Suni Rodriguez, EDWARD 02/12/2025 9:00 AM EDT Office Visit [facility] ADULT DENTAL [address] [place] [address] Lorena Cazares DDS [address] [place] [address] 04/14/2025 2:30 PM EST Office Visit [facility] MEDICINE [address] [place] [address] Name, MD Henry 230 [place] [address] documented as of this encounter Visit Diagnoses Diagnosis Chronic pain syndrome documented in this encounter Additional Health Concerns Assessment Noted Time PHQ-9 Depression Total Score: 6 09/14/19 23 9:53 AM EDT documented as of this encounter Care Teams Counseling Center Manager Relationship Specialty Start Date End Date Name, MD Henry [address] [place] [address]59 PCP - General Family Medicine 08/19/15 Finn Galindo Biofuels Plant Construction WorkerSenior Mainframe Developer 08/06/23 Mari Carrion Hazardous Waste Management SpecialistSenior Mainframe Developer 12/03/23 Chiquita 01/18/24 documented as of this encounter
--- OUTSIDE RECORDS SUMMARY | 2025-01-21 10:05 | XMS_ITS | Encounter Summary ---
Author Organization [employer] Address 75 [facility] 7t [place] [address] Care Team Providers Care Gear Nicker Name Role Phone NameHenry MD Primary Care Provider Reason for Visit * Reason Onset Date Comments Medical Question 09/18/2022 Encounter Details Date Type Department Care Team ([facility] st Contact Info) Description 09/18/2022 Telephone [facility] MEDICINE 230 [place], [place] [phone] Name, MD Henry 230 [place] [address] Medical Question Social History Tobacco Use Types [...] a heart monitor Please contact pt at [phone] Mauritian Speaker documented in this encounter Plan of Treatment Upcoming Encounters Date Type Department Care Team (Late st Contact Info) Description 02/05/2025 9:00 AM EDT Telemedicine [facility] MEDICINE 230 [place] [address] Suni Rodriguez, EDWARD 02/12/2025 9:00 AM EDT Office Visit [facility] ADULT DENTAL [address] [place] [address] Mason-RameshLorena luna, DDS 230 [place] [address] 04/14/2025 2:30 PM EST Office Visit [facility] MEDICINE [address] [place] [address] 8[address] Name, MD Henry [address] [place] [address] documented as of this encounter Visit Diagnoses Not on filedocumented in this encounter Additional Health Concerns Assessment Noted Time PHQ-9 Depression Total Score: 6 09/14/19 23 9:53 AM EDT documented as of this encounter Care Teams Gear Nicker Relationship Specialty Start Date End Date Name, MD Henry [address] [place] [address] PCP - General Family Medicine 08/19/15 Finn Galindo Human Service WorkerInformation Technology Intern 08/06/23 Mari Carrion Pulping Machine OperatorInformation Technology Intern 12/03/23 Chiquita 01/18/24 documented as of this encounter
--- OUTSIDE RECORDS SUMMARY | 2025-01-21 10:05 | XMS_ITS | Encounter Summary ---
Author Organization [employer] Address 75 [facility] 7t [place] [address] Care Team Providers Care Muffler Hand Name Role Phone Name, Henry BARTLETT Primary Care Provider [phone] Reason for Visit * Reason Comments Med Refill Encounter Details Date Type Department Care Team (Late st Contact Info) Description 01/25/2023 Refill [facility] MEDICINE [address] [place] [address] [phone] Name, MD Henry [address] [place] [address] Diabetic polyneuropathy associated with type 2 diabetes mellitus ([facility]) Social History Tobacco Use Types Packs/Day Years [...] Info) Description 02/05/2025 9:00 AM EDT Telemedicine [facility] MEDICINE [address] [place] [address] [phone] Suni Rodriguez RN 02/12/2025 9:00 AM EDT Office Visit [facility] ADULT DENTAL 230 [place], [place] [phone] Lorena Cazares DDS 230 [place], [place] [phone] 04/14/2025 2:30 PM EST Office Visit [facility] MEDICINE 230 [place], [place] [phone] Name, MD Henry 230 [place] [address] documented as of this encounter Visit Diagnoses Diagnosis Diabetic polyneuropathy associated with type 2 diabetes mellitus ([facility]) documented in this encounter Additional Health Concerns Assessment Noted Time PHQ-9 Depression Total Score: 6 09/14/19 23 9:53 AM EDT documented as of this encounter Care Teams Muffler Hand Relationship Specialty Start Date End Date Name, MD Henry [address] [place] [address] PCP - General Family Medicine 08/19/15 Finn Galindo Machine TracerSenior Engineering Manager 08/06/23 Mari Carrion Crop Farm WorkersSenior Engineering Manager 12/03/23 Chiquita 01/18/24 documented as of this encounter
--- OUTSIDE RECORDS SUMMARY | 2025-01-21 10:05 | XMS_ITS | Encounter Summary ---
Author Organization [employer] Address [address] [facility] 7t [place] [address] Care Team Providers Care Emergency Department Aide Name Role Phone Name, Henry BARTLETT Primary Care Provider [phone] Reason for Visit * Reason Comments Med Refill Encounter Details Date Type Department Care Team (Late st Contact Info) Description 02/08/2023 Refill [facility] MED & PEDS [address] [place] [address] Name, MD Henry [address] [place] [phone] Chronic pain syndrome Social History Tobacco Use [...] Info) Description 02/05/2025 9:00 AM EDT Telemedicine [facility] MEDICINE [address] [place] [address] [phone] Suni Rodriguez RN 02/12/2025 9:00 AM EDT Office Visit [facility] ADULT DENTAL [address] [place] [address] Lorena Cazares, TRINITYS [address] [place] [address] 04/14/2025 2:30 PM EST Office Visit [facility] MEDICINE [address] [place] [address] Name, [place] [address] documented as of this encounter Visit Diagnoses Diagnosis Chronic pain syndrome documented in this encounter Additional Health Concerns Assessment Noted Time PHQ-9 Depression Total Score: 6 09/14/19 23 9:53 AM EDT documented as of this encounter Care Teams Emergency Department Aide Relationship Specialty Start Date End Date Name, [place] [address] PCP - General Family Medicine 08/19/15 Finn Galindo Interior Surface Insulation WorkerCage Operator 08/06/23 Mari Carrion Want Ad ClerkCage Operator 12/03/23 Chiquita 01/18/24 documented as of this encounter
--- OUTSIDE RECORDS SUMMARY | 2025-01-21 10:05 | XMS_ITS | Encounter Summary ---
Author Organization [employer] Address 75 [facility] 7t [place] [address] Care Team Providers Care Staff Electronic Warfare Officer Name Role Phone Name, Henry BARTLETT Primary Care Provider Encounter Details Date Type Department Care Team (Late st Contact Info) Description 11/01/2022 Orders Only [facility] MEDICINE [address] [place] [address] Haley Gardner LPN Social History Tobacco Use [...] Info) Description 02/05/2025 9:00 AM EDT Telemedicine [facility] MEDICINE [address] [place], [place] [phone] Suni Rodriguez, RN 02/12/2025 9:00 AM EDT Office Visit [facility] ADULT DENTAL [address] [place] [address] Lorena Cazares DDS [address] [place], [place] [phone] 04/14/2025 2:30 PM EST Office Visit [facility] MEDICINE [address] [place] [address] Name, MD Henry [address] [place] [address] documented as of this encounter Visit Diagnoses Not on filedocumented in this encounter Additional Health Concerns Assessment Noted Time PHQ-9 Depression Total Score: 6 09/14/19 23 9:53 AM EDT documented as of this encounter Care Teams Staff Electronic Warfare Officer Relationship Specialty Start Date End Date Name, [place] [address] PCP - General Family Medicine 08/19/15 Finn Galindo Residue Furnace OperatorBusiness Instructor 08/06/23 Mari Carrion Client Solutions DirectorBusiness Instructor 12/03/23 Chiquita 01/18/24 documented as of this encounter
--- OUTSIDE RECORDS SUMMARY | 2025-01-21 10:05 | XMS_ITS | Encounter Summary ---
Author Organization [employer] Address 75 [facility] 7t [place] [address] Care Team Providers Care Conduit Mechanic Name Role Phone Name, Henry BARTLETT Primary Care Provider [phone] Encounter Details Date Type Department Care Team (Late st Contact Info) Description 10/23/2022 Abstract [facility] MEDICINE [address] [place] [phone] Name, MD Henry [address] [place] [phone] Social History Tobacco Use Types Packs/Day Years [...] Info) Description 02/05/2025 9:00 AM EDT Telemedicine [facility] MEDICINE [address] [place] [address] [phone] Suni Rodriguez RN 02/12/2025 9:00 AM EDT Office Visit [facility] ADULT DENTAL [address] [place] [address] [phone] Lorena Cazares DDS [address] [place] [address], [place] [address] 04/14/2025 2:30 PM EST Office Visit [facility] MEDICINE [place] [phone] [place], [place] [address] documented as of this encounter Procedures Procedure Name Priority Date/Time Associated Diagnosis Comments COLONOSCOPY Routine 04/12/2020 10:05 AM EST documented in this encounter Results * Colonoscopy (04/12/2020 10:05 AM EST) Colonoscopy Normal Normal Narrative Amina Stroud - 04/12/2020 10:05 AM EST Recommended 5 year follow up ([facility]) Historical Provider HEALTH MAINTENANCE Final Result documented in this encounter Visit Diagnoses Not on filedocumented in this encounter Additional Health Concerns Assessment Noted Time PHQ-9 Depression Total Score: 6 09/14/19 23 9:53 AM EDT documented as of this encounter Care Teams Conduit Mechanic Relationship Specialty Start Date End Date Name, MD Henry Kishan [place] [phone] PCP - General Family Medicine 08/19/15 Finn Galindo Kier TenderCandle Molder Machine 08/06/23 Mari Carrion Stone CutterCandle Molder Machine 12/03/23 Chiquita 01/18/24 documented as of this encounter
--- OUTSIDE RECORDS SUMMARY | 2025-01-21 10:05 | XMS_ITS | Encounter Summary ---
Author Organization [employer] Address 75 [facility] 7t [place] [address] Care Team Providers Care Foreign Exchange Student Coordinator Name Role Phone Name, Henry BARTLETT Primary Care Provider [phone] Reason for Visit * Reason Comments Med Refill Encounter Details Date Type Department Care Team (Late st Contact Info) Description 09/17/2022 Refill [facility] MEDICINE [address] [place], [place] [phone] Name, MD Henry [address] [place] [address] Social History Tobacco Use Types Packs/Day Years [...] Info) Description 02/05/2025 9:00 AM EDT Telemedicine [facility] MEDICINE [address] [place], [place] [phone] Suni Rodriguez, RN 02/12/2025 9:00 AM EDT Office Visit [facility] ADULT DENTAL [address] [place], [place] [phone] Lorena Cazares, DDS [address] [place] [address] 04/14/2025 2:30 PM EST Office Visit [facility] MEDICINE [address] [place] [address] Name, MD Henry [address] [place] [address] documented as of this encounter Visit Diagnoses Not on filedocumented in this encounter Additional Health Concerns Assessment Noted Time PHQ-9 Depression Total Score: 6 09/14/19 23 9:53 AM EDT documented as of this encounter Care Teams Foreign Exchange Student Coordinator Relationship Specialty Start Date End Date Name, MD Henry [address] [place] [address] PCP - General Family Medicine 08/19/15 Finn Galindo Ed Special Education TeacherSteak Sauce Maker 08/06/23 Mari Carrion Child Guidance CounselorSteak Sauce Maker 12/03/23 Chiquita 01/18/24 documented as of this encounter
--- OUTSIDE RECORDS SUMMARY | 2025-01-21 10:05 | XMS_ITS ---
Author Organization [employer] Address [address] [place] [address] 7t [place] [address] Care Team Providers Care Sporting Goods Sales Associate Name Role Phone Name, Henry BARTLETT Primary Care Provider [phone] MILL HAND PLATE M[employer] Status:Enrolled (Active) Start date:06/14/2022 Enrollment date:06/14/2022 Enrollment reason:Identified using pharmacy data Current support & services provided:Tier 4 (MILL HAND PLATE MILL) Case Team Name Relationship Phone Suni Rodriguez RN(Responsible Staff) Registered Gwen thompson Continued Care and Services Coordination
--- OUTSIDE RECORDS SUMMARY | 2025-01-21 10:05 | XMS_ITS | Encounter Summary ---
Author Organization [employer] Address [address] [facility] 7t [place] [address] Care Team Providers Care Home Restoration Service Supervisor Name Role Phone Name, Henry BARTLETT Primary Care Provider [phone] Reason for Visit * Reason Comments Med Refill Encounter Details Date Type Department Care Team (Late st Contact Info) Description 12/31/2022 Refill [facility] MEDICINE [address] [place] [address] Name, MD Henry [address] [place] [address] Social History Tobacco Use Types Packs/Day Years [...] 02/05/2025 9:00 AM EDT Telemedicine [facility] MEDICINE [address] [place] [address] Suni Rodriguez RN 02/12/2025 9:00 AM EDT Office Visit [facility] ADULT DENTAL [address] [place] [address] Lorena Cazares, TRINITYS [address] [place], [place] [phone] 04/14/2025 2:30 PM EST Office Visit [facility] MEDICINE [address] [place] [address] Name, MD Henry [address] [place], [place] [phone] documented as of this encounter Visit Diagnoses Not on filedocumented in this encounter Additional Health Concerns Assessment Noted Time PHQ-9 Depression Total Score: 6 09/14/19 23 9:53 AM EDT documented as of this encounter Care Teams Home Restoration Service Supervisor Relationship Specialty Start Date End Date Name, MD Henry [address] [place] [address] PCP - General Family Medicine 08/19/15 Finn Galindo MounterBooth Manager 08/06/23 Mari Carrion Nail ExpertBooth Manager 12/03/23 Chiquita 01/18/24 documented as of this encounter
--- OUTSIDE RECORDS SUMMARY | 2025-01-21 10:05 | XMS_ITS | Encounter Summary ---
Author Organization [employer] Address [address] [facility] 7t [place] [address] Care Team Providers Care Atlassian Administrator Name Role Phone Name, Henry BARTLETT Primary Care Provider [phone] Reason for Visit * Reason Comments Med Refill Encounter Details Date Type Department Care Team (Late st Contact Info) Description 09/15/2022 Refill [facility] MEDICINE [address] [place], [place] [phone] Name, MD Henry [address] [place] [address] Chronic pain syndrome Social History Tobacco Use [...] Info) Description 02/05/2025 9:00 AM EDT Telemedicine [facility] MEDICINE [address] [place] [address] Suni Rodriguez, EDWARD 02/12/2025 9:00 AM EDT Office Visit [facility] ADULT DENTAL [address] [place] [address] Lorena Cazares, DDS [address] [place] [address] 04/14/2025 2:30 PM EST Office Visit [facility] MEDICINE [address] [place] [address] Name, MD Henry [address] [place] [address] documented as of this encounter Visit Diagnoses Diagnosis Chronic pain syndrome documented in this encounter Additional Health Concerns Assessment Noted Time PHQ-9 Depression Total Score: 6 09/14/19 23 9:53 AM EDT documented as of this encounter Care Teams Atlassian Administrator Relationship Specialty Start Date End Date Name, MD Henry [address] [place] [address] PCP - General Family Medicine 08/19/15 Finn Galindo Tuber Machine Operator HelperBudget Examiner 08/06/23 Mari Carrion Chain Saw MechanicBudget Examiner 12/03/23 Chiquita 01/18/24 documented as of this encounter
--- OUTSIDE RECORDS SUMMARY | 2025-01-21 10:05 | XMS_ITS | Encounter Summary ---
Author Organization [employer] Address 75 [facility] 7t [place] [address] Care Team Providers Care Information Systems Audit Manager Name Role Phone Name, Henry BARTLETT Primary Care Provider [phone] Reason for Visit * Reason Comments Med Refill Encounter Details Date Type Department Care Team ([facility] st Contact Info) Description 04/30/2024 Refill [facility] MEDICINE [address] [place], [place] [phone] Yue Olsen, LANCE [address] [place], [place] [phone] COPD exacerbation (CMS/HCC) Social History Tobacco Use [...] AM EDT Telemedicine [facility] MEDICINE [address] [place] [address] Suni Rodriguez, RN 02/12/2025 9:00 AM EDT Office Visit [facility] ADULT DENTAL [address] [place] [address] Lorena Cazares DDS [address] [place] [address] 04/14/2025 2:30 PM EST Office Visit [facility] MEDICINE [address] [place] [address] Name, MD Henry [address] [place] [address] documented as of this encounter Visit Diagnoses Diagnosis COPD exacerbation ([facility]) Obstructive chronic bronchitis with exacerbation documented in this encounter Additional Health Concerns Assessment Noted Time PHQ-9 Depression Total Score: 6 09/14/19 23 9:53 AM EDT documented as of this encounter Care Teams Information Systems Audit Manager Relationship Specialty Start Date End Date Name, MD Henry [address] [place] [address] PCP - General Family Medicine 08/19/15 Finn Galindo Manager RevenueLandscaping Specialist 08/06/23 Mari Carrion Ux Research AssociateLandscaping Specialist 12/03/23 [email or web address] 01/18/24 documented as of this encounter
--- OUTSIDE RECORDS SUMMARY | 2025-01-21 10:05 | XMS_ITS | Clinical Summary ---
Author Organization [address] [place] [address] [place] [phone] Phone Care Team Providers Care Copra Sampler Name Role Phone Name, Henry BARTLETT Primary Care Provider [phone] Immunizations Name Administration Dates Next Due Pfizer SARS-CoV-2 COVID-19, mRNA, LNP-S, preservative free 02/28/2021,06/16/2020,05/26/2020 Surgical History Surgery Date Site/Laterality Comments KNEE ARTHROSCOPY PROCEDURE: [place] ARTHROSCOPY AID TX SPINE&/FX KNEE W/O FIXJ HYSTERECTOMY PROCEDURE: HISTORICAL HYSTERECTOMY HERNIA REPAIR PROCEDURE: HISTORICAL HERNIA REPAIR/ING CHOLECYSTECTOMY PROCEDURE: HISTORICAL CHOLECYSTECTOMY ESOPHAGOGASTRODUODENOSCOPY 2002? PROCEDURE: IL ESOPHAGOGASTRODUODENOSCOPY TRANSORAL DIAGNOSTIC; COMMENT: h pylori gatritis? COLONOSCOPY 2004 PROCEDURE: IL COLONOSCOPY FLX DX W/COLLJ SPEC WHEN PFRMD; COMMENT: normal? (done for evaluation of rectal bleeding) ESOPHAGOGASTRODUODENOSCOPY 09/20/2009 PROCEDURE: IL EGD TRANSORAL BIOPSY SINGLE/MULTIPLE; COMMENT: Esophagus normal, bilious fluid in the stomach, antral gastritis-biopsy:mild reactive gastropathy (HPylori-), normal SB TOTAL KNEE ARTHROPLASTY PROCEDURE: HISTORICAL TOTAL KNEE REPLACE; COMMENT: both knees (2010 and 2009) SINUS SURGERY 2010 PROCEDURE: IL UNLISTED PROCEDURE ACCESSORY SINUSES; COMMENT: date approximate; [...] Screening: Colonoscopy 04/15/2022 Hepatitis C Screening 04/15/2022 Osteoporosis Screening (Bone Density Screening) 04/15/2022 Social Influencers of Health Screening 04/15/2022 Diabetes: Annual Urine Albumin-Creatinine Ratio (uACR) 04/19/2022 Hypertension/CHF/CAD Annual BMP Blood Test 04/19/2022 Breast Cancer Screening 05/31/2023 05/31/2021 Depression Screening 05/13/2024 Diabetes: Blood Sugar Control Test (HGBA1C) 07/27/2024 01/28/2024 Falls Risk Assessment 11/27/2024 COVID-19 Vaccine ( season) 2025 04/09/2023, 07/09/2022, 02/28/2021, Additional history exists Influenza Vaccine (#1) 2025 , 03/13/2023, 07/09/2022, Additional history exists Cholesterol Screening (Lipid Panel) 10/15/2028 10/16/2023 DTaP,Tdap,and Td Vaccines (4 - Td or Tdap) 06/24/2029 06/24/2019, 09/27/2008, 09/06/2006 Hepatitis A Vaccines Completed 04/23/2006, 04/24/20 Hepatitis B Vaccines Completed 08/27/2018, 01/22/2013, 06/16/2012, Additional history exists Pneumococcal Vaccine: 50+ Years Completed 08/06/2023, 03/07/2008, 04/09/2005 HIB Vaccines Aged Out No longer eligi [...] Documents on File Type Date Recorded Patient Manager Critical Care Expl anation Health Care Decision (hx) 12/04/2023 AD DONOVAN DIRECTIVE Health Care Decision (hx) 11/11/2023 AD DONOVAN DIRECTIVE Health Care Decision (hx) 11/11/2023 AD DONOVAN DIRECTIVE Health Care Decision (hx) 11/11/2023 AD DONOVAN DIRECTIVE Care Teams Copra Sampler Relationship Specialty Start Date End Date Name, MD Henry [address] [place] [address] PCP - General Internal Medicine 12/05/15
--- OUTSIDE RECORDS SUMMARY | 2025-01-21 10:05 | XMS_ITS | Encounter Summary ---
Author Organization [employer] Address [address] [facility] 7t [place] [address] Care Team Providers Care Deep Well Contractor Name Role Phone Name, Henry BARTLETT Primary Care Provider [phone] Reason for Visit * Reason Onset Date Comments Medication Question 01/01/2023 pregabalin ( Lyrica) 50 MG capsule Encounter Details Date Type Department Care Team ([facility] st Contact Info) Description 01/01/2023 Telephone [facility] MEDICINE [address] [place], [place] [phone] Name, MD Henry [address] [place], [place] [phone] Medication Question (pregabalin (Lyrica) 50 MG capsule//) [...] to go back to100 mh. Patient speaks khmer. documented in this encounter Plan of Treatment Upcoming Encounters Date Type Department Care Team (Late st Contact Info) Description 02/05/2025 9:00 AM EDT Telemedicine [facility] MEDICINE [address] [place] [address] Suni Rodriguez RN 02/12/2025 9:00 AM EDT Office Visit [facility] ADULT DENTAL [address] [place] [address] Lorena Cazares DDS [address] [place] [address] 04/14/2025 2:30 PM EST Office Visit [facility] MEDICINE [address] [place] [address] Name, MD Henry [address] [place] [address] documented as of this encounter Visit Diagnoses Not on filedocumented in this encounter Additional Health Concerns Assessment Noted Time PHQ-9 Depression Total Score: 6 09/14/19 23 9:53 AM EDT documented as of this encounter Care Teams Deep Well Contractor Relationship Specialty Start Date End Date Henry Bernardo MD [address] [place] [address] PCP - General Family Medicine 08/19/15 Finn Galindo Development ConsultantClinical Documentation Improvement Specialist 08/06/23 Mari Carrion Casserole PreparerClinical Documentation Improvement Specialist 12/03/23 Chiquita 01/18/24 documented as of this encounter
--- OUTSIDE RECORDS SUMMARY | 2025-01-21 10:05 | XMS_ITS | Encounter Summary ---
Author Organization [employer] Address 75 [facility] 7t [place] [address] Care Team Providers Care Film Sorter Name Role Phone Name, Henry BARTLETT Primary Care Provider [phone] Encounter Details Date Type Department Care Team (Latest Contact Info) Description 01/19/2025 Travel Social History Tobacco Use Types Packs/Day [...] Info) Description 02/05/2025 9:00 AM EDT Telemedicine [facility] MEDICINE [address] [place] [address] Suni Rodriguez RN 02/12/2025 9:00 AM EDT Office Visit [facility] ADULT DENTAL [address] [place] [address] Lorena Cazares DDS [address] [place] [address] 04/14/2025 2:30 PM EST Office Visit [facility] MEDICINE [address] [place] [address] Name, MD Henry [address] [place] [address] documented as of this encounter Visit Diagnoses Not on filedocumented in this encounter Additional Health Concerns Assessment Noted Time PHQ-9 Depression Total Score: 24 025 11:00 AM EDT documented as of this encounter Care Teams Film Sorter Relationship Specialty Start Date End Date Name, MD Henry [address] [place] [address] PCP - General Family Medicine 08/19/15 Finn Galindo Yield EngineerHardness Inspector 08/06/23 Mari Carrion Cloud EngineerHardness Inspector 12/03/23 Chiquita 01/18/24 documented as of this encounter
--- OUTSIDE RECORDS SUMMARY | 2025-01-21 10:05 | XMS_ITS | Clinical Summary ---
Author Organization [employer] Address [address] [facility] [address] [place] [address] Care Team Providers Care Collection Systems Worker Name Role Phone Name, Henry BARTLETT Primary Care Provider [phone] Allergies Active Allergy Reactions Criticality Noted Date Comments Celecoxib 05/23/2022 Other reaction(s): GI UPSET Ibuprofen Unknown 10/21/2015 Other reaction(s): gi upset Iodinated Contrast Media 05/23/2022 Other reaction(s): anaphylactic shock Iodine Unknown 10/21/2015 Pineapple Itching 12/04/2022 Medications * This document contains information received from the source organization and may not represent a complete record from that organization. Umeclidinium Wilmot (Incruse Ellipta) 62.5 MCG/ACT aerosol powder Inhale 1 puff 1 (one) time each day. Active docusate sodium (Colace) 100 MG capsule Take 1 capsule by mouth every 12 (twelve) hours. Active pantoprazole (ProtoNix) 40 MG EC tablet Take 1 tablet by mouth 1 (one) time each day. Active Misc. Devices (Pulse Oximeter) misc - for Covid and COPD Active Blood Glucose Monitoring Suppl (FreeStyle glucose monitoring) kit 1 each if needed. 1 meter Active nicotine (Nicoderm, Step 2) 14 MG/24HR patch APPLY 1 PATCH TOPICALLY EVERY DAY AND REMOVE AT BEDTIME Active lidocaine (Lidoderm) 5 % patch APPLY 1 PATCH TOPICALLY TO SKIN, LEAVE ON FOR 12 HOURS AND OFF FOR 12 HOURS DIRECTED Active insulin detemir (Levemir) 100 UNIT/ML injectionIndicati ons:Type 2 diabetes mellitus with other specified complication, with long-term current use of insulin ([facility]) Inject 30 Units under the skin Once daily. 10 mL 11 024 2024 Active Fluticasone Furoate-Vilantero l (Breo Ellipta) 100-25 MCG/ACT aerosol powder Inhale 1 Inhalation Once daily. Active traZODone (Desyrel) 100 MG tablet Take 1 tablet (100 mg) by mouth at bedtime. Active albuterol (Ventolin HFA) 108 (90 Base) MCG/ACT inhalerIndication s:Short of breath on exertion Inhale 2 puffs every 6 (six) hours if needed for wheezing. 18 g Active insulin syringe-needle U-100 (UltiCare Insulin Syringe) 31G X 5/16 1 mL misc Use as instructed 100 each 5 025 Active FREESTYLE LITE test stripIndications: Type 2 diabetes mellitus with other specified complication, with long-term current use of insulin ([facility]) TEST BLOOD SUGAR THREE TIMES DAILY 50 strip 025 Active atorvastatin (Lipitor) 20 MG tabletIndications :Hypercholesterol emia TAKE 1 TABLET BY MOUTH EVERY MORNING 90 tablet 025 Active riboflavin (vitamin B2) 100 mg tablet tabletIndications :Hypercholesterol emia TAKE 4 TABLETS BY MOUTH EVERY MORNING 360 tablet 025 Active Aspirin Low Dose 81 MG chewable tablet TAKE 1 TABLET BY MOUTH EVERY MORNING (CHEW) 90 tablet 025 Active metFORMIN (Glucophage) 500 MG tabletIndications :Type 2 diabetes mellitus with other specified complication, with long-term current use of insulin ([facility]) TAKE 1 TABLET BY MOUTH TWICE DAILY IN THE MORNING AND IN THE EVENING WITH FOOD 180 tablet 3 025 Active tamsulosin (Flomax) 0.4 MG 24 hr capsule TAKE 1 CAPSULE BY MOUTH EVERY EVENING 90 capsule 1 025 Active TRUEplus Lancets 33G miscIndications:D iabetic polyneuropathy associated with type 2 diabetes mellitus ([facility]) TEST BLOOD SUGAR THREE TIMES DAILYTEST BLOOD SUGAR THREE TIMES DAILY 100 each 11 05/27/2 025 Active ferrous gluconate (Fergon) 324 (38 Fe) MG tabletIndications :Iron deficiency anemia, unspecified iron deficiency anemia type TAKE 1 TABLET BY MOUTH EVERY MORNING WITH BREAKFAST 90 tablet 1 025 Active lactulose (Chronulac) 10 GM/15ML solution TAKE 15 ML BY MOUTH EVERY DAY 450 mL 5 025 Active cetirizine (ZyrTEC) 10 MG tabletIndications :Seasonal allergies TAKE 1 TABLET BY MOUTH EVERY MORNING 90 tablet 025 Active Azelastine HCl 137 MCG/SPRAY solutionIndicatio ns:Chronic bronchitis, unspecified chronic bronchitis type (CMS/HCC) INHALE 1 SPRAY IN EACH NOSTRIL TWICE DAILY 30 mL 2 025 Active SUMAtriptan (Imitrex) 100 MG tabletIndications :Migraine without status migrainosus, not intractable, unspecified migraine type TAKE 1 TABLET BY MOUTH AT ONSET OF MIGRAINE. MAY REPEAT ONCE AFTER 2 HOURS IF NEEDED 10 tablet 2 025 Active topiramate 50 MG tabletIndications :Migraine without status migrainosus, not intractable, unspecified migraine type TAKE 1 TABLET BY MOUTH TWICE DAILY IN THE MORNING AND AT BEDTIME 60 tablet 025 Active Diclofenac Sodium 1 % gelIndications:Ch ronic low back pain, unspecified back pain laterality, unspecified whether sciatica present APPLY 2 GRAM TOPICALLY TO AFFECTED AREA(S) TWICE DAILY 100 g 025 Active citalopram (CeleXA) 10 MG tablet TAKE 1 TABLET BY MOUTH EVERY DAY 30 tablet 025 Active pregabalin (Lyrica) 100 MG capsuleIndication s:Diabetic polyneuropathy associated with type 2 diabetes mellitus (CMS/HCC) TAKE 1 CAPSULE BY MOUTH THREE TIMES DAILY IN THE MORNING, EVENING, AND BEDTIME 90 capsule 025 Active fluticasone (Flonase) 50 MCG/ACT nasal sprayIndications: Chronic bronchitis, unspecified chronic bronchitis type (CMS/HCC) USE 2 SPRAYS IN EACH NOSTRIL ONCE DAILY DIRECTED 48 g 025 Active oxyCODONE-acetami nophen (Percocet) 7.5-325 MG tabletIndications :Chronic pain syndrome TAKE 1 TABLET BY MOUTH EVERY 8 HOURS NEEDED FOR SEVERE PAIN FOR UP TO 28 DAYS 84 tablet 025 2024 Active albuterol (2.5 MG/3ML) 0.083% nebulizer solution INHALE 1 AMPULE USING A NEBULIZER EVERY 6 HOURS NEEDED FOR WHEEZING OR SHORTNESS OF BREATH 360 mL 3 Active Alcohol Swabs (Alcohol Prep) 70 % padsIndications:D iabetic polyneuropathy associated with type 2 diabetes mellitus (CMS/HCC) TEST BLOOD SUGAR THREE TIMES DAILY 100 each Active amoxicillin (Amoxil) 500 MG capsule Take 4 capsules of amoxicillin 500 mg 1 hour prior dental procedure 12 capsule Active famotidine (Pepcid) 20 MG tabletIndications :Heartburn TAKE 1 TABLET BY MOUTH AT BEDTIME 90 tablet Active losartan (Cozaar) 50 MG tabletIndications :Hypertension, unspecified type Take 1 tablet (50 mg) by mouth Once per day. 90 tablet 025 2025 Active donepezil (Aricept) 10 MG tablet Take 1 tablet (10 mg) by mouth at bedtime. 30 tablet 025 2025 Active Continuous Glucose Chef French (FreeStyle Jimena 3 Drift) device 1 each Once per day. Use as directed for CGM 1 each Active Continuous Glucose Sensor (FreeStyle Jimena 3 Plus Sensor) misc 1 each every 15 days. Apply 1 every 15 days as directed for CGM 2 each Active glucose blood (FreeStyle Precision Richard Test) test strip Use to test blood sugar 3 times daily in case of CGM failure or extremes of BG 100 each 025 2025 Active Alcohol Swabs (Alcohol Prep) 70 % padsIndications:D iabetic polyneuropathy associated with type 2 diabetes mellitus (CMS/HCC) TEST BLOOD SUGAR THREE TIMES DAILY 100 each 024 2024 Discontinued losartan (Cozaar) 50 MG tabletIndications :Hypertension, unspecified type Take 1 tablet (50 mg) by mouth Once per day. 90 tablet 3 024 2024 Discontinued(R eorder (will not trigger notification to Pharmacy)) famotidine (Pepcid) 20 MG tabletIndications :Heartburn TAKE 1 TABLET BY MOUTH AT BEDTIME 90 tablet 3 024 2024 Discontinued fluticasone (Flonase) 50 MCG/ACT nasal sprayIndications: Chronic bronchitis, unspecified chronic bronchitis type (CMS/HCC) USE 2 SPRAYS IN EACH NOSTRIL ONCE DAILY DIRECTED 48 g 1 024 2024 Discontinued albuterol (2.5 MG/3ML) 0.083% nebulizer solution INHALE 1 AMPULE USING A NEBULIZER EVERY 6 HOURS NEEDED FOR WHEEZING 360 mL 3 025 2024 Discontinued donepezil (Aricept) 5 MG tabletIndications :Mild vascular dementia with anxiety (CMS/HCC) Take 1 tablet (5 mg) by mouth at bedtime. 30 tablet 1 025 2024 Discontinued citalopram (CeleXA) 10 MG tablet Take 1 tablet (10 mg) by mouth Once per day. 30 tablet 025 2024 Discontinued pregabalin (Lyrica) 100 MG capsuleIndication s:Diabetic polyneuropathy associated with type 2 diabetes mellitus (CMS/HCC) TAKE 1 CAPSULE BY MOUTH THREE TIMES DAILY IN THE MORNING, EVENING, AND BEDTIME 90 capsule 025 2024 Discontinued oxyCODONE-acetami nophen (Percocet) 7.5-325 MG tabletIndications :Chronic pain syndrome Take 1 tablet by mouth every 8 (eight) hours if needed for severe pain for up to 28 days. Do not start before December 07, 2024. 84 tablet 025 2024 Discontinued donepezil (Aricept) 5 MG tabletIndications :Mild vascular dementia with anxiety (CMS/HCC) TAKE 1 TABLET BY MOUTH EVERY DAY AT BEDTIME 30 tablet 1 025 2024 Discontinued(D ose adjustment) Active Problems Problem Noted Date Diagnosed Date Mild vascular dementia with anxiety 01/19/2025 Dental root caries 01/13/2025 PARAM (generalized anxiety disorder) 11/23/2024 Excessive attrition of teeth, limited to enamel 10/01/2024 Abfraction 10/01/2024 Tooth abrasion 10/01/2024 Stage 3a chronic kidney disease 08/14/2024 Abdominal hernia without obstruction and without gangrene [...] pcp encouraged pt to discuss trulicity then Long-term current use of opiate analgesic 2022 Arthritis 11/29/2022 Cataract of both eyes 11/29/2022 Gastroesophageal reflux disease without esophagi tis 11/29/2022 Hepatitis C virus infection 11/29/2022 Pain of foot 11/29/2022 Chronic bronchitis 03/29/2022 Chronic sinusitis 03/29/2022 MDD (major depressive disord er), recurrent severe, without psychosis 03/29/2022 Epigastric pain 03/29/2022 Seasonal allergic reaction [...] 11/13/2023 03/02/2024 Diabetes mellitus 09/20/2015 01/02/2023 Encounters * This document contains information received from the source organization and may not represent a complete record from that organization. Date Type Department Care Team Description 01/19/2025 1:45 PM EDT Office Visit [facility] MEDICINE [address] [place] [address] Henry Bernardo MD Type 2 diabetes mellitus with other specified complication, with long-term current use of insulin (CMS/[facility]) (Primary Dx); Ingrown toenail; Mild vascular dementia with anxiety (CMS/HCC); Hypertension, unspecified type 01/19/2025 Travel 01/18/2025 Refill [facility]C MED & PEDS [address] [place], [place] [phone] Henry Bernardo MD Heartburn 01/15/2025 Telephone [facility] MEDICINE [address] [place] [address] Henry Bernardo MD CHARTPREP 01/13/2025 9:00 AM EDT Office Visit [facility] ADULT DENTAL [address] [place] [address] Holger Marquez DDS Dental root caries (Primary Dx) 01/09/2025 Refill [facility] MEDICINE [address] [place] [address] Henry Bernardo MD Mild vascular dementia with anxiety (CMS/HCC) 01/08/2025 Refill [facility] MEDICINE [address] [place] [address] Henry Bernardo MD Diabetic polyneuropathy associated with type 2 diabetes mellitus (CMS/HCC) 01/07/2025 Telephone [facility] MEDICINE [address] [place] [phone] Henry Bernardo MD 01/06/2025 Travel 01/06/2025 Refill C MEDICINE [address] [place] [address] Henry Bernardo MD 01/01/2025 Refill C MEDICINE [address] [place] [address] Yue Olsen, LANCE Chronic pain syndrome 12/31/2024 Refill C MEDICINE [address] [place] [address] Henry Bernardo MD Diabetic polyneuropathy associated with type 2 diabetes mellitus ([facility]/HCC); Chronic bronchitis, unspecified chronic bronchitis type ([facility]/HCC) 12/28/2024 Refill [facility] MEDICINE [address] [place] [address] Henry Bernardo MD 12/08/2024 Telephone [facility] MEDICINE [address] [place] [address] Henry Bernardo MD Med Refill 12/08/2024 Refill [facility] MED & PEDS [address] [place], [place] [phone] Yue Olsen NP Chronic low back pain, unspecified back pain laterality, unspecified whether sciatica present 12/03/2024 Refill [facility] MEDICINE [address] [place] [address] Henry Bernardo MD Chronic pain syndrome 11/27/2024 9:30 AM EDT Telemedicine [facility] MEDICINE [address] [place] [address] Suni Rodriguez RN Long-term current use of opiate analgesic 11/27/2024 Telephone [facility] MEDICINE [address] [place] [address] Henry Bernardo MD paperwork 11/27/2024 Refill [facility] MEDICINE [address] [place] [address] Henry Bernardo MD Migraine without status migrainosus, not intractable, unspecified migraine type 11/27/2024 Travel 11/27/2024 Refill C [facility] [address] [place] [address] Henry Bernardo MD Migraine without status migrainosus, not intractable, unspecified migraine type 11/24/2024 Refill [facility] MEDICINE [address] [place] [phone] Henry Bernardo MD Diabetic polyneuropathy associated with type 2 diabetes mellitus ([facility]/HCC) 11/19/2024 Telephone [facility] MEDICINE [address] [place] [phone] Henry Bernardo MD 11/19/2024 Telephone [facility] MEDICINE [address] [place] [phone] Henry Bernardo MD Durable Medical Equipment 11/18/2024 10:30 AM EDT Office Visit [facility] MEDICINE [address] [place] [phone] Henry Bernardo MD Mild vascular dementia with anxiety ([facility]) (Primary Dx); Type 2 diabetes mellitus with other specified complication, with long-term current use of insulin ([facility]/HCC); Postlaminectomy syndrome, lumbar region; S/P insertion of spinal cord stimulator; Encounter for screening mammogram for malignant neoplasm of breast 11/18/2024 Travel 11/17/[address] [phone] Henry Bernardo MD CHART PREP 11/14/2024 Refill [facility] MEDICINE [address] [place] [phone] Henry Bernardo MD Chronic bronchitis, unspecified chronic bronchitis type ([facility]/HCC) 11/12/2024 Telephone [facility] MEDICINE [address] [place] [phone] Henry Bernardo MD Nurse Triage 11/04/2024 Refill [facility] WALK-IN CENTER [address] [place] [phone] Henry Bernardo MD Seasonal allergies 11/02/2024 10:30 AM EDT Office Visit [facility] ADULT DENTAL [address] [place] [phone] JonahRameshLorena luna, DDS Abfraction (Primary Dx); Dental caries; Generalized gingival recession; Tooth sensitivity to cold 10/24/2024 Refill [facility] MED & PEDS [address] [place] [address] Henry Bernardo MD 10/23/2024 Refill [facility] MEDICINE [address] [place] [address] Name, MD Henry Chronic pain syndrome from Last 3 Months Immunizations Immunization Administration Dates Next Due Hep A, Adult [...] Moderna Covid-19 Vaccine 12+ 06/16/2020,05/26/19 21 Novel [id number], preservative-free 05/20/2009 Pfizer Covid-19 Vaccine 12+ 07/29/2024,1 [...] Mass Index 34.44 01/19/2025 1:44 PM EDT Plan of Treatment Upcoming Encounters Date Type Department Care Team (Late st Contact Info) Description 02/05/2025 9:00 AM EDT Telemedicine [facility] MEDICINE [address] [place] [phone] Suni Rodriguez, EDWARD 02/12/2025 9:00 AM EDT Office Visit [facility] ADULT DENTAL [address] [place] [phone] Lorena Cazares, DDS [address] [place] [address] 04/14/2025 2:30 PM EST Office Visit [facility] MEDICINE [address] [place] [phone] Name, MD Henry [address] [place] [phone] Health Maintenance Due Date Last Done Comments CT Colonography 1959 FIT DNA/Cologuard 1959 FIT 1959 FOBT 1959 Sigmoidoscopy 1959 Pap Smear 11/27/1980 HPV/Cotest 11/27/1989 Zoster Vaccines (1 of 2) 11/27/2009 RSV Patients and Patients Aged 60 years or older (1 - Risk 60-74 years 1-dose series) 2019 Mammogram 05/31/2023 05/31/2021, 05/29/2018 Diabetes: Urine Protein Screening 10/15/2024 10/16/2023, 09/13/2022, 03/02/2020, Additional history exists Lipid Panel 10/15/2024 10/16/2023, 03/02/2020 Influenza Vaccine (#1) 2025 , 03/13/2023, 07/09/2022, Additional history exists COVID-19 Vaccine (2023- season) 2025 07/29/2024, 04/09/2023, 07/09/2022, Additional history exists Dental Oral Exam 04/04/2025 10/01/2024, , 07/11/2022, Additional history exists Dental Prophylaxis 04/04/2025 10/01/2024, 04/01/2024 Colonoscopy 04/12/2025 04/12/2020 Colorectal Cancer Screening 04/12/2025 Diabetes: Hemoglobin A1C 05/21/2025 025, 07/29/2024, 01/28/2024, Additional history exists Depression Monitoring 05/23/2025 11/20/2024, 025 Eye Exam 09/10/2025 09/11/2023, 05/0 05/2023, 09/11/2023, Additional history exists Dental X-Ray: Bitewings 10/02/2025 10/01/2024, 07/11 Alcohol/Substance Use Screening 11/18/2025 11/18/2024 SDOH Screening 11/18/2025 11/18/2024 Diabetes: Foot Exam 01/19/2026 01/19/2025, 01/19/2025, 01/19/2025, Additional history exists Tobacco Screening 01/19/2026 01/19/2025 Dental X-Ray: Full Mouth 03/11/2027 03/10/2024 DTaP/Tdap/Td Vaccines (4 - Td or Tdap) 06/24/2029 06/24/2019, 06/24/2019, 09/27/2008, Additional history exists Hepatitis A Vaccines Completed 04/23/2006, 04/23/2006, 04/24/2005, Additional history exists Hepatitis B Vaccines Completed 08/27/2018, 08/27/2018, 01/22/2013, Additional history exists Pneumococcal Vaccine: 50+ Years Completed 08/06/2023, 03/07/2008, 04/09/2005 Cervical Cancer Screening Discontinued HIB Vaccines Aged Out No longer eligi [...] complication, with long-term current use of insulin ([facility]) 6 EXTRACTION, ERUPTED TOOTH REQ REMOVAL OF BONE AND/OR SECTIONING OF TOOTH Routine 01/13/2025 9:00 AM EDT CASE PRESENTATION, DETAILED AND EXTENSIVE TREATMENT PLANNING Routine 01/13/2025 9:00 AM EDT POCT GLYCATED HEMOGLOBIN, TOTAL Routine 11/18/2024 11:28 AM EDT Type 2 diabetes mellitus with other specified complication, with long-term current use of insulin ([facility]) POCT GLUCOSE Routine 11/18/2024 11:28 AM EDT Type 2 diabetes mellitus with other specified complication, with long-term current use of insulin ([facility]) CASE PRESENTATION, DETAILED AND EXTENSIVE TREATMENT PLANNING Routine 11/02/2024 10:30 AM EDT Abfraction Dental caries Generalized gingival recession Tooth sensitivity to cold 2 MBB(V) RESIN-BASED COMPOSITE - 2 SURF, POSTERIOR Routine 11/02/2024 10:30 AM EDT Abfraction Dental caries Generalized gingival recession Tooth sensitivity to cold 22 FF(V) RESIN-BASED COMPOSITE - 1 SURF, ANTERIOR Routine 11/02/2024 10:30 AM EDT Abfraction Dental caries Generalized gingival recession Tooth sensitivity to cold 7 DFF(V)L RESIN-BASED COMPOSITE - 3 SURF, ANTERIOR Routine 11/02/2024 10:30 AM EDT Abfraction Dental caries Generalized gingival recession Tooth sensitivity to cold PROPHYLAXIS - ADULT Routine 10/01/2024 1 0:00 AM EDT Xerostomia Abfraction Missing teeth, acquired Excessive attrition of teeth, limited to enamel BITEWING - SINGLE RADIOGRAPHIC IMAGE Routine 10/01/2024 10:00 AM EDT Xerostomia Abfraction Missing teeth, acquired Excessive attrition of teeth, limited to enamel PERIODIC ORAL EVALUATION - ESTABLISHED PATIENT Routine 10/01/2024 10:00 AM EDT Xerostomia Abfraction Missing teeth, acquired Excessive attrition of teeth, limited to enamel Generalized gingival recession Encounter for dental examination PANORAMIC RADIOGRAPHIC IMAGE Routine 03/10/2024 3:30 PM [...] type (CMS/HCC) Tobacco user Chronic pain syndrome MAMMOGRAM GENERIC Routine 05/31/2021 12: 50 PM EST HM COLONOSCOPY Routine 04/12/2020 10:05 AM EST from Last 3 Months or Most Recently Relevant to Health Maintenance Results * POCT Glucose (01/19/2025 1:45 PM EDT) Only the most recent of2 resultswithin the time period is included. Glucose Blood, POC 110 60 - 200 mg/dL QC Media Lot # [id number] Lot# Expiration Date 72 Blood Capillary blood specimen / Unknown 01/19/2025 1:45 PM EDT us Henrycherelle Bernardo MD POINT OF CARE TEST ENTER/EDIT OR DERABLES Final Result * (ABNORMAL) POCT HGB A1C (11/18/2024 11:28 AM EDT) Hemoglobin A1C 6.1(A) 4.0 - 5.7 % QC Media Lot # [id number] Lot# Expiration Date Blood 11/18/2024 11:2 8 AM EDT us Henry Bernardo MD POINT OF CARE TEST ENTER/EDIT OR DERABLES Final Result * Albumin, Random Urine W/Creatinine (10/16/2023 9:50 AM EDT) Creatinine, Urine 246.69 mg/dL [facility] Microalbumin Urine 39.0 mg/L [facility] Microalbum Creatinine Ratio Ur 15.8 <30 ug/mg cr [facility] Comment:Albumin/Creatinine R atio Reference Ranges: Normal: < 30 ug/mg creatinine Microalbuminuria: 30 - 300 ug/mg creatinineClinical Albuminuria: > 300 ug/mg creatinine Urine (Urine, Random) 10/16/2023 9:50 AM EDT 10/16/2023 2:51 PM EDT us Henry Bernardo MD LAB URINE ORDERABLES Final Resul t [facility] [address] [place] [phone] * (ABNORMAL) Lipid Panel, Standard (10/16/2023 9:45 AM EDT) Triglycerides 220(H) <150 mg/dL [facility] Comment:Desirable Triglyceri de: less than 150 mg/dLBorderline High Triglyceride 150-199 mg/dLHigh Triglyceride: 200-499 mg/dLVery High Triglyceride: greater than or equal to 5OO mg/dL Cholesterol 163 <200 mg/dL [facility] Comment:Desirable Cholestero l: less than 200 mg/dLBorderline High Cholesterol: 200-239 mg/dLHigh Cholesterol: greater than 239 mg/dL LDL Cholesterol Calculated 81 <100 mg/dL [facility] Comment:Desirable LDL: less than 100 mg/dLNear Optimal/Above Optimal LDL: 110- 129 mg/dLBorderline High LDL: 130-159 mg/dLHigh LDL: 160-189 mg/dLVery High LDL: greater than or equal to 190 mg/dL HDL Cholesterol 38(L) >40 mg/dL [facility] Comment:Desirable HDL: great er than 40 mg/dL Note: This HDL assay may give artificially low results in patients with liver disease. Blood Venous blood specimen / Unknown 10/16/2023 9:45 AM EDT 10/16/2023 3:01 PM EDT us Henry Bernardo MD LAB BLOOD ORDERABLES Final Resul t [facility] [address] [place] [phone] * Mammography Report 1 (05/31/2021 12:50 [...] MD IMG BI PROCEDURES Final Result * Hm Colonoscopy (04/12/2020 10:05 AM EST) Colonoscopy Normal Normal Narrative Amina Stroud - 04/12/2020 10:05 AM EST Recommended 5 year follow up ([facility]) Historical Provider HEALTH MAINTENANCE Final Result from Last 3 Months or Most Recently Relevant to Health Maintenance [place] [address] [address] [address] [employer]AND[employer] D[facility]-[facility] MEDICAID STAND ADULT Care Teams Collection Systems Worker Relationship Specialty Start Date End Date Name, MD Henry [address] [place] [phone] PCP - General Family Medicine 08/19/15 Finn Galindo Respite CoordinatorSeat Installer 08/06/23 Mari Carrion Md Allergy ImmunologySeat Installer 12/03/23 Chiquita 01/18/24
== END 2025-01-21 10:28 | disposition home or self-care (01) ==
LOC: HO.HSM 08:55
PROVIDERS: PCP Internal Medicine Geriatric Medicine; Visit Provider Nurse Practitioner
DX: R41.3 Other amnesia (principal)
CPT/HCPCS: 99205

== ENCOUNTER → 2025-01-21 08:54 | Outpatient (BNVA) | payer MEDICAID, SELFPAY | PROVIDERS: PCP Internal Medicine Geriatric Medicine; Visit Provider Nurse Practitioner | DX: R41.3 Other amnesia (principal) | CPT/HCPCS: 99202 ==

== ENCOUNTER 2025-02-12 09:34 | Outpatient (REF) | payer MEDICARE, MEDICAID, SELFPAY ==
--- OUTSIDE RECORDS SUMMARY | 2025-02-09 10:30 | XMS_ITS | Encounter Summary ---
Author Organization [employer] Address 75 [facility] 7t [place] [address] Care Team Providers Care News Commentator Name Role Phone Name, Henry BARTLETT Primary Care Provider [phone] Reason for Visit * Reason Comments sick onsite Encounter Details Date Type Department Care Team ([facility] st Contact Info) Description 02/09/2025 10:30 AM EDT Office Visit [facility] MEDICINE [address] [place] [address] Ne Elizabeth FNP 230 [place] [address] Social History Tobacco Use Types Packs/Day Years [...] Sign Reading Time Taken Comments Blood Pressure 130/88 02/09/2025 10:28 AM EDT Pulse 82 02/09/2025 10:28 AM EDT Temperature 36.9 C (98.4 F) 02/09/2025 10:28 AM EDT Respiratory Rate 21 02/09/2025 10:2 8 AM EDT Oxygen Saturation 96% 02/09/2025 10: 28 AM EDT Inhaled Oxygen Concentration - - Weight 86.5 kg (190 lb 12.8 oz) 025 10:28 AM EDT Height 160 cm (5' 3 ) 02/09/2025 10:28 AM EDT Body Mass Index 33.8 02/09/2025 10:28 AM EDT documented in this encounter Plan of Treatment Upcoming Encounters Date Type Department Care Team (Late st Contact Info) Description 02/16/2025 10:00 AM EDT Office [facility] ADULT DENTAL [address] [place] [address] Lorena Cazares DDS [address] [place] [address] 03/08/2025 11:00 AM EDT Office [facility] ADULT DENTAL [address] [place] [address] Holger Marquez DDS 230 [place] [address] 04/14/2025 2:30 PM EST Office Visit [facility] [place] [address] Name, MD Henry [facility] [place] [address] 04/30/2025 9:30 AM EST Telemedicine [facility] [place] [address] Suni Rodriguez, EDWARD documented as of this encounter Visit Diagnoses Not on filedocumented in this encounter Additional Health Concerns Assessment Noted Time PHQ-9 Depression Total Score: 24 025 11:00 AM EDT documented as of this encounter Care Teams News Commentator Relationship Specialty Start Date End Date Name, MD Henry [facility] [place] [address] PCP - General Family Medicine 08/19/15 Finn Galindo Neurosurgical Nurse PractitionerYacht Rigger 08/06/23 Mari Carrion Senior Php Software DeveloperYacht Rigger 12/03/23 Chiquita 01/18/24 documented as of this encounter
--- OUTSIDE RECORDS SUMMARY | 2025-02-12 10:12 | XMS_ITS | Encounter Summary ---
Author Organization [employer] Address 75 [facility] 7t [place] [address] Care Team Providers Care Improvement Rn Name Role Phone Name, Henry BARTLETT Primary Care Provider [phone] Reason for Visit * Reason Onset Date Comments Medication Question 01/01/2023 pregabalin ( Lyrica) 50 MG capsule Encounter Details Date Type Department Care Team ([facility] st Contact Info) Description 01/01/2023 Telephone [facility] MEDICINE 230 [place], [place] [phone] Name, MD Henry 230 [place] [address] Medication Question (pregabalin (Lyrica) 50 MG capsule//) [...] to go back to100 mh. Patient speaks djiboutian. documented in this encounter Plan of Treatment Upcoming Encounters Date Type Department Care Team (Late st Contact Info) Description 02/16/2025 10:00 AM EDT Office Visit [facility] ADULT DENTAL [address] [place] [address] Lorena Cazares DDS 230 [place] [address] 03/08/2025 11:00 AM EDT Office Visit [facility] ADULT DENTAL [address] [place] [address] Holger Marquez DDS 230 [place] [address] 04/14/2025 2:30 PM EST Office Visit [facility] MEDICINE [address] [place] [address] Name, MD Henry [address] [place] [address] 04/30/2025 9:30 AM EST Telemedicine [facility] MEDICINE [address] [place] [address] Suni Rodriguez, EDWARD documented as of this encounter Visit Diagnoses Not on filedocumented in this encounter Additional Health Concerns Assessment Noted Time PHQ-9 Depression Total Score: 6 09/14/19 23 9:53 AM EDT documented as of this encounter Care Teams Improvement Rn Relationship Specialty Start Date End Date Name, MD Henry 230 [place] [address] PCP - General Family Medicine 08/19/15 Finn Galindo Material SchedulerDirector Mobile 08/06/23 Mari Carrion Chip Machine OperatorDirector Mobile 12/03/23 Chiquita 01/18/24 documented as of this encounter
--- OUTSIDE RECORDS SUMMARY | 2025-02-12 10:12 | XMS_ITS | Encounter Summary ---
Author Organization [employer] Address 75 [facility] 7t [place] [address] Care Team Providers Care Filling Station Attendant Name Role Phone Name, Henry BARTLETT Primary Care Provider [phone] Reason for Visit * Reason Comments Med Refill Encounter Details Date Type Department Care Team ([facility] st Contact Info) Description 04/30/2024 Refill [facility] MEDICINE 230 [place], [place] [phone] Yue Olsen, LANCE 230 [place], [place] [phone] COPD exacerbation (CMS/HCC) Social History Tobacco Use [...] Description 02/16/2025 10:00 AM EDT Office Visit [facility] ADULT DENTAL [address] [place] [address] Lorena Cazares, DDS [address] [place] [address] 03/08/2025 11:00 AM EDT Office Visit [facility] ADULT DENTAL [address] [place] [address] Holger Marquez, DDS [address] [place] [address] 04/14/2025 2:30 PM EST Office Visit [facility] MEDICINE [address] [place] [address] NameHenry MD [address] [place] [address] 04/30/2025 9:30 AM EST Telemedicine [facility] [address] [place] [address] Suni Rodriguez RN documented as of this encounter Visit Diagnoses Diagnosis COPD exacerbation (CMS/HCC) (HCC) Obstructive chronic bronchitis with exacerbation documented in this encounter Additional Health Concerns Assessment Noted Time PHQ-9 Depression Total Score: 6 09/14/19 23 9:53 AM EDT documented as of this encounter Care Teams Filling Station Attendant Relationship Specialty Start Date End Date Henry Bernardo MD [address] [place] [address] PCP - General Family Medicine 08/19/15 Finn Galindo Sports EditorBoarding Machine Operator 08/06/23 Mari Carrion Supervisor Concrete Pipe PlantBoarding Machine Operator 12/03/23 Chiquita 01/18/24 documented as of this encounter
--- OUTSIDE RECORDS SUMMARY | 2025-02-12 10:12 | XMS_ITS | Encounter Summary ---
Author Organization [employer] Address 75 [facility] 7t [place] [address] Care Team Providers Care Wheat And Oats Flake Miller Name Role Phone Name, Henry BARTLETT Primary Care Provider [phone] Reason for Visit * Reason Onset Date Comments FYI 12/02/2023 Encounter Details Date Type Department Care Team ([facility] Contact Info) Description 12/02/2023 Telephone [facility] MEDICINE 230 [place], [place] [phone] Name, MD Henry 230 [place] [address] FYI Social History Tobacco Use Types Packs/Day [...] Description 02/16/2025 10:00 AM EDT Office Visit [facility] ADULT DENTAL [address] [place] [address] Lorena Cazares [address] [address] 03/08/2025 11:00 AM EDT Office Visit [facility] ADULT DENTAL [address] [place] [address] Holger Marquez DDS [address] [place] [address] 04/14/2025 2:30 PM EST Office Visit [facility] MEDICINE [address] [place] [address] Name, MD Henry [address] [place] [address] 04/30/2025 9:30 AM EST Telemedicine [address] [address] Suni Rodriguez, RN documented as of this encounter Visit Diagnoses Not on filedocumented in this encounter Additional Health Concerns Assessment Noted Time PHQ-9 Depression Total Score: 6 09/14/19 23 9:53 AM EDT documented as of this encounter Care Teams Wheat And Oats Flake Miller Relationship Specialty Start Date End Date Name, MD Henry 230 [place] [address] PCP - General Family Medicine 08/19/15 Finn Galindo Oil Distributor TenderBlanket Maker 08/06/23 Mari Carrion Pepper CutterBlanket Maker 12/03/23 Chiquita 01/18/24 documented as of this encounter
--- OUTSIDE RECORDS SUMMARY | 2025-02-12 10:12 | XMS_ITS | Encounter Summary ---
Author Organization [employer] Address 75 [facility] 7t [place] [address] Care Team Providers Care Hand Surgeon Name Role Phone Name, Henry BARTLETT Primary Care Provider [phone] Encounter Details Date Type Department Care Team (Latest Contact Info) Description 03/20/2021 Abstract [facility] CONVERSIONS Dental, Provider, DDS Social [...] Description 02/16/2025 10:00 AM EDT Office Visit [facility] ADULT DENTAL 230 [place] [address] Lorena Cazares DDS 230 [place] [address] 03/08/2025 11:00 AM EDT Office Visit [facility] ADULT DENTAL 230 [place] [address] Holger Marquez DDS 230 [place] [address] 04/14/2025 2:30 PM EST Office Visit [facility] MEDICINE [address] [place] [address] Name, MD Henry [address] [place] [address] [place] [address] 04/30/2025 9:30 AM EST Telemedicine [facility] MEDIC[facility] [place] [address] Suni Rodriguez RN documented as of this encounter Visit Diagnoses Not on filedocumented in this encounter Care Teams Hand Surgeon Relationship Specialty Start Date End Date Name, MD Henry [facility] [place] [address] PCP - General Family Medicine 08/19/15 Finn Galindo County Records Management OfficerPaper Cone Machine Tender 08/06/23 Mari Carrion Head Girls Golf CoachPaper Cone Machine Tender 12/03/23 Chiquita 01/18/24 documented as of this encounter
--- OUTSIDE RECORDS SUMMARY | 2025-02-12 10:12 | XMS_ITS | Encounter Summary ---
Author Organization [employer] Address 75 [facility] 7t [place] [address] Care Team Providers Care Plumber Name Role Phone Name, Henry BARTLETT Primary Care Provider [phone] Reason for Visit * Reason Comments Med Refill Encounter Details Date Type Department Care Team ([facility] st Contact Info) Description 02/09/2025 Refill [facility] WALK-IN CENTER [address] [place] [phone] Name, MD Henry 230 [place] [address] Social History Tobacco Use Types Packs/Day Years [...] Description 02/16/2025 10:00 AM EDT Office Visit [facility] ADULT DENTAL [address] [place] [address] Lorena Cazares, S [address] [place] [address] 03/08/2025 11:00 AM EDT Office Visit [facility] ADULT DENTAL [address] [place] [address] Holger Marquez, [address] [address] 04/14/2025 2:30 PM EST Office Visit [facility] MEDICINE [address] [place] [address] Name, MD Henry [address] [place] [address] 04/30/2025 9:30 AM EST Telemedicine [facility] MEDICINE [address] [place] [address] Suni Rodriguez, EDWARD documented as of this encounter Visit Diagnoses Not on filedocumented in this encounter Additional Health Concerns Assessment Noted Time PHQ-9 Depression Total Score: 24 025 11:00 AM EDT documented as of this encounter Care Teams Plumber Relationship Specialty Start Date End Date Name, MD Henry [address] [place] [address] PCP - General Family Medicine 08/19/15 Finn Galindo Gas Distribution Plant OperatorFlexographic Press Operator 08/06/23 Mari Carrion Charter DriverFlexographic Press Operator 12/03/23 Chiquita 01/18/24 documented as of this encounter
--- OUTSIDE RECORDS SUMMARY | 2025-02-12 10:12 | XMS_ITS | Encounter Summary ---
Author Organization [employer] Address 75 [facility] 7t [place] [address] Care Team Providers Care E Mail System Administrator Name Role Phone Name, Henry BARTLETT Primary Care Provider [phone] Reason for Visit * Reason Onset Date Comments FYI 12/17/2023 Encounter Details Date Type Department Care Team ([facility] st Contact Info) Description 12/17/2023 Telephone [facility] MEDICINE [address] [place], [place] [phone] Name, MD Henry 230 [place] [address] FYI Social History Tobacco Use Types Packs/Day [...] pt is being seen at is the [facility] ([address] [place] [address]) Rehab documented in this encounter Plan of Treatment Upcoming Encounters Date Type Department Care Team (Late st Contact Info) Description 02/16/2025 10:00 AM EDT Office Visit [facility] ADULT DENTAL [address] [place] [address] Lorena Cazares DDS [address] [place] [address] 03/08/2025 11:00 AM EDT Office Visit [facility] ADULT DENTAL [address] [place] [address] Holger Marquez DDS [address] [place] [address] 04/14/2025 2:30 PM EST Office Visit [facility] [address] Name, MD Henry [facility] [place] [address] 04/30/2025 9:30 AM EST Telemedicine [facility] [address] Suni Rodriguez, EDWARD documented as of this encounter Visit Diagnoses Not on filedocumented in this encounter Additional Health Concerns Assessment Noted Time PHQ-9 Depression Total Score: 6 09/14/19 23 9:53 AM EDT documented as of this encounter Care Teams E Mail System Administrator Relationship Specialty Start Date End Date Name, MD Henry [facility] [place] [address] PCP - General Family Medicine 08/19/15 Finn Galindo Customer Care Team CoachBoat Tender 08/06/23 Mari Carrion Driver License ExaminerBoat Tender 12/03/23 Chiquita 01/18/24 documented as of this encounter
--- OUTSIDE RECORDS SUMMARY | 2025-02-12 10:12 | XMS_ITS | Encounter Summary ---
Author Organization [employer] Address 75 [facility] 7t [place] [address] Care Team Providers Care Software Engineer Advisor Name Role Phone Name, Henry BARTLETT Primary Care Provider [phone] Reason for Visit * Reason Comments Med Refill Encounter Details Date Type Department Care Team ([facility] st Contact Info) Description 07/09/2023 Refill [facility]S [address] [place], [place] [phone] Name, MD Henry 230 [place] [address] Chronic pain syndrome Social History Tobacco Use [...] Description 02/16/2025 10:00 AM EDT Office Visit [facility] ADULT DENTAL [address] [place] [address] Lorena Cazares DDS [address] [place] [address] 03/08/2025 11:00 AM EDT Office Visit [facility] ADULT DENTAL [address] [place] [address] Holger Marquez DD 230 [place] [address] 04/14/2025 2:30 PM EST Office Visit [facility] MEDICINE [address] [place] [address] Name, MD Henry [address] [place] [address] 04/30/2025 9:30 AM EST Telemedicine [facility] MEDICINE [address] [place] [address] Suni Rodriguez RN documented as of this encounter Visit Diagnoses Diagnosis Chronic pain syndrome documented in this encounter Additional Health Concerns Assessment Noted Time PHQ-9 Depression Total Score: 6 09/14/19 23 9:53 AM EDT documented as of this encounter Care Teams Software Engineer Advisor Relationship Specialty Start Date End Date NameHenry MD [address] [place] [address] PCP - General Family Medicine 08/19/15 Finn Galindo Wrapping Machine OperatorBody Builder Apprentice 08/06/23 Mari Carrion Administrative CoordinatorBody Builder Apprentice 12/03/23 Chiquita 01/18/24 documented as of this encounter
--- OUTSIDE RECORDS SUMMARY | 2025-02-12 10:12 | XMS_ITS | Encounter Summary ---
Author Organization [employer] Address 75 [facility] 7t [place] [address] Care Team Providers Care Clicker Operator Name Role Phone Name, Henry BARTLETT Primary Care Provider [phone] Reason for Visit * Reason Onset Date Comments Medical Question 09/18/2022 Encounter Details Date Type Department Care Team ([facility] st Contact Info) Description 09/18/2022 Telephone [facility] MEDICINE [address] [place], [place] [phone] Name, MD Henry [address] [place] [address] Medical Question Social History Tobacco Use Types [...] encounter Miscellaneous Notes * Telephone Encounter - Lalitha Taverarero - 09/18/2022 11:16 AM EDT Tc from pt requesting a call from a nurse in regards for heart monitor. Pt states that Cardiologistgave her a call and advise that pt has a weak heart and pt would like to see if possible to get a heart monitor Please contact pt at [phone] Upper Sorbian Speaker documented in this encounter Plan of Treatment Upcoming Encounters Date Type Department Care Team (Late st Contact Info) Description 02/16/2025 10:00 AM EDT Office Visit [facility] ADULT DENTAL [address] [place] [address] Lorena Cazares, DDS [address] [place] [address] 03/08/2025 11:00 AM EDT Office Visit [facility] ADULT DENTAL [address] [place] [address] Holger Marquez DD [address] [place] [address] 04/14/2025 2:30 PM EST Office Visit [facility] MEDICINE [address] [place] [address] Name, MD Henry [address] [place] [address] 04/30/2025 9:30 AM EST Telemedicine [facility] MEDICINE [address] [place] [address] Suni Rodriguez, RN documented as of this encounter Visit Diagnoses Not on filedocumented in this encounter Additional Health Concerns Assessment Noted Time PHQ-9 Depression Total Score: 6 09/14/19 23 9:53 AM EDT documented as of this encounter Care Teams Clicker Operator Relationship Specialty Start Date End Date Name, MD Henry [address] [place] [address] PCP - General Family Medicine 08/19/15 Finn Galindo Printed Circuit Boards Plasma EtcherSawmill Equipment Operator 08/06/23 Mari Carrion Cap SewerSawmill Equipment Operator 12/03/23 Chiquita 01/18/24 documented as of this encounter
--- OUTSIDE RECORDS SUMMARY | 2025-02-12 10:12 | XMS_ITS | Encounter Summary ---
Author Organization [employer] Address 75 [facility] 7t [place] [address] Care Team Providers Care Medical Assistant Secretary Name Role Phone Name, Henry BARTLETT Primary Care Provider [phone] Reason for Visit * Reason Onset Date Comments Results 10/22/2023 Encounter Details Date Type Department Care Team ([facility] st Contact Info) Description 10/22/2023 Telephone [facility] MEDICINE 230 [place], [place] [phone] Name, MD Henry 230 [place], [place] [phone] Results Social History Tobacco Use Types Packs/Day [...] and Urine Date when done: 10/15 Facility: [facility] documented in this encounter Plan of Treatment Upcoming Encounters Date Type Department Care Team (Late st Contact Info) Description 02/16/2025 10:00 AM EDT Office Visit [facility] ADULT DENTAL [address] [place] [address] Lorena Cazares DDS [address] [place] [address] 03/08/2025 11:00 AM EDT Office Visit [facility] ADULT DENTAL [address] [place] [address] Holger Marquez DDS 230 [place] [address] 04/14/2025 2:30 PM EST Office Visit [facility] MEDICINE [address] [place] [address] Name, MD Henry [address] [place] [address] 04/30/2025 9:30 AM EST Telemedicine [facility] MEDICINE [address] [place] [address] Jennifer, Suni, RN documented as of this encounter Visit Diagnoses Not on filedocumented in this encounter Additional Health Concerns Assessment Noted Time PHQ-9 Depression Total Score: 6 09/14/19 23 9:53 AM EDT documented as of this encounter Care Teams Medical Assistant Secretary Relationship Specialty Start Date End Date Name, MD Henry 230 [place] [address] PCP - General Family Medicine 08/19/15 Finn Galindo Paving ContractorDie Cast Technician 08/06/23 Mari Carrion Blood CoordinatorDie Cast Technician 12/03/23 Chiquita 01/18/24 documented as of this encounter
--- OUTSIDE RECORDS SUMMARY | 2025-02-12 10:12 | XMS_ITS ---
Author Organization [employer] Address 75 [facility] 7t [place] [address] Care Team Providers Care Race Engine Builder Name Role Phone Name, Henry BARTLETT Primary Care Provider [phone] MIG TIG WELDER Status:Enrolled (Active) Start date:06/14/2022 Enrollment date:06/14/2022 Enrollment reason:Identified using pharmacy data Current support & services provided:Tier 4 (MIG TIG WELDER) Case Team Name Relationship Phone Suni Rodriguez RN(Responsible Staff) Registered Nu rse Continued Care and Services Coordination
--- OUTSIDE RECORDS SUMMARY | 2025-02-12 10:12 | XMS_ITS | Encounter Summary ---
Author Organization [employer] Address 75 [facility] 7t [place] [address] Care Team Providers Care Deputy Director Of Finance Name Role Phone Name, Henry BARTLETT Primary Care Provider Reason for Visit * Reason Comments Med Refill Encounter Details Date Type Department Care Team (Late Contact Info) Description 11/19/2022 Refill [facility] MEDICINE [address] [place], [place] [phone] Name, MD Henry 230 [place] [address] Chronic pain syndrome Social History Tobacco Use [...] Upcoming Encounters Date Type Department Care Team ([facility] Contact Info) Description 02/16/2025 10:00 AM EDT Office Visit [facility] ADULT DENTAL [address] [place] [address] Lorena Cazares, DDS [address] [place] [address] 03/08/2025 11:00 AM EDT Office Visit [facility] ADULT DENTAL [address] [place] [address] Jimmy Holger, DDS [address] [place] [address] 04/14/2025 2:30 PM EST Office Visit [facility] MEDICINE [address] [place] [address] Name, [place] [address] 04/30/2025 9:30 AM EST Telemedicine [facility] MEDICINE [address] [place] [address] Suni Rodriguez RN documented as of this encounter Visit Diagnoses Diagnosis Chronic pain syndrome documented in this encounter Additional Health Concerns Assessment Noted Time PHQ-9 Depression Total Score: 6 09/14/19 23 9:53 AM EDT documented as of this encounter Care Teams Deputy Director Of Finance Relationship Specialty Start Date End Date Name, MD Henry [facility] [place] [address] PCP - General Family Medicine 08/19/15 Finn Galindo Hat Body SorterManager Baby 08/06/23 Mari Carrion Architectural DesignerManager Baby 12/03/23 Chiquita 01/18/24 documented as of this encounter
--- OUTSIDE RECORDS SUMMARY | 2025-02-12 10:12 | XMS_ITS | Encounter Summary ---
Author Organization [employer] Address 75 [facility] 7t [place] [address] Care Team Providers Care Sheep Sticker Name Role Phone Name, Henry BARTLETT Primary Care Provider [phone] Reason for Visit * Reason Comments Med Refill Encounter Details Date Type Department Care Team ([facility] st Contact Info) Description 11/25/2023 Refill [facility] [address] [place], [place] [phone] Name, MD Henry 230 [place], [place] [phone] Iron deficiency anemia, unspecified iron deficiency anemia [...] 02/16/2025 10:00 AM EDT Office Visit [facility] ADULT DENTAL [address] [place] [address] Lorena Cazares DDS [address] [place] [address] 03/08/2025 11:00 AM EDT Office Visit [facility] ADULT DENTAL [address] [place] [address] Holger Marquez DDS [address] [place] [address] 04/14/2025 2:30 PM EST Office Visit [facility] MEDICINE [address] [place] [address] Name, MD Henry [address] [place] [address] 04/30/2025 9:30 AM EST Telemedicine [facility] MEDICINE [address] [place] [address] Suni Rodriguez RN documented as of this encounter Visit Diagnoses Diagnosis Iron deficiency anemia, unspecified iron deficiency anemia type documented in this encounter Additional Health Concerns Assessment Noted Time PHQ-9 Depression Total Score: 6 09/14/19 23 9:53 AM EDT documented as of this encounter Care Teams Sheep Sticker Relationship Specialty Start Date End Date Name, MD Henry [address] [place] [address] PCP - General Family Medicine 08/19/15 Finn Galindo Flame Hardening Machine OperatorDirector Physical Therapy 08/06/23 Mari Carrion Spectral ScientistDirector Physical Therapy 12/03/23 Chiquita 01/18/24 documented as of this encounter
--- OUTSIDE RECORDS SUMMARY | 2025-02-12 10:12 | XMS_ITS | Encounter Summary ---
Author Organization [employer] Address 75 [facility] 7t [place] [address] Care Team Providers Care Yard Specialist Name Role Phone Name, Henry BARTLETT Primary Care Provider [phone] Encounter Details Date Type Department Care Team (Late Contact Info) Description 10/23/2022 Abstract [facility] MEDICINE 230 [place] [address] Name, MD Henry [address] [place] [address] Social History Tobacco Use Types Packs/Day Years [...] Description 02/16/2025 10:00 AM EDT Office Visit [facility] ADULT DENTAL 230 [place], [place] [phone] Lorena Cazares DDS 230 [place] [address] 03/08/2025 11:00 AM EDT Office Visit [facility] ADULT DENTAL 230 [place], [place] [phone] Holger Marquez, TRINITYS [address] [place] [phone] 04/14/2025 2:30 PM EST Office Visit [facility] MEDICINE Kishan [place] [phone] Name, [place] [address] 04/30/2025 9:30 AM EST Telemedicine [facility] MEDICINE K[place] [phone] Suni Rodriguez RN documented as of this encounter Procedures Procedure Name Priority Date/Time Associated Diagnosis Comments COLONOSCOPY Routine 04/12/2020 10:05 AM EST documented in this encounter Results * Colonoscopy (04/12/2020 10:05 AM EST) Colonoscopy Normal Normal Narrative Amina Stroud - 04/12/2020 10:05 AM EST Recommended 5 year follow up ([place]) us Historical Provider HEALTH MAINTENANCE Final Result documented in this encounter Visit Diagnoses Not on filedocumented in this encounter Additional Health Concerns Assessment Noted Time PHQ-9 Depression Total Score: 6 09/14/19 23 9:53 AM EDT documented as of this encounter Care Teams Yard Specialist Relationship Specialty Start Date End Date Name, MD Henry Kishan [place] [phone] PCP - General Family Medicine 08/19/15 Finn Galindo Deck MateWhey Department Operator 08/06/23 Mari Carrion Research MechanicWhey Department Operator 12/03/23 Chiquita 01/18/24 documented as of this encounter
--- OUTSIDE RECORDS SUMMARY | 2025-02-12 10:12 | XMS_ITS | Encounter Summary ---
Author Organization [employer] Address 75 [facility] 7t [place] [address] Care Team Providers Care Saw Maker Name Role Phone Name, Henry BARTLETT Primary Care Provider [phone] Reason for Visit * Reason Comments Med Refill Encounter Details Date Type Department Care Team ([facility] st Contact Info) Description 08/05/2023 Refill [facility] MED & PEDS [address] [place], [place] [phone] Name, MD Henry 230 [place] [address] Chronic pain syndrome Social History Tobacco Use [...] Description 02/16/2025 10:00 AM EDT Office Visit [facility] ADULT DENTAL [address] [place] [address] Lorena Cazares DDS [address] [place] [address] 03/08/2025 11:00 AM EDT Office Visit [facility] ADULT DENTAL [address] [place] [address] Holger Marquez DD 230 [place] [address] 04/14/2025 2:30 PM EST Office Visit [facility] MEDICINE [address] [place] [address] Name, MD Henry [address] [place] [address] 04/30/2025 9:30 AM EST Telemedicine [facility] MEDICINE [address] [place] [address] Suni Rodriguez RN documented as of this encounter Visit Diagnoses Diagnosis Chronic pain syndrome documented in this encounter Additional Health Concerns Assessment Noted Time PHQ-9 Depression Total Score: 6 09/14/19 23 9:53 AM EDT documented as of this encounter Care Teams Saw Maker Relationship Specialty Start Date End Date NameHenry MD [address] [place] [address] PCP - General Family Medicine 08/19/15 Finn Galindo Char Filter Tank Tender HeadBranch Mechanic 08/06/23 Mari Carrion Automatic Beading Lathe OperatorBranch Mechanic 12/03/23 Chiquita 01/18/24 documented as of this encounter
--- OUTSIDE RECORDS SUMMARY | 2025-02-12 10:12 | XMS_ITS | Encounter Summary ---
Author Organization [employer] Address 75 [facility] 7t [place] [address] Care Team Providers Care Mainframe Consultant Name Role Phone Name, Henry BARTLETT Primary Care Provider [phone] Reason for Visit * Reason Comments Med Refill Encounter Details Date Type Department Care Team (Late st Contact Info) Description 09/17/2022 Refill [facility] MEDICINE 230 [place] [address] Name, MD Henry 230 [place] [address] Social History Tobacco Use Types Packs/Day Years [...] Description 02/16/2025 10:00 AM EDT Office Visit [facility] ADULT DENTAL [address] [place] [address] Lorena Cazares, DDS [facility] [place] [address] 03/08/2025 11:00 AM EDT Office Visit [facility] ADULT DENTAL [address] [place] [address] JimmyHolger, DDS [address] [place] [address] 04/14/2025 2:30 PM EST Office Visit [facility] MEDICINE [address] [place], [place] [address]bam [place] [address] Name, MD Henry [place] [address] 04/30/2025 9:30 AM EST Telemedicine [facility] MEDICINE [address] [place] [address] Suni Rodriguez, EDWARD documented as of this encounter Visit Diagnoses Not on filedocumented in this encounter Additional Health Concerns Assessment Noted Time PHQ-9 Depression Total Score: 6 09/14/19 23 9:53 AM EDT documented as of this encounter Care Teams Mainframe Consultant Relationship Specialty Start Date End Date NameHenry MD K[facility] [place] [address] PCP - General Family Medicine 08/19/15 Finn Galindo Steam Fitter SupervisorQuilter Fixer 08/06/23 Mari Carrion Woven Label DesignerQuilter Fixer 12/03/23 Chiquita 01/18/24 documented as of this encounter
--- OUTSIDE RECORDS SUMMARY | 2025-02-12 10:12 | XMS_ITS | Encounter Summary ---
Author Organization [employer] Address 75 [facility] 7t [place] [address] Care Team Providers Care Therapy Tech Name Role Phone Name, Henry BARTLETT Primary Care Provider [phone] Reason for Visit * Reason Comments Med Refill Encounter Details Date Type Department Care Team ([facility] st Contact Info) Description 07/09/2024 Refill [facility] MEDICINE 230 [place], [place] [phone] Name, MD Henry 230 [place], [place] [phone] Chronic pain syndrome Social History Tobacco Use [...] Description 02/16/2025 10:00 AM EDT Office Visit [facility] ADULT DENTAL [address] [place] [address] Lorena Cazares DDS [address] [place] [address] 03/08/2025 11:00 AM EDT Office Visit [facility] ADULT DENTAL [address] [place] [address] Holger Marquez DDS 230 [place] [address] 04/14/2025 2:30 PM EST Office Visit [facility] MEDICINE [address] [place] [address] Name, MD Henry [address] [place] [address] 04/30/2025 9:30 AM EST Telemedicine [facility] MEDICINE [address] [place] [address] Suni Rodriguez RN documented as of this encounter Visit Diagnoses Diagnosis Chronic pain syndrome documented in this encounter Additional Health Concerns Assessment Noted Time PHQ-9 Depression Total Score: 6 09/14/19 23 9:53 AM EDT documented as of this encounter Care Teams Therapy Tech Relationship Specialty Start Date End Date Henry Bernardo MD [address] [place] [address] PCP - General Family Medicine 08/19/15 Finn Galindo Paper Cone Machine TenderRefresh Technician 08/06/23 Mari Carrion [employer] SupervisorRefresh Technician 12/03/23 Chiquita 01/18/24 documented as of this encounter
--- OUTSIDE RECORDS SUMMARY | 2025-02-12 10:12 | XMS_ITS | Encounter Summary ---
Author Organization [employer] Address 75 [facility] 7t [place] [address] Care Team Providers Care Maintenance Painter Name Role Phone Name, Henry BARTLETT Primary Care Provider [phone] Reason for Visit * Reason Comments Med Refill Encounter Details Date Type Department Care Team (Late Contact Info) Description 09/15/2022 Refill [facility] MEDICINE 230 [place], [place] [phone] Name, MD Henry 230 [place] [address] Chronic pain syndrome Social History Tobacco Use [...] Upcoming Encounters Date Type Department Care Team ([facility] Contact Info) Description 02/16/2025 10:00 AM EDT Office Visit [facility] ADULT DENTAL 230 [place] [address] Lorena Cazares, DDS 230 [place] [address] 03/08/2025 11:00 AM EDT Office Visit [facility] ADULT DENTAL 230 [place] [address] NickHolger hicks, DDS 230 [place] [address] 04/14/2025 2:30 PM EST Office Visit [facility] MEDICINE [address] [place] [address] Name, [place] [address] 04/30/2025 9:30 AM EST Telemedicine [address] [address] Suni Rodriguez, EDWARD documented as of this encounter Visit Diagnoses Diagnosis Chronic pain syndrome documented in this encounter Additional Health Concerns Assessment Noted Time PHQ-9 Depression Total Score: 6 09/14/19 23 9:53 AM EDT documented as of this encounter Care Teams Maintenance Painter Relationship Specialty Start Date End Date NameHenry MD Kishan [place] [address] PCP - General Family Medicine 08/19/15 Finn Galindo Hand Suture WinderRail Bender 08/06/23 Mari Carrion Rifle Case RepairerRail Bender 12/03/23 Chiquita 01/18/24 documented as of this encounter
--- OUTSIDE RECORDS SUMMARY | 2025-02-12 10:12 | XMS_ITS | Encounter Summary ---
Author Organization [employer] Address 75 [facility] 7t [place] [address] Care Team Providers Care Director Life Name Role Phone Name, Henry BARTLETT Primary Care Provider [phone] Encounter Details Date Type Department Care Team (Late Contact Info) Description 05/09/2022 [facility] Only [facility] 230 [place] [address] Darlyn Pagan, EDWARD 230 [place], [place] [phone] Social History Tobacco Use Types Packs/Day Years [...] Department Care Team (Late Contact Info) Description 02/16/2025 10:00 AM EDT Office Visit [facility] ADULT DENTAL 230 [place], [place] [phone] Lorena Cazares DDS 230 [place], [place] [phone] 03/08/2025 11:00 AM EDT Office Visit [facility] ADULT DENTAL 230 [place] [address] Holger Marquez DDS 230 [place] [address] 04/14/2025 2:30 PM EST Office Visit [facility] MEDICINE [address] [place] [address] Name, MD Henry 230 [place] [address] 04/30/2025 9:30 AM EST Telemedicine [address] [address] Suni Rodriguez RN documented as of this encounter Visit Diagnoses Not on filedocumented in this encounter Care Teams Director Life Relationship Specialty Start Date End Date Name, MD Henry [address] [place] [address] PCP - General Family Medicine 08/19/15 Finn Galindo Drier AttendantBreakdown Person 08/06/23 Mari Carrion Test DeveloperBreakdown Person 12/03/23 Chiquita 01/18/24 documented as of this encounter
--- OUTSIDE RECORDS SUMMARY | 2025-02-12 10:12 | XMS_ITS | Encounter Summary ---
Author Organization [email or web address] Address 75 [facility] 7t [place] [address] Care Team Providers Care Family Protection Specialist Name Role Phone Name, Henry BARTLETT Primary Care Provider [phone] Encounter Details Date Type Department Care Team (Late st Contact Info) Description 11/01/2022 Orders Only [facility] MEDICINE 230 [place] [address] Haley Gardner LPN Social History Tobacco Use [...] Description 02/16/2025 10:00 AM EDT Office Visit [facility] ADULT DENTAL 230 [place] [address] Lorena Cazares DDS 230 [place] [address] 03/08/2025 11:00 AM EDT Office Visit [facility] ADULT DENTAL 230 [place] [address] Holger Marquez DDS 230 [place] [address] 04/14/2025 2:30 PM EST Office Visit [facility] [place] [address] Name, MD Henry Kishan [facility] [place] [address] 04/30/2025 9:30 AM EST Telemedicine [facility]an [facility] [place] [address] Suni Rodriguez, EDWARD documented as of this encounter Visit Diagnoses Not on filedocumented in this encounter Additional Health Concerns Assessment Noted Time PHQ-9 Depression Total Score: 6 09/14/19 23 9:53 AM EDT documented as of this encounter Care Teams Family Protection Specialist Relationship Specialty Start Date End Date Name, MD Henry [facility] [place] [address] PCP - General Family Medicine 08/19/15 Finn Galindo Technology Methodology ConsultantLead Blender 08/06/23 Mari Carrion Ham DoctorLead Blender 12/03/23 Chiquita 01/18/24 documented as of this encounter
--- OUTSIDE RECORDS SUMMARY | 2025-02-12 10:12 | XMS_ITS | Encounter Summary ---
Author Organization [employer] Address 75 [facility] 7t [place] [address] Care Team Providers Care Patient Access Manager Name Role Phone Name, Henry BARTLETT Primary Care Provider [phone] Reason for Visit * Reason Comments Med Refill Encounter Details Date Type Department Care Team (Late st Contact Info) Description 12/31/2022 Refill [facility] MEDICINE 230 [place], [place] [phone] Name, MD Henry 230 [place] [address] Social History Tobacco Use Types Packs/Day Years [...] 02/16/2025 10:00 AM EDT Office Visit [facility] ADULT DENTAL 230 [place], [place] [phone] Lorena Cazares DDS 230 [place], [place] [phone] 03/08/2025 11:00 AM EDT Office Visit [facility] ADULT DENTAL [address] [place] [address] Holger Mraquez DDS 230 [place] [address] 04/14/2025 2:30 PM EST Office Visit [facility] MEDICINE [address] [place] [address] Name, MD Henry 230 [place] [address] 04/30/2025 9:30 AM EST Telemedicine [address] [address] Suni Rodriguez, RN documented as of this encounter Visit Diagnoses Not on filedocumented in this encounter Additional Health Concerns Assessment Noted Time PHQ-9 Depression Total Score: 6 09/14/19 23 9:53 AM EDT documented as of this encounter Care Teams Patient Access Manager Relationship Specialty Start Date End Date Name, MD Henry [address] [place] [address] PCP - General Family Medicine 08/19/15 Finn Galindo Bottle FillerHospital Librarian 08/06/23 Mari Carrion Microarray AnalystHospital Librarian 12/03/23 Chiquita 01/18/24 documented as of this encounter
--- OUTSIDE RECORDS SUMMARY | 2025-02-12 10:12 | XMS_ITS | Encounter Summary ---
Author Organization [employer] Address 75 [facility] 7t [place] [address] Care Team Providers Care Char Belt Operator Name Role Phone Name, Henry BARTLETT Primary Care Provider [phone] Reason for Visit * Reason Comments Med Refill Encounter Details Date Type Department Care Team ([facility] Contact Info) Description 02/08/2023 Refill [facility] CHC MED & PEDS [address] [place], [place] [phone] Name, MD Henry 230 [place] [address] Chronic pain syndrome Social History Tobacco Use [...] Upcoming Encounters Date Type Department Care Team ([facility] Contact Info) Description 02/16/2025 10:00 AM EDT Office Visit [facility] ADULT DENTAL 230 [place], [place] [phone] Lorena Cazares DDS 230 [place] [address] 03/08/2025 11:00 AM EDT Office Visit [facility] ADULT DENTAL 230 [facility] [place] [address] Holger Marquez DDS 230 [place] [address] 04/14/2025 2:30 PM EST Office Visit [facility] MEDICINE [address] [place], [place] [address] [place] [address] Name, MD Henry [facility] [place] 04/30/2025 9:30 AM EST Telemedicine [address] [place] [address] Suni Rodriguez, RN documented as of this encounter Visit Diagnoses Diagnosis Chronic pain syndrome documented in this encounter Additional Health Concerns Assessment Noted Time PHQ-9 Depression Total Score: 6 09/14/19 23 9:53 AM EDT documented as of this encounter Care Teams Char Belt Operator Relationship Specialty Start Date End Date Name, MD Henry [facility]an [facility] [place] [address] PCP - General Family Medicine 08/19/15 Finn Galindo Machine SorterExpanded Function Dental Assistant 08/06/23 Mari Carrion Internet Marketing CoordinatorExpanded Function Dental Assistant 12/03/23 Chiquita 01/18/24 documented as of this encounter
--- OUTSIDE RECORDS SUMMARY | 2025-02-12 10:12 | XMS_ITS | Encounter Summary ---
Author Organization [employer] Address 75 [facility] 7t [place] [address] Care Team Providers Care Internet Marketing Coordinator Name Role Phone Name, Henry BARTLETT Primary Care Provider [phone] Reason for Visit * Reason Comments Med Refill Encounter Details Date Type Department Care Team (Late st Contact Info) Description 01/25/2023 Refill [facility] MEDICINE 230 [place], [place] [phone] Name, MD Henry 230 [place] [address] Diabetic polyneuropathy associated with type 2 diabetes [...] Description 02/16/2025 10:00 AM EDT Office Visit [facility] ADULT DENTAL 230 [place], [place] [phone] Lorena Cazares DDS 230 [place] [address] 03/08/2025 11:00 AM EDT Office Visit [facility] ADULT DENTAL 230 [place] [address] Holger Marquez, JESENIA 230 [place] [address] 04/14/2025 2:30 PM EST Office Visit [facility] MEDICINE [address] [place] [address] Name, [place] [address] 04/30/2025 9:30 AM EST Telemedicine [address] [address] Suni Rodriguez RN documented as of this encounter Visit Diagnoses Diagnosis Diabetic polyneuropathy associated with type 2 diabetes mellitus (HCC) documented in this encounter Additional Health Concerns Assessment Noted Time PHQ-9 Depression Total Score: 6 09/14/19 23 9:53 AM EDT documented as of this encounter Care Teams Internet Marketing Coordinator Relationship Specialty Start Date End Date Name, MD Henry [address] [place] [address] PCP - General Family Medicine 08/19/15 Finn Galindo Field Representative/Health EducationTyper 08/06/23 Mari Carrion Latex Foam WorkerTyper 12/03/23 Chiquita 01/18/24 documented as of this encounter
--- OUTSIDE RECORDS SUMMARY | 2025-02-12 10:12 | XMS_ITS | Encounter Summary ---
Author Organization [employer] Address 75 [facility] 7t [place] [address] Care Team Providers Care Staple Processing Machine Operator Name Role Phone Name, Henry BARTLETT Primary Care Provider [phone] Reason for Visit * Reason Onset Date Comments Prior Authorization 09/18/2023 Encounter Details Date Type Department Care Team ([facility] st Contact Info) Description 09/18/2023 Telephone [facility] MEDICINE 230 [place], [place] [phone] Name, MD Henry 230 [place] [address] Prior Authorization Social History Tobacco Use Types [...] 100 MG capsule unsure if medication needed PA.Helper/Driver spoke with pharmacy in which they stated medication needs a PA renewal. documented in this encounter Plan of Treatment Upcoming Encounters Date Type Department Care Team (Late st Contact Info) Description 02/16/2025 10:00 AM EDT Office Visit [facility] ADULT DENTAL 230 [place] [address] Lorena Cazares, DDS 230 [place] [address] 03/08/2025 11:00 AM EDT Office Visit [facility] ADULT DENTAL 230 [place] [address] Holger Marquez, DDS 230 [place] [address] 04/14/2025 2:30 PM EST Office Visit [facility] MEDICINE [address] [place] [address] Name, [place] [address] 04/30/2025 9:30 AM EST Telemedicine [facility] [place] [address] Suni Rodriguez, RN documented as of this encounter Visit Diagnoses Not on filedocumented in this encounter Additional Health Concerns Assessment Noted Time PHQ-9 Depression Total Score: 6 09/14/19 23 9:53 AM EDT documented as of this encounter Care Teams Staple Processing Machine Operator Relationship Specialty Start Date End Date Name, [place] [address] PCP - General Family Medicine 08/19/15 Finn Galindo Vocational PsychologistService Officer 08/06/23 Mari Carrion Fish Processing SupervisorService Officer 12/03/23 Chiquita 01/18/24 documented as of this encounter
--- OUTSIDE RECORDS SUMMARY | 2025-02-12 10:12 | XMS_ITS | Encounter Summary ---
Author Organization [employer] Address [address] [facility] [address] [place] [address] Care Team Providers Care Ironing Worker Name Role Phone Name, Henry BARTLETT Primary Care Provider [phone] Encounter Details Date Type Department Care Team (Latest Contact Info) Description 02/09/2025 Travel Social History Tobacco Use Types Packs/Day [...] 02/16/2025 10:00 AM EDT Office Visit [facility] ADULT DENTAL [address] [place] [phone] Lorena Cazares DDS [address] [place] [phone] 03/08/2025 11:00 AM EDT Office Visit [facility] ADULT DENTAL [address] [place] [phone] Holger Marquez [address] [address] 04/14/2025 2:30 PM EST Office Visit [facility] MEDICINE [address] [place] [phone] Name, MD Henry [address] [place] [phone] 04/30/2025 9:[address] [facility] [address] [place] [phone] Suni Rodriguez, EDWARD documented as of this encounter Visit Diagnoses Not on filedocumented in this encounter Additional Health Concerns Assessment Noted Time PHQ-9 Depression Total Score: 24 025 11:00 AM EDT documented as of this encounter Care Teams Ironing Worker Relationship Specialty Start Date End Date Name, MD Henry [address] [place] [phone] PCP - General Family Medicine 08/19/15 Finn Galindo Manufacturing TechnicianHand Fretted Instrument Maker 08/06/23 Mari Cariron Industrial SpecialistHand Fretted Instrument Maker 12/03/23 Chiquita 01/18/24 documented as of this encounter
--- OUTSIDE RECORDS SUMMARY | 2025-02-12 10:12 | XMS_ITS | Clinical Summary ---
Author Organization [employer] Address [address] [facility] [address] [place] [address] Care Team Providers Care Deli Associate Name Role Phone Name, Henry BARTLETT Primary Care Provider [phone] Allergies Active Allergy Reactions Criticality Noted Date Comments Celecoxib 05/23/2022 Other reaction(s): GI UPSET Ibuprofen Unknown 10/21/2015 Other reaction(s): gi upset Iodinated Contrast Media 05/23/2022 Other reaction(s): anaphylactic shock Iodine Unknown 10/21/2015 Pineapple Itching 12/04/2022 Medications * This document contains information received from the source organization and may not represent a complete record from that organization. Umeclidinium [place] (Incruse Ellipta) 62.5 MCG/ACT aerosol powder Inhale [...] complication, with long-term current use of insulin ([facility]) Inject 30 Units under the skin Once daily. 10 mL 11 Active Fluticasone Furoate-Vilantero l (Breo Ellipta) 100-25 [...] syringe-needle U-100 (UltiCare Insulin Syringe) 31G X 09/25 1 mL misc Use as instructed 100 each 5 025 Active FREESTYLE LITE test stripIndications: Type 2 diabetes mellitus with other specified complication, with long-term current use of insulin ([facility]) TEST BLOOD SUGAR THREE TIMES DAILY 50 strip 025 Active atorvastatin (Lipitor) 20 MG tabletIndications :Hypercholesterol emia TAKE 1 TABLET BY MOUTH EVERY MORNING 90 tablet 1 025 Active metFORMIN (Glucophage) 500 MG tabletIndications :Type 2 diabetes mellitus with other specified complication, with long-term current use of insulin ([facility]) TAKE 1 TABLET BY MOUTH TWICE DAILY IN THE MORNING AND IN THE EVENING WITH FOOD 180 tablet 3 Active TRUEplus Lancets 33G miscIndications:D iabetic polyneuropathy associated with type 2 diabetes mellitus ([facility]) TEST BLOOD SUGAR THREE TIMES DAILYTEST BLOOD SUGAR THREE TIMES DAILY 100 each 025 Active ferrous gluconate (Fergon) 324 (38 [...] EVERY MORNING 90 tablet 1 025 Active Azelastine HCl 137 MCG/SPRAY solutionIndicatio ns:Chronic bronchitis, unspecified chronic bronchitis type (CMS/HCC) ([facility]) INHALE 1 SPRAY IN EACH NOSTRIL TWICE [...] MORNING AND AT BEDTIME 60 tablet 11 025 Active Diclofenac Sodium 1 % gelIndications:Ch ronic low back pain, unspecified back pain laterality, unspecified whether sciatica present APPLY 2 GRAM TOPICALLY TO AFFECTED AREA(S) TWICE DAILY 100 g 025 Active citalopram (CeleXA) 10 MG tablet TAKE 1 TABLET BY MOUTH EVERY DAY 30 tablet 1 025 Active fluticasone (Flonase) 50 MCG/ACT nasal sprayIndications: Chronic bronchitis, unspecified chronic bronchitis type (CMS/HCC) ([facility]) USE 2 SPRAYS IN EACH NOSTRIL ONCE DAILY DIRECTED 48 g 025 Active albuterol (2.5 MG/3ML) 0.083% nebulizer solution INHALE 1 AMPULE USING A NEBULIZER EVERY 6 HOURS NEEDED FOR WHEEZING OR SHORTNESS OF BREATH 360 mL 3 025 Active Alcohol Swabs (Alcohol Prep) 70 % padsIndications:D iabetic polyneuropathy associated with type 2 diabetes mellitus ([facility]) TEST BLOOD SUGAR THREE TIMES DAILY 100 each 11 025 Active amoxicillin (Amoxil) 500 MG capsule Take 4 capsules of amoxicillin 500 mg 1 hour prior dental procedure 12 capsule 025 Active famotidine (Pepcid) 20 MG tabletIndications :Heartburn TAKE 1 TABLET BY MOUTH AT BEDTIME 90 tablet 3 025 Active losartan (Cozaar) 50 MG tabletIndications :Hypertension, unspecified type Take 1 tablet (50 mg) by mouth Once per day. 90 tablet 3 09/01/12 Active donepezil (Aricept) 10 MG tablet Take 1 tablet (10 mg) by mouth at bedtime. 30 tablet 2025 Active Continuous Glucose Band Sawing Machine Operator (FreeStyle [place] 3 [place]) device 1 each Once per day. Use [...] failure or extremes of BG 100 each 2025 Active Aspirin Low Dose 81 MG chewable tablet CHEW 1 TABLET BY MOUTH EVERY DAY IN THE MORNING 90 tablet Active riboflavin (vitamin B2) 100 mg tablet tabletIndications :Hypercholesterol emia TAKE 4 TABLETS BY MOUTH EVERY DAY IN THE MORNING 360 tablet Active pregabalin (Lyrica) 100 MG capsuleIndication s:Diabetic polyneuropathy associated with type 2 diabetes mellitus (HCC) TAKE 1 CAPSULE BY MOUTH THREE TIMES DAILY IN THE MORNING, EVENING, AND BEDTIME 90 capsule Active oxyCODONE-acetami nophen (Percocet) 7.5-325 MG tabletIndications :Chronic pain syndrome Take 1 tablet by mouth every 8 (eight) hours if needed for severe pain for up to 28 days. Do not start before February 03, 2025. 84 tablet 2024 Active sucralfate (Carafate) 1 GM/10ML suspension TAKE 10 ML BY MOUTH EVERY TWELVE HOURS ON AN EMPTY STOMACH 1 HOUR BEFORE MEALS AND AT BEDTIME 473 mL Active tamsulosin (Flomax) 0.4 MG 24 hr capsule TAKE 1 CAPSULE BY MOUTH EVERY EVENING 90 capsule Active amoxicillin (Amoxil) 500 MG capsule Take 1 capsule (500 mg) by mouth 2 times daily for 7 days. 14 capsule 2024 Active sodium chloride (Centre Nasal [place]) 0.65 % nasal spray Administer 1 spray into each nostril if needed for congestion. 30 mL 12 025 2025 Active sucralfate (Carafate) 1 GM/10ML suspension Take 10 mL (1 g) by mouth every 12 (twelve) hours. Daily on empty stomach 1 hour before meals and at bedtime 473 mL 11 024 2024 Discontinued losartan (Cozaar) 50 MG tabletIndications :Hypertension, unspecified type Take 1 tablet (50 mg) by mouth Once per day. 90 tablet 3 024 2024 Discontinued(R eorder (will not trigger notification to Pharmacy)) famotidine (Pepcid) 20 MG tabletIndications :Heartburn TAKE 1 TABLET BY MOUTH AT BEDTIME 90 tablet 3 024 2024 Discontinued riboflavin (vitamin B2) 100 mg tablet tabletIndications :Hypercholesterol emia TAKE 4 TABLETS BY MOUTH EVERY MORNING 360 tablet 1 025 2024 Discontinued Aspirin Low Dose 81 MG chewable tablet TAKE 1 TABLET BY MOUTH EVERY MORNING (CHEW) 90 tablet 1 025 2024 Discontinued tamsulosin (Flomax) 0.4 MG 24 hr capsule TAKE 1 CAPSULE BY MOUTH EVERY EVENING 90 capsule 1 025 2024 Discontinued(R eorder (will not trigger notification to Pharmacy)) pregabalin (Lyrica) 100 MG capsuleIndication s:Diabetic polyneuropathy associated with type 2 diabetes mellitus (HCC) TAKE 1 CAPSULE BY MOUTH THREE TIMES DAILY IN THE MORNING, EVENING, AND BEDTIME 90 capsule 025 2024 Discontinued oxyCODONE-acetami nophen (Percocet) 7.5-325 MG tabletIndications :Chronic pain syndrome TAKE 1 TABLET BY MOUTH EVERY 8 HOURS NEEDED FOR SEVERE PAIN FOR UP TO 28 DAYS 84 tablet 025 2024 Discontinued donepezil (Aricept) 5 MG tabletIndications :Mild vascular dementia with anxiety (CMS/HCC) ([facility]) TAKE 1 TABLET BY MOUTH EVERY DAY AT BEDTIME 30 tablet 1 025 2024 Discontinued(D ose adjustment) Active Problems Problem Noted Date Diagnosed Date Mild vascular dementia with anxiety (CMS/HCC) Dental root caries 01/13/2025 PARAM (generalized anxiety disorder) 11/23/2024 Excessive attrition of teeth, limited to enamel 10/01/2024 Abfraction 10/01/2024 Tooth abrasion 10/01/2024 Stage 3a chronic kidney disease (CMS/HCC) 2024 Abdominal hernia without obstruction and without gangrene 07/29/2024 Dental plaque 04/01/2024 Generalized gingival recession 04/01/2024 Missing teeth, acquired 04/01/2024 Xerostomia 04/01/2024 Hair loss 02/10/2024 Assessment & Plan (02/10/2024 8:20 PM EDT): Suspect stress induced hair loss, however will check labs COPD exacerbation (CMS/HCC) 02/10/2024 Assessment & Plan (02/10/2024 8:20 PM [...] 11/29/2022 Pain of foot 11/29/2022 Chronic bronchitis (CMS/HCC) 03/29/2022 Chronic sinusitis 03/29/2022 MDD (major depressive disord er), recurrent severe, without psychosis (CMS/HCC) 03/29/2022 Epigastric pain 03/29/2022 Seasonal allergic reaction [...] 09/20/2015 Hyperlipidemia 09/20/2015 Migraine 09/20/2015 Morbid obesity ([facility]) 09/20/2015 Resolved Problems Problem Noted Date Diagnosed Date Resolved Date Itching 01/02/2024 03/02/2024 Delirium 11/13/2023 03/02/2024 Diabetes mellitus 09/20/2015 01/02/2023 Encounters * This document contains information received from the source organization and may not represent a complete record from that organization. Date Type Department Care Team Description 02/09/2025 10:30 AM EDT Office Visit [facility] MEDICINE [address] [place] [phone] Ne Elizabeth FNP 02/09/2025 Travel 02/09/2025 Refill [facility] [address] [place] [address] Henry Bernardo MD 02/08/2025 Telephone [facility] [address] [place] [address] Henry Bernardo MD Nurse Triage 02/05/2025 9:00 AM EDT Telemedicine [facility] [address] [place] [phone] Suni Rodriguez, RN Long-term current use of opiate analgesic 02/05/2025 Telephone [facility] [address] [place] [address] Suni Rodriguez, RN BPI Scoring 02/05/2025 Travel 02/01/2025 Refill [facility] [address] [place] [address] Henry Bernardo MD Chronic pain syndrome 01/27/2025 Refill [facility] [address] [place] [address] Henry Bernrado MD Diabetic polyneuropathy associated with type 2 diabetes mellitus ([facility]/HCC) 01/26/2025 Refill [facility] [address] [place] [address] Henry Bernardo MD Hypercholesterolemia 01/21/2025 Telephone [facility] [address] [place] [address] Henry Bernardo MD PA CGM 01/21/2025 Telephone [facility] [address] [place] [address] Henry Bernardo MD Durable Medical Equipment (Diabetic shoes) 01/19/2025 1:45 PM EDT Office Visit [facility] [address] [place] [address] Henry Bernardo MD Type 2 diabetes mellitus with other specified complication, with long-term current use of insulin ([facility]) (Primary Dx); Ingrown toenail; Mild vascular dementia with anxiety ([facility]); Hypertension, unspecified type 01/19/2025 Travel 01/18/2025 Refill [facility] PEDS [address] [place] [address] Henry Bernardo MD Heartburn 01/15/2025 Telephone [facility] [address] [place] [address] Henry Bernardo MD CHARTPREP 01/13/2025 9:00 AM EDT Office Visit [facility] ADULT DENTAL [address] [place] [address] Holger Marquez DDS Dental root caries (Primary Dx) 01/09/2025 Refill [facility] [address] [place] [address] Henry Bernardo MD Mild vascular dementia with anxiety ([facility]/HCC) 01/08/2025 Refill [facility] [address] [place] [address] Henry Bernardo MD Diabetic polyneuropathy associated with type 2 diabetes mellitus ([facility]/HCC) 01/07/2025 Telephone [facility] [address] [place] [address] Henry Bernardo MD 01/06/2025 Travel 01/06/2025 Refill [facility] [address] [place] [address] Henry Bernardo MD 01/01/2025 Refill [facility] [address] [place] [phone] Yue Olsen NP Chronic pain syndrome 12/31/2024 Refill [facility] [address] [place] [address] Henry Bernardo MD Diabetic polyneuropathy associated with type 2 diabetes mellitus ([facility]); Chronic bronchitis, unspecified chronic bronchitis type ([facility]/HCC) 12/28/2024 Refill [facility] [address] [place] [phone] Henry Bernardo MD 12/08/2024 Telephone [facility] [address] [place] [address] Henry Bernardo MD Med Refill 12/08/2024 Refill [facility] MED & PEDS [address] [place], [place] [phone] Yue Olsen NP Chronic low back pain, unspecified back pain laterality, unspecified whether sciatica present 12/03/2024 Refill [facility] [address] [place] [address] Henry Bernardo MD Chronic pain syndrome 11/27/2024 9:30 AM EDT Telemedicine [facility] [address] [place] [address] Suni Rodriguez RN Long-term current use of opiate analgesic 11/27/2024 Telephone [facility] [address] [place] [address] Henry Bernardo MD paperwork 11/27/2024 Refill [facility] [address] [place] [address] Henry Bernardo MD Migraine without status migrainosus, not intractable, unspecified migraine type 11/27/2024 Travel 11/27/2024 Refill [facility] MED [facility] PEDS [address] [place] [address] Henry Bernardo MD Migraine without status migrainosus, not intractable, unspecified migraine type 11/24/2024 Refill [facility] [address] [place] [address] Henry Bernardo MD Diabetic polyneuropathy associated with type 2 diabetes mellitus ([facility]/HCC) 11/19/[address] [address] Henry Bernardo MD 11/19/[address] [address] Henry Bernardo MD Durable Medical Equipment 11/18/2024 10:30 AM EDT Office Visit [address] [address] Henry Bernardo MD Mild vascular dementia with anxiety ([facility]) (Primary Dx); Type 2 diabetes mellitus with other specified complication, with long-term current use of insulin ([facility]); Postlaminectomy syndrome, lumbar region; S/P insertion of spinal cord stimulator; Encounter for screening mammogram for malignant neoplasm of breast 11/18/2024 Travel 11/17/[address] [address] Henry Bernardo MD CHART PREP 11/14/[address] [address] Henry Bernardo MD Chronic bronchitis, unspecified chronic bronchitis type ([facility]) 11/12/[address] [address] Henry Bernardo MD Nurse Triage from Last 3 Months Immunizations Immunization Administration [...] Moderna Covid-19 Vaccine 12+ 06/16/2020,05/26/19 21 Novel [id number], preservative-free 05/20/2009 Pfizer Covid-19 Vaccine 12+ 07/29/2024,1 [...] Mass Index 33.8 02/09/2025 10:28 AM EDT Plan of Treatment Upcoming Encounters Date Type Department Care Team (Late st Contact Info) Description 02/16/2025 10:00 AM EDT Office Visit [facility] ADULT DENTAL [address] [place] [address] Lorena Cazares DDS [address] [place] [address] 03/08/2025 11:00 AM EDT Office Visit [facility]ULT DENT[facility] [address] [place] [address] Holger Marquez DDS [address] [place] [address] 04/14/2025 2:30 PM EST Office Visit [facility] MED[facility]INE [address] [place] [address] [phone] Name, MD Henry [address] [place], [place] [phone] 04/30/2025 9:30 AM EST Telemedicine [facility] [address] [place] [address] [phone] Suni Rodriguez, RN Health Maintenance Due Date [...] 03/13/2023, 07/09/2022, Additional history exists COVID-19 Vaccine ( season) 2025 07/29/2024, 04/09/2023, 07/09/2022, Additional history exists Dental Oral Exam 04/04/2025 10/01/2024, , 07/11/2022, Additional history exists Dental Prophylaxis 04/04/2025 10/01/2024, 04/01/2024 Colonoscopy 04/12/2025 04/12/2020 Colorectal Cancer Screening 04/12/2025 Diabetes: Hemoglobin A1C 05/21/2025 025, 07/29/2024, 01/28/2024, Additional history exists Depression Monitoring 05/23/2025 11/20/2024, 025 Eye Exam 09/10/2025 09/11/2023, 0505/2023, 09/11/2023, Additional history exists Dental X-Ray: Bitewings [...] complication, with long-term current use of insulin ([facility]) 6 EXTRACTION, ERUPTED TOOTH REQ REMOVAL OF BONE AND/OR SECTIONING OF TOOTH Routine 01/13/2025 9:00 AM EDT CASE PRESENTATION, DETAILED AND EXTENSIVE TREATMENT PLANNING Routine 01/13/2025 9:00 AM EDT POCT GLYCATED HEMOGLOBIN, TOTAL Routine 11/18/2024 11:28 AM EDT Type 2 diabetes mellitus with other specified complication, with long-term current use of insulin ([facility]) POCT GLUCOSE Routine 11/18/2024 11:28 AM EDT Type 2 diabetes mellitus with other specified complication, with long-term current use of insulin ([facility]) PROPHYLAXIS - ADULT Routine 10/01/2024 1 0:00 [...] / Unknown 01/19/2025 1:45 PM EDT us Henry Bernardo MD POINT [...] 9:50 AM EDT) Creatinine, Urine 246.69 mg/dL [facility] Microalbumin Urine 39.0 mg/L [facility] Microalbum Creatinine Ratio Ur 15.8 <30 ug/mg cr [facility] Comment:Albumin/Creatinine R atio Reference Ranges: Normal: < 30 ug/mg creatinine Microalbuminuria: 30 - 300 ug/mg creatinineClinical Albuminuria: > 300 ug/mg creatinine Urine (Urine, Random) 10/16/2023 9:50 AM EDT 10/16/2023 2:51 PM EDT us Henry Bernardo MD LAB URINE ORDERABLES Final Resul t Performing Organization Address [facility] Co de Phone Number [facility] [address] [place] [phone] * (ABNORMAL) Lipid Panel, Standard (10/16/2023 9:45 AM EDT) Triglycerides 220(H) <150 mg/dL [facility] Comment:Desirable Triglyceri de: less than 150 mg/dLBorderline High Triglyceride 150-199 mg/dLHigh Triglyceride: 200-499 mg/dLVery High Triglyceride: greater than or equal to 5OO mg/dL Cholesterol 163 <200 mg/dL [facility] Comment:Desirable Cholestero l: less than 200 mg/dLBorderline High Cholesterol: 200-239 mg/dLHigh Cholesterol: greater than 239 mg/dL LDL Cholesterol Calculated 81 <100 mg/dL [facility] Comment:Desirable LDL: less than 100 mg/dLNear Optimal/Above Optimal LDL: 110- 129 mg/dLBorderline High LDL: 130-159 mg/dLHigh LDL: 160-189 mg/dLVery High LDL: greater than or equal to 190 mg/dL HDL Cholesterol 38(L) >40 mg/dL [facility] Comment:Desirable HDL: great er than 40 mg/dL Note: This HDL assay may give artificially low results in patients with liver disease. Blood Venous blood specimen / Unknown 10/16/2023 9:45 AM EDT 10/16/2023 3:01 PM EDT us Henry Bernardo MD LAB BLOOD ORDERABLES Final Resul t Performing Organization Address City/[facility]/ZIP Co de Phone Number [facility] [address] [place] [phone] * Mammography Report 1 (05/31/2021 12:50 PM EST) Anatomical Region Laterality Modality Breast Bilateral Mammography 05/31/2021 12:5 0 PM EST Narrative 06/01/2021 11:03 AM EST Refer to the Notes tab for result details [facility] Procedure: Mammography Report 1 Procedure Note Provider, MD Eric - 08/05/2022 Refer to the Notes tab for result details [facility] Procedure: Mammography Report 1 us Henry Name MD DIOP BI PROCEDURES Final Result * Colonoscopy (04/12/2020 10:05 AM EST) Colonoscopy Normal Normal Narrative Amina Stroud - 04/12/2020 10:05 AM EST Recommended 5 year follow up ([facility]) Historical Provider HEALTH MAINTENANCE Final Result from Last 3 Months or Most Recently Relevant to Health Maintenance Insurance STANDARD [facility]ICARE [facility] [address] ADULT [address] [place] [address] [address] [place] [address] Care Teams Deli Associate Relationship Specialty Start Date End Date Name, MD Henry [address] [place] [phone] PCP - General Family Medicine 08/19/15 Finn Galindo Soyfreeze OperatorCyber Systems Engineer 08/06/23 Mari Carrion Travel WriterCyber Systems Engineer 12/03/23 Chiquita 01/18/24
--- OUTSIDE RECORDS SUMMARY | 2025-02-12 10:12 | XMS_ITS | Clinical Summary ---
Author Organization [address] [place] [address] [place] [phone] Phone Care Team Providers Care Size Stamper Name Role Phone Name, Henry BARTLETT Primary Care Provider [phone] Immunizations Immunization Administration Dates Next Due Pfizer SARS-CoV-2 COVID-19, mRNA, LNP-S, preservative free 02/28/2021,06/16/2020,05/26/2020 Surgical History Surgery Date Site/Laterality Comments KNEE ARTHROSCOPY PROCEDURE: IN ARTHROSCOPY AID TX SPINE&/FX KNEE W/O FIXJ HYSTERECTOMY PROCEDURE: HISTORICAL HYSTERECTOMY HERNIA REPAIR PROCEDURE: HISTORICAL HERNIA REPAIR/ING CHOLECYSTECTOMY PROCEDURE: HISTORICAL CHOLECYSTECTOMY ESOPHAGOGASTRODUODENOSCOPY 2002? PROCEDURE: IN ESOPHAGOGASTRODUODENOSCOPY TRANSORAL DIAGNOSTIC; COMMENT: h pylori gatritis? COLONOSCOPY 2004 PROCEDURE: IN COLONOSCOPY FLX DX W/COLLJ SPEC WHEN PFRMD; COMMENT: normal? (done for evaluation of rectal bleeding) ESOPHAGOGASTRODUODENOSCOPY 09/20/2009 PROCEDURE: IN EGD TRANSORAL BIOPSY SINGLE/MULTIPLE; COMMENT: Esophagus normal, bilious fluid in the stomach, antral gastritis-biopsy:mild reactive gastropathy (HPylori-), normal SB TOTAL KNEE ARTHROPLASTY PROCEDURE: HISTORICAL TOTAL KNEE REPLACE; COMMENT: both knees (2010 and 2009) SINUS SURGERY 2010 PROCEDURE: IN UNLISTED PROCEDURE ACCESSORY SINUSES; COMMENT: date approximate; [...] on file Obstetrics History Plan of Treatment Upcoming Encounters Date Type Department Care Team ([facility] Contact Info) Description 04/06/2025 10:15 AM EST Consult Orthopedic Surgery - [place] [address] [phone] Tony Vigil, DPM [address] [phone] Health Maintenance Due Date Last Done Comments Colorectal Cancer Screening: Colonoscopy 1959 Diabetes: Annual GFR (Glomerular Filtration Rate) 1959 Diabetes: Annual Foot Exam 11/27/1969 Diabetes: Annual Retina Eye Exam 11/27/1969 Cervical Cancer Screening: Pap Smear 11/27/1980 Zoster Vaccines (1 of 2) 11/27/2009 RSV Immunization Adult Patients (1 - Risk 60-74 years 1-dose series) 2019 Hepatitis C Screening 04/15/2022 Osteoporosis Screening (Bone [...] Documents on File Type Date Recorded Patient Coreroom Foundry Laborer Expl anation Health Care Decision (hx) 12/04/2023 AD DONOVAN DIRECTIVE Health Care Decision (hx) 11/11/2023 AD DONOVAN DIRECTIVE Health Care Decision (hx) 11/11/2023 AD DONOVAN DIRECTIVE Health Care Decision (hx) 11/11/2023 AD DONOVAN DIRECTIVE Care Teams Size Stamper Relationship Specialty Start Date End Date Name, MD Henry [address] [place] [address] PCP - General Internal Medicine 12/05/15
--- OUTSIDE RECORDS SUMMARY | 2025-02-12 10:12 | XMS_ITS | Encounter Summary ---
Author Organization [employer] Address [address] [facility] 7t [place] [address] Care Team Providers Care Director Correctional Agency Name Role Phone Name, Henry BARTLETT Primary Care Provider [phone] Reason for Visit * Reason Comments Med Refill Encounter Details Date Type Department Care Team ([facility] st Contact Info) Description 08/05/2024 Refill [facility] CHC MED & PEDS [address] [place], [place] [phone] Name, MD Henry [address] [place] [address] Chronic pain syndrome Social History Tobacco Use [...] Description 02/16/2025 10:00 AM EDT Office Visit [facility] ADULT DENTAL [address] [place] [address] Lorena Cazares DDS [address] [place] [address] 03/08/2025 11:00 AM EDT Office Visit [facility] ADULT DENTAL [address] [place] [address] Holger Marquez DD [address] [place] [address] 04/14/2025 2:30 PM EST Office Visit [facility] MEDICINE [address] [place] [address] Name, MD Henry [address] [place] [phone] 04/30/2025 9:30 AM EST Telemedicine [facility] MEDICINE [address] [place] [address] Suni Rodriguez RN documented as of this encounter Visit Diagnoses Diagnosis Chronic pain syndrome documented in this encounter Additional Health Concerns Assessment Noted Time PHQ-9 Depression Total Score: 6 09/14/19 23 9:53 AM EDT documented as of this encounter Care Teams Director Correctional Agency Relationship Specialty Start Date End Date NameHenry MD [address] [place] [phone] PCP - General Family Medicine 08/19/15 Finn Galindo Furnace BrazerMine Environmental Engineer 08/06/23 Mari Carrion Caseworker Protective ServicesMine Environmental Engineer 12/03/23 Chiquita 01/18/24 documented as of this encounter
--- OUTSIDE RECORDS SUMMARY | 2025-02-12 10:12 | XMS_ITS | Encounter Summary ---
Author Organization [employer] Address [address] [facility] 7t [place] [address] Care Team Providers Care Sequins Winder Name Role Phone Name, Henry BARTLETT Primary Care Provider [phone] Reason for Visit * Reason Onset Date Comments Nurse Triage 02/08/2025 Encounter Details Date Type Department Care Team ([facility] st Contact Info) Description 02/08/[address] [facility] MEDICINE [address] [place], [place] [phone] Name, MD Henry [address] [place] [address] Nurse Triage Social History Tobacco Use Types Packs/Day Years [...] encounter Miscellaneous Notes * Telephone Encounter - Flor Carias RN - 02/08/2025 10:37 AM EDT Called pt. JERRI larson. Pt. Has been having acid reflux and some stomach discomfort. Pt. Is not under distress and has no chest pain. Pt. Has history. Of acid reflux and takes Pepcid with no relief. VNAnurse requesting for me to call Génesis BAUMANN [phone], to set up an appointment for pt. To be seen. Called Génesis BAUMANN. Arranged for an appointment. For tomorrow at 1030am on palmer team for pt. To be assessed. * Telephone Encounter - Dewayne Eduardo - 02/08/2025 10:30 AM EDT Symptoms: Abdominal Pain - Female - Not , Heartburn - Caller Reports Outcome: Schedule an appointment to be seen within 24 hours Reason: Caller denied all higher acuity questions The caller accepted this outcome. Contact pt nurse Tracey at [phone] documented in this encounter Plan of Treatment Upcoming Encounters Date Type Department Care Team (Late st Contact Info) Description 02/16/2025 10:00 AM EDT Office Visit [facility] ADULT DENTAL 230 [place] [address] Lorena Cazares, DDS [address] [place] [address] 03/08/2025 11:00 AM EDT Office Visit [facility] ADULT DENTAL 230 [place] [address] Holger Marquez, DDS [address] [place] [address] 04/14/2025 2:30 PM EST Office Visit [facility] MEDICINE [address] [place] [address] Name, MD eHnry [address] [place] [address] 04/30/2025 9:30 AM EST Telemedicine [address] [place] [address] Suni Rodriguez, RN documented as of this encounter Visit Diagnoses Not on filedocumented in this encounter Additional Health Concerns Assessment Noted Time PHQ-9 Depression Total Score: 24 025 11:00 AM EDT documented as of this encounter Care Teams Sequins Winder Relationship Specialty Start Date End Date NameHenry MD [address] [place] [address] PCP - General Family Medicine 08/19/15 Finn Galindo Cath Lab Radiology TechnicianEarth Moving Technician 08/06/23 Mari Carrion Director Digital SalesEarth Moving Technician 12/03/23 Chiquita 01/18/24 documented as of this encounter
[2025-02-12 12:04] LABS: Anion Gap 11 (12-20); Blood Urea Nitrogen 34 mg/dL (9-16); Calcium 9.3 mg/dL (8.4-10.2); Carbon Dioxide 25 mmol/L (22-29); Chloride 111 mmol/L (96-108); Cholesterol 150 mg/dL (<200); Estimated Glomerular Filt Rate 40; HDL Cholesterol 40 mg/dL (>40); Potassium 5.0 mmol/L (3.3-5.1); Sodium 142 mmol/L (135-145); Triglycerides 149 mg/dL (<150)
[2025-02-12 12:21] LABS: Microalbum/Creatinine Ratio Ur 10.2 ug/mg cr (<30)
== END 2025-02-12 09:35 | disposition home or self-care (01) ==
LOC: HO.HHCL 09:34
PROVIDERS: PCP Internal Medicine Geriatric Medicine; Visit Provider Internal Medicine Geriatric Medicine
DX: I10 Essential (primary) hypertension (principal); E11.69 Type 2 diabetes mellitus with other specified complication; Z79.4 Long term (current) use of insulin
CPT/HCPCS: 36415; 80048; 80061; 82043; 82570

== ENCOUNTER 2025-04-12 10:57 | Outpatient (AMB) | payer MEDICARE, MEDICAID, SELFPAY ==
--- NOTE | 2025-04-12 11:04 | MHC.OFFVIS ---
Vital Signs 04/12/25 11:10 Height 5 ft 3 in Weight 185 lb BMI 32.8 BP 112/60 Blood Pressure Location Lt brachial Position Sitting Respiration 16 Pulse 75 Pulse Source Pulse Oximeter Pulse Oximetry (%) 97 Oxygen Delivery Method Room Air Intake Visit Reasons: after PET SCAN Accompanied by: Spouse Allergies iodine Allergy (Severe, Verified 04/12/25 11:12) THROAT CLOSES ibuprofen Adverse Reaction (Intermediate, Verified 04/12/25 11:12) UPSET STOMACH Medication List - Last Reconciled 04/12/25 by Génesis Lance CNP acetaminophen (Tylenol) 650 mg PO Q4H PRN albuterol sulfate 90 mcg/actuation (Ventolin HFA) 2 puffs inhalation Q6H PRN amoxicillin-pot clavulanate 875-125 mg 1 tab PO BID aspirin 81 mg PO DAILY atorvastatin 20 mg PO BEDTIME bisacodyl 10 mg CO DAILY PRN cetirizine 10 mg PO DAILY docusate sodium 100 mg PO BID famotidine 20 mg PO BEDTIME ferrous gluconate 324 mg PO DAILY fluticasone furoate-vilanterol 200-25 mcg/dose (Breo Ellipta) 1 ea inhalation DAILY fluticasone propionate 50 mcg/actuation (Flonase Allergy Relief) 2 sprays intranasal DAILY insulin lispro 1 sliding scale dose subcut TIDAC losartan 50 mg PO DAILY magnesium hydroxide (Milk of Magnesia) 30 mL PO DAILY PRN metformin 500 mg PO DAILY naloxone 4 mg/actuation (Narcan) 4 mg intranasal Q3M PRN oxycodone 5 mg PO Q4H PRN pantoprazole 40 mg PO QAM pregabalin 100 mg PO TID riboflavin (vitamin B2) 400 mg PO DAILY riboflavin (vitamin B2) 100 mg PO DAILY Saccharomyces boulardii 10,000 mmu cells PO BID sennosides-docusate sodium 8.6-50 mg (Senna with Docusate Sodium) 2 tab-caps PO BEDTIME sodium phosphates 19-7 gram/118 mL (Fleet Enema) 118 mL CO DAILY PRN sumatriptan succinate 100 mg PO DAILY PRN tamsulosin 0.4 mg PO BEDTIME tizanidine 4 mg PO Q8H PRN topiramate 50 mg PO BID umeclidinium 62.5 mcg/actuation (Incruse Ellipta) 1 inh inhalation DAILY HPI Comments Details: Louisa is a 64-year-old female patient with a past medical history of asthma, SHANNAN on CPAP, hyperlipidemia, type 2 diabetes, and hepatitis-C who is here today for a folow-up visit. At the time of her initial visit 01/21/2025, we discussed some memory changes she has been experiencing including forgetfulness, getting lost in conversations, or losing her belongings around the home. Her memory had slowly begun to decline over 3-4 years. She had concerns regarding numerous medical conditions and being on numerous medications and it was difficult to keep up with her health management with her memory decline. A workup has been initiated by primary care including a TSH level, RPR, and B12 level performed in August of 2024 all of which were normal. A CT scan of the head revealed evidence of microvascular leukomalacia and age-related atrophy. A mini cognitive test performed in the office was abnormal. It was suspected that based on medical history and CT scan, that she has possible vascular dementia. (She has a nerve stimulator in her back and cannot have an MRI) Her [place] score at time of last visit was 14/30 (moderate cognitive impairment). We decided to proceed with a PET scan provided that she was not able to perform an MRI of the brain due to a nerve stimulator device in her back. She had her PET scan on 04/01/2025 which did show support of a diagnosis of Alzheimer's disease. She is here today in follow-up accompanied by her , since the time of our last visit, she has not had any major changes to her cognition but she does believe that her primary care provider started her on a new medication for her memory. She can not recall the name of this. [facility] Medical History (Updated 04/12/25 @ 12:48 by Génesis Lance CNP) Personal history of nicotine dependence Toxic metabolic encephalopathy Hallucinations, visual Paranoid ideation Delirium Cellulitis of left leg SHANNAN (obstructive sleep apnea) Diabetes Hepatitis GERD (gastroesophageal reflux disease) Neuropathy Fibromyalgia Depression Sleep apnea Asthma Elevated cholesterol HTN (hypertension) Surgical History History of esophagogastroduodenoscopy (EGD) H/O colonoscopy S/P insertion of spinal cord stimulator Hx of excision of mass Hx of hernia repair Social History Household Members: None Housing: Skilled Nursing Do you presently have visiting nurse or other home services: No (currently at [facility]) Alcohol intake: current Alcohol intake frequency: does not drink Alcohol type: wine 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 Patient Tobacco Use Status: Tobacco use Unknown Cigarette Packs Per Day: 1 Cigarettes Per Day: 24 Years Smoked: 48 Substance Use Type: Marijuana Advance Directives Date on File: 12/23/23 service: No Review of Systems Const All systems reviewed & are unremarkable except as noted in HPI and below Physical Exam Const General: cooperative, healthy appearing, comfortable and no acute distress Nutritional Appearance: well nourished Limitations: no limitations HEENT Head: Yes normal to inspection and Yes normocephalic Eyes General: appearance normal, both eyes and all related structures Visual Bay: normal visual bay by confrontation Alignment and Position: alignment normal Periorbital: periorbital findings normal Eyelids: Yes eyelids normal Conjunctivae: conjunctivae normal Sclerae: sclerae normal Direct Ophthalmoscopy: normal light reflex Neuro General: tone normal Cranial nerves: Yes CN's II-XII intact bilaterally and Yes Facial sensation intact/muscles of mastication intact Cognition (Neuro): normal cognition Gait exam (Neuro): Antalgic gait present Motor exam (neuro): 5/5 motor strength present throughout, Pronator motor function not present, Tremors during motor activity present (Mild BUE action tremor) and normal tone Sensory Exam: double simultaneous stimulation for sensation normal Deep tendon reflexes (DTR's): Right triceps reflex intensity grade: 2+, Left triceps reflex intensity grade: 2+, Rt Biceps (C5, C6): 2+, Left biceps reflex intensity grade: 2+, Right brachioradialis reflex intensity grade: 2+, Left brachioradialis reflex intensity grade: 2+, Right patellar reflex intensity grade: 0, Left patellar reflex intensity grade: 0, Right ankle reflex intensity grade: 0 and Left ankle reflex intensity grade: 0 Coordination: [id number] test normal Psych Appearance: grossly normal Mental Status: mental status grossly normal Speech and movement: Normal speech and movement present and Clear speech present Affect: Anxious affect present Attitude: cooperative Thought process: Normal thought process present Thought content: Normal thought content present Insight: Good insight present (Psych) Judgement: Good judgement present (Psych) Assessment & Plan Assessment & Plan (1) Alzheimer dementia: Code(s): G30.9 - Alzheimer's disease, unspecified; F02.80 - Dementia in other diseases classified elsewhere, unspecified severity, without behavioral disturbance, psychotic disturbance, mood disturbance, and anxiety Category: Medical Plan Louisa is a 64-year-old female patient with a past medical history of asthma, SHANNAN on CPAP, hyperlipidemia, type 2 diabetes, and hepatitis-C who is here today for a folow-up visit. Her PET scan does support diagnosis of Alzheimer's dementia but her [place] score is at the moderate level making her a poor candidate for some of the more novel Alzheimer's medications. We did however discuss today supporting her memory, moods, and functional abilities. She is not already taking something for her memory as she believes, I will start her on donepezil 5 mg daily. We can optimize the dose at next visit if she tolerates. In terms of mood, I think we can consider sertraline for moods which can be discussed at next visit. We should also discuss coming off of her topiramate because this can cause cognitive slowing. We can also review this at next visit. We discussed in depth today some other lifestyle modifications that can help to support memory including remaining active and social. -start donepezil 5 mg daily -consider sertraline for moods if needed (we will discuss this more in-depth at next visit) -consider coming off of the topiramate/review need for this medication as it can cause cognitive slowing -remain active and social and engaged in brain stimulating activities -follow up in 1 month or sooner if needed Coding Level of Care Code Est Pt Level 4 (11594) Diagnoses Alzheimer dementia G30.9; F02.80
[2025-04-12 11:10] VITALS: BP 112/60; PULSE 75; RESP 16; O2SAT 97; BMI 32.8
--- OUTSIDE RECORDS SUMMARY | 2025-04-12 14:18 | XMS_ITS | Encounter Summary ---
Author Organization [employer] Address [address] [facility] 7t [place] [address] Care Team Providers Care Fiberglass Autobody Repairer Name Role Phone Name, Henry BARTLETT Primary Care Provider [phone] Encounter Details Date Type Department Care Team ([facility] Contact Info) Description 05/09/2022 [facility] Health Information Management [address] [place], [place] [phone] Darlyn Pagan RN Social History Tobacco Use Types Packs/Day Years [...] Department Care Team (Late Contact Info) Description 04/14/2025 2:30 PM EST Office Visit [facility] MEDICINE [address] [place] [address] [phone] Name, MD Henry [address] [place] [address] 04/30/2025 9:30 AM EST Telemedicine [facility] [address] [place] [address] [phone] Suni Rodriguez, EDWARD 06/08/2025 9:30 AM EST Office Visit [facility] ADULT DENTAL [address] [place] [address] Clarisse Bar [address] [place], [place] [phone] documented as of this encounter Visit Diagnoses Not on filedocumented in this encounter Care Teams Fiberglass Autobody Repairer Relationship Specialty Start Date End Date Name, MD Henry [address] [place] [address] PCP - General Family Medicine 08/19/15 Finn Galindo Waffle Machine OperatorTowel Cabinet Repairer 08/06/23 Mari Carrion Dive SupervisorTowel Cabinet Repairer 12/03/23 Chiquita 01/18/24 documented as of this encounter
--- OUTSIDE RECORDS SUMMARY | 2025-04-12 14:18 | XMS_ITS | Encounter Summary ---
Author Organization [employer] Address [address] [facility] 7t [place] [address] Care Team Providers Care Netezza Developer Name Role Phone Name, Henry BARTLETT Primary Care Provider [phone] Reason for Visit * Reason Comments Med Refill Encounter Details Date Type Department Care Team ([facility] st Contact Info) Description 07/09/2023 Refill [facility] CHC MED & PEDS [address] [place], [place] [phone] Name, MD Henry [address] [place] [address] Chronic pain syndrome Social History Tobacco Use [...] Care Team (Late st Contact Info) Description 04/14/2025 2:30 PM EST Office Visit [facility] MEDICINE [address] [place] [phone] Henry Bernardo MD [address] [place] [address] 04/30/2025 9:30 AM EST Telemedicine [facility] MEDICINE [address] [place] [address] Suni Rodriguez, EDWARD 06/08/2025 9:30 AM EST Office Visit [facility] ADULT DENTAL [address] [place] [address] Clarisse Bar [address] [place] [address] documented as of this encounter Visit Diagnoses Diagnosis Chronic pain syndrome documented in this encounter Additional Health Concerns Assessment Noted Time PHQ-9 Depression Total Score: 6 09/14/19 23 9:53 AM EDT documented as of this encounter Care Teams Netezza Developer Relationship Specialty Start Date End Date Henry Bernardo MD [address] [place] [address] PCP - General Family Medicine 08/19/15 Finn Galindo Passenger Interline ClerkFinancial Aid Coordinator 08/06/23 Mari Carrion Client Success ManagerFinancial Aid Coordinator 12/03/23 Chiquita 01/18/24 documented as of this encounter
--- OUTSIDE RECORDS SUMMARY | 2025-04-12 14:18 | XMS_ITS | Encounter Summary ---
Author Organization [employer] Address 75 [facility] 7t [place] [address] Care Team Providers Care Sewing Machine Maintenance Mechanic Name Role Phone Name, Henry BARTLETT Primary Care Provider [phone] Encounter Details Date Type Department Care Team (Latest Contact Info) Description 03/20/2021 Abstract [facility] CONVERSIONS Dental, Provider, DDS Social History [...] Description 04/14/2025 2:30 PM EST Office Visit [facility] MEDICINE [address] [place] [address] Name, MD Henry [address] [place] [address] 04/30/2025 9:30 AM EST Telemedicine [facility] MEDICINE [address] [place] [address] Suni Rodriguez RN 06/08/2025 9:30 AM EST Office Visit [facility] ADULT DENTAL [address] [place] [address] Clarisse Bar [address] [place] [address] documented as of this encounter Visit Diagnoses Not on filedocumented in this encounter Care Teams Sewing Machine Maintenance Mechanic Relationship Specialty Start Date End Date Name, MD Henry [address] [place] [address] PCP - General Family Medicine 08/19/15 Finn Galindo Service Parts DriverMarriage Therapist 08/06/23 Mari Carrion Cheese Production SupervisorMarriage Therapist 12/03/23 Chiquita 01/18/24 documented as of this encounter
--- OUTSIDE RECORDS SUMMARY | 2025-04-12 14:19 | XMS_ITS | Encounter Summary ---
Author Organization [employer] Address [address] [facility] 7t [place] [address] Care Team Providers Care Desk Clerk Name Role Phone Name, Henry BARTLETT Primary Care Provider [phone] Reason for Visit * Reason Comments Med Refill Encounter Details Date Type Department Care Team ([facility] st Contact Info) Description 11/25/2023 Refill [facility]BI[facility] [address] [place], [place] [phone] Name, MD Henry 230 [place], [place] [phone] Iron deficiency anemia, unspecified iron deficiency anemia [...] Description 04/14/2025 2:30 PM EST Office Visit [facility] MEDICINE [address] [place] [address] Name, MD Henry [address] [place] [address] 04/30/2025 9:30 AM EST Telemedicine [facility] MEDICINE [address] [place] [address] Suni Rodriguez RN 06/08/2025 9:30 AM EST Office Visit [facility] ADULT DENTAL [address] [place] [address] Clarisse Bar [address] [place] [address] documented as of this encounter Visit Diagnoses Diagnosis Iron deficiency anemia, unspecified iron deficiency anemia type documented in this encounter Additional Health Concerns Assessment Noted Time PHQ-9 Depression Total Score: 6 09/14/19 23 9:53 AM EDT documented as of this encounter Care Teams Desk Clerk Relationship Specialty Start Date End Date Name, MD Henry [address] [place] [address] PCP - General Family Medicine 08/19/15 Finn Galindo Sustainable Agriculture FacultySap Basis 08/06/23 Mari Carrion Records Section SupervisorSap Basis 12/03/23 Chiquita 9/7/24 documented as of this encounter
--- OUTSIDE RECORDS SUMMARY | 2025-04-12 14:19 | XMS_ITS | Clinical Summary ---
Author Organization [employer] Address [address] [facility] [address] [place] [address] Care Team Providers Care Parcel Wrapper Name Role Phone Name, Henry BARTLETT Primary Care Provider [phone] Allergies Active Allergy Reactions Criticality Noted Date Comments Celecoxib 05/23/2022 Other reaction(s): GI UPSET Ibuprofen Unknown 09/27/2008 Other reaction(s): gi upset Other Reaction(s): Not available, Not available, OTHER Has gastritis,stomach upset Iodinated Contrast Media 09/27/2008 Other reaction(s): anaphylactic shock Other Reaction(s): OTHER Throat closure Iodine Unknown 10/21/2015 Metformin Hcl 10/01/2011 Abdominal pain Nitrofurantoin 09/04/2012 Pineapple Itching 12/04/2022 Medications * This document contains information received from the source organization and may not represent a complete record from that organization. Umeclidinium [place] (Incruse Ellipta) 62.5 MCG/ACT aerosol powder Inhale [...] TOPICALLY EVERY DAY AND REMOVE AT BEDTIME 04/26/2 024 Active lidocaine (Lidoderm) 5 % patch APPLY 1 PATCH TOPICALLY TO SKIN, LEAVE ON FOR 12 HOURS AND OFF FOR 12 HOURS DIRECTED Active Fluticasone Furoate-Vilanter ol (Breo Ellipta) 100-25 MCG/ACT aerosol powder Inhale 1 Inhalation Once daily. Active traZODone (Desyrel) 100 MG tablet Take 1 tablet (100 mg) by mouth at bedtime. Active albuterol (Ventolin HFA) 108 (90 Base) MCG/ACT inhalerIndicatio ns:Short of breath on exertion Inhale 2 puffs every 6 (six) hours if needed for wheezing. 18 g 11 04/12/20 25 1:19 PM EST 025 Active insulin syringe-needle U-100 (UltiCare Insulin Syringe) 31G X 09/25 1 mL misc Use as instructed 100 each 5 025 Active FREESTYLE LITE test stripIndications :Type 2 diabetes mellitus with other specified complication, with long-term current use of insulin (HCC) TEST BLOOD SUGAR THREE TIMES DAILY 50 strip 11 025 Active atorvastatin (Lipitor) 20 MG tabletIndication s:Hypercholester olemia TAKE 1 TABLET BY MOUTH EVERY MORNING 90 tablet 1 025 Active metFORMIN (Glucophage) 500 MG tabletIndication s:Type 2 diabetes mellitus with other specified complication, with long-term current use of insulin (HCC) TAKE 1 TABLET BY MOUTH TWICE DAILY IN THE MORNING AND IN THE EVENING WITH FOOD 180 tablet 3 025 Active TRUEplus Lancets 33G miscIndications: Diabetic polyneuropathy associated with type 2 diabetes mellitus (HCC) TEST BLOOD SUGAR THREE TIMES DAILYTEST BLOOD SUGAR THREE TIMES DAILY 100 each 11 025 Active ferrous gluconate (Fergon) 324 (38 Fe) MG tabletIndication s:Iron deficiency anemia, unspecified iron deficiency anemia type TAKE 1 TABLET BY MOUTH EVERY MORNING WITH BREAKFAST 90 tablet 1 025 Active lactulose (Chronulac) 10 GM/15ML solution TAKE 15 ML BY MOUTH EVERY DAY 450 mL 5 025 Active cetirizine (ZyrTEC) 10 MG tabletIndication s:Seasonal allergies TAKE 1 TABLET BY MOUTH EVERY MORNING 90 tablet 1 025 Active topiramate 50 MG tabletIndication s:Migraine without status migrainosus, not intractable, unspecified migraine type TAKE 1 TABLET BY MOUTH TWICE DAILY IN THE MORNING AND AT BEDTIME 60 tablet 11 04/12/20 25 1:19 PM EST 025 Active fluticasone (Flonase) 50 MCG/ACT nasal sprayIndications :Chronic bronchitis, unspecified chronic bronchitis type (CMS/HCC) ([facility]) USE 2 SPRAYS IN EACH NOSTRIL ONCE DAILY DIRECTED 48 g 1 025 Active albuterol (2.5 MG/3ML) 0.083% nebulizer solution INHALE 1 AMPULE USING A NEBULIZER EVERY 6 HOURS NEEDED FOR WHEEZING OR SHORTNESS OF BREATH 360 mL 3 025 Active Alcohol Swabs (Alcohol Prep) 70 % padsIndications: Diabetic polyneuropathy associated with type 2 diabetes mellitus ([facility]) TEST BLOOD SUGAR THREE TIMES DAILY 100 each 11 025 Active amoxicillin (Amoxil) 500 MG capsule Take 4 capsules of amoxicillin 500 mg 1 hour prior dental procedure 12 capsule 025 Active famotidine (Pepcid) 20 MG tabletIndication s:Heartburn TAKE 1 TABLET BY MOUTH AT BEDTIME 90 tablet 3 04/12/20 25 1:19 PM EST 025 Active losartan (Cozaar) 50 MG tabletIndication s:Hypertension, unspecified type Take 1 tablet (50 mg) by mouth Once per day. 90 tablet 3 04/12/20 25 1:19 PM EST 025 2025 Active donepezil (Aricept) 10 MG tablet Take 1 tablet (10 mg) by mouth at bedtime. 30 tablet 11 04/12/20 25 1:19 PM EST 025 2025 Active Continuous Glucose Gear Inspector (FreeStyle Jimena 3 [place]) device 1 each Once per day. Use as directed for CGM 1 each 025 Active Continuous Glucose Sensor (FreeStyle Jimena 3 Plus Sensor) misc 1 each every 15 days. Apply 1 every 15 days as directed for CGM 2 each Active glucose blood (FreeStyle Precision Richard Test) test strip Use to test blood sugar 3 times daily in case of CGM failure or extremes of BG 100 each 11 025 2025 Active Aspirin Low Dose 81 MG chewable tablet CHEW 1 TABLET BY MOUTH EVERY DAY IN THE MORNING 90 tablet 1 Active riboflavin (vitamin B2) 100 mg tablet tabletIndication s:Hypercholester olemia TAKE 4 TABLETS BY MOUTH EVERY DAY IN THE MORNING 360 tablet 1 Active sucralfate (Carafate) 1 GM/10ML suspension TAKE 10 ML BY MOUTH EVERY TWELVE HOURS ON AN EMPTY STOMACH 1 HOUR BEFORE MEALS AND AT BEDTIME 473 mL 11 04/12/20 25 1:19 PM EST Active tamsulosin (Flomax) 0.4 MG 24 hr capsule TAKE 1 CAPSULE BY MOUTH EVERY EVENING 90 capsule 1 Active sodium chloride (Mcgill Nasal Rea) 0.65 % nasal sprayIndications :Chronic frontal sinusitis Administer 1 spray into each nostril if needed for congestion. 30 mL 025 2025 Active amoxicillin (Amoxil) 500 MG capsule Take 4 capsules of amoxicillin 500 mg 1 hour prior dental procedure 12 capsule 025 Active Azelastine HCl 137 MCG/SPRAY solutionIndicati ons:Chronic bronchitis, unspecified chronic bronchitis type (CMS/HCC) ([facility]) INSTILL 1 SPRAY IN EACH NOSTRIL TWICE DAILY 30 mL 2 025 Active citalopram (CeleXA) 10 MG tablet TAKE 1 TABLET BY MOUTH EVERY DAY 30 tablet 04/12/20 1:19 PM EST 025 Active SUMAtriptan (Imitrex) 100 MG tabletIndication s:Migraine without status migrainosus, not intractable, unspecified migraine type TAKE 1 TABLET BY MOUTH AT ONSET OF MIGRAINE. MAY REPEAT ONCE AFTER 2 HOURS IF NEEDED 10 tablet 2 025 Active pregabalin (Lyrica) 100 MG capsuleIndicatio ns:Diabetic polyneuropathy associated with type 2 diabetes mellitus (HCC) TAKE 1 CAPSULE BY MOUTH THREE TIMES DAILY IN THE MORNING, EVENING, AND BEDTIME 90 capsule 025 Active Diclofenac Sodium 1 % gelIndications:C hronic low back pain, unspecified back pain laterality, unspecified whether sciatica present APPLY 2 GRAMS TOPICALLY TO AFFECTED AREA(S) TWICE DAILY DIRECTED 100 g 1 03/29/20 9:35 AM EST Active insulin degludec (Tresiba) 100 UNIT/ML injection INJECT 15 UNITS SUBCUTANEOUSLY ONCE DAILY (dose decrease) 10 mL 11 04/12/20 1:19 PM EST Active oxyCODONE-acetam inophen (Percocet) 7.5-325 MG tabletIndication s:Chronic pain syndrome TAKE 1 TABLET BY MOUTH EVERY 8 HOURS NEEDED FOR SEVERE PAIN 84 tablet Active Diclofenac Sodium 1 % gelIndications:C hronic low back pain, unspecified back pain laterality, unspecified whether sciatica present APPLY 2 GRAM TOPICALLY TO AFFECTED AREA(S) TWICE DAILY 100 g 1 2024 Discontinued Levemir 100 UNIT/ML injectionIndicat ions:Type 2 diabetes mellitus with other specified complication, with long-term current use of insulin (HCC) INJECT 30 UNITS SUBCUTANEOUSLY EVERY DAY 10 mL 11 2024 Discontinued(D uplicate order (will not trigger notification to Pharmacy)) oxyCODONE-acetam inophen (Percocet) 7.5-325 MG tabletIndication s:Chronic pain syndrome Take 1 tablet by mouth every 8 (eight) hours if needed for severe pain for up to 28 days. 84 tablet 025 2024 Discontinued oxyCODONE-acetam inophen (Percocet) 7.5-325 MG tabletIndication s:Chronic pain syndrome Take 1 tablet by mouth every 8 (eight) hours if needed for severe pain for up to 28 days. 84 tablet 025 2024 Discontinued insulin degludec (Tresiba FlexTouch) 100 UNIT/ML injection Inject under the skin. 2024 Discontinued(R eorder (will not trigger notification to Pharmacy)) insulin degludec (Tresiba FlexTouch) 100 UNIT/ML injection Inject 30 Units under the skin Once per day. 10 mL 11 025 2024 Discontinued Tresiba 100 UNIT/ML injection INJECT 30 UNITS SUBCUTANEOUSLY ONCE DAILY 10 mL 11 025 2024 Discontinued Active Problems Problem Noted Date Diagnosed Date Depression 02/16/2025 Diabetes mellitus 02/16/2025 Hypercholesterolemia 02/16/2025 Hypertension 02/16/2025 Severe obesity (BMI 35.0-39.9) with comorbidity ([facility]) 02/16/2025 Chronic foot pain 02/16/2025 Mild vascular dementia with anxiety ([facility]) Dental root caries 01/13/2025 PARAM (generalized anxiety disorder) 11/23/2024 Excessive attrition of teeth, limited to enamel 10/01/2024 Abfraction 10/01/2024 Tooth abrasion 10/01/2024 Stage 3a chronic kidney disease ([facility]) 2024 Abdominal hernia without obstruction and without gangrene 07/29/2024 Dental plaque 04/01/2024 Generalized gingival recession 04/01/2024 Missing teeth, acquired 04/01/2024 Xerostomia 04/01/2024 Hair loss 02/10/2024 Assessment & Plan (02/10/2024 8:20 PM EDT): Suspect stress induced hair loss, however will check labs COPD exacerbation ([facility]) 02/10/2024 Assessment & Plan (02/10/2024 8:20 PM [...] depressive disord er), recurrent severe, without psychosis ([facility]/HCC) 03/29/2022 Epigastric pain 03/29/2022 Seasonal allergic reaction [...] 09/20/2015 Hyperlipidemia 09/20/2015 Migraine 09/20/2015 Morbid obesity (CMS/HCC) 09/20/2015 Essential hypertension 05/31/2015 Diabetes mellitus with neuropathy 05/20/2013 History of pulmonary embolism 08/08/2012 SHANNAN (obstructive sleep apnea) 04/08/2012 Overview (02/16/2025): Not using noninvasive ventilation device History of sinus surgery 03/31/2012 Chronic hepatitis C (CMS/HCC) 03/31/2012 Overview (02/16/2025): Hepatitis C Genotype 3 Tx Started 07/13/14 Sovaldi 400 mg Take One Tab Daily & Ribavirin 200 mg Take 3 tabs twice daily w/ meals for 24 Weeks. End date 12/28/14. Virus level=zero on: 08/03/14, 10/05/2014, 12/28/2014 (=ETR). Virus level=zero 05/30/2015(=SVR). (05/12/2014: Genotype 3, 18,000 units. Noninvasive studies suggest early cirrhosis. History of poorly tolerated interferon treatment because of depression.) Tobacco use disorder 01/01/2011 Ankle fracture, left 10/31/2010 Allergic rhinitis 06/01/2010 Radiculitis, lumbosacral 2009 Sacroiliac pain 2009 Low back pain 2009 Menopausal syndrome (hot flashes) 09/02/2009 Elevated rheumatoid factor 10/26/2008 Overview (02/16/2025): The patient is follow at the arthritis treatment center in [facility] on no hand deformity DJD (degenerative joint disease) 09/27/2008 Overview (02/16/2025): Patient goes to arthritis treatment center, s/p bilateral TKR?2012 by ZOEY GERD (gastroesophageal reflux disease) 9 Obesity 09/27/2008 Resolved Problems Problem Noted Date Diagnosed Date Resolved Date Itching 01/02/2024 03/02/2024 Delirium 11/13/2023 03/02/2024 Diabetes mellitus 09/20/2015 01/02/2023 Encounters Date Type Department Care Team Description 04/12/2025 Telephone [facility] MEDICINE [address] [place] [address] Name, MD Henry 04/12/2025 Refill [facility] P[facility]S [address] [place] [address] Name, MD Henry Chronic pain syndrome 04/06/2025 Telephone [facility] [address] [place] [address] Name, MD Henry FYI 03/29/2025 Refill [facility] [address] [place] [address] NameHenry MD 03/29/2025 Refill [facility] [address] [place] [address] NameHenry MD Type 2 diabetes mellitus with other specified complication, with long-term current use of insulin ([facility]) 03/29/2025 Telephone [facility] [address] [place] [address] NameHenry MD Med Refill 03/21/2025 Refill [facility] [address] [place] [address] Yue Olsen NP Chronic low back pain, unspecified back pain laterality, unspecified whether sciatica present 03/15/2025 Refill [facility] [address] [place] [address] Yue Olsen NP Chronic pain syndrome 03/12/2025 Refill [facility] PED[facility] [address] [place] [address] Yue Olsen NP Chronic pain syndrome 03/12/2025 Refill [facility] MEDICINE [address] [place] [phone] NameHenry MD Diabetic polyneuropathy associated with type 2 diabetes mellitus (HCC) 03/08/2025 11:00 AM EDT Office Visit [facility] ADULT DENTAL [address] [place] [address] Holger Marquez, DDS 03/04/2025 Refill [facility] PEDS [address] [place] [address] Henry Bernardo MD Migraine without status migrainosus, not intractable, unspecified migraine type 03/03/2025 Refill [facility] PEDS [address] [place] [address] Henry Bernardo MD Chronic pain syndrome 02/19/2025 Refill [facility] MEDICINE [address] [place] [phone] NameHenry MD Type 2 diabetes mellitus with other specified complication, with long-term current use of insulin ([facility]) 02/19/2025 Refill [facility] MEDICINE [address] [place] [phone] NameHenry MD 02/17/2025 Refill [facility] [address] [place] [phone] NameHenry MD Chronic bronchitis, unspecified chronic bronchitis type (CMS/HCC) (HCC) 02/16/2025 10:00 AM EDT Office Visit [facility] ADULT DENTAL [address] [place] [address] Mason-Acost a, Lorena, DDS Missing teeth, acquired (Primary Dx) 02/12/2025 9:00 AM EDT Office Visit [facility] ADULT DENTAL [address] [place] [address] Mason-Acost a, Lorena, DDS Missing teeth, acquired (Primary Dx) 02/09/2025 10:30 AM EDT Office Visit [facility] MEDICINE [address] [place] [phone] Ne Elizabeth FNP Chronic frontal sinusitis (Primary Dx) 02/09/2025 Travel 02/09/2025 Refill [facility] WALK-IN CENTER [address] [place] [address] Henry Bernardo MD 02/08/[address] [address] Henry Bernardo MD Nurse Triage 02/05/2025 9:00 AM EDT Telemedicine [address] [address] Suni Rodriguez, EDWARD Long-term current use of opiate analgesic 02/05/[address] [address] Suni Rodriguez, RN BPI Scoring 02/05/2025 Travel 02/01/[address] [address] Henry Bernardo MD Chronic pain syndrome 01/27/[address] [address] Henry Bernardo MD Diabetic polyneuropathy associated with type 2 diabetes mellitus ([facility]/HCC) 01/26/[address] [address] Henry Bernardo MD Hypercholesterolemia 01/21/[address] [address] Henry Bernardo MD PA CGM 01/21/[address] [address] Henry Bernardo MD Durable Medical Equipment (Diabetic shoes) 01/19/2025 1:45 PM EDT Office Visit [address] [address] Henry Bernardo MD Type 2 diabetes mellitus with other specified complication, with long-term current use of insulin (CMS/[facility]) (Primary Dx); Ingrown toenail; Mild vascular dementia with anxiety ([facility]); Hypertension, unspecified type 01/19/2025 Travel 01/18/2025 Refill [facility] [address] [place] [address] Name, MD Henry Heartburn 01/15/2025 Telephone [facility] MED[facility] [address] [place] [address] Name, MD Henry CHARTPREP 01/13/2025 9:00 AM EDT Office Visit [facility] ADULT DENTAL [address] [place] [address] Holger Marquez DDS Dental root caries (Primary Dx) from Last 3 Months Immunizations Immunization Administration [...] Moderna Covid-19 Vaccine 12+ 06/16/2020,05/26/19 21 Novel [id number], preservative-free 05/20/2009 Pfizer Covid-19 Vaccine 12+ 07/29/2024,1 [...] 04/14/2025 2:30 PM EST Office Visit [facility] MED[facility]INE [address] [place] [address] Name, MD Henry [address] [place] [address] 04/30/2025 9:30 AM EST Telemedicine [facility] [address] [place] [address] Suni Rodriguez, EDWARD 06/08/2025 9:30 AM EST Office Visit [facility] ADULT DENTAL [address] [place] [address] Clarisse Bar [address] [place] [address] Health Maintenance Due Date Last Done Comments CT Colonography 1959 FIT DNA/Cologuard 1959 FIT 1959 FOBT 1959 Sigmoidoscopy 1959 Pap Smear 11/27/1980 HPV/Cotest 11/27/1989 RSV Patients and Patients Aged 60 years or older (1 - Risk 50-74 years 1-dose series) 11/27/2009 Zoster Vaccines (1 of 2) 11/27/2009 Mammogram 05/31/2023 05/31/2021, 05/29/2018 Eye Exam 09/10/2024 09/11/2023, 05/0 05/2023, 09/11/2023, Additional history exists COVID-19 Vaccine ( season) 2025 07/29/2024, 04/09/2023, 07/09/2022, Additional history exists Influenza Vaccine (#1) 2025 , 03/13/2023, 07/09/2022, Additional history exists Dental Oral Exam 04/04/2025 10/01/2024, , 07/11/2022, Additional history exists Dental Prophylaxis 04/04/2025 10/01/2024, 04/01/2024 Colonoscopy 04/12/2025 04/12/2020 Colorectal Cancer Screening 04/12/2025 Diabetes: Hemoglobin A1C 05/21/2025 025, 07/29/2024, 01/28/2024, Additional history exists Depression Monitoring 05/23/2025 11/20/2024, 025 Dental X-Ray: Bitewings 10/02/2025 10/01/2024, 07/11 Alcohol/Substance Use Screening 11/18/2025 11/18/2024 SDOH Screening 11/18/2025 11/18/2024 Diabetes: Foot Exam 01/19/2026 01/19/2025, 01/19/2025, 01/19/2025, Additional history exists Diabetes: Urine Protein Screening 02/12/2026 02/12/2025, 10/16/2023, 10/16/2023, Additional history exists Lipid Panel 02/12/2026 02/12/2025, 09/2023, 03/02/2020 Tobacco Screening 03/08/2026 03/08/2025 Dental X-Ray: Full Mouth 03/11/2027 03/10/2024 DTaP/Tdap/Td [...] on patient's age to complete this topic Goals Goal Patient Goal Type Associated Problems Recent Progress Patient-Stated? Author Help patients manage their type 2 diabetes Care Plan Help patients manage their type 2 diabetes No Preston, Sonylee Weekly blood pressure task Care Plan Weekly blood pressure task No Preston, Sonylee Help patients manage their type 2 diabetes Care Plan Help patients manage their type 2 diabetes No Preston, Sonylee Patient has chronic kidney disease Care Plan Patient has chronic kidney disease No Preston, Sonylee Help patients manage their type 2 diabetes Care Plan Help patients manage their type 2 diabetes No Preston, Sonylee Patient has diabetic neuropathy Care Plan Patient has diabetic neuropathy No Preston, Sonylee Weekly blood pressure task Care Plan Weekly blood pressure task No Preston, Sonylee Weekly blood pressure task Care Plan Weekly blood pressure task No Preston, Sonylee Patient has chronic kidney disease Care Plan Patient has chronic kidney disease No Preston, Sonylee Patient has chronic kidney disease Care Plan Patient has chronic kidney disease No Preston, Sonylee Patient has diabetic neuropathy Care Plan Patient has diabetic neuropathy No Preston, Sonylee Patient has diabetic neuropathy Care Plan Patient has diabetic neuropathy No Preston, Sonylee Weekly blood pressure task Care Plan Weekly blood pressure task No Rose Kidd Weekly blood pressure task Care Plan Weekly blood pressure task No Kidd, Rose Weekly blood pressure task Care Plan Weekly blood pressure task No Kidd Rose Patient has chronic kidney disease Care Plan Patient has chronic kidney disease No Kidd, Rose Patient has chronic kidney disease Care Plan Patient has chronic kidney disease No Kidd, Rose Patient has chronic kidney disease Care Plan Patient has chronic kidney disease No Kidd Rose Patient has diabetic neuropathy Care Plan Patient has diabetic neuropathy No Kidd Rose Patient has diabetic neuropathy Care Plan Patient has diabetic neuropathy No Kidd Rose Patient has diabetic neuropathy Care Plan Patient has diabetic neuropathy No Rose Kidd Weekly blood pressure task Care Plan Weekly blood pressure task No Rocky Talamantes Weekly blood pressure task Care Plan Weekly blood pressure task No Rocky Talamantes Weekly blood pressure task Care Plan Weekly blood pressure task No Rocky Talamantes Patient has chronic kidney disease Care Plan Patient has chronic kidney disease No Rocky Talamantes Patient has chronic kidney disease Care Plan Patient has chronic kidney disease No Rocky Talamantes Patient has chronic kidney disease Care Plan Patient has chronic kidney disease No Rocky Talamantes Patient has diabetic neuropathy Care Plan Patient has diabetic neuropathy No Rocky Talamantes Patient has diabetic neuropathy Care Plan Patient has diabetic neuropathy No Rocky Talamantes Patient has diabetic neuropathy Care Plan Patient has diabetic neuropathy No Rocky Talamantes Weekly blood pressure task Care Plan Weekly blood pressure task No Suni Rodriguez RN Weekly blood pressure task Care Plan Weekly blood pressure task No Suni Rodriguez RN Weekly blood pressure task Care Plan Weekly blood pressure task No Suni Rodriguez RN Patient has chronic kidney disease Care Plan Patient has chronic kidney disease No Suni Rodriguez RN Patient has chronic kidney disease Care Plan Patient has chronic kidney disease No Suni Rodriguez RN Patient has chronic kidney disease Care Plan Patient has chronic kidney disease No Suni Rodriguez RN Patient has diabetic neuropathy Care Plan Patient has diabetic neuropathy No Suni Rodriguez RN Patient has diabetic neuropathy Care Plan Patient has diabetic neuropathy No Suni Rodriguez RN Patient has diabetic neuropathy Care Plan Patient has diabetic neuropathy No Suni Rodriguez RN Weekly blood pressure task Care Plan Weekly blood pressure task No Yi Talamantes Weekly blood pressure task Care Plan Weekly blood pressure task No Yi Talamantes Weekly blood pressure task Care Plan Weekly blood pressure task No Yi Talamantes Patient has chronic kidney disease Care Plan Patient has chronic kidney disease No Yi Talamantes Patient has chronic kidney disease Care Plan Patient has chronic kidney disease No Yi Talamantes Patient has chronic kidney disease Care Plan Patient has chronic kidney disease No Yi Talamantes Patient has diabetic neuropathy Care Plan Patient has diabetic neuropathy No Yi Talamantes Patient has diabetic neuropathy Care Plan Patient has diabetic neuropathy No Yi Talamantes Patient has diabetic neuropathy Care Plan Patient has diabetic neuropathy No Yi Talamantes Procedures Procedure Name Priority Date/Time Associated Diagnosis Comments DENTURE FOLLOWUP Routine 03/08/2025 11:0 0 AM EDT CASE PRESENTATION, DETAILED AND EXTENSIVE TREATMENT PLANNING Routine 02/16/2025 10:00 AM EDT Missing teeth, acquired 10 ADD TOOTH TO EXISTING PARTIAL DENTURE Routine 02/16/2025 10:00 AM EDT Missing teeth, acquired 6 ADD TOOTH TO EXISTING PARTIAL DENTURE Routine 02/16/2025 10:00 AM EDT Missing teeth, acquired BASIC METABOLIC PANEL Routine 02/12/2025 9:37 AM EDT Type 2 diabetes mellitus with other specified complication, with long-term current use of insulin ([facility]) Hypertension, unspecified type ALBUMIN, RANDOM URINE W/CREATININE Routine 02/12/2025 9:37 AM EDT Type 2 diabetes mellitus with other specified complication, with long-term current use of insulin ([facility]) LIPID PANEL, STANDARD Routine 02/12/2025 9:37 AM EDT Type 2 diabetes mellitus with other specified complication, with long-term current use of insulin ([facility]) DENTURE IMPRESSION Routine 02/12/2025 9: 00 AM EDT Missing teeth, acquired POCT GLUCOSE Routine 01/19/2025 1:45 PM EDT Type 2 diabetes mellitus with other specified complication, with long-term current use of insulin ([facility]) 6 EXTRACTION, ERUPTED TOOTH REQ REMOVAL OF BONE AND/OR SECTIONING OF TOOTH Routine 01/13/2025 9:00 AM EDT CASE PRESENTATION, DETAILED AND EXTENSIVE TREATMENT PLANNING Routine 01/13/2025 9:00 AM EDT POCT GLYCATED HEMOGLOBIN, TOTAL Routine 11/18/2024 11:28 AM EDT Type 2 diabetes mellitus with other specified complication, with long-term current use of insulin ([facility]) PROPHYLAXIS - ADULT Routine 10/01/2024 1 0:00 [...] dental examination Dental caries Generalized gingival recession MAMMOGRAM GENERIC Routine 05/31/2021 12: 50 PM EST HM COLONOSCOPY Routine 04/12/2020 10:05 AM EST from Last 3 Months or Most Recently Relevant to Health Maintenance Results * Albumin, Random Urine W/Creatinine (02/12/2025 9:37 AM EDT) Creatinine, Urine 137.14 mg/dL [facility] Microalbumin Urine 14.0 mg/L [facility] Microalbum Creatinine Ratio Ur 10.2 <30 ug/mg cr [facility] Comment:Albumin/Creatinine R atio Reference Ranges: Normal: < 30 ug/mg creatinine Microalbuminuria: 30 - 300 ug/mg creatinineClinical Albuminuria: > 300 ug/mg creatinine Urine (Urine, Random) 02/12/2025 9:37 AM EDT 02/12/2025 11:20 AM EDT us Henry Bernardo MD LAB URINE ORDERABLES Final Resul t [facility] [address] [place] [phone] * (ABNORMAL) Lipid Panel, Standard (02/12/2025 9:37 AM EDT) Triglycerides 149 <150 mg/dL [facility] Comment:Desirable Triglyceri de: less than 150 mg/dLBorderline High Triglyceride 150-199 mg/dLHigh Triglyceride: 200-499 mg/dLVery High Triglyceride: greater than or equal to 5OO mg/dL Cholesterol 150 <200 mg/dL [facility] Comment:Desirable Cholestero l: less than 200 mg/dLBorderline High Cholesterol: 200-239 mg/dLHigh Cholesterol: greater than 239 mg/dL LDL Cholesterol Calculated 81 <100 mg/dL [facility] Comment:Desirable LDL: less than 100 mg/dLNear Optimal/Above Optimal LDL: 110- 129 mg/dLBorderline High LDL: 130-159 mg/dLHigh LDL: 160-189 mg/dLVery High LDL: greater than or equal to 190 mg/dL HDL Cholesterol 40(L) >40 mg/dL [facility] Comment:Desirable HDL: great er than 40 mg/dL Note: This HDL assay may give artificially low results in patients with liver disease. Blood Venous blood specimen / Unknown 02/12/2025 9:37 AM EDT 02/12/2025 11:26 AM EDT us Henry Name MD LAB BLOOD ORDERABLES Final Resul t [facility] [address] [place] [address] [phone] * (ABNORMAL) Basic Metabolic Panel (02/12/2025 9:37 AM EDT) Pathologist [facility] Sodium 142 135 - 145 mmol/L [facility] Potassium 5.0 3.3 - 5.1 mmol/L [facility] Chloride 111(H) 96 - 108 mmol/L [facility] Carbon Dioxide 25 22 - 29 mmol/L [facility] Anion Gap 11(L) 12 - 20 [facility] Urea Nitrogen (BUN) 34(H) 9 - 16 mg/dL [facility] Creatinine, Serum 1.32 0.5 - 1.4 mg/dL [facility] Estimated Glomerular Filt Rate 40 [facility] Comment:Chronic Kidney Disea se: Estimated GFR < 60 mL/min/[id number] Kidney Disease: Estimated GFR < 15 mL/min/1.73m2 Glucose 98 60 - 115 mg/dL [facility] Calcium 9.3 8.4 - 10.2 mg/dL [facility] Blood Venous blood specimen / Unknown 02/12/2025 9:37 AM EDT 02/12/2025 11:26 AM EDT us Henry Bernardo MD LAB BLOOD ORDERABLES Final Resul t [facility] [address] [place] [address] [phone] * POCT Glucose (01/19/2025 1:45 PM EDT) Glucose Blood, POC 110 60 - 200 [...] TEST ENTER/EDIT OR DERABLES Final Result * Mammography Report 1 (05/31/2021 12:50 PM EST) Anatomical Region Laterality Modality Breast Bilateral Mammography 05/31/2021 12:5 0 PM EST Narrative 06/01/2021 11:03 AM EST Refer to the Notes tab for result details [facility] Procedure: Mammography Report 1 Procedure Note Provider, MD Eric - 08/05/2022 Refer to the Notes tab for result details [facility] Procedure: Mammography Report 1 Henry Name MD DIOP BI PROCEDURES Final Result * Hm Colonoscopy (04/12/2020 10:05 AM EST) Colonoscopy Normal Normal Narrative Amina Stroud - 04/12/2020 10:05 AM EST Recommended 5 year follow up ([facility]) Historical Provider HEALTH MAINTENANCE Final Result from Last 3 Months or Most Recently Relevant to Health Maintenance Additional Health Concerns Active Problems Noted Date Diagnosed Date Help patients manage their type 2 diabetes 03/29 Weekly blood pressure task 03/29/2025 Help patients manage their type 2 diabetes 03/29 Patient has chronic kidney disease 03/29/2025 Help patients manage their type 2 diabetes 03/29 Patient has diabetic neuropathy 03/29/2025 Weekly blood pressure task 03/29/2025 Weekly blood pressure task 03/29/2025 Patient has chronic kidney disease 03/29/2025 Patient has chronic kidney disease 03/29/2025 Patient has diabetic neuropathy 03/29/2025 Patient has diabetic neuropathy 03/29/2025 Weekly blood pressure task 03/29/2025 Weekly blood pressure task 03/29/2025 Weekly blood pressure task 03/29/2025 Patient has chronic kidney disease 03/29/2025 Patient has chronic kidney disease 03/29/2025 Patient has chronic kidney disease 03/29/2025 Patient has diabetic neuropathy 03/29/2025 Patient has diabetic neuropathy 03/29/2025 Patient has diabetic neuropathy 03/29/2025 Weekly blood pressure task 04/06/2025 Weekly blood pressure task 04/06/2025 Weekly blood pressure task 04/06/2025 Patient has chronic kidney disease 04/06/2025 Patient has chronic kidney disease 04/06/2025 Patient has chronic kidney disease 04/06/2025 Patient has diabetic neuropathy 04/06/2025 Patient has diabetic neuropathy 04/06/2025 Patient has diabetic neuropathy 04/06/2025 Weekly blood pressure task 04/12/2025 Weekly blood pressure task 04/12/2025 Weekly blood pressure task 04/12/2025 Patient has chronic kidney disease 04/12/2025 Patient has chronic kidney disease 04/12/2025 Patient has chronic kidney disease 04/12/2025 Patient has diabetic neuropathy 04/12/2025 Patient has diabetic neuropathy 04/12/2025 Patient has diabetic neuropathy 04/12/2025 Weekly blood pressure task 04/12/2025 Weekly blood pressure task 04/12/2025 Weekly blood pressure task 04/12/2025 Patient has chronic kidney disease 04/12/2025 Patient has chronic kidney disease 04/12/2025 Patient has chronic kidney disease 04/12/2025 Patient has diabetic neuropathy 04/12/2025 Patient has diabetic neuropathy 04/12/2025 Patient has diabetic neuropathy 04/12/2025 Insurance MEDICARE [facility] STAND ADULT [address] [place] [address] [address] [place] [address] Care Teams Parcel Wrapper Relationship Specialty Start Date End Date Name, MD Henry [address] [place] [phone] PCP - General Family Medicine 08/19/15 Finn Galindo Administrative CoordinatorCeramic Maker Demonstrator 08/06/23 Mari Carrion Wastewater EngineerCeramic Maker Demonstrator 12/03/23 Chiquita 01/18/24
--- OUTSIDE RECORDS SUMMARY | 2025-04-12 14:19 | XMS_ITS | Encounter Summary ---
Author Organization [employer] Address [address] [facility] 7t [place] [address] Care Team Providers Care Automatic Pinsetter Adjuster Name Role Phone Name, Henry BARTLETT Primary Care Provider [phone] Reason for Visit * Reason Comments Med Refill Encounter Details Date Type Department Care Team (Late Contact Info) Description 12/31/2022 Refill [facility] [address] [place] [address] [phone] NameHenry MD [address] [place] [address] [phone] Social History Tobacco Use Types Packs/Day Years [...] Description 04/14/2025 2:30 PM EST Office Visit [facility] [address] [place] [address] [phone] NameHenry MD [address] [place] [address] [phone] 04/30/2025 9:30 AM EST Telemedicine [facility] [address] [place] [address] Suni Rodriguez RN 06/08/2025 9:30 AM EST Office Visit [facility] [address] [place] [address] DipikaClarisse [address] [place] [address] documented as of this encounter Visit Diagnoses Not on filedocumented in this encounter Additional Health Concerns Assessment Noted Time PHQ-9 Depression Total Score: 6 09/14/19 23 9:53 AM EDT documented as of this encounter Care Teams Automatic Pinsetter Adjuster Relationship Specialty Start Date End Date Name, MD Henry [address] [place] [address] PCP - General Family Medicine 08/19/15 Finn Galindo Axminster WeaverBrand Engineer 08/06/23 Mari Carrion Combination WorkerBrand Engineer 12/03/23 Chiquita 01/18/24 documented as of this encounter
--- OUTSIDE RECORDS SUMMARY | 2025-04-12 14:19 | XMS_ITS | Encounter Summary ---
Author Organization [employer] Address 75 [facility] 7t [place] [address] Care Team Providers Care Cigarette Packing Machine Operator Name Role Phone Name, Henry BARTLETT Primary Care Provider [phone] Reason for Visit * Reason Comments Med Refill Encounter Details Date Type Department [facility] Description 09/17/2022 Refill [facility] [address] [place] [address] [phone] NameHenry MD [address] [place] [address] [phone] Social History Tobacco Use Types Packs/Day Years [...] Upcoming Encounters Date Type Department Care Team ([facility] Description 04/14/2025 2:30 PM EST Office Visit [facility] [address] [place] [address] [phone] Name, MD Henry [address] [place] [address] 04/30/2025 9:30 AM EST Telemedicine [facility] [address] [place] [address] Suni Rodriguez, RN 06/08/2025 9:30 AM EST Office Visit [facility] ADULT DENTAL [address] [place], [place] [phone] Clarisse Bar [address] [place] [address] documented as of this encounter Visit Diagnoses Not on filedocumented in this encounter Additional Health Concerns Assessment Noted Time PHQ-9 Depression Total Score: 6 09/14/19 23 9:53 AM EDT documented as of this encounter Care Teams Cigarette Packing Machine Operator Relationship Specialty Start Date End Date Name, [place] [address] PCP - General Family Medicine 08/19/15 Finn Galindo Sole BufferAdministrator 08/06/23 Mari Carrion Clinical Cytogenetics DirectorAdministrator 12/03/23 Chiquita 01/18/24 documented as of this encounter
--- OUTSIDE RECORDS SUMMARY | 2025-04-12 14:19 | XMS_ITS | Encounter Summary ---
Author Organization [employer] Address 75 [facility] 7t [place] [address] Care Team Providers Care Office Administrative Assistant Name Role Phone Name, Henry BARTLETT Primary Care Provider [phone] Reason for Visit * Reason Comments Med Refill Encounter Details Date Type Department Care Team ([facility] st Contact Info) Description 08/05/2023 Refill [facility] & PEDS [address] [place], [place] [phone] Name, MD Henry [address] [place] [address] Chronic pain syndrome Social History Tobacco Use [...] Description 04/14/2025 2:30 PM EST Office Visit [facility] MEDICINE [address] [place] [phone] Henry Bernardo MD [address] [place] [address] 04/30/2025 9:30 AM EST Telemedicine [facility] [address] [place] [address] Suni Rodriguez, EDWARD 06/08/2025 9:30 AM EST Office Visit [facility] ADULT DENTAL [address] [place] [address] Clarisse Bar [address] [place] [address] documented as of this encounter Visit Diagnoses Diagnosis Chronic pain syndrome documented in this encounter Additional Health Concerns Assessment Noted Time PHQ-9 Depression Total Score: 6 09/14/19 23 9:53 AM EDT documented as of this encounter Care Teams Office Administrative Assistant Relationship Specialty Start Date End Date Henry Bernardo MD [address] [place] [phone] PCP - General Family Medicine 08/19/15 Finn Galindo Mill ControllerApplication Development Liaison 08/06/23 Mari Carrion Furnace Repairer HelperApplication Development Liaison 12/03/23 Chiquita 01/18/24 documented as of this encounter
--- OUTSIDE RECORDS SUMMARY | 2025-04-12 14:19 | XMS_ITS | Encounter Summary ---
Author Organization [employer] Address [address] [facility] 7t [place] [address] Care Team Providers Care Newspaper Editor Name Role Phone Name, Henry BARTLETT Primary Care Provider [phone] Encounter Details Date Type Department Care Team (Late Contact Info) Description 11/01/2022 Orders Only [facility] [address] [place] [phone] Haley Gardner LPN Social History Tobacco Use [...] Description 04/14/2025 2:30 PM EST Office Visit [facility] [address] [place] [phone] Name, MD Henry [address] [place] [phone] 04/30/2025 9:30 AM EST Telemedicine [facility] [address] [place] [phone] Suni Rodriguez RN 06/08/2025 9:30 AM EST Office Visit [facility] [address] [place] [address], [place] [address] Clarisse Bar [address] [place], [place] [phone] documented as of this encounter Visit Diagnoses Not on filedocumented in this encounter Additional Health Concerns Assessment Noted Time PHQ-9 Depression Total Score: 6 09/14/19 23 9:53 AM EDT documented as of this encounter Care Teams Newspaper Editor Relationship Specialty Start Date End Date Name, MD Henry [address] [place] [address] PCP - General Family Medicine 08/19/15 Finn Galindo Care WorkerCard Lacer Jacquard 08/06/23 Mari Carrion Armhole PresserCard Lacer Jacquard 12/03/23 Chiquita 01/18/24 documented as of this encounter
--- OUTSIDE RECORDS SUMMARY | 2025-04-12 14:19 | XMS_ITS | Encounter Summary ---
Author Organization [employer] Address 75 [facility] 7t [place] [address] Care Team Providers Care Social Services Director Name Role Phone Name, Henry BARTLETT Primary Care Provider Reason for Visit * Reason Comments Med Refill Encounter Details Date Type Department Care Team ([facility] Contact Info) Description 01/25/2023 Refill [facility] [address] [place] [address] [phone] NameHenry MD [address] [place] [phone] Diabetic polyneuropathy associated with type 2 diabetes [...] Description 04/14/2025 2:30 PM EST Office Visit [facility] [address] [place] [address] [phone] NameHenry MD [address] [place] [phone] 04/30/2025 9:30 AM EST Telemedicine [facility] [address] [place] [address] Suni Rodriguez RN 06/08/2025 9:30 AM EST Office Visit [facility] ADULT DENTAL [address] [place] [address] Clarisse Bar [address] [place] [address] documented as of this encounter Visit Diagnoses Diagnosis Diabetic polyneuropathy associated with type 2 diabetes mellitus (HCC) documented in this encounter Additional Health Concerns Assessment Noted Time PHQ-9 Depression Total Score: 6 09/14/19 23 9:53 AM EDT documented as of this encounter Care Teams Social Services Director Relationship Specialty Start Date End Date Name, MD Henry [address] [place] [address] PCP - General Family Medicine 08/19/15 Finn Galindo Park PoliceConsumer Science Teacher 08/06/23 Mari Carrion Crusher SetterConsumer Science Teacher 12/03/23 Chiquita 01/18/24 documented as of this encounter
--- OUTSIDE RECORDS SUMMARY | 2025-04-12 14:19 | XMS_ITS | Encounter Summary ---
Author Organization [employer] Address 75 [facility] 7t [place] [address] Care Team Providers Care Hardwood Flooring Specialist Name Role Phone Name, Henry BARTLETT Primary Care Provider Encounter Details Date Type Department Care Team (Late Contact Info) Description 10/23/2022 Abstract [facility] [address] [place] [phone] NameHenry MD [address] [place] [phone] Social History Tobacco Use Types Packs/Day Years [...] Description 04/14/2025 2:30 PM EST Office Visit [facility] [address] [place] [address] [phone] NameHenry MD [address] [place] [phone] 04/30/2025 9:30 AM EST Telemedicine [facility] [address] [place] [address] [phone] Suni Rodriguez RN 06/08/2025 9:30 AM EST Office Visit [facility] ADULT DENTAL [address] [place], [place] [phone] Dipika, Clarisse [address] [place], [place] [phone] documented as of this encounter Procedures Procedure Name Priority Date/Time Associated Diagnosis Comments COLONOSCOPY Routine 04/12/2020 10:05 AM EST documented in this encounter Results * Colonoscopy (04/12/2020 10:05 AM EST) Colonoscopy Normal Normal Narrative Amina Stroud - 04/12/2020 10:05 AM EST Recommended 5 year follow up ([facility] us Historical Provider HEALTH MAINTENANCE Final Result documented in this encounter Visit Diagnoses Not on filedocumented in this encounter Additional Health Concerns Assessment Noted Time PHQ-9 Depression Total Score: 6 09/14/19 23 9:53 AM EDT documented as of this encounter Care Teams Hardwood Flooring Specialist Relationship Specialty Start Date End Date Name, MD Henry [address] [place] [address] PCP - General Family Medicine 08/19/15 Finn Galindo Operating Systems ProgrammerBusiness Continuity Global Director 08/06/23 Mari Carrion Chemical Etching ProcessorBusiness Continuity Global Director 12/03/23 Chiquita 01/18/24 documented as of this encounter
--- OUTSIDE RECORDS SUMMARY | 2025-04-12 14:19 | XMS_ITS | Encounter Summary ---
Author Organization [employer] Address 75 [facility] 7t [place] [address] Care Team Providers Care Halftone Operator Name Role Phone Name, Henry BARTLETT Primary Care Provider [phone] Reason for Visit * Reason Comments Med Refill Encounter Details Date Type Department Care Team ([facility] Contact Info) Description 02/08/2023 Refill [facility] CH[facility] MED & PEDS [address] [place] [address] Name, MD Henry [address] [place] [phone] Chronic pain syndrome Social History Tobacco Use [...] Upcoming Encounters Date Type Department Care Team ([facility] Contact Info) Description 04/14/2025 2:30 PM EST Office Visit [facility] [address] [place] [address] [phone] Name, MD Henry [address] [place] [phone] 04/30/2025 9:30 AM EST Telemedicine [facility] [address] [place], [place] [phone] Suni Rodriguez RN 06/08/2025 9:30 AM EST Office Visit [facility] ADULT DENTAL [address] [place], [place] [phone] Clarisse Bar [address] [place], [place] [phone] documented as of this encounter Visit Diagnoses Diagnosis Chronic pain syndrome documented in this encounter Additional Health Concerns Assessment Noted Time PHQ-9 Depression Total Score: 6 09/14/19 23 9:53 AM EDT documented as of this encounter Care Teams Halftone Operator Relationship Specialty Start Date End Date Name, MD Henry [address] [place] [address] PCP - General Family Medicine 08/19/15 Finn Galindo Food Technology TeacherPuller Through 08/06/23 Mari Carrion Staffing SpecialistPuller Through 12/03/23 Chiquita 01/18/24 documented as of this encounter
--- OUTSIDE RECORDS SUMMARY | 2025-04-12 14:19 | XMS_ITS | Encounter Summary ---
Author Organization [employer] Address 75 [facility] 7t [place] [address] Care Team Providers Care Griddle Attendant Name Role Phone Name, Henry BARTLETT Primary Care Provider [phone] Reason for Visit * Reason Onset Date Comments Medication Question 01/01/2023 pregabalin ( Lyrica) 50 MG capsule Encounter Details Date Type Department Care Team ([facility] st Contact Info) Description 01/01/2023 Telephone [facility] [address] [place], [place] [phone] Name, MD Henry [address] [place] [address] Medication Question (pregabalin (Lyrica) 50 MG capsule//) [...] to go back to100 mh. Patient speaks [employer]ot. documented in this encounter Plan of Treatment Upcoming Encounters Date Type Department Care Team (Late st Contact Info) Description 04/14/2025 2:30 PM EST Office Visit [facility] MEDICINE [address] [place] [phone] Name, MD Henry [address] [place] [address] 04/30/2025 9:30 AM EST Telemedicine [facility] MED[facility]INE [address] [place] [address] Suni Rodriguez RN 06/08/2025 9:30 AM EST Office Visit [facility] ADULT DENTAL [address] [place] [address] Clarisse Bar [address] [place] [address] documented as of this encounter Visit Diagnoses Not on filedocumented in this encounter Additional Health Concerns Assessment Noted Time PHQ-9 Depression Total Score: 6 09/14/19 23 9:53 AM EDT documented as of this encounter Care Teams Griddle Attendant Relationship Specialty Start Date End Date Name, MD Henry [address] [place] [phone] PCP - General Family Medicine 08/19/15 Finn Galindo Mental Health ClinicianSimulation Tech 08/06/23 Mari Carrion Chargemaster SpecialistSimulation Tech 12/03/23 [id number] 01/18/24 documented as of this encounter
--- OUTSIDE RECORDS SUMMARY | 2025-04-12 14:19 | XMS_ITS | Data Portability ---
Author Organization [facility], Main Office Address [address] [facility], [address] [place] [address] Care Team Providers Care Continuum Of Care Manager Name Role Phone ROSEANN VAZQUEZ - 2ND FLOOR OTHER NAME, SAMEER Primary Care Provider Assessment Encounter Date Assessment Date Assessment LastModified by Organization Details LastModified Time 01/02/2024 01/02/2024 Spent 30 reviewing records, seeing pt, consulting with staff and documenting [email or web address] Not available 01/02/2024 20:36:57 01/09/2024 01/09/2024 Spent 30 reviewing records, seeing pt, consulting with staff and documenting [email or web address] Not available 01/09/2024 13:17:39 01/15/2024 01/15/2024 spent [...] Recorded Time Open fracture of left tibia [id number] 9105 Active 2023 Juliet Whittaker NP [address] [facility], [address], [place], [address] , [facility] [employer] 4 14:31:24 Insulin treated type 2 diabetes mellitus 075077619 Active 2023 Juliet Whittaker NP [address] [facility], [address], [place], [address], [facility] [employer] [facility] 4 14:31:36 Smoker 87373917 Active 2023 Juliet Whittaker NP [address] [facility], [address], [place], [address], [facility] [employer] [facility] 4 14:31:04 Hypertensiv e disorder 67844556 Active 2023 Juliet Whittaker NP [address], [place], [address], [facility] [employer] [facility] 4 14:31:42 Hyperlipide jessica 00516246 Active 2023 Juliet Whittaker NP [address], [place], [address], [facility] [employer] [facility] 4 14:31:08 Asthma 224545263 Active 2023 Juliet Whittaker NP [address] [facility], [address], [place], [address], [facility] [employer] [facility] 4 14:31:29 Gastroesoph ageal reflux disease without esophagitis 535357242 Active 2023 Juliet Whittaker NP [address] [facility], [address], [place], [address], [facility] [employer] [facility] 4 14:30:48 Depressive disorder 65056054 Active 2023 Juliet Whittaker NP [address] [facility], [address], [place], [address], [facility] [employer] [facility] 4 14:30:37 Migraine 18924619 Active 2023 Juliet Whittaker NP [address], [place], [address], [facility] [employer] [facility] 4 14:30:45 Chronic pain 15190318 Active 2023 Juliet Whittaker NP [address], [place], [address], [facility] [employer] [facility] 4 14:30:20 Delirium 2923596 Active 2023 Juliet Whittaker NP [address], [place], [address], [facility] [employer] [facility] 4 14:30:17 Anemia 486420448 Active 2023 Juliet Whittaker NP [address] [facility], [facility] [address], [place], [address], [facility] [employer] [facility] 4 14:30:42 Chronic constipatio n 971312012 Active 2023 Juliet Whittaker NP [address] [facility], [facility] [address], [place], [address], [facility] [employer] [facility] 4 14:30:09 Itching 055741337 Active 2023 Shantelle Henderson MD [address] [place] [address], [place], [address], [facility] [employer] [facility] 4 20:36:29 Problem Notes None recorded. Medical Equipment None Reported. Allergies Allergen ID Allergen Name Allergen Category Reaction Reaction Severity Criticality Documentation Date Start Date Code Code System Note Provider Name and Address Organization Details Recorded Time 46613 ibuprofen medicatio n Not available Not available Not available 11/13/2023 5640 RxNorm SPIKE CARRILLO NP [address] [facility] [address] [facility] [address], [place], [address], [facility] [employer] [facility] 4 15:12:37 43974 iodine medicatio n Not available Not available Not available 11/13/2023 5933 RxNorm SPIKE CARRILLO NP [address] [facility] [address] [facility] [address], [place], [address], [facility] [employer] [facility] 4 15:12:44 Medications Name Sig Start Date [...] lable Vitals Date Recorded Body height Systolic And Diastolic Provider Name and Address Organization Details Last Updated DateTime 12/21/2023 154.94 cm 130/77 mm[Hg] Ethan Lepe MD [address] [facility], [facility] [address], [place], [address], [employer] 12/21/2023 16:38:09 Date Recorded Body height Heart rate Respiratory rate Body temperature Oxygen saturation Systolic And Diastolic Provider Name and Address Organization Details Last Updated DateTime 4 154.94 cm 74 /min 18 /min 98 [degF] 97 % 132/70 mm[Hg] SPIKE CARRILLO NP [address] [facility] [address], [place], [address], [employer] 4 12:03:14 Date Recorded Body height Body mass index (BMI) Body weight Heart rate Respiratory rate Body temperature Oxygen saturation Systolic And Diastolic Provider Name and Address Organization Details Last Updated DateTime 4 154.94 cm 35.7 kg/m2 42299.9 6 g 70 /min 18 /min 98 [degF] 97 % 128/60 mm[Hg] Shantelle Henderson MD [address] [facility], [facility] [address], [place], [address], [employer] [facility] 4 17:41:59 Date Recorded Body height Heart rate Respiratory rate Body temperature Oxygen saturation Systolic And Diastolic Provider Name and Address Organization Details Last Updated DateTime 4 154.94 cm 88 /min 18 /min 97.3 [degF] 97 % 150/83 mm[Hg] SPIKE CARRILLO NP [address] [facility] [address], [place], [address], [employer] [facility] 4 13:17:27 Date Recorded Body height Heart rate Respiratory rate Body temperature Oxygen saturation Provider Name and Address Organization Details Last Updated DateTime 4 154.94 cm 74 /min 18 /min 97.5 [degF] 97 % Juliet Whittaker NP [address], [place], [address], [facility] [employer] [facility] 11:04:12 Social History Question Answer Notes LastModified by Organizat ion Details LastModified Time Tobacco Smoking Status Current Every Day Smoker SPIKE CARRILLO NP [address], [place], [address], [facility] [employer] [facility] 11/13/2023 15:19:45 Do You Have An Advance Directive? Yes Information not available 11/19/2023 What Is Your Code Status? DNR/DNI No Dialysis [email or web address] Information not available 11/13/2023 Where Do You Live? Apartment Alone Information not available 11/19/2023 Legal Guardian? No Informati on not available 11/19/2023 Do You Have A Medical Power Of Rn Dialysis? Yes Has HCP Not Invoked Information not available 11/19/2023 What Was The Date Of Your Most Recent Tobacco Screening? 11/19/2023 Information not available 11/19/2023 Do You Have An Out Of Hospital DNR? Yes [email or web address] Information not available 11/13/2023 What Is Your Relationship Status? Lives Locally And Is Supportive. (not Father Of Her Kids) Information not available 11/19/2023 How Much Tobacco Do You Smoke? 1 PPD Information not available 11/13/2023 Has Tobacco Cessation Counseling Been Provided? Yes She Says She Has Been Smoking 1 Cig/d Since Here And Will Try To Keep To That. Information not available 11/19/2023 On What Date Was Tobacco Cessation Counseling Provided? 11/19/2023 Information not available 11/19/2023 How Many Years Have You Smoked Tobacco? 48 [email or web address] Information not available 11/13/2023 Sex: Unknown Functional Status Question Answer Note LastModified by Organizat ion Details LastModified Time Do you use any illicit or recreational drugs? No [email or web address] Information not available 11/13/2023 Do you or have you ever used any other forms of tobacco or nicotine? No [email or web address] Information not available 11/13/2023 What is your level of alcohol consumption? None [email or web address] Information not available 11/13/2023 Mental Status None recorded. Family History Nothing Reported Notes:n/c Medical History No medical history recorded. Gynecological HistoryNo gynecological history recorded. Obstetrics History GPAL:G 0 P 0 0 0 0 Immunizations Vaccine Type Date Status Note Provider Nam e and Address Organization Details Recorded Time Hep B, unspecified formulation 5 completed Marietta Zachariah [facility] 11/20/2023 14:12:27 Hep B, unspecified formulation 6 completed [facility]23 14:12:36 Hep B, unspecified formulation 6 completed Marietta Zachariah [facility] 11/20/2023 14:12:44 Hep B, unspecified formulation 3 completed Marietta Soni [facility] 11/20/2023 14:12:52 Hep B, unspecified formulation 3 completed Marietta Zachariah [facility] 11/20/2023 14:13:01 Hep B, unspecified formulation 9 completed Marietta Zachariah [facility] 11/20/2023 14:13:12 Tdap 9 completed Marietta Zachariah [facility] 11/20/2023 14:13:29 Td(adult) unspecified formulation 7 completed [facility] 11/20/2023 14:13:42 Td(adult) unspecified formulation 0 completed Marietta Zachariah [facility] 11/20/2023 14:13:50 Pneumococcal conjugate PCV20, polysaccharide [id number] conjugate, adjuvant, PF 4 completed Marietta Soni [facility] 11/20/2023 14:21:19 pneumococcal polysaccharide PPV23 5 completed Mariettaconrad Soni [facility] 11/20/2023 14:21:52 influenza, unspecified formulation 3 completed Marietta Soni [facility] 11/20/2023 14:22:14 influenza, unspecified formulation 3 completed Marietta Soni [facility] 11/20/2023 14:22:25 Hep A, unspecified formulation 5 completed [facility]ettaconrad Soni [facility] 11/20/2023 14:22:56 Hep A, unspecified formulation 6 completed Marietta [facility] 11/20/2023 14:23:07 SARS-COV-2 (COVID-19) vaccine, UNSPECIFIED 1 completed Marietta [facility] 11/20/2023 14:23:28 SARS-COV-2 (COVID-19) vaccine, UNSPECIFIED 1 completed Marietta [facility] 11/20/2023 14:23:41 SARS-COV-2 (COVID-19) vaccine, UNSPECIFIED 1 completed [place]etta [facility] 11/20/2023 14:23:54 SARS-COV-2 (COVID-19) vaccine, UNSPECIFIED 3 completed Marietta [facility] 11/20/2023 14:24:04 SARS-COV-2 (COVID-19) vaccine, UNSPECIFIED 3 completed [facility] 11/20/2023 14:24:14 Past Encounters Encounter ID Performer Location Encounter Start Date Encounter Closed Date Diagnosis/Indication Diagnosis SNOMED-CT Code Diagnosis ICD10 Code Diagnosis IMO Codes Diagnosis Note [id number] SPIKE CARRILLO NP [address] [address] 11/13/2023 14:55:15 11/21/2023 12:53:23 Open fracture of left tibia [id number] 2358998 S82.292B S/P ORIF at [facility] by Dr. Escobar. procedure well.Soft cast in [...] labs, CSM, painUpdate Ortho with concerns Delirium 6435707 F09 Problemati c in hosp.Impro rajiv with [...] calm her downMonito r closely Chronic pain 83162401 G8 9.29 Increasing oxy as above - 5 or 10 mg q4 hr prn(FYI uses percocet 7.5/325 tid prn at home)William nue other home meds:Dulox etine 60 mg bidLyrica 100 mg tidTizanid ine 4 mg q8 hr prnMonitor use and effect. Asthma 781278970 J45.90 9 Currently on:albuter ol MDI prnzyrtec 10 mg qdFlonase nasal spray qdBreo Ellipta 1 inh qdIncruse Ellipta 1 inh qdMonitor resp. sx. Insulin tr eated type 2 diabetes mellitus 620561074 Z79.4 Continue:C arb control dietLevemi r 30 units sq qdMetformi n 500 mg bidAdd lispro SSI tid Hypertensive disorder 38 491408 I10 Continue losartan 50 mg qdMonitor VS Hyperlipidemia 69480398 E78.5 Continue atorvastat in 20 mg qd Depressive disorder 3548 9007 F32.A Continue:W ellbutrin XL 150 mg qdDuloxeti ne 60 mg bidTrazodo ne 100 mg q HS Currently agitated, adding ativan prn x 14 d as above Gastroesop hageal reflux disease without esophagitis 794037447 K21.9 Continue:p epcid 20 mg q HSpantopra zole 40 mg bidMonitor GI sx. Anemia 910835653 D64.9 Continue Fe Gluc 324 mg qdMonitor CBC, S/S active bleed Migraine 62037841 G43.90 9 Continue sumatripta n 100 mg qd prn [id number] SHANNON CASTELLANO [address] [address] [place] [address] 11/15/2023 11:34:00 11/21/2023 13:27:05 Open fracture of left tibia [id number] 5551026 S82.292B S/P ORIF at [facility] by Dr. Escobar. procedure well.Soft cast in [...] CSM, painUpdate Ortho with concerns Chronic pain 61491169 G8 9.29 Increasing oxy as above - 5 or 10 mg q4 hr prn(FYI uses percocet 7.5/325 tid prn at home)William nue other home meds:Dulox etine 60 mg bidLyrica 100 mg tidTizanid ine 4 mg q8 hr prnMonitor use and effect. Asthma 804113606 J45.90 9 Currently on:albuter ol MDI prnzyrtec 10 mg qdFlonase nasal spray qdBreo Ellipta 1 inh qdIncruse Ellipta 1 inh qdMonitor resp. sx. Insulin tr eated type 2 diabetes mellitus 185702788 Z79.4 Continue:C arb control dietLevemi r 30 units sq qdMetformi n 500 mg bidAdd lispro SSI tid Hypertensive disorder 38 830303 I10 Continue losartan 50 mg qdMonitor VS Hyperlipidemia 53261240 E78.5 Continue atorvastat in 20 mg qd Depressive disorder 2582 9007 F32.A Continue:W ellbutrin XL 150 mg qdDuloxeti ne 60 mg bidTrazodo ne 100 mg q HSmood is good today, she is pleasant Gastroesop hageal reflux disease without esophagitis 559462391 K21.9 Continue:p epcid 20 mg q HSpantopra zole 40 mg bidMonitor GI sx. [id number] Juliet Whittaker NP [address] [address] 11/18/2023 15:52:50 11/21/2023 14:49:22 Open fracture of left tibia 5298690891 1005138 S82.292B S/P ORIF at [facility] by Dr. Meadows with Soft cast in [...] to assess readiness and services Chronic pain 50902350 G8 9.29 oxy as above - 5 or 10 mg q4 hr prn, recently increased( FYI uses percocet 7.5/325 tid prn at home)William nue other home meds:Dulox etine 60 mg bidLyrica 100 mg tidTizanid ine 4 mg q8 hr prnMonitor use and effect. Asthma 526256555 J45.90 9 Currently on:albuter ol MDI prnzyrtec 10 mg qdFlonase nasal spray qdBreo Ellipta 1 inh qdIncruse Ellipta 1 inh qdMonitor resp. sx. Insulin tr eated type 2 diabetes mellitus 351960530 Z79.4 Continue:C arb control dietLevemi r 30 units sq qdMetformi n 500 mg bidAdd lispro SSI tid Hypertensive disorder 38 521688 I10 Continuelo sartan 50 mg qdMonitor VS Depressive disorder 9167 9007 F32.A very upset todayConti nue:Wellbu marisa XL 150 mg qdDuloxeti ne 60 mg bidTrazodo ne 100 mg q HSmonitor mood Gastroesop hageal reflux disease without esophagitis 990222102 K21.9 Continue:p epcid 20 mg q HSpantopra zole 40 mg bidMonitor GI sx. Smoker 92604479 F17.200 pt refuses nicotine patch11/17 startnicor ette gum 2 mg po q 1-2 hoursmonit or and encourage quitting Acute constipation 11770 9006 K59.00 11/17 states no bm in a weekdc Miralax bid for bowelssenn a s 1 tab po dailymom 60 cc po x 1 todaymonit or [id number] Shantelle Henderson MD [address] [address] [place] [address] 11/19/2023 16:09:47 11/21/2023 15:41:04 Open fracture of left tibia 6104511102 2493905 S82.292B Recovering from ORIF for open fx [...] 11/24 at 10 AM as planned. Smoker 05946684 F17.200 Doing well with 1 cig/dayCon tinue nicorette gum 2 mg po q 1-2 hours when needed.Con tinue to encourage cessation. Chronic pain 97186041 G8 9.29 From neuropathy and back pain.William nue meds as above and duloxetine 60 mg BID, Lyrica 100 mg TID and tizanidine 4 mg q 8 hrs prnMonitor use and effect. Hypertensive disorder 38 104032 I10 Only 2 BPs checked since here.Will order daily.Cont inue losartan 50 mg qdMonitor BP and labs. Depressive disorder 6605 9007 F33.8 Mood good todayConti nue Wellbutrin XL 150 mg qd, duloxetine 60 mg BID and trazodone 100 mg qhs.Also started on lorazepam 0.5 mg q 6 hrs prn for agitation. Monitor mood.Consu lt psych prn Gastroesop hageal reflux disease without esophagitis 572791623 K21.9 No current sxs.Contin ue famotidine 20 mg qd and pantoprazo le 40 mg qd. (written as BID on d/c summary, but qd in PCC, will leave for now and monitor sxs).Monit or GI sx. Chronic constipation 236 116553 K59.09 She tells me this is a chronic problem and in [place] gave her something sweet that worked well. Figured out it was lactulose. We discuss that that is something we usually use later on and try gentler stuff first.Will increase senna to 2 tabs qhs and continue prn MOM.Monito r bowel function. Chronic ob structive pulmonary disease 01452978 J44.89 More likely COPD than asthma, although may be crossover syndrome.N o current sxs.Contin ue Breo ellipta 200/25 mcg qd, Incruse ellipta 62.5 mcg qd, cetirizine 10 mg qd, fluticason e nasal spray 2 sprays in each nostril qd, and albuterol MDI 2 puffs q 6 hrs prn.Monito r resp. 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 Anemia 452752751 D64.9 Acute on chronic.Co ntinue FeSO4 325 mg qd.Monitor labs. Migraine 49027462 G43.80 9 Had a migraine inpt, none since here.William nue sumatripta n 100 mg qd prn.Also on topiramate 50 mg BID and riboflavin 400 mg qd per d/c med list, but not in PCC, added.Amina tor sxs. [id number] Juliet Whittaker NP [facility] [address] [place] [address] 11/22/2023 08:21:02 2023 15:10:12 Open fracture of left tibia 0099371079 0073722 S82.292B Recovering from ORIF for open fx [...] 10 AM as planned. Chronic constipation 236 443082 K59.09 chronic problemrep orts having bowel movementsc ontdocusat e 100 mg po bidsenna-s 2 tabs qhs and continue prn MOM.Monito r bowel function. Smoker 32099439 F17.200 Doing well with 1 cig/dayCon tnicorette gum 2 mg po q 1-2 hours prnencoura ge cessation. Chronic pain 21799992 G8 9.29 From neuropathy and back pain.Contm eds as above and duloxetine 60 mg BIDLyrica 100 mg TIDtizanid ine 4 mg q 8 hrs prnMonitor use and effect.see ms she has refused a few doses of lyrica but denies this Chronic ob structive pulmonary disease 18645638 J44.89 stableNo current sxs.Contin ueBreo ellipta 200/25 mcg qd, Incruse ellipta 62.5 mcg qd, cetirizine 10 mg qd, fluticason e nasal spray 2 sprays in each nostril qd, and albuterol MDI 2 puffs q 6 hrs prn.Monito r resp. 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 (written as BID on d/c summary, but qd in PCC, will leave for now and monitor sxs).Monit or GI sx. Anemia 347072189 D64.9 Acute on chronic.Co ntinueFeSO 4 325 mg qd.Monitor labs. Dysuria 21953797 R30.0 pt had kenny removed on 11/19, no bladder scan available but urinating good amounts per pt and no distention has scant bleeding per pt and has some11/21 urinalysis with c & s [id number] Juliet Whittaker NP [facility] [address] [address] 11/25/2023 14:11:11 2023 15:32:35 Open fracture of left tibia 0362728294 6643702 S82.292B Recovering from ORIF for open fx [...] out 2-3x /day for romMay PWB in ot onlyShe may go home when safe with wheelchair /walkerfu in 6 weekscanno t read all of consult rec and request progress note. F/U with ortho in 6 weeks Anemia 017868166 D64.9 Acute on chronic.Co ntinueFeSO 4 325 mg qd.Monitor labs. Smoker 87531208 F17.200 Doing well with 1 cig/day now request to quit totally and would like patch 11/24 dc nicorette gum 2 mg po q 1-2 hours prn11/24 start nicotine patch 14 transderma l q 24 hoursencou rage cessation. Chronic pain 40398495 G8 9.29 From neuropathy and back pain.Contm eds as aboveanddu loxetine 60 mg BIDLyrica 100 mg TIDtizanid ine 4 mg q 8 hrs prnMonitor use and effect.see ms she has refused a few doses of lyrica but denies this [id number] Juliet Whittaker NP [address] [address] 11/26/2023 12:25:38 2023 16:07:03 Open fracture of left tibia 5629634463 7175123 S82.292B Recovering from ORIF for open fx [...] F/U with ortho in 6 weeks Anemia 873614853 D64.9 stableAcut e on chronic.Co ntinueFeSO 4 325 mg qd.Monitor labs. Smoker 28164485 F17.200 Doing well with 1 cig/day now request to quit totally and would like patch 11/24 dc nicorette gum 2 mg po q 1-2 hours prn11/24 start nicotine patch 14 transderma l q 24 hours11/25 seems happy with patch todayencou rage cessation. Chronic pain 61526101 G8 9.29 From neuropathy and back pain.Contm eds as aboveanddu loxetine 60 mg BIDLyrica 100 mg TIDtizanid ine 4 mg q 8 hrs prnMonitor use and effect.see ms she has refused a few doses of lyrica but denies this Type 2 kiarra betes mellitus 76225970 E11.42 E11.21 BS improving with increased dosingWith neuropathy and nephropath y.11/21 increase Levemir 30 units sq qd to 34 units qd, contmetfor min 500 mg BID and SSI.Pain meds as above for neuropathy .Sugars have frequently 99-270s hereNo recent HgA1Cs found in any hospital system, most recent 2020.monit or for adjustment s Depressive disorder 8597 2687 F33.8 Mood good todayConti nueWellbut rin XL 150 mg qd, duloxetine 60 mg BID and trazodone 100 mg qhs.11/25 dc for nonuse--lo razepam 0.5 mg q 6 hrs prn for agitation until 11/26 as rehab has been challengin g for her.Monito r mood.Consu lt psych prn Gastroesop hageal reflux disease without esophagitis 141528671 K21.9 No current sxs.Contin uefamotidi ne 20 mg qdpantopra zole 40 mg qd. (written as BID on d/c summary, but qd in PCC, will leave for now and monitor sxs).Monit or GI sx. [id number] SPIKE CARRILLO NP [address] [place] [address] 12/03/2023 10:34:04 12/04/2023 20:41:13 Open fracture of left tibia 5360900232 1101044 S82.292B Recovering from ORIF for open fx [...] due to open woundMonit or Depressive disorder 8888 9007 F33.8 Mood good today, no agitation or behaviors. ContinueWe llbutrin XL 150 mg qd, duloxetine 60 mg BID and trazodone 100 mg qhs.11/25 dc for nonuse--lo razepam 0.5 mg q 6 hrs prn for agitation until 11/26 as rehab has been challengin g for her.Monito r mood.Consu lt psych prn Anemia 746281525 D64.9 stableAcut e on chronic.Co ntinueFeSO 4 325 mg qd.Monitor labs. Smoker 78224945 F17.200 Waxes and wanes re: smoking.Cu rrently back on the nicoderm patch.Enco urage smoking cessation Chronic pain 74453986 G8 9.29 From neuropathy and back pain.Contm eds as aboveanddu loxetine 60 mg BIDLyrica 100 mg TIDtizanid ine 4 mg q 8 hrs prnMonitor use and effect. Type 2 kiarra rachel mellitus 12173401 E11.42 E11.21 BS controlled , most readings 100s, occ. 200s.With neuropathy and nephropath y.On 11/21, increased Levemir from 30 units to 34 units qd, continueCo ntinue metformin 500 mg BID and SSI.Pain meds as above for neuropathy .Monitor Gastroesop hageal reflux disease without esophagitis 700086661 K21.9 No current sxs.Contin uefamotidi ne 20 mg qdpantopra zole 40 mg qd. (written as BID on d/c summary, but qd in PCC, will leave for now and monitor sxs).Monit or GI sx. [id number] Juliet Whittaker NP [address] [address] 12/11/2023 08:34:56 12/13/2023 13:43:14 Open fracture of left tibia 5302425441 7629753 S82.292B Recovering from ORIF for open fx of left tib-fib with NWB to LLE repaired on 11/10/[address] Meadows at [facility] 11/29 S/P recent hosp. due to increased [...] or for s/s of infection Depressive disorder 6813 3023 F33.8 Mood good today, no agitation or behaviors. ContinueWe llbutrin XL 150 mg qdduloxeti ne 60 mg BIDtrazodo ne 100 mg qhs.Monito r mood.Consu lt psych prn Anemia 690039900 D64.9 stableAcut e on chronic.Co ntFeSO4 325 mg qd.Monitor labs weekly Smoker 55343506 F17.200 Waxes and wanes re: smoking.Cu rrently back on the nicoderm patchwill leave patch on JUL as she continues to change her mind3-10 minutes spent on smoking cessation counseling Encourage smoking cessation Chronic pain 90157279 G8 9.29 From neuropathy and back pain.Conts ee meds aboveand contduloxe richie 60 mg BIDLyrica 100 mg TIDtizanid ine 4 mg q 8 hrs prnMonitor use and effect. Type 2 kiarra betes mellitus 53364992 E11.42 E11.21 BS controlled , most readings 100s, occ. 200s.With neuropathy and nephropath y.On 11/21, increased Levemir from 30 units to 34 units qd, with improved BSContinue metformin 500 mg BID and SSI.Pain meds as above for neuropathy .Monitor Gastroesop hageal reflux disease without esophagitis 233935299 K21.9 No current sxs.Contfa motidine 20 mg qdpantopra zole 40 mg qdMonitor GI sx. Chronic constipation 236 332269 K59.09 chronic problemrep orts having bowel movementsc ontdocusat e 100 mg po bidsenna-s 2 tabs qhs and continue prn MOM.Monito r bowel function. Chronic ob structive pulmonary disease 60149594 J44.89 stableNo current sxs.Contin ueBreo ellipta 200/25 mcg qd, Incruse ellipta 62.5 mcg qd, cetirizine 10 mg qd, fluticason e nasal spray 2 sprays in each nostril qd, and albuterol MDI 2 puffs q 6 hrs prn.Monito r resp. status Hypertensive disorder 38 124724 I10 slightly elevated but improvingw ill monitor as likely slightly elevated prior with pain and prior to medsContin uelosartan 50 mg qdMonitor BP and labs. [id number] Juliet Whittaker NP [address] [address] 12/18/2023 09:58:36 12/24/2023 14:47:22 Open fracture of left tibia [id number] 7380647 S82.292B Recovering from ORIF for open fx of left tib-fib with NWB to LLE repaired on 11/10/[address] Meadows at [facility] of note: 11/29 S/P recent hosp. due [...] qhs.Monito r mood.Consu lt psych prn Anemia 275744525 D64.9 stableAcut e on chronic.Co ntFeSO4 325 mg qd.Monitor labs weekly Smoker 99264778 F17.200 Waxes and wanes re: smoking.Cu rrently back on the nicoderm patchwill leave patch on JUL as she continues to change her mind3-10 minutes spent on smoking cessation counseling Encourage smoking cessation Chronic pain 40051342 G8 9.29 From neuropathy and back pain.Conts ee meds aboveand contduloxe richie 60 mg BIDLyrica 100 mg TIDtizanid ine 4 mg q 8 hrs prnMonitor use and effect. Type 2 kiarra betes mellitus 29095400 E11.42 E11.21 BS controlled , most readings 100s, occ. 200s.With neuropathy and nephropath y.On 11/21, increased Levemir from 30 units to 34 units qd, with improved BSContinue metformin 500 mg BID and SSI.Pain meds as above for neuropathy .Monitor Gastroesop hageal reflux disease without esophagitis 828233378 K21.9 No current sxs.Contfa motidine 20 mg qdpantopra zole 40 mg qdMonitor GI sx. Chronic constipation 236 654210 K59.09 chronic problemrep orts having bowel movementsc ontdocusat e 100 mg po bidsenna-s 2 tabs qhs and continue prn MOM.Monito r bowel function. Chronic ob structive pulmonary disease 10580296 J44.89 stableNo current sxs.Contin ueBreo ellipta 200/25 mcg qd, Incruse ellipta 62.5 mcg qd, cetirizine 10 mg qd, fluticason e nasal spray 2 sprays in each nostril qd, and albuterol MDI 2 puffs q 6 hrs prn.Monito r resp. status Hypertensive disorder 38 639726 I10 slightly elevated but improvingw ill monitor as likely slightly elevated prior with pain and prior to medsContin uelosartan 50 mg qdMonitor BP and labs. [id number] Ethan Lepe MD [address] [address] 12/21/2023 16:37:35 12/24/2023 15:57:18 Cellulitis of left lower limb [id number] 6038847 L03.116 concern for infection with altered mental statusstat CBC with diff, blood cultures x 2, bmp, UAafter labs drawn startkefle x 500 mg qid x 10 daysprobio tic x 2 weeksto ED for decompensa tion Altered mental status 41 4883191 G93.41 see above [id number] SPIKE CARRILLO NP [address] [address] 12/31/2023 11:32:41 01/03/2024 15:58:35 Metabolic encephalopathy 46595796 G93.41 Altered MS - treated for infection and concern of serotonin syndrome.S till with altered MS upon return.See n by Psych at [facility] - meds adjusted - currently off cymbalta and wellbutrin and trazodone. Pregabalin and topamax continued. Recommend outpt. psych follow up re: encephalop athy and ? restart of cymbalta and wellbutrin .Will refer to Psych provider here, continue meds, continue to monitor behaviors and MS. Cellulitis of left lower limb [id number] 6263031 L03.116 Initially treated with IV Vanco, ceftriaxon e, and ampicillin .Seen by ID, abx. changed to cefepime and doxycyclin e, completed 10 days of tx. with improvemen t in cellulitis .Continue to monitor LLE, VS, and labs.CBC, BMP x 1 in am, then q mond. x 2 Insulin tr eated type 2 diabetes mellitus 294861882 Z79.4 Levemir stopped in hosp., BS stayed mostly euglycemic Upon discharge, recommende d metformin 500 mg qd, lispro SSIContinu e Carb control dietMonito r BS and need to adjust meds. Open fract ure of left tibia 6307014825 4676086 S82.292B Recovering from ORIF for open fx [...] fx)Follow up with Ortho as sched. Delirium 6163510 F09 Problemati c during first hosp.Impro rajiv with pain mgmt, fracture repair, and tx. of urinary retention. Hosp. meds reviewed, appears ativan used in hosp. during agitated event. Continues with behaviors and agitation; see above POC Depressive disorder 3318 6393 F33.8 See above, meds adjusted in hosp. [...] prn Gastroesop hageal reflux disease without esophagitis 849604901 K21.9 No current sxs.Contin uefamotidi ne 20 mg qdpantopra zole 40 mg qd. (written as BID on d/c summary, but qd in PCC, will leave for now and monitor sxs).Monit or GI sx. Hypertensive disorder 38 651584 I10 Continue losartan 50 mg qdMonitor VS Hyperlipidemia 05862186 E78.5 Continue atorvastat in 20 mg qd Migraine 40577923 G43.80 9 Continue sumatripta n 100 mg qd prn Chronic pain 06092994 G8 9.29 From neuropathy and back pain.dulox etine 60 mg BID stopped in hosp. due to encephalop athy.Remai ns on:Lyrica 100 mg TIDAPAP prntizanid ine 4 mg q 8 hrs prnMonitor use and effect. Chronic constipation 236 625301 K59.09 continue senna s 2 q HS and colace 100 mg bidadjust prn Asthma 036402536 J45.90 9 Currently on:albuter ol MDI prnzyrtec 10 mg qdFlonase nasal spray qdBreo Ellipta 1 inh qdIncruse Ellipta 1 inh qdMonitor resp. sx. Anemia 914583893 D64.9 stableAcut e on chronic.Co ntinueFeSO 4 325 mg qd.Monitor labs. [id number] Shantelle Henderson MD [address] [address] 01/02/2024 17:02:34 01/06/2024 10:29:53 Metabolic encephalopathy 12607623 G93.41 With numerous med changes inpt due to concern about seratonin syndrome.S he continues to be confused at times and with some agitation as detailed in rehab notes.Cont inue topiramate 50 mg BID.Will likely need some of other meds restarted also, but will await psych consult.Mo nitor mood and behaviors. Cellulitis of left lower limb 9653772551 5915286 L03.116 Completed tx inpt.Monit or for recurrence . Insulin tr eated type 2 diabetes mellitus 686043807 E11.42 With neuropathy .Levemir stopped in hosp.BS have been <200 since return.Con tinue metformin 500 mg qd and SSIContinu e Lyrica 100 mg TID and topiramate 50 mg BID for neuropathy .Continue Carb control dietMonito r fingerstic ks TID and restart Levemir if needed. Open fract ure of left tibia 3324061918 4944878 S82.292B Recovering from ORIF for open fx of left tib-fib continuing with NWB to EMay be able to PWB per 11/24 note, [...] above. Gastroesop hageal reflux disease without esophagitis 674956188 K21.9 No current sxs.Contin ue famotidine 20 mg qd and pantoprazo le 40 mg qd.Monitor GI sx. Hypertensive disorder 38 566061 I10 Remains in good control on losartan 50 mg qdMonitor BP and labs. Hyperlipidemia 80166845 E78.49 Continue atorvastat in 20 mg qdMonitor labs yearly. Migraine 18341662 G43.80 9 Continue sumatripta n 100 mg qd prn.Also on topiramate 50 mg BID and riboflavin 400 mg qdMonitor sxs Chronic pain 82670802 G8 9.29 As above and tizanidine 4 mg q 8 hrs prnMonitor sxs Chronic constipation 236 319366 K59.09 Continue bowel meds as ordered.Mo nitor bowel function. Anemia 283961335 D64.89 StableCont inue FeSO4 325 mg qd.Monitor labs. Chronic ob structive pulmonary disease 80990530 J44.89 No current sxs.Contin ue Breo ellipta 200/25 mcg qd, Incruse ellipta 62.5 mcg qd, cetirizine 10 mg qd, fluticason e nasal spray 2 sprays in each nostril qd, and albuterol MDI 2 puffs q 6 hrs prn.Monito r resp. status Itching 251025872 L29.9 Already on cetirizine 10 mg qd, will add diphenhydr amine 25 mg q 4 hrs prn.Monito r for oversedati on or urinary retention. [id number] SPIKE CARRILLO NP [address] [address] 01/09/2024 13:16:26 01/15/2024 11:32:24 Metabolic encephalopathy 06283483 G93.41 With numerous med changes inpt due to concern about seratonin syndrome.S he continues to be confused at times and with some agitation as detailed in rehab notes but overall mood is pleasant and cooperativ e.Continue topiramate 50 mg BID.Will likely need some of other meds restarted also, but will await psych consult.Mo nitor mood and behaviors. Cellulitis of left lower limb 8107058195 4455384 L03.116 Completed tx inpt.Monit or for recurrence . Insulin tr eated type 2 diabetes mellitus 628343876 E11.42 With neuropathy .Levemir stopped in hosp.BS have been <200 since return.Con tinue metformin 500 mg qd and SSIContinu e Lyrica 100 mg TID and topiramate 50 mg BID for neuropathy .Continue Carb control dietMonito r fingerstic ks TID and restart Levemir if needed. Open fract ure of left tibia 6794511999 0745493 S82.292B Recovering from ORIF for open fx of left tib-fib continuing with NWB to LLESeen by Ortho 01/05, now WBAT with walker, and ok to shower with tub bench without boot.Next f/u 10/7Contin ue APAP 650 mg q 4 hrs prn pain Depressive disorder 3548 9007 F33.8 As above.Refe rred to Psych for continued mgmt. Gastroesop hageal reflux disease without esophagitis 932672948 K21.9 No current sxs.Contin ue famotidine 20 mg qd and pantoprazo le 40 mg qd.Monitor GI sx. Hypertensive disorder 38 357038 I10 Remains in good control on losartan 50 mg qdMonitor BP and labs. Hyperlipidemia 00561305 E78.49 Continue atorvastat in 20 mg qdMonitor labs yearly. Migraine 44198075 G43.80 9 Continue sumatripta n 100 mg qd prn.Also on topiramate 50 mg BID and riboflavin 400 mg qdMonitor sxs Chronic pain 92512975 G8 9.29 As above and tizanidine 4 mg q 8 hrs prnMonitor sxs Chronic constipation 236 324701 K59.09 Continue bowel meds as ordered.Mo nitor bowel function. Chronic ob structive pulmonary disease 96561525 J44.89 No current sxs.Contin ue Breo ellipta 200/25 mcg qd, Incruse ellipta 62.5 mcg qd, cetirizine 10 mg qd, fluticason e nasal spray 2 sprays in each nostril qd, and albuterol MDI 2 puffs q 6 hrs prn.Monito r resp. status Anemia 444445267 D64.89 StableCont inue FeSO4 325 mg qd.Monitor labs. Itching 971193300 L29.9 Already on cetirizine 10 mg qd, will add diphenhydr amine 25 mg q 4 hrs prn.Monito r for oversedati on or urinary retention. [id number] [facility] [address] 01/15/2024 11:02:23 01/17/2024 13:48:19 Metabolic encephalopathy 81756574 G93.41 With numerous med changes inpt due [...] wtih pcp Cellulitis of left lower limb 9245671709 8875881 L03.116 Completed tx inpt.and resolvedMo nitor for recurrence outpt with pcp Insulin tr eated type 2 diabetes mellitus 119764100 E11.42 With neuropathy .Levemir stopped in hosp.BS have been <200 since return.Con tinuemetfo rmin 500 mg bidLyrica 100 mg TIDtopiram ate 50 mg BID for neuropathy .Continue Carb control dietMonito r fingerstic ks TID and restart Levemir if needed. Open fract ure of left tibia 3505134591 0704843 S82.292B Recovering from ORIF for open fx [...] mgmt. Gastroesop hageal reflux disease without esophagitis 078482287 K21.9 No current sxs.Contin uefamotidi ne 20 mg qdpantopra zole 40 mg qd.Monitor GI sx. outpt with pcp Hypertensive disorder 38 763806 I10 Remains in good control and labile at timescontl osartan 50 mg qdMonitor BP and labs outpt Hyperlipidemia 09882113 E78.49 Continueat orvastatin 20 mg qdMonitor labs oupt with pcp Migraine 71693751 G43.80 9 Continuesu matriptan 100 mg qd prn.topira mate 50 mg BIDribofla francia 400 mg qdMonitor sxs outpt with pcp Chronic pain 76109119 G8 9.29 As above and tizanidine 4 mg q 8 hrs prnMonitor sxs outpt with pcp Chronic constipation 236 277290 K59.09 Continue bowel meds as ordered.Mo nitor bowel function outpt with pcp Chronic ob structive pulmonary disease 65356336 J44.89 No current sxs.Contin ueBreo ellipta 200/25 mcg qd, Incruse ellipta 62.5 mcg qd, cetirizine 10 mg qd, fluticason e nasal spray 2 sprays in each nostril qd, and albuterol MDI 2 puffs q 6 hrs prn.Monito r resp. status with pcp outpt Anemia 081647512 D64.89 StableCont inue FeSO4 325 mg qd.Monitor labs outpt with pcp Health Concerns Section Related Observation LastModified by Organization Detai ls LastModified Time None Recorded Concern Status LastModified by Organization Details LastModified Time None Recorded Advance Directives Directive Y: Payers Insurance Date Sequence Insurance Name Policy Number Policy Mantilla Covered Member ID Mantilla Member ID Guarantor Name 01/15/2024 1 [place] Louisa Levin [id number] Louisa Levin Notes Date Note Type Note Provider Name [...] site of lower wound Ethan Lepe MD [address] [place] [address], [address], [place], [address], [facility] [employer] 12/21/2023 16:44:18 4 text/html Louisa is seen today for readmission.She is a 63 yo lady, here at [facility] for rehab due to a left tibial fx, s/p ORIF. She was sent to [facility] 12/21/23 due to altered MS.Work up revealed [...] - home meds continued. She returned from [facility] 12/31/23 for continued care and rehab.Upon exam, [...] delirium.MOLST: DNR, DNI SPIKE CARRILLO NP [address] [facility], [address], [place], [address], [facility] [employer] 12/31/2023 12:54:50 4 text/html This is a [...] near future. I see her with a arabic speaking staff member.Tonight she is up in [...] and hx of delirium. Shantelle Henderson MD [address] [facility], [address], [place], [address], [employer] 01/02/2024 20:37:01 4 text/html Louisa is seen [...] home in the near future. Upon exam, Lousia is up in her w/c, self propelling [...] hx of delirium. SPIKE CARRILLO, LANCE [address] [facility], [address], [place], [address], [facility] - [employer] 01/09/2024 13:33:32 4 text/html Louisa is a 62 yo lady admitted on 11/12 to [facility] from [facility] for continued care and rehab after a brief hosp. related to a fall with left tibial fx. Her PMH includes HTN, AODM, COPD, chronic pain, depression, insomnia, GERD, HLD, migraine, smoker, s/p bilateral TKRs, s/p ORIF left tib-fib 11/2023, recurrent fevers of unknown origin, hx of transaminitis, and hx of delirium. She initially presented to [facility] 11/10/23 after falling at home with residual [...] not restarted on d/c. While here at [facility]:She was last seen by Ortho 01/05 [...] approximately 20 tablets. She was seen by psychology physician here and recommends 3 mg po qhs, [...] approx and no s/s of infection. Juliet Whittaker, LANCE [address] [facility], [address], [place], [address], [facility] - [employer] 01/15/2024 11:54:12 OBGyn Episode No OBEpisode recorded.
--- OUTSIDE RECORDS SUMMARY | 2025-04-12 14:19 | XMS_ITS | Encounter Summary ---
Author Organization [employer] Address [address] [facility] 7t [place] [address] Care Team Providers Care Rn Clinical Name Role Phone Name, Henry BARTLETT Primary Care Provider [phone] Reason for Visit * Reason Onset Date Comments Results 10/22/2023 Encounter Details Date Type Department Care Team ([facility] Contact Info) Description 10/22/2023 Telephone [facility] MEDICINE [address] [place], [place] [phone] Name, MD Henry [address] [place], [place] [phone] Results Social History Tobacco Use Types Packs/Day [...] and Urine Date when done: 10/15 Facility: [facility] documented in this encounter Plan of Treatment Upcoming Encounters Date Type Department Care Team (Late st Contact Info) Description 04/14/2025 2:30 PM EST Office Visit [facility] MEDICINE [address] [place] [address] Name, MD Henry [address] [place] [address] 04/30/2025 9:30 AM EST Telemedicine [facility] MEDICINE [address] [place] [address] Suni Rodriguez RN 06/08/2025 9:30 AM EST Office Visit [facility] ADULT DENTAL [address] [place] [address] Clarisse Bar [address] [place] [address] documented as of this encounter Visit Diagnoses Not on filedocumented in this encounter Additional Health Concerns Assessment Noted Time PHQ-9 Depression Total Score: 6 09/14/19 23 9:53 AM EDT documented as of this encounter Care Teams Rn Clinical Relationship Specialty Start Date End Date Name, MD Henry [address] [place] [address] PCP - General Family Medicine 08/19/15 [facility] CarrierHorticultural Manager 08/06/23 Mari Carrion Marketing Services ManagerHorticultural Manager 12/03/23 Chiquita 01/18/24 documented as of this encounter
--- OUTSIDE RECORDS SUMMARY | 2025-04-12 14:19 | XMS_ITS | Encounter Summary ---
Author Organization [employer] Address [address] [facility] 7t [place] [address] Care Team Providers Care Dye House Wheel Operator Name Role Phone Name, Henry BARTLETT Primary Care Provider [phone] Reason for Visit * Reason Onset Date Comments FYI 12/17/2023 Encounter Details Date Type Department Care Team ([facility] st Contact Info) Description 12/17/[address] [facility] MEDICINE [address] [place], [place] [phone] Name, MD Henry [address] [place] [address] FYI Social History Tobacco Use Types Packs/Day [...] pt is being seen at is the [facility] ([address] [place] [address]) Rehab documented in this encounter Plan of Treatment Upcoming Encounters Date Type Department Care Team (Late st Contact Info) Description 04/14/2025 2:30 PM EST Office Visit [address] [address] Name, MD Henry [address] [place] [address] 04/30/2025 9:[address] [facility] MEDICINE [address] [place] [address] Suni Rodriguez RN 06/08/2025 9:30 AM EST Office Visit [facility] ADULT DENTAL [address] [place] [address], [place] [address] Clarisse Bar [address] [place], [place] [phone] documented as of this encounter Visit Diagnoses Not on filedocumented in this encounter Additional Health Concerns Assessment Noted Time PHQ-9 Depression Total Score: 6 09/14/19 23 9:53 AM EDT documented as of this encounter Care Teams Dye House Wheel Operator Relationship Specialty Start Date End Date Name, MD Henry [address] [place] [address] PCP - General Family Medicine 08/19/15 Finn Galindo Media Account ExecutiveTester Operator Helper 08/06/23 Mari Carrion Head BuckerTester Operator Helper 12/03/23 Chiquita 01/18/24 documented as of this encounter
--- OUTSIDE RECORDS SUMMARY | 2025-04-12 14:19 | XMS_ITS | Encounter Summary ---
Author Organization [employer] Address [address] [facility] 7t [place] [address] Care Team Providers Care Plant Packer Name Role Phone Name, Henry BARTLETT Primary Care Provider [phone] Reason for Visit * Reason Onset Date Comments FYI 12/02/2023 Encounter Details Date Type Department Care Team ([facility] Contact Info) Description 12/02/2023 Telephone [facility] MEDICINE [address] [place], [place] [phone] Name, MD Henry [address] [place] [address] FYI Social History Tobacco Use Types Packs/Day [...] Description 04/14/2025 2:30 PM EST Office Visit [facility] MEDICINE [address] [place] [address] Name, MD Henry [address] [place] [address] 04/30/2025 9:30 AM EST Telemedicine [facility] MEDICINE [address] [place] [address] Suni Rodriguez RN 06/08/2025 9:30 AM EST Office Visit [facility] ADULT DENTAL [address] [place] [address] Clarisse Bar [address] [place] [address] documented as of this encounter Visit Diagnoses Not on filedocumented in this encounter Additional Health Concerns Assessment Noted Time PHQ-9 Depression Total Score: 6 09/14/19 23 9:53 AM EDT documented as of this encounter Care Teams Plant Packer Relationship Specialty Start Date End Date Name, MD Henry [address] [place] [address] PCP - General Family Medicine 08/19/15 Finn Galindo Decorating InstructorYoker 08/06/23 Mari Carrion Acid Etch OperatorYoker 12/03/23 Chiquita 01/18/24 documented as of this encounter
--- OUTSIDE RECORDS SUMMARY | 2025-04-12 14:19 | XMS_ITS | Encounter Summary ---
Author Organization [employer] Address [address] [facility] 7t [place] [address] Care Team Providers Care Traffic Agent Name Role Phone NameHenry MD Primary Care Provider [phone] Reason for Visit * Reason Comments Med Refill Encounter Details Date Type Department Care Team ([facility] Contact Info) Description 09/15/2022 Refill [facility] MEDICINE [address] [place] [address] [phone] Henry Bernardo MD [address] [place] [address] [phone] Chronic pain syndrome Social History Tobacco Use [...] Upcoming Encounters Date Type Department Care Team ([facility] Contact Info) Description 04/14/2025 2:30 PM EST Office Visit [facility] MEDICINE [address] [place] [address] [phone] Henry Bernardo MD [address] [facility] [place] [address] 04/30/2025 9:30 AM EST Telemedicine [facility] MEDICINE [address] [place], [place] [phone] Suni Rodriguez RN 06/08/2025 9:30 AM EST Office Visit [facility] ADULT DENTAL [address] [place], [place] [phone] Clarisse Bar [address] [place] [address] documented as of this encounter Visit Diagnoses Diagnosis Chronic pain syndrome documented in this encounter Additional Health Concerns Assessment Noted Time PHQ-9 Depression Total Score: 6 09/14/19 23 9:53 AM EDT documented as of this encounter Care Teams Traffic Agent Relationship Specialty Start Date End Date Name, [place] [address] PCP - General Family Medicine 08/19/15 Finn Galindo Burn Table OperatorShare Dairy Farmer 08/06/23 Mari Carrion Worship LeaderShare Dairy Farmer 12/03/23 Chiquita 01/18/24 documented as of this encounter
--- OUTSIDE RECORDS SUMMARY | 2025-04-12 14:19 | XMS_ITS ---
Author Organization [employer] Address [address] [facility] 7t [place] [address] Care Team Providers Care News Camera Person Name Role Phone Name, Henry BARTLETT Primary Care Provider [phone] LOCAL SUPERINTENDENT Status:Enrolled (Active) Start date:06/14/2022 Enrollment date:06/14/2022 Enrollment reason:Identified using pharmacy data Current support & services provided:Tier 4 (LOCAL SUPERINTENDENT) Case Team Name Relationship Phone Suni Rodriguez RN(Responsible Staff) Registered Nu rse Continued Care and Services Coordination
--- OUTSIDE RECORDS SUMMARY | 2025-04-12 14:19 | XMS_ITS | Encounter Summary ---
Author Organization [employer] Address 75 [facility] 7t [place] [address] Care Team Providers Care Tombstone Carver Name Role Phone Name, Henry BARTLETT Primary Care Provider Reason for Visit * Reason Onset Date Comments Medical Question 09/18/2022 Encounter Details Date Type Department Care Team ([facility] st Contact Info) Description 09/18/2022 Telephone [facility] [address] [place], [place] [phone] Name, MD Henry 230 [place] [address] Medical Question Social History Tobacco Use Types [...] a heart monitor Please contact pt at [phone] [place] Speaker documented in this encounter Plan of Treatment Upcoming Encounters Date Type Department Care Team (Late st Contact Info) Description 04/14/2025 2:30 PM EST Office Visit [facility] [address] [place] [address] Name, MD Henry [address] [place] [address] 04/30/2025 9:30 AM EST Telemedicine [facility] [address] [place] [address] Suni Rodriguez RN 06/08/2025 9:30 AM EST Office Visit [facility] ADULT DENTAL [address] [place] [address] Clarisse Bar [address] [place] [address] documented as of this encounter Visit Diagnoses Not on filedocumented in this encounter Additional Health Concerns Assessment Noted Time PHQ-9 Depression Total Score: 6 09/14/19 23 9:53 AM EDT documented as of this encounter Care Teams Tombstone Carver Relationship Specialty Start Date End Date Name, MD Henry [address] [place] [address] PCP - General Family Medicine 08/19/15 Finn Galindo Carbide Powder ProcessorReceptionist/Telephone Operator 08/06/23 Mari Carrion Land MeasurerReceptionist/Telephone Operator 12/03/23 Chiquita 01/18/24 documented as of this encounter
--- OUTSIDE RECORDS SUMMARY | 2025-04-12 14:19 | XMS_ITS | Encounter Summary ---
Author Organization [employer] Address 75 [facility] 7t [place] [address] Care Team Providers Care Strategic Planner Name Role Phone Name, Henry BARTLETT Primary Care Provider Reason for Visit * Reason Comments Med Refill Encounter Details Date Type Department Care Team ([facility] Contact Info) Description 11/19/[address] [facility] MEDICINE [address] [place] [phone] Name, MD Henry [address] [place] [address] [phone] Chronic pain syndrome Social History Tobacco Use [...] Upcoming Encounters Date Type Department Care Team ([facility] Contact Info) Description 04/14/2025 2:30 PM EST Office Visit [facility] MEDICINE [address] [place] [address] [phone] Name, MD Henry 230 [place] [address] 04/30/2025 9:30 AM EST Telemedicine [facility] MEDICINE [address] [place] [address] Suni Rodriguez RN 06/08/2025 9:30 AM EST Office Visit [facility] ADULT DENTAL [address] [place] [address] Clarises Bar [address] [place] [address] documented as of this encounter Visit Diagnoses Diagnosis Chronic pain syndrome documented in this encounter Additional Health Concerns Assessment Noted Time PHQ-9 Depression Total Score: 6 09/14/19 23 9:53 AM EDT documented as of this encounter Care Teams Strategic Planner Relationship Specialty Start Date End Date Name, MD Henry [address] [place] [phone] PCP - General Family Medicine 08/19/15 Finn Galindo Bartender ServerTile Classifier 08/06/23 Mari Carrion Vp Hr DiversityTile Classifier 12/03/23 Chiquita 01/18/24 documented as of this encounter
--- OUTSIDE RECORDS SUMMARY | 2025-04-12 14:20 | XMS_ITS | Clinical Summary ---
Author Organization [address] [place] [address] [place] [phone] Phone Care Team Providers Care Building Dismantler Name Role Phone Unavailable Primary Care Provider Unavailabl e Allergies Active Allergy Reactions Criticality Noted Date Comments Celecoxib GI intolerance 05/23/2022 Other reaction(s): GI UPSET Iodinated Contrast Media 09/27/2008 Other reaction(s): anaphylactic shock Other Reaction(s): OTHER Throat closure Metformin Hcl 10/01/2011 Abdominal pain Nitrofurantoin Monohyd/M-Cryst 09/04/2012 Pineapple Itching 12/04/2022 Medications clotrimazole (LOTRIMIN) 1 % cream Apply topically 2 (two) times a day. 30 g 3 5 05/06/20 Active Encounters Date Type Department Care Team Description 04/06/2025 10:15 AM EST Consult Orthopedic Surgery - [place] [address] [place] [phone] Tony Vigil, DPM Ingrowing nail (Primary Dx); Dermatophytosis of nail; Diabetic mononeuropathy simplex ([facility]/H[facility] V24, [facility]/HCC V28) from Last 3 Months Immunizations Immunization Administration Dates Next Due Pfizer SARS-CoV-2 COVID-19, mRNA, LNP-S, preservative free 02/28/2021,06/16/2020,05/26/2020 Surgical History Surgery Date Site/Laterality Comments KNEE ARTHROSCOPY PROCEDURE: AL ARTHROSCOPY AID TX SPINE&/FX KNEE W/O FIXJ HYSTERECTOMY PROCEDURE: HISTORICAL HYSTERECTOMY HERNIA REPAIR PROCEDURE: HISTORICAL HERNIA REPAIR/ING CHOLECYSTECTOMY PROCEDURE: HISTORICAL CHOLECYSTECTOMY ESOPHAGOGASTRODUODENOSCOPY 2002? PROCEDURE: AL ESOPHAGOGASTRODUODENOSCOPY TRANSORAL DIAGNOSTIC; COMMENT: h pylori gatritis? COLONOSCOPY 2004 PROCEDURE: AL COLONOSCOPY FLX DX W/COLLJ SPEC WHEN PFRMD; COMMENT: normal? (done for evaluation of rectal bleeding) ESOPHAGOGASTRODUODENOSCOPY 09/20/2009 PROCEDURE: AL EGD TRANSORAL BIOPSY SINGLE/MULTIPLE; COMMENT: Esophagus normal, bilious fluid in the stomach, antral gastritis-biopsy:mild reactive gastropathy (HPylori-), normal SB TOTAL KNEE ARTHROPLASTY PROCEDURE: HISTORICAL TOTAL KNEE REPLACE; COMMENT: both knees (2010 and 2009) SINUS SURGERY 2010 PROCEDURE: AL UNLISTED PROCEDURE ACCESSORY SINUSES; COMMENT: date approximate; [...] Colorectal Cancer Screening: Colonoscopy 1959 Diabetes: Annual Foot Exam 11/27/1969 Diabetes: Annual Retina Eye Exam 11/27/1969 Cervical Cancer Screening: Pap Smear 11/27/1980 RSV Immunization Adult Patients (1 - Risk 50-74 years 1-dose series) 11/27/2009 Zoster Vaccines (1 of 2) 11/27/2009 Hepatitis C Screening 04/15/2022 Osteoporosis Screening (Bone Density Screening) 04/15/2022 Social Influencers of Health Screening 04/15/2022 Diabetes: Annual Urine Albumin-Creatinine Ratio (uACR) 04/19/2022 Breast Cancer Screening 05/31/2023 05/31/2021 Depression Screening 05/13/2024 Falls Risk Assessment 11/27/2024 COVID-19 Vaccine ( season) 2025 07/29/2024, 04/09/2023, 07/09/2022, Additional history exists Influenza Vaccine (#1) 2025 , 03/13/2023, 07/09/2022, Additional history exists Diabetes: Blood Sugar Control Test (HGBA1C) 05/21/2025 11/18/2024, 01/28/2024 Diabetes: Annual GFR (Glomerular Filtration Rate) 02/12/2026 02/12/2025 Hypertension/CHF/CAD Annual BMP Blood Test 02/12/2026 02/12/2025 DTaP,Tdap,and Td Vaccines (4 - Td or Tdap) 06/24/2029 06/24/2019, 09/27/2008, 09/06/2006 Cholesterol Screening (Lipid Panel) 02/12/2030 02/12/2025, 10/16/2023 Hepatitis A Vaccines Completed 04/23/2006, 04/24/20 05 Hepatitis B Vaccines Completed 08/27/2018, 01/22/2013, 06/16/2012, [...] Documents on File Type Date Recorded Patient Sociology Research Assistant Expl anation Health Care Decision (hx) 12/04/2023 AD DONOVAN DIRECTIVE Health Care Decision (hx) 11/11/2023 AD DONOVAN DIRECTIVE Health Care Decision (hx) 11/11/2023 AD DONOVAN DIRECTIVE Health Care Decision (hx) 11/11/2023 AD DONOVAN DIRECTIVE
--- OUTSIDE RECORDS SUMMARY | 2025-04-12 14:20 | XMS_ITS | Encounter Summary ---
Author Organization [employer] Address 75 [facility] 7t [place] [address] Care Team Providers Care Unarmed Security Officer Name Role Phone Name, Henry BARTLETT Primary Care Provider [phone] Reason for Visit * Reason Comments Med Refill Encounter Details Date Type Department Care Team ([facility] st Contact Info) Description 07/09/2024 Refill [facility] MED[facility]INE 230 [place], [place] [phone] Name, MD Henry [address] [place], [place] [phone] Chronic pain syndrome Social History Tobacco Use [...] Description 04/14/2025 2:30 PM EST Office Visit [facility] MEDICINE [address] [place] [phone] Name, MD Henry [address] [place] [address] 04/30/2025 9:30 AM EST Telemedicine [facility] MEDICINE [address] [place] [address] Suni Rodriguez, EDWARD 06/08/2025 9:30 AM EST Office Visit [facility] ADULT DENTAL [address] [place] [address] Clarisse Bar [address] [place] [address] documented as of this encounter Visit Diagnoses Diagnosis Chronic pain syndrome documented in this encounter Additional Health Concerns Assessment Noted Time PHQ-9 Depression Total Score: 6 09/14/19 23 9:53 AM EDT documented as of this encounter Care Teams Unarmed Security Officer Relationship Specialty Start Date End Date Henry Bernardo MD [address] [place] [phone] PCP - General Family Medicine 08/19/15 Finn Galindo Diesel Power MechanicPoultry Breeder 08/06/23 Mari Carrion Cylinder Press OperatorPoultry Breeder 12/03/23 Chiquita 01/18/24 documented as of this encounter
--- OUTSIDE RECORDS SUMMARY | 2025-04-12 14:20 | XMS_ITS | Encounter Summary ---
Author Organization [employer] Address 75 [facility] 7t [place] [address] Care Team Providers Care Turkey Pinner Name Role Phone Name, Henry BARTLETT Primary Care Provider [phone] Reason for Visit * Reason Comments Med Refill Encounter Details Date Type Department Care Team ([facility] st Contact Info) Description 08/05/2024 Refill [facility] CHC MED & PEDS [address] [place], [place] [phone] Name, MD Henry [address] [place] [address] Chronic pain syndrome Social History Tobacco Use [...] 2:30 PM EST Office Visit [facility] MEDICINE [address] [place] [address] Henry Bernardo MD [address] [place] [address] 04/30/2025 9:30 AM EST Telemedicine [facility] MEDICINE [address] [place] [address] Suni Rodriguez, EDWARD 06/08/2025 9:30 AM EST Office Visit [facility] ADULT DENTAL [address] [place] [address] Clarisse Bar [address] [place] [address] documented as of this encounter Visit Diagnoses Diagnosis Chronic pain syndrome documented in this encounter Additional Health Concerns Assessment Noted Time PHQ-9 Depression Total Score: 6 09/14/19 23 9:53 AM EDT documented as of this encounter Care Teams Turkey Pinner Relationship Specialty Start Date End Date Henry Bernardo MD [address] [place] [address] PCP - General Family Medicine 08/19/15 Finn Galindo Trap OperatorSurface Supply Breathing Apparatus 08/06/23 Mari Carrion Long Term Care AdministratorSurface Supply Breathing Apparatus 12/03/23 Chiquita 01/18/24 documented as of this encounter
--- OUTSIDE RECORDS SUMMARY | 2025-04-12 14:20 | XMS_ITS | Encounter Summary ---
Author Organization [employer] Address 75 [facility] 7t [place] [address] Care Team Providers Care Slurry Mixer Name Role Phone Name, Henry BARTLETT Primary Care Provider [phone] Reason for Visit * Reason Comments Med Refill Encounter Details Date Type Department Care Team ([facility] st Contact Info) Description 04/30/[address] [facility] MEDICINE [address] [place], [place] [phone] Yue Olsen, LANCE 230 [place], [place] [phone] COPD exacerbation (CMS/HCC) Social History Tobacco Use [...] Description 04/14/2025 2:30 PM EST Office Visit [facility] MEDICINE [address] [place] [address] NameHenry MD [address] [place] [address] 04/30/2025 9:[address] [facility] MED[facility]INE [address] [place] [address] Suni Rodriguez, EDWARD 06/08/2025 9:30 AM EST Office Visit [facility] ADULT DENTAL [address] [place] [address] Clarisse Bar [address] [place] [address] documented as of this encounter Visit Diagnoses Diagnosis COPD exacerbation (CMS/HCC) (HCC) Obstructive chronic bronchitis with exacerbation documented in this encounter Additional Health Concerns Assessment Noted Time PHQ-9 Depression Total Score: 6 09/14/19 23 9:53 AM EDT documented as of this encounter Care Teams Slurry Mixer Relationship Specialty Start Date End Date Name, MD Henry [address] [place] [address] PCP - General Family Medicine 08/19/15 Finn Galindo Rate Clerk PassengerEdge Finisher 08/06/23 Mari Carrion Wreath And Garland Maker HandEdge Finisher 12/03/23 Chiquita 9/7/24 documented as of this encounter
--- OUTSIDE RECORDS SUMMARY | 2025-04-12 14:20 | XMS_ITS | Encounter Summary ---
Author Organization [employer] Address 75 [facility] 7t [place] [address] Care Team Providers Care Ground Service Equipment Mechanic Name Role Phone Name, Henry BARTLETT Primary Care Provider [phone] Reason for Visit * Reason Comments Med Refill Encounter Details Date Type Department Care Team ([facility] st Contact Info) Description 03/12/2025 Refill [facility] CHC MED & PEDS [address] [place] [address] Yue Olsen, LANCE 230 [place] [address] Chronic pain syndrome Social History Tobacco Use [...] Description 04/14/2025 2:30 PM EST Office Visit [facility] MEDICINE [address] [place] [phone] Henry Bernardo MD 230 [place] [address] 04/30/2025 9:30 AM EST Telemedicine [facility] MED[facility]INE [address] [place] [phone] Suni Rodriguez RN 06/08/2025 9:30 AM EST Office Visit [facility] ADULT DENTAL [address] [place] [address] Clarisse Bar [address] [place] [address] documented as of this encounter Visit Diagnoses Diagnosis Chronic pain syndrome documented in this encounter Additional Health Concerns Assessment Noted Time PHQ-9 Depression Total Score: 24 025 11:00 AM EDT documented as of this encounter Care Teams Ground Service Equipment Mechanic Relationship Specialty Start Date End Date Henry Bernardo MD [address] [place] [phone] PCP - General Family Medicine 08/19/15 Finn Galindo Cook Apprentice PastryPortal Architect 3/26/24 Mari Carrion Rehabilitation NursePortal Architect 12/03/23 Chiquita 01/18/24 documented as of this encounter
--- OUTSIDE RECORDS SUMMARY | 2025-04-12 14:20 | XMS_ITS | Encounter Summary ---
Author Organization [employer] Address 75 [facility] 7t [place] [address] Care Team Providers Care Crown And Bridge Technician Name Role Phone Name, Henry BARTLETT Primary Care Provider [phone] Reason for Visit * Reason Comments Med Refill Encounter Details Date Type Department Care Team ([facility] st Contact Info) Description 04/12/2025 Refill [facility] CHC MED & PEDS [address] [place], [place] [phone] Name, MD Henry [address] [place] [address] Chronic pain syndrome Social History Tobacco Use [...] Description 04/14/2025 2:30 PM EST Office Visit [facility] MEDICINE [address] [place] [address] Name, MD Henry 230 [place] [address] 04/30/2025 9:30 AM EST Telemedicine [facility] MEDICINE [address] [place] [address] Suni Rodriguez RN 06/08/2025 9:30 AM EST Office Visit [facility] ADULT DENTAL [address] [place] [address] Clarisse Bar [address] [place] [address] documented as of this encounter Goals Goal Patient Goal Type Associated Problems Recent Progress Patient-Stated? Author Help patients manage their type 2 diabetes Care Plan Help patients manage their type 2 diabetes Daryn Felix Weekly blood pressure task Care Plan Weekly blood pressure task No Daryn Preston Help patients manage their type 2 diabetes Care Plan Help patients manage their type 2 diabetes No Daryn Preston Patient has chronic kidney disease Care Plan Patient has chronic kidney disease No Daryn Preston Help patients manage their type 2 diabetes Care Plan Help patients manage their type 2 diabetes No Daryn Preston Patient has diabetic neuropathy Care Plan Patient has diabetic neuropathy No Preston, Joeyylee Weekly blood pressure task Care Plan Weekly blood pressure task No Preston, Joeyylee Weekly blood pressure task Care Plan Weekly blood pressure task No Preston, Joeyylee Patient has chronic kidney disease Care Plan Patient has chronic kidney disease No Preston, Joeyylee Patient has chronic kidney disease Care Plan Patient has chronic kidney disease No Preston, Joeyylee Patient has diabetic neuropathy Care Plan Patient has diabetic neuropathy No Preston, Joeyylee Patient has diabetic neuropathy Care Plan Patient has diabetic neuropathy No Preston, Sonylee Weekly blood pressure task Care Plan Weekly blood pressure task No Kidd Rose Weekly blood pressure task Care Plan Weekly blood pressure task No Kidd Rose Weekly blood pressure task Care Plan Weekly blood pressure task No Kidd Rose Patient has chronic kidney disease Care Plan Patient has chronic kidney disease No Kidd Rose Patient has chronic kidney disease Care Plan Patient has chronic kidney disease No Kidd Rose Patient has chronic kidney disease Care Plan Patient has chronic kidney disease No KiddJoseRose Patient has diabetic neuropathy Care Plan Patient has diabetic neuropathy No Kidd Rose Patient has diabetic neuropathy Care Plan Patient has diabetic neuropathy No Kidd Rose Patient has diabetic neuropathy Care Plan Patient has diabetic neuropathy No KiddOllie dennya Weekly blood pressure task Care Plan Weekly [...] Plan Weekly blood pressure task No Suni Rodriguez, EDWARD Weekly blood pressure task Care Plan Weekly blood pressure task No Suni Rodriguez RN Weekly blood pressure task Care Plan Weekly blood pressure task No Suni Rodriguez, EDWARD Patient has chronic kidney disease Care Plan Patient has chronic kidney disease No Suni Rodriguez RN Patient has chronic kidney disease Care Plan Patient has chronic kidney disease Suni Palencia RN Patient has chronic kidney disease Care [...] Plan Patient has chronic kidney disease No iY Talamantes Patient has chronic kidney disease Care [...] Patient has diabetic neuropathy No Yi Talamantes documented as of this encounter Visit Diagnoses Diagnosis Chronic pain syndrome documented in this encounter Additional Health Concerns Active Problems Noted Date [...] neuropathy 04/12/2025 Patient has diabetic neuropathy 04/12/2025 Assessment Noted Time PHQ-9 Depression Total Score: 24 025 11:00 AM EDT documented as of this encounter Care Teams Crown And Bridge Technician Relationship Specialty Start Date End Date Name, MD Henry [address] [place] [phone] PCP - General Family Medicine 08/19/15 Finn Galindo Senior Manager Asset ProtectionExtension Associate 08/06/23 Mari Carrion Frame PolisherExtension Associate 12/03/23 Chiquita 01/18/24 documented as of this encounter
--- OUTSIDE RECORDS SUMMARY | 2025-04-12 14:20 | XMS_ITS | Encounter Summary ---
Author Organization [employer] Address 75 [facility] 7t [place] [address] Care Team Providers Care Agricultural Research Technician Name Role Phone Name, Henry BARTLETT Primary Care Provider Encounter Details Date Type Department Care Team ([facility] st Contact Info) Description 04/12/2025 Telephone [facility] MEDICINE [address] [place], [place] [phone] Name, MD Henry 230 [place], [place] [phone] Social History Tobacco Use Types Packs/Day Years [...] Description 04/14/2025 2:30 PM EST Office Visit [facility] MEDICINE [address] [place] [phone] Name, MD Henry [address] [place] [address] 04/30/2025 9:30 AM EST Telemedicine [facility] [address] [place] [phone] Suni Rodriguez RN 06/08/2025 9:30 AM EST Office Visit [facility] ADULT DENTAL [address] [place] [address] Clarisse Bar [address] [place] [address] documented as of this encounter Goals Goal Patient Goal Type Associated Problems Recent Progress Patient-Stated? Author Help patients manage their type 2 diabetes Care Plan Help patients manage their type 2 diabetes No PrestonDaryn nicole Weekly blood pressure task Care Plan Weekly blood pressure task No Daryn Preston Help patients manage their type 2 diabetes Care Plan Help patients manage their type 2 diabetes No PrestonJoey nicoleylee Patient has chronic kidney disease Care Plan Patient has chronic kidney disease No PrestonJoey nicoleylee Help patients manage their type 2 diabetes Care Plan Help patients manage their type 2 diabetes No PrestonDaryn nicole Patient has diabetic neuropathy Care Plan Patient has diabetic neuropathy No PrestonJoey nicoleylee Weekly blood pressure task Care Plan Weekly blood pressure task No Preston, Joeyylee Weekly blood pressure task Care Plan Weekly blood pressure task No Preston Joeyylee Patient has chronic kidney disease Care [...] Care Plan Patient has diabetic neuropathy No Kidd, Rose Weekly blood pressure task [...] Care Plan Patient has diabetic neuropathy No Rokcy Talamantes Patient has diabetic neuropathy Care Plan [...] filedocumented in this encounter Additional Health Concerns Active [...] documented as of this encounter Care Teams Agricultural Research Technician Relationship Specialty Start Date End Date Name, MD Henry [address] [place] [address] PCP - General Family Medicine 08/19/15 Finn Galindo Field SeismologistBowling Alley Attendant 08/06/23 Mari Carrion Hammer RunnerBowling Alley Attendant 12/03/23 Chiquita 01/18/24 documented as of this encounter
--- OUTSIDE RECORDS SUMMARY | 2025-04-12 14:20 | XMS_ITS | Encounter Summary ---
Author Organization [employer] Address 75 [facility] 7t [place] [address] Care Team Providers Care Plywood Scarfer Tender Name Role Phone Name, Henry BARTLETT Primary Care Provider [phone] Reason for Visit * Reason Onset Date Comments Prior Authorization 09/18/2023 Encounter Details Date Type Department Care Team ([facility] st Contact Info) Description 09/18/2023 Telephone [facility] MEDICINE 230 [place], [place] [phone] Name, MD Henry [address] [place] [address] Prior Authorization Social History Tobacco Use Types [...] 100 MG capsule unsure if medication needed PA.Hrbp spoke with pharmacy in which they stated medication needs a PA renewal. documented in this encounter Plan of Treatment Upcoming Encounters Date Type Department Care Team (Late st Contact Info) Description 04/14/2025 2:30 PM EST Office Visit [facility] MEDICINE [address] [place] [address] Name, MD Henry [address] [place] [address] 04/30/2025 9:30 AM EST Telemedicine [facility] MEDICINE [address] [place] [address] Suni Rodriguez RN 06/08/2025 9:30 AM EST Office Visit [facility] ADULT DENTAL [address] [place] [address] Clarisse Bar [address] [place] [address] documented as of this encounter Visit Diagnoses Not on filedocumented in this encounter Additional Health Concerns Assessment Noted Time PHQ-9 Depression Total Score: 6 09/14/19 23 9:53 AM EDT documented as of this encounter Care Teams Plywood Scarfer Tender Relationship Specialty Start Date End Date Name, MD Henry [address] [place] [address] PCP - General Family Medicine 08/19/15 Finn Galindo Grip WrapperDirector Of Materials 08/06/23 Mari Carrion Military Communications SpecialistDirector Of Materials 12/03/23 Chiquita 01/18/24 documented as of this encounter
== END 2025-04-12 11:37 | disposition home or self-care (01) ==
LOC: HO.HSM 10:57
PROVIDERS: PCP Internal Medicine Geriatric Medicine; Visit Provider Nurse Practitioner
DX: G30.9 Alzheimer's disease, unspecified (principal); F02.80 Dementia in other diseases classified elsewhere, unspecified severity, without behavioral disturbance, psychotic disturbance, mood disturbance, and anxiety
CPT/HCPCS: 99214

== ENCOUNTER → 2025-04-12 10:57 | Outpatient (BNVA) | payer OTHER, SELFPAY | PROVIDERS: PCP Internal Medicine Geriatric Medicine; Visit Provider Nurse Practitioner | DX: G30.9 Alzheimer's disease, unspecified (principal); F02.80 Dementia in other diseases classified elsewhere, unspecified severity, without behavioral disturbance, psychotic disturbance, mood disturbance, and anxiety | CPT/HCPCS: 99212 ==

== ENCOUNTER 2025-04-28 13:29 | Emergency (ER) | payer OTHER, SELFPAY ==
[2025-04-28 13:50] VITALS: BP 112/52; PULSE 81; RESP 18; TEMP 36.8; O2SAT 98; BMI 32.8
--- NOTE | 2025-04-28 13:52 | ED.GENADULT ---
HPI - General Adult General Chief complaint: Nausea/Vomiting/Diarrhea Stated complaint: vaginal bleeding, n/v/d, not eating Time Seen by Provider: 04/28/25 16:34 Source: patient Mode of arrival: ambulatory Limitations: no limitations History of Present Illness ED Provider: Dr. Figueroa HPI narrative: 64-year-old female history of Alzheimer's, COPD presented hospital today for diarrhea nausea and vomiting has not been eating much. She is also complaining of body wide aches and pain. He is confused diffuse abdominal tenderness. And some rectal bleeding. Patient has been feeling increasingly fatigued. Related Data Home Medications ?Medication ?Instructions ?Recorded ?Confirmed atorvastatin 20 mg tablet 20 mg PO BEDTIME 04/05/20 04/12/25 metformin 500 mg tablet 500 mg PO DAILY 04/05/20 04/12/25 Saccharomyces boulardii 10 billion 10,000 mmu cells PO BID 12/22/23 04/12/25 cell capsule acetaminophen 325 mg tablet 650 mg PO Q4H PRN Pain 12/22/23 04/12/25 (Tylenol) albuterol sulfate 90 mcg/actuation 2 puff inhalation Q6H PRN wheezing 12/22/23 04/12/25 aerosol inhaler (Ventolin HFA) aspirin 81 mg tablet,delayed 81 mg PO DAILY 12/22/23 04/12/25 release bisacodyl 10 mg rectal suppository 10 mg AK DAILY PRN Constipation 12/22/23 04/12/25 cetirizine 10 mg tablet 10 mg PO DAILY 12/22/23 04/12/25 docusate sodium 100 mg capsule 100 mg PO BID 12/22/23 04/12/25 famotidine 20 mg tablet 20 mg PO BEDTIME 12/22/23 04/12/25 ferrous gluconate 324 mg (38 mg 324 mg PO DAILY 12/22/23 04/12/25 iron) tablet fluticasone propionate 50 2 spray intranasal DAILY 12/22/23 04/12/25 mcg/actuation nasal spray,suspension (Flonase Allergy Relief) insulin lispro 100 unit/mL 1 sliding scale dose subcut TIDAC 12/22/23 04/12/25 subcutaneous solution losartan 50 mg tablet 50 mg PO DAILY 12/22/23 04/12/25 magnesium hydroxide 400 mg/5 mL 30 ml PO DAILY PRN Constipation 12/22/23 04/12/25 oral suspension (Milk of Magnesia) naloxone 4 mg/actuation nasal 4 mg intranasal Q3M PRN Opioid 12/22/23 04/12/25 spray (Narcan) Overdose oxycodone 5 mg tablet 5 mg PO Q4H PRN Moderate Pain 12/22/23 04/12/25 (Scale Score 5-6) pregabalin 100 mg capsule 100 mg PO TID 12/22/23 04/12/25 riboflavin (vitamin B2) 100 mg 100 mg PO DAILY 12/22/23 04/12/25 tablet riboflavin (vitamin B2) 400 mg 400 mg PO DAILY 12/22/23 04/12/25 tablet sennosides 8.6 mg-docusate sodium 2 tab-cap PO BEDTIME 12/22/23 04/12/25 50 mg tablet (Senna with Docusate Sodium) sodium phosphates 19 gram-7 118 ml AK DAILY PRN Constipation 12/22/23 04/12/25 gram/118 mL enema (Fleet Enema) sumatriptan succinate 100 mg tablet 100 mg PO DAILY PRN Migraine 12/22/23 04/12/25 Headache tamsulosin 0.4 mg capsule 0.4 mg PO BEDTIME 12/22/23 04/12/25 tizanidine 4 mg tablet 4 mg PO Q8H PRN Muscle Spasm 12/22/23 04/12/25 topiramate 50 mg tablet 50 mg PO BID 12/22/23 04/12/25 bupropion HCl 300 mg 24 hr tablet, 300 mg PO QAM 04/13/25 04/13/25 extended release citalopram 10 mg tablet 10 mg PO DAILY 04/13/25 04/13/25 donepezil 10 mg tablet 10 mg PO BEDTIME 04/13/25 04/13/25 duloxetine 60 mg capsule,delayed 60 mg PO 04/13/25 04/13/25 release trazodone 100 mg tablet 100 mg PO BEDTIME insomnia 04/13/25 04/13/25 Previous Rx's ?Medication ?Instructions ?Recorded amoxicillin 875 mg-potassium 1 tab PO BID #20 tabs 07/03/24 clavulanate 125 mg tablet fluticasone furoate 200 1 ea inhalation DAILY #60 ea 11/16/24 mcg-vilanterol 25 mcg/dose inhalation powder (Breo Ellipta) umeclidinium 62.5 mcg/actuation 1 inh inhalation DAILY #30 ea 11/16/24 blister powder for inhalation (Incruse Ellipta) pantoprazole 40 mg tablet,delayed 40 mg PO QAM #30 tabs 01/29/25 release memantine 5 mg tablet (Namenda) 5 mg PO QAM 30 days #30 tabs 04/12/25 loperamide 2 mg capsule (Imodium 2 mg PO Q4H PRN loose stool #30 04/28/25 A-D) caps ondansetron 4 mg disintegrating 4 mg PO Q8H PRN nausea and 04/28/25 tablet vomiting #14 tabs Allergies Allergy/AdvReac Type Severity Reaction Status Date / Time iodine Allergy Severe THROAT Verified 04/28/25 13:53 CLOSES ibuprofen AdvReac Intermediate UPSET Verified 04/28/25 13:53 STOMACH Review of Systems Review of Systems: Pertinent review of systems as mentioned in HPI. All other system otherwise negative. FORMERLY [facility] Past Medical History FOR[facility] Narrative: Medical history as mentioned in HPI Medical History (Updated 04/28/25 @ 18:39 by Kavita Figueroa DO) Personal history of nicotine dependence Toxic metabolic encephalopathy Hallucinations, visual Paranoid ideation Delirium Cellulitis of left leg SHANNAN (obstructive sleep apnea) Diabetes Hepatitis GERD (gastroesophageal reflux disease) Neuropathy Fibromyalgia Depression Sleep apnea Asthma Elevated cholesterol HTN (hypertension) Surgical History History of esophagogastroduodenoscopy (EGD) H/O colonoscopy S/P insertion of spinal cord stimulator Hx of excision of mass Hx of hernia repair Social History Social History Household Members: None Housing: Senior [facility] Do you presently have visiting nurse or other home services: No (currently at [facility]) Alcohol intake: current Alcohol intake frequency: does not drink Alcohol type: wine 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 Patient Tobacco Use Status: Tobacco use Unknown Cigarette Packs Per Day: 1 Cigarettes Per Day: 24 Years Smoked: 48 Substance Use Type: Marijuana Advance Directives: Yes Advance Directives on File: Yes Advance Directives Date on File: 12/23/23 Do you have a plan to hurt others: No Plan service: No Physical Exam ED Exam Exam: General: Pleasant, no distress, interacting appropriately Head: Normacephalic, atraumatic ENT: oral mucosa dry, neck supple, no tracheal deviation Cardiovascular: regular rate, regular rhythm, no murmurs, rubbing, gallops Respiratory: CTAB, no wheeze, rales, rhonchi Gastrointestinal: Soft, non distended, this diffuse abdominal tenderness on palpation Extremities: No limb pain or swelling, no calf tenderness Neurological: Awake and alert, no facial droop noted Skin: Warm and dry Psychiatric: Appropriate mood and thoughts Vital Signs: Vital Signs - 24 hr 04/28/25 13:50 Temperature 98.2 F Pulse Rate 81 Respiratory Rate 18 Blood Pressure 112/52 L Pulse Oximetry 98 Oxygen Delivery Method Room Air BMI result Body Mass Index 32.8 Course Course Course Narrative: This is a rapid medical exam performed by Татьяна Proctor NP: Additional HPI, ROS, PE not included below will be deferred to primary provider. Patient is a 64y/o Swazi speaking female presenting wtih complaint of diarrhea since last , hematochezia since Saturday, severe fatigue, not getting out of bed. Plan: labs Medications Administered Discontinued Medications Generic Name Dose Route Start Last Admin Trade Name Freq PRN Reason Stop Dose Admin Acetaminophen 975 mg 04/28/25 17:11 04/28/25 17:26 Acetaminophen 325 Mg Tablet PO 04/28/25 17:12 Not Given ONCE ONE Sodium Chloride 1,000 mls @ 999 mls/hr 04/28/25 17:15 04/28/25 18:32 Ns IV 04/28/25 18:15 Infused .Q1H1M PEYTON Infusion Loperamide HCl 6 mg 04/28/25 17:11 04/28/25 17:32 Loperamide Hcl 2 Mg Capsule PO 04/28/25 17:12 6 mg ONCE ONE Administration Ondansetron HCl 4 mg 04/28/25 17:11 04/28/25 17:32 Ondansetron Hcl 4 Mg/2 Ml Vial IVPUSH 04/28/25 17:12 4 mg ONCE ONE Administration Medical Decision Making Medical Decision Making [facility] Narrative: This is a 64-year-old female presented hospital today for evaluation of nausea vomiting and diarrhea since last . On my physical exam patient does have hemorrhoids. I suspect this is likely exacerbated by her diarrhea. Patient will be given some IV Zofran IV fluid and Imodium here. Her abdominal pain is nonspecific. She is diffusely tender however there was no signs of guarding I do not think she has a acute surgical abdomen. Given patient's symptoms of nausea vomiting and diarrhea and diffuse abdominal tenderness. I do think this is gastroenteritis in nature. Patient's hemoglobin stable at 11.7. This is around her baseline hemoglobin level. No sign of leukocytosis, patient does have bump creatinine at 1.44. This is likely secondary to dehydration. Patient LFTs normal. TSH is normal. Flu COVID and RSV swab is negative. Patient stated that she is feeling better on reassessment. Requesting to be discharged at this time. Patient will be discharged home with some Zofran to take and Imodium to take. Encouraged conservative treatment and to stay well hydrated. The patient stated that she is feeling better she appears to be well. She is stable. Differential Diagnosis Differential Diagnoses: The differential diagnosis associated with the presentation includes Gastroenteritis, dehydration, nausea, vomiting Lab Data MDM Lab Attestation statement: I reviewed the patient's lab results. 04/28/25 14:06 04/28/25 14:06 Labs: Lab Results 04/28/25 04/28/25 Range/Units 14:06 17:41 WBC 7.6 (4.8-10.8) X10*3/uL RBC 4.45 (4.20-5.50) X10*6/uL Hgb 11.7 L (12.0-16.0) g/dl Hct 38.1 (37.0-47.0) % MCV 85.6 (80.0-98.0) fL MCH 26.3 L (27.0-33.0) pg MCHC 30.7 L (31.0-35.0) g/dl RDW 14.4 (11.0-16.0) % Plt Count 189 (160-400) X10*3/uL MPV 10.8 (9.4-12.3) fL Immature Gran % (Auto) 0.3 (0.0-0.4) % Neut % (Auto) 71.2 (45-73) % Lymph % (Auto) 19.2 L (20-40) % [place] % (Auto) 7.6 (2-11) % Eos % (Auto) 1.2 (0-4) % Baso % (Auto) 0.5 (0-2) % Lymph # (Auto) 1.5 (1.2-4.9) X10*3/uL [place]bury # (Auto) 0.6 (0.1-1.2) X10*3/uL Eos # (Auto) 0.1 (0.0-0.4) X10*3/uL Baso # (Auto) 0.0 (0.0-0.2) X10*3/uL Abs Immat Gran (auto) 0.02 (0.00-0.03) X10*3/uL Absolute Neuts (auto) 5.4 (2.0-8.3) x10*3/uL Absolute Nucleated RBC 0.000 (0.0-0.012) X10*3/uL Nucleated RBC % (auto) 0.0 (0.0-0.2) /100WBC PT 13.5 (11.2-13.5) SEC INR 1.1 (0.9-1.1) Sodium 140 (135-145) mmol/L Potassium 4.7 (3.3-5.1) mmol/L Chloride 108 (96-108) mmol/L Carbon Dioxide 23 (22-29) mmol/L Anion Gap 14 (12-20) BUN 24 H (9-16) mg/dL Creatinine 1.44 H (0.5-1.4) mg/dL Estim Creat Clear Calc 40.0 Estimated GFR 37 Random Glucose 81 (60-115) mg/dL Calcium 9.8 (8.4-10.2) mg/dL Magnesium 1.6 (1.6-2.6) mg/dL Total Bilirubin 0.3 (0.0-1.0) mg/dL AST 20 (5-31) U/L ALT 12 (0-31) U/L Alkaline Phosphatase 76 (39-117) U/L Total Protein 8.0 (6.5-8.0) g/dL Albumin 4.8 (3.5-5.0) g/dL TSH 0.71 (0.32-4.0) uIU/mL Influenza Type A (PCR) NEGATIVE (Negative) Influenza Type B (PCR) NEGATIVE (Negative) RSV RNA Qual (PCR) NEGATIVE (Negative) SARS-CoV-2 RNA (RT-PCR) NEGATIVE (Negative) Blood Type O Negative Antibody Screen NEGATIVE Discharge Plan Discharge Clinical Impression: Gastroenteritis Patient Disposition: Home, Self-Care Additional Instructions: Take 1000mg tylenol every 8 hours for body aches. Follow up with primary care doctor. Creatine for the kidney here was 1.44. Have this test repeated. Prescriptions: New ondansetron 4 mg tablet,disintegrating 4 mg PO Q8H PRN (Reason: nausea and vomiting) Qty: 14 0RF loperamide [Imodium A-D] 2 mg capsule 2 mg PO Q4H PRN (Reason: loose stool) Qty: 30 0RF Rx Instructions: administer after each loose stool until symptoms controlled; do not exceed 8 mg per 24 hrs No Action fluticasone furoate-vilanterol [Breo Ellipta] 200-25 mcg/dose blister with device 1 ea inhalation DAILY Qty: 60 6RF Incruse Ellipta 62.5 mcg/actuation blister with device 1 inh inhalation DAILY Qty: 30 6RF pantoprazole 40 mg tablet,delayed release (DR/EC) 40 mg PO QAM Qty: 30 6RF metformin 500 mg Tablet 500 mg PO DAILY atorvastatin 20 mg Tablet 20 mg PO BEDTIME losartan 50 mg Tablet 50 mg PO DAILY acetaminophen [Tylenol] 325 mg Tablet 650 mg PO Q4H PRN (Reason: Pain) cetirizine 10 mg Tablet 10 mg PO DAILY tizanidine 4 mg Tablet 4 mg PO Q8H PRN (Reason: Muscle Spasm) riboflavin (vitamin B2) 100 mg Tablet 100 mg PO DAILY sumatriptan succinate 100 mg Tablet 100 mg PO DAILY PRN (Reason: Migraine Headache) Rx Instructions: do not exceed 2 doses per 24 hrs sennosides-docusate sodium [Senna with Docusate Sodium] 8.6-50 mg Tablet 2 tab-cap PO BEDTIME aspirin 81 mg Tablet,Delayed Release (Dr/Ec) 81 mg PO DAILY famotidine 20 mg Tablet 20 mg PO BEDTIME magnesium hydroxide [Milk of Magnesia] 400 mg/5 mL Suspension 30 ml PO DAILY PRN (Reason: Constipation) tamsulosin 0.4 mg Capsule 0.4 mg PO BEDTIME bisacodyl 10 mg Suppository 10 mg AK DAILY PRN (Reason: Constipation) Fleet Enema 19-7 gram/118 mL Enema 118 ml AK DAILY PRN (Reason: Constipation) docusate sodium 100 mg Capsule 100 mg PO BID insulin lispro 100 unit/mL Solution 1 sliding scale dose SUBCUT TIDAC albuterol sulfate [Ventolin HFA] 90 mcg/actuation HFA aerosol inhaler 2 puff INHALATION Q6H PRN (Reason: wheezing) fluticasone propionate [Flonase Allergy Relief] 50 mcg/actuation Pawling,Suspension 2 spray INTRANASAL DAILY Rx Instructions: administer into each nostril oxycodone 5 mg Tablet 5 mg PO Q4H PRN (Reason: Moderate Pain (Scale Score 5-6)) topiramate 50 mg Tablet 50 mg PO BID pregabalin 100 mg Capsule 100 mg PO TID ferrous gluconate 324 mg (38 mg iron) Tablet 324 mg PO DAILY riboflavin (vitamin B2) 400 mg Tablet 400 mg PO DAILY Saccharomyces boulardii 10 billion cell Capsule 10,000 mmu cells PO BID naloxone [Narcan] 4 mg/actuation Pawling,Non-Aerosol 4 mg INTRANASAL Q3M PRN (Reason: Opioid Overdose) Rx Instructions: spray 1 dose into ONE nostril; alternate nostrils w each dose until help arrives amoxicillin-pot clavulanate 875-125 mg tablet 1 tab PO BID Qty: 20 0RF memantine [Namenda] 5 mg tablet 5 mg PO QAM 30 Days Qty: 30 3RF trazodone 100 mg tablet 100 mg PO BEDTIME bupropion HCl 300 mg tablet extended release 24 hr 300 mg PO QAM duloxetine 60 mg capsule,delayed release(DR/EC) 60 mg PO donepezil 10 mg tablet 10 mg PO BEDTIME citalopram 10 mg tablet 10 mg PO DAILY Print Language: Swazi
[2025-04-28 14:16] LABS: MANUAL DIFF FLAG NO
[2025-04-28 14:20] LABS: Hematocrit 38.1 % (37.0-47.0); Hemoglobin 11.7 g/dl (12.0-16.0); Imm Gran Abs Auto 0.02 X10*3/uL (0.00-0.03); Imm Gran Pct Auto 0.3 % (0.0-0.4); Lymphocytes Absolute Auto 1.5 X10*3/uL (1.2-4.9); Mean Corpuscular HGB Conc 30.7 g/dl (31.0-35.0); Mean Corpuscular Hemoglobin 26.3 pg (27.0-33.0); Mean Corpuscular Volume 85.6 fL (80.0-98.0); NRBC Abs Auto 0.000 X10*3/uL (0.0-0.012); NRBC Pct Auto 0.0 /100WBC (0.0-0.2); Platelet Count 189 X10*3/uL (160-400); Red Blood Count 4.45 X10*6/uL (4.20-5.50); White Blood Count 7.6 X10*3/uL (4.8-10.8)
[2025-04-28 14:23] LABS: INTERNATIONAL NORM RATIO 1.1 (0.9-1.1); Prothrombin Time 13.5 SEC (11.2-13.5)
[2025-04-28 14:51] LABS: Alanine Aminotransferase 12 U/L (0-31); Albumin Level 4.8 g/dL (3.5-5.0); Alkaline Phosphatase 76 U/L (39-117); Anion Gap 14 (12-20); Aspartate Amino Transferase 20 U/L (5-31); Blood Urea Nitrogen 24 mg/dL (9-16); Calcium 9.8 mg/dL (8.4-10.2); Carbon Dioxide 23 mmol/L (22-29); Chloride 108 mmol/L (96-108); Creatinine Clr Calc Pharmacy 40.0; Estimated Glomerular Filt Rate 37; Magnesium 1.6 mg/dL (1.6-2.6); Potassium 4.7 mmol/L (3.3-5.1); Sodium 140 mmol/L (135-145); Total Protein 8.0 g/dL (6.5-8.0)
[2025-04-28 18:29] LABS: Resp Syncy Virus RNA Qual PCR NEGATIVE (Negative); SARS COV2 PCR INHOUSE NEGATIVE (Negative)
[2025-04-28 18:46] VITALS: BP 116/78; PULSE 78; RESP 20; TEMP 36.7; O2SAT 98
--- OUTSIDE RECORDS SUMMARY | 2025-04-28 21:01 | XMS_ITS | Encounter Summary ---
Author Organization [employer] Address [address] [facility] [address] [place] [address] Care Team Providers Care Director Agency & Strategic Partnerships Name Role Phone Name, Henry BARTLETT Primary Care Provider [phone] Reason for Visit * Reason Comments Med Refill Encounter Details Date Type Department Care Team ([facility] st Contact Info) Description 07/09/2023 Refill [facility] [address] [place], [place] [phone] Name, MD Henry [address] [place] [address] Chronic pain syndrome Social History Tobacco Use [...] Care Team (Late st Contact Info) Description 04/30/2025 9:30 AM EST Telemedicine [facility] [address] [place] [phone] Suni Rodriguez RN 06/08/2025 9:30 AM EST Office Visit [facility] [address] [place] [phone] Clarisse Bar [address] [place] [address] 06/21/2025 10:30 AM EST Office Visit [facility] [address] [place] [phone] Holger Marquez DDS [address] [place] [address] 06/22/2025 3:15 PM EST Office Visit [facility] [address] [place] [phone] NameHenry MD [address] [place] [phone] documented as of this encounter Visit Diagnoses Diagnosis Chronic pain syndrome documented in this encounter Additional Health Concerns Assessment Noted Time PHQ-9 Depression Total Score: 6 09/14/19 23 9:53 AM EDT documented as of this encounter Care Teams Director Agency & Strategic Partnerships Relationship Specialty Start Date End Date Henry Bernardo MD [address] [place] [id number] PCP - General Family Medicine 08/19/15 Finn Galindo Waste Handling TechnicianSynthetic Soil Blocks Pulper 08/06/23 Mari Carrion Entry Driver OperatorSynthetic Soil Blocks Pulper 12/03/23 Chiquita 01/18/24 documented as of this encounter
--- OUTSIDE RECORDS SUMMARY | 2025-04-28 21:01 | XMS_ITS | Encounter Summary ---
Author Organization [employer] Address [address] [facility] [address] [place] [address] Care Team Providers Care Supervisor Research Kennel Name Role Phone Name, Henry BARTLETT Primary Care Provider [phone] Reason for Visit * Reason Comments Med Refill Encounter Details Date Type Department Care Team ([facility] st Contact Info) Description 08/05/2023 Refill [facility] [address] [place], [place] [phone] Name, MD Henry [address] [place] [address] Chronic pain syndrome Social History Tobacco Use [...] Info) Description 04/30/2025 9:30 AM EST Telemedicine [facility] [address] [place] [phone] Suni Rodriguez RN 06/08/2025 9:30 AM EST Office Visit [facility] AD[facility] [address] [place] [phone] Clarisse Bar [address] [place] [address] 06/21/2025 10:30 AM EST Office Visit [facility] [address] [place] [phone] Holger Marquez DDS [address] [place] [address] 06/22/2025 3:15 PM EST Office Visit [facility] [address] [place] [phone] NameHenry MD [address] [place] [phone] documented as of this encounter Visit Diagnoses Diagnosis Chronic pain syndrome documented in this encounter Additional Health Concerns Assessment Noted Time PHQ-9 Depression Total Score: 6 09/14/19 23 9:53 AM EDT documented as of this encounter Care Teams Supervisor Research Kennel Relationship Specialty Start Date End Date Henry Bernardo MD [address] [place] [id number] PCP - General Family Medicine 08/19/15 Finn Galindo Transit Operations SupervisorFirst Coat Sander 08/06/23 Mari Carrion Test And Turn Up TechnicianFirst Coat Sander 12/03/23 Chiquita 01/18/24 documented as of this encounter
--- OUTSIDE RECORDS SUMMARY | 2025-04-28 21:01 | XMS_ITS | Encounter Summary ---
Author Organization [employer] Address [address] [facility] 7t [place] [address] Care Team Providers Care Echocardiography Tech Name Role Phone Name, Henry BARTLETT Primary Care Provider [phone] Reason for Visit * Reason Comments Med Refill Encounter Details Date Type Department Care Team ([facility] st Contact Info) Description 04/24/2025 Refill [facility] MEDICINE [address] [place], [place] [phone] Name, MD Henry [address] [place] [address] Social History Tobacco Use Types Packs/Day Years [...] Info) Description 04/30/2025 9:30 AM EST Telemedicine [facility] MEDICINE [address] [place] [address] Suni Rodriguez RN 06/08/2025 9:30 AM EST Office Visit [facility] ADULT DENTAL [address] [place] [address] Clarisse Bar [address] [place] [address] 06/21/2025 10:30 AM EST Office Visit [facility] ADULT DENTAL [address] [place] [address] Holger Marquez DDS [address] [place] [address] 06/22/2025 3:15 PM EST Office Visit [facility] MEDICINE [address] [place] [phone] Name, MD Henry [address] [place] [phone] documented as of this encounter Goals Goal [...] Care Plan Patient has diabetic neuropathy No Preston Sonylee Weekly blood pressure task Care Plan Weekly blood pressure task No Preston, Sonylee Weekly blood pressure task Care Plan Weekly blood pressure task No Preston Sonylee Patient has chronic kidney disease Care Plan Patient has chronic kidney disease No Preston, Sonylee Patient has chronic kidney disease Care Plan Patient has chronic kidney disease No Preston Sonylee Patient has diabetic neuropathy Care Plan Patient has diabetic neuropathy No PrestonJoeyylee Patient has diabetic neuropathy Care Plan Patient has diabetic neuropathy No Preston, Sonylee Weekly blood pressure task Care Plan Weekly blood pressure task No KiddOlliea Weekly blood pressure task Care Plan Weekly blood pressure task No KdidOlliea Weekly blood pressure task Care Plan Weekly blood pressure task No KiddJoseRose Patient has chronic kidney disease Care Plan [...] Patient has diabetic neuropathy No Yi Talamantes Weekly blood pressure task Care Plan Weekly blood pressure task No Antonia Salmon MA Weekly blood pressure task Care Plan Weekly blood pressure task No Antonia Salmon MA Weekly blood pressure task Care Plan Weekly blood pressure task No Antonia Salmon MA Patient has chronic kidney disease Care Plan Patient has chronic kidney disease No Antonia Salmon MA Patient has chronic kidney disease Care Plan Patient has chronic kidney disease No Antonia Salmon MA Patient has chronic kidney disease Care Plan Patient has chronic kidney disease No Antonia Salmon MA Patient has diabetic neuropathy Care Plan Patient has diabetic neuropathy No Antonia Salmon MA Patient has diabetic neuropathy Care Plan Patient has diabetic neuropathy No Antonia Salmon MA Patient has diabetic neuropathy Care Plan Patient has diabetic neuropathy No Antonia Salmon MA Weekly blood pressure task Care Plan Weekly blood pressure task No Antonia Salmon MA Weekly blood pressure task Care Plan Weekly blood pressure task No Antonia Salmon MA Weekly blood pressure task Care Plan Weekly blood pressure task No Antonia Salmon MA Patient has chronic kidney disease Care Plan Patient has chronic kidney disease No Antonia Salmon MA Patient has chronic kidney disease Care Plan Patient has chronic kidney disease No Antonia Salmon MA Patient has chronic kidney disease Care Plan Patient has chronic kidney disease No Antonia Salmon MA Patient has diabetic neuropathy Care Plan Patient has diabetic neuropathy No Antonia Salmon MA Patient has diabetic neuropathy Care Plan Patient has diabetic neuropathy No Antonia Salmon MA Patient has diabetic neuropathy Care Plan Patient has diabetic neuropathy No Antonia Salmon MA Weekly blood pressure task Care Plan Weekly blood pressure task No Gardner, Haley, DISTRIBUTOR SALES MANAGER Weekly blood pressure task Care Plan Weekly blood pressure task No Gardner, Haley, DISTRIBUTOR SALES MANAGER Weekly blood pressure task Care Plan Weekly blood pressure task No Gardner, Haley, DISTRIBUTOR SALES MANAGER Patient has chronic kidney disease Care Plan Patient has chronic kidney disease No Gardner, Haley, DISTRIBUTOR SALES MANAGER Patient has chronic kidney disease Care Plan Patient has chronic kidney disease No Gardner, Haley, DISTRIBUTOR SALES MANAGER Patient has chronic kidney disease Care Plan Patient has chronic kidney disease No Gardner, Haley, DISTRIBUTOR SALES MANAGER Patient has diabetic neuropathy Care Plan Patient has diabetic neuropathy No Gardner, Haley, DISTRIBUTOR SALES MANAGER Patient has diabetic neuropathy Care Plan Patient has diabetic neuropathy No Gardner, Haley, DISTRIBUTOR SALES MANAGER Patient has diabetic neuropathy Care Plan Patient has diabetic neuropathy No Gardner, Haley, DISTRIBUTOR SALES MANAGER Weekly blood pressure task Care Plan Weekly blood pressure task No Mason-Acost a, Lorena, DDS Weekly blood pressure task Care Plan Weekly blood pressure task No Mason-Acost a, Lorena, DDS Weekly blood pressure task Care Plan Weekly blood pressure task No Mason-Acost a, Lorena, DDS Patient has chronic kidney disease Care Plan Patient has chronic kidney disease No Mason-Acost a, Lorena, DDS Patient has chronic kidney disease Care Plan Patient has chronic kidney disease No Mason-Acost a, Lorena, DDS Patient has chronic kidney disease Care Plan Patient has chronic kidney disease No Mason-Acost a, Lorena, DDS Patient has diabetic neuropathy Care Plan Patient has diabetic neuropathy No Mason-Acost a, Lorena, DDS Patient has diabetic neuropathy Care Plan Patient has diabetic neuropathy No Mason-Acost a, Lorena, DDS Patient has diabetic neuropathy Care Plan Patient has diabetic neuropathy No Mason-Acost a, Lorena, DDS Weekly blood pressure task Care Plan Weekly [...] Plan Patient has chronic kidney disease No Jennifer, Suni, RN Patient has chronic kidney disease Care Plan Patient has chronic kidney disease Suni Palencia RN Patient has diabetic neuropathy Care Plan Patient has diabetic neuropathy No Suni Rodriguez RN Patient has diabetic neuropathy Care Plan Patient has diabetic neuropathy No Suni Rodriguez RN Patient has diabetic neuropathy Care Plan Patient has diabetic neuropathy Suni Palencia RN documented as of this encounter Visit [...] diabetic neuropathy 04/12/2025 Weekly blood pressure task 04/13/2025 Weekly blood pressure task 04/13/2025 Weekly blood pressure task 04/13/2025 Patient has chronic kidney disease 04/13/2025 Patient has chronic kidney disease 04/13/2025 Patient has chronic kidney disease 04/13/2025 Patient has diabetic neuropathy 04/13/2025 Patient has diabetic neuropathy 04/13/2025 Patient has diabetic neuropathy 04/13/2025 Weekly blood pressure task 04/13/2025 Weekly blood pressure task 04/13/2025 Weekly blood pressure task 04/13/2025 Patient has chronic kidney disease 04/13/2025 Patient has chronic kidney disease 04/13/2025 Patient has chronic kidney disease 04/13/2025 Patient has diabetic neuropathy 04/13/2025 Patient has diabetic neuropathy 04/13/2025 Patient has diabetic neuropathy 04/13/2025 Weekly blood pressure task 04/15/2025 Weekly blood pressure task 04/15/2025 Weekly blood pressure task 04/15/2025 Patient has chronic kidney disease 04/15/2025 Patient has chronic kidney disease 04/15/2025 Patient has chronic kidney disease 04/15/2025 Patient has diabetic neuropathy 04/15/2025 Patient has diabetic neuropathy 04/15/2025 Patient has diabetic neuropathy 04/15/2025 Weekly blood pressure task 04/19/2025 Weekly blood pressure task 04/19/2025 Weekly blood pressure task 04/19/2025 Patient has chronic kidney disease 04/19/2025 Patient has chronic kidney disease 04/19/2025 Patient has chronic kidney disease 04/19/2025 Patient has diabetic neuropathy 04/19/2025 Patient has diabetic neuropathy 04/19/2025 Patient has diabetic neuropathy 04/19/2025 Weekly blood pressure task 04/20/2025 Weekly blood pressure task 04/20/2025 Weekly blood pressure task 04/20/2025 Patient has chronic kidney disease 04/20/2025 Patient has chronic kidney disease 04/20/2025 Patient has chronic kidney disease 04/20/2025 Patient has diabetic neuropathy 04/20/2025 Patient has diabetic neuropathy 04/20/2025 Patient has diabetic neuropathy 04/20/2025 Weekly blood pressure task 04/20/2025 Weekly blood pressure task 04/20/2025 Weekly blood pressure task 04/20/2025 Patient has chronic kidney disease 04/20/2025 Patient has chronic kidney disease 04/20/2025 Patient has chronic kidney disease 04/20/2025 Patient has diabetic neuropathy 04/20/2025 Patient has diabetic neuropathy 04/20/2025 Patient has diabetic neuropathy 04/20/2025 Weekly blood pressure task 04/21/2025 Weekly blood pressure task 04/21/2025 Weekly blood pressure task 04/21/2025 Patient has chronic kidney disease 04/21/2025 Patient has chronic kidney disease 04/21/2025 Patient has chronic kidney disease 04/21/2025 Patient has diabetic neuropathy 04/21/2025 Patient has diabetic neuropathy 04/21/2025 Patient has diabetic neuropathy 04/21/2025 Assessment Noted Time PHQ-9 Depression Total Score: 24 025 11:00 AM EDT documented as of this encounter Care Teams Echocardiography Tech Relationship Specialty Start Date End Date Name, MD Henry [address] [place] [id number] PCP - General Family Medicine 08/19/15 Finn Galindo Application Infrastructure EngineerWagon Driller 08/06/23 Mari Carrion Air Quality SpecialistWagon Driller 12/03/23 Chiquita 01/18/24 documented as of this encounter
--- OUTSIDE RECORDS SUMMARY | 2025-04-28 21:01 | XMS_ITS | Encounter Summary ---
Author Organization [employer] Address [address] [facility] 7t [place] [address] Care Team Providers Care Liquid Natural Gas Plant Operator Name Role Phone Name, Henry BARTLETT Primary Care Provider [phone] Encounter Details Date Type Department Care Team (Latest Contact Info) Description 03/20/[address] [facility] CONVERSIONS Dental, Provider, DDS Social History Tobacco [...] Info) Description 04/30/2025 9:[address] [facility] MEDICINE [address] [place] [address] Suni Rodriguez RN 06/08/2025 9:30 AM EST Office Visit [facility] ADULT DENTAL [address] [place] [address] Clarisse Bar [address] [place] [address] 06/21/2025 10:30 AM EST Office Visit [facility] ADULT DENTAL [address] [place] [address] Holger Marquez DDS [address] [place] [address] 06/22/2025 3:15 PM EST Office Visit [facility] MEDICINE [address] [place] [address], [place] [address] Name, MD Henry [address] [place] [address] documented as of this encounter Visit Diagnoses Not on filedocumented in this encounter Care Teams Liquid Natural Gas Plant Operator Relationship Specialty Start Date End Date Name, MD Henry [address] [place] [address] PCP - General Family Medicine 08/19/15 Finn Galindo Child Protective InvestigatorAutomotive Worker 08/06/23 Mari Carrion Ice Cream Machine OperatorAutomotive Worker 12/03/23 Chiquita 01/18/24 documented as of this encounter
--- OUTSIDE RECORDS SUMMARY | 2025-04-28 21:01 | XMS_ITS | Encounter Summary ---
Author Organization [employer] Address [address] [facility] 7t [place] [address] Care Team Providers Care Board Worker Name Role Phone Name, Henry BARTLETT Primary Care Provider [phone] Reason for Visit * Reason Onset Date Comments Nurse Triage 04/28/2025 Encounter Details Date Type Department Care Team ([facility] st Contact Info) Description 04/28/2025 Telephone [facility] MEDICINE [address] [place], [place] [phone] Name, MD Henry [address] [place] [address] Nurse Triage Social History Tobacco Use Types [...] encounter Miscellaneous Notes * Telephone Encounter - Nancy Sommers RN - 04/28/2025 1:27 PM EST Call returned to pt's daughter Shayy who is with pt awaiting evaluation in the ED. Reports that pt started having diarrhea on . Reports that pt noted bloody diarrhea since Saturday. Reports pt has a fever. Denies nausea, vomiting and reports that pt has not complained of abdominal pain. Shayy reports that pt has a decreased appetite and has not eaten anything today. Reports pt has had 5 episodes today of bloody diarrhea. Reports pt is more sleepy than usual. Reports she had to wake pt up to bring her to the ED. Encouraged daughter to remain in ED and to update ED staff with pt's conditions. Recommended to call to schedule f/u upon discharge. Daughter reports agreement with plan. Protocol Used: Diarrhea (Adult) Protocol-Based Disposition: Go to ED Now Positive Triage Questions: * Bloody, black, or tarry bowel movements (Exception: Chronic-unchanged black- smart bowel movements and is taking iron pills or Pepto-Bismol.) * Severe diarrhea (e.g., 7 or more times / day more than normal) and age > 60 years * Patient sounds very sick or weak to the triager * All higher-acuity triage questions were negative. Care Advice Discussed: * Reasons To Call Back - Signs of dehydration occur (such as no urine over 12 hours, very dry mouth, lightheaded, etc.) - You become worse * Telephone Encounter - Loly Joe Rosa - 04/28/2025 12:27 PM EST Symptoms: Loss of Appetite, Diarrhea Outcome: Talk to a nurse or provider within 15 minutes Reason: Blood in the diarrhea The caller accepted this outcome. Contact pt Daughter at [phone] documented in this encounter Plan of Treatment Upcoming Encounters Date Type Department Care Team (Late st Contact Info) Description 04/30/2025 9:30 AM EST Telemedicine [facility] MEDICINE [address] [place] [address] Suni Rodriguez RN 06/08/2025 9:30 AM EST Office Visit [facility] ADULT DENTAL [address] [place] [address] Clarisse Bar [address] [place] [address] 06/21/2025 10:30 AM EST Office Visit [facility] ADULT DENTAL [address] [place] [address] Holger Marquez DDS [address] [place] [address] 06/22/2025 3:15 PM EST Office Visit [facility] MEDICINE [address] [place] [address] Az, MD Henry [address] [place] [phone] documented as of this encounter Goals Goal [...] manage their type 2 diabetes Daryn Felix Patient has chronic kidney disease Care Plan Patient has chronic kidney disease No Preston, Sonylee Help patients manage their type 2 diabetes Care Plan Help patients manage their type 2 diabetes No Preston Sonylee Patient has diabetic neuropathy [...] Plan Weekly blood pressure task No KiddJoseRose Weekly blood pressure task Care Plan Weekly blood pressure task No Kidd Rose Weekly blood pressure task Care Plan Weekly blood pressure task No KiddJoseRose Patient has chronic kidney disease Care Plan Patient has chronic kidney disease No KiddJoseRose Patient has chronic kidney disease Care Plan Patient has chronic kidney disease No Kidd Rose Patient has chronic kidney disease Care Plan Patient has chronic kidney disease No Kidd Rose Patient has diabetic neuropathy Care Plan Patient has diabetic neuropathy No KiddOlliea Patient has diabetic neuropathy Care Plan Patient [...] Care Plan Patient has diabetic neuropathy No Anotnia Salmon [place] Weekly blood pressure task Care [...] Weekly blood pressure task No Gardner, Haley, TAPE SEWING MACHINE OPERATOR Weekly blood pressure task Care Plan Weekly blood pressure task No Gardner, Haley, TAPE SEWING MACHINE OPERATOR Weekly blood pressure task Care Plan Weekly blood pressure task No Gardner, Haley, TAPE SEWING MACHINE OPERATOR Patient has chronic kidney disease Care Plan Patient has chronic kidney disease No Gardner, Haley, TAPE SEWING MACHINE OPERATOR Patient has chronic kidney disease Care Plan Patient has chronic kidney disease No Gardner, Haley, TAPE SEWING MACHINE OPERATOR Patient has chronic kidney disease Care Plan Patient has chronic kidney disease No Gardner, Haley, TAPE SEWING MACHINE OPERATOR Patient has diabetic neuropathy Care Plan Patient has diabetic neuropathy No Gardner, Haley, TAPE SEWING MACHINE OPERATOR Patient has diabetic neuropathy Care Plan Patient has diabetic neuropathy No Gardner, Haley, TAPE SEWING MACHINE OPERATOR Patient has diabetic neuropathy Care Plan Patient has diabetic neuropathy No Gardner, Haley, TAPE SEWING MACHINE OPERATOR Weekly blood pressure task Care Plan Weekly [...] Plan Patient has chronic kidney disease No Rokcy Talamantes Patient has chronic kidney disease Care [...] Care Plan Weekly blood pressure task No Sanjuanita Dhaliwal MA Weekly blood pressure task Care Plan Weekly blood pressure task No Snajuanita Dhaliwal MA Weekly blood pressure task Care Plan Weekly blood pressure task No Sanjuanita Dhaliwal [place] Patient has chronic kidney disease Care Plan Patient has chronic kidney disease No Sanjuanita Dhaliwal [place] Patient has chronic kidney disease Care Plan Patient has chronic kidney disease No Sanjuanita Dhaliwal [place] Patient has chronic kidney disease Care Plan Patient has chronic kidney disease No Sanjuanita Dhaliwal [place] Patient has diabetic neuropathy Care Plan Patient has diabetic neuropathy No Sanjuanita Dhaliwal [place] Patient has diabetic neuropathy Care Plan Patient has diabetic neuropathy No Sanjuanita Dhaliwal [place] Patient has diabetic neuropathy Care Plan Patient has diabetic neuropathy No Sanjuanita Dhaliwal MA Weekly blood pressure task Care Plan [...] Care Plan Weekly blood pressure task No Loly Graham Weekly blood pressure task Care Plan Weekly blood pressure task No Loly Graham Weekly blood pressure task Care Plan Weekly blood pressure task No Loly Graham Patient has chronic kidney disease Care Plan Patient has chronic kidney disease No Loly Graham Patient has chronic kidney disease Care Plan Patient has chronic kidney disease No Loly Graham Patient has chronic kidney disease Care Plan Patient has chronic kidney disease No Loly Graham Patient has diabetic neuropathy Care Plan Patient has diabetic neuropathy No Loly Graham Patient has diabetic neuropathy Care Plan Patient has diabetic neuropathy No Loly Graham Patient has diabetic neuropathy Care Plan Patient has diabetic neuropathy No Loly Graham documented as of this encounter Visit Diagnoses [...] neuropathy 04/21/2025 Patient has diabetic neuropathy 04/21/2025 Weekly blood pressure task 04/27/2025 Weekly blood pressure task 04/27/2025 Weekly blood pressure task 04/27/2025 Patient has chronic kidney disease 04/27/2025 Patient has chronic kidney disease 04/27/2025 Patient has chronic kidney disease 04/27/2025 Patient has diabetic neuropathy 04/27/2025 Patient has diabetic neuropathy 04/27/2025 Patient has diabetic neuropathy 04/27/2025 Weekly blood pressure task 04/27/2025 Weekly blood pressure task 04/27/2025 Weekly blood pressure task 04/27/2025 Patient has chronic kidney disease 04/27/2025 Patient has chronic kidney disease 04/27/2025 Patient has chronic kidney disease 04/27/2025 Patient has diabetic neuropathy 04/27/2025 Patient has diabetic neuropathy 04/27/2025 Patient has diabetic neuropathy 04/27/2025 Weekly blood pressure task 04/28/2025 Weekly blood pressure task 04/28/2025 Weekly blood pressure task 04/28/2025 Patient has chronic kidney disease 04/28/2025 Patient has chronic kidney disease 04/28/2025 Patient has chronic kidney disease 04/28/2025 Patient has diabetic neuropathy 04/28/2025 Patient has diabetic neuropathy 04/28/2025 Patient has diabetic neuropathy 04/28/2025 Assessment Noted Time PHQ-9 Depression Total Score: 24 025 11:00 AM EDT documented as of this encounter Care Teams Board Worker Relationship Specialty Start Date End Date Name, MD Henry [address] [place] [address] PCP - General Family Medicine 08/19/15 Finn Galindo Cloth Seconds SorterDog Races Manager 08/06/23 Mari Carrion Hospice Office CoordinatorDog Races Manager 12/03/23 Chiquita 01/18/24 documented as of this encounter
--- OUTSIDE RECORDS SUMMARY | 2025-04-28 21:01 | XMS_ITS | Encounter Summary ---
Author Organization [employer] Address [address] [facility] 7t [place] [address] Care Team Providers Care Wall Worker Name Role Phone Name, Henry BARTLETT Primary Care Provider [phone] Encounter Details Date Type Department Care Team (Late Contact Info) Description 05/09/2022 [facility] Only [facility] [address] [place], [place] [phone] Darlyn Pagan RN Social History Tobacco Use [...] Department Care Team (Late Contact Info) Description 04/30/2025 9:30 AM EST Telemedicine [facility] MEDICINE [address] [place], [place] [phone] Suni Rodriguez, EDWARD 06/08/2025 9:30 AM EST Office Visit [facility] ADULT DENTAL [address] [place] [address] Clarisse Bar [address] [place] [address] 06/21/2025 10:30 AM EST Office Visit [facility] ADULT DENTAL [address] [place], [place] [phone] Holger Marquez, JESENIA [address] [place], [place] [phone] 06/22/2025 3:15 PM EST Office Visit [facility] MEDICINE [address] [place], [place] [phone] Name, MD Henry [address] [place], [place] [phone] documented as of this encounter Visit Diagnoses Not on filedocumented in this encounter Care Teams Wall Worker Relationship Specialty Start Date End Date Name, MD Henry Kishan [place], [place] [phone] PCP - General Family Medicine 08/19/15 Finn Galindo Drafter PlumbingBulk Folder 08/06/23 Mari Carrion Tube HandlerBulk Folder 12/03/23 Chiquita 01/18/24 documented as of this encounter
--- OUTSIDE RECORDS SUMMARY | 2025-04-28 21:01 | XMS_ITS | Encounter Summary ---
Author Organization [employer] Address [address] [facility] [facility] [address] [place] [address] Care Team Providers Care Chairman And Ceo Name Role Phone Name, Henry BARTLETT Primary Care Provider [phone] Reason for Visit * Reason Onset Date Comments Med Refill No Show 04/20/2025 Pt no show for s ick on site Encounter Details Date Type Department Care Team (Late st Contact Info) Description 04/20/2025 Refill [facility] [address] [place], [place] [phone] Name, MD Henry [address] [place] [address] Chronic pain syndrome Social History Tobacco Use [...] encounter Miscellaneous Notes * Telephone Encounter - Elvia Dillard RN - 04/27/2025 4:22 PM EST Tc to pt via S ID: [id number] to do status check for no show for appointment. Pt reports that they originally sent down to the [facility] to be seen, pt then reported they watched people that arrived after them get seen before them. Pt reports they were advised to go to the blue team to be evaluated by an RN. Warehouse Order Picker and other team EDWARD Fonseca RN was not notified of this. Pt then stated they waited at the clinic for two hours. Warehouse Order Picker advised pt the appointment was at 10:30 am with Tony Nevarez no showed. Warehouse Order Picker advised if pt would like to be r/s and pt declined stating they have no transportation then disconnected the call. Pt is to follow up with PCP as needed. * Telephone Encounter - Yi Talamantes - 04/27/2025 10:56 AM EST Pt no show for sick on site documented in this encounter Plan of Treatment Upcoming Encounters Date Type Department Care Team (Late st Contact Info) Description 04/30/2025 9:30 AM EST Telemedicine [facility] MEDICINE [address] [place], [place] [phone] Suni Rodriguez RN 06/08/2025 9:30 AM EST Office Visit [facility] ADULT DENTAL [address] [place] [address] Clarisse Bar [address] [place], [place] [phone] 06/21/2025 10:30 AM EST Office Visit [facility] ADULT DENTAL [address] [place] [address] Holger Marquez DDS [address] [place], [place] [phone] 06/22/2025 3:15 PM EST Office Visit [facility] MEDICINE [address] [place] [phone] Name, MD Henry [address] [place], [place] [phone] documented as of this encounter Goals Goal [...] Weekly blood pressure task No Kidd, Rose Patient has chronic kidney disease Care Plan Patient has chronic kidney disease No Kidd, Rose Patient has chronic kidney disease Care Plan Patient has chronic kidney disease No Kidd, Rose Patient has chronic kidney disease Care Plan Patient has chronic kidney disease No Kidd Rose Patient has diabetic neuropathy Care Plan Patient has diabetic neuropathy No Kidd, Rose Patient has diabetic neuropathy Care Plan Patient has diabetic neuropathy No Bernabe Rose Patient has diabetic neuropathy Care Plan [...] Care Plan Weekly blood pressure task No Jj Haley, PRINTING SUPERVISOR Weekly blood pressure task Care Plan Weekly blood pressure task No GardnerJuanga, PRINTING SUPERVISOR Weekly blood pressure task Care Plan Weekly blood pressure task No GardnerJuanga, PRINTING SUPERVISOR Patient has chronic kidney disease Care Plan Patient has chronic kidney disease No Gardner, Haley, PRINTING SUPERVISOR Patient has chronic kidney disease Care Plan Patient has chronic kidney disease No GardnerJuanga, PRINTING SUPERVISOR Patient has chronic kidney disease Care Plan Patient has chronic kidney disease No GardnerJuanga, PRINTING SUPERVISOR Patient has diabetic neuropathy Care Plan Patient has diabetic neuropathy No Gardner, Haley, PRINTING SUPERVISOR Patient has diabetic neuropathy Care Plan Patient has diabetic neuropathy No Gardner, Haley, PRINTING SUPERVISOR Patient has diabetic neuropathy Care Plan Patient has diabetic neuropathy No GardnerJuanga, PRINTING SUPERVISOR Weekly blood pressure task Care Plan Weekly [...] Weekly blood pressure task No Suni Rodriguez, RN Patient has chronic kidney disease Care Plan Patient has chronic kidney disease No Suni Rodriguez, EDWARD Patient has chronic [...] Patient has diabetic neuropathy No Rocky Talamantes documented as of this encounter Visit [...] neuropathy 04/20/2025 Patient has diabetic neuropathy 04/20/2025 Assessment Noted Time PHQ-9 Depression Total Score: 24 025 11:00 AM EDT documented as of this encounter Care Teams Chairman And Ceo Relationship Specialty Start Date End Date Name, MD Henry [address] [place] [id number] PCP - General Family Medicine 08/19/15 Finn Galindo [employer] Tester [employer] 08/06/23 Mari Carrion Stave B[employer] EqualizerStrategic Marketing Associate 12/03/23 Chiquita 01/18/24 documented as of this encounter
--- OUTSIDE RECORDS SUMMARY | 2025-04-28 21:01 | XMS_ITS | Data Portability ---
Author Organization [facility] [employer] [facility], Main Office Address [address] [facility] [address] [facility], [address] [place] [address] Care Team Providers Care Second Hand Paper Machine Name Role Phone ROSEANN VAZQUEZ - 2ND FLOOR OTHER NAME, SAMEER Primary Care Provider [phone] Assessment Encounter Date Assessment Date Assessment LastModified by Organization Details LastModified Time 01/02/2024 01/02/2024 Spent 30 reviewing records, seeing pt, consulting with staff and documenting [email or web address] Not available 01/02/2024 20:36:57 01/09/2024 01/09/2024 Spent 30 reviewing records, seeing pt, consulting with staff and documenting [email or web address] Not available 01/09/2024 13:17:39 01/15/2024 01/15/2024 spent [...] Recorded Time Open fracture of left tibia 4655761779944 9105 Active 2023 Juliet Whittaker NP [address] [facility], [address], [place], [address] , [facility] [employer] 4 14:31:24 Insulin treated type 2 diabetes mellitus 668595986 Active 2023 Juliet Whittaker NP [address] [facility], [address], [place], [address], [facility] [employer] [facility] 4 14:31:36 Smoker 42395469 Active 2023 Juliet Whittaker NP [address] [facility], [address], [place], [address], [facility] [employer] [facility] 4 14:31:04 Hypertensiv e disorder 58863389 Active 2023 Juliet Whittaker NP [address], [place], [address], [facility] [employer] [facility] 4 14:31:42 Hyperlipide jessica 28242878 Active 2023 Juliet Whittaker NP [address], [place], [address], [facility] [employer] [facility] 4 14:31:08 Asthma 921969562 Active 2023 Juliet Whittaker NP [address] [facility], [address], [place], [address], [facility] [employer] [facility] 4 14:31:29 Gastroesoph ageal reflux disease without esophagitis 601621788 Active 2023 Juliet Whittaker NP [address] [facility], [address], [place], [address], [facility] [employer] [facility] 4 14:30:48 Depressive disorder 83441632 Active 2023 Juliet Whittaker NP [address] [facility], [address], [place], [address], [facility] [employer] [facility] 4 14:30:37 Migraine 90659955 Active 2023 Juliet Whittaker NP [address], [address], [place], [address], [facility] [employer] [facility] 4 14:30:45 Chronic pain 14679215 Active 2023 Juliet Whittaker NP [address], [place], [address], [facility] [employer] [facility] 4 14:30:20 Delirium 4577182 Active 2023 Juliet Whittaker NP [address], [address], [place], [address], [facility] [employer] [facility] 4 14:30:17 Anemia 811526128 Active 2023 Juliet Whittaker NP [address] [facility], [facility] [address], [place], [address], [facility] [employer] [facility] 4 14:30:42 Chronic constipatio n 494093394 Active 2023 Juliet Whittaker NP [address] [facility], [facility] [address], [place], [address], [facility] [employer] [facility] 4 14:30:09 Itching 815242679 Active 2023 Shantelle Henderson MD [address] [place] [address], [place], [address], [facility] [employer] [facility] 4 20:36:29 Problem Notes None recorded. Medical Equipment None Reported. Allergies Allergen ID Allergen Name Allergen Category Reaction Reaction Severity Criticality Documentation Date Start Date Code Code System Note Provider Name and Address Organization Details Recorded Time 61169 ibuprofen medicatio n Not available Not available Not available 11/13/2023 5640 RxNorm SPIKE CARRILLO NP [address], [place], [address], [facility] [employer] [facility] 4 15:12:37 89744 iodine medicatio n Not available Not available Not available 11/13/2023 5933 RxNorm SPIKE CARRILLO NP [address], [place], [address], [facility] [employer] [facility] 4 15:12:44 Medications Name Sig Start Date [...] cm 130/77 mm[Hg] Ethan Lepe MD [address] [facility], [facility] [address], [place], [address], [employer] 12/21/2023 16:38:09 Date Recorded Body height Heart rate Respiratory rate Body temperature Oxygen saturation Systolic And Diastolic Provider Name and Address Organization Details Last Updated DateTime 4 154.94 cm 74 /min 18 /min 98 [degF] 97 % 132/70 mm[Hg] SPIKE CARRILLO NP [address], [place], [address], [employer] 4 12:03:14 Date Recorded Body height Body mass index (BMI) Body weight Heart rate Respiratory rate Body temperature Oxygen saturation Systolic And Diastolic Provider Name and Address Organization Details Last Updated DateTime 4 154.94 cm 35.7 kg/m2 01704.9 6 g 70 /min 18 /min 98 [degF] 97 % 128/60 mm[Hg] Shantelle Henderson MD [address] [facility], [facility] [address], [place], [address], [employer] [facility] 4 17:41:59 Date Recorded Body height Heart rate Respiratory rate Body temperature Oxygen saturation Systolic And Diastolic Provider Name and Address Organization Details Last Updated DateTime 4 154.94 cm 88 /min 18 /min 97.3 [degF] 97 % 150/83 mm[Hg] SPIKE CARRILLO NP [address], [place], [address], [employer] [facility] 4 13:17:27 Date Recorded Body height Heart rate Respiratory rate Body temperature Oxygen saturation Provider Name and Address Organization Details Last Updated DateTime 4 154.94 cm 74 /min 18 /min 97.5 [degF] 97 % Juliet Whittaker NP [address], [address], [place], [address], [facility] [employer] [facility] 11:04:12 Social History Question Answer Notes LastModified by Organizat ion Details LastModified Time Tobacco Smoking Status Current Every Day Smoker SPIKE CARRILLO NP [address], [place], [address], [facility] [employer] [facility] 11/13/2023 15:19:45 Do You Have An Advance Directive? Yes Information not available 11/19/2023 What Is Your Code Status? DNR/DNI No Dialysis [email or web address] Information not available 11/13/2023 Where Do You Live? Apartment Alone Information not available 11/19/2023 Legal Guardian? No Informati on not available 11/19/2023 Do You Have A Medical Power Of Multiple Sclerosis Nurse? Yes Has HCP Not Invoked Information not available 11/19/2023 What Was The Date Of Your Most Recent Tobacco Screening? 11/19/2023 Information not available 11/19/2023 Do You Have An Out Of Hospital DNR? Yes [email or web address] Information not available 11/13/2023 What Is Your Relationship Status? Lives Locally And Is Supportive. (not Father Of Her Kids) Information not available 11/19/2023 How Much Tobacco Do You Smoke? 1 PPD [email or web address] Information not available 11/13/2023 Has Tobacco Cessation Counseling Been Provided? Yes She Says She Has Been Smoking 1 Cig/d Since Here And Will Try To Keep To That. Information not available 11/19/2023 On What Date Was Tobacco Cessation Counseling Provided? 11/19/2023 Information not available 11/19/2023 How Many Years Have You Smoked Tobacco? 48 [email or web address] Information not available 11/13/2023 Sex: Unknown Functional Status Question Answer Note LastModified by Organizat ion Details LastModified Time Do you use any illicit or recreational drugs? No Information not available 11/13/2023 Do you or have you ever used any other forms of tobacco or nicotine? No [email or web address] Information not available 11/13/2023 What is your level of alcohol consumption? None [email or web address] Information not available 11/13/2023 Mental Status None recorded. Family History Nothing Reported Notes:n/c Medical History No medical history recorded. Gynecological HistoryNo gynecological history recorded. Obstetrics History GPAL:G 0 P 0 0 0 0 Immunizations Vaccine Type Date Status Note Provider Nam e and Address Organization Details Recorded Time Hep B, unspecified formulation 5 completed Marietta Zachariah [facility] 11/20/2023 14:12:27 Hep B, unspecified formulation 6 completed [facility] 14:12:36 Hep B, unspecified formulation 6 completed Marietta Zachariah [facility] 11/20/2023 14:12:44 Hep B, unspecified formulation 3 completed Marietta Soni [facility] 11/20/2023 14:12:52 Hep B, unspecified formulation 3 completed Marietta Zachariah [facility] 11/20/2023 14:13:01 Hep B, unspecified formulation 9 completed Marietta Zachariah [facility] 11/20/2023 14:13:12 Tdap 9 completed Marietta Zachariah [facility] 11/20/2023 14:13:29 Td(adult) unspecified formulation 7 completed [facility] 11/20/2023 14:13:42 Td(adult) unspecified formulation 0 completed Marietta Zachariah [facility] 11/20/2023 14:13:50 Pneumococcal conjugate PCV20, polysaccharide [id number] conjugate, adjuvant, PF 4 completed Marietta Soni [facility] 11/20/2023 14:21:19 pneumococcal polysaccharide PPV23 5 completed Mariettaconrad Soni [facility] 11/20/2023 14:21:52 influenza, unspecified formulation 3 completed Marietta Soni [facility] 11/20/2023 14:22:14 influenza, unspecified formulation 3 completed Marietta Soni [facility] 11/20/2023 14:22:25 Hep A, unspecified formulation 5 completed Mariettaconrad Soni [facility] 11/20/2023 14:22:56 Hep A, unspecified formulation 6 completed [facility] 11/20/2023 14:23:07 SARS-COV-2 (COVID-19) vaccine, UNSPECIFIED 1 completed [facility] 11/20/2023 14:23:28 SARS-COV-2 (COVID-19) vaccine, UNSPECIFIED 1 completed [facility] 11/20/2023 14:23:41 SARS-COV-2 (COVID-19) vaccine, UNSPECIFIED 1 completed [facility] 11/20/2023 14:23:54 SARS-COV-2 (COVID-19) vaccine, UNSPECIFIED 3 completed [facility] 11/20/2023 14:24:04 SARS-COV-2 (COVID-19) vaccine, UNSPECIFIED 3 completed [facility] 11/20/2023 14:24:14 Past Encounters Encounter ID Performer Location Encounter Start Date Encounter Closed Date Diagnosis/Indication Diagnosis SNOMED-CT Code Diagnosis ICD10 Code Diagnosis IMO Codes Diagnosis Note [id number] SPIKE CARRILLO NP [address] [address] 11/13/2023 14:55:15 11/21/2023 12:53:23 Open fracture of left tibia 0821215143 0224584 S82.292B S/P ORIF at [facility] by Dr. Escobar. procedure well.Soft cast in [...] labs, CSM, painUpdate Ortho with concerns Delirium 0476708 F09 Problemati c in hosp.Impro rajiv with [...] calm her downMonito r closely Chronic pain 48286337 G8 9.29 Increasing oxy as above - 5 or 10 mg q4 hr prn(FYI uses percocet 7.5/325 tid prn at home)William nue other home meds:Dulox etine 60 mg bidLyrica 100 mg tidTizanid ine 4 mg q8 hr prnMonitor use and effect. Asthma 787800852 J45.90 9 Currently on:albuter ol MDI prnzyrtec 10 mg qdFlonase nasal spray qdBreo Ellipta 1 inh qdIncruse Ellipta 1 inh qdMonitor resp. sx. Insulin tr eated type 2 diabetes mellitus 918663375 Z79.4 Continue:C arb control dietLevemi r 30 units sq qdMetformi n 500 mg bidAdd lispro SSI tid Hypertensive disorder 38 023782 I10 Continue losartan 50 mg qdMonitor VS Hyperlipidemia 53860649 E78.5 Continue atorvastat in 20 mg qd Depressive disorder 3548 9007 F32.A Continue:W ellbutrin XL 150 mg qdDuloxeti ne 60 mg bidTrazodo ne 100 mg q HS Currently agitated, adding ativan prn x 14 d as above Gastroesop hageal reflux disease without esophagitis 389135338 K21.9 Continue:p epcid 20 mg q HSpantopra zole 40 mg bidMonitor GI sx. Anemia 566560258 D64.9 Continue Fe Gluc 324 mg qdMonitor CBC, S/S active bleed Migraine 52265739 G43.90 9 Continue sumatripta n 100 mg qd prn [id number] SHANNON CASTELLANO [address] [address] [place] [address] 11/15/2023 11:34:00 11/21/2023 13:27:05 Open fracture of left tibia 0460218388 5537903 S82.292B S/P ORIF at [facility] by Dr. Escobar. procedure well.Soft cast in [...] CSM, painUpdate Ortho with concerns Chronic pain 24225888 G8 9.29 Increasing oxy as above - 5 or 10 mg q4 hr prn(FYI uses percocet 7.5/325 tid prn at home)William nue other home meds:Dulox etine 60 mg bidLyrica 100 mg tidTizanid ine 4 mg q8 hr prnMonitor use and effect. Asthma 939816367 J45.90 9 Currently on:albuter ol MDI prnzyrtec 10 mg qdFlonase nasal spray qdBreo Ellipta 1 inh qdIncruse Ellipta 1 inh qdMonitor resp. sx. Insulin tr eated type 2 diabetes mellitus 809370726 Z79.4 Continue:C arb control dietLevemi r 30 units sq qdMetformi n 500 mg bidAdd lispro SSI tid Hypertensive disorder 38 861561 I10 Continue losartan 50 mg qdMonitor VS Hyperlipidemia 18413820 E78.5 Continue atorvastat in 20 mg qd Depressive disorder 1045 9007 F32.A Continue:W ellbutrin XL 150 mg qdDuloxeti ne 60 mg bidTrazodo ne 100 mg q HSmood is good today, she is pleasant Gastroesop hageal reflux disease without esophagitis 190051739 K21.9 Continue:p epcid 20 mg q HSpantopra zole 40 mg bidMonitor GI sx. [id number] Juliet Whittaker NP [address] [address] 11/18/2023 15:52:50 11/21/2023 14:49:22 Open fracture of left tibia 7514677874 6809682 S82.292B S/P ORIF at [facility] by Dr. Meadows with Soft cast in [...] to assess readiness and services Chronic pain 08579955 G8 9.29 oxy as above - 5 or 10 mg q4 hr prn, recently increased( FYI uses percocet 7.5/325 tid prn at home)William nue other home meds:Dulox etine 60 mg bidLyrica 100 mg tidTizanid ine 4 mg q8 hr prnMonitor use and effect. Asthma 020834892 J45.90 9 Currently on:albuter ol MDI prnzyrtec 10 mg qdFlonase nasal spray qdBreo Ellipta 1 inh qdIncruse Ellipta 1 inh qdMonitor resp. sx. Insulin tr eated type 2 diabetes mellitus 429850011 Z79.4 Continue:C arb control dietLevemi r 30 units sq qdMetformi n 500 mg bidAdd lispro SSI tid Hypertensive disorder 38 924767 I10 Continuelo sartan 50 mg qdMonitor VS Depressive disorder 5721 9007 F32.A very upset todayConti nue:Wellbu marisa XL 150 mg qdDuloxeti ne 60 mg bidTrazodo ne 100 mg q HSmonitor mood Gastroesop hageal reflux disease without esophagitis 458385024 K21.9 Continue:p epcid 20 mg q HSpantopra zole 40 mg bidMonitor GI sx. Smoker 83430706 F17.200 pt refuses nicotine patch11/17 startnicor ette gum 2 mg po q 1-2 hoursmonit or and encourage quitting Acute constipation 20263 9006 K59.00 11/17 states no bm in a weekdc Miralax bid for bowelssenn a s 1 tab po dailymom 60 cc po x 1 todaymonit or [id number] Shantelle Henderson MD [address] [address] [place] [address] 11/19/2023 16:09:47 11/21/2023 15:41:04 Open fracture of left tibia 4745152219 7319087 S82.292B Recovering from ORIF for open fx [...] 11/24 at 10 AM as planned. Smoker 82986924 F17.200 Doing well with 1 cig/dayCon tinue nicorette gum 2 mg po q 1-2 hours when needed.Con tinue to encourage cessation. Chronic pain 09134057 G8 9.29 From neuropathy and back pain.William nue meds as above and duloxetine 60 mg BID, Lyrica 100 mg TID and tizanidine 4 mg q 8 hrs prnMonitor use and effect. Hypertensive disorder 38 755277 I10 Only 2 BPs checked since here.Will order daily.Cont inue losartan 50 mg qdMonitor BP and labs. Depressive disorder 8445 9007 F33.8 Mood good todayConti nue Wellbutrin XL 150 mg qd, duloxetine 60 mg BID and trazodone 100 mg qhs.Also started on lorazepam 0.5 mg q 6 hrs prn for agitation. Monitor mood.Consu lt psych prn Gastroesop hageal reflux disease without esophagitis 669765239 K21.9 No current sxs.Contin ue famotidine 20 mg qd and pantoprazo le 40 mg qd. (written as BID on d/c summary, but qd in PCC, will leave for now and monitor sxs).Monit or GI sx. Chronic constipation 236 543861 K59.09 She tells me this is a chronic problem and in [place] gave her something sweet that worked well. Figured out it was lactulose. We discuss that that is something we usually use later on and try gentler stuff first.Will increase senna to 2 tabs qhs and continue prn MOM.Monito r bowel function. Chronic ob structive pulmonary disease 02798458 J44.89 More likely COPD than asthma, although may be crossover syndrome.N o current sxs.Contin ue Breo ellipta 200/25 mcg qd, Incruse ellipta 62.5 mcg qd, cetirizine 10 mg qd, fluticason e nasal spray 2 sprays in each nostril qd, and albuterol MDI 2 puffs q 6 hrs prn.Monito r resp. 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 Anemia 084004562 D64.9 Acute on chronic.Co ntinue FeSO4 325 mg qd.Monitor labs. Migraine 33071558 G43.80 9 Had a migraine inpt, none since here.William nue sumatripta n 100 mg qd prn.Also on topiramate 50 mg BID and riboflavin 400 mg qd per d/c med list, but not in PCC, added.Amina tor sxs. [id number] Juliet Whittaker NP [facility] [address] [place] [address] 11/22/2023 08:21:02 2023 15:10:12 Open fracture of left tibia 3089977002 1603056 S82.292B Recovering from ORIF for open fx [...] 10 AM as planned. Chronic constipation 236 111693 K59.09 chronic problemrep orts having bowel movementsc ontdocusat e 100 mg po bidsenna-s 2 tabs qhs and continue prn MOM.Monito r bowel function. Smoker 80140085 F17.200 Doing well with 1 cig/dayCon tnicorette gum 2 mg po q 1-2 hours prnencoura ge cessation. Chronic pain 21373964 G8 9.29 From neuropathy and back pain.Contm eds as above and duloxetine 60 mg BIDLyrica 100 mg TIDtizanid ine 4 mg q 8 hrs prnMonitor use and effect.see ms she has refused a few doses of lyrica but denies this Chronic ob structive pulmonary disease 62869523 J44.89 stableNo current sxs.Contin ueBreo ellipta 200/25 mcg qd, Incruse ellipta 62.5 mcg qd, cetirizine 10 mg qd, fluticason e nasal spray 2 sprays in each nostril qd, and albuterol MDI 2 puffs q 6 hrs prn.Monito r resp. 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 (written as BID on d/c summary, but qd in PCC, will leave for now and monitor sxs).Monit or GI sx. Anemia 598671602 D64.9 Acute on chronic.Co ntinueFeSO 4 325 mg qd.Monitor labs. Dysuria 69056984 R30.0 pt had kenny removed on 11/19, no bladder scan available but urinating good amounts per pt and no distention has scant bleeding per pt and has some11/21 urinalysis with c & s [id number] Juliet Whittaker NP [facility] [address] [address] 11/25/2023 14:11:11 2023 15:32:35 Open fracture of left tibia 3669723870 3286237 S82.292B Recovering from ORIF for open fx [...] F/U with ortho in 6 weeks Anemia 195561489 D64.9 Acute on chronic.Co ntinueFeSO 4 325 mg qd.Monitor labs. Smoker 50075560 F17.200 Doing well with 1 cig/day now request to quit totally and would like patch 11/24 dc nicorette gum 2 mg po q 1-2 hours prn11/24 start nicotine patch 14 transderma l q 24 hoursencou rage cessation. Chronic pain 63393006 G8 9.29 From neuropathy and back pain.Contm eds as aboveanddu loxetine 60 mg BIDLyrica 100 mg TIDtizanid ine 4 mg q 8 hrs prnMonitor use and effect.see ms she has refused a few doses of lyrica but denies this [id number] Juliet Whittaker NP [address] [address] 11/26/2023 12:25:38 2023 16:07:03 Open fracture of left tibia 0446539356 6885874 S82.292B Recovering from ORIF for open fx [...] F/U with ortho in 6 weeks Anemia 567091475 D64.9 stableAcut e on chronic.Co ntinueFeSO 4 325 mg qd.Monitor labs. Smoker 12540362 F17.200 Doing well with 1 cig/day now request to quit totally and would like patch 11/24 dc nicorette gum 2 mg po q 1-2 hours prn11/24 start nicotine patch 14 transderma l q 24 hours11/25 seems happy with patch todayencou rage cessation. Chronic pain 37499042 G8 9.29 From neuropathy and back pain.Contm eds as aboveanddu loxetine 60 mg BIDLyrica 100 mg TIDtizanid ine 4 mg q 8 hrs prnMonitor use and effect.see ms she has refused a few doses of lyrica but denies this Type 2 kiarra betes mellitus 98549059 E11.42 E11.21 BS improving with increased dosingWith neuropathy and nephropath y.11/21 increase Levemir 30 units sq qd to 34 units qd, contmetfor min 500 mg BID and SSI.Pain meds as above for neuropathy .Sugars have frequently 99-270s hereNo recent HgA1Cs found in any hospital system, most recent 2020.monit or for adjustment s Depressive disorder 3611 3244 F33.8 Mood good todayConti nueWellbut rin XL 150 mg qd, duloxetine 60 mg BID and trazodone 100 mg qhs.11/25 dc for nonuse--lo razepam 0.5 mg q 6 hrs prn for agitation until 11/26 as rehab has been challengin g for her.Monito r mood.Consu lt psych prn Gastroesop hageal reflux disease without esophagitis 491643784 K21.9 No current sxs.Contin uefamotidi ne 20 mg qdpantopra zole 40 mg qd. (written as BID on d/c summary, but qd in PCC, will leave for now and monitor sxs).Monit or GI sx. [id number] SPIKE CARRILLO NP [address] [place] [address] 12/03/2023 10:34:04 12/04/2023 20:41:13 Open fracture of left tibia 3243051252 0625899 S82.292B Recovering from ORIF for open fx [...] due to open woundMonit or Depressive disorder 9158 9007 F33.8 Mood good today, no agitation or behaviors. ContinueWe llbutrin XL 150 mg qd, duloxetine 60 mg BID and trazodone 100 mg qhs.11/25 dc for nonuse--lo razepam 0.5 mg q 6 hrs prn for agitation until 11/26 as rehab has been challengin g for her.Monito r mood.Consu lt psych prn Anemia 553939915 D64.9 stableAcut e on chronic.Co ntinueFeSO 4 325 mg qd.Monitor labs. Smoker 30118224 F17.200 Waxes and wanes re: smoking.Cu rrently back on the nicoderm patch.Enco urage smoking cessation Chronic pain 25851183 G8 9.29 From neuropathy and back pain.Contm eds as aboveanddu loxetine 60 mg BIDLyrica 100 mg TIDtizanid ine 4 mg q 8 hrs prnMonitor use and effect. Type 2 kiarra rachel mellitus 84524054 E11.42 E11.21 BS controlled , most readings 100s, occ. 200s.With neuropathy and nephropath y.On 11/21, increased Levemir from 30 units to 34 units qd, continueCo ntinue metformin 500 mg BID and SSI.Pain meds as above for neuropathy .Monitor Gastroesop hageal reflux disease without esophagitis 050142301 K21.9 No current sxs.Contin uefamotidi ne 20 mg qdpantopra zole 40 mg qd. (written as BID on d/c summary, but qd in PCC, will leave for now and monitor sxs).Monit or GI sx. [id number] Juliet Whittaker NP [address] [address] 12/11/2023 08:34:56 12/13/2023 13:43:14 Open fracture of left tibia 9928140958 1596088 S82.292B Recovering from ORIF for open fx of left tib-fib with NWB to LLE repaired on 11/10/[address] Meadows at [facility] 11/29 S/P recent hosp. due to increased [...] or for s/s of infection Depressive disorder 8126 9771 F33.8 Mood good today, no agitation or behaviors. ContinueWe llbutrin XL 150 mg qdduloxeti ne 60 mg BIDtrazodo ne 100 mg qhs.Monito r mood.Consu lt psych prn Anemia 825084880 D64.9 stableAcut e on chronic.Co ntFeSO4 325 mg qd.Monitor labs weekly Smoker 83638785 F17.200 Waxes and wanes re: smoking.Cu rrently back on the nicoderm patchwill leave patch on JUL as she continues to change her mind3-10 minutes spent on smoking cessation counseling Encourage smoking cessation Chronic pain 43288788 G8 9.29 From neuropathy and back pain.Conts ee meds aboveand contduloxe richie 60 mg BIDLyrica 100 mg TIDtizanid ine 4 mg q 8 hrs prnMonitor use and effect. Type 2 kiarra betes mellitus [id number] E11.42 E11.21 BS controlled , most readings 100s, occ. 200s.With neuropathy and nephropath y.On 11/21, increased Levemir from 30 units to 34 units qd, with improved BSContinue metformin 500 mg BID and SSI.Pain meds as above for neuropathy .Monitor Gastroesop hageal reflux disease without esophagitis 438940958 K21.9 No current sxs.Contfa motidine 20 mg qdpantopra zole 40 mg qdMonitor GI sx. Chronic constipation 236 460418 K59.09 chronic problemrep orts having bowel movementsc ontdocusat e 100 mg po bidsenna-s 2 tabs qhs and continue prn MOM.Monito r bowel function. Chronic ob structive pulmonary disease 15705792 J44.89 stableNo current sxs.Contin ueBreo ellipta 200/25 mcg qd, Incruse ellipta 62.5 mcg qd, cetirizine 10 mg qd, fluticason e nasal spray 2 sprays in each nostril qd, and albuterol MDI 2 puffs q 6 hrs prn.Monito r resp. status Hypertensive disorder 38 915651 I10 slightly elevated but improvingw ill monitor as likely slightly elevated prior with pain and prior to medsContin uelosartan 50 mg qdMonitor BP and labs. [id number] Juliet Whittaker NP [address] [address] 12/18/2023 09:58:36 12/24/2023 14:47:22 Open fracture of left tibia [id number] 0055396 S82.292B Recovering from ORIF for open fx of left tib-fib with NWB to LLE repaired on 11/10/[address] Meadows at [facility] of note: 11/29 S/P recent hosp. due [...] qhs.Monito r mood.Consu lt psych prn Anemia 740013374 D64.9 stableAcut e on chronic.Co ntFeSO4 325 mg qd.Monitor labs weekly Smoker 76756952 F17.200 Waxes and wanes re: smoking.Cu rrently back on the nicoderm patchwill leave patch on JUL as she continues to change her mind3-10 minutes spent on smoking cessation counseling Encourage smoking cessation Chronic pain 52446935 G8 9.29 From neuropathy and back pain.Conts ee meds aboveand contduloxe richie 60 mg BIDLyrica 100 mg TIDtizanid ine 4 mg q 8 hrs prnMonitor use and effect. Type 2 kiarra betes mellitus 74965997 E11.42 E11.21 BS controlled , most readings 100s, occ. 200s.With neuropathy and nephropath y.On 11/21, increased Levemir from 30 units to 34 units qd, with improved BSContinue metformin 500 mg BID and SSI.Pain meds as above for neuropathy .Monitor Gastroesop hageal reflux disease without esophagitis 835792975 K21.9 No current sxs.Contfa motidine 20 mg qdpantopra zole 40 mg qdMonitor GI sx. Chronic constipation 236 309482 K59.09 chronic problemrep orts having bowel movementsc ontdocusat e 100 mg po bidsenna-s 2 tabs qhs and continue prn MOM.Monito r bowel function. Chronic ob structive pulmonary disease 27149417 J44.89 stableNo current sxs.Contin ueBreo ellipta 200/25 mcg qd, Incruse ellipta 62.5 mcg qd, cetirizine 10 mg qd, fluticason e nasal spray 2 sprays in each nostril qd, and albuterol MDI 2 puffs q 6 hrs prn.Monito r resp. status Hypertensive disorder 38 271661 I10 slightly elevated but improvingw ill monitor as likely slightly elevated prior with pain and prior to medsContin uelosartan 50 mg qdMonitor BP and labs. [id number] Ethan Lepe MD [address] [address] 12/21/2023 16:37:35 12/24/2023 15:57:18 Cellulitis of left lower limb 7196030949 0361507 L03.116 concern for infection with altered mental statusstat CBC with diff, blood cultures x 2, bmp, UAafter labs drawn startkefle x 500 mg qid x 10 daysprobio tic x 2 weeksto ED for decompensa tion Altered mental status 41 1892274 G93.41 see above [id number] SPIKE CARRILLO NP [address] [address] 12/31/2023 11:32:41 01/03/2024 15:58:35 Metabolic encephalopathy 44432950 G93.41 Altered MS - treated for infection and concern of serotonin syndrome.S till with altered MS upon return.See n by Psych at [facility] - meds adjusted - currently off cymbalta and wellbutrin and trazodone. Pregabalin and topamax continued. Recommend outpt. psych follow up re: encephalop athy and ? restart of cymbalta and wellbutrin .Will refer to Psych provider here, continue meds, continue to monitor behaviors and MS. Cellulitis of left lower limb 1910141002 9179120 L03.116 Initially treated with IV Vanco, ceftriaxon e, and ampicillin .Seen by ID, abx. changed to cefepime and doxycyclin e, completed 10 days of tx. with improvemen t in cellulitis .Continue to monitor LLE, VS, and labs.CBC, BMP x 1 in am, then q mond. x 2 Insulin tr eated type 2 diabetes mellitus 801469471 Z79.4 Levemir stopped in hosp., BS stayed mostly euglycemic Upon discharge, recommende d metformin 500 mg qd, lispro SSIContinu e Carb control dietMonito r BS and need to adjust meds. Open fract ure of left tibia [id number] 4727066 S82.292B Recovering from ORIF for open fx of left tib-fib with NWB to LLE Continue:N WB per most recent note from Dr. Meaodws in hosp.Fract ure boot when OOBPT OT eval and tx.lovenox 40 mg subq qd x 28d for DVT prophylaxi s complete (end date 12/11)APAP 1000 mg TIDOxycodo ne 5 mg q 4 hrs prn for pain, still using, monitor (was on 7.5 mg percocet at home prior to fx)Follow up with Ortho as sched. Delirium 8004447 F09 Problemati c during first hosp.Impro rajiv with pain mgmt, fracture repair, and tx. of urinary retention. Hosp. meds reviewed, appears ativan used in hosp. during agitated event. Continues with behaviors and agitation; see above POC Depressive disorder 2339 3899 F33.8 See above, meds adjusted in hosp. [...] prn Gastroesop hageal reflux disease without esophagitis 263816691 K21.9 No current sxs.Contin uefamotidi ne 20 mg qdpantopra zole 40 mg qd. (written as BID on d/c summary, but qd in PCC, will leave for now and monitor sxs).Monit or GI sx. Hypertensive disorder 38 207645 I10 Continue losartan 50 mg qdMonitor VS Hyperlipidemia 06894643 E78.5 Continue atorvastat in 20 mg qd Migraine 75642246 G43.80 9 Continue sumatripta n 100 mg qd prn Chronic pain 88813844 G8 9.29 From neuropathy and back pain.dulox etine 60 mg BID stopped in hosp. due to encephalop athy.Remai ns on:Lyrica 100 mg TIDAPAP prntizanid ine 4 mg q 8 hrs prnMonitor use and effect. Chronic constipation 236 618632 K59.09 continue senna s 2 q HS and colace 100 mg bidadjust prn Asthma 441220673 J45.90 9 Currently on:albuter ol MDI prnzyrtec 10 mg qdFlonase nasal spray qdBreo Ellipta 1 inh qdIncruse Ellipta 1 inh qdMonitor resp. sx. Anemia 397544252 D64.9 stableAcut e on chronic.Co ntinueFeSO 4 325 mg qd.Monitor labs. [id number] Shantelle Henderson MD [address] [address] 01/02/2024 17:02:34 01/06/2024 10:29:53 Metabolic encephalopathy 65068679 G93.41 With numerous med changes inpt due to concern about seratonin syndrome.S he continues to be confused at times and with some agitation as detailed in rehab notes.Cont inue topiramate 50 mg BID.Will likely need some of other meds restarted also, but will await psych consult.Mo nitor mood and behaviors. Cellulitis of left lower limb 4232808130 6372876 L03.116 Completed tx inpt.Monit or for recurrence . Insulin tr eated type 2 diabetes mellitus 837281426 E11.42 With neuropathy .Levemir stopped in hosp.BS have been <200 since return.Con tinue metformin 500 mg qd and SSIContinu e Lyrica 100 mg TID and topiramate 50 mg BID for neuropathy .Continue Carb control dietMonito r fingerstic ks TID and restart Levemir if needed. Open fract ure of left tibia 1855614480 2737725 S82.292B Recovering from ORIF for open fx [...] above. Gastroesop hageal reflux disease without esophagitis 305185090 K21.9 No current sxs.Contin ue famotidine 20 mg qd and pantoprazo le 40 mg qd.Monitor GI sx. Hypertensive disorder 38 667776 I10 Remains in good control on losartan 50 mg qdMonitor BP and labs. Hyperlipidemia 41459096 E78.49 Continue atorvastat in 20 mg qdMonitor labs yearly. Migraine 96423891 G43.80 9 Continue sumatripta n 100 mg qd prn.Also on topiramate 50 mg BID and riboflavin 400 mg qdMonitor sxs Chronic pain 42947856 G8 9.29 As above and tizanidine 4 mg q 8 hrs prnMonitor sxs Chronic constipation 236 366182 K59.09 Continue bowel meds as ordered.Mo nitor bowel function. Anemia 655891458 D64.89 StableCont inue FeSO4 325 mg qd.Monitor labs. Chronic ob structive pulmonary disease 12346976 J44.89 No current sxs.Contin ue Breo ellipta 200/25 mcg qd, Incruse ellipta 62.5 mcg qd, cetirizine 10 mg qd, fluticason e nasal spray 2 sprays in each nostril qd, and albuterol MDI 2 puffs q 6 hrs prn.Monito r resp. status Itching 182190207 L29.9 Already on cetirizine 10 mg qd, will add diphenhydr amine 25 mg q 4 hrs prn.Monito r for oversedati on or urinary retention. [id number] SPIKE CARRILLO NP [address] [address] 01/09/2024 13:16:26 01/15/2024 11:32:24 Metabolic encephalopathy 62081818 G93.41 With numerous med changes inpt due to concern about seratonin syndrome.S he continues to be confused at times and with some agitation as detailed in rehab notes but overall mood is pleasant and cooperativ e.Continue topiramate 50 mg BID.Will likely need some of other meds restarted also, but will await psych consult.Mo nitor mood and behaviors. Cellulitis of left lower limb 2399476434 5656543 L03.116 Completed tx inpt.Monit or for recurrence . Insulin tr eated type 2 diabetes mellitus 690288548 E11.42 With neuropathy .Levemir stopped in hosp.BS have been <200 since return.Con tinue metformin 500 mg qd and SSIContinu e Lyrica 100 mg TID and topiramate 50 mg BID for neuropathy .Continue Carb control dietMonito r fingerstic ks TID and restart Levemir if needed. Open fract ure of left tibia 9010612158 0229963 S82.292B Recovering from ORIF for open fx of left tib-fib continuing with NWB to LLESeen by Ortho 01/05, now WBAT with walker, and ok to shower with tub bench without boot.Next f/u 10/7Contin ue APAP 650 mg q 4 hrs prn pain Depressive disorder 3548 9007 F33.8 As above.Refe rred to Psych for continued mgmt. Gastroesop hageal reflux disease without esophagitis 340607708 K21.9 No current sxs.Contin ue famotidine 20 mg qd and pantoprazo le 40 mg qd.Monitor GI sx. Hypertensive disorder 38 414794 I10 Remains in good control on losartan 50 mg qdMonitor BP and labs. Hyperlipidemia 38489363 E78.49 Continue atorvastat in 20 mg qdMonitor labs yearly. Migraine 53452095 G43.80 9 Continue sumatripta n 100 mg qd prn.Also on topiramate 50 mg BID and riboflavin 400 mg qdMonitor sxs Chronic pain 13684940 G8 9.29 As above and tizanidine 4 mg q 8 hrs prnMonitor sxs Chronic constipation 236 640022 K59.09 Continue bowel meds as ordered.Mo nitor bowel function. Chronic ob structive pulmonary disease 67067167 J44.89 No current sxs.Contin ue Breo ellipta 200/25 mcg qd, Incruse ellipta 62.5 mcg qd, cetirizine 10 mg qd, fluticason e nasal spray 2 sprays in each nostril qd, and albuterol MDI 2 puffs q 6 hrs prn.Monito r resp. status Anemia 986662039 D64.89 StableCont inue FeSO4 325 mg qd.Monitor labs. Itching 367703934 L29.9 Already on cetirizine 10 mg qd, will add diphenhydr amine 25 mg q 4 hrs prn.Monito r for oversedati on or urinary retention. [id number] [facility] [address] 01/15/2024 11:02:23 01/17/2024 13:48:19 Metabolic encephalopathy 82961319 G93.41 With numerous med changes inpt due [...] wtih pcp Cellulitis of left lower limb 0986445803 8819564 L03.116 Completed tx inpt.and resolvedMo nitor for recurrence outpt with pcp Insulin tr eated type 2 diabetes mellitus 444345461 E11.42 With neuropathy .Levemir stopped in hosp.BS have been <200 since return.Con tinuemetfo rmin 500 mg bidLyrica 100 mg TIDtopiram ate 50 mg BID for neuropathy .Continue Carb control dietMonito r fingerstic ks TID and restart Levemir if needed. Open fract ure of left tibia 9884961555 7246620 S82.292B Recovering from ORIF for open fx [...] mgmt. Gastroesop hageal reflux disease without esophagitis 263822187 K21.9 No current sxs.Contin uefamotidi ne 20 mg qdpantopra zole 40 mg qd.Monitor GI sx. outpt with pcp Hypertensive disorder 38 142148 I10 Remains in good control and labile at timescontl osartan 50 mg qdMonitor BP and labs outpt Hyperlipidemia 76921055 E78.49 Continueat orvastatin 20 mg qdMonitor labs oupt with pcp Migraine 18610827 G43.80 9 Continuesu matriptan 100 mg qd prn.topira mate 50 mg BIDribofla francia 400 mg qdMonitor sxs outpt with pcp Chronic pain 86898597 G8 9.29 As above and tizanidine 4 mg q 8 hrs prnMonitor sxs outpt with pcp Chronic constipation 236 567773 K59.09 Continue bowel meds as ordered.Mo nitor bowel function outpt with pcp Chronic ob structive pulmonary disease 40068036 J44.89 No current sxs.Contin ueBreo ellipta 200/25 mcg qd, Incruse ellipta 62.5 mcg qd, cetirizine 10 mg qd, fluticason e nasal spray 2 sprays in each nostril qd, and albuterol MDI 2 puffs q 6 hrs prn.Monito r resp. status with pcp outpt Anemia 566666856 D64.89 StableCont inue FeSO4 325 mg qd.Monitor labs outpt with pcp Health Concerns Section Related Observation LastModified by Organization Detai ls LastModified Time None Recorded Concern Status LastModified by Organization Details LastModified Time None Recorded Advance Directives Directive Y: Payers Insurance Date Sequence Insurance Name Policy Number Policy Mantilla Covered Member ID Mantilla Member ID Guarantor Name 01/15/2024 1 [place]: [facility] Louisa Levin [id number] Louisa Levin Notes Date Note Type Note [...] site of lower wound Ethan Lepe MD [address] [place] [address], [address], [place], [address], [facility] [employer] 12/21/2023 16:44:18 4 text/html Louisa is seen today for readmission.She is a 63 yo lady, here at [facility] for rehab due to a left tibial fx, s/p ORIF. She was sent to [facility] 12/21/23 due to altered MS.Work up revealed [...] - home meds continued. She returned from [facility] 12/31/23 for continued care and rehab.Upon exam, [...] delirium.MOLST: DNR, DNI SPIKE CARRILLO NP [address] [facility], [address], [place], [address], [facility] [employer] 12/31/2023 12:54:50 4 text/html This is a [...] hx of delirium. Shantelle Henderson MD [address] [facility], [address], [place], [address], [employer] 01/02/2024 20:37:01 4 text/html Louisa is seen [...] hx of delirium. SPIKE CARRILLO, LANCE [address] [facility], [address], [place], [address], [facility] - [employer] 01/09/2024 13:33:32 4 text/html Louisa is a 62 yo lady admitted on 11/12 to [facility] from [facility] for continued care and rehab after a brief hosp. related to a fall with left tibial fx. Her PMH includes HTN, AODM, COPD, chronic pain, depression, insomnia, GERD, HLD, migraine, smoker, s/p bilateral TKRs, s/p ORIF left tib-fib 11/2023, recurrent fevers of unknown origin, hx of transaminitis, and hx of delirium. She initially presented to [facility] 11/10/23 after falling at home with residual [...] not restarted on d/c. While here at [facility]:She was last seen by Ortho 01/05 with [...] approximately 20 tablets. She was seen by neuro psych sales specialist here and recommends 3 mg po qhs, [...] s/s of infection. Juliet Whittaker, LANCE [address] [facility], [address], [place], [address], [facility] - [employer] 01/15/2024 11:54:12 OBGyn Episode No OBEpisode recorded.
--- OUTSIDE RECORDS SUMMARY | 2025-04-28 21:02 | XMS_ITS ---
Author Organization [employer] Address [address] [facility] 7t [place] [address] Care Team Providers Care Technician Biological Health Name Role Phone Name, Henry BARTLETT Primary Care Provider [phone] FACILITIES COORDINATOR Status:Enrolled (Active) Start date:06/14/2022 Enrollment date:06/14/2022 Enrollment reason:Identified using pharmacy data Current support & services provided:Tier 4 (FACILITIES COORDINATOR) Case Team Name Relationship Phone Suni Rodriguez RN(Responsible Staff) Registered Nu rse Continued Care and Services Coordination
--- OUTSIDE RECORDS SUMMARY | 2025-04-28 21:02 | XMS_ITS | Encounter Summary ---
Author Organization [employer] Address [address] [facility] 7t [place] [address] Care Team Providers Care Train Controller Name Role Phone Name, Henry BARTLETT Primary Care Provider [phone] Reason for Visit * Reason Comments Med Refill Encounter Details Date Type Department Care Team ([facility] Contact Info) Description 02/08/2023 Refill [facility] MED & PEDS [address] [place] [address] Name, MD Henry [address] [place] [address] Chronic pain syndrome Social History Tobacco Use [...] Upcoming Encounters Date Type Department Care Team ([facility] Contact Info) Description 04/30/2025 9:30 AM EST Telemedicine [facility] MEDICINE [address] [place] [phone] Suni Rodriguez RN 06/08/2025 9:30 AM EST Office Visit [facility] ADULT DENTAL [address] [place] [address], [place] [address] Clarisse Bar [address] [place], [place] [phone] 06/21/2025 10:30 AM EST Office Visit [facility] ADULT DENTAL [address] [place] [address] Holger Marquez DDS [address], [place] [phone] 06/22/2025 3:15 PM EST Office Visit [facility] MEDICINE [address], [place] [phone] Name, MD Henry Kishan [place], [place] [phone] documented as of this encounter Visit Diagnoses Diagnosis Chronic pain syndrome documented in this encounter Additional Health Concerns Assessment Noted Time PHQ-9 Depression Total Score: 6 09/14/19 23 9:53 AM EDT documented as of this encounter Care Teams Train Controller Relationship Specialty Start Date End Date Name, [place] [address] PCP - General Family Medicine 08/19/15 Finn Galindo Teamsite DeveloperTeamsite Developer 08/06/23 Mari Carrion SoubretteTeamsite Developer 12/03/23 Chiquita 01/18/24 documented as of this encounter
--- OUTSIDE RECORDS SUMMARY | 2025-04-28 21:02 | XMS_ITS | Encounter Summary ---
Author Organization [employer] Address [address] [facility] 7t [place] [address] Care Team Providers Care Iron Piler Name Role Phone Name, Henry BARTLETT Primary Care Provider [phone] Reason for Visit * Reason Onset Date Comments Medication Question 01/01/2023 pregabalin ( Lyrica) 50 MG capsule Encounter Details Date Type Department Care Team ([facility] st Contact Info) Description 01/01/2023 Telephone [facility] MEDICINE [address] [place], [place] [phone] Name, MD Henry [address] [place] [address] Medication Question (pregabalin (Lyrica) 50 MG capsule//) [...] to go back to100 mh. Patient speaks fijian. documented in this encounter Plan of Treatment Upcoming Encounters Date Type Department Care Team (Late st Contact Info) Description 04/30/2025 9:30 AM EST Telemedicine [facility] MEDICINE [address] [place] [address] Suni Rodriguez RN 06/08/2025 9:30 AM EST Office Visit [facility] ADULT DENTAL [address] [place] [address] Clarisse Bar [address] [place] [address] 06/21/2025 10:30 AM EST Office Visit [facility] ADULT DENTAL [address] [place] [address] Holger Marquez DDS [address] [place] [address] 06/22/2025 3:15 PM EST Office Visit [facility] MEDICINE [address] [place] [address] Henry Bernardo MD [address] [place] [address] documented as of this encounter Visit Diagnoses Not on filedocumented in this encounter Additional Health Concerns Assessment Noted Time PHQ-9 Depression Total Score: 6 09/14/19 23 9:53 AM EDT documented as of this encounter Care Teams Iron Piler Relationship Specialty Start Date End Date Henry Bernardo MD [address] [place] [address] PCP - General Family Medicine 08/19/15 Finn Galindo Roadway DesignerCustoms Verifier 08/06/23 Mari Carrion Nurse MidwifeCustoms Verifier 12/03/23 Chiquita 01/18/24 documented as of this encounter
--- OUTSIDE RECORDS SUMMARY | 2025-04-28 21:02 | XMS_ITS | Encounter Summary ---
Author Organization [employer] Address [address] [facility] 7t [place] [address] Care Team Providers Care Science And Operations Officer Name Role Phone Name, Henry BARTLETT Primary Care Provider Reason for Visit * Reason Comments Med Refill Encounter Details Date Type Department Care Team (Late st Contact Info) Description 11/19/2022 Refill [facility] MEDICINE [address] [place] [address] [phone] Name, MD Henry [address] [place] [address] [phone] Chronic pain syndrome Social History Tobacco Use [...] Info) Description 04/30/2025 9:30 AM EST Telemedicine [facility] MEDICINE [address] [place], [place] [phone] Suni Rodriguez, EDWARD 06/08/2025 9:30 AM EST Office Visit [facility] ADULT DENTAL [address] [place], [place] [phone] Clarisse Bar [address] [place] [address] 06/21/2025 10:30 AM EST Office Visit [facility] ADULT DENTAL [address] [place], [place] [phone] Holger Marquez DDS [address] [place], [place] [phone] 06/22/2025 3:15 PM EST Office Visit [facility] MEDICINE [address] [place] [address] Name, MD Henry [address] [place] [address] documented as of this encounter Visit Diagnoses Diagnosis Chronic pain syndrome documented in this encounter Additional Health Concerns Assessment Noted Time PHQ-9 Depression Total Score: 6 09/14/19 23 9:53 AM EDT documented as of this encounter Care Teams Science And Operations Officer Relationship Specialty Start Date End Date Name, MD Henry [address] [place] [address] PCP - General Family Medicine 08/19/15 Finn Galindo Riprap ManLamp Stack Developer 08/06/23 Mari Carrion Form Setter HelperLamp Stack Developer 12/03/23 Chiquita 01/18/24 documented as of this encounter
--- OUTSIDE RECORDS SUMMARY | 2025-04-28 21:02 | XMS_ITS | Encounter Summary ---
Author Organization [employer] Address [address] [facility] 7t [place] [address] Care Team Providers Care Child Monitor Name Role Phone Name, Henry BARTLETT Primary Care Provider [phone] Encounter Details Date Type Department Care Team (Late st Contact Info) Description 04/28/2025 Orders Only GENERIC EXTERNAL DATA DEPARTMENT Provider, Generic External Data Social History Tobacco Use Types Packs/Day Years [...] Description 04/30/2025 9:30 AM EST Telemedicine [facility] [address] [place] [address] 31291 Suni Rodriguez RN 06/08/2025 9:30 AM EST Office Visit [facility] [address] [place] [address] [phone] Clarisse Bar [address] [place] [address] [phone] 06/21/2025 10:30 AM EST Office Visit [facility] [address] [place] [address] [phone] Holger Marquez DDS [address] [place] [address] [phone] 06/22/2025 3:15 PM EST Office Visit [facility] [address] [place] [address] [phone] Name, MD Henry [address] [place] [address] [phone] documented as of this encounter Goals Goal Patient Goal Type Associated Problems Recent Progress Patient-Stated? Author Help patients manage their type 2 diabetes Care Plan Help patients manage their type 2 diabetes No Daryn Preston Weekly blood pressure task Care Plan Weekly [...] Plan Patient has chronic kidney disease No KiddJose dennyRose Patient has chronic kidney disease Care Plan Patient has chronic kidney disease No KiddOllie dennya Patient has chronic kidney disease Care Plan Patient has chronic kidney disease No KiddOlliea Patient has diabetic neuropathy Care Plan Patient has diabetic neuropathy No Kidd Rose Patient has diabetic neuropathy Care Plan Patient has diabetic neuropathy No KiddJoseRose Patient has diabetic neuropathy Care Plan Patient has diabetic neuropathy No KiddRose denny Weekly blood pressure task Care Plan Weekly [...] Weekly blood pressure task No Gardner, Haley, SCHOOL STANDARDS COACH Weekly blood pressure task Care Plan Weekly blood pressure task No Gardner, Haley, SCHOOL STANDARDS COACH Weekly blood pressure task Care Plan Weekly blood pressure task No Gardner, Haley, SCHOOL STANDARDS COACH Patient has chronic kidney disease Care Plan Patient has chronic kidney disease No Gardner, Haley, SCHOOL STANDARDS COACH Patient has chronic kidney disease Care Plan Patient has chronic kidney disease No Gardner, Haley, SCHOOL STANDARDS COACH Patient has chronic kidney disease Care Plan Patient has chronic kidney disease No Gardner, Haley, SCHOOL STANDARDS COACH Patient has diabetic neuropathy Care Plan Patient has diabetic neuropathy No Gardner, Haley, SCHOOL STANDARDS COACH Patient has diabetic neuropathy Care Plan Patient has diabetic neuropathy No Gardner, Haley, SCHOOL STANDARDS COACH Patient has diabetic neuropathy Care Plan Patient has diabetic neuropathy No Gardner, Haley, SCHOOL STANDARDS COACH Weekly blood pressure task Care Plan Weekly [...] Care Plan Patient has diabetic neuropathy No Sanjuaniat Dhaliwal [place] Patient has diabetic neuropathy Care [...] Care Plan Weekly blood pressure task No Colon Loly Rosa Weekly blood pressure task Care Plan Weekly blood pressure task No Colon Loly Rosa Patient has chronic kidney disease Care Plan Patient has chronic kidney disease No Colon Loly Rosa Patient has chronic kidney disease Care Plan Patient has chronic kidney disease No Colon Loly Rosa Patient has chronic kidney disease Care Plan Patient has chronic kidney disease No Colon Loly Rosa Patient has diabetic neuropathy Care Plan Patient has diabetic neuropathy No Colon Moe Loly Patient has diabetic neuropathy Care Plan Patient has diabetic neuropathy No Joe Moe Loly Patient has diabetic neuropathy Care Plan Patient has diabetic neuropathy No Joe Moe Loly documented as of this encounter Procedures Procedure Name Priority Date/Time Associated Diagnosis Comments TSH W/REFLEX TO FT4 Routine 04/28/2025 5 :41 PM EST SARS COV2/INFLUENZA A/B AND RSV RNA QL NAAT Routine 04/28/2025 5:41 PM EST CBC WITH AUTO DIFFERENTIAL Routine 04/28/2025 2:06 PM EST PROTHROMBIN TIME-INR Routine 04/28/2025 2:06 PM EST TYPE AND SCREEN Routine 04/28/2025 2:06 PM EST MAGNESIUM Routine 04/28/2025 2:06 PM EST COMPREHENSIVE METABOLIC PANEL Routine 04/28/2025 2:06 PM EST documented in this encounter Results * SARS-CoV-2 RNA, Influenza A/B, and RSV RNA, Ql NAAT (04/28/2025 5:41 PM EST) Influenza A PCR NEGATIVE Negative [facility] Influenza B PCR NEGATIVE Negative [facility] Resp Syncy Virus RNA Qual PCR NEGATIVE Negative [facility] SARS COV2 PCR NEGATIVE Negative [facility] Comment:All test results mus t be correlated with clinical findings.Negative results do not preclude SARS-CoV2, influenza Avirus, influenza B virus and/or RSV infectionand should not be used as the sole basis for treatment orother patient management decisions. Negative results must becombined with clinical observations, patient history, andepidemiological information.This test has not been evaluated for monitoring treatment ofinfection.This test has been authorized by the FDA under an EmergencyUse Authorization (EUA) for use by authorized laboratories.Testing performed on the [employer] utilizingreal-time RT-PCR.All SARS CoV2 and positive influenza A/B results arereported to [facility]. 04/28/2025 5:41 PM EST 04/28/2025 5:47 PM EST Generic External Data Provider LAB MICROBIOLOGY - GENERAL ORDERABLES Final Result Performing Organization Address [facility] de Phone Number [facility] [address] [place] [address] [phone] * TSH with Reflex to Free T4 (04/28/2025 5:41 PM EST) TSH reflex Free T4 0.71 0.32 - 4.0 uIU/mL [facility] 04/28/2025 5:41 PM EST 04/28/2025 5:47 PM EST Generic External Data Provider LAB BLOOD ORDERAB LES Final Result Performing Organization Address [facility] de Phone Number [facility] [address] [place] [address] [phone] * Type and screen (04/28/2025 2:06 PM EST) Blood Type ON [facility] Antibody Screen NEGATIVE [facility] 04/28/2025 2:06 PM EST 04/28/2025 2:18 PM EST Generic External Data Provider LAB BLOOD BANK TE ST ORDERABLES Final Result Performing Organization Address [facility] de Phone Number [facility] [address] [place] [address] [phone] * Magnesium (04/28/2025 2:06 PM EST) Magnesium 1.6 1.6 - 2.6 mg/dL [facility] 04/28/2025 2:06 PM EST 04/28/2025 2:15 PM EST us Generic External Data Provider LAB BLOOD ORDERAB LES Final Result [facility] [address] [place] [phone] [phone] * (ABNORMAL) Comprehensive Metabolic Panel (04/28/2025 2:06 PM EST) Sodium 140 135 - 145 mmol/L [facility] Potassium 4.7 3.3 - 5.1 mmol/L [facility] Chloride 108 96 - 108 mmol/L [facility] Carbon Dioxide 23 22 - 29 mmol/L [facility] Anion Gap 14 12 - 20 [facility] Urea Nitrogen (BUN) 24(H) 9 - 16 mg/dL [facility] Creatinine, Serum 1.44(H) 0.5 - 1.4 mg/dL [facility] Creatinine Clr Calc Pharmacy 40.0 [facility] Comment:Provided height and weight: 160.02 cm,83.915 kg.eGFR (calculated from the MDRD study equation) and eCrCl(calculated from the Cockcroft-Gault equation) are based ondifferent parameters and may not yield comparable results.If eCrCl result is absurd, please check patient'sheight/weight. Estimated Glomerular Filt Rate 37 [facility] Comment:Chronic Kidney Disea se: Estimated GFR < 60 mL/min/1.60o1Xoqldb Kidney Disease: Estimated GFR < 15 mL/min/1.73m2 Glucose 81 60 - 115 mg/dL [facility] Calcium 9.8 8.4 - 10.2 mg/dL [facility] Bilirubin, Total 0.3 0.0 - 1.0 mg/dL [facility] Aspartate Amino Transferase 20 5 - 31 U/L [facility] Alanine Aminotransferase 12 0 - 31 U/L [facility] Total Protein 8.0 6.5 - 8.0 g/dL [facility] Albumin Level 4.8 3.5 - 5.0 g/dL [facility] Alkaline Phosphatase 76 39 - 117 U/L [facility] 04/28/2025 2:06 PM EST 04/28/2025 2:15 PM EST Generic External Data Provider LAB BLOOD ORDERAB LES Final Result Performing Organization Address [facility] Co de Phone Number [facility] [address] [place] [address] [phone] * Prothrombin Time-INR (04/28/2025 2:06 PM EST) Pathologist [facility] Prothrombin Time 13.5 11.2 - 13.5 SEC [facility] INTERNATIONAL NORM RATIO 1.1 0.9 - 1.1 [facility] Comment:INTERNATIONAL NORMAL IZED RATIO (INR) REFERENCE RANGES Reference RangeFor patients not on anticoagulant therapy: 0.9 - 1.1INR ranges for oral anticoagulanttherapy:For prevention and treatment of venous thrombosis and pulmonary embolism: 2.0 - 3.0For acute myocardial infarction with aspirin therapy: 2.0 - 3.0For acute myocardial infarction without aspirin therapy: 3.0 - 4.0For patients with mechanical prosthetic heart valves: 2.5 - 3.5 04/28/2025 2:06 PM EST 04/28/2025 2:15 PM EST Generic External Data Provider LAB BLOOD ORDERAB LES Final Result Performing Organization Address [facility] Co de Phone Number [facility] [address] [place] [address] [phone] * (ABNORMAL) CBC auto differential (04/28/2025 2:06 PM EST) White Blood Count 7.6 4.8 - 10.8 X10*3/uL [facility] Red Blood Count 4.45 4.20 - 5.50 X10*6/uL [facility] Hemoglobin 11.7(L) 12.0 - 16.0 g/dl [facility] Hematocrit 38.1 37.0 - 47.0 % [facility] Mean Corpuscular Volume 85.6 80.0 - 98.0 fL [facility] Mean Corpuscular Hemoglobin 26.3(L) 27.0 - 33.0 pg [facility] Mean Corpuscular HGB Conc 30.7(L) 31.0 - 35.0 g/dl [facility] Red Cell Distribution Width 14.4 11.0 - 16.0 % [facility] Platelet Count 189 160 - 400 X10*3/uL [facility] Mean Platelet Volume 10.8 9.4 - 12.3 fL [facility] Neutrophils Percent Auto 71.2 45 - 73 % [facility] Imm Gran Pct Auto 0.3 0.0 - 0.4 % [facility] Lymphocytes Percent Auto 19.2(L) 20 - 40 % [facility] Monocytes Percent Auto 7.6 2 - 11 % [facility] Eosinophils Percent Auto 1.2 0 - 4 % [facility] Basophils Percent Auto 0.5 0 - 2 % [facility] NRBC Pct Auto 0.0 0.0 - 0.2 /100WBC [facility] Neutrophils Absolute Auto 5.4 2.0 - 8.3 x10*3/uL [facility] Imm Gran Abs Auto 0.02 0.00 - 0.03 X10*3/uL [facility] Lymphocytes Absolute Auto 1.5 1.2 - 4.9 X10*3/uL [facility] Monocytes Absolute Auto 0.6 0.1 - 1.2 X10*3/uL [facility] Eosinophils Absolute Auto 0.1 0.0 - 0.4 X10*3/uL [facility] Basophils Absolute Auto 0.0 0.0 - 0.2 X10*3/uL [facility] NRBC Abs Auto 0.000 0.0 - 0.012 X10*3/uL [facility] 04/28/2025 2:06 PM EST 04/28/2025 2:15 PM EST us Generic External Data Provider LAB BLOOD ORDERAB LES Final Result [facility] [address] [place] [address] [phone] documented in this encounter Visit Diagnoses Not [...] Noted Time PHQ-9 Depression Total Score: 24 2 025 11:00 AM EDT documented as of this encounter Care Teams Child Monitor Relationship Specialty Start Date End Date Name, MD Henry [address] [place] [address] PCP - General Family Medicine 08/19/15 Finn Galindo C Software DeveloperChild Care Coordinator 08/06/23 Mari Carrion Quail FarmerChild Care Coordinator 12/03/23 Chiquita 01/18/24 documented as of this encounter
--- OUTSIDE RECORDS SUMMARY | 2025-04-28 21:02 | XMS_ITS | Encounter Summary ---
Author Organization [employer] Address [address] [facility] 7t [place] [address] Care Team Providers Care Store Custodian Name Role Phone Name, Henry BARTLETT Primary Care Provider [phone] Reason for Visit * Reason Onset Date Comments FYI 12/02/2023 Encounter Details Date Type Department Care Team ([facility] Contact Info) Description 12/02/2023 Telephone [facility] [address] [place], [place] [phone] Name, MD Henry [address] [place] [address] FYI Social History Tobacco Use Types Packs/Day [...] Info) Description 04/30/2025 9:30 AM EST Telemedicine [facility] [address] [place] [address] [phone] Suni Rodriguez RN 06/08/2025 9:30 AM EST Office Visit [facility] [address] [place] [address] [phone] Clarisse Bar [address] [place] [address] 06/21/2025 10:30 AM EST Office Visit [facility] [address] [place] [address] [phone] Holger Marquez DDS [address] [place] [address] 06/22/2025 3:15 PM EST Office Visit [facility] [address] [place] [address] [phone] Name, MD Henry [address] [place] [address] [phone] documented as of this encounter Visit Diagnoses Not on filedocumented in this encounter Additional Health Concerns Assessment Noted Time PHQ-9 Depression Total Score: 6 09/14/19 23 9:53 AM EDT documented as of this encounter Care Teams Store Custodian Relationship Specialty Start Date End Date Name, MD Henry [address] [place] [address] [phone] PCP - General Family Medicine 08/19/15 Finn Galindo Black PullerSpecial Projects Coordinator 08/06/23 Mari Carrion Jv Baseball CoachSpecial Projects Coordinator 12/03/23 Chiquita 01/18/24 documented as of this encounter
--- OUTSIDE RECORDS SUMMARY | 2025-04-28 21:02 | XMS_ITS | Encounter Summary ---
Author Organization [employer] Address [address] [facility] 7t [place] [address] Care Team Providers Care Construction Estimator Name Role Phone Name, Henry BARTLETT Primary Care Provider [phone] Reason for Visit * Reason Onset Date Comments Medical Question 09/18/2022 Encounter Details Date Type Department Care Team ([facility] st Contact Info) Description 09/18/2022 Telephone [facility] [address] [place], [place] [phone] Name, MD Henry [address] [place] [address] Medical Question Social History Tobacco Use Types [...] a heart monitor Please contact pt at [phone] [place] Speaker documented in this encounter Plan of Treatment Upcoming Encounters Date Type Department Care Team (Late st Contact Info) Description 04/30/2025 9:30 AM EST Telemedicine [facility] [address] [place] [address] [phone] Suni Rodriguez, EDWARD 06/08/2025 9:30 AM EST Office Visit [facility] [address] [place] [address] Clarisse Bar [address] [place] [address] 06/21/2025 10:30 AM EST Office Visit [facility] [address] [place] [address] Holger Marquez DDS [address] [place] [address] 06/22/2025 3:15 PM EST Office Visit [facility] [address] [place] [address] [phone] Name, MD Henry [address] [place] [address] [phone] documented as of this encounter Visit Diagnoses Not on filedocumented in this encounter Additional Health Concerns Assessment Noted Time PHQ-9 Depression Total Score: 6 09/14/19 23 9:53 AM EDT documented as of this encounter Care Teams Construction Estimator Relationship Specialty Start Date End Date Name, MD Henry [address] [place] [address] [phone] PCP - General Family Medicine 08/19/15 Finn Galindo Crime Lab TechnicianClinical Trials Assistant 08/06/23 Mari Carrion Systems DesignerClinical Trials Assistant 12/03/23 [email or web address] 01/18/24 documented as of this encounter
--- OUTSIDE RECORDS SUMMARY | 2025-04-28 21:02 | XMS_ITS | Encounter Summary ---
Author Organization [employer] Address [address] [facility] 7t [place] [address] Care Team Providers Care Farmworker Dairy Name Role Phone Name, Henry BARTLETT Primary Care Provider [phone] Reason for Visit * Reason Comments Med Refill Encounter Details Date Type Department Care Team (Late Contact Info) Description 09/15/2022 Refill [facility] [address] [place] [address] [phone] Name, MD Henry [address] [place] [address] [phone] Chronic pain syndrome Social History Tobacco Use [...] Upcoming Encounters Date Type Department Care Team ([facility] Contact Info) Description 04/30/2025 9:30 AM EST Telemedicine [facility] [address] [place] [address] [phone] Suni Rodriguez, RN 06/08/2025 9:30 AM EST Office Visit [facility] [address] [place], [place] [phone] Clarises Bar [address] [place] [address] 06/21/2025 10:30 AM EST Office Visit [facility] [address] [place], [place] [phone] Holger Marquez DDS [address] [place], [place] [phone] 06/22/2025 3:15 PM EST Office Visit [facility] [address] [place] [address] [place], [place] [address] documented as of this encounter Visit Diagnoses Diagnosis Chronic pain syndrome documented in this encounter Additional Health Concerns Assessment Noted Time PHQ-9 Depression Total Score: 6 09/14/19 23 9:53 AM EDT documented as of this encounter Care Teams Farmworker Dairy Relationship Specialty Start Date End Date Name, MD Henry [address] [place] [address] 33535 PCP - General Family Medicine 08/19/15 Finn Galindo Fusion Juncture GrinderCommunity Nutrition Educator 08/06/23 Mari Carrion Retouching OperatorCommunity Nutrition Educator 12/03/23 Chiquita 01/18/24 documented as of this encounter
--- OUTSIDE RECORDS SUMMARY | 2025-04-28 21:02 | XMS_ITS | Encounter Summary ---
Author Organization [employer] Address [address] [facility] 7t [place] [address] Care Team Providers Care Grain Shipper Name Role Phone Name, Henry BARTLETT Primary Care Provider [phone] Encounter Details Date Type Department Care Team (Late st Contact Info) Description 11/01/2022 Orders Only [facility] [address] [place] [address] Haley Gardner LPN Social History Tobacco Use [...] Info) Description 04/30/2025 9:30 AM EST Telemedicine [facility] [address] [place] [address] Suni Rodriguez RN 06/08/2025 9:30 AM EST Office Visit [facility] [address] [place] [address] Clarisse Bar [address] [place] [address] 06/21/2025 10:30 AM EST Office Visit [facility] [address] [place], [place] [phone] Holger Marquez DDS [address] [place], [place] [phone] 06/22/2025 3:15 PM EST Office Visit [facility] [address] [place] [address] [phone] Name, MD Henry [address] [place] [address] documented as of this encounter Visit Diagnoses Not on filedocumented in this encounter Additional Health Concerns Assessment Noted Time PHQ-9 Depression Total Score: 6 09/14/19 23 9:53 AM EDT documented as of this encounter Care Teams Grain Shipper Relationship Specialty Start Date End Date Name, MD Henry [address] [place] [address] [phone] PCP - General Family Medicine 08/19/15 Finn Galindo Cdc AssociateProcurement Agent 08/06/23 Mari Carrion Dental ProsthetistProcurement Agent 12/03/23 Chiquita 01/18/24 documented as of this encounter
--- OUTSIDE RECORDS SUMMARY | 2025-04-28 21:02 | XMS_ITS | Encounter Summary ---
Author Organization [employer] Address [address] [facility] 7t [place] [address] Care Team Providers Care Import/Export Freight Forwarder Name Role Phone Name, Henry BARTLETT Primary Care Provider [phone] Reason for Visit * Reason Comments Med Refill Encounter Details Date Type Department Care Team ([facility] st Contact Info) Description 04/30/2024 Refill [facility] [address] [place], [place] [phone] Yue Olsen, LANCE [address] [place], [place] [phone] COPD exacerbation (CMS/HCC) Social History Tobacco Use [...] Description 04/30/2025 9:30 AM EST Telemedicine [facility] [address] [place] [address] [phone] Suni Rodriguez RN 06/08/2025 9:30 AM EST Office Visit [facility] [address] [place] [address] [phone] Clarisse Bar [address] [place] [address] 06/21/2025 10:30 AM EST Office Visit [facility] [address] [place] [address] [phone] Holger Marquez DDS [address] [place] [phone] 06/22/2025 3:15 PM EST Office Visit [facility] [address] [place] [address] [phone] NameHenry MD [address] [place] [phone] documented as of this encounter Visit Diagnoses Diagnosis COPD exacerbation (CMS/HCC) (HCC) Obstructive chronic bronchitis with exacerbation documented in this encounter Additional Health Concerns Assessment Noted Time PHQ-9 Depression Total Score: 6 09/14/19 23 9:53 AM EDT documented as of this encounter Care Teams Import/Export Freight Forwarder Relationship Specialty Start Date End Date Henry Bernardo MD [address] [place] [phone] PCP - General Family Medicine 08/19/15 Finn Galindo Imaging NurseHead Men'S Tennis Coach 08/06/23 Mari Carrion Fruit DumperHead Men'S Tennis Coach 12/03/23 Chiquita 01/18/24 documented as of this encounter
--- OUTSIDE RECORDS SUMMARY | 2025-04-28 21:02 | XMS_ITS | Encounter Summary ---
Author Organization [facility] Address [address] [facility] 7t [place] [address] Care Team Providers Care Straddle Buggy Operator Name Role Phone Name, Henry BARTLETT Primary Care Provider [phone] Encounter Details Date Type Department Care Team (Latest Contact Info) Description 04/27/2025 Travel Social History Tobacco Use Types Packs/Day [...] Info) Description 04/30/2025 9:30 AM EST Telemedicine [facility] [address] [place] [address] Suni Rodriguez RN 06/08/2025 9:30 AM EST Office Visit [facility] [address] [place] [phone] Clarisse Bar 230 [place] [address] 06/21/2025 10:30 AM EST Office Visit [facility] [address] [place] [address] Holger Marquez DDS 230 [place] [address] 06/22/2025 3:15 PM EST Office Visit [facility] [address] [place] [phone] Name, MD Henry [address] [place] [phone] documented as of this encounter Goals Goal [...] Care Plan Patient has diabetic neuropathy No KiddJose dennyRose Weekly blood pressure task Care Plan Weekly [...] Plan Patient has diabetic neuropathy No Suni Rodriguez, RN Weekly blood pressure task Care Plan [...] Weekly blood pressure task No Gardner, Haley, SLOT HOST Weekly blood pressure task Care Plan Weekly blood pressure task No Gardner, Haley, SLOT HOST Weekly blood pressure task Care Plan Weekly blood pressure task No Gardner, Haley, SLOT HOST Patient has chronic kidney disease Care Plan Patient has chronic kidney disease No Gardner, Haley, SLOT HOST Patient has chronic kidney disease Care Plan Patient has chronic kidney disease No Gardner, Haley, SLOT HOST Patient has chronic kidney disease Care Plan Patient has chronic kidney disease No Gardner, Haley, SLOT HOST Patient has diabetic neuropathy Care Plan Patient has diabetic neuropathy No Gardner, Haley, SLOT HOST Patient has diabetic neuropathy Care Plan Patient has diabetic neuropathy No Gardner, Haley, SLOT HOST Patient has diabetic neuropathy Care Plan Patient has diabetic neuropathy No Gardner, Haley, SLOT HOST Weekly blood pressure task Care Plan Weekly [...] Care Plan Patient has diabetic neuropathy No MasonRowena a, Lorena, DDS Weekly blood pressure task [...] neuropathy 04/27/2025 Patient has diabetic neuropathy 04/27/2025 Assessment Noted Time PHQ-9 Depression Total Score: 24 025 11:00 AM EDT documented as of this encounter Care Teams Straddle Buggy Operator Relationship Specialty Start Date End Date Name, MD Henry [address] [place] [address] [phone] PCP - General Family Medicine 08/19/15 Finn Galindo Heavy Equipment Field MechanicDesign Eng 08/06/23 Mari Carrion Supervisor Cigar Making HandDesign Eng 12/03/23 Chiquita 01/18/24 documented as of this encounter
--- OUTSIDE RECORDS SUMMARY | 2025-04-28 21:02 | XMS_ITS | Encounter Summary ---
Author Organization [employer] Address 75 [facility] 7t [place] [address] Care Team Providers Care Station Helper Name Role Phone Name, Henry BARTLETT Primary Care Provider [phone] Reason for Visit * Reason Comments Med Refill Encounter Details Date Type Department Care Team ([facility] st Contact Info) Description 11/25/2023 Refill [facility] 230 [place], [place] [phone] Name, MD Henry 230 [place], [place] [phone] Iron deficiency anemia, unspecified iron deficiency anemia [...] Info) Description 04/30/2025 9:30 AM EST Telemedicine [facility] [address] [place] [address] Suni Rodriguez RN 06/08/2025 9:30 AM EST Office Visit [facility] [address] [place] [phone] Clarisse Bar [address] [place] [address] 06/21/2025 10:30 AM EST Office Visit [facility] [address] [place] [phone] Holger Marquez DDS [address] [place] [address] 06/22/2025 3:15 PM EST Office Visit [facility] [address] [place] [phone] NameHenry MD [address] [place] [address] documented as of this encounter Visit Diagnoses Diagnosis Iron deficiency anemia, unspecified iron deficiency anemia type documented in this encounter Additional Health Concerns Assessment Noted Time PHQ-9 Depression Total Score: 6 09/14/19 23 9:53 AM EDT documented as of this encounter Care Teams Station Helper Relationship Specialty Start Date End Date Henry Bernardo MD [address] [place] [address]759 PCP - General Family Medicine 08/19/15 Finn Galindo Cigarette Carton SealerLinux Vmware Administrator 08/06/23 Mari Carrion Operations Research DirectorLinux Vmware Administrator 12/03/23 Chiquita 01/18/24 documented as of this encounter
--- OUTSIDE RECORDS SUMMARY | 2025-04-28 21:02 | XMS_ITS | Encounter Summary ---
Author Organization [email or web address] Address 75 [facility] 7t [place] [address] Care Team Providers Care District Plant Supervisor Name Role Phone Name, Henry BARTLETT Primary Care Provider [phone] Reason for Visit * Reason Onset Date Comments Results 10/22/2023 Encounter Details Date Type Department Care Team ([facility] Contact Info) Description 10/22/2023 Telephone [facility] 230 [place], [place] [phone] Name, MD Henry 230 [place], [place] [phone] Results Social History Tobacco Use Types Packs/Day [...] and Urine Date when done: 10/15 Facility: [facility] documented in this encounter Plan of Treatment Upcoming Encounters Date Type Department Care Team (Late st Contact Info) Description 04/30/2025 9:30 AM EST Telemedicine [facility] [address] [place] [address] Suni Rodriguez RN 06/08/2025 9:30 AM EST Office Visit [facility] [address] [place] [address] Clarisse Bar [address] [place] [address] 06/21/2025 10:30 AM EST Office Visit [facility] [address] [place] [address] Holger Marquez DDS [address] [place] [address] 06/22/2025 3:15 PM EST Office Visit [facility] [address] [place] [address] Name, MD Henry 230 [place] [address] documented as of this encounter Visit Diagnoses Not on filedocumented in this encounter Additional Health Concerns Assessment Noted Time PHQ-9 Depression Total Score: 6 09/14/19 23 9:53 AM EDT documented as of this encounter Care Teams District Plant Supervisor Relationship Specialty Start Date End Date Name, MD Henry [address] [place] [address] PCP - General Family Medicine 08/19/15 Finn Galindo Brickmason SupervisorAudiology Director 08/06/23 Mari Carrion Oral And Maxillofacial Surgery ResidentAudiology Director 12/03/23 Chiquita 01/18/24 documented as of this encounter
--- OUTSIDE RECORDS SUMMARY | 2025-04-28 21:02 | XMS_ITS | Encounter Summary ---
Author Organization [employer] Address [address] [facility] 7t [place] [address] Care Team Providers Care Sql Ssis Developer Name Role Phone Name, Henry BARTLETT Primary Care Provider [phone] Reason for Visit * Reason Comments Med Refill Encounter Details Date Type Department Care Team (Late st Contact Info) Description 12/31/2022 Refill [facility] [address] [place] [phone] Name, MD Henry [address] [place] [phone] Social History Tobacco Use Types Packs/Day Years [...] 04/30/2025 9:30 AM EST Telemedicine [facility] [address] [place] [address]99 Suni Rodriguez RN 06/08/2025 9:30 AM EST Office Visit [facility] [address] [place] [address] Clarisse Bar [address] [place] [address] 06/21/2025 10:30 AM EST Office Visit [facility] [address] [place], [place] [phone] Holger Marquez DDS [address] [place] [address] 06/22/2025 3:15 PM EST Office Visit [facility] [address] [place] [address] Name, MD Henry 230 [place], [place] [phone] documented as of this encounter Visit Diagnoses Not on filedocumented in this encounter Additional Health Concerns Assessment Noted Time PHQ-9 Depression Total Score: 6 09/14/19 23 9:53 AM EDT documented as of this encounter Care Teams Sql Ssis Developer Relationship Specialty Start Date End Date Name, MD Henry [address] [place] [address]75 PCP - General Family Medicine 08/19/15 Finn Galindo Director Patient Financial ServicesSugar Boiler 08/06/23 Mari Carrion B2B Account ExecutiveSugar Boiler 12/03/23 Chiquita 01/18/24 documented as of this encounter
--- OUTSIDE RECORDS SUMMARY | 2025-04-28 21:02 | XMS_ITS | Encounter Summary ---
Author Organization [employer] Address [address] [facility] 7t [place] [address] Care Team Providers Care Weekend Anchor Name Role Phone Name, Henry BARTLETT Primary Care Provider [phone] Reason for Visit * Reason Onset Date Comments FYI 12/17/2023 Encounter Details Date Type Department Care Team ([facility] st Contact Info) Description 12/17/2023 Telephone [facility] [address] [place], [place] [phone] Name, MD Henry [address] [place] [address] FYI Social History Tobacco Use Types Packs/Day [...] pt is being seen at is the [facility] ([address] [place] [address]) Rehab documented in this encounter Plan of Treatment Upcoming Encounters Date Type Department Care Team (Late st Contact Info) Description 04/30/2025 9:30 AM EST Telemedicine [facility] [address] [place] [address] Suni Rodriguez RN 06/08/2025 9:30 AM EST Office Visit [facility] [address] [place] [address] Clarisse Bar [address] [place] [address] 06/21/2025 10:30 AM EST Office Visit [facility] [address] [place], [place] [phone] Holger Marquez DDS [address] [place], [place] [phone] 06/22/2025 3:15 PM EST Office Visit [facility] [address] [place] [address] [phone] Name, MD Henry [address] [place] [address] documented as of this encounter Visit Diagnoses Not on filedocumented in this encounter Additional Health Concerns Assessment Noted Time PHQ-9 Depression Total Score: 6 09/14/19 23 9:53 AM EDT documented as of this encounter Care Teams Weekend Anchor Relationship Specialty Start Date End Date Name, MD Henry [address] [place] [address] [phone] PCP - General Family Medicine 08/19/15 Finn Galindo Corporate Wellness CoordinatorCarousel Operator 08/06/23 Mari Carrion Manager UtilityCarousel Operator 12/03/23 Chiquita 01/18/24 documented as of this encounter
--- OUTSIDE RECORDS SUMMARY | 2025-04-28 21:02 | XMS_ITS | Encounter Summary ---
Author Organization [employer] Address [address] [facility] 7t [place] [address] Care Team Providers Care Juvenile Counselor Name Role Phone Name, Henry BARTLETT Primary Care Provider [phone] Encounter Details Date Type Department Care Team (Late st Contact Info) Description 10/23/2022 Abstract [facility] [address] [place] [address] [phone] Name, MD Henry [address] [place] [address] Social History Tobacco Use Types Packs/Day Years [...] Info) Description 04/30/2025 9:30 AM EST Telemedicine [facility] [address] [place] [address] [phone] Suni Rodriguez RN 06/08/2025 9:30 AM EST Office Visit [facility] [address] [place] [address] [phone] Clarisse Bar [address] [place] [address] 06/21/2025 10:30 AM EST Office Visit [facility] [address] [place] [address] Holger Marquez DDS [address] [place] [address] 06/22/2025 3:15 PM EST Office Visit [facility] [address] [place] [address] Name, MD Henry 230 [place] [address] documented as of this encounter Procedures Procedure Name Priority Date/Time Associated Diagnosis Comments COLONOSCOPY Routine 04/12/2020 10:05 AM EST documented in this encounter Results * Colonoscopy (04/12/2020 10:05 AM EST) Colonoscopy Normal Normal Narrative Amina Stroud - 04/12/2020 10:05 AM EST Recommended 5 year follow up ([facility]) Historical Provider HEALTH MAINTENANCE Final Result documented in this encounter Visit Diagnoses Not on filedocumented in this encounter Additional Health Concerns Assessment Noted Time PHQ-9 Depression Total Score: 6 09/14/19 23 9:53 AM EDT documented as of this encounter Care Teams Juvenile Counselor Relationship Specialty Start Date End Date Name, [place] [address] PCP - General Family Medicine 08/19/15 Finn Galindo Nozzle TenderRolling Machine Operator 08/06/23 Mari Carrion Braille TypistRolling Machine Operator 12/03/23 Chiquita 01/18/24 documented as of this encounter
--- OUTSIDE RECORDS SUMMARY | 2025-04-28 21:02 | XMS_ITS | Encounter Summary ---
Author Organization [employer] Address [address] [facility] 7t [place] [address] Care Team Providers Care Training Representative Name Role Phone Name, Henry BARTLETT Primary Care Provider [phone] Reason for Visit * Reason Comments Med Refill Encounter Details Date Type Department Care Team (Late st Contact Info) Description 01/25/2023 Refill [facility] [address] [place] [address] [phone] Name, MD Henry [address] [place] [address] Diabetic polyneuropathy associated with type 2 diabetes mellitus (CMS/[facility]) Social History Tobacco Use Types Packs/Day Years [...] Info) Description 04/30/2025 9:30 AM EST Telemedicine [facility] [address] [place] [address] [phone] Suni Rodriguez RN 06/08/2025 9:30 AM EST Office Visit [facility] [address] [facility] [place] [address] Nicholas Bararis 230 [place] [address] 06/21/2025 10:30 AM EST Office Visit [facility] [address] [facility] [place] [address] Holger Marquez DDS 230 [place], [place] [phone] 06/22/2025 3:15 PM EST Office Visit [facility] [address] [facility] [place] [address] Name, MD Henry [address] [facility] [place] [address] documented as of this encounter Visit Diagnoses Diagnosis Diabetic polyneuropathy associated with type 2 diabetes mellitus (HCC) documented in this encounter Additional Health Concerns Assessment Noted Time PHQ-9 Depression Total Score: 6 09/14/19 23 9:53 AM EDT documented as of this encounter Care Teams Training Representative Relationship Specialty Start Date End Date Name, MD Henry K[facility]an [facility] [place] [address] PCP - General Family Medicine 08/19/15 Finn Galindo Pot RunnerWard Secretary 08/06/23 Mari Carrion Branch CoordinatorWard Secretary 12/03/23 Chiquita 01/18/24 documented as of this encounter
--- OUTSIDE RECORDS SUMMARY | 2025-04-28 21:02 | XMS_ITS | Encounter Summary ---
Author Organization [employer] Address 75 [facility] 7t [place] [address] Care Team Providers Care Lead Etl Developer Name Role Phone Name, Henry BARTLETT Primary Care Provider [phone] Reason for Visit * Reason Comments Med Refill Encounter Details Date Type Department Care Team (Late Contact Info) Description 09/17/2022 Refill [facility] [address] [place] [address] [phone] Name, MD Henry [address] [place] [address] [phone] Social History Tobacco Use Types Packs/Day Years [...] Info) Description 04/30/2025 9:30 AM EST Telemedicine [facility] [address] [place] [address] [phone] Suni Rodriguez RN 06/08/2025 9:30 AM EST Office Visit [facility]ULT [facility] [address] [place], [place] [phone] Dipika, Clarisse [address] [place] [address] 06/21/2025 10:30 AM EST Office Visit [facility] [address] [place] [address] Holger Marquez DDS [address] [place] [address] 06/22/2025 3:15 PM EST Office Visit [facility] [address] [place] [address] Name, MD Henry [address] [place] [address] documented as of this encounter Visit Diagnoses Not on filedocumented in this encounter Additional Health Concerns Assessment Noted Time PHQ-9 Depression Total Score: 6 09/14/19 23 9:53 AM EDT documented as of this encounter Care Teams Lead Etl Developer Relationship Specialty Start Date End Date Name, MD Henry [address] [place] [phone] PCP - General Family Medicine 08/19/15 Finn Galindo Rn LiaisonHadoop Admin 08/06/23 Mari Carrion Import/Export ClerkHadoop Admin 12/03/23 Chiquita 01/18/24 documented as of this encounter
--- OUTSIDE RECORDS SUMMARY | 2025-04-28 21:02 | XMS_ITS | Clinical Summary ---
Author Organization [employer] Address [address] [place] [address] Care Team Providers Care Automation/Controls Manager Name Role Phone Name, Henry BARTLETT Primary Care Provider [phone] Allergies Active Allergy Reactions Criticality Noted Date Comments Celecoxib GI intolerance 05/23/2022 Other reaction(s): GI UPSET Ibuprofen Unknown 09/27/2008 Other reaction(s): gi upset Other Reaction(s): Not available, Not available, OTHER Has gastritis,stomach upset Iodinated Contrast Media 09/27/2008 Other reaction(s): anaphylactic shock Other Reaction(s): OTHER Throat closure Other reaction(s): anaphylactic shock Other Reaction(s): OTHER Throat closure Iodine Unknown 10/21/2015 Metformin Hcl 10/01/2011 Abdominal pain Nitrofurantoin 09/04/2012 Pineapple Itching 12/04/2022 Medications * This document contains information received from the source organization and may not represent a complete record from that organization. Umeclidinium [place] (Incruse Ellipta) 62.5 MCG/ACT aerosol powder Inhale [...] g 11 04/12/20 25 1:19 PM EST Active insulin syringe-needle U-100 (UltiCare Insulin Syringe) 31G X 5/16 1 mL misc Use as instructed 100 each 5 04/21/20 25 8:43 AM EST 025 Active FREESTYLE LITE test stripIndications :Type [...] SUGAR THREE TIMES DAILY 100 each 11 04/21/20 25 8:43 AM EST 025 Active lactulose (Chronulac) 10 GM/15ML solution TAKE 15 ML BY MOUTH EVERY DAY 450 mL 5 04/21/20 25 8:43 AM EST 025 Active cetirizine (ZyrTEC) 10 MG tabletIndication [...] unspecified chronic bronchitis type (CMS/HCC) ([facility]) USE 2 SPRAYS IN EACH NOSTRIL ONCE DAILY DIRECTED 48 g 1 025 Active albuterol (2.5 MG/3ML) 0.083% nebulizer solution INHALE 1 AMPULE USING A NEBULIZER EVERY 6 HOURS NEEDED FOR WHEEZING OR SHORTNESS OF BREATH 360 mL 3 025 Active Alcohol Swabs (Alcohol Prep) 70 % padsIndications: Diabetic polyneuropathy associated with type 2 diabetes mellitus ([facility]) TEST BLOOD SUGAR THREE TIMES DAILY 100 each Active famotidine (Pepcid) 20 MG tabletIndication s:Heartburn [...] PM EST 025 2025 Active Continuous Glucose Coding Tech (FreeStyle Jimena 3 Urania) device 1 each Once per day. Use [...] BEFORE MEALS AND AT BEDTIME 473 mL 04/26/20 12:58 PM EST Active tamsulosin (Flomax) 0.4 MG 24 hr capsule TAKE 1 CAPSULE BY MOUTH EVERY EVENING 90 capsule 1 Active sodium chloride (Sitka Nasal [place]) 0.65 % nasal sprayIndications :Chronic frontal sinusitis Administer 1 spray into each nostril if needed for congestion. 30 mL 2025 Active Azelastine HCl 137 MCG/SPRAY solutionIndicati ons:Chronic bronchitis, unspecified chronic bronchitis type (CMS/HCC) ([facility]) INSTILL 1 SPRAY IN EACH NOSTRIL TWICE DAILY 30 mL 2 Active SUMAtriptan (Imitrex) 100 MG tabletIndication s:Migraine without status migrainosus, not intractable, unspecified migraine type TAKE 1 TABLET BY MOUTH AT ONSET OF MIGRAINE. MAY REPEAT ONCE AFTER 2 HOURS IF NEEDED 10 tablet 2 04/14/20 2:53 PM EST Active Diclofenac Sodium 1 % gelIndications:C hronic low back pain, unspecified back pain laterality, unspecified whether sciatica present APPLY 2 GRAMS TOPICALLY TO AFFECTED AREA(S) TWICE DAILY DIRECTED 100 g 03/29/20 9:35 AM EST Active insulin degludec (Tresiba) 100 UNIT/ML injection INJECT 15 UNITS SUBCUTANEOUSLY ONCE DAILY (dose decrease) 10 mL 04/26/20 12:58 PM EST Active memantine (Namenda) 5 MG tablet Take 5 mg by mouth in the morning. Active pregabalin (Lyrica) 100 MG capsuleIndicatio ns:Diabetic polyneuropathy associated with type 2 diabetes mellitus (HCC) TAKE 1 CAPSULE BY MOUTH THREE TIMES DAILY IN THE MORNING, EVENING, AND BEDTIME 90 capsule 04/21/20 25 8:43 AM EST 025 Active ferrous gluconate (Fergon) 324 (38 Fe) MG tabletIndication s:Iron deficiency anemia, unspecified iron deficiency anemia type TAKE 1 TABLET BY MOUTH EVERY DAY IN THE MORNING WITH BREAKFAST 90 tablet 1 Active oxyCODONE-acetam inophen (Percocet) 7.5-325 MG tabletIndication s:Chronic pain syndrome Take 1 tablet by mouth every 8 (eight) hours if needed for severe pain. 84 tablet 04/21/20 25 8:43 AM EST 025 Active citalopram (CeleXA) 10 MG tablet TAKE 1 TABLET BY MOUTH EVERY DAY 30 tablet 1 04/27/20 25 10:18 AM EST 025 Active ferrous gluconate (Fergon) 324 (38 Fe) MG tabletIndication s:Iron deficiency anemia, unspecified iron deficiency anemia type TAKE 1 TABLET BY MOUTH EVERY MORNING WITH BREAKFAST 90 tablet 1 025 2024 Discontinued amoxicillin (Amoxil) 500 MG capsule Take 4 capsules of amoxicillin 500 mg 1 hour prior dental procedure 12 capsule 025 2024 Discontinued(T herapy completed) amoxicillin (Amoxil) 500 MG capsule Take 4 capsules of amoxicillin 500 mg 1 hour prior dental procedure 12 capsule 025 2024 Discontinued(T herapy completed) citalopram (CeleXA) 10 MG tablet TAKE 1 TABLET BY MOUTH EVERY DAY 30 tablet 1 04/12/20 25 1:19 PM EST 025 2024 Discontinued pregabalin (Lyrica) 100 MG capsuleIndicatio ns:Diabetic polyneuropathy associated with type 2 diabetes mellitus (HCC) TAKE 1 CAPSULE BY MOUTH THREE TIMES DAILY IN THE MORNING, EVENING, AND BEDTIME 90 capsule 025 2024 Discontinued(R eorder (will not trigger notification to Pharmacy)) oxyCODONE-acetam [...] DAILY 10 mL 11 025 2024 Discontinued oxyCODONE-acetam inophen (Percocet) 7.5-325 MG tabletIndication s:Chronic pain syndrome TAKE 1 TABLET BY MOUTH EVERY 8 HOURS NEEDED FOR SEVERE PAIN 84 tablet 04/13/20 2:55 PM EST 2024 Discontinued(R eorder (will not trigger notification to Pharmacy)) Active Problems Problem Noted Date Diagnosed Date Hypercholesterolemia 02/16/2025 Hypertension 02/16/2025 Chronic foot pain 02/16/2025 Moderate Alzheimer's dementi a without behavioral disturbance, psychotic disturbance, mood disturbance, or anxiety ([facility]) 01/19/2025 Dental root caries 01/13/2025 PARAM (generalized anxiety disorder) 11/23/2024 Excessive attrition of teeth, limited to enamel 10/01/2024 Abfraction 10/01/2024 Tooth abrasion 10/01/2024 Stage 3a chronic kidney disease ([facility]) 2024 Abdominal hernia without obstruction and without gangrene 07/29/2024 Dental plaque 04/01/2024 Generalized gingival recession 04/01/2024 Missing teeth, acquired 04/01/2024 Xerostomia 04/01/2024 Chronic constipation 11/19/2023 Anemia 11/13/2023 Open fracture of left tibia 11/13/2023 Aortic valve stenosis 11/01/2023 Type 2 diabetes mellitus treated with insulin Assessment & Plan (02/10/2024 8:21 PM EDT): Has upcoming visit with pcp encouraged pt to discuss trulicity then Long-term current use of opiate analgesic 2022 Arthritis 11/29/2022 Gastroesophageal reflux disease without esophagi tis 11/29/2022 Hepatitis C virus infection 11/29/2022 Pain of foot 11/29/2022 Chronic bronchitis (CMS/HCC) 03/29/2022 Chronic sinusitis 03/29/2022 MDD (major depressive disord er), recurrent severe, without psychosis (CMS/HCC) 03/29/2022 Epigastric pain 03/29/2022 Seasonal allergic reaction 03/29/2022 Chronic pain 03/29/2022 History of cataract extraction 03/29/2022 History of hepatitis C 03/29/2022 Spinal cord stimulator status 10/13/2018 Hepatic fibrosis 08/11/2018 Chronic low back pain 03/26/2017 Diabetic polyneuropathy 02/26/2017 Hypertensive disorder 07/10/2016 Heartburn 07/10/2016 Fibromyalgia 02/27/2016 Recurrent sinusitis 02/14/2016 Asthma 09/20/2015 H/O: hysterectomy 09/20/2015 History of cholecystectomy 09/20/2015 History of total knee arthroplasty 09/20/2015 Hyperlipidemia 09/20/2015 Migraine 09/20/2015 Essential hypertension 05/31/2015 Diabetes mellitus with [...] Ankle fracture, left 10/31/2010 Allergic rhinitis 06/01/2010 Type 2 diabetes mellitus in patient with obesity 01/25/2010 Overview (04/19/2025): Last Assessment & Plan: Lantus titration initiated today. Lantus dose increased from 48 units daily to 50 units daily. See my notes from 12/27/11. Radiculitis, lumbosacral 2009 Sacroiliac pain 2009 Low back pain 2009 Menopausal syndrome (hot flashes) 09/02/2009 Elevated rheumatoid factor 10/26/2008 Overview (02/16/2025): The patient is follow at the arthritis treatment center in [facility] on no hand deformity Depression 09/27/2008 DJD (degenerative joint disease) 09/27/2008 Overview (02/16/2025): Patient goes to arthritis treatment center, s/p bilateral TKR?2012 by ZOEY GERD (gastroesophageal reflux disease) 9 Obesity 09/27/2008 Resolved Problems Problem Noted Date Diagnosed Date Resolved Date Diabetes mellitus 02/16/2025 04/14/2025 Severe obesity (BMI 35.0-39. 9) with comorbidity ([facility]) 02/16/2025 04/14/2025 Hair loss 02/10/2024 04/14/2025 Assessment & Plan (02/10/2024 8:20 PM EDT): Suspect stress induced hair loss, however will check labs COPD exacerbation ([facility]) 02/10/2024 04/14/2025 Assessment & Plan (02/10/2024 8:20 PM EDT): Rx for prednisone, monitor sugars, [facility] hours reviewed Itching 01/02/2024 03/02/2024 Delirium 11/13/2023 03/02/2024 Cataract of both eyes 11/29/20222024 Smoker 03/29/2022 04/14/2025 SHANNAN on CPAP 02/27/2016 04/14/2025 Overview (11/29/2022): Not using noninvasive ventilation device Morbid obesity (CMS/[facility]) 09/20/201507/2024 Diabetes mellitus 09/20/2015 01/02/2023 Encounters Date Type Department Care Team Description 04/28/2025 Orders Only GENERIC EXTERNAL DATA DEPARTMENT Provider, Generic External Data 04/28/2025 Telephone [facility] [address] [place] [phone] Henry Bernardo MD Nurse Triage 04/27/2025 Travel 04/24/2025 Refill [facility] [address] [place] [phone] Henry Bernardo MD 04/20/2025 Refill [facility] [address] [place] [phone] Henry Bernardo MD Chronic pain syndrome 04/20/2025 Refill [facility] [address] [place] [address] NameHenry MD Chronic pain syndrome 04/19/2025 11:30 AM EST Office Visit [facility] [address] [place] [phone] Lorena Cazares, DDS Dental caries (Primary Dx); Open fracture of tooth, initial encounter 04/19/2025 Refill [facility] [address] [place] [address] Henry Bernardo MD Chronic pain syndrome 04/18/2025 Refill [facility] [address] [place] [phone] Yue Olsen NP Iron deficiency anemia, unspecified iron deficiency anemia type 04/15/2025 Refill [facility] [address] [place] [address] Henry Bernardo MD Diabetic polyneuropathy associated with type 2 diabetes mellitus (HCC) 04/14/2025 2:30 PM EST Office Visit [facility] [address] [place] [phone] Henry Bernardo MD Type 2 diabetes mellitus with other specified complication, with long-term current use of insulin (HCC) (Primary Dx); Moderate Alzheimer's dementia without behavioral disturbance, psychotic disturbance, mood disturbance, or anxiety, unspecified timing of dementia onset (CMS/HCC) (HCC); Pain in both hands; Hand swelling; Encounter for immunization 04/14/2025 Travel 04/13/2025 Telephone [facility] [address] [place] [phone] Henry Bernardo MD Chart Prep 04/12/2025 Telephone [facility] [address] [place] [phone] NameHenry MD 04/12/2025 Refill [facility] [address] [place], [place] [phone] Henry Bernardo MD Chronic pain syndrome 04/06/2025 Telephone [facility] [address] [place] [phone] NameHenry MD FYI 03/29/2025 Refill [facility] [address] [place] [phone] NameHenry MD 03/29/2025 Refill [facility] [address] [place] [phone] NameHenry MD Type 2 diabetes mellitus with other specified complication, with long-term current use of insulin ([facility]) 03/29/2025 Telephone [facility] [address] [place] [address] [phone] NameHenry MD Med Refill 03/21/2025 Refill [facility] [address] [place] [address] Yue Olsen, LANCE Chronic low back pain, unspecified back pain laterality, unspecified whether sciatica present 03/15/2025 Refill [facility] [address] [place] [address] Yue Olsen, LANCE Chronic pain syndrome 03/12/2025 Refill [facility] [address] [place] [address] Yue Olsen, LANCE Chronic pain syndrome 03/12/2025 Refill [facility] [address] [place] [phone] NameHenry MD Diabetic polyneuropathy associated with type 2 diabetes mellitus (HCC) 03/08/2025 11:00 AM EDT Office Visit [facility] [address] [place] [phone] Holger Marquez DDS 03/04/2025 Refill [facility] [address] [place], [place] [phone] Henry Bernardo MD Migraine without status migrainosus, not intractable, unspecified migraine type 03/03/2025 Refill [facility] [address] [place] [address] Henry Bernardo MD Chronic pain syndrome 02/19/2025 Refill [facility] [address] [place] [address] Henry Bernardo MD Type 2 diabetes mellitus with other specified complication, with long-term current use of insulin ([facility]) 02/19/2025 Refill [facility] [address] [place] [address] Henry Bernardo MD 02/17/2025 Refill [facility] [address] [place] [phone] Henry Bernardo MD Chronic bronchitis, unspecified chronic bronchitis type (CMS/HCC) ([facility]) 02/16/2025 10:00 AM EDT Office Visit [facility] [address] [place] [phone] Mason-Ramesh, Lorena, DDS Missing teeth, acquired (Primary Dx) 02/12/2025 9:00 AM EDT Office Visit [facility] [address] [place] [phone] Mason-Ramesh, Lorena, DDS Missing teeth, acquired (Primary Dx) 02/09/2025 10:30 AM EDT Office Visit [address] [address] KevinoNe, MOSAICIST Chronic frontal sinusitis (Primary Dx) 02/09/2025 Travel 02/09/2025 Refill [facility] [address] [place] [phone] Henry Bernardo MD 02/08/2025 Telephone [facility] [address] [place] [phone] Henry Bernardo MD Nurse Triage 02/05/2025 9:00 AM EDT Telemedicine [address] [address] Suni Rodriguez, EDWARD Long-term current use of opiate analgesic 02/05/[address] [phone] Suni Rodriguez RN BPI Scoring 02/05/2025 Travel 02/01/2025 Refill [facility] [address] [place] [address] Name, MD Henry Chronic pain syndrome 01/27/2025 Refill [facility] [address] [place] [phone] Name, MD Henry Diabetic polyneuropathy associated with type 2 diabetes mellitus ([facility]) from Last 3 Months Immunizations Immunization Administration Dates Next Due Hep A, Adult 04/23/2006,04/24/2005 Hep A, Unspecified 04/23/2006,04/24/2005 Hep B, Unspecified 08/27/2018, 3,06/16/2012,04/23,05/29/2005,04/24/2005 Hep B, adult 08/27/2018, 3,06/16/2012,04/23,05/29/2005,04/24/2005 INFLUENZA VACCINE QUADRIVALE NT RECOMBINANT PRESERVATIVE FREE RIV4 02/10/2020 Influenza injectable quadriv alent IIV4 with preservative 06/24/2019,02/26/2018,02/13/2017,02/26 Influenza injectable quadriv alent preservative free 03/13/2023,02/28/2021 Influenza, High Dose Seasona l, Preservative Free 04/14/2025 Influenza, IIV3, injectable 01/22/2013,1 05/23/2011,03/02/2011,01/25,01/27/2009,03/07/2008,06/13/2007 ,04/23/2006,04/06/2005 Influenza, Unspecified 01/14/2015,12/14/2013 Influenza, seasonal, injecta ble, preservative free 01/28/2024,07/09/2022,01/22/2013,03/23,03/02/2011,01/25/2010,01/27/2009 ,06/13/2007,04/23/2006,04/06/2005 Moderna Covid-19 Vaccine 12+ 06/16/2020,05/26/19 21 Novel [id number], preservative-free 05/20/2009 Pfizer Covid-19 Vaccine 12+ 04/14/2025,0 07/29/2024,04/09/2023,02/28,06/16/2020,05/26/2020 Pfizer Covid-19 Vaccine 12+ Bivalent 07/09/2022 Pneumococcal [...] Sign Reading Time Taken Comments Blood Pressure 144/82 04/14/2025 3:01 PM EST Pulse 88 04/14/2025 3:01 PM EST Temperature 35.9 C (96.7 F) 04/14/2025 3:01 PM EST Respiratory Rate 18 04/14/2025 3:01 PM EST Oxygen Saturation 97% 04/14/2025 3:01 PM EST Inhaled Oxygen Concentration - - Weight 89.3 kg (196 lb 12.8 oz) 04/14/2025 3:01 PM EST Height 160 cm (5' 3 ) 04/14/2025 3:01 PM EST Body Mass Index 34.86 04/14/2025 3:01 PM EST Plan of Treatment Upcoming Encounters Date Type Department Care Team (Late st Contact Info) Description 04/30/2025 9:30 AM EST Telemedicine [facility] [address] [place] [address] Suni Rodriguez RN 06/08/2025 9:30 AM EST Office Visit [facility] [address] [place] [phone] Clarisse Bar [address] [place] [address] 06/21/2025 10:30 AM EST Office Visit [facility] [address] [place] [address] Holger Marquez DDS [address] [place] [address] 06/22/2025 3:15 PM EST Office Visit [facility] [address] [facility] [place] [address] Name, MD Henry [address] [facility] [place] [address] Health Maintenance Due Date Last Done Comments CT Colonography 1959 FIT DNA/Cologuard 1959 FIT 1959 FOBT 1959 Sigmoidoscopy 1959 Pap Smear 11/27/1980 HPV/Cotest 11/27/1989 RSV Patients and Patients Aged 60 years or older (1 - Risk 50-74 years 1-dose series) 11/27/2009 Zoster Vaccines (1 of 2) 11/27/2009 Mammogram 05/31/2023 05/31/2021, 05/29/2018 Eye Exam 09/10/2024 09/11/2023, 05/0 05/2023, 09/11/2023, Additional history exists Dental Oral Exam 04/04/2025 10/01/2024, , 07/11/2022, Additional history exists Dental Prophylaxis 04/04/2025 10/01/2024, 04/01/2024 Colonoscopy 04/12/2025 04/12/2020 Colorectal Cancer Screening 04/12/2025 Depression Monitoring 05/23/2025 11/20/2024, 025 Dental X-Ray: Bitewings 10/02/2025 10/01/2024, 07/11 COVID-19 Vaccine ( season) 2025 04/14/2025, 07/29/2024, 04/09/2023, Additional history exists Diabetes: Hemoglobin A1C 10/13/2025 025, 11/18/2024, 07/29/2024, Additional history exists Alcohol/Substance Use Screening 11/18/2025 11/18/2024 SDOH Screening 11/18/2025 11/18/2024 Diabetes: Foot Exam 01/19/2026 01/19/2025, 01/19/2025, 01/19/2025, Additional history exists Diabetes: Urine Protein Screening 02/12/2026 02/12/2025, 10/16/2023, 10/16/2023, Additional history exists Lipid Panel 02/12/2026 02/12/2025, 06/0 09/2023, 03/02/2020 Tobacco Screening 04/19/2026 04/19/2025 Dental X-Ray: Full Mouth 03/11/2027 03/10/2024 DTaP/Tdap/Td Vaccines (4 - Td or Tdap) 06/24/2029 06/24/2019, 06/24/2019, 09/27/2008, Additional history exists Hepatitis A Vaccines Completed 04/23/2006, 04/23/2006, 04/24/2005, Additional history exists Hepatitis B Vaccines Completed 08/27/2018, 08/27/2018, 01/22/2013, Additional history exists Pneumococcal Vaccine: 50+ Years Completed 08/06/2023, 03/07/2008, 04/09/2005 Influenza Vaccine Completed 04/14/2025, , 03/13/2023, Additional history exists Cervical Cancer Screening Discontinued HIB Vaccines Aged [...] Care Plan Weekly blood pressure task No Joey Prestonylee Help patients manage their type 2 diabetes Care Plan Help patients manage their type 2 diabetes No PrestonJoey nicoleylee Patient has chronic kidney disease Care Plan Patient has chronic kidney disease No PrestonJoey nicoleylee Help patients manage their type 2 diabetes Care Plan Help patients manage their type 2 diabetes No PrestonJim nicolee Patient has diabetic neuropathy Care Plan Patient has diabetic neuropathy No Jim Prestone Weekly blood pressure task Care Plan Weekly [...] Plan Patient has diabetic neuropathy No Preston Joeyylee Patient has diabetic neuropathy Care Plan [...] Patient has diabetic neuropathy No Kidd Rose Weekly blood pressure task [...] Patient has chronic kidney disease No Antonia Slamon MA Patient has diabetic neuropathy Care Plan [...] Weekly blood pressure task No Gardner, Haley, DBA MANAGER Weekly blood pressure task Care Plan Weekly blood pressure task No Gardner, Haley, DBA MANAGER Weekly blood pressure task Care Plan Weekly blood pressure task No Gardner, Haley, DBA MANAGER Patient has chronic kidney disease Care Plan Patient has chronic kidney disease No Gardner, Haley, DBA MANAGER Patient has chronic kidney disease Care Plan Patient has chronic kidney disease No Gardner, Haley, DBA MANAGER Patient has chronic kidney disease Care Plan Patient has chronic kidney disease No Gardner, Haley, DBA MANAGER Patient has diabetic neuropathy Care Plan Patient has diabetic neuropathy No Gardner, Haley, DBA MANAGER Patient has diabetic neuropathy Care Plan Patient has diabetic neuropathy No Gardner, Haley, DBA MANAGER Patient has diabetic neuropathy Care Plan Patient has diabetic neuropathy No Gardner, Haley, DBA MANAGER Weekly blood pressure task Care Plan Weekly blood pressure task No Mason-Acost a, Lorena, DDS Weekly blood pressure task Care Plan Weekly blood pressure task No Msaon-Acost a, Lorena, DDS Weekly blood pressure task [...] Plan Patient has diabetic neuropathy No Colon Loly Rosa Patient has diabetic neuropathy Care Plan Patient has diabetic neuropathy No Colon Loly Rosa Patient has diabetic neuropathy Care Plan Patient has diabetic neuropathy No Colon Loly Rosa Procedures Procedure Name Priority Date/Time Associated Diagnosis Comments TSH W/REFLEX TO FT4 Routine 04/28/2025 5 :41 PM EST SARS COV2/INFLUENZA A/B AND RSV RNA QL NAAT Routine 04/28/2025 5:41 PM EST TYPE AND SCREEN Routine 04/28/2025 2:06 PM EST MAGNESIUM Routine 04/28/2025 2:06 PM EST COMPREHENSIVE METABOLIC PANEL Routine 04/28/2025 2:06 PM EST PROTHROMBIN TIME-INR Routine 04/28/2025 2:06 PM EST CBC WITH AUTO DIFFERENTIAL Routine 04/28/2025 2:06 PM EST CASE PRESENTATION, DETAILED AND EXTENSIVE TREATMENT PLANNING Routine 04/19/2025 11:30 AM EST Dental caries Open fracture of tooth, initial encounter INTRAORAL - PERIAPICAL FIRST RADIOGRAPHIC IMAGE Routine 04/19/2025 11:30 AM EST Dental caries Open fracture of tooth, initial encounter LIMITED ORAL EVALUATION - PROBLEM FOCUSED Routine 04/19/2025 11:30 AM EST Dental caries Open fracture of tooth, initial encounter POCT GLYCATED HEMOGLOBIN, TOTAL Routine 04/14/2025 3:05 PM EST Type 2 diabetes mellitus with other specified complication, with long-term current use of insulin (HCC) POCT GLUCOSE Routine 04/14/2025 3:02 PM EST Type 2 diabetes mellitus with other specified complication, with long-term current use of insulin (HCC) DENTURE FOLLOWUP Routine 03/08/2025 11:0 0 AM [...] with long-term current use of insulin (HCC) Hypertension, unspecified type ALBUMIN, RANDOM URINE W/CREATININE Routine 02/12/2025 9:37 AM EDT Type 2 diabetes mellitus with other specified complication, with long-term current use of insulin ([facility]) LIPID PANEL, STANDARD Routine 02/12/2025 9:37 AM EDT Type 2 diabetes mellitus with other specified complication, with long-term current use of insulin ([facility]) DENTURE IMPRESSION Routine 02/12/2025 9: 00 AM EDT Missing teeth, acquired PROPHYLAXIS - ADULT Routine 10/01/2024 1 0:00 [...] Recently Relevant to Health Maintenance Results * TSH with Reflex to Free T4 (04/28/2025 5:41 PM EST) TSH reflex Free T4 0.71 0.32 - 4.0 uIU/mL [facility] 04/28/2025 5:41 PM EST 04/28/2025 5:47 PM EST us Generic External Data Provider LAB BLOOD ORDERAB LES Final Result Performing Organization Address [facility] de Phone Number [facility] [address] [place] [phone] * SARS-CoV-2 RNA, Influenza A/B, and RSV RNA, Ql NAAT (04/28/2025 5:41 PM EST) Pathologist [facility] Influenza A PCR NEGATIVE Negative [facility] Influenza B PCR NEGATIVE Negative [facility] Resp Syncy Virus RNA Qual PCR NEGATIVE Negative [facility] SARS COV2 PCR NEGATIVE Negative [facility] Comment:All test results mus t [...] use by authorized laboratories.Testing performed on the [employer] GeneXpert utilizingreal-time RT-PCR.All SARS CoV2 and positive influenza A/B results arereported to [facility]. 04/28/2025 5:41 PM EST 04/28/2025 5:47 PM EST Generic External Data Provider LAB MICROBIOLOGY - GENERAL ORDERABLES Final Result Performing Organization Address [facility] Co de Phone Number [facility] [address] [place] [phone] * (ABNORMAL) CBC auto differential (04/28/2025 2:06 PM EST) Pathologist [facility] White Blood Count 7.6 4.8 - 10.8 X10*3/uL [facility] Red Blood Count 4.45 4.20 - 5.50 X10*6/uL [facility] Hemoglobin 11.7(L) 12.0 - 16.0 g/dl [facility] Hematocrit 38.1 37.0 - 47.0 % [facility] Mean Corpuscular Volume 85.6 80.0 - 98.0 fL [facility] Mean Corpuscular Hemoglobin 26.3(L) 27.0 - 33.0 pg [facility] Mean Corpuscular HGB Conc 30.7(L) 31.0 - 35.0 g/dl [facility] Red Cell Distribution Width 14.4 11.0 - 16.0 % [facility] Platelet Count 189 160 - 400 X10*3/uL [facility] Mean Platelet Volume 10.8 9.4 - 12.3 fL [facility] Neutrophils Percent Auto 71.2 45 - 73 % [facility] Imm Gran Pct Auto 0.3 0.0 - 0.4 % [facility] Lymphocytes Percent Auto 19.2(L) 20 - 40 % [facility] Monocytes Percent Auto 7.6 2 - 11 % [facility] Eosinophils Percent Auto 1.2 0 - 4 % [facility] Basophils Percent Auto 0.5 0 - 2 % [facility] NRBC Pct Auto 0.0 0.0 - 0.2 /100WBC [facility] Neutrophils Absolute Auto 5.4 2.0 - 8.3 x10*3/uL [facility] Imm Gran Abs Auto 0.02 0.00 - 0.03 X10*3/uL [facility] Lymphocytes Absolute Auto 1.5 1.2 - 4.9 X10*3/uL [facility] Monocytes Absolute Auto 0.6 0.1 - 1.2 X10*3/uL [facility] Eosinophils Absolute Auto 0.1 0.0 - 0.4 X10*3/uL [facility] Basophils Absolute Auto 0.0 0.0 - 0.2 X10*3/uL [facility] NRBC Abs Auto 0.000 0.0 - 0.012 X10*3/uL [facility] 04/28/2025 2:06 PM EST 04/28/2025 2:15 PM EST Generic External Data Provider LAB BLOOD ORDERAB LES Final Result Performing Organization Address [facility] Co de Phone Number [facility] [address] [place] [phone] * Prothrombin Time-INR (04/28/2025 2:06 PM EST) Prothrombin Time 13.5 11.2 - 13.5 SEC [facility] INTERNATIONAL NORM RATIO 1.1 0.9 - 1.1 [facility] Comment:INTERNATIONAL NORMAL IZED RATIO (INR) [...] ORDERAB LES Final Result Performing Organization Address [facility] Co de Phone Number [facility] [address] [place] [phone] * Type and screen (04/28/2025 2:06 PM EST) Blood Type ON [facility] Antibody Screen NEGATIVE [facility] 04/28/2025 2:06 PM EST 04/28/2025 2:18 PM EST Generic External Data Provider LAB BLOOD BANK TE ST ORDERABLES Final Result Performing Organization Address [facility] Co de Phone Number [facility] [address] [place] [phone] * Magnesium (04/28/2025 2:06 PM EST) Magnesium 1.6 1.6 - 2.6 mg/dL [facility] 04/28/2025 2:06 PM EST 04/28/2025 2:15 PM EST us Generic External Data Provider LAB BLOOD ORDERAB LES Final Result [facility] [address] [place] [phone] * (ABNORMAL) Comprehensive Metabolic Panel (04/28/2025 2:06 PM EST) Sodium 140 135 - 145 mmol/L [facility] Potassium 4.7 3.3 - 5.1 mmol/L [facility] Chloride 108 96 - 108 mmol/L [facility] Carbon Dioxide 23 22 - 29 mmol/L [facility] Anion Gap 14 12 - 20 [facility] Urea Nitrogen (BUN) 24(H) 9 - 16 mg/dL [facility] Creatinine, Serum 1.44(H) 0.5 - 1.4 mg/dL [facility] Creatinine Clr Calc Pharmacy 40.0 [facility] Comment:Provided height and weight: 160.02 cm,83.915 kg.eGFR (calculated from the MDRD study equation) and eCrCl(calculated from the Cockcroft-Gault equation) are based ondifferent parameters and may not yield comparable results.If eCrCl result is absurd, please check patient'sheight/weight. Estimated Glomerular Filt Rate 37 [facility] Comment:Chronic Kidney Disea se: Estimated GFR < 60 mL/min/1.03j7Zdrofu Kidney Disease: Estimated GFR < 15 mL/min/1.73m2 Glucose 81 60 - 115 mg/dL [facility] Calcium 9.8 8.4 - 10.2 mg/dL [facility] Bilirubin, Total 0.3 0.0 - 1.0 mg/dL [facility] Aspartate Amino Transferase 20 5 - 31 U/L [facility] Alanine Aminotransferase 12 0 - 31 U/L [facility] Total Protein 8.0 6.5 - 8.0 g/dL [facility] Albumin Level 4.8 3.5 - 5.0 g/dL [facility] Alkaline Phosphatase 76 39 - 117 U/L [facility] 04/28/2025 2:06 PM EST 04/28/2025 2:15 PM EST Generic External Data Provider LAB BLOOD ORDERAB LES Final Result Performing Organization Address City/State/[facility] Co de Phone Number [facility] [address] [place] [phone] * POCT Hgb A1c (04/14/2025 3:05 PM EST) Hemoglobin A1C 5.7 4.0 - 5.7 % QC Media Lot # [id number] Lot# Expiration Date [id number] Blood 04/14/2025 3:05 PM EST Henry Bernardo MD POINT OF CARE TEST ENTER/EDIT OR DERABLES Final Result * POCT Glucose (04/14/2025 3:02 PM EST) Glucose Blood, POC 92 60 - 200 mg/dL QC Media Lot # [id number] Lot# Expiration Date [id number] Blood Capillary blood specimen / Unknown 04/14/2025 3:02 PM EST Result [facility] Henry Bernardo MD POINT OF CARE TEST ENTER/EDIT OR DERABLES Final Result * Albumin, Random Urine W/Creatinine (02/12/2025 9:37 AM EDT) Creatinine, Urine 137.14 mg/dL [facility] Microalbumin Urine 14.0 mg/L [facility] Microalbum Creatinine Ratio Ur 10.2 <30 ug/mg cr [facility] Comment:Albumin/Creatinine R atio Reference Ranges: Normal: < 30 ug/mg creatinine Microalbuminuria: 30 - 300 ug/mg creatinineClinical Albuminuria: > 300 ug/mg creatinine Urine (Urine, Random) 02/12/2025 9:37 AM EDT 02/12/2025 11:20 AM EDT us Henry Bernardo MD LAB URINE ORDERABLES Final Resul t Performing Organization Address [facility] [place] de Phone Number [facility] [address] [place] [address] [phone] * (ABNORMAL) Lipid Panel, Standard (02/12/2025 9:37 AM EDT) Triglycerides 149 <150 mg/dL [facility] Comment:Desirable Triglyceri de: less than 150 mg/dLBorderline High Triglyceride 150-199 mg/dLHigh Triglyceride: 200-499 mg/dLVery High Triglyceride: greater than or equal to 5OO mg/dL Cholesterol 150 <200 mg/dL [facility] Comment:Desirable Cholestero l: less than 200 mg/dLBorderline High Cholesterol: 200-239 mg/dLHigh Cholesterol: greater than 239 mg/dL LDL Cholesterol Calculated 81 <100 mg/dL [facility] Comment:Desirable LDL: less than 100 mg/dLNear Optimal/Above Optimal LDL: 110- 129 mg/dLBorderline High LDL: 130-159 mg/dLHigh LDL: 160-189 mg/dLVery High LDL: greater than or equal to 190 mg/dL HDL Cholesterol 40(L) >40 mg/dL [facility] Comment:Desirable HDL: great er than 40 mg/dL Note: This HDL assay may give artificially low results in patients with liver disease. Blood Venous blood specimen / Unknown 02/12/2025 9:37 AM EDT 02/12/2025 11:26 AM EDT us Henry Bernardo MD LAB BLOOD ORDERABLES Final Resul t Performing Organization Address [facility] Co de Phone Number [facility] [address] [place] [phone] * (ABNORMAL) Basic Metabolic Panel (02/12/2025 9:37 AM EDT) Sodium 142 135 - 145 mmol/L [facility] Potassium 5.0 3.3 - 5.1 mmol/L [facility] Chloride 111(H) 96 - 108 mmol/L [facility] Carbon Dioxide 25 22 - 29 mmol/L [facility] Anion Gap 11(L) 12 - 20 [facility] Urea Nitrogen (BUN) 34(H) 9 - 16 mg/dL [facility] Creatinine, Serum 1.32 0.5 - 1.4 mg/dL [facility] Estimated Glomerular Filt Rate 40 [facility] Comment:Chronic Kidney Disea se: Estimated GFR < 60 mL/min/1.97d9Aoqnrh Kidney Disease: Estimated GFR < 15 mL/min/1.73m2 Glucose 98 60 - 115 mg/dL [facility] Calcium 9.3 8.4 - 10.2 mg/dL [facility] Blood Venous blood specimen / Unknown 02/12/2025 9:37 AM EDT 02/12/2025 11:26 AM EDT us Henry Bernardo MD LAB BLOOD ORDERABLES Final Resul t Performing Organization Address City/State/[facility] Co de Phone Number [facility] [address] [place] [phone] * Mammography Report 1 (05/31/2021 12:50 [...] us Historical Provider HEALTH MAINTENANCE Final Result from [...] neuropathy 04/28/2025 Patient has diabetic neuropathy 04/28/2025 Insurance [facility] INTERMEDIATE OPTIONS (HMO D-SNP) D[facility]AL-[facility] MEDICAID [facility] ADULT DENTAL [facility] Care Teams Automation/Controls Manager Relationship Specialty Start Date End Date Name, MD Henry [address] [place] [phone] PCP - General Family Medicine 08/19/15 Finn Galindo Adult High School InstructorDynamometer Mechanic 08/06/23 Mari Carrion Pawn Shop KeeperDynamometer Mechanic 12/03/23 Chiquita 01/18/24
--- OUTSIDE RECORDS SUMMARY | 2025-04-28 21:03 | XMS_ITS | Encounter Summary ---
Author Organization [employer] Address [address] [facility] 7t [place] [address] Care Team Providers Care Enterprise Engineer Name Role Phone Name, Henry BARTLETT Primary Care Provider [phone] Reason for Visit * Reason Comments Med Refill Encounter Details Date Type Department Care Team ([facility] st Contact Info) Description 08/05/2024 Refill [facility] [address] [place], [place] [phone] Name, MD Henry [address] [place] [address] Chronic pain syndrome Social History Tobacco Use [...] Description 04/30/2025 9:30 AM EST Telemedicine [facility] [address] [place] [phone] Suni Rodriguez RN 06/08/2025 9:30 AM EST Office Visit [facility] [address] [place] [address] Clarisse Bar [address] [place] [address] 06/21/2025 10:30 AM EST Office Visit [facility] [address] [place] [address] Holger Marquez DDS [address] [place] [address] 06/22/2025 3:15 PM EST Office Visit [facility] [address] [place] [address] NameHenry MD [address] [place] [phone] documented as of this encounter Visit Diagnoses Diagnosis Chronic pain syndrome documented in this encounter Additional Health Concerns Assessment Noted Time PHQ-9 Depression Total Score: 6 09/14/19 23 9:53 AM EDT documented as of this encounter Care Teams Enterprise Engineer Relationship Specialty Start Date End Date Henry Bernardo MD [address] [place] [address] PCP - General Family Medicine 08/19/15 Finn Galindo Tack PullerDelivery Crew Member 08/06/23 Mari Carrion Mechanical Maintenance WorkerDelivery Crew Member 12/03/23 Chiquita 01/18/24 documented as of this encounter
--- OUTSIDE RECORDS SUMMARY | 2025-04-28 21:03 | XMS_ITS | Encounter Summary ---
Author Organization [employer] Address [address] [facility] 7t [place] [address] Care Team Providers Care Bin Worker Name Role Phone Name, Henry BARTLETT Primary Care Provider [phone] Reason for Visit * Reason Comments Med Refill Encounter Details Date Type Department Care Team ([facility] st Contact Info) Description 03/12/2025 Refill [facility] [address] [place] [address] Yue Olsen, LANCE [address] [place] [address] Chronic pain syndrome Social History Tobacco Use [...] Info) Description 04/30/2025 9:30 AM EST Telemedicine [facility] [address] [place] [phone] Suni Rodriguez, RN 06/08/2025 9:30 AM EST Office Visit [facility] [address] [place] [phone] Clarisse Bar [address] [place] [address] 06/21/2025 10:30 AM EST Office Visit [facility] [address] [place] [address] Holger Marquez DDS [address] [place] [address] 06/22/2025 3:15 PM EST Office Visit [facility] [address] [place] [phone] Name, MD Henry [address] [place] [address] documented as of this encounter Visit Diagnoses Diagnosis Chronic pain syndrome documented in this encounter Additional Health Concerns Assessment Noted Time PHQ-9 Depression Total Score: 24 025 11:00 AM EDT documented as of this encounter Care Teams Bin Worker Relationship Specialty Start Date End Date Name, MD Henry [address] [place] [address] PCP - General Family Medicine 08/19/15 Finn Galindo Contracting OfficerPin Cleaner 08/06/23 Mari Carrion English InstructorPin Cleaner 12/03/23 Chiquita 01/18/24 documented as of this encounter
--- OUTSIDE RECORDS SUMMARY | 2025-04-28 21:03 | XMS_ITS | Encounter Summary ---
Author Organization [employer] Address [address] [facility] 7t [place] [address] Care Team Providers Care Violin Mechanic Name Role Phone Name, Henry BARTLETT Primary Care Provider [phone] Reason for Visit * Reason Comments Med Refill Encounter Details Date Type Department Care Team ([facility] st Contact Info) Description 07/09/2024 Refill [facility] [address] [place], [place] [phone] Name, MD Henry [address] [place], [place] [phone] Chronic pain syndrome Social History Tobacco Use [...] Info) Description 04/30/2025 9:30 AM EST Telemedicine [facility] [address] [place] [address] Suni Rodriguez RN 06/08/2025 9:30 AM EST Office Visit [facility] [address] [place] [address] Clarisse Bar [address] [place] [address] 06/21/2025 10:30 AM EST Office Visit [facility] [address] [place] [address] Holger Marquez DDS [address] [place] [address] 06/22/2025 3:15 PM EST Office Visit [facility] [address] [place] [address] NameHenry MD [address] [place] [address] documented as of this encounter Visit Diagnoses Diagnosis Chronic pain syndrome documented in this encounter Additional Health Concerns Assessment Noted Time PHQ-9 Depression Total Score: 6 09/14/19 23 9:53 AM EDT documented as of this encounter Care Teams Violin Mechanic Relationship Specialty Start Date End Date Henry Bernardo MD [address] [place] [phone] PCP - General Family Medicine 08/19/15 Finn Galindo Corporate Account ExecutiveMarket Development Specialist 08/06/23 Mari Carrion Family MediatorMarket Development Specialist 12/03/23 Chiquita 01/18/24 documented as of this encounter
--- OUTSIDE RECORDS SUMMARY | 2025-04-28 21:03 | XMS_ITS | Clinical Summary ---
Author Organization [address] [place] [address] [place] [phone] Phone Care Team Providers Care Seismic Computer Name Role Phone Unavailable Primary Care Provider [...] 10:15 AM EST Consult Orthopedic Surgery - [address] [place] [phone] Tony Vigil, DPM Ingrowing nail (Primary Dx); Dermatophytosis of nail; Diabetic mononeuropathy simplex ([facility]/HCC V24, CMS/HCC V28) from Last 3 Months Immunizations Immunization Administration Dates Next Due Pfizer SARS-CoV-2 COVID-19, mRNA, LNP-S, preservative free 02/28/2021,06/16/2020,05/26/2020 Surgical History Surgery Date Site/Laterality Comments KNEE ARTHROSCOPY PROCEDURE: CO ARTHROSCOPY AID TX SPINE&/FX KNEE W/O FIXJ HYSTERECTOMY PROCEDURE: HISTORICAL HYSTERECTOMY HERNIA REPAIR PROCEDURE: HISTORICAL HERNIA REPAIR/ING CHOLECYSTECTOMY PROCEDURE: HISTORICAL CHOLECYSTECTOMY ESOPHAGOGASTRODUODENOSCOPY 2002? PROCEDURE: CO ESOPHAGOGASTRODUODENOSCOPY TRANSORAL DIAGNOSTIC; COMMENT: h pylori gatritis? COLONOSCOPY 2004 PROCEDURE: CO COLONOSCOPY FLX DX W/COLLJ SPEC WHEN PFRMD; COMMENT: normal? (done for evaluation of rectal bleeding) ESOPHAGOGASTRODUODENOSCOPY 09/20/2009 PROCEDURE: CO EGD TRANSORAL BIOPSY SINGLE/MULTIPLE; COMMENT: Esophagus normal, bilious fluid in the stomach, antral gastritis-biopsy:mild reactive gastropathy (HPylori-), normal SB TOTAL KNEE ARTHROPLASTY PROCEDURE: HISTORICAL TOTAL KNEE REPLACE; COMMENT: both knees (2010 and 2009) SINUS SURGERY 2010 PROCEDURE: CO UNLISTED PROCEDURE ACCESSORY SINUSES; COMMENT: date approximate; [...] on file Sexual Orientation Not on file Plan of Treatment Health Maintenance Due Date [...] Documents on File Type Date Recorded Patient Superintendent Tests Expl anation Health Care Decision (hx) 12/04/2023 AD DONOVAN DIRECTIVE Health Care Decision (hx) 11/11/2023 AD DONOVAN DIRECTIVE Health Care Decision (hx) 11/11/2023 AD DONOVAN DIRECTIVE Health Care Decision (hx) 11/11/2023 AD DONOVAN DIRECTIVE
--- OUTSIDE RECORDS SUMMARY | 2025-04-28 21:03 | XMS_ITS | Encounter Summary ---
Author Organization [employer] Address [address] [facility] 7t [place] [address] Care Team Providers Care Home Connect Lpn Name Role Phone Name, Henry BARTLETT Primary Care Provider [phone] Reason for Visit * Reason Onset Date Comments Prior Authorization 09/18/2023 Encounter Details Date Type Department Care Team ([facility] st Contact Info) Description 09/18/2023 Telephone [facility] [address] [place], [place] [phone] Name, MD Henry [address] [place] [address] Prior Authorization Social History Tobacco Use Types [...] 100 MG capsule unsure if medication needed PA.Welfare Supervisor spoke with pharmacy in which they stated medication needs a PA renewal. documented in this encounter Plan of Treatment Upcoming Encounters Date Type Department Care Team (Late st Contact Info) Description 04/30/2025 9:30 AM EST Telemedicine [facility] [address] [place] [address] Suni Rodriguez RN 06/08/2025 9:30 AM EST Office Visit [facility] [address] [place] [address] Clarisse Bar [address] [place] [address] 06/21/2025 10:30 AM EST Office Visit [facility] [address] [place] [address] Holger Marquez DDS [address] [place] [address] 06/22/2025 3:15 PM EST Office Visit [facility] [address] [facility] [place] [address] Name, [place] [address] documented as of this encounter Visit Diagnoses Not on filedocumented in this encounter Additional Health Concerns Assessment Noted Time PHQ-9 Depression Total Score: 6 09/14/19 23 9:53 AM EDT documented as of this encounter Care Teams Home Connect Lpn Relationship Specialty Start Date End Date Name, MD Henry [facility] [place] [address] PCP - General Family Medicine 08/19/15 Finn Galindo Glove SewerPatch Driller 08/06/23 Mari Carrion Head Of Human ResourcesPatch Driller 12/03/23 Chiquita 01/18/24 documented as of this encounter
== END 2025-04-28 18:48 | disposition home or self-care (01) ==
PROVIDERS: Registered Nurse Emergency; Emergency Provider Student in an Organized Health Care Education/Training Program; PCP Internal Medicine Geriatric Medicine
DX: K52.9 Noninfective gastroenteritis and colitis, unspecified (principal); R11.2 Nausea with vomiting, unspecified; Z03.818 Encounter for observation for suspected exposure to other biological agents ruled out; J44.9 Chronic obstructive pulmonary disease, unspecified; M79.10 Myalgia, unspecified site; R10.9 Unspecified abdominal pain; R53.83 Other fatigue; E11.9 Type 2 diabetes mellitus without complications; E78.00 Pure hypercholesterolemia, unspecified; J45.909 Unspecified asthma, uncomplicated; I10 Essential (primary) hypertension; G30.9 Alzheimer's disease, unspecified; F02.80 Dementia in other diseases classified elsewhere, unspecified severity, without behavioral disturbance, psychotic disturbance, mood disturbance, and anxiety; Z79.899 Other long term (current) drug therapy
CPT/HCPCS: 36415; 80053; 83735; 84443; 85025; 85610; 86850; 86900; 86901; 87637; 96361; 96374; 99283; 99284; J2405